=== PATIENT | male | born 1935 | race Caucasian/White ===

== ENCOUNTER 2016-10-24 13:17 | Inpatient (IN) | payer MEDICARE, OTHER ==
[2016-10-24] MEDS ORDERED: SODIUM CHLORIDE 0.9% 500 ML IV STA (14:13)
--- NOTE | 2016-10-24 14:15 | ED ---
GI Bleed HPI - General Source: patient, RN notes reviewed Mode of arrival: ambulatory Limitations: no limitations <Kobe Harman - Last Filed: 10/24/16 15:19> <Ean Thomas - Last Filed: 10/24/16 15:30> - General Chief complaint: GI Bleed Stated complaint: rectal bleeding Time Seen by Provider: 10/24/16 14:00 - History of Present Illness Initial comments: 81-year-old male presents emergency Department chief complaint rectal bleeding. Patient states has been present last 3-4 days. He did have one day that dissipated yesterday but states today he had a large amount of bright red blood. Patient states he has some pain towards his rectal region but states he has known hemorrhoids. Patient states she had similar problems a few months ago and was she told him his prostate was bleeding secondary to previous radiation. Patient states that they want to keep him another day in the hospital but left. Patient denies any dysuria, hematuria, hematemesis copremesis. Patient is not taking aspirin or blood thinners. Patient has no abdominal pain no abdominal cramping. Denies nausea vomiting. Patient states there is a large amount of blood when he has a bowel movement and only minimal stool. (Kobe Harman) - Related Data Home Medications Medication Instructions Recorded Confirmed Furosemide [Lasix] 20 mg PO DAILY 07/06/16 10/24/16 Metoprolol Tartrate [Lopressor] 50 mg PO BID 07/06/16 10/24/16 Umeclidinium [place] [Incruse 1 puff INHALATION RT-DAILY 07/06/16 10/24/16 Ellipta] metFORMIN HCL ER [Glucophage Xr] 500 mg PO DAILY 07/06/16 10/24/16 Gabapentin [Neurontin] 100 mg PO TID 10/24/16 10/24/16 Levothyroxine Sodium [Synthroid] 137 mcg PO DAILY 10/24/16 10/24/16 Naphazoline HCl/Glycerin [Clear 1 drop BOTH EYES DAILY PRN 10/24/16 10/24/16 Eyes Max Redness Rlf Drp] Allergies Allergy/AdvReac Type Severity Reaction Status Date / Time No Known Allergies Allergy Verified 10/24/16 14:37 Review of Systems ROS Other: All systems not noted in ROS Statement are negative. <Kobe Harman - Last Filed: 10/24/16 15:19> ROS Other: All systems not noted in ROS Statement are negative. <Ean Thomas - Last Filed: 10/24/16 15:30> ROS Statement: Those systems with pertinent positive or pertinent negative responses have been documented in the HPI. Past Medical History Past Medical History: Cancer, Diabetes Mellitus, GERD/Reflux, Hypertension, Prostate Disorder, Thyroid Disorder Additional Past Medical History / Comment(s): thyroid cancer, skin cancer, ENLARGED PROSTATE,DIVERTICULAR DX,"HEART SKIPS A BEAT", prostate cancer 2015 3 months radiation last one jun 23 2015 History of Any Multi-Drug Resistant Organisms: None Reported Past Surgical History: Bowel Resection Additional Past Surgical History / Comment(s): thyroidectomy, colonoscopy/ polypectomy, skin cancer removed, cataracts, bowel resection-d/t diverticulits Past Anesthesia/Blood Transfusion Reactions: No Reported Reaction Past Psychological History: No Psychological Hx Reported Additional Psychological History / Comment(s): pt lives in a house,alone,is independant,uses a cane. 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 Smoking Status: Current every day smoker Past Alcohol Use History: Daily Additional Past Alcohol Use History / Comment(s): started smoking in his mid 30' s, 1ppd, refused smoking cessation booklet. admits to drinking 1/4 pint vodka daily. Past Drug Use History: None Reported - Past Family History Father Family Medical History: Asthma, CVA/TIA Additional Family Medical History / Comment(s): pacemaker, smoker Mother Family Medical History: Chest Pain / Angina Additional Family Medical History / Comment(s): smoker <Kobe Harman - Last Filed: 10/24/16 15:19> General Exam Limitations: no limitations General appearance: alert, in no apparent distress Head exam: Present: atraumatic, normocephalic, normal inspection Eye exam: Present: normal appearance, PERRL, EOMI. Absent: scleral icterus, conjunctival injection, periorbital swelling Respiratory exam: Present: wheezes. Absent: normal lung sounds bilaterally, respiratory distress, rales, rhonchi, stridor Cardiovascular Exam: Present: regular rate, normal rhythm, systolic murmur. Absent: normal heart sounds, diastolic murmur, rubs, gallop, clicks GI/Abdominal exam: Present: soft, normal bowel sounds. Absent: distended, tenderness, guarding, rebound, rigid Rectal exam: Present: heme (+) stool, bloody stool. Absent: hemorrhoids, mass, tenderness Back exam: Absent: CVA tenderness (R), CVA tenderness (L) <Kobe Harman - Last Filed: 10/24/16 15:19> Course <Kobe Harman - Last Filed: 10/24/16 15:19> <Ean Thomas - Last Filed: 10/24/16 15:30> Vital Signs 10/24/16 13:32 Temperature 98.1 F Pulse Rate 118 H Respiratory 18 Rate Blood Pressure 124/60 O2 Sat by Pulse 97 Oximetry - Reevaluation(s) Reevaluation #1: 10/24/16 15:29 I did personally do a [id number] examination the patient has been having GI bleeding he does have a history of a similar episode in June of this past year. He relates it to having radiation therapy for prostate cancer. He's had blood per rectum. He denies any other symptoms at this time he has no abdominal pain is had a soft and nontender. He will be admitted for evaluation by GI. I did discuss the case with Dr. Lockett (Ean Thomas) Medical Decision Making - Lab Data Result diagrams: 10/24/16 13:54 10/24/16 13:54 <Kobe Harman - Last Filed: 10/24/16 15:19> - Lab Data Result diagrams: 10/24/16 13:54 10/24/16 13:54 <Ean Thomas - Last Filed: 10/24/16 15:30> - Lab Data Lab Results 10/24/16 10/24/16 10/24/16 Range/Units 13:54 13:54 13:54 WBC 3.3 L (3.8-10.6) k/uL RBC 2.77 L (4.30-5.90) m/uL Hgb 11.1 L (13.0-17.5) gm/dL Hct 32.4 L (39.0-53.0) % MCV 117.0 H (80.0-100.0) fL MCH 40.0 H (25.0-35.0) pg MCHC 34.2 (31.0-37.0) g/dL RDW 14.2 (11.5-15.5) % Plt Count 284 (150-450) k/uL PT 10.7 (9.0-12.0) sec INR 1.1 (<1.1) APTT 24.2 (22.0-30.0) sec Sodium 139 (137-145) mmol/L Potassium 4.3 (3.5-5.1) mmol/L Chloride 101 (98-107) mmol/L Carbon Dioxide 25 (22-30) mmol/L Anion Gap 13 mmol/L BUN 5 L (9-20) mg/dL Creatinine 0.60 L (0.66-1.25) mg/dL Est GFR (MDRD) Af Amer >60 (>60 ml/min/1.73 sqM) Est GFR (MDRD) Non-Af >60 (>60 ml/min/1.73 sqM) Glucose 164 H (74-99) mg/dL Calcium 8.6 (8.4-10.2) mg/dL Magnesium 1.4 L (1.6-2.3) mg/dL Total Bilirubin 0.6 (0.2-1.3) mg/dL AST 96 H (17-59) U/L ALT 41 (21-72) U/L Alkaline Phosphatase 105 (38-126) U/L Total Protein 5.9 L (6.3-8.2) g/dL Albumin 3.0 L (3.5-5.0) g/dL Stool Occult Blood (Negative) Blood Type Blood Type Recheck Antibody Screen Spec Expiration Date 10/24/16 10/24/16 Range/Units 13:54 14:25 WBC (3.8-10.6) k/uL RBC (4.30-5.90) m/uL Hgb (13.0-17.5) gm/dL Hct (39.0-53.0) % MCV (80.0-100.0) fL MCH (25.0-35.0) pg MCHC (31.0-37.0) g/dL RDW (11.5-15.5) % Plt Count (150-450) k/uL PT (9.0-12.0) sec INR (<1.1) APTT (22.0-30.0) sec Sodium (137-145) mmol/L Potassium (3.5-5.1) mmol/L Chloride (98-107) mmol/L Carbon Dioxide (22-30) mmol/L Anion Gap mmol/L BUN (9-20) mg/dL Creatinine (0.66-1.25) mg/dL Est GFR (MDRD) Af Amer (>60 ml/min/1.73 sqM) Est GFR (MDRD) Non-Af (>60 ml/min/1.73 sqM) Glucose (74-99) mg/dL Calcium (8.4-10.2) mg/dL Magnesium (1.6-2.3) mg/dL Total Bilirubin (0.2-1.3) mg/dL AST (17-59) U/L ALT (21-72) U/L Alkaline Phosphatase (38-126) U/L Total Protein (6.3-8.2) g/dL Albumin (3.5-5.0) g/dL Stool Occult Blood Positive (Negative) Blood Type A Positive Blood Type Recheck CABO Indicated Antibody Screen NEGATIVE Spec Expiration Date 10/27/2016 7990 Disposition Time of Disposition: 15:14 <Kobe Harman - Last Filed: 10/24/16 15:19> <Ean Thomas - Last Filed: 10/24/16 15:30> Clinical Impression: GI bleed, Anemia Disposition: ADMITTED IP TO THIS [facility] Condition: Fair Referrals: Jesse Gee MD [Primary Care Provider] - 1-2 days
[2016-10-24 14:32] LABS: Basophils % (A) 1 %; CH 39.4; CHCM 33.8; Eosinophils # (A) 0.1 k/uL (0-0.7); Eosinophils % (A) 1 %; HCT 32.4 % (39.0-53.0); HDW 2.41; HGB 11.1 gm/dL (13.0-17.5); Luc # (Auto) 0.09; Luc % (Auto) 3; Lymphocytes # (A) 0.6 k/uL (1.0-4.8); Lymphocytes % (A) 18 %; MCHC 34.2 g/dL (31.0-37.0); Macrocytosis Marked; Mean Platelet Volume 7.7; Monocytes # (A) 0.2 k/uL (0-1.0); Monocytes % (A) 7 %; Neutrophils # (A) 2.3 k/uL (1.3-7.7); Neutrophils % (A) 71 %; RBC 2.77 m/uL (4.30-5.90); RDW 14.2 % (11.5-15.5); WBC 3.3 k/uL (3.8-10.6)
[2016-10-24 14:40] LABS: INR 1.1 (<1.1); Partial Thromboplastin Time 24.2 sec (22.0-30.0); Prothrombin Time 10.7 sec (9.0-12.0)
[2016-10-24 14:45] LABS: ALT 41 U/L (21-72); AST 96 U/L (17-59); Alkaline Phosphatase 105 U/L (38-126); Anion Gap 13 mmol/L; Blood Urea Nitrogen 5 mg/dL (9-20); Calcium 8.6 mg/dL (8.4-10.2); Carbon Dioxide 25 mmol/L (22-30); Chloride 101 mmol/L (98-107); Glucose 164 mg/dL (74-99); Magnesium 1.4 mg/dL (1.6-2.3); Non-African American GFR(MDRD) >60 (>60 ml/min/1.73 sqM); Potassium 4.3 mmol/L (3.5-5.1); Sodium 139 mmol/L (137-145); Total Bilirubin 0.6 mg/dL (0.2-1.3); Total Protein 5.9 g/dL (6.3-8.2)
[2016-10-24] MEDS ORDERED: ACETAMINOPHEN TAB 325 MG TAB PO PRN (15:19)
[2016-10-24] MEDS ORDERED: NALOXONE 0.4 MG/ML 1 ML VIAL IV PRN (15:19)
[2016-10-24] MEDS ORDERED: NAPHAZOLINE-PHENIRA 0.025-0.3% DROPS 15 ML BTL BOTH EYES PRN (15:21)
[2016-10-24 15:54] LABS: Manual Review Performed
[2016-10-24] MEDS: GABAPENTIN 100 MG CAP PO SCH ×2 (16:37→21:33)
[2016-10-24] MEDS ORDERED: SODIUM CHLORIDE 0.9% 1,000 ML IV ONE ×2 (16:51→18:34)
[2016-10-24 16:52] LABS: Glucose,Whole Blood 127 mg/dL (75-99)
[2016-10-24] MEDS: METOPROLOL TARTRATE 50 MG TAB PO SCH (18:32)
[2016-10-24] MEDS: SODIUM CHLORIDE 0.9% 1,000 ML IV SCH (18:33)
[2016-10-24 19:38] LABS: Basophils % (A) 1 %; CH 39.2; CHCM 33.5; Eosinophils # (A) 0.1 k/uL (0-0.7); Eosinophils % (A) 2 %; HDW 2.41; Luc # (Auto) 0.05; Luc % (Auto) 2; Lymphocytes # (A) 0.5 k/uL (1.0-4.8); Lymphocytes % (A) 18 %; MCH 39.8 pg (25.0-35.0); MCHC 33.9 g/dL (31.0-37.0); MCV 117.4 fL (80.0-100.0); Macrocytosis Marked; Mean Platelet Volume 7.5; Monocytes # (A) 0.2 k/uL (0-1.0); Monocytes % (A) 6 %; Neutrophils # (A) 2.1 k/uL (1.3-7.7); Neutrophils % (A) 72 %; RDW 14.1 % (11.5-15.5); WBC 2.9 k/uL (3.8-10.6); WBC (Perox) 2.96
[2016-10-24 19:51] LABS: HGB 9.2 gm/dL (13.0-17.5)
[2016-10-24 20:58] LABS: Manual Review Performed
[2016-10-24] MEDS ORDERED: metFORMIN 500 MG TAB PO SCH (21:00)
[2016-10-24] MEDS: MELATONIN 3 MG TABLET PO SCH (21:33)
[2016-10-25 01:20] LABS: Basophils % (A) 1 %; CHCM 33.6; Eosinophils # (A) 0.1 k/uL (0-0.7); Eosinophils % (A) 4 %; HCT 25.3 % (39.0-53.0); HDW 2.39; HGB 8.5 gm/dL (13.0-17.5); Luc # (Auto) 0.06; Luc % (Auto) 3; Lymphocytes # (A) 0.6 k/uL (1.0-4.8); Lymphocytes % (A) 24 %; MCH 39.3 pg (25.0-35.0); MCHC 33.7 g/dL (31.0-37.0); MCV 116.5 fL (80.0-100.0); Macrocytosis Marked; Mean Platelet Volume 8.3; Monocytes # (A) 0.2 k/uL (0-1.0); Monocytes % (A) 7 %; Neutrophils # (A) 1.5 k/uL (1.3-7.7); Neutrophils % (A) 62 %; RBC 2.17 m/uL (4.30-5.90); RDW 14.3 % (11.5-15.5); WBC 2.4 k/uL (3.8-10.6); WBC (Perox) 2.52
[2016-10-25 02:15] LABS: Manual Review Performed
[2016-10-25] MEDS: SODIUM CHLORIDE 0.9% 1,000 ML IV SCH ×2 (03:34→18:07)
[2016-10-25] MEDS: LEVOTHYROXINE 137 MCG TAB PO SCH (06:17)
[2016-10-25 08:00] LABS: Basophils % (A) 1 %; CHCM 33.2; Eosinophils # (A) 0.1 k/uL (0-0.7); Eosinophils % (A) 3 %; HCT 26.2 % (39.0-53.0); HDW 2.33; HGB 8.7 gm/dL (13.0-17.5); Luc # (Auto) 0.05; Luc % (Auto) 2; Lymphocytes # (A) 0.5 k/uL (1.0-4.8); Lymphocytes % (A) 22 %; MCH 39.3 pg (25.0-35.0); MCHC 33.4 g/dL (31.0-37.0); MCV 117.8 fL (80.0-100.0); Macrocytosis Marked; Mean Platelet Volume 8.6; Monocytes # (A) 0.1 k/uL (0-1.0); Monocytes % (A) 6 %; Neutrophils # (A) 1.4 k/uL (1.3-7.7); Neutrophils % (A) 65 %; RBC 2.22 m/uL (4.30-5.90); RDW 14.2 % (11.5-15.5); WBC 2.2 k/uL (3.8-10.6); WBC (Perox) 2.34
[2016-10-25] MEDS ORDERED: FUROSEMIDE 20 MG TAB PO SCH (09:00)
[2016-10-25 09:09] LABS: Manual Review Performed
[2016-10-25] MEDS: METOPROLOL TARTRATE 50 MG TAB PO SCH ×2 (09:34→20:57)
[2016-10-25] MEDS: PANTOPRAZOLE 40 MG/10 ML VIAL IV SCH (09:34)
[2016-10-25] MEDS: GABAPENTIN 100 MG CAP PO SCH ×3 (09:34→20:57)
[2016-10-25 11:36] VITALS: BMI 25.9
[2016-10-25 11:40] LABS: Glucose,Whole Blood 155 mg/dL (75-99)
[2016-10-25] MEDS ORDERED: Magnesium Replacement Protocol 1 EACH MISC MISCELLANE PRN (12:30)
--- NOTE | 2016-10-25 13:06 | XR ---
EXAMINATION TYPE: XR chest 1V DATE OF EXAM: 10/25/2016 12:56 PM HISTORY: r/o pul edema. REFERENCE: Previous study dated 02/16/2011. FINDINGS: Lungs are overinflated. There is a calcified granuloma in the right CP angle. The lungs are otherwise clear. Pleural spaces are clear. Heart size is upper limits of normal. IMPRESSION: 1. COPD. 2. EVIDENCE OF OLD GRANULOMATOUS DISEASE.
[2016-10-25] MEDS: MAGNESIUM SULFATE-D5W PMX 1 GM in DEXTROSE/WATER 1 100ML.BAG IVPB SCH ×3 (13:46→16:08)
[2016-10-25] MEDS: TIOTROPIUM 18 MCG/PUFF INHALER INHALATION SCH (15:24)
[2016-10-25] MEDS: ALBUTEROL NEBULIZED 2.5 MG/3 ML INHALATION SCH ×2 (15:24→19:42)
[2016-10-25 16:34] LABS: Glucose,Whole Blood 199 mg/dL (75-99)
[2016-10-25] MEDS: INSULIN LISPRO (humaLOG) 300 UNIT/3 ML VIAL SQ SCH ×2 (17:57→20:53)
--- NOTE | 2016-10-25 19:14 | HP ---
DATE OF ADMISSION: 10/24/2016 The patient is a 81-year-old came in with rectal bleeding. Patient has multiple episodes for about last 3 to 4 days. Patient says it is constant and continuous and the patient had hemoglobin of 11.1 on admission, now around 8.7. Patient had ( ) morning and patient has radiation to prostate in the past and has radiation proctitis a few months ago, I believe it is in June and at the time colonoscopy showed some changes consistent with radiation proctitis. Patient denied any fever, chills, the patient denied nausea, vomiting, abdominal pain. Patient denied any recent use of antibiotics. REVIEW OF SYSTEMS: CONSTITUTIONAL: No fever, no malaise, no fatigue. HEENT: No recent visual problems or hearing problems. Denied any sore throat. CARDIOVASCULAR: No chest pain, orthopnea, PND, no palpitations, no syncope. PULMONARY: No shortness of breath, no cough, no hemoptysis. GASTROINTESTINAL: As described in HPI. NEUROLOGICAL: No headaches, no weakness, no numbness. HEMATOLOGICAL: Denies any bleeding or petechiae. GENITOURINARY: Denies any burning micturition, frequency, or urgency. MUSCULOSKELETAL/RHEUMATOLOGICAL: Denies any joint pain, swelling, or any muscle pain. ENDOCRINE: Denies any polyuria or polydipsia. The rest of the 14 point review of systems is negative. Home medications include: 1. Lasix 20 mg oral daily. 2. Metoprolol. 3. Metformin. 4. Gabapentin. 5. Levothyroxine. 6. Nafzolin. ALLERGIES: No known drug allergies. Past medical history significant for prostate cancer, with radiation in the past, diabetes mellitus, gastroesophageal reflux disease, hypertension, hypothyroidism, thyroid cancer. PAST SURGICAL HISTORY: Significant for bowel resection, thyroidectomy, colonoscopy and polypectomy. Skin cancer removed in the past. SOCIAL HISTORY: Patient continues to smoke. Denied any alcohol abuse or drug abuse. FAMILY HISTORY: Father had asthma and cerebrovascular accident. Mother had coronary artery disease and was a smoker. PHYSICAL EXAMINATION: VITAL SIGNS: Temperature is 97.4, pulse of 74, respiratory rate of 18, blood pressure is 97/52, saturating at 94% on room air. GENERAL: The patient is alert and oriented x3, not in any acute distress. Patient does look significantly pale. Eye examination: The pupils are round and equally reacting to light, conjunctival pallor. No scleral icterus was appreciated. CARDIOVASCULAR: S1 and S2 present. No murmurs, rubs, or gallops. PULMONARY: Rhonchus breath sounds bilaterally, fairly good air into bilateral lung graham. No wheezing was appreciated. No crackles were appreciated. ABDOMEN: Soft, nontender, nondistended, normoactive bowel sounds. No palpable organomegaly. MUSCULOSKELETAL: No joint swelling or deformity. EXTREMITIES: No cyanosis, clubbing, or pedal edema. NEUROLOGICAL: Gross neurological examination did not reveal any focal deficits. SKIN: No rashes. LABORATORY DATA: CBC, CMP are abnormal for low platelet count of 2200. Patient has elevated MCV in spite of acute GI bleed. I will obtain B12 level because of Bicytopenia. AST is minimally elevated which is a nonspecific elevation. No further intervention at this time. ASSESSMENT AND PLAN: 1. Acute gastrointestinal bleed secondary to possible lower gastrointestinal bleed. Patient has a history of radiation proctitis. Gastroenterology was consulted. If the patient has another episode of gastrointestinal bleed, we will transfuse him blood. At this point of time, we will hold off on transfusion. 2. Type 2 diabetes mellitus. Sliding scale insulin at this point of time. 3. Hypertension. 4. History of prostate cancer and thyroid cancer. 5. Hypothyroidism. 6. Type 2 diabetes mellitus. 7. Hypertension, patient except for beta cole will hold off on the rest of his antihypertensive medication because of hypotension, which is again secondary to acute GI bleed. Closely monitor 100 mL of IV fluid. Metformin will be discontinued because of ( ). 8. Hypomagnesemia supplement. 9. Bicytopenia with elevated MCV will obtain a B12 level and RBC folate level.
[2016-10-25] MEDS: SYMBICORT 160-4.5 MCG INHALER INHALATION SCH (19:42)
[2016-10-25 20:52] LABS: Glucose,Whole Blood 97 mg/dL (75-99)
[2016-10-25] MEDS: MELATONIN 3 MG TABLET PO SCH (20:57)
--- NOTE | 2016-10-26 03:45 | P.CONS ---
History of Present Illness - Reason for Consult Consult date: 10/25/16 Rectal bleeding - History of Present Illness Patient is a 81-year old male who was admitted through the ER because of rectal bleeding that was noted for 3-4 days. Described as fresh bleeding. No abdominal pains. Had similar presentation in June 2016 thought to be related to hemorrhoids or radiation proctitis. Hb back then was 11.4. His Hb on admission was 11.1 and this dropped to 8.7 and 8.5. No UGI complaints or hematemesis. Review of Systems Constitutional: No fever, chills or unintentional weight loss Neurologic: No headaches, double vision or any sensory or motor changes Cardiopulmonary: No chest pains, SOB or palpitations Gastrointestinal: See PI above Endocrine: Historyof DM and thyroid disease Genitourinary: No hematuria, dysuria or frequency. History of prostate cancer S/ P radiation Muskuloskeletal: No joint swelling or pain Skin: No rashes Psychiatric: No anxiety or depression All systems: negative Past Medical History Past Medical History: Cancer, Diabetes Mellitus, GERD/Reflux, Hypertension, Prostate Disorder, Thyroid Disorder Additional Past Medical History / Comment(s): thyroid cancer, skin cancer, ENLARGED PROSTATE,DIVERTICULAR DX,"HEART SKIPS A BEAT", prostate cancer 2015 3 months radiation last one jun 23 2015 History of Any Multi-Drug Resistant Organisms: None Reported Past Surgical History: Bowel Resection Additional Past Surgical History / Comment(s): thyroidectomy, colonoscopy/ polypectomy, skin cancer removed, cataracts, bowel resection-d/t diverticulits Past Anesthesia/Blood Transfusion Reactions: No Reported Reaction Past Psychological History: No Psychological Hx Reported Additional Psychological History / Comment(s): pt lives in a house,alone,is independant,uses a cane. 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 Smoking Status: Current every day smoker Past Alcohol Use History: Daily Additional Past Alcohol Use History / Comment(s): started smoking in his mid 30' s, 1ppd, refused smoking cessation booklet. admits to drinking 1/4 pint vodka daily. Past Drug Use History: None Reported - Past Family History Father Family Medical History: Asthma, CVA/TIA Additional Family Medical History / Comment(s): pacemaker, smoker Mother Family Medical History: Chest Pain / Angina Additional Family Medical History / Comment(s): smoker Medications and Allergies Home Medications Medication Instructions Recorded Confirmed Type Furosemide [Lasix] 20 mg PO DAILY 07/06/16 10/24/16 History Metoprolol Tartrate [Lopressor] 50 mg PO BID 07/06/16 10/24/16 History Umeclidinium [place] [Incruse 1 puff INHALATION RT-DAILY 07/06/16 10/24/16 History Ellipta] metFORMIN HCL ER [Glucophage Xr] 500 mg PO DAILY 07/06/16 10/24/16 History Gabapentin [Neurontin] 100 mg PO TID 10/24/16 10/24/16 History Levothyroxine Sodium [Synthroid] 137 mcg PO DAILY 10/24/16 10/24/16 History Naphazoline HCl/Glycerin [Clear 1 drop BOTH EYES DAILY PRN 10/24/16 10/24/16 History Eyes Max Redness Rlf Drp] Allergies Allergy/AdvReac Type Severity Reaction Status Date / Time No Known Allergies Allergy Verified 10/24/16 14:37 Physical Exam Vitals: Vital Signs Temp Pulse Pulse Resp BP Pulse Ox 10/25/16 20:00 97.8 F 76 18 106/61 100 10/25/16 19:58 72 10/25/16 19:48 72 10/25/16 16:00 89 18 97/67 96 10/25/16 15:40 74 10/25/16 15:29 70 10/25/16 11:51 84 18 97/52 94 L 10/25/16 08:00 97.4 F L 85 18 101/64 99 10/25/16 04:00 98.6 F 82 18 91/53 97 10/25/16 00:00 97.8 F 89 18 95/54 95 Intake and Output 10/25/16 10/25/16 10/26/16 14:59 22:59 06:59 Intake Total 120 Balance 120 Intake: Oral 120 Other: Voiding Method Toilet Diaper # Voids 1 1 # Bowel Movements 1 Weight 77.5 kg Patient Weight 10/26/16 06:59 Weight 77.5 kg General: Appeared stated age, very pleasant in no acute distress Head and neck: Normocephalic and atraumatic, conjunctivae pink and sclerae not icteric, no masses in the neck or tracheal shifts, no thyromegaly Lungs: Clear to auscultation with no dullness to percussion Heart: Regular, no abnormal sounds, gallops or friction rubs Abdomen: Soft, no masses, organomegalies or tenderness, BS present Extremities: No clubbing, cyanosis or edema Neurologic: Alert and oriented X3. Cranial nerves grossly intact with no gross sensory or motor changes Results CBC & Chem 7: 10/25/16 06:26 10/24/16 13:54 Labs: Abnormal Lab Results - Last 24 Hours (Table) 10/25/16 10/25/16 10/25/16 Range/Units 01:07 06:26 11:38 WBC 2.4 L 2.2 L (3.8-10.6) k/uL RBC 2.17 L 2.22 L (4.30-5.90) m/uL Hgb 8.5 L 8.7 L (13.0-17.5) gm/dL Hct 25.3 L 26.2 L (39.0-53.0) % MCV 116.5 H 117.8 H (80.0-100.0) fL MCH 39.3 H 39.3 H (25.0-35.0) pg Lymphocytes # 0.6 L 0.5 L (1.0-4.8) k/uL POC Glucose (mg/dL) 155 H (75-99) mg/dL 10/25/16 Range/Units 16:34 WBC (3.8-10.6) k/uL RBC (4.30-5.90) m/uL Hgb (13.0-17.5) gm/dL Hct (39.0-53.0) % MCV (80.0-100.0) fL MCH (25.0-35.0) pg Lymphocytes # (1.0-4.8) k/uL POC Glucose (mg/dL) 199 H (75-99) mg/dL Assessment and Plan Plan: 81-year old male with lower GI bleeding likely related to diverticular disease, proctitis, hemorrhoids or other perianal pathology. Patient is on clear liquid diet which will be continued. I will review last colonoscopy. I will consider repeat colonoscopy and possible argon plasma coagulation based on his course.
[2016-10-26 06:20] LABS: CH 38.9; CHCM 32.8; HCT 27.4 % (39.0-53.0); HDW 2.37; HGB 8.9 gm/dL (13.0-17.5); MCH 38.8 pg (25.0-35.0); MCHC 32.7 g/dL (31.0-37.0); MCV 118.9 fL (80.0-100.0); Macrocytosis Marked; Mean Platelet Volume 8.6; RDW 14.2 % (11.5-15.5); WBC 3.1 k/uL (3.8-10.6)
[2016-10-26 06:27] LABS: Glucose,Whole Blood 126 mg/dL (75-99)
[2016-10-26 06:32] LABS: Anion Gap 5 mmol/L; Blood Urea Nitrogen 4 mg/dL (9-20); Calcium 7.9 mg/dL (8.4-10.2); Carbon Dioxide 25 mmol/L (22-30); Chloride 105 mmol/L (98-107); Glucose 109 mg/dL (74-99); Magnesium 1.9 mg/dL (1.6-2.3); Non-African American GFR(MDRD) >60 (>60 ml/min/1.73 sqM); Potassium 3.9 mmol/L (3.5-5.1); Sodium 135 mmol/L (137-145)
[2016-10-26] MEDS: INSULIN LISPRO (humaLOG) 300 UNIT/3 ML VIAL SQ SCH ×4 (06:32→21:52)
[2016-10-26] MEDS: metFORMIN 500 MG TAB PO SCH (06:39)
[2016-10-26] MEDS: LEVOTHYROXINE 137 MCG TAB PO SCH (06:39)
--- NOTE | 2016-10-26 08:12 | P.PN ---
Subjective Principal diagnosis: rectal bleeding 81-year-old mild history of prostate carcinoma admitted with rectal bleeding. Patient underwent colonoscopy for rectal bleeding a few months ago by Dr. Soliz with findings of radiation proctitis. No recurrence of bleeding for more than 24 hours. Tolerating clear liquids. Requesting diet advancement. Denies abdominal pain. Afebrile.hemoglobin 8.9. Objective - Vital Signs Vital signs: Vital Signs Temp 98.1 F 10/26/16 00:00 Pulse 77 10/26/16 04:00 Resp 16 10/26/16 04:00 BP 103/55 10/26/16 04:00 Pulse Ox 96 10/26/16 04:00 Intake & Output 10/25/16 10/26/16 10/26/16 18:59 06:59 18:59 Intake Total 120 Output Total 50 Balance 120 -50 Weight 77.5 kg 77 kg Intake: Oral 120 Output: Urine 50 Other: Voiding Method Toilet Diaper # Voids 1 1 # Bowel Movements 1 1 - Exam General appearance: The patient is alert, oriented, in no acute distress. HET: Head is normocephalic and atraumatic. Pupils are equal and reactive. Oropharynx is clear without lesions. Neck: Supple without lymphadenopathy. Trachea midline. Heart: S1 S2. Regular rate and rhythm. Lungs: No crackles or wheezes are heard. Abdomen: Soft, nontender, nondistended with bowel sounds. No peritoneal signs. No palpable organomegaly or masses. Extremities: Normal skin color and turgor. No cyanosis, rash, ulceration, clubbing, or edema. Radial and pedal pulses are 2/4 bilaterally. Neurological: No focal deficits. Strength and sensation are grossly intact. - Labs CBC & Chem 7: 10/26/16 06:08 10/26/16 06:08 Labs: Abnormal Lab Results - Last 24 Hours (Table) 10/25/16 10/25/16 10/25/16 Range/Units 06:26 11:38 16:34 WBC 2.2 L (3.8-10.6) k/uL RBC 2.22 L (4.30-5.90) m/uL Hgb 8.7 L (13.0-17.5) gm/dL Hct 26.2 L (39.0-53.0) % MCV 117.8 H (80.0-100.0) fL MCH 39.3 H (25.0-35.0) pg Lymphocytes # 0.5 L (1.0-4.8) k/uL Sodium (137-145) mmol/L BUN (9-20) mg/dL Creatinine (0.66-1.25) mg/dL Glucose (74-99) mg/dL POC Glucose (mg/dL) 155 H 199 H (75-99) mg/dL Calcium (8.4-10.2) mg/dL 10/26/16 10/26/16 10/26/16 Range/Units 06:08 06:08 06:24 WBC 3.1 L (3.8-10.6) k/uL RBC 2.30 L (4.30-5.90) m/uL Hgb 8.9 L (13.0-17.5) gm/dL Hct 27.4 L (39.0-53.0) % MCV 118.9 H (80.0-100.0) fL MCH 38.8 H (25.0-35.0) pg Lymphocytes # (1.0-4.8) k/uL Sodium 135 L (137-145) mmol/L BUN 4 L (9-20) mg/dL Creatinine 0.60 L (0.66-1.25) mg/dL Glucose 109 H (74-99) mg/dL POC Glucose (mg/dL) 126 H (75-99) mg/dL Calcium 7.9 L (8.4-10.2) mg/dL Assessment and Plan (1) GI bleed Narrative/Plan: 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 Full liquid diet. Observe. Monitor CBC. 2. Repeat colonoscopy not planned at this time. We'll follow closely with you. Assessment and plan of care discussed with Dr. Camacho
[2016-10-26] MEDS: METOPROLOL TARTRATE 50 MG TAB PO SCH ×2 (08:41→08:42)
[2016-10-26] MEDS: PANTOPRAZOLE 40 MG/10 ML VIAL IV SCH (08:42)
[2016-10-26] MEDS: GABAPENTIN 100 MG CAP PO SCH ×3 (08:43→21:52)
[2016-10-26] MEDS: SODIUM CHLORIDE 0.9% 1,000 ML IV SCH (08:43)
[2016-10-26] MEDS: ALBUTEROL NEBULIZED 2.5 MG/3 ML INHALATION SCH ×3 (09:38→20:28)
[2016-10-26] MEDS: SYMBICORT 160-4.5 MCG INHALER INHALATION SCH ×2 (09:40→20:28)
[2016-10-26 11:52] LABS: Glucose,Whole Blood 139 mg/dL (75-99)
[2016-10-26] MEDS: TIOTROPIUM 18 MCG/PUFF INHALER INHALATION SCH (12:18)
[2016-10-26] MEDS: predniSONE 20 MG TAB PO SCH (16:22)
[2016-10-26] MEDS ORDERED: CYANOCOBALAMIN 1,000 MCG/ML 1 ML VIAL IM ONE (16:30)
[2016-10-26 16:57] LABS: Glucose,Whole Blood 182 mg/dL (75-99)
[2016-10-26 21:15] LABS: Glucose,Whole Blood 219 mg/dL (75-99)
[2016-10-26] MEDS: MELATONIN 3 MG TABLET PO SCH (21:52)
--- NOTE | 2016-10-26 23:19 | PN ---
81-year-old admitted with rectal bleeding, probably due to radiation proctitis and patient is clinically doing well at this point of time. Does not have any more bleed. Although patient respiratory status patient is still rhonchorous on exam. I will start him on systemic steroids and we will watch one more day for any signs or symptoms of GI bleed and no colonoscopy is being planned at this point of time. REVIEW OF SYSTEMS: CARDIOVASCULAR: No chest pain, no orthopnea, no PND, no palpitations. PULMONARY: Denied any shortness of breath. No cough or hemoptysis. GASTROINTESTINAL: No diarrhea, nausea or vomiting. No abdominal pain. Normoactive bowel sounds. NEUROLOGIC: No headaches, no weakness, no numbness. Medications were reviewed. PHYSICAL EXAMINATION: VITAL SIGNS: Temperature is 97.3, pulse 78, respiratory rate of 18, blood pressure 111/58, saturating at 97% on room air. GENERAL: The patient is alert and oriented x3, not in any acute distress. Well developed, well nourished. HEENT: Pupils are round and equally reacting to light. EOMI. No scleral icterus. No conjunctival pallor. Normocephalic, atraumatic. No pharyngeal erythema. No thyromegaly. CARDIOVASCULAR: S1 and S2 present. No murmurs, rubs, or gallops. PULMONARY: Rhonchus breath sounds bilaterally. No wheezing was appreciated. Mildly decreased air entry into bilateral lung graham. ABDOMEN: Soft, nontender, nondistended, normoactive bowel sounds. No palpable organomegaly. MUSCULOSKELETAL: No joint swelling or deformity. EXTREMITIES: No cyanosis, clubbing, or pedal edema. NEUROLOGICAL: Gross neurological examination did not reveal any focal deficits. SKIN: No rashes. LABORATORY DATA: CBC, CMP are abnormal for hemoglobin of 8.9 low but fairly stable. ASSESSMENT AND PLAN: 1. Acute gastrointestinal bleed and acute blood loss anemia from lower gastrointestinal bleed probably related to radiation proctitis which is improving at this point of time. 2. Type 2 diabetes mellitus. 3. Hypertension. 4. History of prostate cancer and thyroid cancer in the past both of which are in remission. 5. Hypothyroidism. 6. Type 2 diabetes mellitus. 7. Hypomagnesemia. 8. Bicytopenia because of which I obtained a B12 level which is 336. We will go ahead and give him an injection of Cyanocobalamin.
[2016-10-27] MEDS: SODIUM CHLORIDE 0.9% 1,000 ML IV SCH ×2 (00:39→09:01)
[2016-10-27 05:55] LABS: Glucose,Whole Blood 153 mg/dL (75-99)
[2016-10-27] MEDS: LEVOTHYROXINE 137 MCG TAB PO SCH (06:28)
[2016-10-27] MEDS: INSULIN LISPRO (humaLOG) 300 UNIT/3 ML VIAL SQ SCH (06:29)
[2016-10-27] MEDS: metFORMIN 500 MG TAB PO SCH (06:29)
[2016-10-27 07:18] LABS: CH 38.3; CHCM 32.4; HCT 27.8 % (39.0-53.0); HDW 2.42; HGB 9.1 gm/dL (13.0-17.5); MCHC 32.8 g/dL (31.0-37.0); MCV 118.6 fL (80.0-100.0); Macrocytosis Marked; Mean Platelet Volume 9.2; RBC 2.34 m/uL (4.30-5.90); RDW 14.4 % (11.5-15.5); WBC 3.5 k/uL (3.8-10.6)
[2016-10-27 07:25] LABS: Anion Gap 9 mmol/L; Blood Urea Nitrogen 6 mg/dL (9-20); Calcium 8.8 mg/dL (8.4-10.2); Carbon Dioxide 23 mmol/L (22-30); Chloride 106 mmol/L (98-107); Glucose 120 mg/dL (74-99); Non-African American GFR(MDRD) >60 (>60 ml/min/1.73 sqM); Potassium 4.7 mmol/L (3.5-5.1); Sodium 138 mmol/L (137-145)
[2016-10-27] MEDS: ALBUTEROL NEBULIZED 2.5 MG/3 ML INHALATION SCH (08:01)
[2016-10-27] MEDS: TIOTROPIUM 18 MCG/PUFF INHALER INHALATION SCH (08:01)
[2016-10-27] MEDS: SYMBICORT 160-4.5 MCG INHALER INHALATION SCH (08:01)
--- NOTE | 2016-10-27 08:50 | P.PN ---
Subjective Principal diagnosis: rectal bleeding 81-year-old mild history of prostate carcinoma admitted with rectal bleeding. Patient underwent colonoscopy for rectal bleeding a few months ago by Dr. Soliz with findings of radiation proctitis. No recurrence of bleeding for more than 48 hours. Tolerating low fiber diet. Denies abdominal pain. Afebrile. Hemoglobin 9.1. Objective - Vital Signs Vital signs: Vital Signs Temp 97.8 F 10/27/16 00:00 Pulse 72 10/27/16 08:11 Resp 17 10/27/16 04:00 BP 114/67 10/27/16 04:00 Pulse Ox 94 L 10/27/16 04:00 Intake & Output 10/26/16 10/27/16 10/27/16 18:59 06:59 18:59 Intake Total 180 Output Total 50 Balance 130 Weight 80.2 kg Intake: Oral 180 Output: Urine 50 Other: Voiding Method Toilet Diaper # Voids 1 2 - Exam General appearance: The patient is alert, oriented, in no acute distress. HET: Head is normocephalic and atraumatic. Pupils are equal and reactive. Oropharynx is clear without lesions. Neck: Supple without lymphadenopathy. Trachea midline. Heart: S1 S2. Regular rate and rhythm. Lungs: No crackles or wheezes are heard. Abdomen: Soft, nontender, nondistended with bowel sounds. No peritoneal signs. No palpable organomegaly or masses. Extremities: Normal skin color and turgor. No cyanosis, rash, ulceration, clubbing, or edema. Radial and pedal pulses are 2/4 bilaterally. Neurological: No focal deficits. Strength and sensation are grossly intact. - Labs CBC & Chem 7: 10/27/16 07:03 10/27/16 07:00 Labs: Abnormal Lab Results - Last 24 Hours (Table) 10/26/16 10/26/16 10/26/16 Range/Units 11:40 16:41 21:13 WBC (3.8-10.6) k/uL RBC (4.30-5.90) m/uL Hgb (13.0-17.5) gm/dL Hct (39.0-53.0) % MCV (80.0-100.0) fL MCH (25.0-35.0) pg BUN (9-20) mg/dL Creatinine (0.66-1.25) mg/dL Glucose (74-99) mg/dL POC Glucose (mg/dL) 139 H 182 H 219 H (75-99) mg/dL 10/27/16 10/27/16 10/27/16 Range/Units 05:53 07:00 07:03 WBC 3.5 L (3.8-10.6) k/uL RBC 2.34 L (4.30-5.90) m/uL Hgb 9.1 L (13.0-17.5) gm/dL Hct 27.8 L (39.0-53.0) % MCV 118.6 H (80.0-100.0) fL MCH 39.0 H (25.0-35.0) pg BUN 6 L (9-20) mg/dL Creatinine 0.64 L (0.66-1.25) mg/dL Glucose 120 H (74-99) mg/dL POC Glucose (mg/dL) 153 H (75-99) mg/dL Assessment and Plan (1) GI bleed Narrative/Plan: 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 Agreeable for discharge. 2. Repeat colonoscopy not planned at this time. We'll follow as needed. Discharge per medicine. Assessment and plan of care discussed with Dr. Camacho
[2016-10-27] MEDS: METOPROLOL TARTRATE 50 MG TAB PO SCH (09:00)
[2016-10-27] MEDS: PANTOPRAZOLE 40 MG/10 ML VIAL IV SCH (09:00)
[2016-10-27] MEDS: predniSONE 20 MG TAB PO SCH (09:00)
[2016-10-27] MEDS: GABAPENTIN 100 MG CAP PO SCH (09:01)
[2016-10-27 09:43] VITALS: PULSE 100
[2016-10-27 09:44] VITALS: BP 114/60; RESP 18; TEMP 96.9
--- NOTE | 2016-10-28 09:57 | DS ---
DATE OF ADMISSION: 10/24/2016 DATE OF DISCHARGE: 10/27/2016 The patient was admitted with rectal bleeding secondary to radiation proctitis and patient did not have any more bleed and patient is being discharged today in stable medical condition to home and patient was seen and examined on the day of discharge. Vitals are stable. PHYSICAL EXAMINATION: GENERAL: The patient is alert and oriented x3, not in any acute distress. Well developed, well nourished. HEENT: Pupils are round and equally reacting to light. EOMI. No scleral icterus. No conjunctival pallor. Normocephalic, atraumatic. No pharyngeal erythema. No thyromegaly. CARDIOVASCULAR: S1 and S2 present. No murmurs, rubs, or gallops. PULMONARY: Chest is clear to auscultation, no wheezing or crackles. ABDOMEN: Soft, nontender, nondistended, normoactive bowel sounds. No palpable organomegaly. MUSCULOSKELETAL: No joint swelling or deformity. EXTREMITIES: No cyanosis, clubbing, or pedal edema. NEUROLOGICAL: Gross neurological examination did not reveal any focal deficits. SKIN: No rashes. FINAL DIAGNOSES: 1. Acute gastrointestinal bleed and acute blood loss anemia from lower gastrointestinal bleed probably related to radiation proctitis. 2. Type 2 diabetes mellitus. 3. Hypertension. 4. History of prostate cancer and thyroid cancer in the past. 5. Hypothyroidism. 6. Hypomagnesemia. 7. Bicytopenia with low-normal B12 because of which we gave him B12 injection. Patient is being discharged today in stable medical condition to home. Please refer to my depart summary for the details of discharge medications. Patient will follow with Dr. Jesse Gee on the 29 of October at 4 p.m. DISCHARGE DIET: Cardiac and diabetic 1800 calorie diet. I spent greater than 35 minutes in total discharge process.
== END 2016-10-27 12:33 | disposition home or self-care (01) | DRG 394 ==
LOC: EC 13:17 → 4MS4W 15:30 → 6SEL 19:31
PROVIDERS: ADMIT Hospitalist; ATTEND Hospitalist
DX: K62.7 Radiation proctitis (principal); D62 Acute posthemorrhagic anemia; I95.9 Hypotension, unspecified; K92.2 Gastrointestinal hemorrhage, unspecified; E11.9 Type 2 diabetes mellitus without complications; E83.42 Hypomagnesemia; K21.9 Gastro-esophageal reflux disease without esophagitis; I10 Essential (primary) hypertension; E53.8 Deficiency of other specified B group vitamins; N40.0 Benign prostatic hyperplasia without lower urinary tract symptoms; F17.200 Nicotine dependence, unspecified, uncomplicated; K64.9 Unspecified hemorrhoids; E89.0 Postprocedural hypothyroidism; Z92.3 Personal history of irradiation; Z85.850 Personal history of malignant neoplasm of thyroid; Z85.46 Personal history of malignant neoplasm of prostate; Z85.828 Personal history of other malignant neoplasm of skin; Z79.899 Other long term (current) drug therapy; Z82.3 Family history of stroke; Z82.49 Family history of ischemic heart disease and other diseases of the circulatory system; Z82.5 Family history of asthma and other chronic lower respiratory diseases; Z79.84 Long term (current) use of oral hypoglycemic drugs; Z71.3 Dietary counseling and surveillance; Z98.49 Cataract extraction status, unspecified eye; Z90.49 Acquired absence of other specified parts of digestive tract; R74.8 Abnormal levels of other serum enzymes; Z86.010 Personal history of colon polyps; Z87.19 Personal history of other diseases of the digestive system; Y84.2 Radiological procedure and radiotherapy as the cause of abnormal reaction of the patient, or of later complication, without mention of misadventure at the time of the procedure
CPT/HCPCS: 36415; 71010; 80048; 80053; 82272; 82607; 82747; 83735; 85025; 85027; 85610; 85730; 86850; 86900; 86901; 86920; 94640; 99285

== ENCOUNTER 2016-11-16 23:02 | Emergency (ER) | payer MEDICARE, OTHER ==
[2016-11-16 23:10] VITALS: RESP 18
--- NOTE | 2016-11-16 23:35 | ED ---
Fall HPI - General Chief Complaint: Fall Stated Complaint: ETOH Time Seen by Provider: 11/16/16 23:07 Source: patient, RN notes reviewed Mode of arrival: EMS - History of Present Illness Initial Comments: Patient is 81-year-old male presents to the emergency room for evaluation of fall. Patient states that he drank a half fifth of vodka and went to sit down, missed the seat and fell on his buttocks. Patient states he could not get up. Patient states he is diabetic neuropathy in his feet and has a hard time getting up when he falls. Patient states he called EMS to help him up and he was brought here. Patient denies head trauma. Patient denies loss consciousness. Patient denies neck pain. Patient denies nausea or vomiting. Patient denies dizziness. Patient denies any injuries. Patient states he is having slight pain in his tailbone. Patient denies numbness or tingling going down his legs. Patient denies saddle anesthesia. Patient denies urine or fecal incontinence. - Related Data Home Medications Medication Instructions Recorded Confirmed Metoprolol Tartrate [Lopressor] 50 mg PO BID 07/06/16 11/15/16 metFORMIN HCL ER [Glucophage Xr] 500 mg PO DAILY 07/06/16 11/15/16 Gabapentin [Neurontin] 100 mg PO TID 10/24/16 11/15/16 Levothyroxine Sodium [Synthroid] 137 mcg PO DAILY 10/24/16 11/15/16 Naphazoline HCl/Glycerin [Clear 1 drop BOTH EYES DAILY PRN 10/24/16 11/15/16 Eyes Max Redness Rlf Drp] Previous Rx's Medication Instructions Recorded Albuterol Inhaler [Ventolin Hfa 1 - 2 puff INHALATION Q6HR PRN #1 10/27/16 Inhaler] inhaler Budesonide-Formot 160-4.5 Mcg 2 puff INHALATION RT-BID #1 inhaler 10/27/16 [Symbicort 160-4.5 Mcg Inhaler] Allergies Allergy/AdvReac Type Severity Reaction Status Date / Time No Known Allergies Allergy Verified 10/24/16 14:37 Review of Systems ROS Statement: Those systems with pertinent positive or pertinent negative responses have been documented in the HPI. ROS Other: All systems not noted in ROS Statement are negative. Past Medical History Past Medical History: Cancer, Diabetes Mellitus, GERD/Reflux, Hypertension, Prostate Disorder, Thyroid Disorder Additional Past Medical History / Comment(s): thyroid cancer, skin cancer, ENLARGED PROSTATE,DIVERTICULAR DX,"HEART SKIPS A BEAT", prostate cancer, History of Any Multi-Drug Resistant Organisms: None Reported Past Surgical History: Bowel Resection Additional Past Surgical History / Comment(s): thyroidectomy, colonoscopy/ polypectomy, skin cancer removed, cataracts, bowel resection-d/t diverticulits Past Anesthesia/Blood Transfusion Reactions: No Reported Reaction Past Psychological History: No Psychological Hx Reported Additional Psychological History / Comment(s): pt lives in a house,alone,is independant,uses a cane. 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 Smoking Status: Current every day smoker Past Alcohol Use History: Abuse Additional Past Alcohol Use History / Comment(s): started smoking in his mid 30' s, 1ppd, 1/4 pint vodka daily. Past Drug Use History: None Reported - Past Family History Father Family Medical History: Asthma, CVA/TIA Additional Family Medical History / Comment(s): pacemaker, smoker Mother Family Medical History: Chest Pain / Angina Additional Family Medical History / Comment(s): smoker General Exam - General Exam Comments Initial Comments: Sitting in exam room, no acute distress. Limitations: altered mental status General appearance: alert Head exam: Present: atraumatic, normocephalic, normal inspection Eye exam: Present: normal appearance, PERRL, EOMI Pupils: Present: normal accommodation ENT exam: Present: normal exam Neck exam: Present: normal inspection, full ROM. Absent: tenderness, lymphadenopathy Respiratory exam: Present: normal lung sounds bilaterally. Absent: respiratory distress Cardiovascular Exam: Present: regular rate, normal rhythm, normal heart sounds GI/Abdominal exam: Present: soft, normal bowel sounds. Absent: distended, tenderness, guarding, rebound, rigid Extremities exam: Present: normal inspection Back exam: Present: normal inspection Neurological exam: Present: alert, oriented X3, CN II-XII intact, normal gait Psychiatric exam: Present: normal affect, normal mood Skin exam: Present: warm, dry, intact, normal color. Absent: rash Course Vital Signs 11/16/16 11/17/16 23:02 00:35 Temperature 96.7 F L 97.2 F L Pulse Rate 84 79 Respiratory 18 18 Rate Blood Pressure 94/54 105/58 O2 Sat by Pulse 98 100 Oximetry Medical Decision Making - Medical Decision Making Patient is a 81-year-old male presents to the emergency room for evaluation of fall. Patient was intoxicated. Patient denies any pain besides minor tailbone pain. X-ray showed no acute findings. Patient does have a ride home. Patient will be sent home and advised to follow-up with primary care provider. Advised patient to refrain from drinking alcohol. Return parameters discussed. Case discussed with Dr. Darden. - Radiology Data Radiology results: report reviewed, image reviewed Disposition Clinical Impression: Fall, Alcohol intoxication Disposition: HOME SELF-CARE Condition: Good Instructions: Fall Prevention for Older Adults (ED), Abuse of Alcohol (ED), Alcohol Intoxication (ED) Additional Instructions: Refrain from drinking alcohol. Please follow up with primary care provider in 1 -2 days. If any new symptom arises or symptoms worsen, return to ER as soon as possible. Referrals: Jesse Gee MD [Primary Care Provider] - 1-2 days Time of Disposition: 00:39
--- NOTE | 2016-11-17 00:31 | XR ---
EXAM: XR Sacrum and Coccyx, 2 or more Views CLINICAL HISTORY: Ground-level fall with sacral/coccygeal pain. TECHNIQUE: Frontal and lateral views of the sacrum and coccyx. COMPARISON: CT abdomen/pelvis 04/05/2016 FINDINGS: Limitations: Osseous demineralization limits bony detail. Sacrum/coccyx: No clear evidence for displaced sacral or coccygeal fracture allowing for limitations of demineralization. Sacrococcygeal alignment appears similar to prior CT abdomen/pelvis 04/05/2016. Vertebrae: Visualized lumbar vertebrae are unremarkable. Soft tissues: Status post ventral wall hernia repair with mesh and prostatectomy. IMPRESSION: 1. Osseous demineralization limits bony detail. 2. No clear evidence for displaced sacral or coccygeal fracture allowing for limitations of demineralization. Sacrococcygeal alignment is stable compared to prior CT. If there is strong clinical suspicion for acute pelvic fracture, CT bony pelvis could be performed for further evaluation.
[2016-11-17 00:38] VITALS: BP 105/58; PULSE 79; TEMP 97.2
== END 2016-11-17 01:18 | disposition home or self-care (01) ==
LOC: EC 23:02
DX: M53.3 Sacrococcygeal disorders, not elsewhere classified (principal); F10.129 Alcohol abuse with intoxication, unspecified; E11.9 Type 2 diabetes mellitus without complications; I10 Essential (primary) hypertension; E07.9 Disorder of thyroid, unspecified; F17.200 Nicotine dependence, unspecified, uncomplicated; Z85.46 Personal history of malignant neoplasm of prostate; Z85.828 Personal history of other malignant neoplasm of skin; Z85.850 Personal history of malignant neoplasm of thyroid; Z79.899 Other long term (current) drug therapy; W19.XXXA Unspecified fall, initial encounter
CPT/HCPCS: 72220; 82075; 99284

== ENCOUNTER 2016-11-17 06:51 | Day surgery (SDC) | payer MEDICARE, OTHER ==
[2016-11-15 15:41] VITALS: BMI 26.1
[~2016-11-17 06:51] MED LIST: LACTATED RINGERS 1,000 ML IV SCH
[2016-11-17 07:46] VITALS: RESP 16; TEMP 98.2
[2016-11-17] MEDS ORDERED: LIDOCAINE 1% 20 ML VIAL (10MG/ML) FOR IV START INTRADERMA ONE (07:51)
[2016-11-17] MEDS ORDERED: PROPOFOL 10 MG/ML 20 ML VIAL IV ONE (07:54)
[2016-11-17] MEDS ORDERED: PHENYLEPHRINE-0.9% NACL SYG 1 MG/10 ML SYRINGE ONE (07:54)
--- NOTE | 2016-11-17 08:17 | P.PCN ---
Date of Procedure: 11/17/16 Procedure(s) Performed: Patient is a 81 year-old white male, schedule for flexible sigmoidoscopy as part of evaluation of radiation proctitis. The patient has been having intermittent rectal bleeding for the last 1 month duration. He underwent a colonoscopy in July 2016 and he was noted to have severe radiation proctitis which was cauterized. He did well for a month and started having more bleeding. He is hence scheduled for a flexible sigmoidoscopy with argon plasma coagulation today. Preoperative diagnosis: Rectal bleeding/radiation proctitis Procedure performed: Flexible sigmoidoscopy with argon plasma coagulation Anesthesia MAC Description of procedure: The patient was brought into the endoscopy unit IV conscious sedation was administered by anesthesia and continuous monitoring. Initial digital rectal examination was normal. The Olympus CF 160 video colonoscope was then inserted into the rectum and gradually advanced to the rectum and distal sigmoid colon. Careful examination was performed as the scope was gradually being withdrawn. There was solid stool noted in the rectum as well as in the sigmoid colon and further advancement was not possible. Thorough irrigation was performed using irrigation system despite which because of the solid stool the mucosa could not be adequately visualized. However the distal rectum I was able to irrigate this area and there are multiple telangiectasias with oozing identified. Argon plasma coagulation was performed and all the visualized a less often and decreases with coagulated with good hemostasis. Because of the solid stool in most of the rectum some of the mucosal surface could not be visualized. Patient tolerated the procedure well. Impression: Radiation proctitis status post argon plasma coagulation as described above Recommendations: Findings of this examination were discussed with the patient as well as his family. He was advised to follow up in office in 3 months.
[2016-11-17 08:44] VITALS: BP 108/64; PULSE 103
== END 2016-11-17 09:12 | disposition home or self-care (01) ==
LOC: ORWHC2ENDO 06:51
PROVIDERS: ATTEND Internal Medicine Gastroenterology
DX: K62.7 Radiation proctitis (principal); I78.1 Nevus, non-neoplastic; J45.909 Unspecified asthma, uncomplicated; J44.9 Chronic obstructive pulmonary disease, unspecified; E11.9 Type 2 diabetes mellitus without complications; E07.9 Disorder of thyroid, unspecified; K21.9 Gastro-esophageal reflux disease without esophagitis; Z90.49 Acquired absence of other specified parts of digestive tract; Z79.84 Long term (current) use of oral hypoglycemic drugs; Z79.899 Other long term (current) drug therapy
CPT/HCPCS: 45334; J2370; J2704; 45382

== ENCOUNTER 2017-01-08 13:29 | Inpatient (IN) | payer MEDICARE, OTHER ==
[2017-01-08] MEDS ORDERED: MORPHINE SULFATE 4 MG/ML SYRINGE IV STA (14:15)
[2017-01-08] MEDS ORDERED: ASPIRIN 81 MG CHEW PO STA (14:15)
[2017-01-08] MEDS ORDERED: SODIUM CHLORIDE 0.9% 1,000 ML IV STA (14:15)
--- NOTE | 2017-01-08 14:18 | ED ---
General Adult HPI - General Chief complaint: Chest Pain Stated complaint: Back pain Time Seen by Provider: 01/08/17 13:32 Source: patient, EMS, RN notes reviewed Mode of arrival: EMS Limitations: no limitations - History of Present Illness Initial comments: Patient is a pleasant 82-year-old male presenting to the emergency department complaining of back pain. Onset of symptoms was prior to arrival. Patient was sitting down watching TV. Patient had development of thoracic back pain with radiation to the neck and shoulders. Patient was concerned he might be having a heart attack. Discomfort was severe and he stooled himself. Patient states discomfort is between moderate and severe at this time however is improved from onset. Patient denies any specific chest discomfort. No history of similar symptoms previously. Patient states he may be somewhat short of breath. No nausea vomiting or diaphoresis. - Related Data Home Medications Medication Instructions Recorded Confirmed metFORMIN HCL ER [Glucophage Xr] 500 mg PO DAILY 07/06/16 01/08/17 Levothyroxine Sodium [Synthroid] 137 mcg PO DAILY 10/24/16 01/08/17 Naphazoline HCl/Glycerin [Clear 1 drop BOTH EYES DAILY PRN 10/24/16 01/08/17 Eyes Max Redness Rlf Drp] Albuterol Inhaler [Ventolin Hfa 1 - 2 puff INHALATION RT-QID PRN 01/08/17 Inhaler] Furosemide [Lasix] 20 mg PO DAILY 01/08/17 01/08/17 Previous Rx's Medication Instructions Recorded Budesonide-Formot 160-4.5 Mcg 2 puff INHALATION RT-BID #1 inhaler 10/27/16 [Symbicort 160-4.5 Mcg Inhaler] Allergies Allergy/AdvReac Type Severity Reaction Status Date / Time No Known Allergies Allergy Verified 11/17/16 07:49 Review of Systems ROS Statement: Those systems with pertinent positive or pertinent negative responses have been documented in the HPI. ROS Other: All systems not noted in ROS Statement are negative. Constitutional: Denies: fever Eyes: Denies: eye pain ENT: Denies: ear pain Respiratory: Reports: dyspnea. Denies: cough Cardiovascular: Reports: chest pain Endocrine: Denies: fatigue Gastrointestinal: Denies: vomiting Genitourinary: Denies: dysuria Musculoskeletal: Reports: back pain Skin: Denies: rash Neurological: Denies: weakness Past Medical History Past Medical History: Cancer, Diabetes Mellitus, GERD/Reflux, Hypertension, Prostate Disorder, Thyroid Disorder Additional Past Medical History / Comment(s): thyroid cancer, skin cancer, ENLARGED PROSTATE,DIVERTICULAR DX,"HEART SKIPS A BEAT", prostate cancer, History of Any Multi-Drug Resistant Organisms: None Reported Past Surgical History: Bowel Resection Additional Past Surgical History / Comment(s): thyroidectomy, colonoscopy/ polypectomy, skin cancer removed, cataracts, bowel resection-d/t diverticulits Past Anesthesia/Blood Transfusion Reactions: No Reported Reaction Past Psychological History: No Psychological Hx Reported Smoking Status: Current every day smoker Past Alcohol Use History: Abuse Past Drug Use History: None Reported - Past Family History Father Family Medical History: Asthma, CVA/TIA Additional Family Medical History / Comment(s): pacemaker, smoker Mother Family Medical History: Chest Pain / Angina Additional Family Medical History / Comment(s): smoker General Exam Limitations: no limitations General appearance: alert, in no apparent distress, other (Patient was covered with stool on arrival) Head exam: Present: atraumatic Eye exam: Present: normal appearance, PERRL ENT exam: Present: normal oropharynx Neck exam: Present: normal inspection Respiratory exam: Present: normal lung sounds bilaterally. Absent: chest wall tenderness Cardiovascular Exam: Present: tachycardia, irregular rhythm Expanded Peripheral pulses: 2+: Radial (R), Radial (L), Dorsalis Pedis (R), Dorsalis Pedis (L) GI/Abdominal exam: Present: soft. Absent: tenderness Extremities exam: Present: pedal edema. Absent: tenderness, calf tenderness Back exam: Present: normal inspection. Absent: tenderness, vertebral tenderness Neurological exam: Present: alert Psychiatric exam: Present: normal affect, normal mood Skin exam: Present: normal color Course Vital Signs 01/08/17 01/08/17 13:43 14:49 Temperature 98.1 F Pulse Rate 118 H 115 H Respiratory 20 Rate Blood Pressure 119/73 112/58 O2 Sat by Pulse 99 97 Oximetry EKG Findings - EKG Comments: EKG Findings:: A. fib with RVR, rate 126. QRS 82. QT 342. QTC 495. Normal axis. Low QRS voltage. Nonspecific ST-T. Medical Decision Making - Medical Decision Making Patient reevaluated and updated. Patient symptom-free following second dose of morphine. Case discussed in detail with Dr. mayer, who will admit for Dr. Gee. Cardiology to be consulted. Heart rate has been elevated. Patient remains in atrial fibrillation which he does have a history of. Cardizem will be started. - Lab Data Result diagrams: 01/08/17 14:11 01/08/17 14:11 Lab Results 01/08/17 01/08/17 01/08/17 Range/Units 14:11 14:11 14:11 WBC 5.4 (3.8-10.6) k/uL RBC 2.87 L (4.30-5.90) m/uL Hgb 10.7 L (13.0-17.5) gm/dL Hct 32.4 L (39.0-53.0) % MCV 112.7 H (80.0-100.0) fL MCH 37.3 H (25.0-35.0) pg MCHC 33.1 (31.0-37.0) g/dL RDW 14.6 (11.5-15.5) % Plt Count 326 (150-450) k/uL Neutrophils % 83 % Lymphocytes % 10 % Monocytes % 4 % Eosinophils % 0 % Basophils % 1 % Neutrophils # 4.5 (1.3-7.7) k/uL Lymphocytes # 0.6 L (1.0-4.8) k/uL Monocytes # 0.2 (0-1.0) k/uL Eosinophils # 0.0 (0-0.7) k/uL Basophils # 0.0 (0-0.2) k/uL Macrocytosis Marked PT (9.0-12.0) sec INR (<1.1) APTT (22.0-30.0) sec D-Dimer (<0.60) mg/L FEU Sodium 141 (137-145) mmol/L Potassium 3.4 L (3.5-5.1) mmol/L Chloride 110 H (98-107) mmol/L Carbon Dioxide 18 L (22-30) mmol/L Anion Gap 13 mmol/L BUN 8 L (9-20) mg/dL Creatinine 0.60 L (0.66-1.25) mg/dL Est GFR (MDRD) Af Amer >60 (>60 ml/min/1.73 sqM) Est GFR (MDRD) Non-Af >60 (>60 ml/min/1.73 sqM) Glucose 128 H (74-99) mg/dL Calcium 8.5 (8.4-10.2) mg/dL Magnesium 1.5 L (1.6-2.3) mg/dL Total Bilirubin 0.5 (0.2-1.3) mg/dL AST 44 (17-59) U/L ALT 35 (21-72) U/L Alkaline Phosphatase 104 (38-126) U/L Total Creatine Kinase 39 L (55-170) U/L CK-MB (CK-2) 1.1 (0.0-2.4) ng/mL CK-MB (CK-2) Rel Index 2.8 Troponin I <0.012 (0.000-0.034) ng/mL Total Protein 5.8 L (6.3-8.2) g/dL Albumin 2.8 L (3.5-5.0) g/dL 01/08/17 Range/Units 14:11 WBC (3.8-10.6) k/uL RBC (4.30-5.90) m/uL Hgb (13.0-17.5) gm/dL Hct (39.0-53.0) % MCV (80.0-100.0) fL MCH (25.0-35.0) pg MCHC (31.0-37.0) g/dL RDW (11.5-15.5) % Plt Count (150-450) k/uL Neutrophils % % Lymphocytes % % Monocytes % % Eosinophils % % Basophils % % Neutrophils # (1.3-7.7) k/uL Lymphocytes # (1.0-4.8) k/uL Monocytes # (0-1.0) k/uL Eosinophils # (0-0.7) k/uL Basophils # (0-0.2) k/uL Macrocytosis PT 10.8 (9.0-12.0) sec INR 1.1 (<1.1) APTT 24.1 (22.0-30.0) sec D-Dimer 1.51 H (<0.60) mg/L FEU Sodium (137-145) mmol/L Potassium (3.5-5.1) mmol/L Chloride (98-107) mmol/L Carbon Dioxide (22-30) mmol/L Anion Gap mmol/L BUN (9-20) mg/dL Creatinine (0.66-1.25) mg/dL Est GFR (MDRD) Af Amer (>60 ml/min/1.73 sqM) Est GFR (MDRD) Non-Af (>60 ml/min/1.73 sqM) Glucose (74-99) mg/dL Calcium (8.4-10.2) mg/dL Magnesium (1.6-2.3) mg/dL Total Bilirubin (0.2-1.3) mg/dL AST (17-59) U/L ALT (21-72) U/L Alkaline Phosphatase (38-126) U/L Total Creatine Kinase (55-170) U/L CK-MB (CK-2) (0.0-2.4) ng/mL CK-MB (CK-2) Rel Index Troponin I (0.000-0.034) ng/mL Total Protein (6.3-8.2) g/dL Albumin (3.5-5.0) g/dL - Radiology Data Radiology results: image reviewed (Chest x-ray reveals no acute process. Computed tomography scan and she'll shows atherosclerotic vascular disease. No evidence of aortic dissection or aneurysm. Gallbladder enlarged.) Critical Care Time Critical Care Time: Yes Total Critical Care Time: 32 Disposition Clinical Impression: Atrial fibrillation with RVR, Thoracic back pain Disposition: ADMITTED IP TO THIS HOSP Referrals: Jesse Gee MD [Primary Care Provider] - 1-2 days Decision Time: 16:59
--- NOTE | 2017-01-08 14:56 | XR ---
EXAMINATION TYPE: XR chest 1V portable DATE OF EXAM: 01/08/2017 COMPARISON: 10/25/2016 HISTORY: Chest pain TECHNIQUE: Single frontal view of the chest is obtained. FINDINGS: There is no heart failure nor confluent pneumonic infiltrate. Thoracic aorta is atheromato us. There is no pleural effusion. There are chest leads. IMPRESSION: No active cardiopulmonary disease. No change.
[2017-01-08 14:57] LABS: Basophils % (A) 1 %; CH 37.9; CHCM 33.7; Eosinophils % (A) 0 %; HCT 32.4 % (39.0-53.0); HGB 10.7 gm/dL (13.0-17.5); Luc # (Auto) 0.09; Luc % (Auto) 2; Lymphocytes # (A) 0.6 k/uL (1.0-4.8); Lymphocytes % (A) 10 %; MCH 37.3 pg (25.0-35.0); MCHC 33.1 g/dL (31.0-37.0); MCV 112.7 fL (80.0-100.0); Macrocytosis Marked; Mean Platelet Volume 7.7; Monocytes # (A) 0.2 k/uL (0-1.0); Monocytes % (A) 4 %; Neutrophils # (A) 4.5 k/uL (1.3-7.7); Neutrophils % (A) 83 %; RBC 2.87 m/uL (4.30-5.90); RDW 14.6 % (11.5-15.5); WBC 5.4 k/uL (3.8-10.6); WBC (Perox) 5.41
[2017-01-08 15:04] LABS: INR 1.1 (<1.1); Partial Thromboplastin Time 24.1 sec (22.0-30.0); Prothrombin Time 10.8 sec (9.0-12.0)
[2017-01-08 15:06] LABS: ALT 35 U/L (21-72); AST 44 U/L (17-59); Alkaline Phosphatase 104 U/L (38-126); Anion Gap 13 mmol/L; Blood Urea Nitrogen 8 mg/dL (9-20); Calcium 8.5 mg/dL (8.4-10.2); Carbon Dioxide 18 mmol/L (22-30); Chloride 110 mmol/L (98-107); Glucose 128 mg/dL (74-99); Magnesium 1.5 mg/dL (1.6-2.3); Non-African American GFR(MDRD) >60 (>60 ml/min/1.73 sqM); Potassium 3.4 mmol/L (3.5-5.1); Sodium 141 mmol/L (137-145); Total Bilirubin 0.5 mg/dL (0.2-1.3); Total Protein 5.8 g/dL (6.3-8.2)
[2017-01-08 15:09] LABS: Creatine Kinase 39 U/L (55-170)
[2017-01-08 15:22] LABS: Creatine Kinase MB 1.1 ng/mL (0.0-2.4); Troponin I <0.012 ng/mL (0.000-0.034)
[2017-01-08] MEDS ORDERED: RX INFO: IV CONTRAST WAS GIVEN 1 EACH MISC MISCELLANE PRN (15:38)
[2017-01-08] MEDS ORDERED: MORPHINE SULFATE 4 MG/ML SYRINGE IVP STA (16:09)
--- NOTE | 2017-01-08 16:54 | CT ---
EXAMINATION TYPE: CT angio thoracic/abd aorta DATE OF EXAM: 01/08/2017 COMPARISON: NONE HISTORY: patient complains of upper back pain and neck pain. CT DLP: 1378 mGycm. Automated Exposure Control for Dose Reduction was Utilized. CONTRAST: CT scan of the thorax, abdomen and pelvis is performed without and with IV Contrast, patient injected with 100 mL of Omnipaque 350. There are 3-D post processed images. FINDINGS: There is a right pleural effusion with right basilar infiltrate and atelectasis. There is a small lef t pleural effusion with left basilar mild infiltrate and atelectasis. Thoracic aorta is atheromatous. There is coronary artery calcification. There is no evidence of thora cic aortic aneurysm or dissection. Abdominal aorta is atheromatous. There is wide patency of the aort ic bifurcation. There is patency of the celiac artery and the superior mesenteric artery. There is patency of the nya al arteries. Gallbladder is somewhat dilated and measures 4.7 cm. Bile ducts are not dilated. There a re small calcified splenic granulomata. There is no sign of pancreatic mass. There is a 3 cm cortical cyst on the posterior right kidney. There is no hydronephrosis. There are densely calcified subcarin al lymph nodes. 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 IMPRESSION: Atherosclerotic vascular disease. Old healed granulomatous disease. Bilateral lower lobe pulmonary infiltrates and pleural fluid that is larger on the right side. This c ould relate to congestive heart failure. No evidence of aortic aneurysm or dissection. No aneurysm of the common iliac arteries. No evidence of pulmonary embolism. Mildly enlarged gallbladder could relate to cholecystitis or gallbladder dysfunction. Gallbladder is increased compared to old CT scan of 04/05/2016.
[2017-01-08] MEDS ORDERED: NITROGLYCERIN SL TABS 0.4 MG TAB SUBLINGUAL PRN (17:00)
[2017-01-08] MEDS ORDERED: MORPHINE SULFATE 4 MG/ML SYRINGE IV PRN (17:00)
[2017-01-08] MEDS ORDERED: HEPARIN SODIUM,PORCINE 5,000 UNIT/ML 1 ML VIAL IV PRN (17:00)
[2017-01-08] MEDS ORDERED: HEPARIN SODIUM,PORCINE 5,000 UNIT/ML 1 ML VIAL IV ONE (17:00)
[2017-01-08] MEDS ORDERED: DILTIAZEM 5 MG/ML 5 ML VIAL IVP STA (17:02)
[2017-01-08] MEDS: DILTIAZEM 125 MG in SODIUM CHLORIDE 0.9% 100 ML IV SCH (17:35)
[2017-01-08] MEDS: HEPARIN SODIUM,PORCINE/D5W PMX 25,000 UNIT in DEXTROSE/WATER 1 500ML.BAG IV SCH (17:36)
--- NOTE | 2017-01-08 17:40 | US ---
EXAMINATION TYPE: US gallbladder DATE OF EXAM: 01/08/2017 COMPARISON: CT today CLINICAL HISTORY: Pain. EC patient with back pain; patient stated has been without food x 2 days. EXAM MEASUREMENTS: Liver Length: 15.6 cm Gallbladder Wall: 0.2 cm CBD: 0.7 cm Right Kidney: 11.1 x 5.8 x 4.8 cm Pancreas: prominent pancreatic duct = 0.4cm (normal < or = 0.2cm) Liver: fatty Gallbladder: wnl Evidence for sonographic Simpson's sign: No CBD: wnl and size is appropriate for 8th decade Right Kidney: multiple hyperechoic foci with largest at cortex at mid lower pole = 0.4 x 0.7 x 0.3cm IMPRESSION: There is a mildly dilated gallbladder but no gallstones. Common bile duct is 7 mm which i s top normal. There is probably a 3 mm nonobstructing calculus in the lower pole right kidney. No foc al liver defect. No evidence of a pancreatic mass.
[2017-01-08] MEDS: NITROGLYCERIN OINT 1 INCH/GM PACKET TOPICAL SCH (19:14)
[2017-01-08] MEDS ORDERED: MORPHINE SULFATE 4 MG/ML SYRINGE IVP PRN (20:13)
[2017-01-08 20:47] LABS: Glucose,Whole Blood 176 mg/dL (75-99)
[2017-01-08] MEDS ORDERED: IPRATROPIUM-ALBUTEROL 3 ML NEB INHALATION PRN (20:58)
[2017-01-08] MEDS ORDERED: ARTIFICIAL TEARS-HYPROMELLOSE DROPS 15 ML BTL BOTH EYES PRN (20:59)
[2017-01-08] MEDS ORDERED: Potassium Replacement Protocol 1 EACH MISC MISCELLANE PRN (21:00)
[2017-01-08] MEDS ORDERED: Magnesium Replacement Protocol 1 EACH MISC MISCELLANE PRN (21:01)
[2017-01-08] MEDS: IPRATROPIUM-ALBUTEROL 3 ML NEB INHALATION SCH (21:12)
[2017-01-08 21:15] LABS: Creatine Kinase 33 U/L (55-170)
[2017-01-08 21:28] LABS: Troponin I <0.012 ng/mL (0.000-0.034)
[2017-01-08 21:30] LABS: Creatine Kinase MB 0.8 ng/mL (0.0-2.4)
[2017-01-08] MEDS: MAGNESIUM SULFATE-D5W PMX 1 GM in DEXTROSE/WATER 1 100ML.BAG IVPB SCH ×2 (22:01→23:06)
[2017-01-08] MEDS: INSULIN LISPRO (humaLOG) 300 UNIT/3 ML VIAL SQ SCH (22:13)
[2017-01-09] MEDS: IPRATROPIUM-ALBUTEROL 3 ML NEB INHALATION SCH ×8 (00:01→19:20)
[2017-01-09] MEDS: POTASSIUM CHLORIDE 10 MEQ, LIDOCAINE 2% INJ 10 MG in SODIUM CHLORIDE 0.9% 100 ML IV SCH ×2 (00:27→02:00)
[2017-01-09] MEDS: NITROGLYCERIN OINT 1 INCH/GM PACKET TOPICAL SCH ×2 (00:35→06:01)
[2017-01-09 02:52] LABS: Creatine Kinase 27 U/L (55-170)
[2017-01-09 03:03] LABS: Creatine Kinase MB 0.5 ng/mL (0.0-2.4); Troponin I <0.012 ng/mL (0.000-0.034)
[2017-01-09] MEDS: ACETAMINOPHEN TAB 500 MG TAB PO PRN ×2 (04:22→19:45)
[2017-01-09 05:48] LABS: Glucose,Whole Blood 244 mg/dL (75-99)
[2017-01-09] MEDS: metFORMIN 500 MG TAB PO SCH ×2 (06:39→17:49)
[2017-01-09] MEDS: LEVOTHYROXINE 137 MCG TAB PO SCH (06:40)
[2017-01-09] MEDS: INSULIN LISPRO (humaLOG) 300 UNIT/3 ML VIAL SQ SCH ×4 (06:40→21:32)
[2017-01-09 07:13] LABS: Anion Gap 10 mmol/L; Blood Urea Nitrogen 13 mg/dL (9-20); Carbon Dioxide 19 mmol/L (22-30); Chloride 109 mmol/L (98-107); Cholesterol 112 mg/dL (<200); Glucose 220 mg/dL (74-99); HDL Cholesterol 50 mg/dL (40-60); Magnesium 1.9 mg/dL (1.6-2.3); Non-African American GFR(MDRD) >60 (>60 ml/min/1.73 sqM); Potassium 3.7 mmol/L (3.5-5.1); Sodium 138 mmol/L (137-145); Triglycerides 89 mg/dL (<150)
[2017-01-09 07:31] LABS: Basophils % (A) 0 %; CH 37.6; CHCM 33.3; Eosinophils % (A) 0 %; HCT 28.1 % (39.0-53.0); HDW 2.61; HGB 9.3 gm/dL (13.0-17.5); Luc # (Auto) 0.08; Luc % (Auto) 2; Lymphocytes # (A) 0.5 k/uL (1.0-4.8); Lymphocytes % (A) 10 %; MCH 37.6 pg (25.0-35.0); MCHC 33.2 g/dL (31.0-37.0); MCV 113.4 fL (80.0-100.0); Macrocytosis Marked; Mean Platelet Volume 7.9; Monocytes # (A) 0.3 k/uL (0-1.0); Monocytes % (A) 5 %; Neutrophils # (A) 4.2 k/uL (1.3-7.7); Neutrophils % (A) 82 %; RBC 2.48 m/uL (4.30-5.90); RDW 14.5 % (11.5-15.5); WBC 5.1 k/uL (3.8-10.6); WBC (Perox) 5.33
[2017-01-09 08:57] LABS: Manual Review Performed
[2017-01-09] MEDS ORDERED: ASPIRIN 325 MG TAB PO SCH (09:00)
[2017-01-09] MEDS ORDERED: FUROSEMIDE 20 MG TAB PO SCH (09:00)
[2017-01-09 11:33] LABS: Glucose,Whole Blood 326 mg/dL (75-99)
[2017-01-09] MEDS: METOPROLOL TARTRATE 25 MG TAB PO SCH ×2 (11:58→19:45)
[2017-01-09] MEDS: DIGOXIN 125 MCG TAB PO SCH (11:58)
[2017-01-09] MEDS: FUROSEMIDE 10 MG/ML 2 ML VIAL IV SCH ×2 (11:58→19:46)
--- NOTE | 2017-01-09 15:29 | XR ---
EXAMINATION TYPE: XR thoracic spine 2V DATE OF EXAM: 01/09/2017 COMPARISON: NONE HISTORY: Upper back pain TECHNIQUE: 3 view thoracic spine. FINDINGS: There is a scoliosis present with convexity to the right centered in the midthoracic spine. Disc heights appear preserved. Vertebral body heights are preserved. Pedicles are intact. IMPRESSION: 1. Scoliosis
--- NOTE | 2017-01-09 16:05 | CONS ---
DATE OF CONSULTATION: Mr. Chakraborty is an 82-year-old male with a history of diabetes who presented with symptoms of chest discomfort between his back that was quite severe, came into the emergency room and was noted to be in atrial fibrillation. Patient has a known history of recurrent GI bleeding, has a history of diabetes. He has been followed by Dr. Aguillon in the past. He denies any history of atrial fibrillation, although he said he has some arrhythmia in the past. He is quite limited in physical activity. He has chronic peripheral edema, worse now. He has dyspnea on exertion. He did not feel the arrhythmia. He has no dizziness or syncope. He has no clear PND, orthopnea. He has no chest discomfort. His discomfort was predominantly in the back. His coronary risk factors are remarkable for smoking, diabetes. His lipid profile is not available to me. No history of hypertension according to him. SOCIAL HISTORY: He smokes on a daily basis and drinks alcohol on a daily basis. Medications at home include: 1. Metformin 500 mg daily. 2. Synthroid. 3. Lasix 20 mg daily. 4. Symbicort. 5. Ventolin. REVIEW OF SYSTEMS: RESPIRATORY SYSTEM: Has dyspnea on exertion, history of chronic tobacco use. GI system: Had a history of recurrent GI bleeding related to radiation proctitis. system: History of prostate cancer but no recent GI bleeding. system: Nervous system: No history of stroke or seizure. PHYSICAL EXAMINATION: He is an 82-year-old male, alert, oriented, in no apparent distress. Blood pressure running in the 80s to 90s with the heart rate in the 40s. HEAD: Normocephalic. EYES: Sclerae anicteric. NECK: Good upstroke. No bruits. No jugular venous distention. LUNGS: With decreased air exchange. No wheezes. HEART: Irregularly irregular. S1, S2, no S3 tachycardic. No rub with a systolic murmur. ABDOMEN: Soft, nontender, positive bowel sounds. No organomegaly. EXTREMITIES: +2 edema bilaterally. Lab data revealed a troponin less than 0.012. BUN and creatinine of 8 and 0.6. Potassium 3.4. Hemoglobin of 10.7. D-dimer of 1.51. His albumin is 2.8. Total protein of 5.8. His EKG reveals atrial fibrillation with rapid ventricular response and nonspecific ST-T wave changes. His chest x-ray shows no acute infiltrate. His thoracic aortic CT scan showed no evidence of aneurysm and no evidence of pulmonary embolism. There is dilatation of the gallbladder. IMPRESSION: 1. Atrial fibrillation. The patient is not aware of the arrhythmia. He is a high BRIAN VASC-2 score but unfortunately has recurrent gastrointestinal bleeding. 2. Back pain. No clear evidence to suggest acute coronary syndrome. 3. Chronic alcoholism. 4. History of gastrointestinal bleeding. 5. Diabetes mellitus. 6. Peripheral edema with elevation NT-proBNP. RECOMMENDATION: I will switch him to IV Lasix. I will add beta cole to his regimen and digoxin. Will obtain echocardiogram with Doppler. We will check his thyroid function tests and depending on his progress, further recommendation will be made. Unfortunately, he is not a good candidate for anticoagulation at this point in view of his recurrent GI bleeding and his alcohol intake. Thank you for this consult. We will follow with you.
[2017-01-09 17:01] LABS: Glucose,Whole Blood 163 mg/dL (75-99)
--- NOTE | 2017-01-09 17:30 | HP ---
DATE OF ADMISSION: 01/08/2017 PRESENTING COMPLAINT: Back pain. HISTORY OF PRESENTING COMPLAINT: This 82-year-old patient of Dr. Gee whose chronic stable medical conditions include diabetes, GERD, hypertension, hypothyroid, also the patient is sitting up on a chair. He developed sudden back pain across the upper part of the back, going across. No shortness of breath. No dizziness. No radiation. The patient went and laid down, still the pain was present. No precordial pain; hence, patient came in. Patient normally uses a cane and a walker to get about the house. There was no short of breath. No perspiration. REVIEW OF SYSTEMS: CONSTITUTIONAL: Tired. HEENT: Decreased hearing. RESPIRATORY: Baseline some shortness of breath. CARDIOVASCULAR: No precordial pain. GASTROINTESTINAL: Heartburn. GENITOURINARY: None. MUSCULOSKELETAL: Pain in the joints. Dermatological: None. LYMPHATICS: None. PSYCHIATRY: None. NEUROLOGICAL: None. PAST HISTORY: Diabetes, GERD, hypertension, hypothyroid, ( ) thyroid cancer with radiation proctitis. PAST SURGICAL HISTORY: Bowel resection, thyroidectomy, colonoscopy, skin cancer, cataracts, bowel resection due to diverticulitis. SOCIAL HISTORY: Has been smoking a pack a day for close to 60-70 years, drinks quite a bit of vodka daily. FAMILY HISTORY: Asthma, stroke, pacemaker. HOME MEDICATIONS: 1. Metformin. 2. Glucophage XL 500 mg daily. 3. Clear eyes one drop to both eyes daily p.r.n. 4. Synthroid 137 mcg a day. 5. Lasix 20 mg p.o. daily. 6. Symbicort 160/4 .5, 2 puffs b.i.d. 7. Ventolin 1 to 2 puffs q.i.d. p.r.n. ALLERGIES: ASPIRIN. On examination, temperature 98.1, pulse 120, respiration 20, blood pressure was 109/73, pulse ox 99% on room air. GENERAL APPEARANCE: Well built, sitting on bed, tired -appearing. EYES: Pupils equal. Conjunctivae normal. HEENT: External appearance of nose and ears normal. Oral cavity normal. Decreased hearing. NECK: JVD not raised. Mass not palpable. RESPIRATORY: Effort normal. LUNGS: Decreased breath sounds. CARDIOVASCULAR: First and second sounds. No edema. ABDOMEN: Soft, nontender. Liver and spleen not palpable. LYMPHATIC: No lymph node palpable in neck or axillae. PSYCHIATRY: Alert and oriented x3. Mood and affect slightly slow. NEUROLOGICAL: Pupils equal. Cranial nerves grossly intact. Power and sensation grossly intact. MUSCULOSKELETAL: Evidence of osteoarthritis of multiple joints. White count 5.4, hemoglobin 10.7. Potassium 3.4. BUN 8, creatinine 0.60, albumin 2.8. EKG atrial fibrillation with rapid ventricular response. Chest x-ray nil acute. ASSESSMENT: 1. Acute upper back pain in the thoracic region, likely, osteoarthritis of the thoracic spine with some element of radiculopathy. 2. Incidental finding of atrial fibrillation with rapid ventricular rate, uncontrolled, present on admission. 3. Diabetes mellitus type 2, on oral hypoglycemic. 4. Gastroesophageal reflux disease. 5. Essential hypertension. 6. Hypothyroidism. Need to rule out over replacement. 7. Gait dysfunction uses a cane and a walker. 8. Chronic radiation proctitis. 9. Chronic obstructive pulmonary disease in a current smoker. 10. Chronic nicotine dependence. Patient is a smoker. PLAN: The patient is started on a Cardizem drip. IV heparin drip. Have to be careful about that, given that he sometimes may have lower gastrointestinal bleed. Home medications will be resumed. Patient will be given nicotine patch. I do not think he cares much about the same. We will send off patient free FT4 and a TSH. 2-D echocardiogram will be done. Patient macrocytosis is from his alcoholism. He had been drinking allegedly for the last over 50 years, cardiology was consulted. Care was discussed with the patient. We will give him a breathing treatment in the form of DuoNeb and replace magnesium. Copy to Dr. Gee.
[2017-01-09] MEDS: NICOTINE 21MG/24HR PATCH TRANSDERM SCH (17:50)
[2017-01-09] MEDS: DILTIAZEM 125 MG in SODIUM CHLORIDE 0.9% 100 ML IV SCH (18:01)
[2017-01-09] MEDS: HEPARIN SODIUM,PORCINE/D5W PMX 25,000 UNIT in DEXTROSE/WATER 1 500ML.BAG IV SCH (18:01)
[2017-01-09 20:55] LABS: Glucose,Whole Blood 238 mg/dL (75-99)
[2017-01-09] MEDS: MAGNESIUM SULFATE-D5W PMX 1 GM in DEXTROSE/WATER 1 100ML.BAG IVPB SCH ×2 (21:32→22:49)
[2017-01-10] MEDS: POTASSIUM CHLORIDE 10 MEQ, LIDOCAINE 2% INJ 10 MG in SODIUM CHLORIDE 0.9% 100 ML IV SCH ×2 (00:12→01:32)
[2017-01-10 06:08] LABS: Glucose,Whole Blood 120 mg/dL (75-99)
[2017-01-10] MEDS: INSULIN LISPRO (humaLOG) 300 UNIT/3 ML VIAL SQ SCH ×4 (06:40→21:16)
[2017-01-10] MEDS: LEVOTHYROXINE 137 MCG TAB PO SCH (06:41)
[2017-01-10] MEDS: metFORMIN 500 MG TAB PO SCH ×2 (06:41→17:37)
[2017-01-10 06:56] LABS: Basophils % (A) 0 %; CH 37.6; CHCM 32.5; Eosinophils % (A) 1 %; HGB 9.1 gm/dL (13.0-17.5); Luc # (Auto) 0.08; Luc % (Auto) 2; Lymphocytes # (A) 0.5 k/uL (1.0-4.8); Lymphocytes % (A) 10 %; MCH 36.5 pg (25.0-35.0); MCHC 31.4 g/dL (31.0-37.0); MCV 116.2 fL (80.0-100.0); Macrocytosis Marked; Mean Platelet Volume 8.3; Monocytes # (A) 0.2 k/uL (0-1.0); Monocytes % (A) 4 %; Neutrophils # (A) 3.6 k/uL (1.3-7.7); Neutrophils % (A) 83 %; WBC 4.4 k/uL (3.8-10.6); WBC (Perox) 4.62
[2017-01-10 07:01] LABS: Anion Gap 9 mmol/L; Blood Urea Nitrogen 15 mg/dL (9-20); Carbon Dioxide 22 mmol/L (22-30); Chloride 106 mmol/L (98-107); Glucose 105 mg/dL (74-99); Magnesium 1.9 mg/dL (1.6-2.3); Non-African American GFR(MDRD) >60 (>60 ml/min/1.73 sqM); Potassium 3.4 mmol/L (3.5-5.1); Sodium 137 mmol/L (137-145)
[2017-01-10 08:25] LABS: Manual Review Performed
[2017-01-10] MEDS: NICOTINE 21MG/24HR PATCH TRANSDERM SCH (08:30)
[2017-01-10] MEDS: DIGOXIN 125 MCG TAB PO SCH (08:33)
[2017-01-10] MEDS: METOPROLOL TARTRATE 25 MG TAB PO SCH ×3 (08:33→21:15)
[2017-01-10] MEDS: FUROSEMIDE 10 MG/ML 2 ML VIAL IV SCH (08:33)
[2017-01-10] MEDS: IPRATROPIUM-ALBUTEROL 3 ML NEB INHALATION SCH ×4 (10:30→20:01)
--- NOTE | 2017-01-10 10:58 | ECHOF ---
Referral Reason:afib MEASUREMENTS -------- HEIGHT: 172.7 cm WEIGHT: 77.6 kg BP: 100/59 RVIDd: 3.4 cm (< 3.3) IVSd: 0.9 cm (0.6 - 1.1) LVIDd: 4.3 cm (3.9 - 5.3) LVPWd: 1.1 cm (0.6 - 1.1) IVSs: 1.4 cm LVIDs: 2.0 cm LVPWs: 2.0 cm LAESV Index (A-L): 35.54 ml/m Ao Diam: 3.7 cm (2.0 - 3.7) AV Cusp: 1.4 cm (1.5 - 2.6) LA Diam: 3.7 cm (2.7 - 3.8) AV maxP.87 mmHg AV meanP.24 mmHg RAP: 5.00 mmHg RVSP: 43.33 mmHg FINDINGS -------- Atrial fibrillation. This was a technically good study. Left ventricular wall thickness is normal. Overall left ventricular systolic function is normal with, an EF between 55 - 60 %. The right ventricle is mildly enlarged. LA is moderately dilated 34-39 ml/m2 RA appears enlarged. Aortic valve is trileaflet and is moderately thickened. There is mild aortic stenosis present. Peak/mean gradient across the Aortic Valve is 17.87mmHg / 10.24mmHg. The mitral valve leaflets are mildly thickened. Moderate mitral regurgitation is present. Moderate tricuspid regurgitation present. There is mild pulmonary hypertension. The right ventricular systolic pressure, as measured by Doppler, is 43.33mmHg. Pulmonic valve appears structurally normal. The aortic root size is normal. The pericardium is normal. CONCLUSIONS -------- 1. Atrial fibrillation. 2. Peak/mean gradient across the Aortic Valve is 17.87mmHg / 10.24mmHg. 3. The mitral valve leaflets are mildly thickened. 4. Moderate mitral regurgitation is present. 5. Moderate tricuspid regurgitation present. 6. There is mild pulmonary hypertension. 7. The right ventricular systolic pressure, as measured by Doppler, is 43.33mmHg. 8. Pulmonic valve appears structurally normal. 9. The aortic root size is normal. 10. The pericardium is normal. 11. This was a technically good study. 12. Left ventricular wall thickness is normal. 13. Overall left ventricular systolic function is normal with, an EF between 55 - 60 %. 14. The right ventricle is mildly enlarged. 15. LA is moderately dilated 34-39 ml/m2 16. RA appears enlarged. 17. Aortic valve is trileaflet and is moderately thickened. 18. There is mild aortic stenosis present. FINANCE PROFESSOR: Anaid Leblanc RDCS
[2017-01-10 12:02] LABS: Glucose,Whole Blood 121 mg/dL (75-99)
--- NOTE | 2017-01-10 12:05 | P.PN ---
Subjective Principal diagnosis: Atrial fibrillation This is an 82-year-old male with history of diabetes ,hypothyroidism, chronic alcoholism, who initially presented to the hospital with symptoms of chest discomfort. He was noted to be in atrial fibrillation with rapid ventricular response. He does follow in the office with Dr. Drake. Patient was seen and examined this morning, continues to be in A. fib heart rate fluctuating between the 80s and low 100s. Was still on a Cardizem drip. We will discontinue the IV Cardizem drip and increase his dose of beta cole. We will also discontinue the IV Lasix and place the patient back on his home dose of Lasix. Discontinue IV heparin, patient is not a candidate for anticoagulation because of GI bleeding and EtOH use. Echocardiogram with Doppler study was performed which revealed an LV function of 50-55%. Objective - Vital Signs Vital signs: Vital Signs Temp 97.1 F L 01/10/17 03:18 Pulse 98 01/10/17 11:24 Resp 18 01/10/17 11:24 BP 100/63 01/10/17 11:24 Pulse Ox 100 01/10/17 11:24 Intake & Output 01/09/17 01/10/17 01/10/17 18:59 06:59 18:59 Intake Total 1543.074 975.853 700 Balance 1543.074 975.853 700 Weight 77.8 kg Intake: IV 206.75 687.31 340 0.9 @20mls/hr 100 160 160 Diltiazem 125 mg In 17.5 5 40 Sodium Chloride 0.9% 100 ml @ 5 MG/HR 5 mls/hr IV .Q24H [facility] Rx#:[id number] Heparin Sodium,Porcine/ 89.25 22.31 140 D5w Pmx 25,000 unit In Dextrose/Water 1 500ml. bag @ 12 UNITS/KG/HR 17. 85 mls/hr IV .Q24H [facility] Rx #:[id number] Magnesium Sulfate-D5w Pmx 300 1 gm In Dextrose/Water 1 100ml.bag @ 100 mls/hr IVPB Q1H [facility] Rx#: [id number] Potassium Chloride 10 meq 200 Lidocaine 2% Inj 10 mg In Sodium Chloride 0.9% 100 ml @ 100 mls/hr IV Q1HR [facility] Rx#:[id number] Intake, IV Titration 496.324 288.543 Amount Diltiazem 125 mg In 122.167 Sodium Chloride 0.9% 100 ml @ 5 MG/HR 5 mls/hr IV .Q24H [facility] Rx#:[id number] Heparin Sodium,Porcine/ 374.157 288.543 D5w Pmx 25,000 unit In Dextrose/Water 1 500ml. bag @ 12 UNITS/KG/HR 17. 85 mls/hr IV .Q24H [facility] Rx #:[id number] Oral 840 360 Other: Voiding Method Diaper Diaper Diaper # Voids 2 2 - Exam PHYSICAL EXAMINATION: HEENT: Head is atraumatic, normocephalic. Pupils equal, round. Neck is supple. There is no elevated jugular venous pressure. HEART EXAMINATION: Heart S1 and S2 irregularly irregular a systolic murmur is heard CHEST EXAMINATION: Lungs reveal decreased air exchange throughout. ABDOMEN: Soft, nontender. Bowel sounds are heard. No organomegaly noted. EXTREMITIES: 2+ peripheral pulses with trace evidence of peripheral edema and no calf tenderness noted. NEUROLOGIC patient is awake, alert and oriented -2.] . - Labs CBC & Chem 7: 01/10/17 06:03 01/10/17 06:03 Labs: Abnormal Lab Results - Last 24 Hours (Table) 01/09/17 01/09/17 01/09/17 Range/Units 06:25 16:58 20:17 RBC (4.30-5.90) m/uL Hgb (13.0-17.5) gm/dL Hct (39.0-53.0) % MCV (80.0-100.0) fL MCH (25.0-35.0) pg Lymphocytes # (1.0-4.8) k/uL APTT (22.0-30.0) sec Potassium (3.5-5.1) mmol/L Glucose (74-99) mg/dL POC Glucose (mg/dL) 163 H 238 H (75-99) mg/dL Calcium (8.4-10.2) mg/dL TSH 0.179 L (0.465-4.680) mIU/L 01/10/17 01/10/17 01/10/17 Range/Units 06:01 06:03 06:03 RBC 2.50 L (4.30-5.90) m/uL Hgb 9.1 L (13.0-17.5) gm/dL Hct 29.0 L (39.0-53.0) % MCV 116.2 H (80.0-100.0) fL MCH 36.5 H (25.0-35.0) pg Lymphocytes # 0.5 L (1.0-4.8) k/uL APTT (22.0-30.0) sec Potassium 3.4 L (3.5-5.1) mmol/L Glucose 105 H (74-99) mg/dL POC Glucose (mg/dL) 120 H (75-99) mg/dL Calcium 8.0 L (8.4-10.2) mg/dL TSH 0.299 L (0.465-4.680) mIU/L 01/10/17 Range/Units 06:03 RBC (4.30-5.90) m/uL Hgb (13.0-17.5) gm/dL Hct (39.0-53.0) % MCV (80.0-100.0) fL MCH (25.0-35.0) pg Lymphocytes # (1.0-4.8) k/uL APTT 50.9 H (22.0-30.0) sec Potassium (3.5-5.1) mmol/L Glucose (74-99) mg/dL POC Glucose (mg/dL) (75-99) mg/dL Calcium (8.4-10.2) mg/dL TSH (0.465-4.680) mIU/L Assessment and Plan (1) Chronic a-fib Status: Acute (2) Diabetes Status: Acute (3) Diastolic CHF, acute on chronic Status: Acute (4) EtOH dependence Status: Acute (5) Thoracic back pain Status: Acute (6) GI (gastrointestinal bleed) Status: Acute Plan: From cardiology's perspective, we'll discontinue the IV heparin, discontinue IV Cardizem, discontinue IV Lasix. The patient back on Lasix 20 mg one tablet daily. Increased dose of beta cole. Patient is not a candidate for anticoagulation because of EtOH use and GI bleeding. A follow-up appointment will be made for the patient to see Dr. Drake in the office post discharge. DNP note has been reviewed, I agree with a documented findings and plan of care. Patient was seen and examined.
[2017-01-10] MEDS: FUROSEMIDE 20 MG TAB PO SCH (15:35)
--- NOTE | 2017-01-10 16:29 | P.PN ---
Progress Note - Text DATE OF SERVICE: 01/10/2017 PRESENTING COMPLAINT: Back pain INTERVAL HISTORY: This is an 82-year-old male who presented with back pain and had an incidental finding of atrial fibrillation with rapid ventricular rate. Today patient remains in atrial fibrillation rate uncontrolled, was on Cardizem drip and IV heparin. DC'd by cardiology. Patient's tolerating his diet, ambulatory within the room with assistance. Heart rate does elevate with minimal activity. REVIEW OF SYSTEMS: Done for constitutional ,cardiovascular, GI, pulmonary with relevant findings as above. CURRENT MEDICATIONS DuoNeb, Lanoxin, Lasix, heparin, levothyroxine, Lopressor 25 mg 3 times a day, nicotine patch PHYSICAL EXAM VITAL SIGNS: Temperature 97.1, pulse 111, respiratory rate 18, blood pressure 100/59, oxygen saturation 99% on 2 L GENERAL APPEARANCE: Lying in bed, not in distress. EYES: Pupils equal. Conjunctiva normal. NECK: JVD not raised. Mass not palpable. RESPIRATORY: Respiratory effort normal. Lungs clear to auscultation. CARDIOVASCULAR: Irregular rhythm uncontrolled rate l. No edema. ABDOMEN: Soft. Liver and spleen not palpable. No tenderness. No mass palpable. PSYCHIATRY: Alert and oriented x3. Mood and affect normal. INVESTIGATIONS: Hemoglobin 9.1, sodium 137, potassium 3.4, Accu-Cheks noted, TSH 0.299, free T4 2.00 Echocardiogram: Atrial fibrillation, EF between 55 and 60% Thoracic spine x-ray: Scoliosis ASSESSMENT: 1. 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 Atrial fibrillation with rapid ventricular rate, uncontrolled present on admission. 3. Diabetes mellitus type 2, on oral hypoglycemic. 4. Gastroesophageal reflux disease. 5. Essential hypertension. 6. Hypothyroidism need to rule out over replacement. 7. Gait dysfunction uses a cane and a walker. 8. Chronic radiation proctitis. 9. Chronic obstructive pulmonary disease and an ex-smoker. 10. Chronic nicotine dependence patient is a smoker. 11. Chronic alcohol use. PLAN: Patient remains in atrial fibrillation today rate between 110s and 120s. Because of patient's long-standing history of lower GI bleeding he is not an ideal candidate for anticoagulation therefore heparin has been discontinued with no plans for any other type of anticoagulation. Cardizem, Lasix have been discontinued. We'll resume patient on Lasix 20 mg daily by mouth. Beta cole frequency increased to 3 times a day. Readdressed smoking cessation and cessation of alcohol use. We'll continue to monitor closely. DIRECTOR BUILDING statement: Patient was seen and examined by nurse practitioner Esha Lynn and all elements of the case discussed with attending Dr. Redman
[2017-01-10 17:13] LABS: Glucose,Whole Blood 113 mg/dL (75-99)
[2017-01-10 21:31] LABS: Glucose,Whole Blood 159 mg/dL (75-99)
[2017-01-11 05:56] LABS: Glucose,Whole Blood 134 mg/dL (75-99)
[2017-01-11 06:16] LABS: Mean Platelet Volume 7.9
[2017-01-11 07:09] LABS: Anion Gap 7 mmol/L; Blood Urea Nitrogen 14 mg/dL (9-20); Calcium 7.9 mg/dL (8.4-10.2); Carbon Dioxide 23 mmol/L (22-30); Chloride 105 mmol/L (98-107); Glucose 115 mg/dL (74-99); Non-African American GFR(MDRD) >60 (>60 ml/min/1.73 sqM); Potassium 3.4 mmol/L (3.5-5.1); Sodium 135 mmol/L (137-145)
[2017-01-11] MEDS ORDERED: Potassium Replacement Protocol 1 EACH MISC MISCELLANE PRN (07:27)
[2017-01-11] MEDS: INSULIN LISPRO (humaLOG) 300 UNIT/3 ML VIAL SQ SCH ×4 (07:31→21:26)
[2017-01-11] MEDS: LEVOTHYROXINE 137 MCG TAB PO SCH (07:31)
[2017-01-11] MEDS: metFORMIN 500 MG TAB PO SCH ×2 (07:32→17:24)
[2017-01-11] MEDS: FUROSEMIDE 20 MG TAB PO SCH (08:14)
[2017-01-11] MEDS: METOPROLOL TARTRATE 25 MG TAB PO SCH ×3 (08:14→21:26)
[2017-01-11] MEDS: DIGOXIN 125 MCG TAB PO SCH (08:14)
[2017-01-11] MEDS: POTASSIUM CHLORIDE ER 20 MEQ TAB.ER PO SCH ×2 (08:15→09:33)
[2017-01-11] MEDS: NICOTINE 21MG/24HR PATCH TRANSDERM SCH (08:15)
[2017-01-11] MEDS: IPRATROPIUM-ALBUTEROL 3 ML NEB INHALATION SCH ×4 (08:28→20:06)
--- NOTE | 2017-01-11 10:20 | PN ---
DATE OF SERVICE: 01/10/2017 ATTENDING NOTE: This patient was seen and examined by me on 01/10/2017. I reviewed the note of my nurse practitioner, Ms. Lynn. Discussed and reviewed additional findings below. This is a patient who presented some back pain and atrial fibrillation with rapid ventricular rate. Heart rate is still up. Patient is showing his discontent about still being in the hospital. Patient had been on Cardizem drip and IV heparin. The patient is tolerating his diet. Needs some assistance with ambulation. On examination, heart rate about one teens, blood pressure 100/59. LUNGS: Decreased breath sounds. Heart sounds are irregular. PSYCH: Alert and oriented x3. ASSESSMENT: Persistent atrial fibrillation with rapid ventricular rate, uncontrolled, not a candidate for anticoagulation because of alcohol use. Patient is on digoxin and Lopressor 25 mg 3 times a day. It may be noted that patient probably over replaced with Synthroid given the low TSH. Hence, will hold off tomorrow's dose of Synthroid and cut back the dose that may be contributing to his atrial fibrillation.
[2017-01-11 11:43] LABS: Glucose,Whole Blood 123 mg/dL (75-99)
--- NOTE | 2017-01-11 15:34 | P.PN ---
Progress Note - Text DATE OF SERVICE: 01/11/2017 PRESENTING COMPLAINT: Back pain INTERVAL HISTORY: This is an 82-year-old male who presented with back pain and had an incidental finding of atrial fibrillation with rapid ventricular rate. Today patient remains in atrial fibrillation rate uncontrolled 110-120, was on Cardizem drip and IV heparin. These medications stopped by cardiology. TSH is low, dose of Synthroid decreased. Mood better today, more calm, cooperative. Patient's tolerating his diet, ambulatory within the room with assistance and a cane. Heart rate does elevate with minimal activity. REVIEW OF SYSTEMS: Done for constitutional ,cardiovascular, GI, pulmonary with relevant findings as above. CURRENT MEDICATIONS DuoNeb, Lanoxin, Lasix, heparin, levothyroxine, Lopressor 25 mg 3 times a day, nicotine patch PHYSICAL EXAM VITAL SIGNS: Temperature 97.8, pulse 124, respiratory rate 18, blood pressure 114/65, oxygen saturation 99% on room air. GENERAL APPEARANCE: Lying in bed, not in distress. EYES: Pupils equal. Conjunctiva normal. NECK: JVD not raised. Mass not palpable. RESPIRATORY: Respiratory effort normal. Lungs diminished to auscultation. CARDIOVASCULAR: Irregular rhythm uncontrolled rate l. No edema. ABDOMEN: Soft. Liver and spleen not palpable. No tenderness. No mass palpable. PSYCHIATRY: Alert and oriented x3. Mood and affect calm and cooperative. INVESTIGATIONS: Sodium 135, Accu-Cheks noted. Echocardiogram: Atrial fibrillation, EF between 55 and 60% Thoracic spine x-ray: Scoliosis ASSESSMENT: 1. 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 Persistent Atrial fibrillation with rapid ventricular rate, secondary to hyperthyroidism, uncontrolled present on admission. 3. Diabetes mellitus type 2, on oral hypoglycemic. 4. Gastroesophageal reflux disease. 5. Essential hypertension. 6. Hyperthyroidism secondary to low TSH, Synthroid decreased to 100 g. 7. Gait dysfunction uses a cane and a walker. 8. Chronic radiation proctitis. 9. Chronic obstructive pulmonary disease and an ex-smoker. 10. Chronic nicotine dependence patient is a smoker. 11. Chronic alcohol use. PLAN: Patient remains in atrial fibrillation today rate between 110s and 120s. Because of patient's long-standing history of lower GI bleeding he is not an ideal candidate for anticoagulation there are no plans for any type of anticoagulation. Low TSH, Synthroid dose decreased. We'll monitor his response. Readdressed smoking cessation and cessation of alcohol use. We'll continue to monitor closely. BASS FISHER statement: Patient was seen and examined by nurse practitioner Esha Lynn and all elements of the case discussed with attending Dr. Redman
[2017-01-11] MEDS ORDERED: POTASSIUM CHLORIDE ER 20 MEQ TAB.ER PO ONE (16:00)
--- NOTE | 2017-01-11 16:30 | P.PN ---
Subjective Principal diagnosis: Atrial fibrillation This is an 82-year-old male with history of diabetes ,hypothyroidism, chronic alcoholism, who initially presented to the hospital with symptoms of chest discomfort. He was noted to be in atrial fibrillation with rapid ventricular response. He does follow in the office with Dr. Drake. Patient was seen and examined this morning, continues to be in A. fib heart rate fluctuating between the 100s and 120s. Going through DTs today. Objective - Vital Signs Vital signs: Vital Signs Temp 97.8 F 01/11/17 08:00 Pulse 124 H 01/11/17 12:00 Resp 18 01/11/17 12:00 BP 110/72 01/11/17 12:00 Pulse Ox 96 01/11/17 12:00 Intake & Output 01/10/17 01/11/17 01/11/17 18:59 06:59 18:59 Intake Total 1127 Output Total 450 Balance 677 Weight 77.2 kg Intake: IV 340 0.9 @20mls/hr 160 Diltiazem 125 mg In 40 Sodium Chloride 0.9% 100 ml @ 5 MG/HR 5 mls/hr IV .Q24H [facility] Rx#:[id number] Heparin Sodium,Porcine/ 140 D5w Pmx 25,000 unit In Dextrose/Water 1 500ml. bag @ 12 UNITS/KG/HR 17. 85 mls/hr IV .Q24H [facility] Rx #:[id number] Oral 787 Output: Urine 450 Other: Voiding Method Diaper Diaper Diaper # Voids 2 0 1 # Bowel Movements 1 - Exam PHYSICAL EXAMINATION: HEENT: Head is atraumatic, normocephalic. Pupils equal, round. Neck is supple. There is no elevated jugular venous pressure. HEART EXAMINATION: Heart S1 and S2 irregularly irregular a systolic murmur is heard CHEST EXAMINATION: Lungs reveal decreased air exchange throughout. ABDOMEN: Soft, nontender. Bowel sounds are heard. No organomegaly noted. EXTREMITIES: 2+ peripheral pulses with trace evidence of peripheral edema and no calf tenderness noted. NEUROLOGIC patient is awake, alert and oriented -1.] Going through active DVTs. . - Labs CBC & Chem 7: 01/11/17 05:27 01/11/17 10:59 Labs: Abnormal Lab Results - Last 24 Hours (Table) 01/10/17 01/10/17 01/11/17 Range/Units 17:04 21:16 05:27 Sodium 135 L (137-145) mmol/L Potassium 3.4 L (3.5-5.1) mmol/L Glucose 115 H (74-99) mg/dL POC Glucose (mg/dL) 113 H 159 H (75-99) mg/dL Calcium 7.9 L (8.4-10.2) mg/dL 01/11/17 01/11/17 Range/Units 05:55 11:36 Sodium (137-145) mmol/L Potassium (3.5-5.1) mmol/L Glucose (74-99) mg/dL POC Glucose (mg/dL) 134 H 123 H (75-99) mg/dL Calcium (8.4-10.2) mg/dL Assessment and Plan (1) Chronic a-fib Status: Acute (2) Diabetes Status: Acute (3) Diastolic CHF, acute on chronic Status: Acute (4) EtOH dependence Status: Acute (5) Thoracic back pain Status: Acute (6) GI (gastrointestinal bleed) Status: Acute Plan: From cardiology's perspective, we will continue with current medications. Make follow-up appointment with Dr. Drake post discharge. DNP note has been reviewed, I agree with a documented findings and plan of care. Patient was seen and examined.
[2017-01-11 16:52] LABS: Glucose,Whole Blood 141 mg/dL (75-99)
[2017-01-11 21:20] LABS: Glucose,Whole Blood 178 mg/dL (75-99)
[2017-01-11] MEDS ORDERED: LORazepam 2 MG/ML SYRINGE IV PRN ×3 (21:29)
[2017-01-11 22:19] LABS: Basophils % (A) 0 %; CH 37.7; CHCM 32.4; Eosinophils % (A) 1 %; HCT 27.3 % (39.0-53.0); HDW 2.44; HGB 8.6 gm/dL (13.0-17.5); Luc # (Auto) 0.06; Luc % (Auto) 2; Lymphocytes # (A) 0.5 k/uL (1.0-4.8); Lymphocytes % (A) 14 %; MCHC 31.7 g/dL (31.0-37.0); MCV 116.9 fL (80.0-100.0); Macrocytosis Marked; Mean Platelet Volume 8.1; Monocytes # (A) 0.1 k/uL (0-1.0); Monocytes % (A) 4 %; Neutrophils # (A) 2.8 k/uL (1.3-7.7); Neutrophils % (A) 79 %; RBC 2.33 m/uL (4.30-5.90); RDW 15.1 % (11.5-15.5); WBC 3.5 k/uL (3.8-10.6); WBC (Perox) 3.59
[2017-01-12 06:06] LABS: Glucose,Whole Blood 104 mg/dL (75-99)
[2017-01-12] MEDS: INSULIN LISPRO (humaLOG) 300 UNIT/3 ML VIAL SQ SCH ×4 (06:13→22:08)
[2017-01-12] MEDS ORDERED: LEVOTHYROXINE 100 MCG TAB PO SCH (06:30)
[2017-01-12] MEDS: metFORMIN 500 MG TAB PO SCH ×2 (06:44→17:24)
[2017-01-12 07:17] LABS: Anion Gap 8 mmol/L; Blood Urea Nitrogen 12 mg/dL (9-20); Calcium 8.2 mg/dL (8.4-10.2); Carbon Dioxide 22 mmol/L (22-30); Chloride 108 mmol/L (98-107); Glucose 89 mg/dL (74-99); Non-African American GFR(MDRD) >60 (>60 ml/min/1.73 sqM); Potassium 3.7 mmol/L (3.5-5.1); Sodium 138 mmol/L (137-145)
[2017-01-12] MEDS: IPRATROPIUM-ALBUTEROL 3 ML NEB INHALATION SCH ×4 (07:39→20:07)
[2017-01-12] MEDS: NICOTINE 21MG/24HR PATCH TRANSDERM SCH (07:43)
[2017-01-12] MEDS: METOPROLOL TARTRATE 25 MG TAB PO SCH ×3 (07:43→19:40)
[2017-01-12] MEDS: FUROSEMIDE 20 MG TAB PO SCH (07:43)
[2017-01-12] MEDS: DIGOXIN 125 MCG TAB PO SCH (07:44)
[2017-01-12 08:03] LABS: Basophils % (A) 1 %; CH 37.3; CHCM 31.6; Eosinophils # (A) 0.1 k/uL (0-0.7); Eosinophils % (A) 2 %; HCT 28.3 % (39.0-53.0); HDW 2.43; Luc # (Auto) 0.06; Luc % (Auto) 2; Lymphocytes # (A) 0.5 k/uL (1.0-4.8); Lymphocytes % (A) 17 %; MCH 37.8 pg (25.0-35.0); MCHC 31.9 g/dL (31.0-37.0); MCV 118.4 fL (80.0-100.0); Macrocytosis Marked; Mean Platelet Volume 8.8; Monocytes # (A) 0.2 k/uL (0-1.0); Monocytes % (A) 6 %; Neutrophils % (A) 72 %; RBC 2.39 m/uL (4.30-5.90); RDW 15.1 % (11.5-15.5); WBC 2.8 k/uL (3.8-10.6); WBC (Perox) 2.87
[2017-01-12 10:25] LABS: Manual Review Performed
--- NOTE | 2017-01-12 10:30 | P.CONS ---
History of Present Illness - Reason for Consult Consult date: 01/12/17 blood in stool Requesting physician: Ramez Redman - History of Present Illness 82-year-old gentleman with a history of EtOH abuse 1/4 pint of vodka daily, diverticulosis, GERD, enlarged prostate with radiation proctitis, bowel resection, diabetes. Admitted with back pain atrial fibrillation with RVR. IV Cardizem and heparin. Thoracic aorta CT bilateral lower lobe pulmonary infiltrates pleural effusion possible CHF. Atherosclerotic vascular disease noted. Consult requested for blood in stool. Admission hemoglobin 10.7. MCV 112. Platelets 326. BUN 8. Creatinine 0.6. Presently hemoglobin is 9.0. INR 1.1. BUN 12. Creatinine 0.6. Patient states small amount of blood in stool once a week since endoscopy. No abdominal pain. Last episode of blood in stool about a week ago. Colonoscopy 11/17/2016 for evaluation of 1 month history of rectal bleeding reported findings of radiation proctitis status post argon plasma coagulation. Hemoglobin October 2016 was 9.1. Review of Systems Constitutional: Denies fever, chills, sweats, weight gain, or loss. HEENT: Negative for migraines, blurred vision or loss, earaches, drainage, tinnitus, oral mucosal lesions, dysphagia, or odynophagia. Cardiac: Hypertension. Negative for chest pain, arrhythmias, or palpitation. Respiratory: Nicotine cigarette dependency. Negative for shortness of breath, hemoptysis, cough, or sputum production. Gastrointestinal: See HPI for pertinent findings. Genitourinary: Negative for hematuria, urgency, frequency, polyuria, dysuria, or penile discharge. Musculoskeletal: Negative for muscle aches, swelling, arthritis, and arthralgias. Neurologic: Diabetes mellitus. Negative for stroke or TIA. Endocrine: Negative for thyroid problems. Skin: Skin carcinoma. Negative for rash or itching. Psychiatric: Negative history for depression and anxiety All systems: negative (See HPI) Past Medical History Past Medical History: Cancer, Diabetes Mellitus, GERD/Reflux, Hypertension, Prostate Disorder, Thyroid Disorder Additional Past Medical History / Comment(s): thyroid cancer, skin cancer, ENLARGED PROSTATE,DIVERTICULAR DX,"HEART SKIPS A BEAT", prostate cancer, History of Any Multi-Drug Resistant Organisms: None Reported Past Surgical History: Bowel Resection Additional Past Surgical History / Comment(s): thyroidectomy, colonoscopy/ polypectomy, skin cancer removed, cataracts, bowel resection-d/t diverticulits Past Anesthesia/Blood Transfusion Reactions: No Reported Reaction Past Psychological History: No Psychological Hx Reported Smoking Status: Current every day smoker Past Alcohol Use History: Abuse Past Drug Use History: None Reported - Past Family History Father Family Medical History: Asthma, CVA/TIA Additional Family Medical History / Comment(s): pacemaker, smoker Mother Family Medical History: Chest Pain / Angina Additional Family Medical History / Comment(s): smoker Medications and Allergies Home Medications Medication Instructions Recorded Confirmed Type metFORMIN HCL ER [Glucophage Xr] 500 mg PO DAILY 07/06/16 01/08/17 History Levothyroxine Sodium [Synthroid] 137 mcg PO DAILY 10/24/16 01/08/17 History Naphazoline HCl/Glycerin [Clear 1 drop BOTH EYES DAILY PRN 10/24/16 01/08/17 History Eyes Max Redness Rlf Drp] Albuterol Inhaler [Ventolin Hfa 1 - 2 puff INHALATION RT-QID PRN 01/08/17 History Inhaler] Furosemide [Lasix] 20 mg PO DAILY 01/08/17 01/08/17 History Allergies Allergy/AdvReac Type Severity Reaction Status Date / Time aspirin AdvReac Rash/Hives Verified 01/09/17 08:46 Physical Exam Vitals: Vital Signs Temp Pulse Resp BP BP Pulse Ox 01/12/17 07:35 96.7 F L 125 H 18 113/70 99 01/12/17 04:00 97.4 F L 124 H 16 123/82 94 L 01/11/17 23:57 121 H 18 01/11/17 23:06 121 H 18 91/62 100 01/11/17 20:00 96.8 F L 123 H 18 116/76 96 01/11/17 16:00 123 H 18 126/77 96 01/11/17 12:00 124 H 18 110/72 96 Intake and Output 01/11/17 01/12/17 01/12/17 22:59 06:59 14:59 Intake Total 240 10 180 Balance 240 10 180 Intake: IV 10 0.9 @20mls/hr 10 Oral 240 180 Other: Voiding Method Diaper Diaper Diaper # Voids 1 1 # Bowel Movements 1 Weight 76.4 kg General appearance: The patient is alert, oriented, in no acute distress. HET: Head is normocephalic and atraumatic. Pupils are equal and reactive. Oropharynx is clear without lesions. Neck: Supple without lymphadenopathy. Trachea midline. Heart: S1 S2. Regular rate and rhythm. Lungs: No crackles or wheezes are heard. Abdomen: Soft, nontender, nondistended with bowel sounds. No peritoneal signs. No palpable organomegaly or masses. Extremities: Normal skin color and turgor. No cyanosis, rash, ulceration, clubbing, or edema. Radial and pedal pulses are 2/4 bilaterally. Neurological: No focal deficits. Strength and sensation are grossly intact. Results CBC & Chem 7: 01/12/17 05:56 01/12/17 05:56 Labs: Abnormal Lab Results - Last 24 Hours (Table) 01/11/17 01/11/17 01/11/17 Range/Units 11:36 16:48 21:19 WBC (3.8-10.6) k/uL RBC (4.30-5.90) m/uL Hgb (13.0-17.5) gm/dL Hct (39.0-53.0) % MCV (80.0-100.0) fL MCH (25.0-35.0) pg Lymphocytes # (1.0-4.8) k/uL Chloride (98-107) mmol/L POC Glucose (mg/dL) 123 H 141 H 178 H (75-99) mg/dL Calcium (8.4-10.2) mg/dL 01/11/17 01/12/17 01/12/17 Range/Units 22:01 05:56 05:56 WBC 3.5 L 2.8 L (3.8-10.6) k/uL RBC 2.33 L 2.39 L (4.30-5.90) m/uL Hgb 8.6 L 9.0 L (13.0-17.5) gm/dL Hct 27.3 L 28.3 L (39.0-53.0) % MCV 116.9 H 118.4 H (80.0-100.0) fL MCH 37.0 H 37.8 H (25.0-35.0) pg Lymphocytes # 0.5 L (1.0-4.8) k/uL Chloride 108 H (98-107) mmol/L POC Glucose (mg/dL) (75-99) mg/dL Calcium 8.2 L (8.4-10.2) mg/dL 01/12/17 Range/Units 06:04 WBC (3.8-10.6) k/uL RBC (4.30-5.90) m/uL Hgb (13.0-17.5) gm/dL Hct (39.0-53.0) % MCV (80.0-100.0) fL MCH (25.0-35.0) pg Lymphocytes # (1.0-4.8) k/uL Chloride (98-107) mmol/L POC Glucose (mg/dL) 104 H (75-99) mg/dL Calcium (8.4-10.2) mg/dL Assessment and Plan (1) Rectal bleeding Narrative/Plan: most likely secondary to radiation proctitis Status: Acute (2) Radiation proctitis Status: Acute (3) Atrial fibrillation with RVR Status: Acute (4) EtOH dependence Status: Acute (5) Thoracic back pain Status: Acute (6) Anemia Narrative/Plan: Acute blood loss Status: Acute Plan: 1. Patient was advised to follow up 3 months after endoscopy however will move appointment up to next week. Repeat endoscopy not planned at this time. Iron indices. Caustious use of ASA, NSAIDs or antiplatelet medications. May benefit from iron supplementation. Continue to observe. Will follow with you. Thank you for this kind referral and the opportunity to participate in the care of your patient. This consultation was discussed with Dr. Camacho. The impression and plan of care have been directed as dictated.
[2017-01-12 11:32] LABS: Glucose,Whole Blood 118 mg/dL (75-99)
[2017-01-12 12:29] LABS: % Iron Saturation 11.9 % (20-50)
--- NOTE | 2017-01-12 13:48 | PN ---
ATTENDING NOTE: This patient was seen and examined by me on 01/12/17. Reviewed the note of my nurse practitioner, Ms. Lynn. Discussed reviewed initial findings below. Patient admitted with atrial fibrillation with rapid ventricular rate, Patient was found to be over replaced with Synthroid. I cut back the dose of Synthroid from 137 mcg to 100 mcg omitting one dose. Later in the evening nurse called and the patient having some blood in the stools and GI has been consulted. On examination, heart rate 124. Patient is actually walking in the hallway with the stick. LUNGS: Decreased breath sounds. Mild wheezing. CARDIOVASCULAR: Heart sounds irregular. ABDOMEN: Soft, nontender. ASSESSMENT: 1. Persistent atrial fibrillation. Heart rate uncontrolled secondary to hypothyroidism from over replacement. 2. Acute gastrointestinal bleed. PLAN: GI has been consulted. Synthroid dose reduced 100 mcg. Care was discussed with the patient. Repeat hemoglobin
[2017-01-12 17:04] LABS: Glucose,Whole Blood 168 mg/dL (75-99)
[2017-01-12] MEDS ORDERED: ALBUTEROL INHALER 60 PUFF/8 GM INHALER INHALATION PRN (19:27)
[2017-01-12 20:51] LABS: Glucose,Whole Blood 154 mg/dL (75-99)
[2017-01-13] MEDS: SYMBICORT 160-4.5 MCG INHALER INHALATION SCH ×2 (00:57→08:11)
[2017-01-13 06:02] LABS: Glucose,Whole Blood 130 mg/dL (75-99)
[2017-01-13] MEDS: INSULIN LISPRO (humaLOG) 300 UNIT/3 ML VIAL SQ SCH ×2 (06:22→12:18)
[2017-01-13] MEDS ORDERED: LEVOTHYROXINE 100 MCG TAB PO SCH (06:30)
[2017-01-13] MEDS: metFORMIN 500 MG TAB PO SCH (06:40)
[2017-01-13] MEDS: METOPROLOL TARTRATE 25 MG TAB PO SCH (06:48)
[2017-01-13 06:50] LABS: Basophils % (A) 1 %; CH 36.9; CHCM 32.3; Eosinophils # (A) 0.1 k/uL (0-0.7); Eosinophils % (A) 2 %; HCT 28.3 % (39.0-53.0); HDW 2.63; HGB 9.6 gm/dL (13.0-17.5); Luc # (Auto) 0.11; Luc % (Auto) 3; Lymphocytes # (A) 0.5 k/uL (1.0-4.8); Lymphocytes % (A) 14 %; MCH 38.9 pg (25.0-35.0); MCHC 33.9 g/dL (31.0-37.0); MCV 114.6 fL (80.0-100.0); Macrocytosis Marked; Mean Platelet Volume 7.8; Monocytes # (A) 0.2 k/uL (0-1.0); Monocytes % (A) 6 %; Neutrophils # (A) 2.8 k/uL (1.3-7.7); Neutrophils % (A) 75 %; RBC 2.47 m/uL (4.30-5.90); RDW 14.6 % (11.5-15.5); WBC 3.8 k/uL (3.8-10.6); WBC (Perox) 4.01
[2017-01-13 07:03] LABS: Anion Gap 10 mmol/L; Blood Urea Nitrogen 10 mg/dL (9-20); Calcium 8.6 mg/dL (8.4-10.2); Carbon Dioxide 22 mmol/L (22-30); Chloride 105 mmol/L (98-107); Glucose 121 mg/dL (74-99); Non-African American GFR(MDRD) >60 (>60 ml/min/1.73 sqM); Potassium 3.6 mmol/L (3.5-5.1); Sodium 137 mmol/L (137-145)
--- NOTE | 2017-01-13 07:46 | PN ---
DATE OF SERVICE: 01/12/2017 This 82-year-old gentleman who was admitted with acute upper back pain in the thoracic area also had degenerative joint disease with back pain. The patient also had paroxysmal atrial fibrillation with rapid ventricular rate. The patient being closely monitored. Cardiology is following the patient closely. Also seen by gastroenterology today for rectal bleeding which was thought to be most likely secondary to radiation proctitis. PAST MEDICAL HISTORY: Reviewed. REVIEW OF SYSTEMS: CARDIOVASCULAR: As mentioned earlier. RESPIRATORY: As mentioned earlier. GI: No nausea. : No dysuria. CENTRAL NERVOUS SYSTEM: No numbness or weakness. Current medications are reviewed and include: 1. Tylenol 1000 mg. 2. DuoNeb q.i.d. and p.r.n. 3. Artificial tears. 4. Lanoxin 120 mcg p.o. daily. 5. Lasix 20 mg p.o. daily. 6. Heparin. 7. Humalog scale. 8. Synthroid 100 micrograms p.o. daily. 9. Ativan 1 mg p.r.n. 10. Glucophage 250 mg b.i.d. 11. Lopressor 25 mg p.o. t.i.d. 12. Habitrol 21 daily. 13. Morphine p.r.n. 14. Nitrostat 0.4 sublingual p.r.n. PHYSICAL EXAMINATION: The patient is alert and oriented times three. Pulse 122 irregular, blood pressure 103/62, respiration 18, temperature 97.6, pulse ox 100 percent on room air. HEENT: Conjunctivae normal. Oral mucosa moist. NECK: No jugular venous distention. No carotid bruit. No lymph node enlargement. CARDIOVASCULAR: S1, S2 muffled. Irregular. RESPIRATORY: Breath sounds diminished at the bases. A few scattered rhonchi and crackles. Expectant wheezing also present. ABDOMEN: Soft, nontender. No mass palpable. Legs: No edema. No swelling. CENTRAL NERVOUS SYSTEM: Higher functions as mentioned earlier. Moves all four limbs. No focal deficits. LYMPHATICS: No lymph nodes palpable in the neck, axillae or groin. SKIN: No ulcer, rash or bleeding. Labs are WBC 2.8, hemoglobin 9, MCV 118. ASSESSMENT: 1. Atrial fibrillation with a fast ventricular rate. 2. History of chronic persistent atrial fibrillation. 3. Acute upper back pain in the pelvis and possible degenerative joint disease with improving. 4. Lower gastrointestinal bleeding possible radiation proctitis. 5. Diabetes mellitus, type II on oral hypoglycemic agents. 6. History of gastroesophageal reflux disease. 7. Hypothyroidism iatrogenic Synthroid reduce to 100 mcg. 8. Gait dysfunction uses a cane and walker. 9. Chronic radiation proctitis history. 10. Chronic obstructive pulmonary disease. 11. History of nicotine dependence. 12. History of ETOH. 13. Anemia, leukopenia. 14. FULL CODE. RECOMMENDATIONS AND DISCUSSION: In this 82-year-old gentleman who presented with multiple complex medical issues, we will monitor the patient closely, continue the current medications. Continue symptomatic treatment. Otherwise, at this time, I would recommend continue with the current medications, continue with digoxin, and as well as beta blockers monitor blood sugars closely. Gastroenterology input appreciated. Repeat labs will be ordered, otherwise prognosis guarded because of multiple complex medical issues. Further recommendations to follow. Discussed with the patient who understands and agrees. Also discussed with staff. MELYSSA
[2017-01-13] MEDS: IPRATROPIUM-ALBUTEROL 3 ML NEB INHALATION SCH ×2 (08:11→11:58)
[2017-01-13 09:53] VITALS: RESP 16
[2017-01-13] MEDS: DIGOXIN 125 MCG TAB PO SCH (09:58)
[2017-01-13] MEDS: NICOTINE 21MG/24HR PATCH TRANSDERM SCH (09:58)
--- NOTE | 2017-01-13 10:05 | P.PN ---
Subjective Principal diagnosis: rectal bleeding history of radiation proctitis 82-year-old gentleman with a history of alcohol dependency radiation proctitis status post colonoscopy November 21 with findings of radiation proctitis/ argon plasma coagulation admitted with back pain , A. fib with RVR. evaluated yesterday in regards to rectal bleeding. personally witnessed bowel movement this morning brown in nature. sometimes small tinge of red blood mixed with brown stool. Denies abdominal pain. hemoglobin 9.6 today up from 9.0 yesterday. no blood transfusions. iron indices suggest iron deficiency anemia Objective - Vital Signs Vital signs: Vital Signs Temp 97.8 F 01/13/17 03:19 Pulse 127 H 01/13/17 03:21 Resp 14 01/13/17 03:21 BP 123/80 01/13/17 03:19 Pulse Ox 98 01/13/17 03:19 Intake & Output 01/12/17 01/13/17 01/13/17 18:59 06:59 18:59 Intake Total 1480 Balance 1480 Weight 75 kg Intake: IV 160 0.9 @20mls/hr 160 Oral 1320 Other: Voiding Method Diaper Diaper # Voids 1 2 - Exam General appearance: The patient is alert, oriented, in no acute distress. HET: Head is normocephalic and atraumatic. Pupils are equal and reactive. Oropharynx is clear without lesions. Neck: Supple without lymphadenopathy. Trachea midline. Heart: S1 S2. Lungs: No crackles or wheezes are heard. Abdomen: Soft, nontender, nondistended with bowel sounds. No peritoneal signs. No palpable organomegaly or masses. Extremities: Normal skin color and turgor. No cyanosis, rash, ulceration, clubbing, or edema. Radial and pedal pulses are 2/4 bilaterally. Neurological: No focal deficits. Strength and sensation are grossly intact. - Labs CBC & Chem 7: 01/13/17 06:17 01/13/17 06:17 Labs: Abnormal Lab Results - Last 24 Hours (Table) 01/12/17 01/12/17 01/12/17 Range/Units 05:56 05:56 11:29 WBC 2.8 L (3.8-10.6) k/uL RBC 2.39 L (4.30-5.90) m/uL Hgb 9.0 L (13.0-17.5) gm/dL Hct 28.3 L (39.0-53.0) % MCV 118.4 H (80.0-100.0) fL MCH 37.8 H (25.0-35.0) pg Lymphocytes # 0.5 L (1.0-4.8) k/uL Glucose (74-99) mg/dL POC Glucose (mg/dL) 118 H (75-99) mg/dL Iron 26 L (49-181) ug/dL TIBC 219 L (261-462) ug/dL % Saturation 11.9 L (20-50) % 01/12/17 01/12/17 01/13/17 Range/Units 17:02 20:50 06:00 WBC (3.8-10.6) k/uL RBC (4.30-5.90) m/uL Hgb (13.0-17.5) gm/dL Hct (39.0-53.0) % MCV (80.0-100.0) fL MCH (25.0-35.0) pg Lymphocytes # (1.0-4.8) k/uL Glucose (74-99) mg/dL POC Glucose (mg/dL) 168 H 154 H 130 H (75-99) mg/dL Iron (49-181) ug/dL TIBC (261-462) ug/dL % Saturation (20-50) % 01/13/17 01/13/17 Range/Units 06:17 06:17 WBC (3.8-10.6) k/uL RBC 2.47 L (4.30-5.90) m/uL Hgb 9.6 L (13.0-17.5) gm/dL Hct 28.3 L (39.0-53.0) % MCV 114.6 H (80.0-100.0) fL MCH 38.9 H (25.0-35.0) pg Lymphocytes # (1.0-4.8) k/uL Glucose 121 H (74-99) mg/dL POC Glucose (mg/dL) (75-99) mg/dL Iron (49-181) ug/dL TIBC (261-462) ug/dL % Saturation (20-50) % Assessment and Plan (1) Rectal bleeding Narrative/Plan: most likely secondary to radiation proctitis Status: Acute (2) Radiation proctitis Status: Acute (3) Atrial fibrillation with RVR Status: Acute (4) EtOH dependence Status: Acute (5) Thoracic back pain Status: Acute (6) Anemia Narrative/Plan: Acute blood loss. Iron deficiency. Status: Acute Plan: 1. Patient was advised to follow up 3 months after endoscopy however will move appointment up to next week rescheduled January 21. Repeat endoscopy not planned at this time. Iron indices reviewed. Caustious use of ASA, NSAIDs or antiplatelet medications. May benefit from iron supplementation. Will follow as needed. assessment and plan of care discussed with Dr. Camacho
[2017-01-13] MEDS: FUROSEMIDE 20 MG TAB PO SCH (10:09)
[2017-01-13 11:07] VITALS: BMI 25.1
[2017-01-13 11:15] LABS: Manual Review Performed
[2017-01-13 11:24] LABS: Glucose,Whole Blood 171 mg/dL (75-99)
[2017-01-13 12:16] VITALS: BP 115/68; PULSE 120; TEMP 97.5
--- NOTE | 2017-01-14 14:01 | DS ---
DATE OF ADMISSION: 01/08/2017 DATE OF DISCHARGE: 01/13/2017 FINAL DIAGNOSES: 1. Atrial fibrillation with fast ventricular rate. 2. History of chronic persistent atrial fibrillation. 3. Acute upper back pain, in the pelvis and possible degenerative joint disease. 4. Lower gastrointestinal bleeding possibly related to radiation proctitis. 5. Anemia, acute on chronic blood loss anemia. 6. Diabetes mellitus type 2 on oral hypoglycemic agents. 7. History of gastroesophageal reflux disease. 8. Hyperthyroidism, iatrogenic, Synthroid reduced to 100 mcg. 9. Gait dysfunction, using a cane and walker. 10. History of chronic obstructive pulmonary disease. 11. History of chronic radiation proctitis history. 12. History of nicotine dependence. 13. History of EtOH. 14. Anemia and leukopenia. 15. FULL CODE. DISCHARGE DISPOSITION: The patient will be discharged in stable condition with guarded prognosis. Time taken 35 minutes. HISTORY OF PRESENT ILLNESS: This 82-year-old gentleman with a past medical history of multiple medical problems being followed by Dr. Sanchez in the outpatient setting admitted with acute atrial fibrillation with fast ventricular rate. The patient was treated symptomatically. Patient improved significantly. The patient also had anemia and gastroenterology saw the patient thought to be secondary to chronic radiation proctitis. Currently on exam, vitals are stable. CARDIOVASCULAR: S1, S2. ABDOMEN: Soft. NERVOUS SYSTEM: No focal deficits. Hemoglobin 9.2. Patient is keen on going home. The patient will be discharged after multiple consultants DISCHARGE ADVICE: 1. Diet is cardiac. 2. Activity limited until follow-up. 3. Follow up with Dr. Gee in 2 to 3 days. 4. Follow up with Dr. Soliz as advised. 5. CBC, BMP in outpatient. 6. Follow with cardiology as recommended. MEDICATIONS: 1. No anticoagulation and no antiplatelets. To be evaluated in the outpatient setting. 2. Otherwise, albuterol 1 to 2 puffs q.4 p.r.n. 3. Symbicort 160/4.5, 2 puffs b.i.d. 4. Lanoxin 125 mcg p.o. daily. 5. Lasix 20 mg p.o. daily. 6. Synthroid 100 mcg p.o. daily. Changed dose. 7. Glucophage 250 mg p.o. a.c. b.i.d. 8. Lopressor 25 mg p.o. b.i.d. 9. Clear Dry eye drops. 10. Habitrol 21 daily. Once again, the patient will be discharged in a stable condition with guarded prognosis. MELYSSA
== END 2017-01-13 14:22 | disposition home health service (06) | DRG 308 ==
LOC: EC 13:29 → 6SEL 17:00
PROVIDERS: ADMIT Hospitalist; ATTEND Hospitalist
DX: I48.1 Persistent atrial fibrillation (principal); I50.33 Acute on chronic diastolic (congestive) heart failure; F10.231 Alcohol dependence with withdrawal delirium; D62 Acute posthemorrhagic anemia; K92.1 Melena; I11.0 Hypertensive heart disease with heart failure; J44.9 Chronic obstructive pulmonary disease, unspecified; E05.80 Other thyrotoxicosis without thyrotoxic crisis or storm; D50.0 Iron deficiency anemia secondary to blood loss (chronic); E11.9 Type 2 diabetes mellitus without complications; K62.7 Radiation proctitis; T38.1X5A Adverse effect of thyroid hormones and substitutes, initial encounter; K21.9 Gastro-esophageal reflux disease without esophagitis; F17.210 Nicotine dependence, cigarettes, uncomplicated; R26.9 Unspecified abnormalities of gait and mobility; N40.0 Benign prostatic hyperplasia without lower urinary tract symptoms; M47.814 Spondylosis without myelopathy or radiculopathy, thoracic region; Z92.3 Personal history of irradiation; Z85.46 Personal history of malignant neoplasm of prostate; Z98.42 Cataract extraction status, left eye; Z98.41 Cataract extraction status, right eye; Z85.850 Personal history of malignant neoplasm of thyroid; Z90.49 Acquired absence of other specified parts of digestive tract; Z85.828 Personal history of other malignant neoplasm of skin; Z79.84 Long term (current) use of oral hypoglycemic drugs; Z79.51 Long term (current) use of inhaled steroids; Z79.899 Other long term (current) drug therapy
CPT/HCPCS: 36415; 71010; 71275; 72070; 75635; 76705; 80048; 80053; 80061; 82550; 82553; 83540; 83550; 83735; 83880; 84132; 84439; 84443; 84484; 85025; 85049; 85379; 85610; 85730; 93005; 93306; 94640; 96361; 96365; 96368; 96375; 96376; 99291

== ENCOUNTER 2017-07-29 02:11 | Inpatient (IN) | payer MEDICARE, OTHER ==
[2017-07-29] MEDS ORDERED: SODIUM CHLORIDE 0.9% 1,000 ML IV STA ×2 (02:21)
[2017-07-29] MEDS ORDERED: ALBUTEROL NEBULIZED 2.5 MG/3 ML INHALATION STA (02:21)
[2017-07-29] MEDS ORDERED: AZITHROMYCIN 500 MG in SODIUM CHLORIDE 0.9% 250 ML IVPB STA (02:21)
[2017-07-29] MEDS ORDERED: methylPREDNISolone SOD SUCCI 125 MG/2 ML VIAL IV STA (02:21)
[2017-07-29] MEDS ORDERED: LORazepam 2 MG/ML INJ IV STA (02:21)
[2017-07-29] MEDS ORDERED: IPRATROPIUM 0.5 MG/2.5 ML NEBU INHALATION STA (02:21)
[2017-07-29 02:28] LABS: Basophils % (A) 1 %; Eosinophils # (A) 0.1 k/uL (0-0.7); Eosinophils % (A) 3 %; HCT 35.1 % (39.0-53.0); Lymphocytes # (A) 0.8 k/uL (1.0-4.8); Lymphocytes % (A) 21 %; MCH 36.8 pg (25.0-35.0); MCHC 31.2 g/dL (31.0-37.0); Macrocytosis Marked; Mean Platelet Volume 8.3; Monocytes # (A) 0.3 k/uL (0-1.0); Monocytes % (A) 7 %; Neutrophils # (A) 2.6 k/uL (1.3-7.7); Neutrophils % (A) 66 %; Platelet Count 220 k/uL (150-450); RBC 2.98 m/uL (4.30-5.90); RDW 14.6 % (11.5-15.5)
[2017-07-29 02:38] LABS: ALT 38 U/L (21-72); AST 47 U/L (17-59); Alkaline Phosphatase 120 U/L (38-126); Anion Gap 10 mmol/L; Blood Urea Nitrogen 14 mg/dL (9-20); Calcium 8.9 mg/dL (8.4-10.2); Carbon Dioxide 26 mmol/L (22-30); Chloride 108 mmol/L (98-107); Glucose 177 mg/dL (74-99); INR 1.2 (<1.2); Magnesium 1.7 mg/dL (1.6-2.3); Potassium 4.4 mmol/L (3.5-5.1); Sodium 144 mmol/L (137-145); Total Bilirubin 0.5 mg/dL (0.2-1.3); Total Protein 6.3 g/dL (6.3-8.2)
[2017-07-29 02:39] LABS: Partial Thromboplastin Time 23.9 sec (22.0-30.0); Prothrombin Time 11.1 sec (9.0-12.0)
[2017-07-29 02:49] LABS: Creatine Kinase 41 U/L (55-170)
[2017-07-29 03:02] LABS: Creatine Kinase MB 1.1 ng/mL (0.0-2.4); Troponin I <0.012 ng/mL (0.000-0.034)
--- NOTE | 2017-07-29 03:08 | ED ---
General Adult HPI - General Chief complaint: Shortness of Breath Stated complaint: respiratory distress Time Seen by Provider: 07/29/17 02:13 Source: patient, RN notes reviewed, old records reviewed Mode of arrival: EMS Limitations: no limitations - History of Present Illness Initial comments: This is a 82-year-old male to the ER for evaluation. This patient presents today for evaluation or shortness of breath as well as cough and congestion. Patient denies pain. Patient has history of COPD history of lung disease. Continues to smoke. Patient also has a history of atrial fibrillation recently diagnosed. Patient with some lower extremity edema. No travel history no fevers no sick contacts. Patient does have positive recent hospitalization. - Related Data Home Medications Medication Instructions Recorded Confirmed Naphazoline HCl/Glycerin [Clear 1 drop BOTH EYES DAILY PRN 10/24/16 07/29/17 Eyes Max Redness Rlf Drp] Spironolactone 50 mg PO DAILY 07/29/17 07/29/17 Previous Rx's Medication Instructions Recorded Budesonide-Formot 160-4.5 Mcg 2 puff INHALATION RT-BID #1 inhaler 10/27/16 [Symbicort 160-4.5 Mcg Inhaler] Albuterol Inhaler [Ventolin Hfa 1 - 2 puff INHALATION RT-QID #0 01/13/17 Inhaler] Digoxin [Lanoxin] 125 mcg PO DAILY #30 tab 01/13/17 Levothyroxine Sodium [Synthroid] 100 mcg PO DAILY@0630 #30 tab 01/13/17 Metoprolol Tartrate [Lopressor] 25 mg PO TID #90 tab 01/13/17 metFORMIN HCL [Glucophage] 250 mg PO AC-BID #60 tab 01/13/17 Cefuroxime Axetil [Ceftin] 500 mg PO BID #10 tab 08/02/17 Ipratropium [place] [Atrovent Hfa] 2 puff INHALATION QID #1 inhaler 08/02/17 Nicotine 14Mg/24Hr Patch [Habitrol] 1 patch TRANSDERM DAILY #42 patch 08/02/17 Nicotine 21Mg/24Hr Patch [Habitrol] 1 patch TRANSDERM DAILY #7 patch 08/02/17 Sennosides [Senokot] 8.6 mg PO BID tab 08/02/17 predniSONE 10 mg PO DAILY #30 tab 08/02/17 Allergies Allergy/AdvReac Type Severity Reaction Status Date / Time aspirin Allergy Rash/Hives Verified 07/29/17 07:26 Review of Systems ROS Statement: Those systems with pertinent positive or pertinent negative responses have been documented in the HPI. ROS Other: All systems not noted in ROS Statement are negative. Past Medical History Past Medical History: Cancer, Diabetes Mellitus, GERD/Reflux, Hypertension, Prostate Disorder, Thyroid Disorder Additional Past Medical History / Comment(s): thyroid cancer, skin cancer, ENLARGED PROSTATE,DIVERTICULAR DX,"HEART SKIPS A BEAT", prostate cancer, History of Any Multi-Drug Resistant Organisms: None Reported Past Surgical History: Bowel Resection Additional Past Surgical History / Comment(s): thyroidectomy, colonoscopy/ polypectomy, skin cancer removed, cataracts, bowel resection-d/t diverticulits Past Anesthesia/Blood Transfusion Reactions: No Reported Reaction Past Psychological History: No Psychological Hx Reported Smoking Status: Current every day smoker Past Alcohol Use History: Abuse Past Drug Use History: None Reported - Past Family History Father Family Medical History: Asthma, CVA/TIA Additional Family Medical History / Comment(s): pacemaker, smoker Mother Family Medical History: Chest Pain / Angina Additional Family Medical History / Comment(s): smoker General Exam Limitations: no limitations General appearance: alert, in no apparent distress, anxious Head exam: Present: atraumatic, normocephalic, normal inspection Eye exam: Present: normal appearance, PERRL, EOMI. Absent: scleral icterus, conjunctival injection, periorbital swelling ENT exam: Present: normal exam, mucous membranes moist Neck exam: Present: normal inspection. Absent: tenderness, meningismus, lymphadenopathy Respiratory exam: Present: respiratory distress, wheezes, accessory muscle use, decreased breath sounds, prolonged expiratory. Absent: rales, rhonchi, stridor Cardiovascular Exam: Present: tachycardia, irregular rhythm, normal heart sounds. Absent: systolic murmur, diastolic murmur, rubs, gallop, clicks GI/Abdominal exam: Present: soft, normal bowel sounds. Absent: distended, tenderness, guarding, rebound, rigid Extremities exam: Present: normal inspection, full ROM, normal capillary refill. Absent: tenderness, pedal edema, joint swelling, calf tenderness Back exam: Present: normal inspection Neurological exam: Present: alert, oriented X3, CN II-XII intact Psychiatric exam: Present: normal affect, normal mood Skin exam: Present: warm, dry, intact, normal color. Absent: rash Course Vital Signs 07/29/17 07/29/17 07/29/17 02:13 02:48 03:11 Temperature 97.0 F L Pulse Rate 103 H 99 Respiratory 20 22 20 Rate Blood Pressure 132/85 116/69 O2 Sat by Pulse 98 100 Oximetry 07/29/17 07/29/17 07/29/17 03:15 03:35 03:53 Temperature Pulse Rate 92 97 98 Respiratory Rate Blood Pressure O2 Sat by Pulse Oximetry EKG Findings - EKG Comments: EKG Findings:: EKG shows A. fib rate of 98, QRS 80, QTC 500 Medical Decision Making - Medical Decision Making 82 male to the ED co sob gib, patient with pna on xr will admit for breathing tx and abx, patient will also have h and h to eval gib - Lab Data Result diagrams: 08/02/17 09:05 07/30/17 09:10 Lab Results 07/29/17 07/29/17 07/29/17 Range/Units 02:15 02:15 02:15 WBC 4.0 (3.8-10.6) k/uL RBC 2.98 L (4.30-5.90) m/uL Hgb 11.0 L (13.0-17.5) gm/dL Hct 35.1 L (39.0-53.0) % MCV 118.0 H (80.0-100.0) fL MCH 36.8 H (25.0-35.0) pg MCHC 31.2 (31.0-37.0) g/dL RDW 14.6 (11.5-15.5) % Plt Count 220 (150-450) k/uL Neutrophils % 66 % Lymphocytes % 21 % Monocytes % 7 % Eosinophils % 3 % Basophils % 1 % Neutrophils # 2.6 (1.3-7.7) k/uL Lymphocytes # 0.8 L (1.0-4.8) k/uL Monocytes # 0.3 (0-1.0) k/uL Eosinophils # 0.1 (0-0.7) k/uL Basophils # 0.0 (0-0.2) k/uL Manual Slide Review Performed Macrocytosis Marked PT (9.0-12.0) sec INR (<1.2) APTT (22.0-30.0) sec Sodium 144 (137-145) mmol/L Potassium 4.4 (3.5-5.1) mmol/L Chloride 108 H (98-107) mmol/L Carbon Dioxide 26 (22-30) mmol/L Anion Gap 10 mmol/L BUN 14 (9-20) mg/dL Creatinine 1.00 (0.66-1.25) mg/dL Est GFR (MDRD) Af Amer >60 (>60 ml/min/1.73 sqM) Est GFR (MDRD) Non-Af >60 (>60 ml/min/1.73 sqM) Glucose 177 H (74-99) mg/dL Calcium 8.9 (8.4-10.2) mg/dL Magnesium 1.7 (1.6-2.3) mg/dL Total Bilirubin 0.5 (0.2-1.3) mg/dL AST 47 (17-59) U/L ALT 38 (21-72) U/L Alkaline Phosphatase 120 (38-126) U/L Total Creatine Kinase 41 L (55-170) U/L CK-MB (CK-2) 1.1 (0.0-2.4) ng/mL CK-MB (CK-2) Rel Index 2.7 Troponin I <0.012 (0.000-0.034) ng/mL NT-Pro-B Natriuret Pep pg/mL Total Protein 6.3 (6.3-8.2) g/dL Albumin 3.0 L (3.5-5.0) g/dL 07/29/17 07/29/17 Range/Units 02:15 02:15 WBC (3.8-10.6) k/uL RBC (4.30-5.90) m/uL Hgb (13.0-17.5) gm/dL Hct (39.0-53.0) % MCV (80.0-100.0) fL MCH (25.0-35.0) pg MCHC (31.0-37.0) g/dL RDW (11.5-15.5) % Plt Count (150-450) k/uL Neutrophils % % Lymphocytes % % Monocytes % % Eosinophils % % Basophils % % Neutrophils # (1.3-7.7) k/uL Lymphocytes # (1.0-4.8) k/uL Monocytes # (0-1.0) k/uL Eosinophils # (0-0.7) k/uL Basophils # (0-0.2) k/uL Manual Slide Review Macrocytosis PT 11.1 (9.0-12.0) sec INR 1.2 H (<1.2) APTT 23.9 (22.0-30.0) sec Sodium (137-145) mmol/L Potassium (3.5-5.1) mmol/L Chloride (98-107) mmol/L Carbon Dioxide (22-30) mmol/L Anion Gap mmol/L BUN (9-20) mg/dL Creatinine (0.66-1.25) mg/dL Est GFR (MDRD) Af Amer (>60 ml/min/1.73 sqM) Est GFR (MDRD) Non-Af (>60 ml/min/1.73 sqM) Glucose (74-99) mg/dL Calcium (8.4-10.2) mg/dL Magnesium (1.6-2.3) mg/dL Total Bilirubin (0.2-1.3) mg/dL AST (17-59) U/L ALT (21-72) U/L Alkaline Phosphatase (38-126) U/L Total Creatine Kinase (55-170) U/L CK-MB (CK-2) (0.0-2.4) ng/mL CK-MB (CK-2) Rel Index Troponin I (0.000-0.034) ng/mL NT-Pro-B Natriuret Pep 2510 pg/mL Total Protein (6.3-8.2) g/dL Albumin (3.5-5.0) g/dL - Radiology Data Radiology results: report reviewed (CXR is positive for pneumonia), image reviewed Disposition Clinical Impression: GI (gastrointestinal bleed), Diastolic CHF, acute on chronic, Rectal bleeding, COPD (chronic obstructive pulmonary disease), Atrial fibrillation with RVR Disposition: ADMITTED IP TO THIS [facility] Condition: Fair
[2017-07-29] MEDS ORDERED: PNEUMONIA PROTOCOL UTILIZED 1 EACH MISC PO PRN (03:17)
[2017-07-29] MEDS ORDERED: cefTRIAXone IN SWFI 1,000 MG/10 ML SYRINGE IVP STA (03:17)
--- NOTE | 2017-07-29 03:52 | XR ---
EXAM: XR Chest, 2 Views CLINICAL HISTORY: Reason: difficulty breathing TECHNIQUE: Frontal and lateral views of the chest. COMPARISON: 01/08/17 FINDINGS: Lungs: Right middle lobe and lower lobe airspace disease. Left basilar atelectasis. Blunting of the right costophrenic sulcus which could indicate a mild effusion. Small nodule in the periphery of the right lower lung which was also noted previously. Increased AP diameter of the lungs and chronic interstitial thickening consistent with chronic obstructive pulmonary disease. Pleural space: Unremarkable. No pneumothorax. Heart: Mild cardiomegaly. Mediastinum: Unremarkable. Bones/joints: Degenerative disc changes. Vasculature: Atherosclerosis of the aorta. Upper abdomen: Elevation of the right hemidiaphragm. IMPRESSION: 1. Right middle and lower lobe airspace disease which could indicate infiltrate such as pneumonia. Atelectasis is also a consideration with prominent elevation of the right hemidiaphragm now seen. Questionable scant right pleural effusion. If needed clinically, short interval follow-up radiography or further evaluation with CT can be obtained to assess for regional airway obstruction/mass. 2. Chronic changes as above.
[2017-07-29 04:36] VITALS: BMI 24.9
[2017-07-29] MEDS: SODIUM CHLORIDE 0.9% 1,000 ML IV SCH (05:42)
[2017-07-29] MEDS: IPRATROPIUM-ALBUTEROL 3 ML NEB INHALATION SCH ×4 (07:11→19:06)
[2017-07-29] MEDS ORDERED: ARTIFICIAL TEARS-HYPROMELLOSE DROPS 15 ML BTL BOTH EYES PRN (08:46)
[2017-07-29] MEDS: SPIRONOLACTONE 25 MG TAB PO SCH (10:56)
[2017-07-29] MEDS: DIGOXIN 125 MCG TAB PO SCH (10:57)
[2017-07-29] MEDS: NICOTINE 21MG/24HR PATCH TRANSDERM SCH (10:57)
[2017-07-29] MEDS: METOPROLOL TARTRATE 25 MG TAB PO SCH ×3 (10:57→21:47)
[2017-07-29] MEDS: metFORMIN 500 MG TAB PO SCH ×2 (10:57→17:40)
[2017-07-29] MEDS: ENOXAPARIN 40 MG/0.4 ML SYRINGE SQ SCH (10:58)
[2017-07-29] MEDS ORDERED: ALBUTEROL NEBULIZED 2.5 MG/3 ML INHALATION SCH (12:00)
--- NOTE | 2017-07-29 15:28 | HP ---
HISTORY AND PHYSICAL DATE OF ADMISSION: 07/29/2017 PRESENT COMPLAINT: Short of breath, cough. HISTORY OF PRESENTING COMPLAINT: This is an 82-year-old patient of Dr. Lay whose chronic stable medical conditions include diabetes, GERD, hypertension, hypothyroid, diverticulosis. The patient continues to smoke cigarettes. The patient started off with cough, wheezing, some short of breath with no sputum production and came in with shortness of breath also present. Diagnosed pneumonia, started on IV antibiotics. Patient also likes to drink his vodka every day. REVIEW OF SYSTEMS: CONSTITUTIONAL: Tired. HEENT: Some nasal stuffiness. RESPIRATORY: As above. CARDIOVASCULAR: None. GASTROINTESTINAL: None. GENITOURINARY: None. MUSCULOSKELETAL: Some chronic pain in the back. DERMATOLOGICAL: None. HEMATOLOGICAL: None. LYMPHATIC: None. PSYCHIATRY: None. NEUROLOGICAL: None. PAST MEDICAL HISTORY: Diabetes, GERD, hypertension, hypothyroid, thoracic spine osteoarthritis, atrial fibrillation, adhesion proctitis, diverticulosis. PAST SURGICAL HISTORY: Bowel resection, thyroidectomy, skin cancer removed, cataracts, bowel resection due to diverticulitis. SOCIAL HISTORY: Patient lives by himself. Uses a cane. Has a housekeeper caregiver. Smoking a pack a day for close to 70 years. Also drinks a quarter pint of vodka daily. FAMILY HISTORY: Stroke, asthma. HOME MEDICATIONS: 1. Glucophage 250 mg p.o. b.i.d. 2. Aldactone 50 mg p.o. daily. 3. Clear eyes 1 drop both eyes daily p.r.n. 4. Lopressor 25 p.o. t.i.d. 5. Synthroid 100 mcg p.o. daily. 6. Digoxin 125 mcg p.o. daily. 7. Symbicort 160/4.5 two puffs b.i.d. 8. Ventolin HFA 1 to 2 puffs q.i.d. ALLERGIES: ASPIRIN. PHYSICAL EXAMINATION: Vital signs on presentation temp 97, pulse 103, respiration 20, blood pressure 132/85, pulse ox 98% on 2 L. GENERAL APPEARANCE: Average built, sitting up, tired-appearing. EYES: Pupils equal, conjunctivae are normal. HEENT: Oral cavity normal. NECK: JVD not raised. Mass not palpable. RESPIRATORY: Effort increased. LUNGS: Diminished breath sounds. Expiratory wheezing, right basal crackles. CARDIOVASCULAR: First and second sounds. Heart sounds irregular. No edema. ABDOMEN: Soft, nontender. Liver and spleen not palpable. LYMPHATIC: No lymph nodes palpable in neck or axillae. PSYCHIATRY: Alert and oriented x3. Mood and affect normal. NEUROLOGICAL: Pupils equal, cranial nerves grossly intact. Power and sensation grossly intact. INVESTIGATIONS: White count 4, hemoglobin 11.0, platelets 220, potassium 4.4, BUN and creatinine is normal. Chest x-ray shows right middle lobe infiltrates. ASSESSMENT: 1. Right middle and lower lobe pneumonia, suspect gram-negative organism. 2. Acute chronic obstructive pulmonary disease exacerbation in a long-standing smoker. 3. Chronic nicotine dependence in a cigarette smoker. 4. Diabetes mellitus type 2, on oral hypoglycemic. 5. Gastroesophageal reflux disease. 6. Essential hypertension. 7. Hypothyroid. 8. Chronic thoracic spine osteoarthritis. 9. Persistent atrial fibrillation, given patient's chronic alcoholism. Patient not a candidate for anticoagulation. PLAN: 1. Patient started on IV ceftriaxone and Zithromax, nebulized bronchodilators, IV steroids. Home medications are resumed. Care was discussed with the patient. 2. Smoke cessation counseling was done to the patient. The patient is reminded that his COPD will never improve if he continues to smoke. Time spent with this in addition was more than 3 minutes. MMODL / IJN: [id number] /
[2017-07-29] MEDS: methylPREDNISolone SOD SUCCI 40 MG/ML 1 ML VIAL IV SCH (17:39)
[2017-07-29] MEDS: SYMBICORT 160-4.5 MCG INHALER INHALATION SCH (19:06)
[2017-07-30] MEDS: methylPREDNISolone SOD SUCCI 40 MG/ML 1 ML VIAL IV SCH ×4 (00:16→23:37)
[2017-07-30] MEDS: SODIUM CHLORIDE 0.9% 1,000 ML IV SCH (05:00)
[2017-07-30] MEDS: cefTRIAXone IN SWFI 1,000 MG/10 ML SYRINGE IVP SCH (05:46)
[2017-07-30] MEDS: LEVOTHYROXINE 100 MCG TAB PO SCH (05:47)
[2017-07-30] MEDS: IPRATROPIUM-ALBUTEROL 3 ML NEB INHALATION SCH ×4 (07:20→20:34)
[2017-07-30] MEDS: SYMBICORT 160-4.5 MCG INHALER INHALATION SCH ×2 (07:20→20:34)
[2017-07-30] MEDS: SPIRONOLACTONE 25 MG TAB PO SCH (08:36)
[2017-07-30] MEDS: metFORMIN 500 MG TAB PO SCH ×2 (08:37→16:46)
[2017-07-30] MEDS: METOPROLOL TARTRATE 25 MG TAB PO SCH ×3 (08:37→21:24)
[2017-07-30] MEDS: DIGOXIN 125 MCG TAB PO SCH (08:37)
[2017-07-30] MEDS: ENOXAPARIN 40 MG/0.4 ML SYRINGE SQ SCH (08:37)
[2017-07-30] MEDS ORDERED: AZITHROMYCIN 500 MG in SODIUM CHLORIDE 0.9% 250 ML IVPB SCH (09:00)
[2017-07-30 09:36] LABS: Anion Gap 13 mmol/L; Blood Urea Nitrogen 18 mg/dL (9-20); Calcium 9.1 mg/dL (8.4-10.2); Carbon Dioxide 24 mmol/L (22-30); Chloride 102 mmol/L (98-107); Glucose 435 mg/dL (74-99); Potassium 4.1 mmol/L (3.5-5.1); Sodium 139 mmol/L (137-145)
[2017-07-30 09:53] LABS: Basophils % (A) 0 %; Eosinophils % (A) 0 %; HCT 31.5 % (39.0-53.0); HGB 9.9 gm/dL (13.0-17.5); Hypochromasia Slight; Lymphocytes # (A) 0.4 k/uL (1.0-4.8); Lymphocytes % (A) 8 %; MCH 37.4 pg (25.0-35.0); MCHC 31.4 g/dL (31.0-37.0); MCV 119.1 fL (80.0-100.0); Macrocytosis Marked; Mean Platelet Volume 8.1; Monocytes # (A) 0.2 k/uL (0-1.0); Monocytes % (A) 4 %; Neutrophils # (A) 3.6 k/uL (1.3-7.7); Neutrophils % (A) 87 %; Platelet Count 189 k/uL (150-450); RBC 2.64 m/uL (4.30-5.90); RDW 14.3 % (11.5-15.5); WBC 4.2 k/uL (3.8-10.6)
--- NOTE | 2017-07-30 09:57 | XR ---
EXAMINATION TYPE: XR chest 2V DATE OF EXAM: 07/30/2017 HISTORY: pneumonia. REFERENCE: Previous study dated 07/29/2017. FINDINGS: There is a partial eventration of the right hemidiaphragm. There is a calcified granuloma a t the right lung base. There is right lower lobe airspace disease. This has partially improved. Left lung remains clear. The heart is mildly enlarged. IMPRESSION: 1. IMPROVING RIGHT LOWER LOBE PNEUMONIA. 2. MILD CARDIOMEGALY. 3. EVIDENCE OF OLD GRANULOMATOUS DISEASE.
[2017-07-30 10:13] LABS: Polychromasia Present
[2017-07-30] MEDS: NICOTINE 21MG/24HR PATCH TRANSDERM SCH (10:28)
[2017-07-30] MEDS ORDERED: ALPRAZolam 0.25 MG TAB PO PRN (13:56)
[2017-07-30] MEDS ORDERED: ALBUTEROL NEBULIZED 2.5 MG/3 ML INHALATION PRN (13:56)
--- NOTE | 2017-07-30 17:10 | P.PN ---
Progress Note - Text Progress Note Date: 07/30/17 DATE OF SERVICE: 07/30/2017 PRESENTING COMPLAINT: Short of breath, cough HISTORY OF PRESENT ILLNESS: 82-year-old male who presented to the emergency department with increasing cough wheezing some shortness of breath no sputum production, imaging revealed pneumonia started on antibiotics admitted for the same. INTERVAL HISTORY: 07/30/2017 Patient sitting up on the side of the bed appears comfortable. Somewhat cranky because he did not sleep well for a variety of reasons. Afebrile, antibiotics continue, tolerating his diet, eating about 50% of his meal, up with assistance , last BM prior to admission. REVIEW OF SYSTEMS: Done for constitutional ,cardiovascular, GI, pulmonary with relevant findings as above. CURRENT MEDICATIONS Albuterol, DuoNeb, Xanax 0.25 mg by mouth twice a day, artificial tears, azithromycin, Symbicort, Rocephin, Lanoxin, Lovenox, Synthroid, Glucophage, Solu -Medrol 40 mg IV every 8 hours, Lopressor 25 mg by mouth B 3 times a day, nicotine patch, Aldactone 51 g by mouth daily. PHYSICAL EXAM VITAL SIGNS: Temperature 97.3, pulse 86, respiratory rate 18, blood pressure 139/73, oxygen saturation 100% on 2 L. GENERAL APPEARANCE: Sitting on the edge of the bed, not in distress. EYES: Pupils equal. Conjunctiva normal. NECK: JVD not raised. Mass not palpable. RESPIRATORY: Respiratory effort mildly increased. Lungs diminished, expiratory wheezing right basilar crackles to auscultation. CARDIOVASCULAR: First and second sounds irregular. No edema. ABDOMEN: Soft. Liver and spleen not palpable. No tenderness. No mass palpable. PSYCHIATRY: Alert and oriented x3. Mood and affect normal. INVESTIGATIONS: Hemoglobin 9.9, BMP grossly unremarkable. ASSESSMENT: -Right middle and lower lobe pneumonia, suspect gram-negative organism, slow to respond. -Acute chronic obstructive pulmonate disease exacerbation in a long-standing smoker. -Chronic nicotine dependence is a cigarette smoker. -Diabetes mellitus type 2 on oral hypoglycemics. -Gastroesophageal reflux disease. -Essential hypertension. -Hypothyroidism. -Chronic thoracic spine osteoarthritis. -Persistent atrial fibrillation in a patient who is a chronic alcoholic, not a candidate for anticoagulation. PLAN: Continue current antibiotics of ceftriaxone and Zithromax nebulized bronchodilators IV steroids. Discharge planning possibly Tuesday based on patient condition. Plan of care discussed with the patient at the bedside he is in agreement. We'll follow closely. ONLINE ADVERTISING MANAGER statement: Patient was seen and examined by nurse practitioner Esha Lynn and all elements of the case discussed with attending Dr. Redman
--- NOTE | 2017-07-30 18:20 | PN ---
PROGRESS NOTE DATE OF SERVICE: 07/30/17 The patient was seen and examined by me. I discussed with nurse practitioner, Heriwaylon. This is a patient who is a smoker was admitted with pneumonia and COPD exacerbation. Still got a cough, sputum production, wheezing is only a shade better. Did tolerate some diet. PHYSICAL EXAMINATION: Temperature 97.8, pulse 106, respiratory 18, blood pressure 127/89, pulse ox 97% on 2 L. LUNGS: Diminished breath sounds. Prolonged expiration. Some wheezing. Cardiovascular: First and second sounds normal. Sitting up at the edge of the bed. INVESTIGATIONS: White count 4.2, hemoglobin 9.9. ASSESSMENT: 1. Multilobar pneumonia, slow to respond. 2. Acute chronic obstructive pulmonary disease exacerbation, long-standing smoker, slow to respond. PLAN: Continue patient on IV Solu-Medrol, IV antibiotics. Care was discussed with the patient. Follow. MMODL / IJN: [id number] /
[2017-07-31] MEDS: cefTRIAXone IN SWFI 1,000 MG/10 ML SYRINGE IVP SCH (06:36)
[2017-07-31] MEDS: LEVOTHYROXINE 100 MCG TAB PO SCH (06:37)
[2017-07-31] MEDS: SODIUM CHLORIDE 0.9% 1,000 ML IV SCH (06:37)
[2017-07-31] MEDS: SYMBICORT 160-4.5 MCG INHALER INHALATION SCH ×2 (07:14→19:54)
[2017-07-31] MEDS: IPRATROPIUM-ALBUTEROL 3 ML NEB INHALATION SCH ×4 (07:14→19:53)
[2017-07-31] MEDS: metFORMIN 500 MG TAB PO SCH ×2 (07:29→15:57)
[2017-07-31] MEDS: SPIRONOLACTONE 25 MG TAB PO SCH (07:29)
[2017-07-31] MEDS: NICOTINE 21MG/24HR PATCH TRANSDERM SCH (07:29)
[2017-07-31] MEDS: methylPREDNISolone SOD SUCCI 40 MG/ML 1 ML VIAL IV SCH ×3 (07:30→23:33)
[2017-07-31] MEDS: DIGOXIN 125 MCG TAB PO SCH (07:30)
[2017-07-31] MEDS: ENOXAPARIN 40 MG/0.4 ML SYRINGE SQ SCH (07:31)
[2017-07-31] MEDS: METOPROLOL TARTRATE 25 MG TAB PO SCH ×3 (07:31→21:20)
[2017-07-31 07:42] LABS: Glucose,Whole Blood 421 mg/dL (75-99)
[2017-07-31] MEDS: INSULIN ASPART 100 UNIT/ML 1 ML 10 ML VIAL SQ SCH ×4 (07:51→21:08)
[2017-07-31] MEDS: DIAZEPAM 5 MG TAB PO SCH ×3 (10:09→21:13)
[2017-07-31 11:53] LABS: Glucose,Whole Blood 190 mg/dL (75-99)
[2017-07-31 16:48] LABS: Glucose,Whole Blood 407 mg/dL (75-99)
--- NOTE | 2017-07-31 17:20 | P.PN ---
Progress Note - Text Progress Note Date: 07/31/17 DATE OF SERVICE: 07/31/2017 PRESENTING COMPLAINT: Short of breath, cough HISTORY OF PRESENT ILLNESS: 82-year-old male who presented to the emergency department with increasing cough wheezing some shortness of breath no sputum production, imaging revealed pneumonia started on antibiotics admitted for the same. INTERVAL HISTORY: 07/31/2017: Patient lying in bed is quite a bit more confused today than yesterday. Please see is located at his family home. Is aware of the year, doesn't really know the season. Delirium is likely due to alcohol withdrawal, appetite is fair eating about 50% of his meals, up with assistance, and has been getting up out of the bed without assistance, a bit impulsive. Last BM prior to admission 07/30/2017 Patient sitting up on the side of the bed appears comfortable. Somewhat cranky because he did not sleep well for a variety of reasons. Afebrile, antibiotics continue, tolerating his diet, eating about 50% of his meal, up with assistance , last BM prior to admission. REVIEW OF SYSTEMS: Done for constitutional ,cardiovascular, GI, pulmonary with relevant findings as above. CURRENT MEDICATIONS Albuterol, DuoNeb, Xanax 0.25 mg by mouth twice a day, artificial tears, azithromycin, Symbicort, Rocephin, Lanoxin, Lovenox, Synthroid, Glucophage, Solu -Medrol 40 mg IV every 8 hours, Lopressor 25 mg by mouth B 3 times a day, nicotine patch, Aldactone 51 g by mouth daily. PHYSICAL EXAM VITAL SIGNS: Temperature 97.7, pulse 104, respiratory rate 18, blood pressure 124/84, oxygen saturation 97% on 2 L GENERAL APPEARANCE: Lying in the bed, somewhat anxious and fidgety. EYES: Pupils equal. Conjunctiva normal. NECK: JVD not raised. Mass not palpable. RESPIRATORY: Respiratory effort mildly increased. Lungs diminished, expiratory wheezing right basilar crackles to auscultation. CARDIOVASCULAR: First and second sounds irregular. No edema. ABDOMEN: Soft. Liver and spleen not palpable. No tenderness. No mass palpable. PSYCHIATRY: Able to answer simple straightforward questions. Unable to identify the place, season, and confused about the year, recognized that he gave the wrong date and self corrected, Mood and affect somewhat confused and anxious. INVESTIGATIONS: Labs: Accu-Cheks noted ASSESSMENT: -Multilobar pneumonia, suspect gram-negative organism, slow to respond. -Acute Delirium secondary to alcohol withdrawl -Acute chronic obstructive pulmonary disease exacerbation in a long-standing smoker. -Chronic nicotine dependence is a cigarette smoker. -Diabetes mellitus type 2 on oral hypoglycemics. -Gastroesophageal reflux disease. -Essential hypertension. -Hypothyroidism. -Chronic thoracic spine osteoarthritis. -Persistent atrial fibrillation in a patient who is a chronic alcoholic, not a candidate for anticoagulation. PLAN: Patient has developed some delirium related to alcohol withdrawal Valium added to his regimen currently on a beta cole. Continue current antibiotics of ceftriaxone and Zithromax nebulized bronchodilators IV steroids. Discharge planning possibly Tuesday based on patient condition. Plan of care discussed with the patient at the bedside he is in agreement. We'll follow closely. PUBLICATIONS INSPECTOR statement: Patient was seen and examined by nurse practitioner Esha Lynn and all elements of the case discussed with attending Dr. Redman
[2017-07-31 19:45] LABS: Hemoglobin A1C 5.8 % (4.0-6.0)
[2017-07-31 20:15] LABS: Glucose,Whole Blood 66 mg/dL (75-99)
[2017-07-31] MEDS: SENNOSIDES 8.6 MG TAB PO SCH (21:08)
[2017-07-31 21:12] LABS: Glucose,Whole Blood 133 mg/dL (75-99)
--- NOTE | 2017-07-31 21:12 | PN ---
PROGRESS NOTE DATE OF SERVICE: 07/31/17. ATTENDING NOTE: The patient was seen and examined by me. Discussed with my nurse practitioner, Ms. Lynn. Patient admitted with pneumonia and patient is a bit confused today. Able to answer questions, but otherwise is more off. Breathing is slightly better. Did tolerate some diet. PHYSICAL EXAMINATION: On examination afebrile, pulse 100, respiration 18, blood pressure 120/78, Pulse ox 100% on 2 L. lungs decreased breath sounds. Psych: The patient thinks he is at the [facility], not sure about the year, he thinks this is in December. ASSESSMENT: 1. Multilobar pneumonia suspect gram-negative organism. 2. Acute chronic obstructive pulmonary disease exacerbation. 3. Acute delirium probably from underlying infection. PLAN: Continue patient on nebulized bronchodilators. Will cut back on Solu-Medrol that may contribute to the delirium. Will give a small dose of Risperdal at night today if required. The patient is already on Valium for DVT prophylaxis. MMODL / IJN: [id number] /
[2017-07-31] MEDS: BISACODYL 10 MG SUPP RECTAL SCH (21:13)
[2017-08-01] MEDS: cefTRIAXone IN SWFI 1,000 MG/10 ML SYRINGE IVP SCH (05:52)
[2017-08-01] MEDS: SODIUM CHLORIDE 0.9% 1,000 ML IV SCH (05:54)
[2017-08-01] MEDS: LEVOTHYROXINE 100 MCG TAB PO SCH (05:56)
[2017-08-01 06:51] LABS: Glucose,Whole Blood 115 mg/dL (75-99)
[2017-08-01] MEDS: DIGOXIN 125 MCG TAB PO SCH (07:14)
[2017-08-01] MEDS: SENNOSIDES 8.6 MG TAB PO SCH ×2 (07:14→22:15)
[2017-08-01] MEDS: METOPROLOL TARTRATE 25 MG TAB PO SCH ×3 (07:14→22:15)
[2017-08-01] MEDS: metFORMIN 500 MG TAB PO SCH ×2 (07:14→16:41)
[2017-08-01] MEDS: SPIRONOLACTONE 25 MG TAB PO SCH (07:14)
[2017-08-01] MEDS: NICOTINE 21MG/24HR PATCH TRANSDERM SCH (07:15)
[2017-08-01] MEDS: methylPREDNISolone SOD SUCCI 40 MG/ML 1 ML VIAL IV SCH ×2 (07:15→16:41)
[2017-08-01] MEDS: DIAZEPAM 5 MG TAB PO SCH ×2 (07:15→16:42)
[2017-08-01] MEDS: ENOXAPARIN 40 MG/0.4 ML SYRINGE SQ SCH (07:15)
[2017-08-01] MEDS: INSULIN ASPART 100 UNIT/ML 1 ML 10 ML VIAL SQ SCH ×4 (07:17→21:42)
[2017-08-01] MEDS: SYMBICORT 160-4.5 MCG INHALER INHALATION SCH ×2 (07:35→19:37)
[2017-08-01] MEDS: IPRATROPIUM-ALBUTEROL 3 ML NEB INHALATION SCH ×4 (07:35→19:37)
[2017-08-01 11:12] LABS: Glucose,Whole Blood 171 mg/dL (75-99)
--- NOTE | 2017-08-01 16:59 | P.PN ---
Progress Note - Text Progress Note Date: 08/01/17 DATE OF SERVICE: 08/01/2017 PRESENTING COMPLAINT: Short of breath, cough HISTORY OF PRESENT ILLNESS: 82-year-old male who presented to the emergency department with increasing cough wheezing some shortness of breath no sputum production, imaging revealed pneumonia started on antibiotics admitted for the same. INTERVAL HISTORY: 08/01/2017: Patient lying in bed delirium is clearing a bit,still struggles with the date and the season,cough present, occasional sputum production.oxygentherapy continues, short of breath with minimal exertion, able to get up and about with a walker and assistance. Appetite is slowly improving eating about 50% of his meals. Last BM08/01/2017. 07/31/2017: Patient lying in bed is quite a bit more confused today than yesterday. states he is located at his family home. Is aware of the year, doesn't really know the season. Delirium is likely due to alcohol withdrawal,continues to have a cough, occasionally produces some sputum, appetite is fair eating about 50% of his meals, up with assistance, and has been getting up out of the bed without assistance, a bit impulsive. Last BM prior to admission 07/30/2017 Patient sitting up on the side of the bed appears comfortable. Somewhat cranky because he did not sleep well for a variety of reasons. Afebrile, antibiotics continue, tolerating his diet, eating about 50% of his meal, up with assistance , last BM prior to admission. REVIEW OF SYSTEMS: Done for constitutional ,cardiovascular, GI, pulmonary with relevant findings as above. CURRENT MEDICATIONS Albuterol, DuoNeb, Xanax 0.25 mg by mouth twice a day, artificial tears, azithromycin, Symbicort, Rocephin, Lanoxin, Lovenox, Synthroid, Glucophage, Solu -Medrol 40 mg IV every 8 hours, Lopressor 25 mg by mouth B 3 times a day, nicotine patch, Aldactone 51 g by mouth daily. PHYSICAL EXAM VITAL SIGNS: temperature 97.3, pulse 84, respiratory rate 18, blood pressure 125/77, oxygen saturation 100% on 2 L nasal cannula. GENERAL APPEARANCE: Lying in the bed, somewhat anxious and fidgety. EYES: Pupils equal. Conjunctiva normal. NECK: JVD not raised. Mass not palpable. RESPIRATORY: Respiratory effort mildly increased. Lungs diminished, expiratory wheezing right basilar crackles to auscultation. CARDIOVASCULAR: First and second sounds irregular. No edema. ABDOMEN: Soft. Liver and spleen not palpable. No tenderness. No mass palpable. PSYCHIATRY: Able to answer simple straightforward questions. Unable to identify the season, and confused about the year, recognized that he gave the wrong date and self corrected, Mood and affect mildly confused and anxious. INVESTIGATIONS: Labs: Accu-Cheks noted ASSESSMENT: -Multilobar pneumonia, suspect gram-negative organism, slow to respond. -Acute Delirium secondary to alcohol withdrawl -Acute chronic obstructive pulmonary disease exacerbation in a long-standing smoker. -Chronic nicotine dependence is a cigarette smoker. -Diabetes mellitus type 2 on oral hypoglycemics. -Gastroesophageal reflux disease. -Essential hypertension. -Hypothyroidism. -Chronic thoracic spine osteoarthritis. -Persistent atrial fibrillation in a patient who is a chronic alcoholic, not a candidate for anticoagulation. PLAN: we'll continue Valium and beta cole for symptoms related to alcohol withdrawal. Continue current antibiotics of ceftriaxone and Zithromax nebulized bronchodilators IV steroids. Discharge planning next 24-48 hours based on patient condition. Plan of care discussed with the patient at the bedside he is in agreement. We'll follow closely. [facility]INE statement: Patient was seen and examined by nurse practitioner Esha Lynn and all elements of the case discussed with attending Dr. Redman
[2017-08-01] MEDS ORDERED: BUDESONIDE 1 MG/2 ML NEBU INHALATION SCH (17:15)
[2017-08-01 17:17] LABS: Glucose,Whole Blood 173 mg/dL (75-99)
[2017-08-01 20:11] LABS: Glucose,Whole Blood 89 mg/dL (75-99)
--- NOTE | 2017-08-01 20:58 | PN ---
PROGRESS NOTE DATE OF SERVICE: 08/01/2017. ATTENDING NOTE: This patient was seen and examined by me. I discussed the case with the nurse practitioner Ms. Lynn. Patient was admitted with COPD exacerbation, pneumonia; also had alcohol withdrawal. The patient is doing better. Delirium is actually improving. Answers questions a bit more appropriately. Tolerating a diet. PHYSICAL EXAMINATION: Temperature 97.3, pulse 84, respiration 18, blood pressure 125/77, pulse ox 100% on 2 L. LUNGS: Diminished breath sounds. PSYCH: Patient knows that he is in the hospital. Answering questions more appropriately. ASSESSMENT: 1. Acute chronic obstructive pulmonary disease exacerbation and pneumonia, clinically improving. 2. Acute delirium secondary to alcohol, improving. PLAN: Will cut back on the Valium to 1 mg three times a day. MMODL / IJN: [id number] /
[2017-08-01] MEDS: DIAZEPAM 2 MG TAB PO SCH (22:14)
[2017-08-01] MEDS: BISACODYL 10 MG SUPP RECTAL SCH (22:14)
[2017-08-02] MEDS: methylPREDNISolone SOD SUCCI 40 MG/ML 1 ML VIAL IV SCH ×3 (00:47→15:52)
[2017-08-02] MEDS: SODIUM CHLORIDE 0.9% 1,000 ML IV SCH (02:50)
[2017-08-02] MEDS: cefTRIAXone IN SWFI 1,000 MG/10 ML SYRINGE IVP SCH (05:54)
[2017-08-02] MEDS: LEVOTHYROXINE 100 MCG TAB PO SCH (06:20)
[2017-08-02 07:08] LABS: Glucose,Whole Blood 181 mg/dL (75-99)
[2017-08-02] MEDS: ENOXAPARIN 40 MG/0.4 ML SYRINGE SQ SCH (07:36)
[2017-08-02] MEDS: DIGOXIN 125 MCG TAB PO SCH (07:37)
[2017-08-02] MEDS: METOPROLOL TARTRATE 25 MG TAB PO SCH ×2 (07:37→15:52)
[2017-08-02] MEDS: SENNOSIDES 8.6 MG TAB PO SCH (07:37)
[2017-08-02] MEDS: DIAZEPAM 2 MG TAB PO SCH ×2 (07:37→17:49)
[2017-08-02] MEDS: SPIRONOLACTONE 25 MG TAB PO SCH (07:37)
[2017-08-02] MEDS: NICOTINE 21MG/24HR PATCH TRANSDERM SCH (07:38)
[2017-08-02] MEDS: IPRATROPIUM-ALBUTEROL 3 ML NEB INHALATION SCH ×3 (07:51→17:19)
[2017-08-02] MEDS: INSULIN ASPART 100 UNIT/ML 1 ML 10 ML VIAL SQ SCH ×3 (07:52→17:47)
[2017-08-02] MEDS: metFORMIN 500 MG TAB PO SCH ×2 (07:56→17:46)
[2017-08-02 07:59] VITALS: RESP 18
[2017-08-02] MEDS: SYMBICORT 160-4.5 MCG INHALER INHALATION SCH (08:01)
[2017-08-02 09:28] LABS: Basophils % (A) 0 %; Eosinophils % (A) 0 %; HCT 31.3 % (39.0-53.0); HGB 9.7 gm/dL (13.0-17.5); Hypochromasia Slight; Lymphocytes # (A) 0.3 k/uL (1.0-4.8); Lymphocytes % (A) 6 %; MCH 36.1 pg (25.0-35.0); MCHC 31.1 g/dL (31.0-37.0); MCV 116.1 fL (80.0-100.0); Macrocytosis Marked; Mean Platelet Volume 8.6; Monocytes # (A) 0.2 k/uL (0-1.0); Monocytes % (A) 4 %; Neutrophils # (A) 3.9 k/uL (1.3-7.7); Neutrophils % (A) 89 %; Platelet Count 201 k/uL (150-450); RDW 14.2 % (11.5-15.5); WBC 4.3 k/uL (3.8-10.6)
[2017-08-02 10:23] LABS: Anisocytosis (M) Present; Poikilocytosis (M) Present
[2017-08-02 11:33] LABS: Glucose,Whole Blood 337 mg/dL (75-99)
[2017-08-02 15:18] VITALS: BP 125/89; TEMP 97.3
[2017-08-02 16:59] LABS: Glucose,Whole Blood 338 mg/dL (75-99)
[2017-08-02 17:30] VITALS: PULSE 84
--- NOTE | 2017-08-03 09:36 | DS ---
DISCHARGE SUMMARY DATE OF ADMISSION: 07/29/2017 DATE OF DISCHARGE: 08/02/2017 FINAL DIAGNOSES: 1. Multilobar pneumonia suspect gram-negative organism, present on admission. 2. Acute delirium tremens from alcohol withdrawal. 3. Acute chronic obstructive pulmonary disease exacerbation in a long-standing smoker, present on admission. 4. Chronic nicotine dependence, patient is a cigarette smoker. 5. Diabetes mellitus type 2 on oral hypoglycemic. 6. Gastroesophageal reflux disease. 7. Essential hypertension. 8. Hypothyroidism. 9. Chronic thoracic spine osteoarthritis. 10.Persistent atrial fibrillation, patient not a candidate for anticoagulation. HOSPITAL COURSE: This patient a long-standing smoker also drinks alcohol presented with pneumonia, COPD exacerbation and had gone into DTs. Responded well to Valium. Doing better at the time of discharge. Overall prognosis not good. ON EXAMINATION: LUNGS: Decreased breath sounds. PSYCH Alert and oriented x3. Repeat hemoglobin is 9.7. Macrocytosis from chronic alcoholism. DISCHARGE MEDICATIONS: 1. Clear eyes max redness 1 drop both eyes daily p.r.n. 2. Symbicort 160/4.5 two puffs b.i.d. 3. Ventolin HFA 1 or 2 puffs q.i.d. 4. Digoxin 125 mcg a day. 5. Synthroid 100 mcg a day. 6. Lopressor 25 p.o. t.i.d. 7. Glucophage 250 mg . 8. Aldactone 50 mg a day. 9. Ceftin 500 mg p.o. b.i.d. 10 tablets. 10.Atrovent HFA 2 puffs q.i.d. 11.Nicotine patch. 12.Senokot 8.6 mg b.i.d. 13.Prednisone taper. Follow up with Dr. Gee in 3 days. LABS: CBC in 3 to 5 days. DISPOSITION: Home. MMODL / IJN: [id number] /
== END 2017-08-02 19:35 | disposition home or self-care (01) | DRG 178 ==
LOC: EC 02:11 → 5MS5E 03:17
PROVIDERS: ADMIT Hospitalist; ATTEND Hospitalist
DX: J15.6 Pneumonia due to other Gram-negative bacteria (principal); J44.1 Chronic obstructive pulmonary disease with (acute) exacerbation; F10.221 Alcohol dependence with intoxication delirium; I48.1 Persistent atrial fibrillation; I11.0 Hypertensive heart disease with heart failure; I50.32 Chronic diastolic (congestive) heart failure; D75.89 Other specified diseases of blood and blood-forming organs; E11.9 Type 2 diabetes mellitus without complications; J44.0 Chronic obstructive pulmonary disease with (acute) lower respiratory infection; E89.0 Postprocedural hypothyroidism; F10.231 Alcohol dependence with withdrawal delirium; N40.0 Benign prostatic hyperplasia without lower urinary tract symptoms; F17.210 Nicotine dependence, cigarettes, uncomplicated; K57.90 Diverticulosis of intestine, part unspecified, without perforation or abscess without bleeding; K21.9 Gastro-esophageal reflux disease without esophagitis; M47.814 Spondylosis without myelopathy or radiculopathy, thoracic region; Z88.8 Allergy status to other drugs, medicaments and biological substances; Z79.84 Long term (current) use of oral hypoglycemic drugs; Z71.6 Tobacco abuse counseling; Z79.899 Other long term (current) drug therapy; Z79.51 Long term (current) use of inhaled steroids; Z82.5 Family history of asthma and other chronic lower respiratory diseases; Z82.3 Family history of stroke; Z85.828 Personal history of other malignant neoplasm of skin; Z90.49 Acquired absence of other specified parts of digestive tract; Z85.850 Personal history of malignant neoplasm of thyroid; Z98.41 Cataract extraction status, right eye; Z98.42 Cataract extraction status, left eye; Z85.46 Personal history of malignant neoplasm of prostate
CPT/HCPCS: 36415; 71046; 80048; 80053; 82550; 82553; 83036; 83735; 83880; 84484; 85025; 85610; 85730; 87040; 87070; 87205; 93005; 94640; 94644; 94760; 96361; 96365; 96375; 99285

== ENCOUNTER 2017-08-14 18:49 | Inpatient (IN) | payer MEDICARE, OTHER ==
[~2017-08-14 18:49] MED LIST changes: -LACTATED RINGERS 1,000 ML IV SCH; +THIAMINE 100 MG TAB PO SCH
[2017-08-14] MEDS ORDERED: DIPH,PERTUS(ACELL)TETVAC-LF 0.5 ML VIAL IM ONE (19:36)
--- NOTE | 2017-08-14 19:36 | ED ---
General Adult HPI - General Chief complaint: Fall Stated complaint: ETOH/Fall Time Seen by Provider: 08/14/17 18:54 Source: patient, EMS, RN notes reviewed Mode of arrival: EMS Limitations: no limitations - History of Present Illness Initial comments: 82-year-old male presents status post fall with chief complaint right knee pain.patient states his right leg has been weak for the past 2 years. This is what is causing him to fall. He denies any other injury in the fall. He was able to ambulate after this fall. Patient was recently admitted to the hospital with pneumonia, he denies fever, states he has had a productive cough which he believes is no improvement.denies chest pain. Patient states he did not hit his head, denies any blood thinners. Patient does appear somewhat intoxicated on initial evaluation and admits to drinking vodka. According to EMS patient has had multiple falls.patient also reports bilateral lower extremity edema which is chronic. - Related Data Home Medications Medication Instructions Recorded Confirmed Naphazoline HCl/Glycerin [Clear 1 drop BOTH EYES DAILY PRN 10/24/16 08/14/17 Eyes Max Redness Rlf Drp] Spironolactone 50 mg PO DAILY 07/29/17 08/14/17 Previous Rx's Medication Instructions Recorded Budesonide-Formot 160-4.5 Mcg 2 puff INHALATION RT-BID #1 inhaler 10/27/16 [Symbicort 160-4.5 Mcg Inhaler] Albuterol Inhaler [Ventolin Hfa 1 - 2 puff INHALATION RT-QID #0 01/13/17 Inhaler] Digoxin [Lanoxin] 125 mcg PO DAILY #30 tab 01/13/17 Levothyroxine Sodium [Synthroid] 100 mcg PO DAILY@0630 #30 tab 01/13/17 Metoprolol Tartrate [Lopressor] 25 mg PO TID #90 tab 01/13/17 metFORMIN HCL [Glucophage] 250 mg PO AC-BID #60 tab 01/13/17 Allergies Allergy/AdvReac Type Severity Reaction Status Date / Time aspirin Allergy Rash/Hives Verified 08/14/17 19:14 Review of Systems ROS Statement: Those systems with pertinent positive or pertinent negative responses have been documented in the HPI. ROS Other: All systems not noted in ROS Statement are negative. Past Medical History Past Medical History: Cancer, Diabetes Mellitus, GERD/Reflux, Hypertension, Prostate Disorder, Thyroid Disorder Additional Past Medical History / Comment(s): thyroid cancer, skin cancer, ENLARGED PROSTATE,DIVERTICULAR DX,"HEART SKIPS A BEAT", prostate cancer, History of Any Multi-Drug Resistant Organisms: None Reported Past Surgical History: Bowel Resection Additional Past Surgical History / Comment(s): thyroidectomy, colonoscopy/ polypectomy, skin cancer removed, cataracts, bowel resection-d/t diverticulits Past Anesthesia/Blood Transfusion Reactions: No Reported Reaction Past Psychological History: No Psychological Hx Reported Smoking Status: Current every day smoker Past Alcohol Use History: Abuse Past Drug Use History: None Reported - Past Family History Father Family Medical History: Asthma, CVA/TIA Additional Family Medical History / Comment(s): pacemaker, smoker Mother Family Medical History: Chest Pain / Angina Additional Family Medical History / Comment(s): smoker General Exam Limitations: no limitations General appearance: alert, in no apparent distress, appears intoxicated Head exam: Present: atraumatic, normocephalic Eye exam: Present: normal appearance, PERRL ENT exam: Present: normal exam Neck exam: Present: normal inspection. Absent: tenderness, meningismus Respiratory exam: Present: normal lung sounds bilaterally, wheezes, rhonchi. Absent: respiratory distress Cardiovascular Exam: Present: regular rate, normal rhythm GI/Abdominal exam: Present: soft. Absent: distended, tenderness Extremities exam: Present: tenderness ( minimal swelling), pedal edema (2+ pitting edema bilaterally), joint swelling Neurological exam: Present: alert, oriented X3, CN II-XII intact. Absent: motor sensory deficit Psychiatric exam: Present: normal affect, normal mood Skin exam: Present: warm, dry, intact, cyanosis. Absent: diaphoretic Course Vital Signs 08/14/17 08/14/17 18:50 19:30 Temperature 97.8 F Pulse Rate 106 H 99 Respiratory 16 20 Rate Blood Pressure 138/80 144/80 O2 Sat by Pulse 96 99 Oximetry Medical Decision Making - Medical Decision Making 82-year-old male presenting with multiple falls, complaining of right knee pain status post fall, and cough and dyspnea. Patient does have history of COPD, he is alcoholic. X-rays are obtained of the right knee which is negative for acute bony abnormality, pelvis x-ray negative for fracture dislocation CT of the head is negative for intracranial hemorrhage, CT cervical spine negative for fracture or subluxation. X-ray of the chest shows a right lower lobe pneumonia with pleural effusion, this is worse compared to previous x-ray on July 30. Laboratory studies reveal white blood cell count 7.8, hemoglobin 10.5 which is improved from previous, electrolytes within normal limits. Serum alcohol is negative. Patient will be admitted for further antibiotic treatment of healthcare associated pneumonia and treatment of COPD. - Lab Data Result diagrams: 08/14/17 19:30 08/14/17 19:30 Lab Results 08/14/17 08/14/17 Range/Units 19:30 19:30 WBC 7.8 (3.8-10.6) k/uL RBC 2.94 L (4.30-5.90) m/uL Hgb 10.5 L (13.0-17.5) gm/dL Hct 32.9 L (39.0-53.0) % MCV 111.7 H (80.0-100.0) fL MCH 35.7 H (25.0-35.0) pg MCHC 31.9 (31.0-37.0) g/dL RDW 15.4 (11.5-15.5) % Plt Count 221 (150-450) k/uL Neutrophils % 89 % Lymphocytes % 7 % Monocytes % 3 % Eosinophils % 1 % Basophils % 0 % Neutrophils # 6.9 (1.3-7.7) k/uL Lymphocytes # 0.5 L (1.0-4.8) k/uL Monocytes # 0.2 (0-1.0) k/uL Eosinophils # 0.1 (0-0.7) k/uL Basophils # 0.0 (0-0.2) k/uL Hypochromasia Slight Macrocytosis Marked Sodium 138 (137-145) mmol/L Potassium 3.9 (3.5-5.1) mmol/L Chloride 101 (98-107) mmol/L Carbon Dioxide 23 (22-30) mmol/L Anion Gap 14 mmol/L BUN 11 (9-20) mg/dL Creatinine 0.69 (0.66-1.25) mg/dL Est GFR (MDRD) Af Amer >60 (>60 ml/min/1.73 sqM) Est GFR (MDRD) Non-Af >60 (>60 ml/min/1.73 sqM) Glucose 202 H (74-99) mg/dL Calcium 9.8 (8.4-10.2) mg/dL Total Bilirubin 0.8 (0.2-1.3) mg/dL AST 30 (17-59) U/L ALT 40 (21-72) U/L Alkaline Phosphatase 94 (38-126) U/L Total Protein 6.7 (6.3-8.2) g/dL Albumin 3.8 (3.5-5.0) g/dL Serum Alcohol <10 mg/dL Disposition Clinical Impression: Fall, Contusion of right knee, Healthcare-associated pneumonia, EtOH dependence , COPD (chronic obstructive pulmonary disease) Disposition: ADMITTED IP TO THIS [facility] Condition: Stable Referrals: Jesse Gee MD [Primary Care Provider] - 1-2 days Decision to Admit Reason: Admit from EC Decision Date: 08/14/17 Decision Time: 20:58
[2017-08-14 19:51] LABS: Basophils % (A) 0 %; Eosinophils # (A) 0.1 k/uL (0-0.7); Eosinophils % (A) 1 %; HCT 32.9 % (39.0-53.0); HGB 10.5 gm/dL (13.0-17.5); Hypochromasia Slight; Lymphocytes # (A) 0.5 k/uL (1.0-4.8); Lymphocytes % (A) 7 %; MCH 35.7 pg (25.0-35.0); MCHC 31.9 g/dL (31.0-37.0); MCV 111.7 fL (80.0-100.0); Macrocytosis Marked; Mean Platelet Volume 8.8; Monocytes # (A) 0.2 k/uL (0-1.0); Monocytes % (A) 3 %; Neutrophils # (A) 6.9 k/uL (1.3-7.7); Neutrophils % (A) 89 %; Platelet Count 221 k/uL (150-450); RBC 2.94 m/uL (4.30-5.90); RDW 15.4 % (11.5-15.5); WBC 7.8 k/uL (3.8-10.6)
[2017-08-14 20:03] LABS: ALT 40 U/L (21-72); AST 30 U/L (17-59); Albumin 3.8 g/dL (3.5-5.0); Alcohol <10 mg/dL; Alkaline Phosphatase 94 U/L (38-126); Anion Gap 14 mmol/L; Blood Urea Nitrogen 11 mg/dL (9-20); Calcium 9.8 mg/dL (8.4-10.2); Carbon Dioxide 23 mmol/L (22-30); Chloride 101 mmol/L (98-107); Glucose 202 mg/dL (74-99); Potassium 3.9 mmol/L (3.5-5.1); Sodium 138 mmol/L (137-145); Total Bilirubin 0.8 mg/dL (0.2-1.3); Total Protein 6.7 g/dL (6.3-8.2)
--- NOTE | 2017-08-14 20:07 | CT ---
EXAMINATION TYPE: CT brain oli wo con DATE OF EXAM: 08/14/2017 HISTORY: Fall with head and neck injury. CT DLP: 1116.4 mGycm Automated exposure control for dose reduction was used. TECHNIQUE: CT scan of the head and cervical spine are performed without contrast. FINDINGS: There is no acute intracranial hemorrhage, mass effect, or midline shift identified. The ventricles and sulci are within normal limits in size. The globes are intact and the visualized sin uses are clear. Cervical spine is visualized in its entirety from C1 through upper thoracic levels and demonstrates s atisfactory alignment without evidence of acute fracture or dislocation. Chronic white matter ischemi c changes as well as marked cortical atrophy is noted. 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 No mass mass effect or midline shift is identified. There is no acute hemorrhage or major vessel territorial infarct. Paranasal sinuses calvarium and mastoid air cells are unremarkable. Degenerativ e changes are noted at several levels due to endplate spurring as well as facet disease. Prevertebral soft tissue appears within normal limits. The C1-C2 articulation is unremarkable. There is incidental note of a small right-sided pleural effusion. IMPRESSION: 1. There is no acute fracture or dislocation evident in the cervical spine. 2. No acute intracranial hemorrhage, mass effect, or midline shift is seen. 3. Small right-sided pleural effusion.
--- NOTE | 2017-08-14 20:19 | XR ---
EXAMINATION TYPE: XR chest 2V DATE OF EXAM: 08/14/2017 COMPARISON: July 30, 2017 HISTORY: Chest pain TECHNIQUE: Frontal and lateral views of the chest are obtained. FINDINGS: Airspace opacity is identified in the right lower lobe which is increased since the previo us study. There is a small right-sided pleural effusion as well as elevation eventration right hemidi aphragm. There is a calcified granuloma identified at the right lung base. The cardiac silhouette is within normal limits. IMPRESSION: Pneumonia in the right lower lobe as well as a small right-sided pleural effusion.
--- NOTE | 2017-08-14 20:22 | XR ---
EXAMINATION TYPE: XR pelvis AP view DATE OF EXAM: 08/14/2017 CLINICAL HISTORY: Fall with pain. TECHNIQUE: A single AP view of the pelvis is obtained. COMPARISON: November 16, 2016 FINDINGS: No definite acute displaced fractures identified. Lucency is identified in the intertrochan teric region of the right femur. This could be due to overlying soft tissue. Surgical clips are ident ified in the pelvis. Soft tissue density is seen in the pelvis which is felt to be the urinary bladde r. Vascular calcifications are also noted. IMPRESSION: No definite acute displaced fractures identified. If there remains clinical concern for fracture kacie tional views can be obtained.
--- NOTE | 2017-08-14 20:23 | XR ---
Exam: Right knee complete 4 views right knee were obtained. HISTORY: Right knee pain. FINDINGS: No acute displaced fractures identified. Joint spacing appears to be maintained in all 3 compartments . There is no suprapatellar joint effusion. There is extensive vascular calcifications noted. There i s also mild diffuse osteopenia. IMPRESSION: No acute abnormality.
[2017-08-14] MEDS ORDERED: LEVOFLOXACIN 500MG-D5W PMX 500 MG in DEXTROSE/WATER 1 100ML.BAG IVPB STA (20:52)
[2017-08-14] MEDS ORDERED: VANCOMYCIN IV PER PHARMACY 1 EACH MISC MISCELLANE PRN (20:52)
[2017-08-14] MEDS ORDERED: IPRATROPIUM-ALBUTEROL 3 ML NEB INHALATION PRN (20:53)
[2017-08-14] MEDS ORDERED: THIAMINE 100 MG/ML 2 ML VIAL IM STA (20:53)
[2017-08-14] MEDS ORDERED: LORazepam 2 MG/ML INJ IV PRN ×2 (20:53)
[2017-08-14] MEDS ORDERED: VANCOMYCIN 1,500 MG in SODIUM CHLORIDE 0.9% 250 ML IVPB ONE (21:15)
[2017-08-14] MEDS ORDERED: SODIUM CHLORIDE 0.9% 500 ML IV ONE (21:19)
[2017-08-14] MEDS: SODIUM CHLORIDE 0.9% 1,000 ML IV SCH (21:20)
[2017-08-14 21:25] LABS: INR 1.1 (<1.2); Partial Thromboplastin Time 23.2 sec (22.0-30.0); Prothrombin Time 10.4 sec (9.0-12.0)
[2017-08-14] MEDS: METOPROLOL TARTRATE 25 MG TAB PO SCH (22:04)
[2017-08-15] MEDS: SODIUM CHLORIDE 0.9% 1,000 ML IV SCH ×2 (04:57→18:34)
[2017-08-15] MEDS: IPRATROPIUM-ALBUTEROL 3 ML NEB INHALATION SCH ×4 (07:30→19:09)
[2017-08-15] MEDS: VANCOMYCIN 1,500 MG in SODIUM CHLORIDE 0.9% 250 ML IVPB SCH ×2 (09:13→21:03)
[2017-08-15] MEDS: metFORMIN 500 MG TAB PO SCH ×2 (09:29→18:13)
[2017-08-15] MEDS: predniSONE 20 MG TAB PO SCH (09:31)
[2017-08-15] MEDS: SPIRONOLACTONE 25 MG TAB PO SCH (09:31)
[2017-08-15] MEDS: METOPROLOL TARTRATE 25 MG TAB PO SCH ×3 (09:31→21:07)
[2017-08-15] MEDS: LEVOTHYROXINE 100 MCG TAB PO SCH (09:31)
[2017-08-15] MEDS: DIGOXIN 125 MCG TAB PO SCH (09:32)
[2017-08-15 11:39] LABS: Glucose,Whole Blood 203 mg/dL (75-99)
--- NOTE | 2017-08-15 11:49 | P.CRDCN ---
History of Present Illness Consult date: 08/15/17 History of present illness: Mr. Chakraborty is a pleasant 82-year-old male past medical history significant for chronic persistent atrial fibrillation with controlled ventricular response not on long-term anticoagulation secondary to GI bleed, ETOH abuse and frequent falls. He also has diabetes mellitus, hypertension, gastroesophageal reflux disease, COPD, chronic tobacco use and daily alcohol abuse. He follows with Dr. Aguillon in the office. We have been consulted to see him secondary to atrial fibrillation. He apparently had a fall at home that was mechanical in nature and possible related to ETOH intoxication. He denies having dizziness, chest pain, shortness of breath, palpitations, diaphoresis, nausea or vomiting prior to falling. He states he got up to turn off the stove and tripped and fell in the doorway onto his right side. At the time of my exam he is seen sitting up in bed in no acute distress. He continues to deny chest pain, shortness of breath, dizziness, palpitations, diaphoresis, nausea or vomiting. EKG on arrival reveals atrial fibrillation with no acute changes with digitalis effect and prolonged QT. Consistent with old EKG. Chest xray positive for right lower lobe pneumonia as well as small right sided pleural effusion. Laboratory data reviewed, hemoglobin 10.5, platelets 221, potassium 3.9, creatinine 0.69, lactic acid on admission 3.1 repeat 1.8. Current cardiac medications include spironolactone 50 mg daily, Lopressor 25 mg 3 times a day and digoxin 125 g daily. Most recent echocardiogram performed 12/2016 reveals preserved LV systolic function with EF 55-60%, mildly enlarged RV, moderately enlarged LA, moderate MR and TR, mild pulmonary hypertension with RVSP 43.33 mmHg and mild aortic stenosis. Review of Systems At the time of my exam: CONSTITUTIONAL: Denies fever. Denies chills. EYES: Denies blurred vision. Denies vision changes. Denies eye pain. EARS, NOSE, MOUTH & THROAT: Denies headache. Denies sore throat. Denies ear pain. CARDIOVASCULAR: Denies chest pain. Denies shortness of breath. Denies orthopnea. Denies PND. Denies palpitations. RESPIRATORY: Denies cough. GASTROINTESTINAL: Denies abdominal pain. Denies diarrhea. Denies constipation. Denies nausea. Denies vomiting. MUSCULOSKELETAL: The planes of right shoulder and arm pain. INTEGUMENTARY: Denies pruitis. Denies rash. NEUROLOGIC: Denies numbness. Denies tingling. Denies weakness. PSYCHIATRIC: Denies anxiety. Denies depression. ENDOCRINE: Denies fatigue. Denies weight change. Denies polydipsia. Denies polyurina. GENITOURINARY: Denies burning, hematuria or urgency with micturation. HEMATOLOGIC: Denies history of anemia. Denies bleeding. Past Medical History Past Medical History: Atrial Fibrillation, Cancer, COPD, Diabetes Mellitus, GERD /Reflux, Hypertension, Osteoarthritis (OA), Pneumonia, Prostate Disorder, Thyroid Disorder Additional Past Medical History / Comment(s): Pt recently admitted 07/29/17 with multilobar pneumonia. Other HX: Thyroid cancer with surgery, hypothyroidism , skin cancers with removals, prostrate cancer with radiation, lower GI bleed thought possibly d/t radiation proctitis, diverticular disease, anemia, duodenal ulcer, ETOH, ETOH withdrawal/delirium tremors, NIDDM type II, R leg weakness, falls, chronic lower extremity edema, arthritis thoracic spine. History of Any Multi-Drug Resistant Organisms: None Reported Past Surgical History: Bowel Resection Additional Past Surgical History / Comment(s): thyroidectomy, colonoscopy/ polypectomy, skin cancer removed, bilateral cataracts, bowel resection-d/t diverticulits Past Anesthesia/Blood Transfusion Reactions: No Reported Reaction Smoking Status: Current every day smoker - Past Family History Father Family Medical History: Asthma, CVA/TIA Additional Family Medical History / Comment(s): pacemaker, smoker Mother Family Medical History: Chest Pain / Angina Additional Family Medical History / Comment(s): smoker Medications and Allergies Home Medications Medication Instructions Recorded Confirmed Type Naphazoline HCl/Glycerin [Clear 1 drop BOTH EYES DAILY PRN 10/24/16 08/14/17 History Eyes Max Redness Rlf Drp] Budesonide-Formot 160-4.5 Mcg 2 puff INHALATION RT-BID #1 inhaler 10/27/1608/14 Rx [Symbicort 160-4.5 Mcg Inhaler] Albuterol Inhaler [Ventolin Hfa 1 - 2 puff INHALATION RT-QID #0 01/13/17 Rx Inhaler] Digoxin [Lanoxin] 125 mcg PO DAILY #30 tab 01/13/17 08/14/17 Rx Levothyroxine Sodium [Synthroid] 100 mcg PO DAILY@0630 #30 tab 01/13/17 Rx Metoprolol Tartrate [Lopressor] 25 mg PO TID #90 tab 01/13/17 08/14/17 Rx metFORMIN HCL [Glucophage] 250 mg PO AC-BID #60 tab 01/13/17 08/14/17 Rx Spironolactone 50 mg PO DAILY 07/29/17 08/14/17 History Allergies Allergy/AdvReac Type Severity Reaction Status Date / Time aspirin Allergy Rash/Hives Verified 08/14/17 19:14 Physical Exam Vitals: Vital Signs Temp Pulse Pulse Resp BP BP Pulse Ox 08/15/17 11:29 86 08/15/17 11:19 80 08/15/17 08:24 98.8 F 84 16 123/72 98 08/15/17 08:00 16 08/15/17 07:42 82 08/15/17 07:32 76 08/15/17 06:36 73 18 102/55 97 08/15/17 06:00 80 16 108/59 97 08/15/17 05:00 78 20 109/58 97 08/15/17 04:00 97.4 F L 77 20 100/56 98 08/15/17 02:00 97 F L 79 16 99/56 97 08/15/17 00:51 83 16 107/56 97 08/15/17 00:00 80 16 111/65 97 08/14/17 23:00 98 16 126/80 100 08/14/17 21:55 99 18 120/72 97 08/14/17 21:00 88 20 114/58 96 08/14/17 19:30 99 20 144/80 99 08/14/17 18:50 97.8 F 106 H 16 138/80 96 Intake and Output 08/14/17 08/15/17 08/15/17 22:59 06:59 14:59 Other: Voiding Method Incontinent Weight 74.389 kg Blood pressure 123/72 heart rate 84 afebrile GENERAL: This is a 82-year-old male in no apparent distress at the time of my examination. HEENT: Head is atraumatic, normocephalic. Pupils are equal, round. Sclerae anicteric. Conjunctivae are clear. Mucous membranes of the mouth are moist. Neck is supple. There is no jugular venous distention. No carotid bruit is heard. LUNGS: Expiratory wheezes throughout, no rales or rhonchi. Positive right chest wall tenderness is noted on palpation or with deep breathing. HEART: Irregular rate and rhythm with systolic murmur at the base, no rubs or gallops. S1 and S2 heard. ABDOMEN: Soft, nontender. Bowel sounds are heard. No organomegaly noted. EXTREMITIES: Bilateral 1+ pitting lower extremity edema with no calf tenderness noted. VASCULAR: Radial and dorsalis pedis pulses palpated, no evidence of clubbing. NEUROLOGIC: Patient is awake, alert and oriented x3. Periods of confusion regarding fall. Results 08/16/17 06:14 08/16/17 06:14 Cardiac Enzymes 08/14/17 Range/Units 19:30 AST 30 (17-59) U/L Coagulation 08/14/17 Range/Units 19:30 PT 10.4 (9.0-12.0) sec APTT 23.2 (22.0-30.0) sec CBC 08/14/17 Range/Units 19:30 WBC 7.8 (3.8-10.6) k/uL RBC 2.94 L (4.30-5.90) m/uL Hgb 10.5 L (13.0-17.5) gm/dL Hct 32.9 L (39.0-53.0) % Plt Count 221 (150-450) k/uL Comprehensive Metabolic Panel 08/14/17 Range/Units 19:30 Sodium 138 (137-145) mmol/L Potassium 3.9 (3.5-5.1) mmol/L Chloride 101 (98-107) mmol/L Carbon Dioxide 23 (22-30) mmol/L BUN 11 (9-20) mg/dL Creatinine 0.69 (0.66-1.25) mg/dL Glucose 202 H (74-99) mg/dL Calcium 9.8 (8.4-10.2) mg/dL AST 30 (17-59) U/L ALT 40 (21-72) U/L Alkaline Phosphatase 94 (38-126) U/L Total Protein 6.7 (6.3-8.2) g/dL Albumin 3.8 (3.5-5.0) g/dL Current Medications Generic Name Dose Route Start Last Admin Trade Name Freq PRN Reason Stop Dose Admin Albuterol/Ipratropium 3 ml 08/14/17 20:53 Duoneb 0.5 Mg-3 Mg/3 Ml Soln INHALATION RT-Q4H PRN Shortness Of Breath Or Wheezing Albuterol/Ipratropium 3 ml 08/15/17 08:00 08/15/17 11:17 Duoneb 0.5 Mg-3 Mg/3 Ml Soln INHALATION 3 ml RT-QID NAIMA Administration Digoxin 125 mcg 08/15/17 09:00 08/15/17 09:32 Lanoxin PO 125 mcg DAILY NAIMA Administration Levofloxacin 500 mg/ IV 100 mls @ 100 mls/hr 08/15/17 21:00 Solution IVPB Q24H NAIMA Vancomycin HCl 1,500 mg/ 250 mls @ 125 mls/hr 08/15/17 09:00 08/15/17 09:13 Sodium Chloride IVPB 125 mls/hr Q12HR NAIMA Administration Sodium Chloride 1,000 mls @ 75 mls/hr 08/14/17 21:30 08/15/17 04:57 Saline 0.9% IV 75 mls/hr .[id number] NAIMA Administration Insulin Aspart 0 unit 08/15/17 12:30 Novolog SQ ACHS [facility] Protocol Levothyroxine Sodium 100 mcg 08/15/17 06:30 08/15/17 09:31 Synthroid PO 100 mcg DAILY@0630 NAIMA Administration Lorazepam 1 mg 08/14/17 20:53 Ativan IV Q2HR PRN CIWA 8 or 9 Lorazepam 1 mg 08/14/17 20:53 Ativan IV Q1HR PRN CIWA 10 to 15 Lorazepam 2 mg 08/14/17 20:53 Ativan IV 08/16/17 20:53 Q10M PRN CIWA 16 or higher Metformin HCl 250 mg 08/15/17 07:30 08/15/17 09:29 Glucophage PO 250 mg AC-BID NAIMA Administration Metoprolol Tartrate 25 mg 08/14/17 22:00 08/15/17 09:31 Lopressor PO 25 mg TID NAIMA Administration Miscellaneous Information 1 each 08/14/17 20:52 Pharmacy To Dose Iv Vancomycin MISCELLANE DIRECTED PRN Per Protocol Prednisone 40 mg 08/15/17 09:00 08/15/17 09:31 PO 40 mg DAILY NAIMA Administration Spironolactone 50 mg 08/15/17 09:00 08/15/17 09:31 Aldactone PO 50 mg DAILY NAIMA Administration Thiamine HCl 100 mg 08/15/17 12:00 Vitamin B-1 PO BID@1200,1700 NAIMA Intake and Output 08/14/17 08/15/17 08/15/17 22:59 06:59 14:59 Other: Voiding Method Incontinent Weight 74.389 kg 08/14/17 19:30 08/14/17 19:30 Assessment and Plan Assessment: ASSESSMENT 1. Chronic persistent atrial fibrillation with controlled ventricular response 2. Hypertension 3. COPD 4. Diabetes mellitus 5. Pneumonia 6. Chronic tobacco use 7. Alcohol abuse PLAN Obtain proBNP level. Continue digoxin, Lopressor and spironolactone as previously ordered. Smoking and alcohol cessation recommended. Thank you kindly for this consultation. Nurse Practitioner note has been reviewed, I agree with a documented findings and plan of care. Patient was seen and examined.
[2017-08-15] MEDS: INSULIN ASPART 100 UNIT/ML 1 ML 10 ML VIAL SQ SCH ×3 (12:56→21:03)
[2017-08-15] MEDS: THIAMINE 100 MG TAB PO SCH ×2 (12:58→18:12)
[2017-08-15] MEDS ORDERED: ACETAMINOPHEN TAB 325 MG TAB PO PRN (16:15)
[2017-08-15] MEDS ORDERED: HYDROcodone/APAP 5-325MG 1 EACH TAB PO PRN (16:16)
[2017-08-15 16:43] LABS: Glucose,Whole Blood 394 mg/dL (75-99)
[2017-08-15] MEDS: SYMBICORT 160-4.5 MCG INHALER INHALATION SCH (19:09)
[2017-08-15 20:27] LABS: Hemoglobin A1C 6.9 % (4.0-6.0)
[2017-08-15 20:53] LABS: Glucose,Whole Blood 356 mg/dL (75-99)
[2017-08-16] MEDS ORDERED: LEVOFLOXACIN 500MG-D5W PMX 500 MG in DEXTROSE/WATER 1 100ML.BAG IVPB SCH
[2017-08-16 06:40] LABS: Basophils % (A) 0 %; Eosinophils % (A) 1 %; HCT 29.6 % (39.0-53.0); HGB 9.4 gm/dL (13.0-17.5); Hypochromasia Moderate; Lymphocytes # (A) 0.5 k/uL (1.0-4.8); Lymphocytes % (A) 9 %; MCH 35.3 pg (25.0-35.0); MCHC 31.8 g/dL (31.0-37.0); Mean Platelet Volume 9.4; Monocytes # (A) 0.2 k/uL (0-1.0); Monocytes % (A) 4 %; Neutrophils # (A) 4.7 k/uL (1.3-7.7); Neutrophils % (A) 86 %; Platelet Count 173 k/uL (150-450); RBC 2.67 m/uL (4.30-5.90); RDW 15.9 % (11.5-15.5); WBC 5.4 k/uL (3.8-10.6)
[2017-08-16 06:41] LABS: Macrocytosis Marked
[2017-08-16 06:51] LABS: Glucose,Whole Blood 291 mg/dL (75-99)
[2017-08-16] MEDS: LEVOTHYROXINE 100 MCG TAB PO SCH (06:52)
[2017-08-16 06:53] LABS: Anion Gap 7 mmol/L; Blood Urea Nitrogen 14 mg/dL (9-20); Calcium 8.7 mg/dL (8.4-10.2); Carbon Dioxide 24 mmol/L (22-30); Chloride 108 mmol/L (98-107); Glucose 158 mg/dL (74-99); Potassium 3.7 mmol/L (3.5-5.1); Sodium 139 mmol/L (137-145)
[2017-08-16] MEDS: IPRATROPIUM-ALBUTEROL 3 ML NEB INHALATION SCH ×4 (06:56→20:01)
[2017-08-16] MEDS: SYMBICORT 160-4.5 MCG INHALER INHALATION SCH ×2 (06:56→20:01)
[2017-08-16] MEDS: INSULIN ASPART 100 UNIT/ML 1 ML 10 ML VIAL SQ SCH ×4 (08:09→20:35)
[2017-08-16] MEDS: VANCOMYCIN 1,500 MG in SODIUM CHLORIDE 0.9% 250 ML IVPB SCH ×2 (08:48→20:36)
[2017-08-16] MEDS: metFORMIN 500 MG TAB PO SCH ×2 (08:49→18:17)
[2017-08-16] MEDS: predniSONE 20 MG TAB PO SCH (08:49)
[2017-08-16] MEDS: SPIRONOLACTONE 25 MG TAB PO SCH (08:49)
[2017-08-16] MEDS: METOPROLOL TARTRATE 25 MG TAB PO SCH ×3 (08:50→20:36)
[2017-08-16] MEDS: THIAMINE 100 MG TAB PO SCH ×2 (08:50→18:15)
[2017-08-16] MEDS: DIGOXIN 125 MCG TAB PO SCH (08:50)
--- NOTE | 2017-08-16 11:08 | P.PN ---
Subjective Progress Note Date: 08/16/17 Mr. Chakraborty is a pleasant 82-year-old male past medical history significant for chronic persistent atrial fibrillation with controlled ventricular response not on long-term anticoagulation secondary to GI bleed, ETOH abuse and frequent falls. He also has diabetes mellitus, hypertension, gastroesophageal reflux disease, COPD, chronic tobacco use and daily alcohol abuse. He follows with Dr. Aguillon in the office. We have been consulted to see him secondary to atrial fibrillation. He apparently had a fall at home that was mechanical in nature and possible related to ETOH intoxication. He denies having dizziness, chest pain, shortness of breath, palpitations, diaphoresis, nausea or vomiting prior to falling. He states he got up to turn off the stove and tripped and fell in the doorway onto his right side. At the time of my exam he is seen sitting up in bed in no acute distress. He continues to deny chest pain, shortness of breath, dizziness, palpitations, diaphoresis, nausea or vomiting. EKG on arrival reveals atrial fibrillation with no acute changes with digitalis effect and prolonged QT. Consistent with old EKG. Chest xray positive for right lower lobe pneumonia as well as small right sided pleural effusion. Laboratory data reviewed, hemoglobin 10.5, platelets 221, potassium 3.9, creatinine 0.69, lactic acid on admission 3.1 repeat 1.8. Current cardiac medications include spironolactone 50 mg daily, Lopressor 25 mg 3 times a day and digoxin 125 g daily. Most recent echocardiogram performed 12/2016 reveals preserved LV systolic function with EF 55-60%, mildly enlarged RV, moderately enlarged LA, moderate MR and TR, mild pulmonary hypertension with RVSP 43.33 mmHg and mild aortic stenosis. 08/16/2017 Mr. Chakraborty is seen today in follow-up sitting in bed in no acute distress. He denies any chest pain but complains of mild shortness of breath. Telemetry tracings have been unremarkable. ProBNP ordered yesterday is 5,330. Other laboratory data reviewed reveals hgb 9.4 platelets 173, potassium 3.7, creatinine 0.75. He is currently receiving breathing treatments around the clock as well as levaquin and vancomycin for pneumonia. Objective - Vital Signs Vital signs: Vital Signs Temp 97.9 F 08/16/17 07:00 Pulse 80 08/16/17 07:10 Resp 16 08/16/17 07:00 BP 134/76 08/16/17 07:00 Pulse Ox 99 08/16/17 07:00 Intake & Output 08/15/17 08/16/17 08/16/17 18:59 06:59 18:59 Intake Total 600 3000 Balance 600 3000 Weight 74.389 kg Intake: IV 600 600 Sodium Chloride 0.9% 1, 600 600 000 ml @ 75 mls/hr IV . [id number] NAIMA Rx#:[id number] Intake, IV Titration 850 Amount Sodium Chloride 0.9% 1, 600 000 ml @ 75 mls/hr IV . [id number] NAIMA Rx#:[id number] Vancomycin 1,500 mg In 250 Sodium Chloride 0.9% 250 ml @ 125 mls/hr IVPB Q12HR NAIMA Rx#:[id number] Oral 1550 Other: Voiding Method Incontinent Incontinent Incontinent # Voids 2 # Bowel Movements 1 - Exam GENERAL: Well-appearing, well-nourished and in no acute distress. NECK: Supple without JVD or thyromegaly. LUNGS: Breath sounds clear to auscultation bilaterally. Respiration equal and unlabored. No wheezes, rales or rhonchi. HEART: Irregular rate and rhythm with systolic ejection murmur at the base, no rubs or gallops. S1 and S2 heard. EXTREMITIES: Normal range of motion, 2+ pitting b/l lower extremity edema. No clubbing or cyanosis. Peripheral pulses intact and strong. - Labs CBC & Chem 7: 08/16/17 06:14 08/16/17 06:14 Labs: Abnormal Lab Results - Last 24 Hours (Table) 08/15/17 08/15/17 08/15/17 Range/Units 11:00 11:32 16:38 RBC (4.30-5.90) m/uL Hgb (13.0-17.5) gm/dL Hct (39.0-53.0) % MCV (80.0-100.0) fL MCH (25.0-35.0) pg RDW (11.5-15.5) % Lymphocytes # (1.0-4.8) k/uL Chloride (98-107) mmol/L Glucose (74-99) mg/dL POC Glucose (mg/dL) 203 H 394 H (75-99) mg/dL Hemoglobin A1c 6.9 H (4.0-6.0) % 08/15/17 08/16/17 08/16/17 Range/Units 20:52 06:14 06:14 RBC 2.67 L (4.30-5.90) m/uL Hgb 9.4 L (13.0-17.5) gm/dL Hct 29.6 L (39.0-53.0) % MCV 111.0 H (80.0-100.0) fL MCH 35.3 H (25.0-35.0) pg RDW 15.9 H (11.5-15.5) % Lymphocytes # 0.5 L (1.0-4.8) k/uL Chloride 108 H (98-107) mmol/L Glucose 158 H (74-99) mg/dL POC Glucose (mg/dL) 356 H (75-99) mg/dL Hemoglobin A1c (4.0-6.0) % 08/16/17 Range/Units 06:46 RBC (4.30-5.90) m/uL Hgb (13.0-17.5) gm/dL Hct (39.0-53.0) % MCV (80.0-100.0) fL MCH (25.0-35.0) pg RDW (11.5-15.5) % Lymphocytes # (1.0-4.8) k/uL Chloride (98-107) mmol/L Glucose (74-99) mg/dL POC Glucose (mg/dL) 291 H (75-99) mg/dL Hemoglobin A1c (4.0-6.0) % Microbiology - Last 24 Hours (Table) 08/15/17 18:50 Urine Culture - Preliminary Urine,Catheterized 08/14/17 19:30 Blood Culture - Preliminary Blood No Growth after 24 hours Assessment and Plan Assessment: ASSESSMENT 1. Chronic persistent atrial fibrillation with controlled ventricular response 2. Hypertension 3. COPD 4. Diabetes mellitus 5. Pneumonia 6. Chronic tobacco use 7. Alcohol abuse 8. Acute exacerbation of diastolic heart failure with preserved EF. PLAN Obtain 2D echocardiogram and doppler study to assess cardiac structure and function. Add IV lasix 40 mg BID to diurese. Strict intake and output with daily weights. Check BMP in the morning. Continue digoxin, Lopressor and spironolactone as previously ordered. Further recommendations will be based upon clinical course. Nurse Practitioner note has been reviewed, I agree with a documented findings and plan of care. Patient was seen and examined.
[2017-08-16] MEDS: FUROSEMIDE 10 MG/ML 4 ML VIAL IV SCH ×2 (11:31→21:19)
[2017-08-16 11:44] LABS: Glucose,Whole Blood 216 mg/dL (75-99)
--- NOTE | 2017-08-16 12:06 | P.CNPUL ---
History of Present Illness Consult date: 08/16/17 Requesting physician: Hua Kinney Reason for consult: dyspnea, cough, abnormal CXR/CT Chief complaint: Increased shortness of breath, productive cough, right knee pain History of present illness: Jose is a 82-year-old white male patient lives with Dr. Gee, who was recently hospitalized for multilobar pneumonia and COPD exacerbation and discharged home on 08/02/2017, presented to the hospital on 08/14/2017 per EMS with complaints of weakness, pre-shortness of breath, productive cough with white phlegm. Because of his weakness, he fell at home, and hurt his right knee. His right knee seems to be more swollen compared to the left knee, and there is 2+ edema in bilateral lower legs, which the patient states is chronic. He states after he was discharged, he felt well for a while, however he started getting increasingly short of breath, with a persistent cough. Denied any fever or chills at home. He is a smoker, currently down to less than a pack a day, but prior to that he smoked up to 2 packs a day for 40 years. He also drinks EtOH, 3 shots of vodka on a daily basis, he is last drink was on the day of his admission. Chest x-ray from 08/14/2017 shows airspace opacity in the right lower lobe which has increased since the previous study from 2017. There is a small right-sided pleural effusion and an elevation of the right hemidiaphragm. Calcified granuloma identified at the right lung base. Patient was discharged home on outpatient course of Ceftin 500 mg by mouth twice a day for 5 days, and prednisone taper. Patient states he did finish them. Sputum culture from last admission just showed Cassandra albicans, blood cultures were negative. On presentation patient was afebrile, no evidence of leukocytosis with WBC of 7.8, hemoglobin is 10.5, and evidence of coagulopathy, normal renal profile, no electrolyte abnormality, plasma lactic acid was elevated at 3.1, liver enzymes were within normal limits, proBNP was elevated at 5330. Alcohol level was less than 10. Patient was started on a combination of Levaquin and vancomycin, nebulized treatments, oral prednisone and admitted to the medical surgical floor. Review of Systems All systems: negative Constitutional: Denies chills, Denies fever Eyes: denies blurred vision, denies pain Ears, nose, mouth and throat: Denies headache, Denies sore throat Cardiovascular: Denies chest pain, Denies shortness of breath Respiratory: Denies cough Gastrointestinal: Denies abdominal pain, Denies diarrhea, Denies nausea, Denies vomiting Musculoskeletal: Reports frequent falls, Reports gait dysfunction, Reports limitation of motion, Denies myalgias Musculoskeletal: right: knee pain, knee swelling Integumentary: Denies pruritus, Denies rash Neurological: Denies numbness, Denies weakness Psychiatric: Denies anxiety, Denies depression Endocrine: Denies fatigue, Denies weight change Past Medical History Past Medical History: Atrial Fibrillation, Cancer, COPD, Diabetes Mellitus, GERD /Reflux, Hypertension, Osteoarthritis (OA), Pneumonia, Prostate Disorder, Thyroid Disorder Additional Past Medical History / Comment(s): Pt recently admitted 07/29/17 with multilobar pneumonia. Other HX: Thyroid cancer with surgery, hypothyroidism , skin cancers with removals, prostrate cancer with radiation, lower GI bleed thought possibly d/t radiation proctitis, diverticular disease, anemia, duodenal ulcer, ETOH, ETOH withdrawal/delirium tremors, NIDDM type II, R leg weakness, falls, chronic lower extremity edema, arthritis thoracic spine. History of Any Multi-Drug Resistant Organisms: None Reported Past Surgical History: Bowel Resection Additional Past Surgical History / Comment(s): thyroidectomy, colonoscopy/ polypectomy, skin cancer removed, bilateral cataracts, bowel resection-d/t diverticulits Past Anesthesia/Blood Transfusion Reactions: No Reported Reaction Smoking Status: Current every day smoker - Past Family History Father Family Medical History: Asthma, CVA/TIA Additional Family Medical History / Comment(s): pacemaker, smoker Mother Family Medical History: Chest Pain / Angina Additional Family Medical History / Comment(s): smoker Medications and Allergies Home Medications Medication Instructions Recorded Confirmed Type Naphazoline HCl/Glycerin [Clear 1 drop BOTH EYES DAILY PRN 10/24/16 08/14/17 History Eyes Max Redness Rlf Drp] Budesonide-Formot 160-4.5 Mcg 2 puff INHALATION RT-BID #1 inhaler 10/27/1608/14 Rx [Symbicort 160-4.5 Mcg Inhaler] Albuterol Inhaler [Ventolin Hfa 1 - 2 puff INHALATION RT-QID #0 01/13/17 Rx Inhaler] Digoxin [Lanoxin] 125 mcg PO DAILY #30 tab 01/13/17 08/14/17 Rx Levothyroxine Sodium [Synthroid] 100 mcg PO DAILY@0630 #30 tab 01/13/17 Rx Metoprolol Tartrate [Lopressor] 25 mg PO TID #90 tab 01/13/17 08/14/17 Rx metFORMIN HCL [Glucophage] 250 mg PO AC-BID #60 tab 01/13/17 08/14/17 Rx Spironolactone 50 mg PO DAILY 07/29/17 08/14/17 History Allergies Allergy/AdvReac Type Severity Reaction Status Date / Time aspirin Allergy Rash/Hives Verified 08/14/17 19:14 Physical Exam Vitals: Vital Signs Temp Pulse Pulse Resp BP Pulse Ox 08/16/17 11:23 86 08/16/17 11:13 88 08/16/17 07:10 80 08/16/17 07:00 97.9 F 84 16 134/76 99 08/16/17 06:56 82 08/16/17 04:05 98.0 F 72 16 124/76 98 08/16/17 00:00 16 08/15/17 20:00 98.1 F 81 16 108/67 98 08/15/17 19:10 84 16 08/15/17 19:00 98.7 F 81 16 107/69 98 08/15/17 15:51 86 16 08/15/17 15:40 84 16 96 08/15/17 14:55 99.0 F 89 16 102/65 99 Intake and Output 08/15/17 08/16/17 08/16/17 22:59 06:59 14:59 Intake Total 1330 1670 Balance 1330 1670 Intake: IV 600 Sodium Chloride 0.9% 1, 600 000 ml @ 75 mls/hr IV . [id number] [facility] Rx#:[id number] Intake, IV Titration 250 600 Amount Sodium Chloride 0.9% 1, 600 000 ml @ 75 mls/hr IV . [id number] [facility] Rx#:[id number] Vancomycin 1,500 mg In 250 Sodium Chloride 0.9% 250 ml @ 125 mls/hr IVPB Q12HR [facility] Rx#:[id number] Oral 480 1070 Other: Voiding Method Incontinent Incontinent # Voids 4 2 # Bowel Movements 1 Weight 74.389 kg GENERAL EXAM: Alert, 82-year-old white male, somewhat irritable, but in no distress HEAD: Normocephalic/atraumatic. EYES: Normal reaction of pupils, equal size. Conjunctiva pink, sclera white. NOSE: Clear with pink turbinates. THROAT: No erythema or exudates. NECK: No masses, no JVD, no thyroid enlargement, no adenopathy. CHEST: No chest wall deformity. Symmetrical expansion. LUNGS: Equal air entry with no crackles, wheeze, rhonchi or dullness. CVS: Irregular rate and rhythm, normal S1 and S2, no gallops, no murmurs, no rubs ABDOMEN: Soft, nontender. No hepatosplenomegaly, normal bowel sounds, no guarding or rigidity. EXTREMITIES: No clubbing, no cyanosis, 2+ pulses and upper and lower extremities. There is 2+ pitting bilateral lower leg edema MUSCULOSKELETAL: Muscle strength and tone normal. Right knee is swollen, painful with limited range of motion, no warmth or redness noted SPINE: No scoliosis or deformity SKIN: No rashes CENTRAL NERVOUS SYSTEM: Alert and oriented -3. No focal deficits, tone is normal in all 4 extremities. PSYCHIATRIC: Alert and oriented -3. Irritable Results - Laboratory Findings CBC and BMP: 08/16/17 06:14 08/16/17 06:14 PT/INR, D-dimer PT 10.4 sec (9.0-12.0) 08/14/17 19:30 INR 1.1 (<1.2) 08/14/17 19:30 Abnormal lab findings: Abnormal Labs 08/14/17 08/14/17 08/14/17 19:30 19:30 19:30 RBC 2.94 L Hgb 10.5 L Hct 32.9 L MCV 111.7 H MCH 35.7 H RDW Lymphocytes # 0.5 L Chloride Glucose 202 H POC Glucose (mg/dL) Hemoglobin A1c Plasma Lactic Acid Claus 3.1 H* 08/15/17 08/15/17 08/15/17 11:00 11:32 16:38 RBC Hgb Hct MCV MCH RDW Lymphocytes # Chloride Glucose POC Glucose (mg/dL) 203 H 394 H Hemoglobin A1c 6.9 H Plasma Lactic Acid Claus 0108/16/17 08/16/17 20:52 06:14 06:14 RBC 2.67 L Hgb 9.4 L Hct 29.6 L MCV 111.0 H MCH 35.3 H RDW 15.9 H Lymphocytes # 0.5 L Chloride 108 H Glucose 158 H POC Glucose (mg/dL) 356 H Hemoglobin A1c Plasma Lactic Acid Claus 08/16/17 06:46 RBC Hgb Hct MCV MCH RDW Lymphocytes # Chloride Glucose POC Glucose (mg/dL) 291 H Hemoglobin A1c Plasma Lactic Acid Claus - Diagnostic Findings Chest x-ray: report reviewed Additional studies: Right knee x-ray, pelvis x-ray and had/cervical spine CT reviewed Assessment and Plan Plan: Assessment: #1. Acute right lower lobe pneumonia, healthcare acquired. Chest x-ray from shows creased airspace opacity in the right lower lobe since the previous study on 2017. Patient was hospitalized for right lower lobe pneumonia and discharged home on 08/02/2017 on outpatient course of Ceftin and prednisone taper. #2. COPD exacerbation, due to the above #3. Lactic acidosis, present on admission, the asthma lactic acid of 3.1, possibly related to hypoperfusion, responded well to IV fluids, subsequent Actiq Essick came down to 1.8. #4. Right knee pain and swelling, post fall at home, x-rays of the right knee and pelvis were obtained and are negative for any acute bony abnormality or dislocation. #5. Recent admission for right lower lobe pneumonia, was discharged home on on outpatient course of Ceftin. #6. Chronic persistent atrial fibrillation with controlled ventricular response , currently not on any anticoagulation due to his history of GI bleeding #7. Elevated proBNP, his most recent echo from 01/10/2017 shows an EF 55-60%, there is mild pulmonary hypertension with right ventricular systolic pressure of 43 mmHg. This is consistent with mild diastolic heart failure #8 Chronic EtOH abuse #9. Chronic nicotine dependence, down to less than a pack a day, carries a 40 year smoking history of up to 2 packs a day #10. Macrocytic anemia #11. Diabetes mellitus #12. Hypertension #13. Enlarged prostate #14. History of thyroid cancer with thyroidectomy, on levothyroid #15. GERD Plan: Continue Levaquin and vancomycin, obtain sputum cultures. Continue Symbicort and nebulized treatments. IV diuresis per cardiology. Monitor for signs of delirium tremens, and decrease the fluids down to KVO. I performed a history & physical examination of the patient and discussed their management with my nurse practitioner, Sujatha Barron. I reviewed the nurse practitioner's note and agree with the documented findings and plan of care. Lung sounds are positive for diminished breath sounds. The findings and the impression was discussed with the patient. I attest to the documentation by the nurse practitioner.
[2017-08-16] MEDS ORDERED: RX INFO: IV CONTRAST WAS GIVEN 1 EACH MISC MISCELLANE PRN (12:12)
--- NOTE | 2017-08-16 12:12 | P.CNPUL ---
History of Present Illness Consult date: 08/15/17 History of present illness: 82-year-old male patient with history of COPD, chronic persistent atrial fibrillation with controlled ventricular response not on long-term anticoagulation secondary to GI bleed, alcoholism and and frequent falls. He also has diabetes mellitus, hypertension, gastroesophageal reflux disease, chronic tobacco use and daily alcohol abuse. The patient presented to the ED with chief complaint right knee pain. The patient stated that he had a chronic weakness in the right lower extremity dating for the past 2 years. such, he has been at increased risk of falls. He denied any other injury in the fall. He was able to ambulate after this fall. The patient was recently admitted to the hospital with pneumonia, he denies fever, states he has had a productive cough which he believes is no improvement. He denied chest pain. He denies having dizziness, chest pain, shortness of breath, palpitations, diaphoresis, nausea or vomiting prior to falling. His CXR showed a RLL infiltrates and a small right lower lobe effusion . EKG on arrival reveals atrial fibrillation with no acute changes with digitalis effect and prolonged QT. Consistent with old EKG. Laboratory data reviewed, hemoglobin 10.5, platelets 221, potassium 3.9, creatinine 0.69, lactic acid on admission 3.1 repeat 1.8. Based on the abnormal CXR, a pulmonary consultation was requested. Review of Systems CONSTITUTIONAL: Denies fever. Denies chills. EYES: Denies blurred vision. Denies vision changes. Denies eye pain. EARS, NOSE, MOUTH & THROAT: Denies headache. Denies sore throat. Denies ear pain. CARDIOVASCULAR: Denies chest pain. Denies shortness of breath. Denies orthopnea. Denies PND. Denies palpitations. RESPIRATORY: Denies cough. GASTROINTESTINAL: Denies abdominal pain. Denies diarrhea. Denies constipation. Denies nausea. Denies vomiting. MUSCULOSKELETAL: right shoulder and arm pain. Chronic weakness of the RLE and history of falls INTEGUMENTARY: Denies pruitis. Denies rash. NEUROLOGIC: Denies numbness. Denies tingling. RLE weakness. PSYCHIATRIC: Denies anxiety. Denies depression. ENDOCRINE: Denies fatigue. Denies weight change. Denies polydipsia. Denies polyurina. GENITOURINARY: Denies burning, hematuria or urgency with micturation. HEMATOLOGIC: Denies history of anemia. Denies bleeding. Past Medical History Past Medical History: Atrial Fibrillation, Cancer (multiple cancer including thyroid, prostate and skin), COPD, Diabetes Mellitus, GERD/Reflux, Hypertension , Osteoarthritis (OA), Pneumonia, Prostate Disorder, Thyroid Disorder Additional Past Medical History / Comment(s): Pt recently admitted 07/29/17 with multilobar pneumonia. Other HX: COPD, chronic atrial fibrillation, Thyroid cancer with thyroidectomy, hypothyroidism, skin cancers with removals, prostrate cancer with radiation, lower GI bleed thought secondary to radiation proctitis, diverticular disease, chronic anemia, duodenal ulcer, ETOH, history of ETOH withdrawal/delirium tremors, NIDDM type II, R leg weakness, history of falls, chronic lower extremity edema, arthritis thoracic spine. History of Any Multi-Drug Resistant Organisms: None Reported Past Surgical History: Bowel Resection Additional Past Surgical History / Comment(s): thyroidectomy, colonoscopy/ polypectomy, skin cancer removed, bilateral cataracts, bowel resection-d/t diverticulits Past Anesthesia/Blood Transfusion Reactions: No Reported Reaction Smoking Status: Current every day smoker - Past Family History Father Family Medical History: Asthma, CVA/TIA Additional Family Medical History / Comment(s): pacemaker, smoker Mother Family Medical History: Chest Pain / Angina Additional Family Medical History / Comment(s): smoker Medications and Allergies Home Medications Medication Instructions Recorded Confirmed Type Naphazoline HCl/Glycerin [Clear 1 drop BOTH EYES DAILY PRN 10/24/16 08/14/17 History Eyes Max Redness Rlf Drp] Budesonide-Formot 160-4.5 Mcg 2 puff INHALATION RT-BID #1 inhaler 10/27/1608/14 Rx [Symbicort 160-4.5 Mcg Inhaler] Albuterol Inhaler [Ventolin Hfa 1 - 2 puff INHALATION RT-QID #0 01/13/17 Rx Inhaler] Digoxin [Lanoxin] 125 mcg PO DAILY #30 tab 01/13/17 08/14/17 Rx Levothyroxine Sodium [Synthroid] 100 mcg PO DAILY@0630 #30 tab 01/13/17 Rx Metoprolol Tartrate [Lopressor] 25 mg PO TID #90 tab 01/13/17 08/14/17 Rx metFORMIN HCL [Glucophage] 250 mg PO AC-BID #60 tab 01/13/17 08/14/17 Rx Spironolactone 50 mg PO DAILY 07/29/17 08/14/17 History Allergies Allergy/AdvReac Type Severity Reaction Status Date / Time aspirin Allergy Rash/Hives Verified 08/14/17 19:14 Physical Exam Vitals: Vital Signs Temp Pulse Pulse Resp BP BP Pulse Ox 08/15/17 19:10 84 16 08/15/17 19:00 98.7 F 81 16 107/69 98 08/15/17 15:51 86 16 08/15/17 15:40 84 16 96 08/15/17 14:55 99.0 F 89 16 102/65 99 08/15/17 11:29 86 08/15/17 11:19 80 08/15/17 08:24 98.8 F 84 16 123/72 98 08/15/17 08:00 16 08/15/17 07:42 82 08/15/17 07:32 76 08/15/17 06:36 73 18 102/55 97 08/15/17 06:00 80 16 108/59 97 08/15/17 05:00 78 20 109/58 97 08/15/17 04:00 97.4 F L 77 20 100/56 98 08/15/17 02:00 97 F L 79 16 99/56 97 08/15/17 00:51 83 16 107/56 97 08/15/17 00:00 80 16 111/65 97 08/14/17 23:00 98 16 126/80 100 08/14/17 21:55 99 18 120/72 97 Intake and Output 08/15/17 08/15/17 08/15/17 06:59 14:59 22:59 Intake Total 600 Balance 600 Intake: IV 600 Sodium Chloride 0.9% 1, 600 000 ml @ 75 mls/hr IV . [id number] [facility] Rx#:[id number] Other: Voiding Method Incontinent Incontinent Weight 74.389 kg Patient Weight 08/16/17 06:59 Weight 74.389 kg Results GENERAL EXAM: Alert, 82-year-old white male, somewhat irritable, but in no distress HEAD: Normocephalic/atraumatic. EYES: Normal reaction of pupils, equal size. Conjunctiva pink, sclera white. NOSE: Clear with pink turbinates. THROAT: No erythema or exudates. NECK: No masses, no JVD, no thyroid enlargement, no adenopathy. CHEST: No chest wall deformity. Symmetrical expansion. LUNGS: Equal air entry with no crackles, wheeze, rhonchi or dullness. CVS: Irregular rate and rhythm, normal S1 and S2, no gallops, no murmurs, no rubs ABDOMEN: Soft, nontender. No hepatosplenomegaly, normal bowel sounds, no guarding or rigidity. EXTREMITIES: No clubbing, no cyanosis, 2+ pulses and upper and lower extremities. There is 2+ pitting bilateral lower leg edema MUSCULOSKELETAL: Muscle strength and tone normal. Right knee is swollen, painful with limited range of motion, no warmth or redness noted SPINE: No scoliosis or deformity SKIN: No rashes CENTRAL NERVOUS SYSTEM: Alert and oriented -3. No focal deficits, tone is normal in all 4 extremities. PSYCHIATRIC: Alert and oriented -3. Irritable - Laboratory Findings CBC and BMP: 08/16/17 06:14 08/16/17 06:14 PT/INR, D-dimer PT 10.4 sec (9.0-12.0) 08/14/17 19:30 INR 1.1 (<1.2) 08/14/17 19:30 Abnormal lab findings: Abnormal Labs 08/14/17 08/14/17 08/14/17 19:30 19:30 19:30 RBC 2.94 L Hgb 10.5 L Hct 32.9 L MCV 111.7 H MCH 35.7 H Lymphocytes # 0.5 L Glucose 202 H POC Glucose (mg/dL) Plasma Lactic Acid Claus 3.1 H* 08/15/17 08/15/17 08/15/17 11:32 16:38 20:52 RBC Hgb Hct MCV MCH Lymphocytes # Glucose POC Glucose (mg/dL) 203 H 394 H 356 H Plasma Lactic Acid Claus - Diagnostic Findings Chest x-ray: image reviewed Assessment and Plan Plan: Assessment 1 Persistent RLL pneumonia (aspiration likely)versus healthcare acquired. The patient was given Ceftin on outpatient basis along with a prednisone burst taper. I do not appreciate any improvement in the right lower lobe pulmonary infiltrate compared to his last x-ray findings. The patient has some mild lactic acidosis on admission. He is also on oxygen at 2-3 L/m nasal cannula. 2 COPD 3 chronic atrial fibrillation 4 Thyroid cancer with thyroidectomy 5 hypothyroidism 6 skin cancers with removals 7 prostrate cancer with radiation 8 history of lower GI bleed thought secondary to radiation proctitis 9 diverticular disease 10 chronic anemia 11 duodenal ulcer 12 ETOH, history of ETOH withdrawal/delirium tremors 13 NIDDM type II 14 R leg weakness/ history of falls 15 chronic lower extremity edema 16 arthritis thoracic spine. plan Continue Levaquin and vancomycin. Proceed with a CAT scan of the chest to characterized abnormalities in the right lung.further recommendations are to follow based on the CAT scan findings.meanwhile, the patient will be asked to complete a prednisone burst taper in regards to COPD. Continue bronchodilators.
[2017-08-16] MEDS: SODIUM CHLORIDE 0.9% 1,000 ML IV SCH ×2 (13:32→15:23)
[2017-08-16] MEDS ORDERED: TEMAZEPAM 15 MG CAP PO PRN (14:57)
--- NOTE | 2017-08-16 15:10 | ECHOF ---
Referral Reason:shortness of breath MEASUREMENTS -------- HEIGHT: 172.7 cm WEIGHT: 74.4 kg BP: 134/76 RVIDd: 3.2 cm (< 3.3) IVSd: 1.2 cm (0.6 - 1.1) LVIDd: 3.7 cm (3.9 - 5.3) LVPWd: 1.2 cm (0.6 - 1.1) IVSs: 1.6 cm LVIDs: 2.8 cm LVPWs: 1.7 cm LAESV Index (A-L): 39.42 ml/m Ao Diam: 4.2 cm (2.0 - 3.7) AV Cusp: 1.1 cm (1.5 - 2.6) LA Diam: 5.4 cm (2.7 - 3.8) AV maxP.41 mmHg AV meanP.92 mmHg AR PHT: 429 ms RAP: 15.00 mmHg RVSP: 82.39 mmHg FINDINGS -------- Sinus rhythm. This was a technically adequate study. The left ventricular size is normal. There is mild concentric left ventricular hypertrophy. Overa ll left ventricular systolic function is low-normal with, an EF between 50 - 55 %. LA is severely dilated >40 ml/m2 RA appears enlarged. Aortic valve is trileaflet and is moderately thickened. There is [id number] aortic regurgitat ion. The aortic pressure half-time by doppler is 429ms. There is mild aortic stenosis present. Peak/mean gradient across the Aortic Valve is 32.41mmHg / 14.92mmHg. The mitral valve leaflets are mildly thickened. Moderate mitral annular calcification present. Mo begmkh-in-pdmbfs mitral regurgitation is present , predominately an anteriorly directed eccentric jet . Severe tricuspid regurgitation present. There is severe pulmonary hypertension. The right ventric ular systolic pressure, as measured by Doppler, is 82.39mmHg. The aortic root is mildy dilated. The inferior vena cava is dilated with no significant inspiratory collapse which is consistent estima nicole right atrial pressure of >20 mmHg. The pericardium is normal. There is no pericardial effusion. CONCLUSIONS -------- 1. Sinus rhythm. 2. This was a technically adequate study. 3. The left ventricular size is normal. 4. There is mild concentric left ventricular hypertrophy. 5. Overall left ventricular systolic function is low-normal with, an EF between 50 - 55 %. 6. LA is severely dilated >40 ml/m2 7. RA appears enlarged. 8. Aortic valve is trileaflet and is moderately thickened. 9. There is real-pd-qbsllqvl aortic regurgitation. 10. The aortic pressure half-time by doppler is 429ms. 11. There is mild aortic stenosis present. 12. Peak/mean gradient across the Aortic Valve is 32.41mmHg / 14.92mmHg. 13. The mitral valve leaflets are mildly thickened. 14. Moderate mitral annular calcification present. 15. [id number]-[id number] mitral regurgitation is present. 16. , predominately an anteriorly directed eccentric jet. 17. Severe tricuspid regurgitation present. 18. There is severe pulmonary hypertension. 19. The right ventricular systolic pressure, as measured by Doppler, is 82.39mmHg. 20. The inferior vena cava is dilated with no significant inspiratory collapse which is consistent es timated right atrial pressure of >20 mmHg. 21. There is no pericardial effusion. WOOD CAULKER: Macario Mueller RDCS
[2017-08-16] MEDS: PIPERACILLIN-TAZOBACTAM 3.375 GM in DEXTROSE/WATER 1 50ML.BAG IVPB SCH (15:59)
--- NOTE | 2017-08-16 15:59 | CT ---
EXAMINATION TYPE: CT chest w con DATE OF EXAM: 08/16/2017 COMPARISON: 01/08/2017 HISTORY: Pneumonia. CT DLP: 390 mGycm. Automated Exposure Control for Dose Reduction was Utilized. TECHNIQUE: CT scan of the thorax is performed following with IV Contrast, patient injected with 100m l mL of Omnipaque 300. FINDINGS: LUNGS: There is a moderate right pleural effusion and right basilar subsegmental compressive atelecta sis. Right intrafissural fluid is also seen. Additionally within the right middle lobe there is low-d ensity airspace disease with enhancement less than that of the paraspinal musculature suggestive of r ight middle lobe pneumonia. Small left pleural effusion and left basilar enhancing compressive atelec tasis is also seen. Scattered parenchymal benign granulomas, calcified, are similar to the prior exam .. MEDIASTINUM: The heart is again enlarged. There is a solitary filling defect within a segmental arter y to the right lower lobe on series 3 image 44 there is nonocclusive indicative of a pulmonary embolu s. Retrospectively this is vaguely seen on the prior exam of 01/08/2017 on series 8 image 34 and has d ecreased in size. There is much better opacification of the segmental pulmonary artery and today's ex amination than on the prior. There are no greater than 1 cm hilar or mediastinal lymph nodes. Calci fied hilar granulomas are again noted. No pericardial effusion is seen. Extensive calcific changes o f the thoracic aorta and coronary arteries are present. Ascending thoracic aorta is within normal staples its measuring 3.8 cm. OTHER: Multiple calcified benign splenic granulomas are present. Small amount of perisplenic ascites is seen. Extensive calcific atheromatous changes of the visualized abdominal aorta and its branches a re noted. Multiple old healed right posterior lateral fracture deformities and left lateral fracture deformities are present. IMPRESSION: 1. Chronic nonocclusive solitary right lower lobe segmental pulmonary embolus retrospectively seen on the prior exam of 01/08/2017 and decrease in size from the prior exam. Opacification of the pulmonary arteries is much better on today's examination than on the prior. 2. Findings suggesting right middle lobe pneumonia. 3. Moderate right and small left pleural effusions with resultant bibasilar subsegmental compressive atelectasis. 4. Extensive vascular calcifications of the thoracic aorta, coronary arteries and visualized upper ab dominal aorta.
--- NOTE | 2017-08-16 16:04 | HP ---
HISTORY AND PHYSICAL DATE OF SERVICE: 08/15/2017 CHIEF COMPLAINTS: Fall and ETOH as well as some cough and right knee pain. HISTORY OF PRESENT ILLNESS: This 82-year-old gentleman with a past medical history of multiple medical problems, including atrial ablation, COPD, diabetes, GERD, hypertension, being followed by Dr. Gee in the outpatient setting, apparently had a fall. Also the patient has a history of significant ETOH. A chest x-ray showed right lower lobe pneumonia. Patient was admitted for further evaluation and treatment. The patient also had some withdrawal symptoms. There is no history of any fever, rigor or chills. No history of headache, loss of consciousness, seizures. PAST MEDICAL HISTORY: 1. History of COPD. 2. Atrial fibrillation. 3. Diabetes mellitus. 4. Hypertension. 5. DJD. 6. History of pneumonia. 7. History of bowel resection. MEDICATIONS PRIOR TO ADMISSION: 1. Eyedrops. 2. Glucophage 250 mg b.i.d. 3. Aldactone 50 mg daily. 4. Lopressor 25 mg p.o. t.i.d. 5. Synthroid 100 mcg p.o. daily. 6. Lanoxin 125 mcg p.o. daily. 7. Symbicort 160/4.5 two puffs b.i.d. 8. Ventolin HFA one to two puffs q.i.d. ALLERGIES: ASPIRIN. FAMILY HISTORY: History of asthma, CVA, TIA, pacemaker, smoking in the family. SOCIAL HISTORY: History of alcohol intake. History of smoking. REVIEW OF SYSTEMS: ENT: Diminished hearing. Diminished vision. CARDIOVASCULAR SYSTEM: No angina, palpitations. RESPIRATORY SYSTEM: As mentioned earlier. GI: No nausea, vomiting. : No dysuria or retention. NERVOUS SYSTEM: No numbness, weakness. ALLERGY/IMMUNOLOGY: No asthma, hayfever. MUSCULOSKELETAL: As mentioned earlier. HEMATOLOGY/ONCOLOGY: No history of anemia. ENDOCRINE: History of diabetes, hypothyroidism. CONSTITUTIONAL: As mentioned earlier. DERMATOLOGY: Negative. RHEUMATOLOGY: Negative. PSYCHIATRY: As mentioned earlier. PHYSICAL EXAMINATION: Patient alert and oriented x3. The pulse is 81, blood pressure 107/69, respiration 16, temperature 98.7, pulse ox 98% on 2 L. HEENT: Conjunctivae normal. Oral mucosa moist. NECK: No jugular venous distention. No carotid bruit. No lymph node enlargement. CARDIOVASCULAR SYSTEM: S1, S2 muffled. RESPIRATORY SYSTEM: Breath sounds diminished at the bases. Scattered rhonchi and crackles. ABDOMEN: Soft, nontender. No mass palpable. LEGS: No edema. No swelling. NERVOUS SYSTEM: Higher functions as mentioned earlier. Moves all 4 limbs. No focal motor or sensory deficit. LYMPHATICS: No lymph node palpable in neck, axillae or groin. SKIN: No ulcer, rash, bleeding. LABS: WBC 7.8, hemoglobin 10.5, plasma lactic acid 3.1. ASSESSMENT: 1. Right lower lobe pneumonia, possibly Gram-negative; rule out aspiration with possible sepsis. 2. Chronic obstructive pulmonary disease. 3. History of ethanol and ethanol withdrawal. 4. History of fall and gait dysfunction. 5. Chronic persistent atrial fibrillation. 6. Elevated plasma lactic acid with possible sepsis, present on admission. 7. Anemia. 8. History atrial fibrillation. 9. History of chronic obstructive pulmonary disease. 10.Diabetes mellitus, type 2. 11.Gastroesophageal reflux disease. 12.Hypertension. 13.History of degenerative joint disease. 14.History of pneumonia. 15.History of hypothyroidism. 16.History multilobar pneumonia recently. 17.History of chronic atrial fibrillation. 18.Bowel resection. RECOMMENDATIONS AND DISCUSSION: I recommend to continue current medication, continue symptomatic treatment, broad- spectrum IV antibiotics. Patient apparently lives by himself. I would also recommend public health social worker evaluation as well as [facility] protocol. Continue the rest of the medications. DVT prophylaxis. Prognosis guarded because of multiple complex medical issues. Further recommendations to follow. Bronchodilators. The prognosis guarded because of multiple complex medical issues. Further recommendations to follow. MMODL / IJN: [id number] /
--- NOTE | 2017-08-16 16:09 | CDI ---
Last Revision, June 2017 Documentation Clarification Form Date: 08/16/2017 4:02:00 PM From: Nicki Villanueva RN, CCDS Admit Date: 08/14/2017 8:54:00 PM Patient Name: Jose Chakraborty Visit Number: [id number] ATTENTION: The Clinical Documentation Specialists (CDI) and [facility] Coding Staff appreciate your assistance in clarifying documentation. Please respond to the clarification below the line at the bottom and electronically sign. The CDI & [facility] Coding staff will review the response and follow-up if needed. Please note: Queries are made part of the Legal Health Record. If you have any questions, please contact the author of this message via ITS. Dr. Hua Kinney A diagnosis of anemia lacks specificity to accurately reflect your patients severity of condition and clarification is needed. History/Risk Factors: chronic anemia, atrial Fib, Cancer-thyroid/proatate/skin, gerd, htn, oa, copd, ETOH Clinical indicators: Hemoglobin: 10.5/9.4 Hematocrit: 32.9/29.6 Treatment: 500 cc IVF Bolus Labs AM daily In order to capture the severity of condition, please clarify the type of anemia and etiology if known: Acute blood loss anemia Acute on chronic blood loss anemia Chronic blood loss anemia Iron deficiency anemia Anemia of chronic disease Drug induced anemia Anemia due to malignancy Nutritional anemia Anemia of chronic kidney disease Unable to determine Other, please specify Please continue to document in your progress notes and discharge summary in order to capture severity of illness and risk of mortality. Include clinical findings that support your diagnosis. Anemia of chronic disease MTDD
--- NOTE | 2017-08-16 16:19 | PN ---
PROGRESS NOTE DATE OF SERVICE: 08/16/2017 This 82-year-old gentleman who was admitted with a fall and weakness and history of ETOH also was found to have pneumonia on the right side. The patient is on broad - spectrum IV antibiotics. CT scan of the chest has been requested. No chest pain. No palpitations. No fever. Past medical history reviewed. REVIEW OF SYSTEMS: CARDIOVASCULAR SYSTEM: No angina, palpitations. RESPIRATORY SYSTEM: As mentioned earlier. GI: As mentioned earlier. : No dysuria or retention. NERVOUS SYSTEM: Diffusely weak. CURRENT MEDICATIONS: Current medications are reviewed and include: 1. Tylenol 650 q.6 p.r.n. 2. [place] 5 mg q.6 p.r.n. 3. DuoNeb q.i.d. and p.r.n. 4. Symbicort 160/4.5 two puffs b.i.d. 5. Lanoxin 125 mcg p.o. b.i.d. 6. Lasix 40 mg b.i.d. IV. 7. Heparin subcutaneously b.i.d. 8. NovoLog. 9. Levaquin 500 mg daily. 10.Synthroid. 11.Ativan. 12.CIWA protocol. 13.Glucophage 250 mg p.o. b.i.d. 14.Lopressor 25 mg p.o. t.i.d. 15.Vancomycin. 16.Habitrol 14 daily. PHYSICAL EXAMINATION: Patient is alert, oriented x3. Pulse is 84, blood pressure 134/70, respiration 16, temperature 97.9, pulse ox 99% on 2 L. HEENT: Conjunctivae normal. Oral mucosa moist. NECK: No jugular venous distention. No carotid bruit. No lymph node enlargement. CARDIOVASCULAR SYSTEM: S1, S2 muffled. RESPIRATORY SYSTEM: Breath sounds diminished at the bases. Scattered rhonchi and crackles. ABDOMEN: Soft, nontender. No mass palpable. LEGS: No edema. No swelling. NERVOUS SYSTEM: Moves all 4 limbs. Mild diffuse weakness. LABS: WBC 7.2, hemoglobin 9.4. Accu-Cheks are noted. ASSESSMENT: 1. Acute right lower lobe pneumonia, possibly Gram-negative with sepsis, present on admission. 2. Diabetes mellitus, type 2, possibly steroid-induced. 3. Anemia. 4. History of ethanol and ethanol withdrawals. 5. History of atrial fibrillation, chronic, persistent. 6. History of chronic obstructive pulmonary disease. 7. History of diabetes mellitus, type 2. 8. History of gastroesophageal reflux disease. 9. Hypertension. 10.History of multilobar pneumonia recently. 11.Chronic atrial fibrillation. 12.Thyroid cancer with thyroidectomy. 13.History of duodenal ulcer. 14.History of alcohol on a daily basis and smoking, also. RECOMMENDATION AND DISCUSSION: In this 82-year-old gentleman who presented with multiple complex medical issues , we will monitor the patient closely, continue with the broad-spectrum IV antibiotics. Bronchodilators. Monitor blood sugars closely. Closely follow with Dr. Ortega. See orders for further details. DVT prophylaxis. Lactic acid is normalized. Further recommendations to follow. MMODL / IJN: [id number] / MELYSSA
--- NOTE | 2017-08-16 16:46 | P.PN ---
Subjective Progress Note Date: 08/16/17 Principal diagnosis: Persistent right lower lobe pneumonia, aspiration likely, versus healthcare acquired 82-year-old male patient with history of COPD, chronic persistent atrial fibrillation with controlled ventricular response not on long-term anticoagulation secondary to GI bleed, alcoholism and and frequent falls. He also has diabetes mellitus, hypertension, gastroesophageal reflux disease, chronic tobacco use and daily alcohol abuse. The patient presented to the ED with chief complaint right knee pain. The patient stated that he had a chronic weakness in the right lower extremity dating for the past 2 years. such, he has been at increased risk of falls. He denied any other injury in the fall. He was able to ambulate after this fall. The patient was recently admitted to the hospital with pneumonia, he denies fever, states he has had a productive cough which he believes is no improvement. He denied chest pain. He denies having dizziness, chest pain, shortness of breath, palpitations, diaphoresis, nausea or vomiting prior to falling. His CXR showed a RLL infiltrates and a small right lower lobe effusion . EKG on arrival reveals atrial fibrillation with no acute changes with digitalis effect and prolonged QT. Consistent with old EKG. Laboratory data reviewed, hemoglobin 10.5, platelets 221, potassium 3.9, creatinine 0.69, lactic acid on admission 3.1 repeat 1.8. Based on the abnormal CXR, a pulmonary consultation was requested. On 08/16/2017 patient seen in follow-up on the surgical floor. Resting comfortably in bed, denies any acute distress. Lung sounds are diminished, no rhonchi or wheezes auscultated. On 2 L per nasal cannula with O2 sat at 99%. Afebrile, vital signs are stable. Urine and blood culture show no growth at the 24-hour nelson. No signs of delirium tremens, patient is somewhat irritable. He has evidence of 2+ pitting edema in bilateral lower extremities, he was started on IV Lasix per cardiology. Objective - Vital Signs Vital signs: Vital Signs Temp 97.7 F 08/16/17 15:00 Pulse 69 08/16/17 15:00 Resp 16 08/16/17 15:00 BP 122/78 08/16/17 15:00 Pulse Ox 99 08/16/17 15:00 Intake & Output 08/15/17 08/16/17 08/16/17 18:59 06:59 18:59 Intake Total 600 3000 Balance 600 3000 Weight 74.389 kg Intake: IV 600 600 Sodium Chloride 0.9% 1, 600 600 000 ml @ 75 mls/hr IV . [id number] [facility] Rx#:[id number] Intake, IV Titration 850 Amount Sodium Chloride 0.9% 1, 600 000 ml @ 75 mls/hr IV . [id number] [facility] Rx#:[id number] Vancomycin 1,500 mg In 250 Sodium Chloride 0.9% 250 ml @ 125 mls/hr IVPB Q12HR [facility] Rx#:[id number] Oral 1550 Other: Voiding Method Incontinent Incontinent Incontinent # Voids 2 # Bowel Movements 1 - Exam GENERAL EXAM: Alert, 82-year-old white male, somewhat irritable, but in no distress HEAD: Normocephalic/atraumatic. EYES: Normal reaction of pupils, equal size. Conjunctiva pink, sclera white. NOSE: Clear with pink turbinates. THROAT: No erythema or exudates. NECK: No masses, no JVD, no thyroid enlargement, no adenopathy. CHEST: No chest wall deformity. Symmetrical expansion. LUNGS: Equal air entry with no crackles, wheeze, rhonchi or dullness. CVS: Irregular rate and rhythm, normal S1 and S2, no gallops, no murmurs, no rubs ABDOMEN: Soft, nontender. No hepatosplenomegaly, normal bowel sounds, no guarding or rigidity. EXTREMITIES: No clubbing, no cyanosis, 2+ pulses and upper and lower extremities. There is 2+ pitting bilateral lower leg edema MUSCULOSKELETAL: Muscle strength and tone normal. Right knee is swollen, painful with limited range of motion, no warmth or redness noted SPINE: No scoliosis or deformity SKIN: No rashes CENTRAL NERVOUS SYSTEM: Alert and oriented -3. No focal deficits, tone is normal in all 4 extremities. PSYCHIATRIC: Alert and oriented -3. Irritable - Labs CBC & Chem 7: 08/16/17 06:14 08/16/17 06:14 Labs: Abnormal Lab Results - Last 24 Hours (Table) 08/15/17 08/15/17 08/15/17 Range/Units 11:00 16:38 20:52 RBC (4.30-5.90) m/uL Hgb (13.0-17.5) gm/dL Hct (39.0-53.0) % MCV (80.0-100.0) fL MCH (25.0-35.0) pg RDW (11.5-15.5) % Lymphocytes # (1.0-4.8) k/uL Chloride (98-107) mmol/L Glucose (74-99) mg/dL POC Glucose (mg/dL) 394 H 356 H (75-99) mg/dL Hemoglobin A1c 6.9 H (4.0-6.0) % 08/16/17 08/16/17 08/16/17 Range/Units 06:14 06:14 06:46 RBC 2.67 L (4.30-5.90) m/uL Hgb 9.4 L (13.0-17.5) gm/dL Hct 29.6 L (39.0-53.0) % MCV 111.0 H (80.0-100.0) fL MCH 35.3 H (25.0-35.0) pg RDW 15.9 H (11.5-15.5) % Lymphocytes # 0.5 L (1.0-4.8) k/uL Chloride 108 H (98-107) mmol/L Glucose 158 H (74-99) mg/dL POC Glucose (mg/dL) 291 H (75-99) mg/dL Hemoglobin A1c (4.0-6.0) % 08/16/17 Range/Units 11:20 RBC (4.30-5.90) m/uL Hgb (13.0-17.5) gm/dL Hct (39.0-53.0) % MCV (80.0-100.0) fL MCH (25.0-35.0) pg RDW (11.5-15.5) % Lymphocytes # (1.0-4.8) k/uL Chloride (98-107) mmol/L Glucose (74-99) mg/dL POC Glucose (mg/dL) 216 H (75-99) mg/dL Hemoglobin A1c (4.0-6.0) % Microbiology - Last 24 Hours (Table) 08/15/17 18:50 Urine Culture - Preliminary Urine,Catheterized 08/14/17 19:30 Blood Culture - Preliminary Blood No Growth after 24 hours Assessment and Plan Plan: Assessment: #1. Acute right lower lobe pneumonia, healthcare acquired vs aspiration. Chest x-ray from 08/14/2017 shows creased airspace opacity in the right lower lobe since the previous study on 2017. Patient was hospitalized for right lower lobe pneumonia and discharged home on 08/02/2017 on outpatient course of Ceftin and prednisone taper. #2. 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 COPD exacerbation, due to the above #4. Lactic acidosis, present on admission, the asthma lactic acid of 3.1, possibly related to hypoperfusion, responded well to IV fluids, subsequent Actiq Essick came down to 1.8. #5. Right knee pain and swelling, post fall at home, x-rays of the right knee and pelvis were obtained and are negative for any acute bony abnormality or dislocation. #6. Recent admission for right lower lobe pneumonia, was discharged home on on outpatient course of Ceftin. #7. Chronic persistent atrial fibrillation with controlled ventricular response , currently not on any anticoagulation due to his history of GI bleeding #8. Elevated proBNP, his most recent echo from 01/10/2017 shows an EF 55-60%, there is mild pulmonary hypertension with right ventricular systolic pressure of 43 mmHg. This is consistent with mild diastolic heart failure #9 Chronic EtOH abuse #10. Chronic nicotine dependence, down to less than a pack a day, carries a 40 year smoking history of up to 2 packs a day #11. Macrocytic anemia #12. Diabetes mellitus #13. Hypertension #14. Enlarged prostate #15. History of thyroid cancer with thyroidectomy, on levothyroid #16. GERD #17. History of duodenal ulcer Plan: Continue Levaquin and vancomycin, obtain sputum cultures. CT chest on 2017 shows chronic nonocclusive solitary right lower lobe segmental pulmonary embolus retrospectively seen on the prior exam on 01/08/2017 and decrease in size from the prior exam. Opacification the pulmonary arteries is much better on today's exam been on the prior. Right lower lobe pneumonia, and moderate right and small left pleural effusions with resultant bibasilar subsegmental compressive atelectasis. Continue Symbicort and nebulized treatments. IV diuresis per cardiology. Monitor for signs of delirium tremens, and decrease the fluids down to KVO. I performed a history & physical examination of the patient and discussed their management with my nurse practitioner, Sujatha Barron. I reviewed the nurse practitioner's note and agree with the documented findings and plan of care. Lung sounds are positive for diminished breath sounds. The findings and the impression was discussed with the patient. I attest to the documentation by the nurse practitioner. Time with Patient: Less than 30
[2017-08-16 17:26] LABS: Glucose,Whole Blood 281 mg/dL (75-99)
[2017-08-16] MEDS ORDERED: VANCOMYCIN TROUGH DUE 1 EACH MISC MISCELLANE ONE (20:00)
[2017-08-16] MEDS: HEPARIN SODIUM,PORCINE 5,000 UNIT/ML 1 ML VIAL SQ SCH (20:37)
[2017-08-16 20:38] LABS: Glucose,Whole Blood 340 mg/dL (75-99)
[2017-08-16] MEDS ORDERED: LEVOFLOXACIN 500 MG TAB PO SCH (21:00)
[2017-08-17] MEDS ORDERED: LORazepam 2 MG/ML INJ ONE ×3 (01:45)
[2017-08-17] MEDS: LORazepam 2 MG/ML INJ IV PRN ×2 (04:38→14:02)
[2017-08-17] MEDS: PIPERACILLIN-TAZOBACTAM 3.375 GM in DEXTROSE/WATER 1 50ML.BAG IVPB SCH ×4 (04:47→21:57)
[2017-08-17] MEDS: LEVOTHYROXINE 100 MCG TAB PO SCH (05:44)
[2017-08-17 07:15] LABS: Glucose,Whole Blood 141 mg/dL (75-99)
[2017-08-17] MEDS: SYMBICORT 160-4.5 MCG INHALER INHALATION SCH ×2 (07:22→19:46)
[2017-08-17] MEDS: IPRATROPIUM-ALBUTEROL 3 ML NEB INHALATION SCH ×4 (07:23→19:46)
[2017-08-17] MEDS: VANCOMYCIN 1,500 MG in SODIUM CHLORIDE 0.9% 250 ML IVPB SCH (09:10)
[2017-08-17] MEDS: INSULIN ASPART 100 UNIT/ML 1 ML 10 ML VIAL SQ SCH ×4 (09:10→21:58)
[2017-08-17 10:15] LABS: Anion Gap 8 mmol/L; Blood Urea Nitrogen 16 mg/dL (9-20); Calcium 8.8 mg/dL (8.4-10.2); Carbon Dioxide 28 mmol/L (22-30); Chloride 102 mmol/L (98-107); Glucose 119 mg/dL (74-99); Potassium 3.5 mmol/L (3.5-5.1); Sodium 138 mmol/L (137-145)
[2017-08-17 11:25] LABS: Basophils % (A) 0 %; Eosinophils # (A) 0.1 k/uL (0-0.7); Eosinophils % (A) 2 %; HCT 29.8 % (39.0-53.0); HGB 9.2 gm/dL (13.0-17.5); Hypochromasia Moderate; Lymphocytes # (A) 0.4 k/uL (1.0-4.8); Lymphocytes % (A) 9 %; MCH 35.6 pg (25.0-35.0); MCHC 30.8 g/dL (31.0-37.0); MCV 115.4 fL (80.0-100.0); Macrocytosis Marked; Mean Platelet Volume 8.8; Monocytes # (A) 0.2 k/uL (0-1.0); Monocytes % (A) 3 %; Neutrophils # (A) 3.9 k/uL (1.3-7.7); Neutrophils % (A) 84 %; Platelet Count 180 k/uL (150-450); RBC 2.58 m/uL (4.30-5.90); RDW 15.7 % (11.5-15.5); WBC 4.7 k/uL (3.8-10.6)
[2017-08-17] MEDS: DIGOXIN 125 MCG TAB PO SCH (11:32)
[2017-08-17] MEDS: METOPROLOL TARTRATE 25 MG TAB PO SCH ×3 (11:32→21:57)
[2017-08-17] MEDS: PANTOPRAZOLE 40 MG TABLET PO SCH (11:32)
[2017-08-17] MEDS: HEPARIN SODIUM,PORCINE 5,000 UNIT/ML 1 ML VIAL SQ SCH ×2 (11:32→21:58)
[2017-08-17] MEDS: NICOTINE 14MG/24HR PATCH TRANSDERM SCH (11:32)
[2017-08-17] MEDS: metFORMIN 500 MG TAB PO SCH ×2 (11:32→18:04)
[2017-08-17] MEDS: predniSONE 20 MG TAB PO SCH (11:32)
[2017-08-17] MEDS: SPIRONOLACTONE 25 MG TAB PO SCH (11:33)
[2017-08-17] MEDS: FUROSEMIDE 10 MG/ML 4 ML VIAL IV SCH (11:34)
[2017-08-17] MEDS: THIAMINE 100 MG TAB PO SCH ×2 (12:06→17:03)
[2017-08-17 12:09] LABS: Glucose,Whole Blood 103 mg/dL (75-99)
--- NOTE | 2017-08-17 12:33 | P.PN ---
Subjective Mr. Chakraborty is a pleasant 82-year-old male past medical history significant for chronic persistent atrial fibrillation with controlled ventricular response not on long-term anticoagulation secondary to GI bleed, ETOH abuse and frequent falls. He also has diabetes mellitus, hypertension, gastroesophageal reflux disease, COPD, chronic tobacco use and daily alcohol abuse. He follows with Dr. Aguillon in the office. We have been consulted to see him secondary to atrial fibrillation. He apparently had a fall at home that was mechanical in nature and possible related to ETOH intoxication. He denies having dizziness, chest pain, shortness of breath, palpitations, diaphoresis, nausea or vomiting prior to falling. He states he got up to turn off the stove and tripped and fell in the doorway onto his right side. At the time of my exam he is seen sitting up in bed in no acute distress. He continues to deny chest pain, shortness of breath, dizziness, palpitations, diaphoresis, nausea or vomiting. EKG on arrival reveals atrial fibrillation with no acute changes with digitalis effect and prolonged QT. Consistent with old EKG. Chest xray positive for right lower lobe pneumonia as well as small right sided pleural effusion. Laboratory data reviewed, hemoglobin 10.5, platelets 221, potassium 3.9, creatinine 0.69, lactic acid on admission 3.1 repeat 1.8. Current cardiac medications include spironolactone 50 mg daily, Lopressor 25 mg 3 times a day and digoxin 125 g daily. Most recent echocardiogram performed 12/2016 reveals preserved LV systolic function with EF 55-60%, mildly enlarged RV, moderately enlarged LA, moderate MR and TR, mild pulmonary hypertension with RVSP 43.33 mmHg and mild aortic stenosis. 08/16/2017 Mr. Chakraborty is seen today in follow-up sitting in bed in no acute distress. He denies any chest pain but complains of mild shortness of breath. Telemetry tracings have been unremarkable. ProBNP ordered yesterday is 5,330. Other laboratory data reviewed reveals hgb 9.4 platelets 173, potassium 3.7, creatinine 0.75. He is currently receiving breathing treatments around the clock as well as levaquin and vancomycin for pneumonia. 08/17/2017 The patient is extremely agitated today and requiring a product safety test engineer. He is refusing care and threatening towards staff. Weight is down 4 kg since admission and lower extremity edema has resolved. Respirations are equal and unlabored. Hgb 9.2, plt 180, creatinine 0.84, potassium 3.5. Echocardiogram reveals low-normal EF 50-55% with mild LVH, moderately thickened aortic valve with mild-moderate AR and mild with peak/mean gradient 32.41mmHg /14.95mmHg as well as moderate-severe MR, severe TR and severe pulmonary hypertension with RVSP 82.39mmHg. These findings are all progressively worse from 12/2016. CT of the chest yesterday that revealed chronic non-occlusive solitary right lower lobe PE with decrease in size from previous exam as well as right lower lobe pneumonia, right and left basilar pleural effusions and extensive vascular calcifications. Objective - Vital Signs Vital signs: Vital Signs Temp 97.5 F L 08/17/17 01: Pulse 88 08/17/17 07:00 Resp 18 08/17/17 07:00 BP 118/79 08/17/17 07:00 Pulse Ox 97 08/17/17 07:00 Intake & Output 08/16/17 08/17/17 08/17/17 18:59 06:59 18:59 Intake Total 1240 Output Total 3 Balance 1237 Weight 70 kg Intake: IV 800 Sodium Chloride 0.9% 1, 800 000 ml @ 20 mls/hr IV . Q24H [facility] Rx#:[id number] Oral 440 Output: Urine 3 Other: Voiding Method Incontinent Incontinent # Voids 4 # Bowel Movements 1 1 - Exam Blood pressure 118/79 heart rate 88 afebrile GENERAL: Well-appearing, well-nourished and in no acute distress. NECK: Supple without JVD or thyromegaly. LUNGS: Expiratory wheezes throughout. Respiration equal and unlabored. No rales or rhonchi. HEART: Irregular rate and rhythm with systolic ejection murmur at the base, no rubs or gallops. S1 and S2 heard. EXTREMITIES: Normal range of motion, no edema. No clubbing or cyanosis. Peripheral pulses intact. - Labs CBC & Chem 7: 08/17/17 09:32 08/17/17 09:32 Labs: Abnormal Lab Results - Last 24 Hours (Table) 08/16/17 08/16/17 08/17/17 Range/Units 17:14 20:23 07:10 RBC (4.30-5.90) m/uL Hgb (13.0-17.5) gm/dL Hct (39.0-53.0) % MCV (80.0-100.0) fL MCH (25.0-35.0) pg MCHC (31.0-37.0) g/dL RDW (11.5-15.5) % Glucose (74-99) mg/dL POC Glucose (mg/dL) 281 H 340 H 141 H (75-99) mg/dL 08/17/17 08/17/17 08/17/17 Range/Units 09:32 09:32 11:37 RBC 2.58 L (4.30-5.90) m/uL Hgb 9.2 L (13.0-17.5) gm/dL Hct 29.8 L (39.0-53.0) % MCV 115.4 H (80.0-100.0) fL MCH 35.6 H (25.0-35.0) pg MCHC 30.8 L (31.0-37.0) g/dL RDW 15.7 H (11.5-15.5) % Glucose 119 H (74-99) mg/dL POC Glucose (mg/dL) 103 H (75-99) mg/dL Microbiology - Last 24 Hours (Table) 08/15/17 18:50 Urine Culture - Final Urine,Catheterized 08/14/17 19:30 Blood Culture - Preliminary Blood No Growth after 48 hours Assessment and Plan Assessment: ASSESSMENT 1. Chronic persistent atrial fibrillation with controlled ventricular response 2. Hypertension 3. COPD 4. Diabetes mellitus 5. Pneumonia 6. Chronic tobacco use 7. Alcohol abuse 8. Acute exacerbation of diastolic heart failure with preserved EF. 9. Valvular heart disease PLAN IV lasix can be discontinued and transitioned to PO dose. Continue with metoprolol, digoxin and spironalactone as was previously ordered. Further recommendations based upon clinical course. Nurse Practitioner note has been reviewed, I agree with a documented findings and plan of care. Patient was seen and examined.
[2017-08-17 14:55] LABS: Poikilocytosis (M) Present
--- NOTE | 2017-08-17 14:55 | P.PN ---
<Sujatha Barron M - Last Filed: 08/17/17 14:47> Subjective Progress Note Date: 08/17/17 Principal diagnosis: Persistent right lower lobe pneumonia, aspiration likely, versus healthcare acquired 82-year-old male patient with history of COPD, chronic persistent atrial fibrillation with controlled ventricular response not on long-term anticoagulation secondary to GI bleed, alcoholism and and frequent falls. He also has diabetes mellitus, hypertension, gastroesophageal reflux disease, chronic tobacco use and daily alcohol abuse. The patient presented to the ED with chief complaint right knee pain. The patient stated that he had a chronic weakness in the right lower extremity dating for the past 2 years. such, he has been at increased risk of falls. He denied any other injury in the fall. He was able to ambulate after this fall. The patient was recently admitted to the hospital with pneumonia, he denies fever, states he has had a productive cough which he believes is no improvement. He denied chest pain. He denies having dizziness, chest pain, shortness of breath, palpitations, diaphoresis, nausea or vomiting prior to falling. His CXR showed a RLL infiltrates and a small right lower lobe effusion . EKG on arrival reveals atrial fibrillation with no acute changes with digitalis effect and prolonged QT. Consistent with old EKG. Laboratory data reviewed, hemoglobin 10.5, platelets 221, potassium 3.9, creatinine 0.69, lactic acid on admission 3.1 repeat 1.8. Based on the abnormal CXR, a pulmonary consultation was requested. On 08/16/2017 patient seen in follow-up on the surgical floor. Resting comfortably in bed, denies any acute distress. Lung sounds are diminished, no rhonchi or wheezes auscultated. On 2 L per nasal cannula with O2 sat at 99%. Afebrile, vital signs are stable. Urine and blood culture show no growth at the 24-hour nelson. No signs of delirium tremens, patient is somewhat irritable. He has evidence of 2+ pitting edema in bilateral lower extremities, he was started on IV Lasix per cardiology. On 08/17/2017 patient seen in follow-up on the surgical floor. He is currently sedated, he had received 4 mg of Ativan through the night, per nursing report patient got increasingly agitated and aggressive, confused. Currently resting in bed, vital signs are stable, on 2 L per nasal cannula, with O2 sat at 97%. Afebrile, lung sounds are positive for scattered rhonchi over right lower lobe, diminished lung sounds throughout. CT chest results were reviewed, and shows solitary right lower lobe segmental pulmonary embolus that was retrospectively seen on prior exam of 01/08/2017, and appears to have decreased in size from the prior exam. Right middle lobe pneumonia, and moderate right and small left pleural effusions with resultant bibasilar subsegmental compressive atelectasis. Once the patient is out of the DTs, we will consider right thoracentesis. Objective - Vital Signs Vital signs: Vital Signs Temp 97.5 F L 08/17/17 01:18 Pulse 88 08/17/17 07:00 Resp 18 08/17/17 07:00 BP 118/79 08/17/17 07:00 Pulse Ox 97 08/17/17 07:00 Intake & Output 08/16/17 08/17/17 08/17/17 18:59 06:59 18:59 Intake Total 1240 Output Total 3 Balance 1237 Weight 70 kg Intake: IV 800 Sodium Chloride 0.9% 1, 800 000 ml @ 20 mls/hr IV . Q24H [facility] Rx#:[id number] Oral 440 Output: Urine 3 Other: Voiding Method Incontinent Incontinent # Voids 4 # Bowel Movements 1 1 - Exam GENERAL EXAM: Alert, 82-year-old white male, lethargic, sedated after having received 4 mg of Ativan for DVTs HEAD: Normocephalic/atraumatic. EYES: Normal reaction of pupils, equal size. Conjunctiva pink, sclera white. NOSE: Clear with pink turbinates. THROAT: No erythema or exudates. NECK: No masses, no JVD, no thyroid enlargement, no adenopathy. CHEST: No chest wall deformity. Symmetrical expansion. LUNGS: Equal air entry, diminished breath sounds with rhonchi over right lower lobe CVS: Irregular rate and rhythm, normal S1 and S2, no gallops, no murmurs, no rubs ABDOMEN: Soft, nontender. No hepatosplenomegaly, normal bowel sounds, no guarding or rigidity. EXTREMITIES: No clubbing, no cyanosis, 2+ pulses and upper and lower extremities. There is 2+ pitting bilateral lower leg edema MUSCULOSKELETAL: Muscle strength and tone normal. Right knee is swollen, painful with limited range of motion, no warmth or redness noted SPINE: No scoliosis or deformity SKIN: No rashes CENTRAL NERVOUS SYSTEM: sedated. No focal deficits, tone is normal in all 4 extremities. PSYCHIATRIC: Sedated - Labs CBC & Chem 7: 08/17/17 09:32 08/17/17 09:32 Labs: Abnormal Lab Results - Last 24 Hours (Table) 08/16/17 08/16/17 08/17/17 Range/Units 17:14 20:23 07:10 RBC (4.30-5.90) m/uL Hgb (13.0-17.5) gm/dL Hct (39.0-53.0) % MCV (80.0-100.0) fL MCH (25.0-35.0) pg MCHC (31.0-37.0) g/dL RDW (11.5-15.5) % Glucose (74-99) mg/dL POC Glucose (mg/dL) 281 H 340 H 141 H (75-99) mg/dL 08/17/17 08/17/17 08/17/17 Range/Units 09:32 09:32 11:37 RBC 2.58 L (4.30-5.90) m/uL Hgb 9.2 L (13.0-17.5) gm/dL Hct 29.8 L (39.0-53.0) % MCV 115.4 H (80.0-100.0) fL MCH 35.6 H (25.0-35.0) pg MCHC 30.8 L (31.0-37.0) g/dL RDW 15.7 H (11.5-15.5) % Glucose 119 H (74-99) mg/dL POC Glucose (mg/dL) 103 H (75-99) mg/dL Microbiology - Last 24 Hours (Table) 08/15/17 18:50 Urine Culture - Final Urine,Catheterized 08/14/17 19:30 Blood Culture - Preliminary Blood No Growth after 48 hours Assessment and Plan Plan: Assessment: #1. Acute right lower lobe pneumonia, healthcare acquired vs aspiration. Chest x-ray from 08/14/2017 shows creased airspace opacity in the right lower lobe since the previous study on 2017. Patient was hospitalized for right lower lobe pneumonia and discharged home on 08/02/2017 on outpatient course of Ceftin and prednisone taper. #2. 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 Moderate size right pleural effusion, and small left pleural effusion, possibly parapneumonic, possibly malignant. We'll consider right thoracentesis once the patient is out of the DTs #4. COPD exacerbation, due to the above #5. Lactic acidosis, present on admission, the asthma lactic acid of 3.1, possibly related to hypoperfusion, responded well to IV fluids, subsequent Actiq Essick came down to 1.8. #6. Right knee pain and swelling, post fall at home, x-rays of the right knee and pelvis were obtained and are negative for any acute bony abnormality or dislocation. #7. Recent admission for right lower lobe pneumonia, was discharged home on on outpatient course of Ceftin. #8. Chronic persistent atrial fibrillation with controlled ventricular response , currently not on any anticoagulation due to his history of GI bleeding #9. Elevated proBNP, his most recent echo from 01/10/2017 shows an EF 55-60%, there is mild pulmonary hypertension with right ventricular systolic pressure of 43 mmHg. This is consistent with mild diastolic heart failure #10 Chronic EtOH abuse #11. Chronic nicotine dependence, down to less than a pack a day, carries a 40 year smoking history of up to 2 packs a day #12. Macrocytic anemia #13. Diabetes mellitus #14. Hypertension #15. Enlarged prostate #16. History of thyroid cancer with thyroidectomy, on levothyroid #17. GERD #18. History of duodenal ulcer Plan: Continue current antibiotics, Levaquin and ankle Meissen, nebulized treatments. CT chest shows moderate-sized right pleural effusion, possibly parapneumonic or possibly malignant. We will consider right thoracentesis once the patient is out of DTs. Continue all other medical treatments. I performed a history & physical examination of the patient and discussed their management with my nurse practitioner, Sujatha Barron. I reviewed the nurse practitioner's note and agree with the documented findings and plan of care. Lung sounds are positive for diminished breath sounds, with scattered rhonchi over right lower lobe. The findings and the impression was discussed with the patient. I attest to the documentation by the nurse practitioner. Time with Patient: Less than 30 <Artinian,Víctor - Last Filed: 08/17/17 18:25> Objective - Vital Signs Vital signs: Vital Signs Temp 97.7 F 08/17/17 15:00 Pulse 68 08/17/17 15:00 Resp 16 08/17/17 15:00 BP 113/69 08/17/17 15:00 Pulse Ox 98 08/17/17 15:00 Intake & Output 08/16/17 08/17/17 08/17/17 18:59 06:59 18:59 Intake Total 1240 Output Total 3 Balance 1237 Weight 70 kg Intake: IV 800 Sodium Chloride 0.9% 1, 800 000 ml @ 20 mls/hr IV . Q24H [facility] Rx#:[id number] Oral 440 Output: Urine 3 Other: Voiding Method Incontinent Incontinent # Voids 4 # Bowel Movements 1 1 - Labs CBC & Chem 7: 08/17/17 09:32 08/17/17 09:32 Labs: Abnormal Lab Results - Last 24 Hours (Table) 08/16/17 08/17/17 08/17/17 Range/Units 20:23 07:10 09:32 RBC 2.58 L (4.30-5.90) m/uL Hgb 9.2 L (13.0-17.5) gm/dL Hct 29.8 L (39.0-53.0) % MCV 115.4 H (80.0-100.0) fL MCH 35.6 H (25.0-35.0) pg MCHC 30.8 L (31.0-37.0) g/dL RDW 15.7 H (11.5-15.5) % Lymphocytes # 0.4 L (1.0-4.8) k/uL Glucose (74-99) mg/dL POC Glucose (mg/dL) 340 H 141 H (75-99) mg/dL 08/17/17 08/17/17 08/17/17 Range/Units 09:32 11:37 16:46 RBC (4.30-5.90) m/uL Hgb (13.0-17.5) gm/dL Hct (39.0-53.0) % MCV (80.0-100.0) fL MCH (25.0-35.0) pg MCHC (31.0-37.0) g/dL RDW (11.5-15.5) % Lymphocytes # (1.0-4.8) k/uL Glucose 119 H (74-99) mg/dL POC Glucose (mg/dL) 103 H 132 H (75-99) mg/dL Microbiology - Last 24 Hours (Table) 08/15/17 18:50 Urine Culture - Final Urine,Catheterized 08/14/17 19:30 Blood Culture - Preliminary Blood No Growth after 48 hours Assessment and Plan Plan: The patient's CAT scan was reviewed and the patient has a right-sided pleural effusion that needs to be drained after the patient recovers from his acute delirium tremens. I tested above-mentioned formation. This is a joint evaluation that was done along with a nurse practitioner.
--- NOTE | 2017-08-17 16:40 | PN ---
PROGRESS NOTE DATE OF SERVICE: 08/17/2017 This 82-year-old gentleman who was admitted with a fall and weakness and history of ETOH abuse also had acute right lower lobe pneumonia. The patient is on antibiotics. Patient is also extremely weak. PT/OT are evaluating the patient also. The patient is also going through withdrawals. The patient is confused. PHYSICAL EXAMINATION: Pulse 63, blood pressure 107/60, respiration 16, temperature 97.2, pulse ox 96% on room air. HEENT: Conjunctivae normal. Oral mucosa moist. NECK: No jugular venous distention. No carotid bruit. No lymph node enlargement. CARDIOVASCULAR SYSTEM: S1, S2 muffled. RESPIRATORY SYSTEM: Breath sounds diminished at the bases. A few scattered rhonchi and crackles. ABDOMEN: Soft, nontender. No mass palpable. LEGS: No edema. No swelling. NERVOUS SYSTEM: Higher functions as mentioned earlier. Moves all 4 limbs. No focal motor or sensory deficit. LYMPHATICS: No lymph node palpable in neck, axillae or groin. SKIN: No ulcer, rash, bleeding. LAB STUDIES: WBC 4.7. Hemoglobin is 9.2. ASSESSMENT: 1. Acute right lower lobe pneumonia, possibly Gram-negative with sepsis, present on admission. 2. Diabetes mellitus, type 2, possibly steroid-induced. 3. Anemia. 4. Gait dysfunction. 5. Acute delirium tremens and alcohol withdrawal. 6. History of ethanol. 7. History of atrial fibrillation, chronic, persistent. 8. History of chronic obstructive pulmonary disease. 9. History of diabetes mellitus, type 2. 10.History of gastroesophageal reflux disease. 11.Hypertension, essential. 12.History of multilobar pneumonia recently. 13.History of chronic atrial fibrillation. 14.Thyroid cancer with thyroidectomy. 15.History of duodenal ulcer. 16.History of alcohol on a daily basis and smoking. RECOMMENDATIONS AND DISCUSSION: I recommend to continue current medication, continue symptomatic treatment. CIWA protocol. Continue with antibiotics. Closely follow with Pulmonary. PT/OT evaluation. Possible ECF rehab. Guarded prognosis. Further recommendations to follow. MMODL / IJN: [id number] /
[2017-08-17 17:04] LABS: Glucose,Whole Blood 132 mg/dL (75-99)
[2017-08-17 20:50] LABS: Glucose,Whole Blood 118 mg/dL (75-99)
[2017-08-18] MEDS: VANCOMYCIN 1,500 MG in SODIUM CHLORIDE 0.9% 250 ML IVPB SCH ×2 (02:18→16:55)
[2017-08-18] MEDS: LEVOTHYROXINE 100 MCG TAB PO SCH (06:25)
[2017-08-18] MEDS: PIPERACILLIN-TAZOBACTAM 3.375 GM in DEXTROSE/WATER 1 50ML.BAG IVPB SCH ×3 (06:31→20:50)
[2017-08-18] MEDS: IPRATROPIUM-ALBUTEROL 3 ML NEB INHALATION SCH ×4 (07:14→19:10)
[2017-08-18] MEDS: SYMBICORT 160-4.5 MCG INHALER INHALATION SCH ×2 (07:14→19:10)
[2017-08-18 07:35] LABS: Glucose,Whole Blood 76 mg/dL (75-99)
[2017-08-18] MEDS: SODIUM CHLORIDE 0.9% 1,000 ML IV SCH (07:40)
[2017-08-18] MEDS: metFORMIN 500 MG TAB PO SCH ×3 (07:53→17:13)
[2017-08-18] MEDS: INSULIN ASPART 100 UNIT/ML 1 ML 10 ML VIAL SQ SCH ×4 (07:53→20:51)
[2017-08-18] MEDS: PANTOPRAZOLE 40 MG TABLET PO SCH (07:54)
[2017-08-18] MEDS: DIGOXIN 125 MCG TAB PO SCH (07:54)
[2017-08-18] MEDS: FUROSEMIDE 20 MG TAB PO SCH (07:54)
[2017-08-18] MEDS: HEPARIN SODIUM,PORCINE 5,000 UNIT/ML 1 ML VIAL SQ SCH ×2 (07:55→20:50)
[2017-08-18] MEDS: METOPROLOL TARTRATE 25 MG TAB PO SCH ×2 (07:55→17:14)
[2017-08-18] MEDS: NICOTINE 14MG/24HR PATCH TRANSDERM SCH (07:56)
[2017-08-18] MEDS: predniSONE 20 MG TAB PO SCH (07:57)
[2017-08-18] MEDS: SPIRONOLACTONE 25 MG TAB PO SCH (07:57)
[2017-08-18] MEDS: THIAMINE 100 MG TAB PO SCH ×2 (07:59→17:14)
[2017-08-18 09:18] LABS: Basophils % (A) 1 %; Eosinophils # (A) 0.1 k/uL (0-0.7); Eosinophils % (A) 3 %; HCT 33.2 % (39.0-53.0); HGB 10.3 gm/dL (13.0-17.5); Lymphocytes # (A) 0.4 k/uL (1.0-4.8); Lymphocytes % (A) 8 %; MCH 34.3 pg (25.0-35.0); MCV 110.7 fL (80.0-100.0); Macrocytosis Marked; Mean Platelet Volume 7.7; Monocytes # (A) 0.2 k/uL (0-1.0); Monocytes % (A) 5 %; Neutrophils # (A) 4.3 k/uL (1.3-7.7); Neutrophils % (A) 83 %; Platelet Count 218 k/uL (150-450); RDW 14.6 % (11.5-15.5); WBC 5.1 k/uL (3.8-10.6)
[2017-08-18 09:30] LABS: Anion Gap 8 mmol/L; Blood Urea Nitrogen 14 mg/dL (9-20); Calcium 8.7 mg/dL (8.4-10.2); Carbon Dioxide 28 mmol/L (22-30); Chloride 103 mmol/L (98-107); Glucose 173 mg/dL (74-99); Potassium 3.9 mmol/L (3.5-5.1); Sodium 139 mmol/L (137-145)
[2017-08-18 12:03] LABS: Glucose,Whole Blood >600 mg/dL (75-99)
[2017-08-18 12:03] LABS: Glucose,Whole Blood 471 mg/dL (75-99)
[2017-08-18] MEDS ORDERED: INSULIN ASPART 100 UNIT/ML 1 ML 10 ML VIAL SQ ONE ×3 (12:30→14:20)
--- NOTE | 2017-08-18 12:45 | P.PN ---
Subjective Progress Note Date: 08/18/17 Mr. Chakraborty is a pleasant 82-year-old male past medical history significant for chronic persistent atrial fibrillation with controlled ventricular response not on long-term anticoagulation secondary to GI bleed, ETOH abuse and frequent falls. He also has diabetes mellitus, hypertension, gastroesophageal reflux disease, COPD, chronic tobacco use and daily alcohol abuse. He follows with Dr. Aguillon in the office. We have been consulted to see him secondary to atrial fibrillation. He apparently had a fall at home that was mechanical in nature and possible related to ETOH intoxication. He denies having dizziness, chest pain, shortness of breath, palpitations, diaphoresis, nausea or vomiting prior to falling. He states he got up to turn off the stove and tripped and fell in the doorway onto his right side. At the time of my exam he is seen sitting up in bed in no acute distress. He continues to deny chest pain, shortness of breath, dizziness, palpitations, diaphoresis, nausea or vomiting. EKG on arrival reveals atrial fibrillation with no acute changes with digitalis effect and prolonged QT. Consistent with old EKG. Chest xray positive for right lower lobe pneumonia as well as small right sided pleural effusion. Laboratory data reviewed, hemoglobin 10.5, platelets 221, potassium 3.9, creatinine 0.69, lactic acid on admission 3.1 repeat 1.8. Current cardiac medications include spironolactone 50 mg daily, Lopressor 25 mg 3 times a day and digoxin 125 g daily. Most recent echocardiogram performed 12/2016 reveals preserved LV systolic function with EF 55-60%, mildly enlarged RV, moderately enlarged LA, moderate MR and TR, mild pulmonary hypertension with RVSP 43.33 mmHg and mild aortic stenosis. 08/16/2017 Mr. Chakraborty is seen today in follow-up sitting in bed in no acute distress. He denies any chest pain but complains of mild shortness of breath. Telemetry tracings have been unremarkable. ProBNP ordered yesterday is 5,330. Other laboratory data reviewed reveals hgb 9.4 platelets 173, potassium 3.7, creatinine 0.75. He is currently receiving breathing treatments around the clock as well as levaquin and vancomycin for pneumonia. 08/17/2017 The patient is extremely agitated today and requiring a safety coordinator. He is refusing care and threatening towards staff. Weight is down 4 kg since admission and lower extremity edema has resolved. Respirations are equal and unlabored. Hgb 9.2, plt 180, creatinine 0.84, potassium 3.5. Echocardiogram reveals low-normal EF 50-55% with mild LVH, moderately thickened aortic valve with mild-moderate AR and mild with peak/mean gradient 32.41mmHg /14.95mmHg as well as moderate-severe MR, severe TR and severe pulmonary hypertension with RVSP 82.39mmHg. These findings are all progressively worse from 12/2016. CT of the chest yesterday that revealed chronic non-occlusive solitary right lower lobe PE with decrease in size from previous exam as well as right lower lobe pneumonia, right and left basilar pleural effusions and extensive vascular calcifications. 08/18/2017 Mr. Chakraborty is sitting up in no acute distress at the time of my exam. He is calm and pleasant as well. His weight is down another kilogram. He denies chest pain , shorntess of breath, dizziness, nausea or vomiting. Hgb 10.3, creatinine 0.82. Vital sign have remained stable. Objective - Vital Signs Vital signs: Vital Signs Temp 98.8 F 08/18/17 07:52 Pulse 83 08/18/17 08:00 Resp 18 08/18/17 08:00 BP 119/59 08/18/17 07:52 Pulse Ox 94 L 08/18/17 07:52 Intake & Output 08/17/17 08/18/17 08/18/17 18:59 06:59 18:59 Intake Total 240 Balance 240 Weight 69 kg 69 kg Intake: Oral 240 Other: Voiding Method Incontinent Incontinent # Voids 1 1 # Bowel Movements 1 - Exam Blood pressure 119/59 heart rate 83 afebrile GENERAL: Well-appearing, well-nourished and in no acute distress. NECK: Supple without JVD or thyromegaly. LUNGS: Respirations equal and unlabored. No wheezes or rales. Scattered rhonchi. HEART: Irregular rate and rhythm with systolic ejection murmur at the base, no rubs or gallops. S1 and S2 heard. EXTREMITIES: Normal range of motion, no edema. No clubbing or cyanosis. Peripheral pulses intact. - Labs CBC & Chem 7: 08/18/17 08:53 08/18/17 08:53 Labs: Abnormal Lab Results - Last 24 Hours (Table) 08/17/17 08/17/17 08/17/17 Range/Units 09:32 16:46 20:48 RBC 2.58 L (4.30-5.90) m/uL Hgb 9.2 L (13.0-17.5) gm/dL Hct 29.8 L (39.0-53.0) % MCV 115.4 H (80.0-100.0) fL MCH 35.6 H (25.0-35.0) pg MCHC 30.8 L (31.0-37.0) g/dL RDW 15.7 H (11.5-15.5) % Lymphocytes # 0.4 L (1.0-4.8) k/uL Glucose (74-99) mg/dL POC Glucose (mg/dL) 132 H 118 H (75-99) mg/dL 08/18/17 08/18/17 08/18/17 Range/Units 08:53 08:53 11:58 RBC 3.00 L (4.30-5.90) m/uL Hgb 10.3 L (13.0-17.5) gm/dL Hct 33.2 L (39.0-53.0) % MCV 110.7 H (80.0-100.0) fL MCH (25.0-35.0) pg MCHC (31.0-37.0) g/dL RDW (11.5-15.5) % Lymphocytes # (1.0-4.8) k/uL Glucose 173 H (74-99) mg/dL POC Glucose (mg/dL) >600 H (75-99) mg/dL 08/18/17 Range/Units 12:00 RBC (4.30-5.90) m/uL Hgb (13.0-17.5) gm/dL Hct (39.0-53.0) % MCV (80.0-100.0) fL MCH (25.0-35.0) pg MCHC (31.0-37.0) g/dL RDW (11.5-15.5) % Lymphocytes # (1.0-4.8) k/uL Glucose (74-99) mg/dL POC Glucose (mg/dL) 471 H (75-99) mg/dL Microbiology - Last 24 Hours (Table) 08/14/17 19:30 Blood Culture - Preliminary Blood No Growth after 72 hours Assessment and Plan Assessment: ASSESSMENT 1. Chronic persistent atrial fibrillation with controlled ventricular response 2. Hypertension 3. COPD 4. Diabetes mellitus 5. Pneumonia 6. Chronic tobacco use 7. Alcohol abuse 8. Acute exacerbation of diastolic heart failure with preserved EF. 9. Valvular heart disease PLAN From cardiology perspective we will continue to see him as needed. Please feel free to call with questions or concerns. Continue with metoprolol, digoxin, lasix and spironalactone as was previously ordered. Follow up with Dr. Aguillon upon discharge. Nurse Practitioner note has been reviewed, I agree with a documented findings and plan of care. Patient was seen and examined.
[2017-08-18 13:05] LABS: Glucose,Whole Blood 380 mg/dL (75-99)
[2017-08-18 13:05] LABS: Glucose,Whole Blood >600 mg/dL (75-99)
[2017-08-18 14:16] LABS: Glucose,Whole Blood 342 mg/dL (75-99)
--- NOTE | 2017-08-18 14:39 | P.PN ---
<Sujatha Barron M - Last Filed: 08/18/17 14:32> Subjective Progress Note Date: 08/18/17 Principal diagnosis: Persistent right lower lobe pneumonia, aspiration likely, versus healthcare acquired 82-year-old male patient with history of COPD, chronic persistent atrial fibrillation with controlled ventricular response not on long-term anticoagulation secondary to GI bleed, alcoholism and and frequent falls. He also has diabetes mellitus, hypertension, gastroesophageal reflux disease, chronic tobacco use and daily alcohol abuse. The patient presented to the ED with chief complaint right knee pain. The patient stated that he had a chronic weakness in the right lower extremity dating for the past 2 years. such, he has been at increased risk of falls. He denied any other injury in the fall. He was able to ambulate after this fall. The patient was recently admitted to the hospital with pneumonia, he denies fever, states he has had a productive cough which he believes is no improvement. He denied chest pain. He denies having dizziness, chest pain, shortness of breath, palpitations, diaphoresis, nausea or vomiting prior to falling. His CXR showed a RLL infiltrates and a small right lower lobe effusion . EKG on arrival reveals atrial fibrillation with no acute changes with digitalis effect and prolonged QT. Consistent with old EKG. Laboratory data reviewed, hemoglobin 10.5, platelets 221, potassium 3.9, creatinine 0.69, lactic acid on admission 3.1 repeat 1.8. Based on the abnormal CXR, a pulmonary consultation was requested. On 08/16/2017 patient seen in follow-up on the surgical floor. Resting comfortably in bed, denies any acute distress. Lung sounds are diminished, no rhonchi or wheezes auscultated. On 2 L per nasal cannula with O2 sat at 99%. Afebrile, vital signs are stable. Urine and blood culture show no growth at the 24-hour nelson. No signs of delirium tremens, patient is somewhat irritable. He has evidence of 2+ pitting edema in bilateral lower extremities, he was started on IV Lasix per cardiology. On 08/17/2017 patient seen in follow-up on the surgical floor. He is currently sedated, he had received 4 mg of Ativan through the night, per nursing report patient got increasingly agitated and aggressive, confused. Currently resting in bed, vital signs are stable, on 2 L per nasal cannula, with O2 sat at 97%. Afebrile, lung sounds are positive for scattered rhonchi over right lower lobe, diminished lung sounds throughout. CT chest results were reviewed, and shows solitary right lower lobe segmental pulmonary embolus that was retrospectively seen on prior exam of 01/08/2017, and appears to have decreased in size from the prior exam. Right middle lobe pneumonia, and moderate right and small left pleural effusions with resultant bibasilar subsegmental compressive atelectasis. Once the patient is out of the DTs, we will consider right thoracentesis. On 08/18/2017 patient seen in follow-up on the surgical floor. He is much more awake, confused, but more cooperative this morning. Vital signs stable, he remains on room air with O2 sat at 94-96%. Lung sounds are positive for diminished breath sounds over right lower lobe, with a few bibasilar crackles. Urine and blood culture show no growth. Continues on combination of vancomycin and Zosyn, nebulized treatments. We will obtain ultrasound of the chest today, to evaluate the size the right effusion. We'll potentially proceed with the right thoracentesis tomorrow. This was discussed with the patient and patient' s daughter. Asks and benefits were discussed, patient's daughter who resides in [place], is in agreement with the plan. Objective - Vital Signs Vital signs: Vital Signs Temp 98.8 F 08/18/17 07:52 Pulse 83 08/18/17 08:00 Resp 18 08/18/17 08:00 BP 119/59 08/18/17 07:52 Pulse Ox 94 L 08/18/17 07:52 Intake & Output 08/17/17 08/18/17 08/18/17 18:59 06:59 18:59 Intake Total 240 Balance 240 Weight 69 kg 69 kg Intake: Oral 240 Other: Voiding Method Incontinent Incontinent # Voids 1 1 # Bowel Movements 1 - Exam GENERAL EXAM: Alert, 82-year-old white male, confused, but cooperative HEAD: Normocephalic/atraumatic. EYES: Normal reaction of pupils, equal size. Conjunctiva pink, sclera white. NOSE: Clear with pink turbinates. THROAT: No erythema or exudates. NECK: No masses, no JVD, no thyroid enlargement, no adenopathy. CHEST: No chest wall deformity. Symmetrical expansion. LUNGS: Equal air entry, diminished breath sounds with rhonchi over bilateral bases. CVS: Irregular rate and rhythm, normal S1 and S2, no gallops, no murmurs, no rubs ABDOMEN: Soft, nontender. No hepatosplenomegaly, normal bowel sounds, no guarding or rigidity. EXTREMITIES: No clubbing, no cyanosis, 2+ pulses and upper and lower extremities. There is 2+ pitting bilateral lower leg edema MUSCULOSKELETAL: Muscle strength and tone normal. Right knee is swollen, painful with limited range of motion, no warmth or redness noted SPINE: No scoliosis or deformity SKIN: No rashes CENTRAL NERVOUS SYSTEM: sedated. No focal deficits, tone is normal in all 4 extremities. PSYCHIATRIC: Sedated - Labs CBC & Chem 7: 08/18/17 08:53 08/18/17 08:53 Labs: Abnormal Lab Results - Last 24 Hours (Table) 08/17/17 08/17/17 08/17/17 Range/Units 09:32 16:46 20:48 RBC 2.58 L (4.30-5.90) m/uL Hgb 9.2 L (13.0-17.5) gm/dL Hct 29.8 L (39.0-53.0) % MCV 115.4 H (80.0-100.0) fL MCH 35.6 H (25.0-35.0) pg MCHC 30.8 L (31.0-37.0) g/dL RDW 15.7 H (11.5-15.5) % Lymphocytes # 0.4 L (1.0-4.8) k/uL Glucose (74-99) mg/dL POC Glucose (mg/dL) 132 H 118 H (75-99) mg/dL 08/18/17 08/18/17 08/18/17 Range/Units 08:53 08:53 11:58 RBC 3.00 L (4.30-5.90) m/uL Hgb 10.3 L (13.0-17.5) gm/dL Hct 33.2 L (39.0-53.0) % MCV 110.7 H (80.0-100.0) fL MCH (25.0-35.0) pg MCHC (31.0-37.0) g/dL RDW (11.5-15.5) % Lymphocytes # 0.4 L (1.0-4.8) k/uL Glucose 173 H (74-99) mg/dL POC Glucose (mg/dL) >600 H (75-99) mg/dL 08/18/17 08/18/17 08/18/17 Range/Units 12:00 13:00 13:01 RBC (4.30-5.90) m/uL Hgb (13.0-17.5) gm/dL Hct (39.0-53.0) % MCV (80.0-100.0) fL MCH (25.0-35.0) pg MCHC (31.0-37.0) g/dL RDW (11.5-15.5) % Lymphocytes # (1.0-4.8) k/uL Glucose (74-99) mg/dL POC Glucose (mg/dL) 471 H >600 H 380 H (75-99) mg/dL 08/18/17 Range/Units 14:14 RBC (4.30-5.90) m/uL Hgb (13.0-17.5) gm/dL Hct (39.0-53.0) % MCV (80.0-100.0) fL MCH (25.0-35.0) pg MCHC (31.0-37.0) g/dL RDW (11.5-15.5) % Lymphocytes # (1.0-4.8) k/uL Glucose (74-99) mg/dL POC Glucose (mg/dL) 342 H (75-99) mg/dL Microbiology - Last 24 Hours (Table) 08/14/17 19:30 Blood Culture - Preliminary Blood No Growth after 72 hours Assessment and Plan Plan: Assessment: #1. Acute right lower lobe pneumonia, healthcare acquired vs aspiration. Chest x-ray from 08/14/2017 shows creased airspace opacity in the right lower lobe since the previous study on 2017. Patient was hospitalized for right lower lobe pneumonia and discharged home on 08/02/2017 on outpatient course of Ceftin and prednisone taper. #2. 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 Moderate size right pleural effusion, and small left pleural effusion, possibly parapneumonic, possibly malignant. We'll consider right thoracentesis once the patient is out of the DTs, we'll obtain ultrasound of the chest today. #4. COPD exacerbation, due to the above #5. Lactic acidosis, present on admission, the asthma lactic acid of 3.1, possibly related to hypoperfusion, responded well to IV fluids, subsequent Actiq Essick came down to 1.8. #6. Right knee pain and swelling, post fall at home, x-rays of the right knee and pelvis were obtained and are negative for any acute bony abnormality or dislocation. #7. Recent admission for right lower lobe pneumonia, was discharged home on on outpatient course of Ceftin. #8. Chronic persistent atrial fibrillation with controlled ventricular response , currently not on any anticoagulation due to his history of GI bleeding #9. Elevated proBNP, his most recent echo from 01/10/2017 shows an EF 55-60%, there is mild pulmonary hypertension with right ventricular systolic pressure of 43 mmHg. This is consistent with mild diastolic heart failure #10 Chronic EtOH abuse #11. Chronic nicotine dependence, down to less than a pack a day, carries a 40 year smoking history of up to 2 packs a day #12. Macrocytic anemia #13. Diabetes mellitus #14. Hypertension #15. Enlarged prostate #16. History of thyroid cancer with thyroidectomy, on levothyroid #17. GERD #18. History of duodenal ulcer Plan: We'll obtain ultrasound of the chest today, markings of the right pleural effusion. This was discussed with the patient and the patient's daughter who is currently in [place]. Continue current antibiotics, Levaquin and ankle Meissen, nebulized treatments. Continue all other medical treatments. I performed a history & physical examination of the patient and discussed their management with my nurse practitioner, Sujatha Barron. I reviewed the nurse practitioner's note and agree with the documented findings and plan of care. Lung sounds are positive for diminished breath sounds, with scattered rhonchi over right lower lobe. The findings and the impression was discussed with the patient. I attest to the documentation by the nurse practitioner. Time with Patient: Less than 30 <Víctor Ortega - Last Filed: 08/18/17 16:13> Objective - Vital Signs Vital signs: Vital Signs Temp 97.9 F 01/25/18 14:38 Pulse 76 08/18/17 14:38 Resp 17 08/18/17 14:38 BP 100/62 08/18/17 14:38 Pulse Ox 95 08/18/17 14:38 Intake & Output 08/17/17 08/18/17 08/18/17 18:59 06:59 18:59 Intake Total 600 Balance 600 Weight 69 kg 69 kg Intake: Oral 600 Other: Voiding Method Incontinent Incontinent # Voids 1 1 # Bowel Movements 1 - Labs CBC & Chem 7: 08/18/17 08:53 08/18/17 08:53 Labs: Abnormal Lab Results - Last 24 Hours (Table) 08/17/17 08/17/17 08/18/17 Range/Units 16:46 20:48 08:53 RBC 3.00 L (4.30-5.90) m/uL Hgb 10.3 L (13.0-17.5) gm/dL Hct 33.2 L (39.0-53.0) % MCV 110.7 H (80.0-100.0) fL Lymphocytes # 0.4 L (1.0-4.8) k/uL Glucose (74-99) mg/dL POC Glucose (mg/dL) 132 H 118 H (75-99) mg/dL 08/18/17 08/18/17 08/18/17 Range/Units 08:53 11:58 12:00 RBC (4.30-5.90) m/uL Hgb (13.0-17.5) gm/dL Hct (39.0-53.0) % MCV (80.0-100.0) fL Lymphocytes # (1.0-4.8) k/uL Glucose 173 H (74-99) mg/dL POC Glucose (mg/dL) >600 H 471 H (75-99) mg/dL 08/18/17 08/18/17 08/18/17 Range/Units 13:00 13:01 14:14 RBC (4.30-5.90) m/uL Hgb (13.0-17.5) gm/dL Hct (39.0-53.0) % MCV (80.0-100.0) fL Lymphocytes # (1.0-4.8) k/uL Glucose (74-99) mg/dL POC Glucose (mg/dL) >600 H 380 H 342 H (75-99) mg/dL 08/18/17 08/18/17 08/18/17 Range/Units 15:27 15:29 15:34 RBC (4.30-5.90) m/uL Hgb (13.0-17.5) gm/dL Hct (39.0-53.0) % MCV (80.0-100.0) fL Lymphocytes # (1.0-4.8) k/uL Glucose (74-99) mg/dL POC Glucose (mg/dL) 394 H 515 H 280 H (75-99) mg/dL Microbiology - Last 24 Hours (Table) 08/14/17 19:30 Blood Culture - Preliminary Blood No Growth after 72 hours Assessment and Plan Plan: Joint evaluation done within this practitioner. The patient has a pleural effusion that needs to be drained. Discussed with the daughter and we'll proceed with a thoracentesis after obtaining ultrasound markings. We'll continue to follow.
[2017-08-18 15:33] LABS: Glucose,Whole Blood 394 mg/dL (75-99)
[2017-08-18 15:33] LABS: Glucose,Whole Blood 515 mg/dL (75-99)
[2017-08-18 15:37] LABS: Glucose,Whole Blood 280 mg/dL (75-99)
[2017-08-18 16:15] LABS: Glucose,Whole Blood 183 mg/dL (75-99); Glucose,Whole Blood 194 mg/dL (75-99)
[2017-08-18 16:21] LABS: Basophils % (A) 0 %; Eosinophils % (A) 0 %; HCT 31.2 % (39.0-53.0); Lymphocytes # (A) 0.3 k/uL (1.0-4.8); Lymphocytes % (A) 6 %; MCH 35.5 pg (25.0-35.0); MCHC 32.1 g/dL (31.0-37.0); MCV 110.4 fL (80.0-100.0); Macrocytosis Marked; Monocytes # (A) 0.1 k/uL (0-1.0); Monocytes % (A) 3 %; Neutrophils # (A) 4.1 k/uL (1.3-7.7); Neutrophils % (A) 91 %; Platelet Count 200 k/uL (150-450); RBC 2.83 m/uL (4.30-5.90); RDW 14.5 % (11.5-15.5); WBC 4.5 k/uL (3.8-10.6)
[2017-08-18 16:49] LABS: Polychromasia Present
[2017-08-18 17:11] LABS: Glucose,Whole Blood 149 mg/dL (75-99)
[2017-08-18 17:25] LABS: ALT 21 U/L (21-72); AST 17 U/L (17-59); Albumin 2.9 g/dL (3.5-5.0); Alkaline Phosphatase 63 U/L (38-126); Anion Gap 13 mmol/L; Blood Urea Nitrogen 15 mg/dL (9-20); Calcium 8.8 mg/dL (8.4-10.2); Carbon Dioxide 27 mmol/L (22-30); Chloride 101 mmol/L (98-107); Glucose 181 mg/dL (74-99); Potassium 3.6 mmol/L (3.5-5.1); Sodium 141 mmol/L (137-145); Total Bilirubin 0.6 mg/dL (0.2-1.3); Total Protein 5.5 g/dL (6.3-8.2)
--- NOTE | 2017-08-18 20:27 | PN ---
PROGRESS NOTE DATE OF SERVICE: 08/18/2017 This 82-year-old gentleman who was admitted with acute right lower lobe pneumonia is being closely monitored. Dr. Ortega has evaluated the patient for possible pleural effusion. The patient was confused yesterday. Sensorium is improving. PT/OT has evaluated the patient. ECF rehab is being planned. On examination, alert and oriented x2. Pulse is 83, blood pressure 119/59, respiration 18, temperature 98.8, pulse ox 94% on room air. HEENT: Conjunctivae normal. NECK: No jugular venous distention. CARDIOVASCULAR SYSTEM: S1, S2 muffled. RESPIRATORY SYSTEM: Breath sounds diminished at the bases. A few scattered rhonchi and crackles. ABDOMEN: Soft, non-tender. LEGS: No edema. No swelling. NERVOUS SYSTEM: No focal deficit. Labs show WBC 4.2, hemoglobin 10. Accu-Cheks noted. ASSESSMENT: 1. Acute right lower lobe pneumonia, possibly Gram-negative sepsis, present on admission. 2. Diabetes mellitus, type 2, possible steroid-induced. 3. Chronic non-occlusive solitary right lower lobe segmental pulmonary embolism. 4. Anemia. 5. Gait dysfunction. 6. Acute delirium tremens with alcohol withdrawal. 7. History of ethanol. 8. History of atrial fibrillation, chronic, persistent. 9. History of chronic obstructive pulmonary disease. 10.History of diabetes mellitus, type 2. 11.History of gastroesophageal reflux disease. 12.Hypertension, essential. 13.History of multilobar pneumonia recently. 14.History of chronic atrial fibrillation. 15.History of thyroid cancer with thyroidectomy. 16.History of duodenal ulcer. 17.History of alcohol on a daily basis and smoking. RECOMMENDATIONS AND DISCUSSION: In this 82-year-old gentleman who presented with multiple complex medical issues, we will monitor the patient closely, continue the current medications, continue symptomatic treatment, continue the bronchodilators, antibiotics. Otherwise, closely follow with Dr. Ortega. Chest ultrasound was ordered. We will continue to monitor. Guarded prognosis because of multiple complex medical issues. Possible ECF rehab. Further recommendations to follow. MMODL / IJN: [id number] /
[2017-08-18 20:29] LABS: Glucose,Whole Blood 144 mg/dL (75-99)
--- NOTE | 2017-08-18 20:54 | US ---
EXAMINATION TYPE: US chest DATE OF EXAM: 08/18/2017 COMPARISON: NONE CLINICAL HISTORY: pleural effusion marking. Pleural effusions bilaterally EXAM MEASUREMENTS: Right Pleural Effusion fluid pocket: 12.1 cm Right skin to fluid thickness: 2.4 cm Left Pleural Effusion fluid pocket: 1.6 cm Left skin to fluid thickness: 1.3 cm Right side marked for possible thoracentesis outside the dept. Left side NOT marked for possible thoracentesis outside the dept. Pulmonologists are able to review the images in the patient?s EMR. IMPRESSIONS: 1. Bilateral pleural effusions right larger than left.
[2017-08-19] MEDS: METOPROLOL TARTRATE 25 MG TAB PO SCH ×4 (05:53→20:59)
[2017-08-19] MEDS: PIPERACILLIN-TAZOBACTAM 3.375 GM in DEXTROSE/WATER 1 50ML.BAG IVPB SCH ×3 (05:55→20:58)
[2017-08-19] MEDS: LEVOTHYROXINE 100 MCG TAB PO SCH ×2 (05:55→07:29)
[2017-08-19 07:13] LABS: Basophils % (A) 0 %; Eosinophils % (A) 1 %; HCT 32.6 % (39.0-53.0); HGB 10.3 gm/dL (13.0-17.5); Hypochromasia Slight; Lymphocytes # (A) 0.5 k/uL (1.0-4.8); Lymphocytes % (A) 13 %; MCH 35.9 pg (25.0-35.0); MCHC 31.6 g/dL (31.0-37.0); MCV 113.5 fL (80.0-100.0); Macrocytosis Marked; Mean Platelet Volume 8.8; Monocytes # (A) 0.2 k/uL (0-1.0); Monocytes % (A) 5 %; Neutrophils # (A) 3.3 k/uL (1.3-7.7); Neutrophils % (A) 81 %; Platelet Count 210 k/uL (150-450); RBC 2.87 m/uL (4.30-5.90); RDW 15.6 % (11.5-15.5)
[2017-08-19] MEDS: SODIUM CHLORIDE 0.9% 1,000 ML IV SCH ×2 (07:24→21:32)
[2017-08-19 07:28] LABS: Anion Gap 10 mmol/L; Blood Urea Nitrogen 19 mg/dL (9-20); Carbon Dioxide 28 mmol/L (22-30); Chloride 103 mmol/L (98-107); Glucose 137 mg/dL (74-99); Potassium 3.7 mmol/L (3.5-5.1); Sodium 141 mmol/L (137-145)
[2017-08-19] MEDS: HEPARIN SODIUM,PORCINE 5,000 UNIT/ML 1 ML VIAL SQ SCH ×2 (07:28→20:58)
[2017-08-19] MEDS: NICOTINE 14MG/24HR PATCH TRANSDERM SCH (07:28)
[2017-08-19] MEDS: FUROSEMIDE 20 MG TAB PO SCH (07:29)
[2017-08-19] MEDS: predniSONE 20 MG TAB PO SCH (07:30)
[2017-08-19] MEDS: THIAMINE 100 MG TAB PO SCH ×2 (07:30→16:13)
[2017-08-19 07:31] LABS: Glucose,Whole Blood 148 mg/dL (75-99)
[2017-08-19] MEDS: SPIRONOLACTONE 25 MG TAB PO SCH (07:31)
[2017-08-19] MEDS: metFORMIN 500 MG TAB PO SCH ×2 (07:34→16:13)
[2017-08-19] MEDS: IPRATROPIUM-ALBUTEROL 3 ML NEB INHALATION SCH ×4 (07:36→19:05)
[2017-08-19] MEDS: PANTOPRAZOLE 40 MG TABLET PO SCH (07:36)
[2017-08-19] MEDS: DIGOXIN 125 MCG TAB PO SCH (07:37)
[2017-08-19] MEDS: INSULIN ASPART 100 UNIT/ML 1 ML 10 ML VIAL SQ SCH ×4 (07:39→20:53)
[2017-08-19] MEDS: SYMBICORT 160-4.5 MCG INHALER INHALATION SCH ×2 (07:47→19:05)
[2017-08-19] MEDS: VANCOMYCIN 1,500 MG in SODIUM CHLORIDE 0.9% 250 ML IVPB SCH ×2 (09:35→23:36)
[2017-08-19 11:23] LABS: Glucose,Whole Blood 279 mg/dL (75-99)
[2017-08-19 11:58] VITALS: BMI 23.1
--- NOTE | 2017-08-19 12:57 | P.PN ---
Subjective Progress Note Date: 08/19/17 Principal diagnosis: Persistent right lower lobe pneumonia, aspiration likely, versus healthcare acquired 82-year-old male patient with history of COPD, chronic persistent atrial fibrillation with controlled ventricular response not on long-term anticoagulation secondary to GI bleed, alcoholism and and frequent falls. He also has diabetes mellitus, hypertension, gastroesophageal reflux disease, chronic tobacco use and daily alcohol abuse. The patient presented to the ED with chief complaint right knee pain. The patient stated that he had a chronic weakness in the right lower extremity dating for the past 2 years. such, he has been at increased risk of falls. He denied any other injury in the fall. He was able to ambulate after this fall. The patient was recently admitted to the hospital with pneumonia, he denies fever, states he has had a productive cough which he believes is no improvement. He denied chest pain. He denies having dizziness, chest pain, shortness of breath, palpitations, diaphoresis, nausea or vomiting prior to falling. His CXR showed a RLL infiltrates and a small right lower lobe effusion . EKG on arrival reveals atrial fibrillation with no acute changes with digitalis effect and prolonged QT. Consistent with old EKG. Laboratory data reviewed, hemoglobin 10.5, platelets 221, potassium 3.9, creatinine 0.69, lactic acid on admission 3.1 repeat 1.8. Based on the abnormal CXR, a pulmonary consultation was requested. On 08/16/2017 patient seen in follow-up on the surgical floor. Resting comfortably in bed, denies any acute distress. Lung sounds are diminished, no rhonchi or wheezes auscultated. On 2 L per nasal cannula with O2 sat at 99%. Afebrile, vital signs are stable. Urine and blood culture show no growth at the 24-hour nelson. No signs of delirium tremens, patient is somewhat irritable. He has evidence of 2+ pitting edema in bilateral lower extremities, he was started on IV Lasix per cardiology. On 08/17/2017 patient seen in follow-up on the surgical floor. He is currently sedated, he had received 4 mg of Ativan through the night, per nursing report patient got increasingly agitated and aggressive, confused. Currently resting in bed, vital signs are stable, on 2 L per nasal cannula, with O2 sat at 97%. Afebrile, lung sounds are positive for scattered rhonchi over right lower lobe, diminished lung sounds throughout. CT chest results were reviewed, and shows solitary right lower lobe segmental pulmonary embolus that was retrospectively seen on prior exam of 01/08/2017, and appears to have decreased in size from the prior exam. Right middle lobe pneumonia, and moderate right and small left pleural effusions with resultant bibasilar subsegmental compressive atelectasis. Once the patient is out of the DTs, we will consider right thoracentesis. On 08/18/2017 patient seen in follow-up on the surgical floor. He is much more awake, confused, but more cooperative this morning. Vital signs stable, he remains on room air with O2 sat at 94-96%. Lung sounds are positive for diminished breath sounds over right lower lobe, with a few bibasilar crackles. Urine and blood culture show no growth. Continues on combination of vancomycin and Zosyn, nebulized treatments. We will obtain ultrasound of the chest today, to evaluate the size the right effusion. We'll potentially proceed with the right thoracentesis tomorrow. This was discussed with the patient and patient' s daughter. Asks and benefits were discussed, patient's daughter who resides in [place], is in agreement with the plan. On 08/19/2017 patient seen in follow-up. He is awake, alert, still remains somewhat confused, but much more cooperative. No signs of agitation, or verbal aggression. Afebrile, vital signs are stable, on 2 L per nasal cannula with pulse ox at 97%. Ultrasound of the chest from 08/18/2017 shows right pleural effusion fluid pocket of 12.1 cm, and left pleural effusion fluid pocket of 1.6 cm. Yesterday we discussed the potential right thoracentesis with the patient and the patient's daughter in [place], today we again spoke to the daughter and the patient about proceeding with a right thoracentesis. Risks and benefits were discussed, and they are agreeable to proceed with the procedure. Lung sounds are positive for diminished air entry over the right lower lobe with bibasilar crackles. Urine and blood cultures remain negative. Patient has been afebrile. Patient continues on combination of Levaquin and vancomycin. Objective - Vital Signs Vital signs: Vital Signs Temp 97.3 F L 08/19/17 07:20 Pulse 84 08/19/17 11:19 Resp 14 08/19/17 11:19 BP 134/70 08/19/17 07:20 Pulse Ox 97 08/19/17 07:20 Intake & Output 08/18/17 08/19/17 08/19/17 18:59 06:59 18:59 Intake Total 600 200 240 Output Total 6 Balance 600 194 240 Weight 69 kg 69 kg Intake: Oral 600 200 240 Output: Urine 6 Other: Voiding Method Incontinent # Voids 1 1 # Bowel Movements 2 2 1 - Exam GENERAL EXAM: Alert, 82-year-old white male, confused, but cooperative HEAD: Normocephalic/atraumatic. EYES: Normal reaction of pupils, equal size. Conjunctiva pink, sclera white. NOSE: Clear with pink turbinates. THROAT: No erythema or exudates. NECK: No masses, no JVD, no thyroid enlargement, no adenopathy. CHEST: No chest wall deformity. Symmetrical expansion. LUNGS: Equal air entry, diminished breath sounds with rhonchi over bilateral bases. CVS: Irregular rate and rhythm, normal S1 and S2, no gallops, no murmurs, no rubs ABDOMEN: Soft, nontender. No hepatosplenomegaly, normal bowel sounds, no guarding or rigidity. EXTREMITIES: No clubbing, no cyanosis, 2+ pulses and upper and lower extremities. There is 2+ pitting bilateral lower leg edema MUSCULOSKELETAL: Muscle strength and tone normal. Right knee is swollen, painful with limited range of motion, no warmth or redness noted SPINE: No scoliosis or deformity SKIN: No rashes CENTRAL NERVOUS SYSTEM: sedated. No focal deficits, tone is normal in all 4 extremities. PSYCHIATRIC: Sedated - Labs CBC & Chem 7: 08/19/17 06:35 08/19/17 06:35 Labs: Abnormal Lab Results - Last 24 Hours (Table) 08/18/17 08/18/17 08/18/17 Range/Units 08:53 13:00 13:01 RBC (4.30-5.90) m/uL Hgb (13.0-17.5) gm/dL Hct (39.0-53.0) % MCV (80.0-100.0) fL MCH (25.0-35.0) pg RDW (11.5-15.5) % Lymphocytes # 0.4 L (1.0-4.8) k/uL Glucose (74-99) mg/dL POC Glucose (mg/dL) >600 H 380 H (75-99) mg/dL Total Protein (6.3-8.2) g/dL Albumin (3.5-5.0) g/dL 08/18/17 08/18/17 08/18/17 Range/Units 14:14 15:27 15:29 RBC (4.30-5.90) m/uL Hgb (13.0-17.5) gm/dL Hct (39.0-53.0) % MCV (80.0-100.0) fL MCH (25.0-35.0) pg RDW (11.5-15.5) % Lymphocytes # (1.0-4.8) k/uL Glucose (74-99) mg/dL POC Glucose (mg/dL) 342 H 394 H 515 H (75-99) mg/dL Total Protein (6.3-8.2) g/dL Albumin (3.5-5.0) g/dL 08/18/17 08/18/17 08/18/17 Range/Units 15:34 16:06 16:06 RBC 2.83 L (4.30-5.90) m/uL Hgb 10.0 L (13.0-17.5) gm/dL Hct 31.2 L (39.0-53.0) % MCV 110.4 H (80.0-100.0) fL MCH 35.5 H (25.0-35.0) pg RDW (11.5-15.5) % Lymphocytes # 0.3 L (1.0-4.8) k/uL Glucose 181 H (74-99) mg/dL POC Glucose (mg/dL) 280 H (75-99) mg/dL Total Protein 5.5 L (6.3-8.2) g/dL Albumin 2.9 L (3.5-5.0) g/dL 08/18/17 08/18/17 08/18/17 Range/Units 16:07 16:07 17:05 RBC (4.30-5.90) m/uL Hgb (13.0-17.5) gm/dL Hct (39.0-53.0) % MCV (80.0-100.0) fL MCH (25.0-35.0) pg RDW (11.5-15.5) % Lymphocytes # (1.0-4.8) k/uL Glucose (74-99) mg/dL POC Glucose (mg/dL) 183 H 194 H 149 H (75-99) mg/dL Total Protein (6.3-8.2) g/dL Albumin (3.5-5.0) g/dL 08/18/17 08/19/17 08/19/17 Range/Units 20:09 06:35 06:35 RBC 2.87 L (4.30-5.90) m/uL Hgb 10.3 L (13.0-17.5) gm/dL Hct 32.6 L (39.0-53.0) % MCV 113.5 H (80.0-100.0) fL MCH 35.9 H (25.0-35.0) pg RDW 15.6 H (11.5-15.5) % Lymphocytes # 0.5 L (1.0-4.8) k/uL Glucose 137 H (74-99) mg/dL POC Glucose (mg/dL) 144 H (75-99) mg/dL Total Protein (6.3-8.2) g/dL Albumin (3.5-5.0) g/dL 08/19/17 08/19/17 Range/Units 07:28 11:22 RBC (4.30-5.90) m/uL Hgb (13.0-17.5) gm/dL Hct (39.0-53.0) % MCV (80.0-100.0) fL MCH (25.0-35.0) pg RDW (11.5-15.5) % Lymphocytes # (1.0-4.8) k/uL Glucose (74-99) mg/dL POC Glucose (mg/dL) 148 H 279 H (75-99) mg/dL Total Protein (6.3-8.2) g/dL Albumin (3.5-5.0) g/dL Microbiology - Last 24 Hours (Table) 08/14/17 19:30 Blood Culture - Preliminary Blood No Growth after 96 hours Assessment and Plan Plan: Assessment: #1. Acute right lower lobe pneumonia, healthcare acquired vs aspiration. Chest x-ray from 08/14/2017 shows creased airspace opacity in the right lower lobe since the previous study on 2017. Patient was hospitalized for right lower lobe pneumonia and discharged home on 08/02/2017 on outpatient course of Ceftin and prednisone taper. #2. 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 Moderate size right pleural effusion, and small left pleural effusion, possibly parapneumonic, possibly malignant. We'll consider right thoracentesis once the patient is out of the DTs, we'll obtain ultrasound of the chest today. #4. COPD exacerbation, due to the above #5. Lactic acidosis, present on admission, the asthma lactic acid of 3.1, possibly related to hypoperfusion, responded well to IV fluids, subsequent Actiq Essick came down to 1.8. #6. Right knee pain and swelling, post fall at home, x-rays of the right knee and pelvis were obtained and are negative for any acute bony abnormality or dislocation. #7. Recent admission for right lower lobe pneumonia, was discharged home on on outpatient course of Ceftin. #8. Chronic persistent atrial fibrillation with controlled ventricular response , currently not on any anticoagulation due to his history of GI bleeding #9. Elevated proBNP, his most recent echo from 01/10/2017 shows an EF 55-60%, there is mild pulmonary hypertension with right ventricular systolic pressure of 43 mmHg. This is consistent with mild diastolic heart failure #10 Chronic EtOH abuse #11. Chronic nicotine dependence, down to less than a pack a day, carries a 40 year smoking history of up to 2 packs a day #12. Macrocytic anemia #13. Diabetes mellitus #14. Hypertension #15. Enlarged prostate #16. History of thyroid cancer with thyroidectomy, on levothyroid #17. GERD #18. History of duodenal ulcer Plan: Ultrasound chest was reviewed, there is a 12.1 cm right pleural effusion fluid pocket. The risks and benefits of the right thoracentesis were discussed with the patient and his daughter in [place], we'll proceed with a right thoracentesis this afternoon. Continue with Levaquin and vancomycin. Nebulized treatments, oral prednisone. Patient continues to improve. Much less agitated today, and much more cooperative and lucid. Discharge planning is in progress for possible transfer to subacute rehab later on today. I performed a history & physical examination of the patient and discussed their management with my nurse practitioner, Sujatha Barron. I reviewed the nurse practitioner's note and agree with the documented findings and plan of care. Lung sounds are positive for diminished breath sounds, with scattered rhonchi over right lower lobe. The findings and the impression was discussed with the patient. I attest to the documentation by the nurse practitioner. Time with Patient: Less than 30
--- NOTE | 2017-08-19 15:00 | XR ---
EXAMINATION TYPE: XR chest 1V portable DATE OF EXAM: 08/19/2017 CLINICAL HISTORY: Status post right-sided thoracentesis TECHNIQUE: 2 AP portable upright views of the chest are obtained. COMPARISON: Chest x-ray from [address] chest from 3 days earlier. FINDINGS: There is interval improvement in right-sided effusion after thoracentesis. No sizable pneu mothorax is seen. There is persistent right lower lobe infiltrate and/or atelectasis. Left lung remai ns clear. Cardiac silhouette size is stable and mildly enlarged with atherosclerotic thoracic aorta. Osseous structures are demineralized. Underlying dextroconvex scoliosis is present. There are healing or healed posterior right lower rib fractures noted. IMPRESSION: Interval improvement in right-sided effusion after thoracentesis. No sizable pneumothorax . Background of cardiomegaly with right lower lobe infiltrate and/or atelectasis redemonstrated.
[2017-08-19 16:42] LABS: Glucose,Whole Blood 342 mg/dL (75-99)
--- NOTE | 2017-08-19 16:46 | P.PCN ---
Date of Procedure: 08/19/17 Preoperative Diagnosis: Right-sided pleural effusion Postoperative Diagnosis: Right-sided pleural effusion Procedure(s) Performed: Thoracentesis Anesthesia: local Pathology: other Condition: stable Disposition: floor Operative Findings: This procedure was done at the bedside. A timeout was obtained. A consent was obtained. The patient was placed in the usual fashion and the procedure was done while him sitting on a side of the bed with arms extended on a bedside table. The right-sided pleural effusion was already marked using an ultrasound. The chest was cleaned using ChloraPrep. Following that the marked site was infiltrated with 1% lidocaine. After achieving adequate anesthesia, a thoracentesis catheter was successfully inserted into the right hemithorax and a total of 1.0 L of light yellowish pleural effusion was obtained from the right hemithorax. The procedure was completed without any complication. The cath was removed. Appropriate dressing was applied and the chest x-ray following the procedure showed no evidence of any pneumothorax. The patient tolerated the procedure well without any complications. The fluid will be sent for analysis.
--- NOTE | 2017-08-19 19:48 | PN ---
PROGRESS NOTE DATE OF SERVICE: 08/19/2017 This 82-year-old gentleman admitted with right pneumonia also had right pleural effusion. Dr. Ortega performed thoracocentesis, and about one liter of light yellowish fluid was removed. The patient is confused. Patient has a significant history of ETOH, also. ECF rehab is also planned. No fever. No cough. On exam pulse is 83, blood pressure 127/78, respiration 16, temperature 98.2, pulse ox 99% on room air. HEENT: Conjunctivae normal. NECK: No jugular venous distention. CARDIOVASCULAR SYSTEM: S1, S2 muffled. RESPIRATORY SYSTEM: Breath sounds diminished at the bases. Scattered rhonchi. Expiratory wheezing also present. ABDOMEN: Soft, non-tender. LEGS: No edema. No swelling. NERVOUS SYSTEM: No focal deficit. Labs are WBC 4, hemoglobin 10. Accu-Cheks noted. ASSESSMENT: 1. Acute right lower lobe pneumonia, possibly Gram-negative with sepsis, present on admission, with right pleural effusion, status post thoracocentesis. 2. Diabetes mellitus, type 2, possibly steroid-induced. 3. History of chronic non-occlusive solitary right lower lobe segmental pulmonary embolism. 4. Anemia. 5. Gait dysfunction. 6. Acute delirium tremens and alcohol withdrawal. 7. History of ethanol. 8. History of atrial ablation, chronic, persistent. 9. History of chronic obstructive pulmonary disease. 10.Diabetes mellitus, type 2. 11.Hypertension, essential. 12.History of multilobar pneumonia recently. 13.History of chronic atrial fibrillation. 14.History of thyroid cancer with thyroidectomy. 15.History of duodenal ulcer. 16.History of ethanol on a daily basis and smoking. RECOMMENDATIONS AND DISCUSSION: I recommend to continue current medication, continue symptomatic treatment. Monitor the patient closely. Closely follow with Pulmonary. PT/OT evaluation. Possible ECF rehab. Guarded prognosis because of multiple complex medical issues. Further recommendations to follow. MMODL / IJN: [id number] /
[2017-08-19 19:59] LABS: Appearance,BF Hazy; Color,BF Yellow
[2017-08-19 20:00] LABS: Nucleated Cells, Body Fluid 45 /uL; RBC, Body Fluid 348 /uL
[2017-08-19 20:15] LABS: Mononuclear WBC,Body Fluid 63 %; Polynuclear WBC,Body Fluid 37 %; Total Cells Counted,Body Fluid 100
[2017-08-19 20:16] LABS: Glucose,Whole Blood 280 mg/dL (75-99)
[2017-08-19] MEDS ORDERED: VANCOMYCIN TROUGH DUE 1 EACH MISC MISCELLANE ONE (23:00)
[2017-08-20] MEDS ORDERED: VANCOMYCIN IV PER PHARMACY 1 EACH MISC MISCELLANE ONE (00:15)
[2017-08-20] MEDS ORDERED: VANCOMYCIN IV PER PHARMACY 1 EACH MISC MISCELLANE PRN (01:00)
[2017-08-20 01:03] VITALS: RESP 16
[2017-08-20 01:43] LABS: Total Protein, Body Fluid 1332 mg/dL
[2017-08-20] MEDS: PIPERACILLIN-TAZOBACTAM 3.375 GM in DEXTROSE/WATER 1 50ML.BAG IVPB SCH (03:48)
[2017-08-20] MEDS: LEVOTHYROXINE 100 MCG TAB PO SCH (05:13)
[2017-08-20 06:50] LABS: Glucose,Whole Blood 172 mg/dL (75-99)
[2017-08-20 07:25] VITALS: BP 128/76
[2017-08-20 07:27] VITALS: TEMP 97.8
[2017-08-20] MEDS: SYMBICORT 160-4.5 MCG INHALER INHALATION SCH (07:57)
[2017-08-20] MEDS: IPRATROPIUM-ALBUTEROL 3 ML NEB INHALATION SCH ×2 (07:57→12:31)
[2017-08-20] MEDS: INSULIN ASPART 100 UNIT/ML 1 ML 10 ML VIAL SQ SCH ×2 (08:10→12:38)
[2017-08-20] MEDS: PANTOPRAZOLE 40 MG TABLET PO SCH (08:12)
[2017-08-20] MEDS: metFORMIN 500 MG TAB PO SCH (08:13)
[2017-08-20] MEDS: FUROSEMIDE 20 MG TAB PO SCH (10:22)
[2017-08-20] MEDS: NICOTINE 14MG/24HR PATCH TRANSDERM SCH (10:23)
[2017-08-20] MEDS: METOPROLOL TARTRATE 25 MG TAB PO SCH (10:23)
[2017-08-20] MEDS: HEPARIN SODIUM,PORCINE 5,000 UNIT/ML 1 ML VIAL SQ SCH (10:23)
[2017-08-20] MEDS: predniSONE 20 MG TAB PO SCH (10:23)
[2017-08-20] MEDS: DIGOXIN 125 MCG TAB PO SCH (10:23)
[2017-08-20] MEDS: SPIRONOLACTONE 25 MG TAB PO SCH (10:24)
[2017-08-20 11:42] LABS: Glucose,Whole Blood 238 mg/dL (75-99)
--- NOTE | 2017-08-20 11:57 | P.DS ---
Providers Date of admission: 08/14/17 20:54 Expected date of discharge: 08/20/17 Attending physician: Ramez Redman Consults: 08/15/17 10:44 Consult Physician Routine Consulting Provider: Geovany Aguillon Consult Reason/Comments: atrial fibrillation Do you want consulting provider notified?: Yes 08/15/17 14:21 Consult Physician Routine Consulting Provider: Víctor Ortega Consult Reason/Comments: pneumonia Do you want consulting provider notified?: Yes Primary care physician: Jesse Gee Hospital Course: FINAL DIAGNOSES: -Acute right lower lobe pneumonia, possibly gram-negative with sepsis, present on admission, with right pleural effusion, status post thoracentesis. -Acute chronic obstructive pulmonary disease exacerbation in a long-standing smoker, present on admission. -Chronic nicotine dependence, patient is a cigarette smoker. -Gastroesophageal reflux disease. -Hypothyroidism. -Chronic thoracic spine osteoarthritis. -Persistent atrial fibrillation, patient is not a candidate for anticoagulation. -Anemia -Gait dysfunction -Acute delirium tremens and alcohol withdrawal. -Diabetes mellitus type 2, chronically on oral hypoglycemics -Essential hypertension HOSPTIAL COURSE: 82-year-old male admitted with right lower lobe pneumonia. Home medications reordered, pulmonology consulted, and antibiotics initiated, nicotine patch provided. Pulmonology evaluated the patient imaging revealed a large pleural effusion patient underwent a bedside thoracentesis for which 1 L fluid of light yellow fluid was removed and sent for culture. Received breathing treatments. Breathing improved. Responded well to treatment. Today, lying in bed appears comfortable. No cough, no fever, vital signs stable. Tolerating his diet up with assistance, and a walker, last BM 08/19/2017. Consultants agreed patient is stable for discharge to subacute rehab, [facility]. PHYSICAL EXAM: CARDIOVASCULAR: First and second sound noted no edema. RESPIRATORY: Respiratory effort normal breath sounds diminished bilaterally to bases with scattered rhonchi and mild expiratory wheezing noted. GI: Abdomen soft nontender liver and spleen not palpable MUSKULOSKELETAL: Ambulatory with assistance and walker PSYCHIATRY: Alert and oriented 2-3, mood and affect normal. Patient was seen and examined by nurse practitioner Esha Lynn in all elements of the case discussed with attending Dr. Redman DISPOSITION: [facility] Patient Condition at Discharge: Stable Plan - Discharge Summary Discharge Rx Participant: No New Discharge Prescriptions: New Acetaminophen Tab [Tylenol] 650 mg PO Q6HR PRN tab PRN Reason: Fever and/ or MILD Pain Furosemide [Lasix] 20 mg PO DAILY tab Ipratropium-Albuterol Nebulize [Duoneb 0.5 mg-3 mg/3 ml Soln] 3 ml INHALATION RT-TID ampul.neb Ipratropium-Albuterol Nebulize [Duoneb 0.5 mg-3 mg/3 ml Soln] 3 ml INHALATION RT-Q4H PRN ampul.neb PRN Reason: Shortness Of Breath Or Wheezing Nicotine 14Mg/24Hr Patch [Habitrol] 1 patch TRANSDERM DAILY patch Pantoprazole [Protonix] 40 mg PO AC-BRKFST tablet.dr predniSONE See Taper PO DAILY tab Thiamine [Vitamin B-1] 100 mg PO BID@1200,1700 tab Continue Naphazoline HCl/Glycerin [Clear Eyes Max Redness Rlf Drp] 1 drop BOTH EYES DAILY PRN PRN Reason: Dry Eye(S) Budesonide-Formot 160-4.5 Mcg [Symbicort 160-4.5 Mcg Inhaler] 2 puff INHALATION RT-BID #1 inhaler Digoxin [Lanoxin] 125 mcg PO DAILY #30 tab Levothyroxine Sodium [Synthroid] 100 mcg PO DAILY@0630 #30 tab metFORMIN HCL [Glucophage] 250 mg PO AC-BID #60 tab Metoprolol Tartrate [Lopressor] 25 mg PO TID #90 tab Albuterol Inhaler [Ventolin Hfa Inhaler] 1 - 2 puff INHALATION RT-QID #0 Spironolactone 50 mg PO DAILY Discharge Medication List Naphazoline HCl/Glycerin [Clear Eyes Max Redness Rlf Drp] 1 drop BOTH EYES DAILY PRN 10/24/16 [History] Budesonide-Formot 160-4.5 Mcg [Symbicort 160-4.5 Mcg Inhaler] 2 puff INHALATION RT-BID #1 inhaler 10/27/16 [Rx] Albuterol Inhaler [Ventolin Hfa Inhaler] 1 - 2 puff INHALATION RT-QID #0 [Rx] Digoxin [Lanoxin] 125 mcg PO DAILY #30 tab 01/13/17 [Rx] Levothyroxine Sodium [Synthroid] 100 mcg PO DAILY@0630 #30 tab 01/13/17 [Rx] Metoprolol Tartrate [Lopressor] 25 mg PO TID #90 tab 01/13/17 [Rx] metFORMIN HCL [Glucophage] 250 mg PO AC-BID #60 tab 01/13/17 [Rx] Spironolactone 50 mg PO DAILY 07/29/17 [History] Acetaminophen Tab [Tylenol] 650 mg PO Q6HR PRN tab 08/20/17 [Rx] Furosemide [Lasix] 20 mg PO DAILY tab 08/20/17 [Rx] Ipratropium-Albuterol Nebulize [Duoneb 0.5 mg-3 mg/3 ml Soln] 3 ml INHALATION RT -Q4H PRN ampul.neb 08/20/17 [Rx] Ipratropium-Albuterol Nebulize [Duoneb 0.5 mg-3 mg/3 ml Soln] 3 ml INHALATION RT -TID ampul.neb 08/20/17 [Rx] Nicotine 14Mg/24Hr Patch [Habitrol] 1 patch TRANSDERM DAILY patch 08/20/17 [Rx] Pantoprazole [Protonix] 40 mg PO AC-BRKFST tablet. 08/20/17 [Rx] Thiamine [Vitamin B-1] 100 mg PO BID@1200,1700 tab 08/20/17 [Rx] predniSONE See Taper PO DAILY tab 08/20/17 [Rx] Follow up Appointment(s)/Referral(s): Geovany Aguillon MD [STAFF PHYSICIAN] - 2 Weeks Jesse Gee MD [Primary Care Provider] - As Needed Ruddy Jaffe DO [STAFF PHYSICIAN] - 08/21/17 Ambulatory/Diagnostic Orders: Complete Blood Count w/diff [LAB.AMB] Location: Determined By Patient Activity/Diet/Wound Care/Special Instructions: consistent carbohydrate diet Discharge Disposition: TRANSFER TO SNF/ECF
[2017-08-20] MEDS: THIAMINE 100 MG TAB PO SCH ×2 (12:38→12:41)
[2017-08-20 12:43] VITALS: PULSE 80
--- NOTE | 2017-08-20 14:15 | P.PN ---
Subjective Progress Note Date: 08/20/17 82-year-old male patient with history of COPD, chronic persistent atrial fibrillation with controlled ventricular response not on long-term anticoagulation secondary to GI bleed, alcoholism and and frequent falls. He also has diabetes mellitus, hypertension, gastroesophageal reflux disease, chronic tobacco use and daily alcohol abuse. The patient presented to the ED with chief complaint right knee pain. The patient stated that he had a chronic weakness in the right lower extremity dating for the past 2 years. such, he has been at increased risk of falls. He denied any other injury in the fall. He was able to ambulate after this fall. The patient was recently admitted to the hospital with pneumonia, he denies fever, states he has had a productive cough which he believes is no improvement. He denied chest pain. He denies having dizziness, chest pain, shortness of breath, palpitations, diaphoresis, nausea or vomiting prior to falling. His CXR showed a RLL infiltrates and a small right lower lobe effusion . EKG on arrival reveals atrial fibrillation with no acute changes with digitalis effect and prolonged QT. Consistent with old EKG. Laboratory data reviewed, hemoglobin 10.5, platelets 221, potassium 3.9, creatinine 0.69, lactic acid on admission 3.1 repeat 1.8. Based on the abnormal CXR, a pulmonary consultation was requested. On 08/16/2017 patient seen in follow-up on the surgical floor. Resting comfortably in bed, denies any acute distress. Lung sounds are diminished, no rhonchi or wheezes auscultated. On 2 L per nasal cannula with O2 sat at 99%. Afebrile, vital signs are stable. Urine and blood culture show no growth at the 24-hour nelson. No signs of delirium tremens, patient is somewhat irritable. He has evidence of 2+ pitting edema in bilateral lower extremities, he was started on IV Lasix per cardiology. On 08/17/2017 patient seen in follow-up on the surgical floor. He is currently sedated, he had received 4 mg of Ativan through the night, per nursing report patient got increasingly agitated and aggressive, confused. Currently resting in bed, vital signs are stable, on 2 L per nasal cannula, with O2 sat at 97%. Afebrile, lung sounds are positive for scattered rhonchi over right lower lobe, diminished lung sounds throughout. CT chest results were reviewed, and shows solitary right lower lobe segmental pulmonary embolus that was retrospectively seen on prior exam of 01/08/2017, and appears to have decreased in size from the prior exam. Right middle lobe pneumonia, and moderate right and small left pleural effusions with resultant bibasilar subsegmental compressive atelectasis. Once the patient is out of the DTs, we will consider right thoracentesis. On 08/18/2017 patient seen in follow-up on the surgical floor. He is much more awake, confused, but more cooperative this morning. Vital signs stable, he remains on room air with O2 sat at 94-96%. Lung sounds are positive for diminished breath sounds over right lower lobe, with a few bibasilar crackles. Urine and blood culture show no growth. Continues on combination of vancomycin and Zosyn, nebulized treatments. We will obtain ultrasound of the chest today, to evaluate the size the right effusion. We'll potentially proceed with the right thoracentesis tomorrow. This was discussed with the patient and patient' s daughter. Asks and benefits were discussed, patient's daughter who resides in [place], is in agreement with the plan. On 08/19/2017 patient seen in follow-up. He is awake, alert, still remains somewhat confused, but much more cooperative. No signs of agitation, or verbal aggression. Afebrile, vital signs are stable, on 2 L per nasal cannula with pulse ox at 97%. Ultrasound of the chest from 08/18/2017 shows right pleural effusion fluid pocket of 12.1 cm, and left pleural effusion fluid pocket of 1.6 cm. Yesterday we discussed the potential right thoracentesis with the patient and the patient's daughter in [place], today we again spoke to the daughter and the patient about proceeding with a right thoracentesis. Risks and benefits were discussed, and they are agreeable to proceed with the procedure. Lung sounds are positive for diminished air entry over the right lower lobe with bibasilar crackles. Urine and blood cultures remain negative. Patient has been afebrile. Patient continues on combination of Levaquin and vancomycin. On 08/20/2017 the patient is being seen for a follow-up. The patient is doing very well. He underwent a thoracentesis yesterday and total of 1 L of fluid was removed from the right lung. Awaiting fluid analysis. Meanwhile the patient's post procedure chest x-ray showed complete expansion of the right lung and there was no evidence of pneumothorax and there was no evidence of any residual pneumonia. The patient is on room air. Has no respiratory distress. No cough or sputum production. He was a being made to transfer this patient back to rehabilitation. Objective - Vital Signs Vital signs: Vital Signs Temp 97.8 F 08/20/17 07:27 Pulse 80 08/20/17 12:43 Resp 16 08/20/17 08:00 BP 128/76 08/20/17 07:25 Pulse Ox 99 08/20/17 07:25 Intake & Output 08/19/17 08/20/17 08/20/17 18:59 06:59 18:59 Intake Total 380 247 180 Output Total 250 Balance 130 247 180 Weight 69.5 kg 68 kg Intake: IV 187 Sodium Chloride 0.9% 1, 187 000 ml @ 20 mls/hr IV . Q24H [facility] Rx#:[id number] Oral 380 60 180 Output: Urine 250 Other: Voiding Method Incontinent # Voids 3 1 1 # Bowel Movements 1 - Exam GENERAL EXAM: Alert, 82-year-old white male, confused, but cooperative HEAD: Normocephalic/atraumatic. EYES: Normal reaction of pupils, equal size. Conjunctiva pink, sclera white. NOSE: Clear with pink turbinates. THROAT: No erythema or exudates. NECK: No masses, no JVD, no thyroid enlargement, no adenopathy. CHEST: No chest wall deformity. Symmetrical expansion. LUNGS: Equal air entry, diminished breath sounds with rhonchi over bilateral bases. CVS: Irregular rate and rhythm, normal S1 and S2, no gallops, no murmurs, no rubs ABDOMEN: Soft, nontender. No hepatosplenomegaly, normal bowel sounds, no guarding or rigidity. EXTREMITIES: No clubbing, no cyanosis, 2+ pulses and upper and lower extremities. There is 2+ pitting bilateral lower leg edema MUSCULOSKELETAL: Muscle strength and tone normal. Right knee is swollen, painful with limited range of motion, no warmth or redness noted SPINE: No scoliosis or deformity SKIN: No rashes CENTRAL NERVOUS SYSTEM: sedated. No focal deficits, tone is normal in all 4 extremities. PSYCHIATRIC: Sedated - Labs CBC & Chem 7: 08/19/17 06:35 08/19/17 06:35 Labs: Abnormal Lab Results - Last 24 Hours (Table) 08/19/17 08/19/17 08/19/17 Range/Units 16:19 20:13 22:47 POC Glucose (mg/dL) 342 H 280 H (75-99) mg/dL Vancomycin Trough 34.1 H* ug/mL 08/20/17 08/20/17 Range/Units 06:46 11:39 POC Glucose (mg/dL) 172 H 238 H (75-99) mg/dL Vancomycin Trough ug/mL Microbiology - Last 24 Hours (Table) 08/14/17 19:30 Blood Culture - Preliminary Blood No Growth after 120 hours Assessment and Plan Plan: #1. Acute right lower lobe pneumonia, healthcare acquired vs aspiration. Chest x-ray from 08/14/2017 shows creased airspace opacity in the right lower lobe since the previous study on 2017. Patient was hospitalized for right lower lobe pneumonia and discharged home on 08/02/2017 on outpatient course of Ceftin and prednisone taper. Repeat chest x-ray shows ongoing abnormalities and opacity in the right lung base and subsequently the findings were further confirmed to be pleural effusion based on the CAT scan of the chest. The patient underwent a thoracentesis a total of 1 L of fluid was drained and the fluid was a transudate. Fluid cytology still pending. Cultures still pending. Meanwhile the patient is doing very well. He tolerated the procedure without any major complications. He'll be released from the hospital today. #2. 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 Moderate size right pleural effusion, and small left pleural effusion, possibly parapneumonic, possibly malignant. We'll consider right thoracentesis once the patient is out of the DTs, we'll obtain ultrasound of the chest today. #4. COPD exacerbation, due to the above #5. Lactic acidosis, present on admission, the asthma lactic acid of 3.1, possibly related to hypoperfusion, responded well to IV fluids, subsequent lactate down to 1.8. #6. Right knee pain and swelling, post fall at home, x-rays of the right knee and pelvis were obtained and are negative for any acute bony abnormality or dislocation. #7. Recent admission for right lower lobe pneumonia, was discharged home on on outpatient course of Ceftin. #8. Chronic persistent atrial fibrillation with controlled ventricular response , currently not on any anticoagulation due to his history of GI bleeding #9. Elevated proBNP, his most recent echo from 01/10/2017 shows an EF 55-60%, there is mild pulmonary hypertension with right ventricular systolic pressure of 43 mmHg. This is consistent with mild diastolic heart failure #10 Chronic EtOH abuse #11. Chronic nicotine dependence, down to less than a pack a day, carries a 40 year smoking history of up to 2 packs a day #12. Macrocytic anemia #13. Diabetes mellitus #14. Hypertension #15. Enlarged prostate #16. History of thyroid cancer with thyroidectomy, on levothyroid #17. GERD #18. History of duodenal ulcer Plan The pleural fluid is a transudate. The patient has completed his antibiotic course. Awaiting fluid cytology and culture results. Agree on the discharge today. Can be followed up on outpatient basis. No active respirations for now.
--- NOTE | 2017-08-20 15:32 | DS ---
DISCHARGE SUMMARY DATE OF SERVICE: 08/20/2017 ATTENDING NOTE: This patient was seen examined by me. I discussed with nurse practitioner, Ms. Lynn. This patient continues to drink at home, smokes cigarettes. He presented weak, tired, was found to have pneumonia with effusion. One liter was removed. The patient was given antibiotics, to which he responded well. The patient's pulse ox on room air is 99%. The patient is tolerating his diet. On examination, lungs reveal decreased breath sounds, expiratory wheezing, mild crackles. Answering questions appropriately. The patient has macrocytic anemia, felt to be likely from chronic alcohol use. The patient also had DTs on this admission, which have now settled down. The patient can be discharged to the ECF. Cleared by Pulmonary, Dr. Ortega. Patient again advised to stop alcohol and smoking. Discharge planning more than 35 minutes. MMSILVERL / SKYEN: [id number] /
[2017-08-20] MEDS ORDERED: VANCOMYCIN TROUGH DUE 1 EACH MISC MISCELLANE ONE (23:00)
[2017-08-21] MEDS ORDERED: VANCOMYCIN 1,250 MG in SODIUM CHLORIDE 0.9% 250 ML IVPB SCH ×3 (06:00)
== END 2017-08-20 13:09 | DRG 871 ==
LOC: EC 18:49 → 4MS4W 20:54 → 3SUR 08-15 04:24
PROVIDERS: ADMIT Hospitalist; ATTEND Hospitalist
PROC: 0W993ZZ Drainage of Right Pleural Cavity, Percutaneous Approach (ICD-10-PCS; principal; 2017-08-19)
DX: A41.9 Sepsis, unspecified organism (principal); I26.99 Other pulmonary embolism without acute cor pulmonale; J69.0 Pneumonitis due to inhalation of food and vomit; I50.33 Acute on chronic diastolic (congestive) heart failure; F10.231 Alcohol dependence with withdrawal delirium; D53.9 Nutritional anemia, unspecified; E11.9 Type 2 diabetes mellitus without complications; E87.2 Acidosis; I48.1 Persistent atrial fibrillation; J44.1 Chronic obstructive pulmonary disease with (acute) exacerbation; J90 Pleural effusion, not elsewhere classified; I27.20 Pulmonary hypertension, unspecified; I11.0 Hypertensive heart disease with heart failure; E89.0 Postprocedural hypothyroidism; F17.210 Nicotine dependence, cigarettes, uncomplicated; I35.0 Nonrheumatic aortic (valve) stenosis; I48.2 Chronic atrial fibrillation; K21.9 Gastro-esophageal reflux disease without esophagitis; K57.90 Diverticulosis of intestine, part unspecified, without perforation or abscess without bleeding; M47.814 Spondylosis without myelopathy or radiculopathy, thoracic region; N40.0 Benign prostatic hyperplasia without lower urinary tract symptoms; R29.6 Repeated falls; S80.01XA Contusion of right knee, initial encounter; W01.0XXA Fall on same level from slipping, tripping and stumbling without subsequent striking against object, initial encounter; Y95 Nosocomial condition; Y92.009 Unspecified place in unspecified non-institutional (private) residence as the place of occurrence of the external cause; Z79.51 Long term (current) use of inhaled steroids; Z79.84 Long term (current) use of oral hypoglycemic drugs; Z79.899 Other long term (current) drug therapy; Z82.3 Family history of stroke; Z82.5 Family history of asthma and other chronic lower respiratory diseases; Z85.46 Personal history of malignant neoplasm of prostate; Z85.828 Personal history of other malignant neoplasm of skin; Z85.850 Personal history of malignant neoplasm of thyroid; Z87.01 Personal history of pneumonia (recurrent); Z87.11 Personal history of peptic ulcer disease; Z90.49 Acquired absence of other specified parts of digestive tract; Z88.6 Allergy status to analgesic agent
CPT/HCPCS: 36415; 70450; 71045; 71046; 71260; 72125; 72170; 76604; 80048; 80053; 80202; 80320; 83036; 83605; 83615; 83880; 84157; 85025; 85610; 85730; 87040; 87086; 89050; 90471; 90715; 93005; 93306; 94640; 94760; 96361; 96365; 96366; 96367; 96372; 96374; 99285

== ENCOUNTER 2017-09-16 15:31 | Inpatient (IN) | payer MEDICARE, OTHER ==
[2017-09-16 16:05] LABS: Anisocytosis Slight; Basophils % (A) 1 %; Eosinophils # (A) 0.1 k/uL (0-0.7); Eosinophils % (A) 1 %; HCT 25.9 % (39.0-53.0); HGB 8.3 gm/dL (13.0-17.5); Lymphocytes # (A) 0.8 k/uL (1.0-4.8); Lymphocytes % (A) 14 %; MCH 32.5 pg (25.0-35.0); Macrocytosis Slight; Mean Platelet Volume 7.5; Monocytes # (A) 0.3 k/uL (0-1.0); Monocytes % (A) 5 %; Neutrophils # (A) 4.2 k/uL (1.3-7.7); Neutrophils % (A) 77 %; Platelet Count 415 k/uL (150-450); RBC 2.55 m/uL (4.30-5.90); RDW 16.4 % (11.5-15.5); WBC 5.4 k/uL (3.8-10.6)
[2017-09-16 16:08] LABS: MCV 101.5 fL (80.0-100.0)
[2017-09-16 16:14] LABS: Partial Thromboplastin Time 22.4 sec (22.0-30.0); Prothrombin Time 9.8 sec (9.0-12.0)
[2017-09-16 16:15] LABS: ALT 18 U/L (21-72); AST 21 U/L (17-59); Albumin 3.7 g/dL (3.5-5.0); Alkaline Phosphatase 88 U/L (38-126); Anion Gap 13 mmol/L; Blood Urea Nitrogen 23 mg/dL (9-20); Calcium 9.4 mg/dL (8.4-10.2); Carbon Dioxide 25 mmol/L (22-30); Chloride 100 mmol/L (98-107); Glucose 187 mg/dL (74-99); Magnesium 1.8 mg/dL (1.6-2.3); Potassium 5.6 mmol/L (3.5-5.1); Sodium 138 mmol/L (137-145); Total Bilirubin 0.3 mg/dL (0.2-1.3); Total Protein 6.5 g/dL (6.3-8.2)
[2017-09-16 16:18] LABS: Creatine Kinase 31 U/L (55-170)
[2017-09-16 16:31] LABS: Creatine Kinase MB 1.3 ng/mL (0.0-2.4); Troponin I <0.012 ng/mL (0.000-0.034)
--- NOTE | 2017-09-16 16:33 | ED ---
General Adult HPI - General Chief complaint: GI Bleed Stated complaint: Rectal Bleeding Time Seen by Provider: 09/16/17 15:44 Source: patient, EMS, RN notes reviewed, old records reviewed Mode of arrival: EMS Limitations: no limitations - History of Present Illness Initial comments: 82-year-old male with history of alcoholism presents for evaluation of hematuria and rectal bleeding. Patient has been passing clots and complaining of dysuria for the past several days. He also reports some blood in his stool. Denies melena. Patient was encouraged to present to the emergency department by his home care nurse. Patient has no additional complaints. No chest pain or shortness of breath. No cough no fever. No abdominal pain. Patient does not wish to be in the emergency department but is agreeable with evaluation. - Related Data Home Medications Medication Instructions Recorded Confirmed Spironolactone 50 mg PO DAILY 07/29/17 09/16/[address] [place] [Atrovent Hfa] 2 puff INHALATION RT-QID 09/16/17 09/16/17 Levothyroxine Sodium [Synthroid] 100 mcg PO DAILY 09/16/17 09/16/[address] [place] [Incruse 1 puff INHALATION RT-DAILY 09/16/17 09/16/17 Ellipta] glipiZIDE [Glucotrol XL] 2.5 mg PO DAILY 09/16/17 09/16/17 metFORMIN HCL [Glucophage] 1,000 mg PO DAILY 09/16/17 09/16/17 Previous Rx's Medication Instructions Recorded Budesonide-Formot 160-4.5 Mcg 2 puff INHALATION RT-BID #1 inhaler 10/27/16 [Symbicort 160-4.5 Mcg Inhaler] Albuterol Inhaler [Ventolin Hfa 1 - 2 puff INHALATION RT-QID #0 01/13/17 Inhaler] Digoxin [Lanoxin] 125 mcg PO DAILY #30 tab 01/13/17 Metoprolol Tartrate [Lopressor] 25 mg PO TID #90 tab 01/13/17 Furosemide [Lasix] 20 mg PO DAILY tab 08/20/17 Ipratropium-Albuterol Nebulize 3 ml INHALATION RT-Q4H PRN 08/20/17 [Duoneb 0.5 mg-3 mg/3 ml Soln] ampul.neb Allergies Allergy/AdvReac Type Severity Reaction Status Date / Time aspirin Allergy Rash/Hives Verified 09/16/17 16:36 Review of Systems ROS Statement: Those systems with pertinent positive or pertinent negative responses have been documented in the HPI. ROS Other: All systems not noted in ROS Statement are negative. Past Medical History Past Medical History: Atrial Fibrillation, Cancer, COPD, Diabetes Mellitus, GERD /Reflux, Hypertension, Liver Disease, Osteoarthritis (OA), Pneumonia, Prostate Disorder, Thyroid Disorder Additional Past Medical History / Comment(s): Pt recently admitted 07/29/17 with multilobar pneumonia. Other HX: COPD, chronic atrial fibrillation, Thyroid cancer with thyroidectomy, hypothyroidism, skin cancers with removals, prostrate cancer with radiation, lower GI bleed thought secondary to radiation proctitis, diverticular disease, chronic anemia, duodenal ulcer, ETOH, history of ETOH withdrawal/delirium tremors, NIDDM type II, R leg weakness, history of falls, chronic lower extremity edema, arthritis thoracic spine. History of Any Multi-Drug Resistant Organisms: None Reported Past Surgical History: Bowel Resection Additional Past Surgical History / Comment(s): thyroidectomy, colonoscopy/ polypectomy, skin cancer removed, bilateral cataracts, bowel resection-d/t diverticulits Past Anesthesia/Blood Transfusion Reactions: No Reported Reaction Past Psychological History: No Psychological Hx Reported Smoking Status: Current every day smoker Past Alcohol Use History: Abuse Past Drug Use History: None Reported - Past Family History Father Family Medical History: Asthma, CVA/TIA Additional Family Medical History / Comment(s): pacemaker, smoker Mother Family Medical History: Chest Pain / Angina Additional Family Medical History / Comment(s): smoker General Exam Limitations: no limitations General appearance: alert, in no apparent distress Head exam: Absent: atraumatic, normocephalic Eye exam: Present: normal appearance, PERRL, EOMI Neck exam: Present: normal inspection. Absent: tenderness, meningismus Respiratory exam: Present: normal lung sounds bilaterally. Absent: respiratory distress Cardiovascular Exam: Present: regular rate, normal rhythm GI/Abdominal exam: Present: soft, distended (Suprapubic). Absent: tenderness, guarding Rectal exam: Absent: black stool, bloody stool exam: Present: other (Bleeding from meatus with clots) Extremities exam: Present: normal inspection, normal capillary refill. Absent: pedal edema Neurological exam: Present: alert, oriented X3, CN II-XII intact, reflexes normal. Absent: motor sensory deficit Psychiatric exam: Present: agitated, flat affect Skin exam: Present: warm, dry, intact. Absent: cyanosis, diaphoretic Course Vital Signs 09/16/17 09/16/17 15:33 16:54 Temperature 97 F L Pulse Rate 89 101 H Respiratory 16 16 Rate Blood Pressure 112/72 112/69 O2 Sat by Pulse 100 99 Oximetry EKG Findings - EKG Comments: EKG Findings:: Atrial fibrillation with PVC, ventricular rate 88, QRS duration 82, QTC 460, no signs of acute ischemia Medical Decision Making - Medical Decision Making 82-year-old male presenting with hematuria and rectal bleeding. Patient has had bleeding for the past several days. He does have recent hospital admission with rectal ulcer status post intervention with gastroenterology. Straight cath is performed emergency department, 300 mL of bloody urine is obtained, this is unable to be tested on urinalysis,. Patient's hemoglobin 8.3 from 8.8. Hearn catheter will be inserted. Patient's potassium is 5.6, will receive IV hydration and his laboratory study will be repeated in the morning. Patient admitted for hyperkalemia, rectal bleeding, and hematuria - Lab Data Result diagrams: 09/16/17 15:44 09/16/17 15:44 Lab Results 09/16/17 09/16/17 09/16/17 Range/Units 15:44 15:44 15:44 WBC 5.4 (3.8-10.6) k/uL RBC 2.55 L (4.30-5.90) m/uL Hgb 8.3 L (13.0-17.5) gm/dL Hct 25.9 L (39.0-53.0) % MCV 101.5 H D (80.0-100.0) fL MCH 32.5 (25.0-35.0) pg MCHC 32.0 (31.0-37.0) g/dL RDW 16.4 H (11.5-15.5) % Plt Count 415 (150-450) k/uL Neutrophils % 77 % Lymphocytes % 14 % Monocytes % 5 % Eosinophils % 1 % Basophils % 1 % Neutrophils # 4.2 (1.3-7.7) k/uL Lymphocytes # 0.8 L (1.0-4.8) k/uL Monocytes # 0.3 (0-1.0) k/uL Eosinophils # 0.1 (0-0.7) k/uL Basophils # 0.0 (0-0.2) k/uL Anisocytosis Slight Macrocytosis Slight PT (9.0-12.0) sec INR (<1.2) APTT (22.0-30.0) sec Sodium 138 (137-145) mmol/L Potassium 5.6 H (3.5-5.1) mmol/L Chloride 100 (98-107) mmol/L Carbon Dioxide 25 (22-30) mmol/L Anion Gap 13 mmol/L BUN 23 H (9-20) mg/dL Creatinine 0.80 (0.66-1.25) mg/dL Est GFR (MDRD) Af Amer >60 (>60 ml/min/1.73 sqM) Est GFR (MDRD) Non-Af >60 (>60 ml/min/1.73 sqM) Glucose 187 H (74-99) mg/dL Calcium 9.4 (8.4-10.2) mg/dL Magnesium 1.8 (1.6-2.3) mg/dL Total Bilirubin 0.3 (0.2-1.3) mg/dL AST 21 (17-59) U/L ALT 18 L (21-72) U/L Alkaline Phosphatase 88 (38-126) U/L Total Creatine Kinase 31 L (55-170) U/L CK-MB (CK-2) 1.3 (0.0-2.4) ng/mL CK-MB (CK-2) Rel Index 4.2 Troponin I <0.012 (0.000-0.034) ng/mL Total Protein 6.5 (6.3-8.2) g/dL Albumin 3.7 (3.5-5.0) g/dL Urine Color Urine Appearance (Clear) Urine RBC (0-5) /hpf Urine WBC (0-5) /hpf Urine WBC Clumps (None) /hpf Blood Type Blood Type Recheck Antibody Screen Spec Expiration Date 09/16/17 09/16/17 09/16/17 Range/Units 15:44 15:44 16:41 WBC (3.8-10.6) k/uL RBC (4.30-5.90) m/uL Hgb (13.0-17.5) gm/dL Hct (39.0-53.0) % MCV (80.0-100.0) fL MCH (25.0-35.0) pg MCHC (31.0-37.0) g/dL RDW (11.5-15.5) % Plt Count (150-450) k/uL Neutrophils % % Lymphocytes % % Monocytes % % Eosinophils % % Basophils % % Neutrophils # (1.3-7.7) k/uL Lymphocytes # (1.0-4.8) k/uL Monocytes # (0-1.0) k/uL Eosinophils # (0-0.7) k/uL Basophils # (0-0.2) k/uL Anisocytosis Macrocytosis PT 9.8 (9.0-12.0) sec INR 1.0 (<1.2) APTT 22.4 (22.0-30.0) sec Sodium (137-145) mmol/L Potassium (3.5-5.1) mmol/L Chloride (98-107) mmol/L Carbon Dioxide (22-30) mmol/L Anion Gap mmol/L BUN (9-20) mg/dL Creatinine (0.66-1.25) mg/dL Est GFR (MDRD) Af Amer (>60 ml/min/1.73 sqM) Est GFR (MDRD) Non-Af (>60 ml/min/1.73 sqM) Glucose (74-99) mg/dL Calcium (8.4-10.2) mg/dL Magnesium (1.6-2.3) mg/dL Total Bilirubin (0.2-1.3) mg/dL AST (17-59) U/L ALT (21-72) U/L Alkaline Phosphatase (38-126) U/L Total Creatine Kinase (55-170) U/L CK-MB (CK-2) (0.0-2.4) ng/mL CK-MB (CK-2) Rel Index Troponin I (0.000-0.034) ng/mL Total Protein (6.3-8.2) g/dL Albumin (3.5-5.0) g/dL Urine Color Dark Red Urine Appearance Cloudy (Clear) Urine RBC >182 H (0-5) /hpf Urine WBC >182 H (0-5) /hpf Urine WBC Clumps Many H (None) /hpf Blood Type A Positive Blood Type Recheck No Antibody Screen NEGATIVE Spec Expiration Date 09/19/2017 - 234 Disposition Clinical Impression: Rectal bleeding, Hyperkalemia, Hematuria Disposition: ADMITTED IP TO THIS [facility] Condition: Stable Referrals: Jesse Gee MD [Primary Care Provider] - 1-2 days Decision to Admit Reason: Admit from EC Decision Date: 09/16/17 Decision Time: 18:06
[2017-09-16 17:26] LABS: RBC,Urine >182 /hpf (0-5); WBC,Urine >182 /hpf (0-5)
[2017-09-16 17:27] LABS: Appearance,Urine Cloudy (Clear)
[2017-09-16 17:28] LABS: Color,Urine Dark Red
[2017-09-16] MEDS ORDERED: NALOXONE 0.4 MG/ML 1 ML VIAL IV PRN (17:58)
[2017-09-16] MEDS ORDERED: THIAMINE 100 MG/ML 2 ML VIAL IM STA (18:00)
[2017-09-16] MEDS ORDERED: LORazepam 2 MG/ML INJ IV PRN ×3 (18:00)
[2017-09-16] MEDS: SODIUM CHLORIDE 0.9% 1,000 ML IV SCH (18:13)
[2017-09-16 21:01] LABS: Glucose,Whole Blood 237 mg/dL (75-99)
[2017-09-16] MEDS: METOPROLOL TARTRATE 25 MG TAB PO SCH (22:57)
[2017-09-17 04:27] VITALS: BMI 22.1
[2017-09-17 06:07] LABS: Glucose,Whole Blood 107 mg/dL (75-99)
[2017-09-17 06:30] LABS: Anisocytosis Slight; Basophils % (A) 1 %; Eosinophils # (A) 0.1 k/uL (0-0.7); Eosinophils % (A) 2 %; HCT 24.5 % (39.0-53.0); HGB 7.5 gm/dL (13.0-17.5); Lymphocytes # (A) 0.7 k/uL (1.0-4.8); Lymphocytes % (A) 17 %; MCH 31.6 pg (25.0-35.0); MCHC 30.7 g/dL (31.0-37.0); MCV 103.2 fL (80.0-100.0); Macrocytosis Moderate; Mean Platelet Volume 7.9; Monocytes # (A) 0.2 k/uL (0-1.0); Monocytes % (A) 5 %; Neutrophils # (A) 3.1 k/uL (1.3-7.7); Neutrophils % (A) 73 %; Platelet Count 339 k/uL (150-450); RBC 2.37 m/uL (4.30-5.90); RDW 16.7 % (11.5-15.5); WBC 4.2 k/uL (3.8-10.6)
[2017-09-17 06:46] LABS: ALT 23 U/L (21-72); AST 18 U/L (17-59); Albumin 3.2 g/dL (3.5-5.0); Alkaline Phosphatase 77 U/L (38-126); Anion Gap 10 mmol/L; Blood Urea Nitrogen 24 mg/dL (9-20); Calcium 9.3 mg/dL (8.4-10.2); Carbon Dioxide 27 mmol/L (22-30); Chloride 102 mmol/L (98-107); Glucose 106 mg/dL (74-99); Magnesium 1.8 mg/dL (1.6-2.3); Sodium 139 mmol/L (137-145); Total Bilirubin 0.5 mg/dL (0.2-1.3); Total Protein 5.9 g/dL (6.3-8.2)
[2017-09-17] MEDS: SODIUM CHLORIDE 0.9% 1,000 ML IV SCH ×2 (07:46→20:35)
[2017-09-17] MEDS: IPRATROPIUM-ALBUTEROL 3 ML NEB INHALATION PRN ×3 (08:07→16:23)
[2017-09-17] MEDS: FUROSEMIDE 20 MG TAB PO SCH (11:52)
[2017-09-17] MEDS: DIGOXIN 125 MCG TAB PO SCH (11:52)
[2017-09-17] MEDS: METOPROLOL TARTRATE 25 MG TAB PO SCH ×3 (11:53→20:32)
[2017-09-17] MEDS: THIAMINE 100 MG TAB PO SCH ×2 (11:53→18:41)
[2017-09-17] MEDS: LEVOTHYROXINE 100 MCG TAB PO SCH (14:22)
[2017-09-17] MEDS: SPIRONOLACTONE 25 MG TAB PO SCH (14:22)
--- NOTE | 2017-09-17 17:47 | P.HPIM ---
History of Present Illness H&P Date: 09/17/17 Chief Complaint: Bleeding per rectum and penis History of present complaint: This is a pleasant [address] Gee. Chronic stable medical conditions include diabetes, GERD, hypertension, hypothyroid, diverticulosis. Patient also has underlying chronic COPD, osteoarthritis, atrial fibrillation not a candidate for anticoagulation. Patient has known radiation proctitis with recurrent rectal bleeding. Has had argon plasma coagulation by Dr. Shannon Soliz. Patient was here earlier in the month and had sigmoidoscopy done, bleeding vessel was found that was clipped and yet again argon plasma coagulation was done. Patient indicates presented with bleeding per rectum. This amount is variable. Also this time patient is noticed bleeding to the penis. Also noticed some blood clots to the penis. This has not occurred before. Patient did follow the past with the urologist Dr. Guzman. Does feel tired and rundown. Patient today actually had a regular bowel movement, with some blood in it. Patient was initially kept nothing by mouth, and then later okayed by GI/Dr. Hayden to resume feeding. GEN.: Tired EYES: None HEENT: None NECK: None RESPIRATORY: Short of breath CARDIOVASCULAR: None GASTROINTESTINAL: As above GENITOURINARY: As above MUSCULOSKELETAL: None LYMPHATICS: None HEMATOLOGICAL: None PSYCHIATRY: None NEUROLOGICAL: None Past medical history: Recurrent lower GI bleed from radiation proctitis, essential hypertension, diabetes mellitus type 2, gait dysfunction, persistent atrial fibrillation not a candidate for decannulation, chronic thoracic spine osteoarthritis, hypothyroidism, GERD, COPD in a smoker, moderate to severe mitral regurgitation , severe secondary pulmonary hypertension, severe tricuspid regurgitation. Thyroid cancer with thyroidectomy, duodenal ulcer. Past surgical history: Bowel resection, thyroidectomy, skin cancer removed, bilateral cataract surgery , bowel resection for diverticulitis. Home medications: Reviewed in the electronic records from this admission ALLERGY to aspirin Social history: Patient be smoking a pack a day close to 50 years. Up to recently was drinking a quart or a pint of vodka daily. Has people who come at home to help him as arranged by his daughter. Family history: Asthma stroke VITAL SIGNS: 97, 89, 16, 112/72, 100% room air, upon presentation GENERAL: Average built, sitting up, comfortable. EYES: Pupils equal. Conjunctiva normal. HEENT: External appearance of nose and ears normal, oral cavity grossly normal. NECK: JVD not raised; masses not palpable. HEART: First and second heart sounds are normal; no edema. LUNGS: Respiratory rate normal; decreased breath sounds, mild wheezing. ABDOMEN: Soft, nontender, liver spleen not palpable, no masses palpable. LYMPHATICS: No lymph nodes palpable in the axilla and neck. PSYCH: Alert and oriented x3; mood and affect normal. NEUROLOGICAL: Cranial nerves grossly intact; no facial asymmetry, power and sensation grossly intact. Investigations: Potassium 5.6, hemoglobin 8.3, repeat 7.5, platelets 415 Repeat potassium 5, BUN 23, creatinine 0.8 UA multiple WBC and RBC Assessment: - Recurrent lower GI bleed from radiation proctitis, which has been present on and off for last 2 years causing rectal bleeding with argon plasma coag ablation being done. 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 Acute infection needs to be treated-to see if it clears up the bleeding -essential hypertension, -diabetes mellitus type 2, on oral hypoglycemic -Chronic gait dysfunction, -persistent atrial fibrillation not a candidate for anticoagulation, -chronic thoracic spine osteoarthritis, -hypothyroidism secondary to thyroidectomy for cancer, -GERD, -COPD in a smoker, -moderate to severe mitral regurgitation, non-rheumatic - severe secondary pulmonary hypertension, secondary to COPD -severe tricuspid regurgitation. Non-rheumatic -Acute blood loss anemia from his recurrent GI bleed and also hematuria Plan: Patient's H&H will be followed closely. Consultation to both GI and urology is made. Care was discussed with the patient and his caregiver at the bedside. Questions were answered. Home medications be resumed. Patient was initially nothing by mouth but per GI/ Dr. Hayden patient now allowed to eat.. Past Medical History Past Medical History: Atrial Fibrillation, Cancer, COPD, Diabetes Mellitus, GERD /Reflux, Hypertension, Liver Disease, Osteoarthritis (OA), Pneumonia, Prostate Disorder, Thyroid Disorder Additional Past Medical History / Comment(s): Pt recently admitted 07/29/17 with multilobar pneumonia. Other HX: COPD, chronic atrial fibrillation, Thyroid cancer with thyroidectomy, hypothyroidism, skin cancers with removals, prostrate cancer with radiation, lower GI bleed thought secondary to radiation proctitis, diverticular disease, chronic anemia, duodenal ulcer, ETOH, history of ETOH withdrawal/delirium tremors, NIDDM type II, R leg weakness, history of falls, chronic lower extremity edema, arthritis thoracic spine. History of Any Multi-Drug Resistant Organisms: None Reported Past Surgical History: Bowel Resection Additional Past Surgical History / Comment(s): thyroidectomy, colonoscopy/ polypectomy, skin cancer removed, bilateral cataracts, bowel resection-d/t diverticulits Past Anesthesia/Blood Transfusion Reactions: No Reported Reaction Past Psychological History: No Psychological Hx Reported Additional Psychological History / Comment(s): pt lives in a house, alone. 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 He states his arminda/physician would like him to have home care but he isn't sure he agrees. Smoking Status: Current every day smoker Past Alcohol Use History: Abuse Additional Past Alcohol Use History / Comment(s): started smoking in his mid 40' s, 1ppd, 1/2 pint vodka daily. Past Drug Use History: None Reported - Past Family History Father Family Medical History: Asthma, CVA/TIA Additional Family Medical History / Comment(s): pacemaker, smoker Mother Family Medical History: Chest Pain / Angina Additional Family Medical History / Comment(s): smoker Medications and Allergies Home Medications Medication Instructions Recorded Confirmed Type Budesonide-Formot 160-4.5 Mcg 2 puff INHALATION RT-BID #1 inhaler 10/27/1609/16 Rx [Symbicort 160-4.5 Mcg Inhaler] Albuterol Inhaler [Ventolin Hfa 1 - 2 puff INHALATION RT-QID #0 01/13/17 Rx Inhaler] Digoxin [Lanoxin] 125 mcg PO DAILY #30 tab 01/13/17 09/16/17 Rx Metoprolol Tartrate [Lopressor] 25 mg PO TID #90 tab 01/13/17 09/16/17 Rx Spironolactone 50 mg PO DAILY 07/29/17 09/16/17 History Furosemide [Lasix] 20 mg PO DAILY tab 08/20/17 09/16/17 Rx Ipratropium-Albuterol Nebulize 3 ml INHALATION RT-Q4H PRN 08/20/17 09/16/17 Rx [Duoneb 0.5 mg-3 mg/3 ml Soln] ampul.neb Ipratropium [place] [Atrovent Hfa] 2 puff INHALATION RT-QID 09/16/17 09/16/17 History Levothyroxine Sodium [Synthroid] 100 mcg PO DAILY 09/16/17 09/16/17 History Umeclidinium [place] [Incruse 1 puff INHALATION RT-DAILY 09/16/17 09/16/17 History Ellipta] glipiZIDE [Glucotrol XL] 2.5 mg PO DAILY 09/16/17 09/16/17 History metFORMIN HCL [Glucophage] 1,000 mg PO DAILY 09/16/17 09/16/17 History Allergies Allergy/AdvReac Type Severity Reaction Status Date / Time aspirin Allergy Rash/Hives Verified 09/16/17 16:36 Results CBC & Chem 7: 09/17/17 05:59 09/17/17 05:59 Labs: Abnormal Lab Results - Last 24 Hours (Table)
[2017-09-17] MEDS: SYMBICORT 160-4.5 MCG INHALER INHALATION SCH (20:30)
[2017-09-18] MEDS: LEVOTHYROXINE 100 MCG TAB PO SCH (05:41)
[2017-09-18] MEDS: FUROSEMIDE 20 MG TAB PO SCH (08:25)
[2017-09-18] MEDS: DIGOXIN 125 MCG TAB PO SCH (08:26)
[2017-09-18] MEDS: METOPROLOL TARTRATE 25 MG TAB PO SCH ×3 (08:26→20:49)
[2017-09-18] MEDS: SPIRONOLACTONE 25 MG TAB PO SCH (08:28)
[2017-09-18] MEDS: SYMBICORT 160-4.5 MCG INHALER INHALATION SCH ×2 (08:40→20:15)
--- NOTE | 2017-09-18 10:36 | P.GSCN ---
History of Present Illness Consult date: 09/18/17 History of present illness: The patient is an 82-year-old gentleman who was brought into the hospital because of both GI and bleeding. The patient has been having problems with recurrent radiation proctitis due to radiation therapy for prostate cancer in 2014. He has been treated by Dr. Soliz with scopes, fulguration and laser treatments. The patient recently has had gross hematuria with clots. He also has the radiation proctitis. He is found to be anemic. In because of urinary tract bleeding we are asked see the patient. The patient has been evaluated and treated in the past by . He has not seen him since his radiation therapy however. Apparently he follows with Dr. Gee and Dr. Marquez for his prostate cancer. As far as I can tell the cancer is in remission. He is not having any problems urinating this morning. He states the urine is starting to clear. He had a urine culture that was negative. He is not having any pain. Review of Systems - Constitutional Reports as per HPI - Gastrointestinal Reports as per HPI - Genitourinary Reports as per HPI Past Medical History Past Medical History: Atrial Fibrillation, Cancer, COPD, Diabetes Mellitus, GERD /Reflux, Hypertension, Liver Disease, Osteoarthritis (OA), Pneumonia, Prostate Disorder, Thyroid Disorder Additional Past Medical History / Comment(s): Pt recently admitted 07/29/17 with multilobar pneumonia. Other HX: COPD, chronic atrial fibrillation, Thyroid cancer with thyroidectomy, hypothyroidism, skin cancers with removals, prostrate cancer with radiation, lower GI bleed thought secondary to radiation proctitis, diverticular disease, chronic anemia, duodenal ulcer, ETOH, history of ETOH withdrawal/delirium tremors, NIDDM type II, R leg weakness, history of falls, chronic lower extremity edema, arthritis thoracic spine. History of Any Multi-Drug Resistant Organisms: None Reported Past Surgical History: Bowel Resection Additional Past Surgical History / Comment(s): thyroidectomy, colonoscopy/ polypectomy, skin cancer removed, bilateral cataracts, bowel resection-d/t diverticulits Past Anesthesia/Blood Transfusion Reactions: No Reported Reaction Past Psychological History: No Psychological Hx Reported Additional Psychological History / Comment(s): pt lives in a house, alone. 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 He states his arminda/physician would like him to have home care but he isn't sure he agrees. Smoking Status: Current every day smoker Past Alcohol Use History: Abuse Additional Past Alcohol Use History / Comment(s): started smoking in his mid 40' s, 1ppd, 1/2 pint vodka daily. Past Drug Use History: None Reported - Past Family History Father Family Medical History: Asthma, CVA/TIA Additional Family Medical History / Comment(s): pacemaker, smoker Mother Family Medical History: Chest Pain / Angina Additional Family Medical History / Comment(s): smoker Medications and Allergies Home Medications Medication Instructions Recorded Confirmed Type Budesonide-Formot 160-4.5 Mcg 2 puff INHALATION RT-BID #1 inhaler 10/27/1609/16 Rx [Symbicort 160-4.5 Mcg Inhaler] Albuterol Inhaler [Ventolin Hfa 1 - 2 puff INHALATION RT-QID #0 01/13/17 Rx Inhaler] Digoxin [Lanoxin] 125 mcg PO DAILY #30 tab 01/13/17 09/16/17 Rx Metoprolol Tartrate [Lopressor] 25 mg PO TID #90 tab 01/13/17 09/16/17 Rx Spironolactone 50 mg PO DAILY 07/29/17 09/16/17 History Furosemide [Lasix] 20 mg PO DAILY tab 08/20/17 09/16/17 Rx Ipratropium-Albuterol Nebulize 3 ml INHALATION RT-Q4H PRN 08/20/17 09/16/17 Rx [Duoneb 0.5 mg-3 mg/3 ml Soln] ampul.neb Ipratropium [place] [Atrovent Hfa] 2 puff INHALATION RT-QID 09/16/17 09/16/17 History Levothyroxine Sodium [Synthroid] 100 mcg PO DAILY 09/16/17 09/16/17 History Umeclidinium [place] [Incruse 1 puff INHALATION RT-DAILY 09/16/17 09/16/17 History Ellipta] glipiZIDE [Glucotrol XL] 2.5 mg PO DAILY 09/16/17 09/16/17 History metFORMIN HCL [Glucophage] 1,000 mg PO DAILY 09/16/17 09/16/17 History Allergies Allergy/AdvReac Type Severity Reaction Status Date / Time aspirin Allergy Rash/Hives Verified 09/16/17 16:36 Surgical - Exam Vital Signs Temp Pulse Resp BP Pulse Ox 97 F L 89 16 112/72 100 09/16/17 15:33 09/16/17 15:33 09/16/17 15:33 09/16/17 15:33 09/16/17 15:33 - General well developed, well nourished, no distress - Eyes PERRL, pale - ENT no hearing loss - Neck no masses, trachea midline - Respiratory normal expansion, normal respiratory effort - Cardiovascular Rhythm: regular - Abdomen Abdomen: soft, non tender - Genitourinary Penis is uncircumcised with some blood underneath the foreskin. The testes are descended and unremarkable scrotum was unremarkable. Rectal is deferred at this point time the patient requests. He has had multiple in the past with the radiation proctitis. 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 History of prostate cancer treated with radiation therapy. Persistent radiation proctitis. Anemia secondary to both radiation proctitis and radiation cystitis. Multiple medical problems. Recommendations: Since the urine is clearing urologic intervention is probably not necessary. We'll continue to monitor him. I'll notify of his admission.
[2017-09-18] MEDS: THIAMINE 100 MG TAB PO SCH ×2 (12:15→17:16)
[2017-09-18] MEDS: SODIUM CHLORIDE 0.9% 1,000 ML IV SCH (12:16)
[2017-09-18] MEDS: IPRATROPIUM-ALBUTEROL 3 ML NEB INHALATION PRN (16:38)
[2017-09-18 17:15] LABS: Glucose,Whole Blood 124 mg/dL (75-99)
--- NOTE | 2017-09-18 18:25 | P.PN ---
Progress Note - Text Progress Note Date: 09/18/17 Chief Complaint: Bleeding per rectum and penis History of present complaint: This is a pleasant [address] Gee. Chronic stable medical conditions include diabetes, GERD, hypertension, hypothyroid, diverticulosis. Patient also has underlying chronic COPD, osteoarthritis, atrial fibrillation not a candidate for anticoagulation. Patient has known radiation proctitis with recurrent rectal bleeding. Has had argon plasma coagulation by Dr. Shannon Soliz. Patient was here earlier in the month and had sigmoidoscopy done, bleeding vessel was found that was clipped and yet again argon plasma coagulation was done. Patient indicates presented with bleeding per rectum. This amount is variable. Also this time patient is noticed bleeding to the penis. Also noticed some blood clots to the penis. This has not occurred before. Patient did follow the past with the urologist Dr. Guzman. Today-had some more bleeding per rectum. Some more bleeding through his penis. Seen by Dr. Badillo from neurology. For a conservative approach. Patient does feel a bit tired. Review of systems: Was done for constitutional, cardiovascular, GI, pulmonary. Genitourinary relevant finding as above Current medications reviewed: IV fluids, Lasix and Aldactone Investigations: Hemoglobin 7.5 BUN 24, creatinine 0.8 VITAL SIGNS: 97.4, 85, 16, 114/66, 95% room air GENERAL: , sitting up, at the edge of the bed, comfortable. EYES: Pupils equal. Conjunctiva pale. HEENT: External appearance of nose and ears normal, oral cavity grossly normal. NECK: JVD not raised; masses not palpable. HEART: First and second heart sounds are normal; no edema. LUNGS: Respiratory rate normal; decreased breath sounds, mild wheezing. ABDOMEN: Soft, nontender, liver spleen not palpable, no masses palpable. PSYCH: Alert and oriented x3; mood and affect normal. 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 Acute infection needs to be treated-to see if it clears up the bleeding, slow to respond -essential hypertension, -diabetes mellitus type 2, on oral hypoglycemic -Chronic gait dysfunction, -persistent atrial fibrillation not a candidate for anticoagulation, -chronic thoracic spine osteoarthritis, -hypothyroidism secondary to thyroidectomy for cancer, -GERD, -COPD in a smoker, -moderate to severe mitral regurgitation, non-rheumatic - severe secondary pulmonary hypertension, secondary to COPD -severe tricuspid regurgitation. Non-rheumatic -Acute blood loss anemia from his recurrent GI bleed and also hematuria -Possible acute UTI Plan: As patient is still actively bleeding we'll keep a close eye on hemoglobin. Cutback on IV fluids. The patient on IV ceftriaxone. DC Lasix. Cutback and those of Aldactone to 25 mg.
[2017-09-18] MEDS: cefTRIAXone IN SWFI 1,000 MG/10 ML SYRINGE IVP SCH (19:01)
[2017-09-19 06:30] LABS: Anisocytosis Slight; HCT 22.6 % (39.0-53.0); Hypochromasia Slight; MCH 32.8 pg (25.0-35.0); MCHC 30.9 g/dL (31.0-37.0); MCV 106.2 fL (80.0-100.0); Macrocytosis Moderate; Mean Platelet Volume 7.2; Platelet Count 292 k/uL (150-450); RBC 2.13 m/uL (4.30-5.90); RDW 18.2 % (11.5-15.5); WBC 5.2 k/uL (3.8-10.6)
[2017-09-19] MEDS: LEVOTHYROXINE 100 MCG TAB PO SCH (07:16)
[2017-09-19] MEDS: SYMBICORT 160-4.5 MCG INHALER INHALATION SCH ×2 (07:43→19:51)
[2017-09-19] MEDS: SPIRONOLACTONE 25 MG TAB PO SCH (08:46)
[2017-09-19] MEDS: DIGOXIN 125 MCG TAB PO SCH (08:46)
[2017-09-19] MEDS: METOPROLOL TARTRATE 25 MG TAB PO SCH ×3 (08:46→19:53)
[2017-09-19] MEDS ORDERED: HALOPERIDOL LACTATE 5 MG/ML 1 ML VIAL IM PRN (09:35)
[2017-09-19] MEDS: IPRATROPIUM-ALBUTEROL 3 ML NEB INHALATION PRN ×2 (11:37→15:33)
[2017-09-19] MEDS: THIAMINE 100 MG TAB PO SCH ×2 (12:30→17:16)
--- NOTE | 2017-09-19 14:25 | PN ---
PROGRESS NOTE DATE OF SERVICE: September 19, 2017. REQUESTING PHYSICIAN: Dr. Redman HISTORY: The patient is an 82 -year-old pleasant white male who was admitted to the hospital with hematuria as well as rectal bleeding for the last 3 days duration. He was seen by Dr. Camacho in consultation yesterday. At the time of admission to the hospital hemoglobin was 8.6 and dropped to 7 g/dL. He is going to be receiving 1 unit of blood transfusion. The patient has history of severe radiation proctitis and in fact, he underwent an upper endoscopy by me on August 28, 2017 and was noted to have mild to moderate radiation proctitis and a solitary large ulcer in the distal rectum, probably related to constipation with a visible vessel that was cauterized and clipped. The patient did well after being discharged from the hospital, but he has been having intermittent rectal bleeding on and off since then. He reports he had 2 bowel movements this morning with a scant amount of blood. PHYSICAL EXAMINATION: Appears comfortable. No apparent distress. VITAL SIGNS: Stable. Blood pressure is 130/86, pulse rate 63, temperature is 96. HEENT examination unremarkable. Conjunctivae pink. Sclerae anicteric. Oral cavity no lesions. Neck no jugular venous distention or lymph node enlargement. Chest was clear to auscultation. HEART: Regular rate and rhythm. ABDOMEN: Soft. Bowel sounds are positive. No organomegaly. Extremities: No pedal edema. Skin no rashes. Neuro: He is alert and oriented x3. No focal deficits. LABS: Done yesterday hemoglobin 7.5, today is 7. Platelets are within normal limits. IMPRESSION: 1. Hematuria. 2. Radiation proctitis status post flexible sigmoidoscopy with argon plasma coagulation and resolution clip placement on August 25, 2017. 3. The patient now continues to have intermittent rectal bleeding, worse in the last 2 or 3 days, dropped hemoglobin to 7 and presently being transfused with a unit of blood. RECOMMENDATIONS: 1. Agree with blood transfusion. 2. We will start him on mesalamine enema to see if this causes any improvement in the radiation proctitis. 3. We will hold off on repeat flexible sigmoidoscopy at the present time since this was done only 3 weeks ago. 4. Continue to follow the patient closely during his hospital stay. Thank you for this consultation. AUGIEL / SKYEN: [id number] /
--- NOTE | 2017-09-19 15:14 | P.CONS ---
History of Present Illness - Reason for Consult Consult date: 09/18/17 Rectal bleeding - History of Present Illness The patient is an 82-year-old gentleman who was brought into the hospital because of both GI and bleeding. The patient has been having problems with recurrent radiation proctitis due to radiation therapy for prostate cancer in 2014. He has been treated by Dr. Soliz with scopes, fulguration and laser treatments. Last evaluation 08/25/2017. The patient recently has had gross hematuria with clots. He also has the radiation proctitis. He is found to be anemic. In because of urinary tract bleeding we are asked see the patient. The patient has been evaluated and treated in the past by . He has not seen him since his radiation therapy however. Apparently he follows with Dr. Gee and Dr. Marquez for his prostate cancer. As far as I can tell the cancer is in remission. He is not having any problems urinating this morning. He states the urine is starting to clear. He had a urine culture that was negative. He is not having any pain. Review of Systems Constitutional: Denies fever, chills, sweats, weight gain, or loss. HEENT: Negative for migraines, blurred vision or loss, earaches, drainage, tinnitus, oral mucosal lesions, dysphagia, or odynophagia. CARDIAC: Negative for chest pain, arrhythmias, or palpitation. RESPIRATORY: Negative for cough, SOB or wheezing. GI: See HPI for pertinent findings. : Negative for hematuria, urgency, frequency, polyuria, or dysuria. MUSCULOSKELETAL: Negative for muscle aches, swelling, arthritis, and arthralgias. NEUROLOGIC: Negative for stroke or TIA. ENDOCRINE: Negative for thyroid problems or diabetes. SKIN: Negative for rash or itching. PSYCHIATRIC: Negative history for depression and anxiety. Past Medical History Past Medical History: Atrial Fibrillation, Cancer, COPD, Diabetes Mellitus, GERD /Reflux, Hypertension, Liver Disease, Osteoarthritis (OA), Pneumonia, Prostate Disorder, Thyroid Disorder Additional Past Medical History / Comment(s): Pt recently admitted 07/29/17 with multilobar pneumonia. Other HX: COPD, chronic atrial fibrillation, Thyroid cancer with thyroidectomy, hypothyroidism, skin cancers with removals, prostrate cancer with radiation, lower GI bleed thought secondary to radiation proctitis, diverticular disease, chronic anemia, duodenal ulcer, ETOH, history of ETOH withdrawal/delirium tremors, NIDDM type II, R leg weakness, history of falls, chronic lower extremity edema, arthritis thoracic spine. History of Any Multi-Drug Resistant Organisms: None Reported Past Surgical History: Bowel Resection Additional Past Surgical History / Comment(s): thyroidectomy, colonoscopy/ polypectomy, skin cancer removed, bilateral cataracts, bowel resection-d/t diverticulits Past Anesthesia/Blood Transfusion Reactions: No Reported Reaction Past Psychological History: No Psychological Hx Reported Additional Psychological History / Comment(s): pt lives in a house, alone. 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 He states his arminda/physician would like him to have home care but he isn't sure he agrees. Smoking Status: Current every day smoker Past Alcohol Use History: Abuse Additional Past Alcohol Use History / Comment(s): started smoking in his mid 40' s, 1ppd, 1/2 pint vodka daily. Past Drug Use History: None Reported - Past Family History Father Family Medical History: Asthma, CVA/TIA Additional Family Medical History / Comment(s): pacemaker, smoker Mother Family Medical History: Chest Pain / Angina Additional Family Medical History / Comment(s): smoker Medications and Allergies Home Medications Medication Instructions Recorded Confirmed Type Budesonide-Formot 160-4.5 Mcg 2 puff INHALATION RT-BID #1 inhaler 10/27/1609/16 Rx [Symbicort 160-4.5 Mcg Inhaler] Albuterol Inhaler [Ventolin Hfa 1 - 2 puff INHALATION RT-QID #0 01/13/17 Rx Inhaler] Digoxin [Lanoxin] 125 mcg PO DAILY #30 tab 01/13/17 09/16/17 Rx Metoprolol Tartrate [Lopressor] 25 mg PO TID #90 tab 01/13/17 09/16/17 Rx Spironolactone 50 mg PO DAILY 07/29/17 09/16/17 History Furosemide [Lasix] 20 mg PO DAILY tab 08/20/17 09/16/17 Rx Ipratropium-Albuterol Nebulize 3 ml INHALATION RT-Q4H PRN 08/20/17 09/16/17 Rx [Duoneb 0.5 mg-3 mg/3 ml Soln] ampul.neb Ipratropium [place] [Atrovent Hfa] 2 puff INHALATION RT-QID 09/16/17 09/16/17 History Levothyroxine Sodium [Synthroid] 100 mcg PO DAILY 09/16/17 09/16/17 History Umeclidinium [place] [Incruse 1 puff INHALATION RT-DAILY 09/16/17 09/16/17 History Ellipta] glipiZIDE [Glucotrol XL] 2.5 mg PO DAILY 09/16/17 09/16/17 History metFORMIN HCL [Glucophage] 1,000 mg PO DAILY 09/16/17 09/16/17 History Allergies Allergy/AdvReac Type Severity Reaction Status Date / Time aspirin Allergy Rash/Hives Verified 09/16/17 16:36 Physical Exam Vitals: Vital Signs Temp Pulse Pulse Resp BP Pulse Ox 09/18/17 16:50 82 09/18/17 16:38 82 09/18/17 16:00 97.4 F L 85 16 114/66 95 09/18/17 12:00 97.6 F 82 18 120/68 94 L 09/18/17 08:00 97.2 F L 85 18 114/66 96 09/18/17 04:00 96.8 F L 81 20 123/81 100 09/18/17 00:00 97.3 F L 83 18 93/54 100 Intake and Output 09/18/17 09/18/17 09/19/17 14:59 22:59 06:59 Intake Total 240 Output Total 100 1 Balance 140 -1 Intake: Oral 240 Output: Urine 100 Stool 1 Other: # Voids 1 # Bowel Movements 1 General appearance: The patient is alert, oriented, with no acute distress. HET: Head is normocephalic and atraumatic. Pupils are equal and reactive. Oropharynx is clear without lesions. Neck: Supple without lymphadenopathy. Trachea midline. Heart: S1 S2. Regular rate and rhythm. Lungs: Clear to auscultation, with no dullness to percussion. Abdomen: Soft, nontender, nondistended with bowel sounds. No peritoneal signs. No palpable organomegaly or masses. Extremities: Normal skin color and turgor. No cyanosis, rash, ulceration, clubbing, or edema. Radial and pedal pulses are 2/4 bilaterally. Neurological: No focal deficits. Strength and sensation are grossly intact. Results CBC & Chem 7: 09/19/17 05:22 09/17/17 05:59 Labs: Abnormal Lab Results - Last 24 Hours (Table) 09/18/17 Range/Units 17:13 POC Glucose (mg/dL) 124 H (75-99) mg/dL Microbiology - Last 24 Hours (Table) 09/16/17 16:41 Urine Culture - Final Urine,Catheterized Assessment and Plan Assessment: Rectal bleeding and hematuria could be related to radiation proctitis and cystitis. Plan: Agree with your current management. Will monitor closely and consider repeat sigmoidoscopy based on his course.
--- NOTE | 2017-09-19 16:54 | P.PN ---
Progress Note - Text Progress Note Date: 09/19/17 Chief Complaint: Bleeding per rectum and penis History of present complaint: This is a pleasant [address] Gee. Chronic stable medical conditions include diabetes, GERD, hypertension, hypothyroid, diverticulosis. Patient also has underlying chronic COPD, osteoarthritis, atrial fibrillation not a candidate for anticoagulation. Patient has known radiation proctitis with recurrent rectal bleeding. Has had argon plasma coagulation by Dr. Shannon Soliz. Patient was here earlier in the month and had sigmoidoscopy done, bleeding vessel was found that was clipped and yet again argon plasma coagulation was done. Patient indicates presented with bleeding per rectum. This amount is variable. Also this time patient is noticed bleeding to the penis. Also noticed some blood clots to the penis. This has not occurred before. Patient did follow the past with the urologist Dr. Guzman. Today-patient can use to some bleeding work through the penis and the rectum. Earlier hemoglobin had dropped down to 7. I ordered a unit of blood. Patient also was delirious and agitated and this morning. Subsequently feeling better. Apologetic. Sitting up in a chair. Review of systems: Was done for constitutional, cardiovascular, GI, pulmonary. Genitourinary relevant finding as above Current medications reviewed: Aldactone, mesalamine enema Investigations: Hemoglobin 7, platelets 292 VITAL SIGNS: 96.8, 70, 20, 100/72, 96% GENERAL: , sitting up, in a chair, comfortable. EYES: Pupils equal. Conjunctiva pale. HEENT: External appearance of nose and ears normal, oral cavity grossly normal. NECK: JVD not raised; masses not palpable. HEART: First and second heart sounds are normal; no edema. LUNGS: Respiratory rate normal; decreased breath sounds, mild wheezing. ABDOMEN: Soft, nontender, liver spleen not palpable, no masses palpable. PSYCH: Alert and oriented x3; mood and affect normal. 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 Acute infection needs to be treated-to see if it clears up the bleeding, slow to respond -essential hypertension, -diabetes mellitus type 2, on oral hypoglycemic -Chronic gait dysfunction, -persistent atrial fibrillation not a candidate for anticoagulation, -chronic thoracic spine osteoarthritis, -hypothyroidism secondary to thyroidectomy for cancer, -GERD, -COPD in a smoker, -moderate to severe mitral regurgitation, non-rheumatic - severe secondary pulmonary hypertension, secondary to COPD -severe tricuspid regurgitation. Non-rheumatic -Acute blood loss anemia from his recurrent GI bleed and also hematuria-now hemoglobin dropping to 7 with blood pressure running on the lower side -Possible acute UTI Plan: Unit of blood has been ordered. Care was discussed with the patient. Also discussed with Dr. Donaldson from urology.. We'll repeat hemoglobin. Options are limited. Dr. Raza from GI started the patient on mesalamine enema
[2017-09-19] MEDS: cefTRIAXone IN SWFI 1,000 MG/10 ML SYRINGE IVP SCH (19:53)
[2017-09-20] MEDS: LEVOTHYROXINE 100 MCG TAB PO SCH (06:19)
[2017-09-20 06:48] LABS: Anisocytosis Moderate; HCT 25.7 % (39.0-53.0); HGB 8.2 gm/dL (13.0-17.5); Hypochromasia Slight; MCH 32.1 pg (25.0-35.0); Macrocytosis Moderate; Mean Platelet Volume 7.2; Platelet Count 316 k/uL (150-450); RBC 2.56 m/uL (4.30-5.90); RDW 21.6 % (11.5-15.5)
[2017-09-20 06:49] LABS: MCV 100.4 fL (80.0-100.0)
[2017-09-20] MEDS: IPRATROPIUM-ALBUTEROL 3 ML NEB INHALATION PRN ×2 (08:51→20:39)
[2017-09-20] MEDS: SYMBICORT 160-4.5 MCG INHALER INHALATION SCH ×2 (08:51→20:42)
[2017-09-20] MEDS: DIGOXIN 125 MCG TAB PO SCH (09:25)
[2017-09-20] MEDS: METOPROLOL TARTRATE 25 MG TAB PO SCH ×3 (09:25→20:33)
[2017-09-20] MEDS: SPIRONOLACTONE 25 MG TAB PO SCH (09:27)
--- NOTE | 2017-09-20 09:54 | P.PN ---
Subjective Progress Note Date: 09/20/17 Principal diagnosis: radiation proctitis rectal bleeding No rectal bleeding s/p 1 unit of blood yesterday. Denies abdominal pain. Requesting DC today. Hgb 8.2. Objective - Vital Signs Vital signs: Vital Signs Temp 97.3 F L 09/20/17 08:00 Pulse 72 09/20/17 09:06 Resp 18 09/20/17 08:00 BP 118/68 09/20/17 08:00 Pulse Ox 98 09/20/17 08:00 Intake & Output 09/19/17 09/20/17 09/20/17 18:59 06:59 18:59 Intake Total 360 920 Output Total 200 2 Balance 160 918 Weight 68.6 kg Intake: Oral 360 300 Blood Product 0 620 Rc As-3 Unit 0 310 [id number] Output: Urine 200 Stool 2 Other: Voiding Method Toilet Urinal Diaper Incontinent # Voids 1 - Exam General appearance: The patient is alert, oriented, in no acute distress. HET: Head is normocephalic and atraumatic. Pupils are equal and reactive. Oropharynx is clear without lesions. Neck: Supple without lymphadenopathy. Trachea midline. Heart: S1 S2. Regular rate and rhythm. Lungs: No crackles or wheezes are heard. Abdomen: Soft, nontender, nondistended with bowel sounds. No peritoneal signs. No palpable organomegaly or masses. Extremities: Normal skin color and turgor. No cyanosis, rash, ulceration, clubbing, or edema. Radial and pedal pulses are 2/4 bilaterally. Neurological: No focal deficits. Strength and sensation are grossly intact. - Labs CBC & Chem 7: 09/20/17 05:58 09/17/17 05:59 Labs: Abnormal Lab Results - Last 24 Hours (Table) 09/16/17 09/20/17 Range/Units 15:44 05:58 RBC 2.56 L (4.30-5.90) m/uL Hgb 8.2 L (13.0-17.5) gm/dL Hct 25.7 L (39.0-53.0) % MCV 100.4 H D (80.0-100.0) fL RDW 21.6 H (11.5-15.5) % Crossmatch See Detail Assessment and Plan (1) Radiation proctitis Current Visit: Yes Status: Acute Code(s): K62.7 - RADIATION PROCTITIS SNOMED Code(s): 081524805 (2) Hematuria Current Visit: Yes Status: Acute Code(s): R31.9 - HEMATURIA, UNSPECIFIED SNOMED Code(s): 79492430 (3) Rectal bleeding Current Visit: Yes Status: Acute Code(s): K62.5 - HEMORRHAGE OF ANUS AND RECTUM SNOMED Code(s): 55626560 (4) Acute blood loss anemia Current Visit: No Status: Acute Code(s): D62 - ACUTE POSTHEMORRHAGIC ANEMIA SNOMED Code(s): 390579813 Plan: 1. No active rectal bleeding hemoglobin stable at 8.2. Discharge per medicine. Return to office for reevaluation. Recommend mesalamine enemas [facility] will provide prescription. 2. Follow-up with PCP 3-5 days with outpatient CBC. Assessment and plan of care discussed with Dr. Soliz
[2017-09-20] MEDS: THIAMINE 100 MG TAB PO SCH ×2 (11:56→17:23)
--- NOTE | 2017-09-20 12:01 | P.PN ---
Progress Note - Text Progress Note Date: 09/20/17 The patient continues to have blood in his urine but by report it is becoming progressively blue crabber in color and is no longer associated with any clots. The patient denies any dysuria. Hemoglobin today is 8.7. The patient's gross hematuria is most likely related to irradiation cystitis and is gradually resolving without any specific treatment. From my standpoint he could be discharged any time. I would like to see him in follow-up in approximately 2 weeks.
[2017-09-20 12:17] LABS: Glucose,Whole Blood 133 mg/dL (75-99)
--- NOTE | 2017-09-20 17:28 | P.PN ---
Progress Note - Text Progress Note Date: 09/20/17 Chief Complaint: Bleeding per rectum and penis History of present complaint: This is a pleasant [address] Gee. Chronic stable medical conditions include diabetes, GERD, hypertension, hypothyroid, diverticulosis. Patient also has underlying chronic COPD, osteoarthritis, atrial fibrillation not a candidate for anticoagulation. Patient has known radiation proctitis with recurrent rectal bleeding. Has had argon plasma coagulation by Dr. Shannon Soliz. Patient was here earlier in the month and had sigmoidoscopy done, bleeding vessel was found that was clipped and yet again argon plasma coagulation was done. Patient indicates presented with bleeding per rectum. This amount is variable. Also this time patient is noticed bleeding to the penis. Also noticed some blood clots to the penis. This has not occurred before. Patient did follow the past with the urologist Dr. Guzman. Today-patient continues to have some slight bleeding from his penis and rectum. Status post 1 unit of blood transfusion. A bit tired. Patient is put on mesalamine enema per GI. Patient's concerned about paying his house rent.and wants to go home Review of systems: Was done for constitutional, cardiovascular, GI, pulmonary. Genitourinary relevant finding as above Current medications reviewed: Aldactone, mesalamine enema, IV ceftriaxone Investigations: hemoglobin 8.2 VITAL SIGNS:97.8, 79, 18, 95/60, 100% room air GENERAL: , laying in bed, comfortable. EYES: Pupils equal. Conjunctiva pale. HEENT: External appearance of nose and ears normal, oral cavity grossly normal. NECK: JVD not raised; masses not palpable. HEART: First and second heart sounds are normal; no edema. LUNGS: Respiratory rate normal; decreased breath sounds, mild wheezing. ABDOMEN: Soft, nontender, liver spleen not palpable, no masses palpable. PSYCH: Alert and oriented x3; mood and affect normal. 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 now slowing down, though still present. -essential hypertension, -diabetes mellitus type 2, on oral hypoglycemic -Chronic gait dysfunction, -persistent atrial fibrillation not a candidate for anticoagulation, -chronic thoracic spine osteoarthritis, -hypothyroidism secondary to thyroidectomy for cancer, -GERD, -COPD in a smoker, -moderate to severe mitral regurgitation, non-rheumatic - severe secondary pulmonary hypertension, secondary to COPD -severe tricuspid regurgitation. Non-rheumatic -Acute blood loss anemia from his recurrent GI bleed and also hematuria-now hemoglobin dropping to 7 with blood pressure running on the lower side -Possible acute UTI Plan: continue current medication treatment plan. Keep up close I on the hemoglobin. The social group worker see they can call the landlord to see he can pay his rent a bit later
[2017-09-20] MEDS: MESALAMINE 4 GM/60 ML ENEMA RECTAL SCH ×2 (20:33→20:35)
[2017-09-20] MEDS: cefTRIAXone IN SWFI 1,000 MG/10 ML SYRINGE IVP SCH (20:56)
[2017-09-21] MEDS: LEVOTHYROXINE 100 MCG TAB PO SCH (06:02)
[2017-09-21 06:30] LABS: Anisocytosis Moderate; Basophils % (A) 0 %; Eosinophils # (A) 0.1 k/uL (0-0.7); Eosinophils % (A) 1 %; HCT 24.7 % (39.0-53.0); HGB 7.7 gm/dL (13.0-17.5); Hypochromasia Slight; Lymphocytes # (A) 0.6 k/uL (1.0-4.8); Lymphocytes % (A) 12 %; MCH 31.5 pg (25.0-35.0); MCHC 31.4 g/dL (31.0-37.0); MCV 100.3 fL (80.0-100.0); Macrocytosis Moderate; Mean Platelet Volume 8.4; Monocytes # (A) 0.3 k/uL (0-1.0); Monocytes % (A) 7 %; Neutrophils # (A) 3.9 k/uL (1.3-7.7); Neutrophils % (A) 78 %; Platelet Count 230 k/uL (150-450); RBC 2.46 m/uL (4.30-5.90); RDW 21.1 % (11.5-15.5); WBC 4.9 k/uL (3.8-10.6)
[2017-09-21] MEDS: SYMBICORT 160-4.5 MCG INHALER INHALATION SCH (08:04)
[2017-09-21] MEDS: IPRATROPIUM-ALBUTEROL 3 ML NEB INHALATION PRN (08:04)
[2017-09-21] MEDS: METOPROLOL TARTRATE 25 MG TAB PO SCH (08:45)
[2017-09-21] MEDS: SPIRONOLACTONE 25 MG TAB PO SCH (08:45)
[2017-09-21] MEDS: DIGOXIN 125 MCG TAB PO SCH (08:45)
[2017-09-21] MEDS: THIAMINE 100 MG TAB PO SCH (08:45)
--- NOTE | 2017-09-21 08:51 | P.PN ---
Subjective Progress Note Date: 09/21/17 Principal diagnosis: radiation proctitis rectal bleeding Reports mild rectal bleeding last night patient refused mesalamine enema. Denies abdominal pain. Hgb 7.7. Objective - Vital Signs Vital signs: Vital Signs Temp 98.1 F 09/21/17 04:00 Pulse 80 09/21/17 08:00 Resp 16 09/21/17 04:00 BP 114/66 09/21/17 04:00 Pulse Ox 97 09/21/17 04:00 Intake & Output 09/20/17 09/21/17 09/21/17 18:59 06:59 18:59 Intake Total 720 240 120 Output Total 1 3 Balance 719 237 120 Weight 66.5 kg Intake: Oral 720 240 120 Output: Urine 0 Stool 1 3 Other: Voiding Method Toilet Toilet Urinal Urinal Diaper Diaper Incontinent Incontinent # Voids 0 1 # Bowel Movements 1 - Exam General appearance: The patient is alert, oriented, in no acute distress. HET: Head is normocephalic and atraumatic. Pupils are equal and reactive. Oropharynx is clear without lesions. Neck: Supple without lymphadenopathy. Trachea midline. Heart: S1 S2. Regular rate and rhythm. Lungs: No crackles or wheezes are heard. Abdomen: Soft, nontender, nondistended with bowel sounds. No peritoneal signs. No palpable organomegaly or masses. Extremities: Normal skin color and turgor. No cyanosis, rash, ulceration, clubbing, or edema. Radial and pedal pulses are 2/4 bilaterally. Neurological: No focal deficits. Strength and sensation are grossly intact. - Labs CBC & Chem 7: 09/21/17 06:08 09/17/17 05:59 Labs: Abnormal Lab Results - Last 24 Hours (Table) 09/20/17 09/21/17 Range/Units 11:26 06:08 RBC 2.46 L (4.30-5.90) m/uL Hgb 7.7 L (13.0-17.5) gm/dL Hct 24.7 L (39.0-53.0) % MCV 100.3 H (80.0-100.0) fL RDW 21.1 H (11.5-15.5) % Lymphocytes # 0.6 L (1.0-4.8) k/uL POC Glucose (mg/dL) 133 H (75-99) mg/dL Assessment and Plan (1) Radiation proctitis Current Visit: Yes Status: Acute Code(s): K62.7 - RADIATION PROCTITIS SNOMED Code(s): 353303487 (2) Hematuria Current Visit: Yes Status: Acute Code(s): R31.9 - HEMATURIA, UNSPECIFIED SNOMED Code(s): 29974261 (3) Rectal bleeding Current Visit: Yes Status: Acute Code(s): K62.5 - HEMORRHAGE OF ANUS AND RECTUM SNOMED Code(s): 95294371 (4) Acute blood loss anemia Current Visit: No Status: Acute Code(s): D62 - ACUTE POSTHEMORRHAGIC ANEMIA SNOMED Code(s): 736439347 Plan: 1. Continue mesalamine enemas [facility]. CBC monitoring. Discharge per medicine 2. Follow-up with PCP 3-5 days with outpatient CBC. Assessment and plan of care discussed with Dr. Soliz
[2017-09-21 08:54] VITALS: RESP 18
[2017-09-21 11:20] VITALS: BP 112/68; PULSE 73; TEMP 97.8
--- NOTE | 2017-09-21 21:27 | DS ---
DISCHARGE SUMMARY DATE OF ADMISSION: 09/16/2017. DATE OF DISCHARGE: 09/21/2017 FINAL DIAGNOSES: 1. Acute on chronic lower gastrointestinal bleed from radiation proctitis with a prior history of argon plasma coagulation and ablation. 2. 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 3. Essential hypertension. 4. Diabetes mellitus type 2 on oral hypoglycemic. 5. Chronic gait dysfunction. 6. Persistent atrial fibrillation. Patient not a candidate for anticoagulation. 7. Chronic thoracic spine osteoarthritis. 8. 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 9. Gastroesophageal reflux disease. 10.Chronic obstructive pulmonary disease in a smoker. 11.Moderate to severe mitral regurgitation, nonrheumatic. 12.Severe secondary pulmonary hypertension secondary to chronic obstructive pulmonary disease. 13.Severe tricuspid regurgitation, nonrheumatic. 14.Acute blood loss anemia from recurrent gastrointestinal bleed and hematuria. HOSPITAL COURSE: This patient received prior history of radiation for his prostate cancer, who has had recurrent lower GI bleed, presented yet again with bleeding. The patient recently had a blood vessel clipped and argon plasma coagulation was carried out. The patient was given mesalamine enema, but actually declined the same. The patient's blood in stool actually has resolved. Hematuria has improved. Seen by Dr. Torey Soliz from GI and Dr. Guzman from Urology. The patient is okay to be discharged. The patient did receive a unit of blood. The patient's hemoglobin was 7.7 at the time of discharge. EXAM: LUNGS: Decreased breath sounds. CARDIOVASCULAR: Heart sounds irregular. PSYCH: AO x3. DISCHARGE MEDICATIONS: 1. Symbicort 160/4.5, 2 puffs b.i.d. 2. Ventolin 1-2 puffs q.i.d. 3. Digoxin 125 mcg p.o. daily. 4. Lopressor 25 p.o. t.i.d. 5. DuoNeb q.4h p.r.n. 6. Atrovent HFA 2 puffs q.i.d. 7. Synthroid 100 mcg p.o. daily. 8. Incruse Ellipta 1 puff daily. 9. Glucotrol XL 2.5 p.o. daily. 10.Glucophage 1000 mg p.o. daily. 11. rectal q.h.s. 12.Aldactone 25 mg p.o. daily. Follow up with Dr. Gee in 3 days, Dr. Torey Soliz on 10/27/2017, Dr. Guzman in 2 weeks. LABS: CBC in 1 week. MMODL / IJN: [id number] /
== END 2017-09-21 17:47 | disposition home or self-care (01) | DRG 699 ==
LOC: EC 15:31 → 6SEL 17:58
PROVIDERS: ADMIT Hospitalist; ATTEND Hospitalist
DX: N30.41 Irradiation cystitis with hematuria (principal); D62 Acute posthemorrhagic anemia; E87.5 Hyperkalemia; I27.29 Other secondary pulmonary hypertension; I08.1 Rheumatic disorders of both mitral and tricuspid valves; I48.1 Persistent atrial fibrillation; K62.7 Radiation proctitis; E11.9 Type 2 diabetes mellitus without complications; E89.0 Postprocedural hypothyroidism; F17.210 Nicotine dependence, cigarettes, uncomplicated; I10 Essential (primary) hypertension; I48.2 Chronic atrial fibrillation; J44.9 Chronic obstructive pulmonary disease, unspecified; K21.9 Gastro-esophageal reflux disease without esophagitis; K57.90 Diverticulosis of intestine, part unspecified, without perforation or abscess without bleeding; K59.00 Constipation, unspecified; M19.90 Unspecified osteoarthritis, unspecified site; M47.814 Spondylosis without myelopathy or radiculopathy, thoracic region; Y84.2 Radiological procedure and radiotherapy as the cause of abnormal reaction of the patient, or of later complication, without mention of misadventure at the time of the procedure; Z79.51 Long term (current) use of inhaled steroids; Z79.84 Long term (current) use of oral hypoglycemic drugs; Z79.899 Other long term (current) drug therapy; Z82.3 Family history of stroke; Z82.5 Family history of asthma and other chronic lower respiratory diseases; Z85.46 Personal history of malignant neoplasm of prostate; Z85.828 Personal history of other malignant neoplasm of skin; Z85.850 Personal history of malignant neoplasm of thyroid; Z87.11 Personal history of peptic ulcer disease; Z88.6 Allergy status to analgesic agent; Z91.81 History of falling; Z92.3 Personal history of irradiation; Z79.890 Hormone replacement therapy
CPT/HCPCS: 36415; 80053; 81001; 82550; 82553; 83735; 84484; 85025; 85027; 85610; 85730; 86850; 86900; 86901; 86920; 87086; 93005; 94640; 96372; 99285

== ENCOUNTER 2017-10-13 11:27 | Inpatient (IN) | payer MEDICARE, OTHER ==
[2017-10-13 12:05] LABS: Anisocytosis Slight; Basophils % (A) 1 %; Eosinophils # (A) 0.1 k/uL (0-0.7); Eosinophils % (A) 2 %; HCT 22.4 % (39.0-53.0); Hypochromasia Marked; Lymphocytes # (A) 0.8 k/uL (1.0-4.8); Lymphocytes % (A) 18 %; MCH 29.8 pg (25.0-35.0); MCHC 30.6 g/dL (31.0-37.0); MCV 97.2 fL (80.0-100.0); Macrocytosis Slight; Mean Platelet Volume 7.9; Monocytes # (A) 0.3 k/uL (0-1.0); Monocytes % (A) 7 %; Neutrophils # (A) 3.1 k/uL (1.3-7.7); Neutrophils % (A) 69 %; Platelet Count 307 k/uL (150-450); Poikilocytosis Slight; RBC 2.31 m/uL (4.30-5.90); RDW 17.8 % (11.5-15.5); WBC 4.5 k/uL (3.8-10.6)
[2017-10-13 12:12] LABS: HGB 6.9 gm/dL (13.0-17.5)
[2017-10-13 12:13] LABS: INR 1.1 (<1.2); Partial Thromboplastin Time 25.5 sec (22.0-30.0); Prothrombin Time 10.6 sec (9.0-12.0)
[2017-10-13 12:20] LABS: ALT 22 U/L (21-72); AST 18 U/L (17-59); Albumin 2.8 g/dL (3.5-5.0); Alkaline Phosphatase 92 U/L (38-126); Anion Gap 15 mmol/L; Blood Urea Nitrogen 11 mg/dL (9-20); Calcium 8.6 mg/dL (8.4-10.2); Carbon Dioxide 18 mmol/L (22-30); Chloride 108 mmol/L (98-107); Glucose 74 mg/dL (74-99); Magnesium 1.6 mg/dL (1.6-2.3); Sodium 141 mmol/L (137-145); Total Bilirubin 0.2 mg/dL (0.2-1.3); Total Protein 5.7 g/dL (6.3-8.2)
--- NOTE | 2017-10-13 13:51 | ED ---
Recheck HPI - General Chief Complaint: Recheck/Abnormal Lab/Rx Stated Complaint: Issue Time Seen by Provider: 10/13/17 11:29 Source: patient Mode of arrival: EMS Limitations: no limitations - Related Data Home Medications Medication Instructions Recorded Confirmed Ipratropium [place] [Atrovent Hfa] 2 puff INHALATION RT-QID 09/16/17 10/13/17 Levothyroxine Sodium [Synthroid] 100 mcg PO DAILY 09/16/17 10/13/17 Umeclidinium [place] [Incruse 1 puff INHALATION RT-DAILY 09/16/17 10/13/17 Ellipta] glipiZIDE [Glucotrol XL] 2.5 mg PO DAILY 09/16/17 10/13/17 metFORMIN HCL [Glucophage] 1,000 mg PO DAILY 09/16/17 10/13/17 Furosemide [Lasix] 40 mg PO DAILY 10/13/17 10/13/17 Spironolactone 50 mg PO DAILY 10/13/17 10/13/17 Previous Rx's Medication Instructions Recorded Budesonide-Formot 160-4.5 Mcg 2 puff INHALATION RT-BID #1 inhaler 10/27/16 [Symbicort 160-4.5 Mcg Inhaler] Albuterol Inhaler [Ventolin Hfa 1 - 2 puff INHALATION RT-QID #0 01/13/17 Inhaler] Digoxin [Lanoxin] 125 mcg PO DAILY #30 tab 01/13/17 Metoprolol Tartrate [Lopressor] 25 mg PO TID #90 tab 01/13/17 Ipratropium-Albuterol Nebulize 3 ml INHALATION RT-Q4H PRN 08/20/17 [Duoneb 0.5 mg-3 mg/3 ml Soln] ampul.neb Mesalamine W/Cleansing Wipes 4 gm RECTAL HS #14 ml 09/20/17 [Rowasa 4 gm/60 ml Enema Kit] Allergies Allergy/AdvReac Type Severity Reaction Status Date / Time aspirin Allergy Rash/Hives Verified 10/13/17 11:50 Review of Systems ROS Statement: Those systems with pertinent positive or pertinent negative responses have been documented in the HPI. ROS Other: All systems not noted in ROS Statement are negative. Past Medical History Past Medical History: Atrial Fibrillation, Cancer, COPD, Diabetes Mellitus, GERD /Reflux, Hypertension, Liver Disease, Osteoarthritis (OA), Pneumonia, Prostate Disorder, Thyroid Disorder Additional Past Medical History / Comment(s): Other HX: skin cancers with removals, prostrate cancer with radiation, lower GI bleed thought secondary to radiation proctitis, diverticular disease, chronic anemia, duodenal ulcer, ETOH , history of ETOH withdrawal/delirium tremors, R leg weakness, history of falls , chronic lower extremity edema, arthritis thoracic spine. History of Any Multi-Drug Resistant Organisms: None Reported Past Surgical History: Bowel Resection Additional Past Surgical History / Comment(s): thyroidectomy, colonoscopy/ polypectomy, skin cancer removed, bilateral cataracts, bowel resection-d/t diverticulits Past Anesthesia/Blood Transfusion Reactions: No Reported Reaction Past Psychological History: No Psychological Hx Reported Smoking Status: Current every day smoker Past Alcohol Use History: Abuse, Daily Past Drug Use History: None Reported - Past Family History Father Family Medical History: Asthma, CVA/TIA Additional Family Medical History / Comment(s): pacemaker, smoker Mother Family Medical History: Chest Pain / Angina Additional Family Medical History / Comment(s): smoker General Exam Limitations: no limitations Rectal exam: Present: normal inspection, heme (+) stool, other (Red kaylan colored stools no gross blood) exam: Present: normal inspection. Absent: circumcision Course Vital Signs 10/13/17 11:29 Temperature 97.2 F L Pulse Rate 101 H Respiratory 18 Rate Blood Pressure 107/71 O2 Sat by Pulse 100 Oximetry Medical Decision Making - Medical Decision Making I did discuss findings the patient and with Dr. Redman patient will be admitted with GI consultation she does have a history of radiation proctitis he will get a unit of blood. - Lab Data Result diagrams: 10/13/17 11:51 10/13/17 11:51 Lab Results 10/13/17 10/13/17 10/13/17 Range/Units 11:51 11:51 11:51 WBC 4.5 (3.8-10.6) k/uL RBC 2.31 L (4.30-5.90) m/uL Hgb 6.9 L* (13.0-17.5) gm/dL Hct 22.4 L (39.0-53.0) % MCV 97.2 (80.0-100.0) fL MCH 29.8 (25.0-35.0) pg MCHC 30.6 L (31.0-37.0) g/dL RDW 17.8 H (11.5-15.5) % Plt Count 307 (150-450) k/uL Neutrophils % 69 % Lymphocytes % 18 % Monocytes % 7 % Eosinophils % 2 % Basophils % 1 % Neutrophils # 3.1 (1.3-7.7) k/uL Lymphocytes # 0.8 L (1.0-4.8) k/uL Monocytes # 0.3 (0-1.0) k/uL Eosinophils # 0.1 (0-0.7) k/uL Basophils # 0.0 (0-0.2) k/uL Hypochromasia Marked Poikilocytosis Slight Anisocytosis Slight Macrocytosis Slight PT 10.6 (9.0-12.0) sec INR 1.1 (<1.2) APTT 25.5 (22.0-30.0) sec Sodium (137-145) mmol/L Potassium (3.5-5.1) mmol/L Chloride (98-107) mmol/L Carbon Dioxide (22-30) mmol/L Anion Gap mmol/L BUN (9-20) mg/dL Creatinine (0.66-1.25) mg/dL Est GFR (CKD-EPI)AfAm (>60 ml/min/1.73 sqM) Est GFR (CKD-EPI)NonAf (>60 ml/min/1.73 sqM) Glucose (74-99) mg/dL Calcium (8.4-10.2) mg/dL Magnesium (1.6-2.3) mg/dL Total Bilirubin (0.2-1.3) mg/dL AST (17-59) U/L ALT (21-72) U/L Alkaline Phosphatase (38-126) U/L Total Protein (6.3-8.2) g/dL Albumin (3.5-5.0) g/dL Stool Occult Blood (Negative) Serum Alcohol mg/dL Blood Type A Positive Blood Type Recheck No Antibody Screen NEGATIVE Spec Expiration Date 10/16/2017 - 235010/13/17 10/13/17 10/13/17 Range/Units 11:51 11:51 13:07 WBC (3.8-10.6) k/uL RBC (4.30-5.90) m/uL Hgb (13.0-17.5) gm/dL Hct (39.0-53.0) % MCV (80.0-100.0) fL MCH (25.0-35.0) pg MCHC (31.0-37.0) g/dL RDW (11.5-15.5) % Plt Count (150-450) k/uL Neutrophils % % Lymphocytes % % Monocytes % % Eosinophils % % Basophils % % Neutrophils # (1.3-7.7) k/uL Lymphocytes # (1.0-4.8) k/uL Monocytes # (0-1.0) k/uL Eosinophils # (0-0.7) k/uL Basophils # (0-0.2) k/uL Hypochromasia Poikilocytosis Anisocytosis Macrocytosis PT (9.0-12.0) sec INR (<1.2) APTT (22.0-30.0) sec Sodium 141 (137-145) mmol/L Potassium 4.0 (3.5-5.1) mmol/L Chloride 108 H (98-107) mmol/L Carbon Dioxide 18 L (22-30) mmol/L Anion Gap 15 mmol/L BUN 11 (9-20) mg/dL Creatinine 0.65 L (0.66-1.25) mg/dL Est GFR (CKD-EPI)AfAm >90 (>60 ml/min/1.73 sqM) Est GFR (CKD-EPI)NonAf >90 (>60 ml/min/1.73 sqM) Glucose 74 (74-99) mg/dL Calcium 8.6 (8.4-10.2) mg/dL Magnesium 1.6 (1.6-2.3) mg/dL Total Bilirubin 0.2 (0.2-1.3) mg/dL AST 18 (17-59) U/L ALT 22 (21-72) U/L Alkaline Phosphatase 92 (38-126) U/L Total Protein 5.7 L (6.3-8.2) g/dL Albumin 2.8 L (3.5-5.0) g/dL Stool Occult Blood Positive (Negative) Serum Alcohol 43 mg/dL Blood Type Blood Type Recheck Antibody Screen Spec Expiration Date - Radiology Data Radiology results: report reviewed (Imaging and report reviewed findings), image reviewed Disposition Clinical Impression: GI (gastrointestinal bleed), Radiation proctitis, Anemia Disposition: ADMITTED IP TO THIS [facility] Condition: Stable Referrals: Jesse Gee MD [Primary Care Provider] - 1-2 days
--- NOTE | 2017-10-13 13:54 | ED ---
General Adult HPI - General Chief complaint: Recheck/Abnormal Lab/Rx Stated complaint: Issue Time Seen by Provider: 10/13/17 11:29 Source: patient, RN notes reviewed Mode of arrival: EMS Limitations: no limitations - History of Present Illness Initial comments: This is an 82-year-old male history of prostate cancer status post radiation treatment who does have) history of radiation proctitis and history of prostatitis and radiation who presents from home with reports of a hemoglobin 6.6. He was seen in his doctor's office yesterday and labs are done he was called to come in the hospital today. He denies any headache dizziness he does have some generalized weakness no blurry vision he does admit to drinking alcohol today. No fevers chills or sweats. No gross abdominal pain no dysuria he does have occasional hematuria which is chronic. He denies any problem bowel movement no blood per rectum - Related Data Home Medications Medication Instructions Recorded Confirmed Ipratropium [place] [Atrovent Hfa] 2 puff INHALATION RT-QID 09/16/17 10/13/17 Levothyroxine Sodium [Synthroid] 100 mcg PO DAILY 09/16/17 10/13/17 Umeclidinium [place] [Incruse 1 puff INHALATION RT-DAILY 09/16/17 10/13/17 Ellipta] glipiZIDE [Glucotrol XL] 2.5 mg PO DAILY 09/16/17 10/13/17 metFORMIN HCL [Glucophage] 1,000 mg PO DAILY 09/16/17 10/13/17 Furosemide [Lasix] 40 mg PO DAILY 10/13/17 10/13/17 Spironolactone 50 mg PO DAILY 10/13/17 10/13/17 Previous Rx's Medication Instructions Recorded Budesonide-Formot 160-4.5 Mcg 2 puff INHALATION RT-BID #1 inhaler 10/27/16 [Symbicort 160-4.5 Mcg Inhaler] Albuterol Inhaler [Ventolin Hfa 1 - 2 puff INHALATION RT-QID #0 01/13/17 Inhaler] Digoxin [Lanoxin] 125 mcg PO DAILY #30 tab 01/13/17 Metoprolol Tartrate [Lopressor] 25 mg PO TID #90 tab 01/13/17 Ipratropium-Albuterol Nebulize 3 ml INHALATION RT-Q4H PRN 08/20/17 [Duoneb 0.5 mg-3 mg/3 ml Soln] ampul.neb Mesalamine W/Cleansing Wipes 4 gm RECTAL HS #14 ml 09/20/17 [Rowasa 4 gm/60 ml Enema Kit] Allergies Allergy/AdvReac Type Severity Reaction Status Date / Time aspirin Allergy Rash/Hives Verified 10/13/17 11:50 Review of Systems ROS Statement: Those systems with pertinent positive or pertinent negative responses have been documented in the HPI. ROS Other: All systems not noted in ROS Statement are negative. Past Medical History Past Medical History: Atrial Fibrillation, Cancer, COPD, Diabetes Mellitus, GERD /Reflux, Hypertension, Liver Disease, Osteoarthritis (OA), Pneumonia, Prostate Disorder, Thyroid Disorder Additional Past Medical History / Comment(s): Other HX: skin cancers with removals, prostrate cancer with radiation, lower GI bleed thought secondary to radiation proctitis, diverticular disease, chronic anemia, duodenal ulcer, ETOH , history of ETOH withdrawal/delirium tremors, R leg weakness, history of falls , chronic lower extremity edema, arthritis thoracic spine. History of Any Multi-Drug Resistant Organisms: None Reported Past Surgical History: Bowel Resection Additional Past Surgical History / Comment(s): thyroidectomy, colonoscopy/ polypectomy, skin cancer removed, bilateral cataracts, bowel resection-d/t diverticulits Past Anesthesia/Blood Transfusion Reactions: No Reported Reaction Past Psychological History: No Psychological Hx Reported Smoking Status: Current every day smoker Past Alcohol Use History: Abuse, Daily Past Drug Use History: None Reported - Past Family History Father Family Medical History: Asthma, CVA/TIA Additional Family Medical History / Comment(s): pacemaker, smoker Mother Family Medical History: Chest Pain / Angina Additional Family Medical History / Comment(s): smoker General Exam - General Exam Comments Initial Comments: This is a well-developed well-nourished awake alert but pale appearing male he does have the smell of alcohol conjoiners on his breath Limitations: no limitations General appearance: alert, in no apparent distress Head exam: Present: atraumatic, normocephalic, normal inspection Eye exam: Present: normal appearance, PERRL, EOMI. Absent: scleral icterus, conjunctival injection, periorbital swelling ENT exam: Present: normal exam, mucous membranes moist Neck exam: Present: normal inspection. Absent: tenderness, meningismus, lymphadenopathy Respiratory exam: Present: normal lung sounds bilaterally. Absent: respiratory distress, wheezes, rales, rhonchi, stridor Cardiovascular Exam: Present: regular rate, normal rhythm, normal heart sounds. Absent: systolic murmur, diastolic murmur, rubs, gallop, clicks GI/Abdominal exam: Present: soft, normal bowel sounds. Absent: distended, tenderness, guarding, rebound, rigid Rectal exam: Present: other (See the other part of today's chart) Extremities exam: Present: normal inspection, full ROM, normal capillary refill. Absent: tenderness, pedal edema, joint swelling, calf tenderness Back exam: Present: normal inspection Neurological exam: Present: alert, oriented X3, CN II-XII intact Psychiatric exam: Present: normal affect, normal mood Skin exam: Present: warm, dry, intact, pallor. Absent: rash Course Vital Signs 10/13/17 11:29 Temperature 97.2 F L Pulse Rate 101 H Respiratory 18 Rate Blood Pressure 107/71 O2 Sat by Pulse 100 Oximetry Medical Decision Making - Lab Data Result diagrams: 10/13/17 11:51 10/13/17 11:51 Lab Results 10/13/17 10/13/17 10/13/17 Range/Units 11:51 11:51 11:51 WBC 4.5 (3.8-10.6) k/uL RBC 2.31 L (4.30-5.90) m/uL Hgb 6.9 L* (13.0-17.5) gm/dL Hct 22.4 L (39.0-53.0) % MCV 97.2 (80.0-100.0) fL MCH 29.8 (25.0-35.0) pg MCHC 30.6 L (31.0-37.0) g/dL RDW 17.8 H (11.5-15.5) % Plt Count 307 (150-450) k/uL Neutrophils % 69 % Lymphocytes % 18 % Monocytes % 7 % Eosinophils % 2 % Basophils % 1 % Neutrophils # 3.1 (1.3-7.7) k/uL Lymphocytes # 0.8 L (1.0-4.8) k/uL Monocytes # 0.3 (0-1.0) k/uL Eosinophils # 0.1 (0-0.7) k/uL Basophils # 0.0 (0-0.2) k/uL Hypochromasia Marked Poikilocytosis Slight Anisocytosis Slight Macrocytosis Slight PT 10.6 (9.0-12.0) sec INR 1.1 (<1.2) APTT 25.5 (22.0-30.0) sec Sodium (137-145) mmol/L Potassium (3.5-5.1) mmol/L Chloride (98-107) mmol/L Carbon Dioxide (22-30) mmol/L Anion Gap mmol/L BUN (9-20) mg/dL Creatinine (0.66-1.25) mg/dL Est GFR (CKD-EPI)AfAm (>60 ml/min/1.73 sqM) Est GFR (CKD-EPI)NonAf (>60 ml/min/1.73 sqM) Glucose (74-99) mg/dL Calcium (8.4-10.2) mg/dL Magnesium (1.6-2.3) mg/dL Total Bilirubin (0.2-1.3) mg/dL AST (17-59) U/L ALT (21-72) U/L Alkaline Phosphatase (38-126) U/L Total Protein (6.3-8.2) g/dL Albumin (3.5-5.0) g/dL Stool Occult Blood (Negative) Serum Alcohol mg/dL Blood Type A Positive Blood Type Recheck No Antibody Screen NEGATIVE Spec Expiration Date 10/16/2017 - 235010/13/17 10/13/17 10/13/17 Range/Units 11:51 11:51 13:07 WBC (3.8-10.6) k/uL RBC (4.30-5.90) m/uL Hgb (13.0-17.5) gm/dL Hct (39.0-53.0) % MCV (80.0-100.0) fL MCH (25.0-35.0) pg MCHC (31.0-37.0) g/dL RDW (11.5-15.5) % Plt Count (150-450) k/uL Neutrophils % % Lymphocytes % % Monocytes % % Eosinophils % % Basophils % % Neutrophils # (1.3-7.7) k/uL Lymphocytes # (1.0-4.8) k/uL Monocytes # (0-1.0) k/uL Eosinophils # (0-0.7) k/uL Basophils # (0-0.2) k/uL Hypochromasia Poikilocytosis Anisocytosis Macrocytosis PT (9.0-12.0) sec INR (<1.2) APTT (22.0-30.0) sec Sodium 141 (137-145) mmol/L Potassium 4.0 (3.5-5.1) mmol/L Chloride 108 H (98-107) mmol/L Carbon Dioxide 18 L (22-30) mmol/L Anion Gap 15 mmol/L BUN 11 (9-20) mg/dL Creatinine 0.65 L (0.66-1.25) mg/dL Est GFR (CKD-EPI)AfAm >90 (>60 ml/min/1.73 sqM) Est GFR (CKD-EPI)NonAf >90 (>60 ml/min/1.73 sqM) Glucose 74 (74-99) mg/dL Calcium 8.6 (8.4-10.2) mg/dL Magnesium 1.6 (1.6-2.3) mg/dL Total Bilirubin 0.2 (0.2-1.3) mg/dL AST 18 (17-59) U/L ALT 22 (21-72) U/L Alkaline Phosphatase 92 (38-126) U/L Total Protein 5.7 L (6.3-8.2) g/dL Albumin 2.8 L (3.5-5.0) g/dL Stool Occult Blood Positive (Negative) Serum Alcohol 43 mg/dL Blood Type Blood Type Recheck Antibody Screen Spec Expiration Date Disposition Clinical Impression: GI (gastrointestinal bleed), Radiation proctitis, Anemia Disposition: ADMITTED IP TO THIS [facility] Condition: Stable Referrals: Jesse Gee MD [Primary Care Provider] - 1-2 days
[2017-10-13] MEDS ORDERED: NALOXONE 0.4 MG/ML 1 ML VIAL IV PRN ×2 (13:55→17:21)
--- NOTE | 2017-10-13 14:57 | XR ---
EXAMINATION TYPE: XR abdomen acute w cxr DATE OF EXAM: 10/13/2017 COMPARISON: 08/19/2017 HISTORY: Pain TECHNIQUE: Single view of the chest and 2 views of the abdomen are submitted. FINDINGS: Single view of the chest fails demonstrate evidence for acute pulmonary disease. Scattered senescent parenchymal change. Nodular right upper lobe. There is no evidence for pneumoperitoneum. Bowel gas pattern is nonspecific as there is mild gaseous distention of small and large bowel without definite obstruction at this time. Correlate for ileus. No sizeable air fluid levels.No mass effects are seen. No unusual calcifications. IMPRESSION: 1. Nonspecific nonobstructive bowel gas pattern.
[2017-10-13] MEDS: SODIUM CHLORIDE 0.9% 1,000 ML IV SCH (16:39)
[2017-10-13] MEDS ORDERED: MELATONIN 3 MG TABLET PO PRN (17:21)
[2017-10-13] MEDS ORDERED: MAGNESIUM HYDROXIDE 2,400 MG/10 ML CUP PO PRN (17:21)
[2017-10-13] MEDS ORDERED: CALCIUM CARBONATE 500 MG CHEWABLE PO PRN (17:21)
[2017-10-13] MEDS ORDERED: ACETAMINOPHEN TAB 325 MG TAB PO PRN (17:21)
[2017-10-13] MEDS ORDERED: ONDANSETRON 4 MG/2 ML VIAL IVP PRN (17:21)
[2017-10-13] MEDS ORDERED: LORazepam 0.5 MG TAB PO PRN (17:21)
[2017-10-13] MEDS ORDERED: LACTULOSE 20 GM/30 ML CUP PO PRN (17:21)
[2017-10-13] MEDS: METOPROLOL TARTRATE 25 MG TAB PO SCH (18:01)
[2017-10-13] MEDS: IPRATROPIUM-ALBUTEROL 3 ML NEB INHALATION SCH ×2 (18:11→20:10)
[2017-10-13] MEDS: PANTOPRAZOLE 40 MG/10 ML VIAL IV SCH (19:56)
[2017-10-13] MEDS: SYMBICORT 160-4.5 MCG INHALER INHALATION SCH (20:12)
--- NOTE | 2017-10-14 00:07 | HP ---
HISTORY AND PHYSICAL DATE OF ADMISSION: 10/13/2017 PRESENTING COMPLAINT: Low hemoglobin. HISTORY OF PRESENTING COMPLAINT: This is an 82-year-old patient well-known to me, follows with Dr. Gee, currently at [facility]. Chronic stable medical conditions include diabetes, GERD, hypertension, hypothyroid, diverticulosis. The patient also has underlying chronic conditions that include COPD, osteoarthritis, atrial fibrillation, not a candidate for anticoagulation. The patient also has known radiation proctitis with recurrent rectal bleeding. The patient has also had argon plasma coagulation done by Dr. Torey Soliz twice in the last few months. Also, patient in early August had a sigmoidoscopy. A bleeding vessel was found that was clipped and an argon plasma coagulation was done. The patient has also had radiation cystitis for which patient does intermittently bleed. The patient has followed with Dr. Guzman. At this point it is understood that he will drop the hemoglobin and will get transfused intermittently. The patient was sent in for hemoglobin less than 7. A unit of blood was ordered from the ER. The patient does feel a little bit tired. The patient has not otherwise noticed any blood in his stool. REVIEW OF SYSTEMS: CONSTITUTIONAL: Tired. HEENT: None. RESPIRATORY: Occasionally short of breath. CARDIOVASCULAR: None. GASTROINTESTINAL: As above. GENITOURINARY: Some blood in the urine. MUSCULOSKELETAL: None. DERMATOLOGIC: None. HEMATOLOGIC: None. LYMPHATIC: None. PSYCHIATRY: Forgetful. NEUROLOGICAL: None. PAST MEDICAL HISTORY: Recurrent lower GI bleed from radiation proctitis, hematuria from radiation cystitis, essential hypertension, diabetes mellitus type 2, gait dysfunction, persistent atrial fibrillation, not a candidate for anticoagulation, chronic thoracic spine osteoarthritis, hypothyroidism, GERD, COPD, moderate to severe mitral regurgitation, severe secondary pulmonary hypertension, severe tricuspid regurgitation, thyroid cancer with thyroidectomy, duodenal ulcer. PAST SURGICAL HISTORY: Bowel resection, thyroidectomy, skin cancer removed, bilateral cataract surgery, bowel resection for diverticulitis. HOME MEDICATIONS: 1. Aldactone 50 mg p.o. daily. 2. Lasix 40 mg p.o. daily. 3. Glucophage 1000 mg p.o. daily. 4. Glucotrol XL 2.5 p.o. daily. 5. Incruse Ellipta 1 puff daily. 6. Lopressor 25 p.o. t.i.d. 7. Rowasa 4 g rectal q.h.s. 8. Mesalamine. 9. Synthroid 100 mcg p.o. daily. 10.DuoNeb q.4h p.r.n. 11.Atrovent HFA 2 puffs q.i.d. 12.Digoxin 125 mcg p.o. daily. 13.Symbicort 160/4.5, 2 puffs b.i.d. 14.Ventolin HFA 1 or 2 puffs q.i.d. ALLERGIES: ASPIRIN. PHYSICAL EXAMINATION: Temperature 97.1, pulse 106, respirations 16, blood pressure 109/61, pulse ox 100% on room air. GENERAL APPEARANCE: Average build, lying in bed, awake. EYES: Pupils equal. Conjunctivae pale. HEENT: External nose and ears normal. Oral cavity normal. Decreased hearing. NECK: JVD not raised. Mass not palpable. RESPIRATORY: Effort normal. LUNGS: Decreased breath sounds. CARDIOVASCULAR: Heart sounds irregular. No edema. ABDOMEN: Soft, nontender. Liver and spleen not palpable. LYMPHATIC: No lymph node palpable in neck or axillae. PSYCHIATRY: Alert and oriented x3. Mood and affect normal. NEUROLOGICAL: Pupils equal. Cranial nerves grossly intact. Power and sensation grossly intact. INVESTIGATIONS: White count 4.5, hemoglobin 6.9. It was 7.7 on 09/21/2017. Platelets normal. Potassium 4.0, BUN 11, creatinine 0.65. Stool occult blood positive. ASSESSMENT: 1. Acute lower gastrointestinal bleed on a chronic gastrointestinal bleed from patient having radiation proctitis and hematuria with a prior history of argon plasma coagulation. 2. 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 3. Essential hypertension. 4. Diabetes mellitus type 2 on oral hypoglycemic. 5. Chronic gait dysfunction. 6. Persistent atrial fibrillation, not a candidate for anticoagulation. 7. Chronic thoracic spine osteoarthritis. 8. 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 9. Gastroesophageal reflux disease. 10.Chronic obstructive pulmonary disease. 11.Smoker. 12.Moderate to severe mitral regurgitation, nonrheumatic. 13.Severe secondary pulmonary hypertension secondary to chronic obstructive pulmonary disease. 14.Severe tricuspid regurgitation, nonrheumatic. PLAN: Home medications resumed. Patient was on 2 units of blood from the ER. Care was discussed with the patient. Patient is very keen to go back. I told him we need to make sure he does not drop his hemoglobin further. Recheck hemoglobin in the morning. GI was consulted. The patient probably will be having a conservative approach. MMODL / IJN: [id number] /
[2017-10-14] MEDS: METOPROLOL TARTRATE 25 MG TAB PO SCH ×2 (01:36→08:25)
[2017-10-14] MEDS: SODIUM CHLORIDE 0.9% 1,000 ML IV SCH (03:18)
[2017-10-14 05:47] LABS: Anisocytosis Slight; Basophils % (A) 1 %; Eosinophils # (A) 0.1 k/uL (0-0.7); Eosinophils % (A) 3 %; Hypochromasia Marked; Lymphocytes # (A) 0.8 k/uL (1.0-4.8); Lymphocytes % (A) 18 %; MCH 30.9 pg (25.0-35.0); MCHC 32.6 g/dL (31.0-37.0); MCV 94.8 fL (80.0-100.0); Mean Platelet Volume 7.6; Monocytes # (A) 0.3 k/uL (0-1.0); Monocytes % (A) 7 %; Neutrophils % (A) 69 %; Platelet Count 270 k/uL (150-450); Poikilocytosis Moderate; RBC 2.22 m/uL (4.30-5.90); WBC 4.3 k/uL (3.8-10.6)
[2017-10-14 05:49] LABS: HGB 6.9 gm/dL (13.0-17.5)
--- NOTE | 2017-10-14 06:21 | P.CONS ---
History of Present Illness - Reason for Consult Consult date: 10/14/17 GI bleed anemia Requesting physician: Ramez Redman - History of Present Illness 82-year-old gentleman well-known to the GI service with a history of prostate carcinoma/radiation, EtOH abuse, diverticulosis, chronic atrial fibrillation, thyroid cancer, diabetes, hypertension, recurrent radiation proctitis and chronic lower GI bleeds. Admitted with reports of abnormal outpatient CBC. Patient was taking alcohol prior to admission. Still passing intermittent blood tinged urine. Denies gross hematochezia or melena. Intermittent rectal bleeding. Denies abdominal pain. Recently hospitalized a month ago with anemia hematuria and intermittent rectal bleeding. He was advised to mesalamine enemas but refused. Discharge hemoglobin was 7.7. Admission hematoma 6.9. Platelet 307. Received 1 unit of blood and current hemoglobin is still 6.9. BUN 11. Creatinine 0.6. Denies abdominal pain. He is quite agitated this morning requesting to be discharged refusing blood draws. Flexible sigmoidoscopy October 2016 reported radiation proctitis status post APC. Flexible sigmoidoscopy 08/25/2017 to 7 m superficial ulceration with visible vessel in the distal rectum status post resolution clip placement with scattered mild radiation proctitis. Review of Systems Constitutional: Denies fever, chills, sweats, weight gain, or loss. HEENT: Negative for migraines, blurred vision or loss, earaches, drainage, tinnitus, oral mucosal lesions, dysphagia, or odynophagia. Cardiac: Atrial fibrillation. Hypertension. Negative for chest pain, arrhythmias, or palpitation. Respiratory: Recent admission for pneumonia. Negative for shortness of breath, hemoptysis, cough, or sputum production. Gastrointestinal: See HPI for pertinent findings. Genitourinary: Prostate carcinoma with radiation. Negative for hematuria, urgency, frequency, polyuria, dysuria, or penile discharge. Musculoskeletal: Negative for muscle aches, swelling, arthritis, and arthralgias. Neurologic: Negative for stroke or TIA. Endocrine: Thyroid carcinoma.. Skin: Skin carcinoma.. Psychiatric: Negative history for depression and anxiety Past Medical History Past Medical History: Atrial Fibrillation, Cancer, COPD, Diabetes Mellitus, GERD /Reflux, Hypertension, Liver Disease, Osteoarthritis (OA), Pneumonia, Prostate Disorder, Thyroid Disorder Additional Past Medical History / Comment(s): Other HX: skin cancers with removals, prostrate cancer with radiation, lower GI bleed thought secondary to radiation proctitis, diverticular disease, chronic anemia, duodenal ulcer, ETOH , history of ETOH withdrawal/delirium tremors, R leg weakness, history of falls , chronic lower extremity edema, arthritis thoracic spine. History of Any Multi-Drug Resistant Organisms: None Reported Past Surgical History: Bowel Resection Additional Past Surgical History / Comment(s): thyroidectomy, colonoscopy/ polypectomy, skin cancer removed, bilateral cataracts, bowel resection-d/t diverticulits Past Anesthesia/Blood Transfusion Reactions: No Reported Reaction Smoking Status: Current every day smoker - Past Family History Father Family Medical History: Asthma, CVA/TIA Additional Family Medical History / Comment(s): pacemaker, smoker Mother Family Medical History: Chest Pain / Angina Additional Family Medical History / Comment(s): smoker Medications and Allergies Home Medications Medication Instructions Recorded Confirmed Type Budesonide-Formot 160-4.5 Mcg 2 puff INHALATION RT-BID #1 inhaler 10/27/1610/13 Rx [Symbicort 160-4.5 Mcg Inhaler] Albuterol Inhaler [Ventolin Hfa 1 - 2 puff INHALATION RT-QID #0 01/13/17 Rx Inhaler] Digoxin [Lanoxin] 125 mcg PO DAILY #30 tab 01/13/17 10/13/17 Rx Metoprolol Tartrate [Lopressor] 25 mg PO TID #90 tab 01/13/17 10/13/17 Rx Ipratropium-Albuterol Nebulize 3 ml INHALATION RT-Q4H PRN 08/20/17 10/13/17 Rx [Duoneb 0.5 mg-3 mg/3 ml Soln] ampul.neb Ipratropium [place] [Atrovent Hfa] 2 puff INHALATION RT-QID 09/16/17 10/13/17 History Levothyroxine Sodium [Synthroid] 100 mcg PO DAILY 09/16/17 10/13/17 History Umeclidinium [place] [Incruse 1 puff INHALATION RT-DAILY 09/16/17 10/13/17 History Ellipta] glipiZIDE [Glucotrol XL] 2.5 mg PO DAILY 09/16/17 10/13/17 History metFORMIN HCL [Glucophage] 1,000 mg PO DAILY 09/16/17 10/13/17 History Mesalamine W/Cleansing Wipes 4 gm RECTAL HS #14 ml 09/20/17 10/13/17 Rx [Rowasa 4 gm/60 ml Enema Kit] Furosemide [Lasix] 40 mg PO DAILY 10/13/17 10/13/17 History Spironolactone 50 mg PO DAILY 10/13/17 10/13/17 History Allergies Allergy/AdvReac Type Severity Reaction Status Date / Time aspirin Allergy Rash/Hives Verified 10/13/17 11:50 Physical Exam Vitals: Vital Signs Temp Pulse Pulse Resp BP BP Pulse Ox 10/14/17 04:00 105 H 16 10/14/17 00:00 105 H 16 10/13/17 20:23 82 16 10/13/17 20:13 80 16 95 10/13/17 20:00 105 H 16 96/51 99 10/13/17 19:01 97.1 F L 106 H 16 109/61 100 10/13/17 16:51 97.8 F 110 H 18 115/58 100 10/13/17 16:21 97.4 F L 99 16 118/62 100 10/13/17 16:11 97.8 F 110 H 18 108/56 100 10/13/17 15:02 133 H 16 10/13/17 15:00 98.2 F 133 H 18 127/70 100 10/13/17 14:35 98 F 10/13/17 13:36 89 20 115/60 96 10/13/17 13:06 82 108/66 96 10/13/17 12:36 92 105/67 100 10/13/17 11:29 97.2 F L 101 H 18 107/71 100 Intake and Output 10/13/17 10/13/17 10/14/17 14:59 22:59 06:59 Intake Total 550 0 Output Total 0 0 Balance 550 0 Intake: Oral 240 0 Blood Product 310 Rc As-1 Unit 310 [id number] Output: Urine 0 0 Other: Weight 72.575 kg 68.5 kg General appearance: The patient is alert, oriented, in no acute distress. HET: Head is normocephalic and atraumatic. Pupils are equal and reactive. Oropharynx is clear without lesions. Neck: Supple without lymphadenopathy. Trachea midline. Heart: S1 S2. Regular rate and rhythm. Lungs: No crackles or wheezes are heard. Abdomen: Soft, nontender, nondistended with bowel sounds. No peritoneal signs. No palpable organomegaly or masses. Extremities: Normal skin color and turgor. No cyanosis, rash, ulceration, clubbing, or edema. Radial and pedal pulses are 2/4 bilaterally. Neurological: No focal deficits. Strength and sensation are grossly intact. Results CBC & Chem 7: 10/14/17 05:15 10/13/17 11:51 Labs: Abnormal Lab Results - Last 24 Hours (Table) 10/13/17 10/13/17 10/13/17 Range/Units 11:51 11:51 11:51 RBC 2.31 L (4.30-5.90) m/uL Hgb 6.9 L* (13.0-17.5) gm/dL Hct 22.4 L (39.0-53.0) % MCHC 30.6 L (31.0-37.0) g/dL RDW 17.8 H (11.5-15.5) % Lymphocytes # 0.8 L (1.0-4.8) k/uL Chloride 108 H (98-107) mmol/L Carbon Dioxide 18 L (22-30) mmol/L Creatinine 0.65 L (0.66-1.25) mg/dL Total Protein 5.7 L (6.3-8.2) g/dL Albumin 2.8 L (3.5-5.0) g/dL Crossmatch See Detail 10/14/17 Range/Units 05:15 RBC 2.22 L (4.30-5.90) m/uL Hgb 6.9 L* (13.0-17.5) gm/dL Hct 21.0 L (39.0-53.0) % MCHC (31.0-37.0) g/dL RDW 17.0 H (11.5-15.5) % Lymphocytes # 0.8 L (1.0-4.8) k/uL Chloride (98-107) mmol/L Carbon Dioxide (22-30) mmol/L Creatinine (0.66-1.25) mg/dL Total Protein (6.3-8.2) g/dL Albumin (3.5-5.0) g/dL Crossmatch Assessment and Plan (1) Anemia Narrative/Plan: Multifactorial possible combination of intermittent bleeding from radiation proctitis as well as blood loss from hematuria. Current Visit: Yes Status: Acute Code(s): D64.9 - ANEMIA, UNSPECIFIED SNOMED Code(s): 721218156 (2) Radiation proctitis Current Visit: Yes Status: Acute Code(s): K62.7 - RADIATION PROCTITIS SNOMED Code(s): 635431167 (3) GI bleed Current Visit: Yes Status: Acute Code(s): K92.2 - GASTROINTESTINAL HEMORRHAGE, UNSPECIFIED SNOMED Code(s): 90030876 (4) Acute blood loss anemia Current Visit: No Status: Acute Code(s): D62 - ACUTE POSTHEMORRHAGIC ANEMIA SNOMED Code(s): 505879743 Plan: 1. Patient is refusing blood draws. He is refusing care and wants to be discharged. Recommend mesalamine enemas daily at bedtime Case was discussed with Dr. Redman. We'll provide additional unit of blood this morning. CBC monitoring. Endoscopic intervention is not planned at this time but contingent on clinical course presently patient is refusing intervention. Thank you for this kind referral and the opportunity to participate in the care of your patient. This consultation was discussed with Dr. Soliz. The impression and plan of care have been directed as dictated.
[2017-10-14] MEDS ORDERED: LEVOTHYROXINE 100 MCG TAB PO SCH (06:30)
[2017-10-14] MEDS ORDERED: NON-FORMULARY DRUG (Umeclidinium Bromide [Incruse Ellipta] 1 PUFF) INHALATION SCH (08:00)
[2017-10-14] MEDS: IPRATROPIUM-ALBUTEROL 3 ML NEB INHALATION SCH ×2 (08:10→11:24)
[2017-10-14] MEDS: SYMBICORT 160-4.5 MCG INHALER INHALATION SCH (08:10)
[2017-10-14] MEDS: PANTOPRAZOLE 40 MG/10 ML VIAL IV SCH (08:25)
[2017-10-14 08:56] VITALS: RESP 18
[2017-10-14] MEDS ORDERED: FUROSEMIDE 40 MG TAB PO SCH (09:00)
[2017-10-14] MEDS ORDERED: SPIRONOLACTONE 25 MG TAB PO SCH (09:00)
[2017-10-14] MEDS ORDERED: metFORMIN 500 MG TAB PO SCH (09:00)
[2017-10-14] MEDS ORDERED: DIGOXIN 125 MCG TAB PO SCH (09:00)
[2017-10-14 11:39] VITALS: BP 96/54; PULSE 90; TEMP 97.5
--- NOTE | 2017-10-14 20:52 | DS ---
DISCHARGE SUMMARY DATE OF ADMISSION: 10/13/2017. DATE OF DISCHARGE: 10/14/2017 FINAL DIAGNOSES: 1. Acute blood-loss anemia as a combination from chronic gastrointestinal bleed and hematuria. 2. Chronic gastrointestinal bleed in a patient who has radiation proctitis. 3. 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 4. Diabetes mellitus, type 2, on oral hypoglycemic. 5. Chronic gait dysfunction. 6. Persistent atrial fibrillation; not a candidate for anticoagulation. 7. Chronic thoracic spine osteoarthritis. 8. 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 9. Gastroesophageal reflux disease. 10.Chronic obstructive pulmonary disease in a current smoker. 11.Moderate to severe mitral regurgitation, non-rheumatic. 12.Severe secondary pulmonary hypertension secondary to chronic obstructive pulmonary disease. 13.Severe tricuspid regurgitation, non-rheumatic. HOSPITAL COURSE: This patient presented with hemoglobin less than 7, was given 2 units of blood. Blood pressure has been running a bit on the lower side. Patient has a history of chronic GI bleed from radiation proctitis and has had argon plasma coagulation in the past. He was seen by GI, Dr. Soliz; not for any further intervention. The patient also has known hematuria from chronic cystitis; cannot really have any further intervention. He was seen by Dr. Guzman previously. Patient did receive 2 units of blood. Post- transfusion blood level was pending; more from reference section. On exam, lungs reveal decreased breath sounds. PSYCH: Alert and oriented x3. ABDOMEN: Soft, non-tender. DISCHARGE MEDICATIONS: 1. Symbicort 160/4.5 two puffs b.i.d. 2. Ventolin HFA 1-2 puffs q.i.d. 3. Digoxin 125 mcg p.o. daily. 4. Lopressor 25 p.o. t.i.d. 5. DuoNeb q.4 p.r.n. 6. Atrovent 2 puffs q.i.d. 7. Synthroid 100 mcg p.o. daily. 8. Incruse Ellipta 1 puff daily. 9. Glucotrol XL 2.5 p.o. daily. 10.Glucophage 1000 mg p.o. daily. 11.Rowasa 4-gram enema kit rectally at bedtime. 12.Lasix 40 mg a day. 13.Aldactone 50 mg p.o. daily. Follow up with Dr. Nedic in 3 days. CBC in 1 week. DISPOSITION: Assisted Living. Patient has [facility] at home. MMODL / IJN: [id number] /
== END 2017-10-14 15:30 | disposition home health service (06) | DRG 812 ==
LOC: EC 11:27 → 6SEL 13:55
PROVIDERS: ADMIT Hospitalist; ATTEND Hospitalist
PROC: 30233N1 Transfusion of Nonautologous Red Blood Cells into Peripheral Vein, Percutaneous Approach (ICD-10-PCS; principal; 2017-10-14)
DX: D62 Acute posthemorrhagic anemia (principal); I48.1 Persistent atrial fibrillation; K92.2 Gastrointestinal hemorrhage, unspecified; N30.41 Irradiation cystitis with hematuria; I27.29 Other secondary pulmonary hypertension; E11.9 Type 2 diabetes mellitus without complications; E89.0 Postprocedural hypothyroidism; F17.200 Nicotine dependence, unspecified, uncomplicated; I10 Essential (primary) hypertension; I34.0 Nonrheumatic mitral (valve) insufficiency; I48.2 Chronic atrial fibrillation; J44.9 Chronic obstructive pulmonary disease, unspecified; K21.9 Gastro-esophageal reflux disease without esophagitis; K57.90 Diverticulosis of intestine, part unspecified, without perforation or abscess without bleeding; M19.90 Unspecified osteoarthritis, unspecified site; M47.814 Spondylosis without myelopathy or radiculopathy, thoracic region; K62.7 Radiation proctitis; R26.9 Unspecified abnormalities of gait and mobility; I36.1 Nonrheumatic tricuspid (valve) insufficiency; Z87.01 Personal history of pneumonia (recurrent); Z79.51 Long term (current) use of inhaled steroids; Z79.84 Long term (current) use of oral hypoglycemic drugs; Z79.899 Other long term (current) drug therapy; Z88.6 Allergy status to analgesic agent; Z91.81 History of falling; Z87.11 Personal history of peptic ulcer disease; Z85.850 Personal history of malignant neoplasm of thyroid; Z85.828 Personal history of other malignant neoplasm of skin; Z85.46 Personal history of malignant neoplasm of prostate; Z90.49 Acquired absence of other specified parts of digestive tract; Z90.79 Acquired absence of other genital organ(s); Y84.2 Radiological procedure and radiotherapy as the cause of abnormal reaction of the patient, or of later complication, without mention of misadventure at the time of the procedure
CPT/HCPCS: 36415; 74022; 80053; 80320; 82272; 83735; 84484; 85025; 85610; 85730; 86850; 86900; 86901; 86920; 93005; 94640; 94760; 99285

== ENCOUNTER 2017-11-07 12:50 | Inpatient (IN) | payer MEDICARE, OTHER ==
--- NOTE | 2017-11-07 15:30 | ED ---
General Adult HPI - General Chief complaint: Recheck/Abnormal Lab/Rx Stated complaint: abnormal labs Time Seen by Provider: 11/07/17 15:09 Source: patient, RN notes reviewed, old records reviewed Mode of arrival: wheelchair Limitations: no limitations - History of Present Illness Initial comments: This is a 82 male to the ED co low Hgb, weakness, and positive GIB. PAtient has history of GIB, patient is on no blood thinners, he does feel weak and lightheaded. Multiple recent history of admission for anemia, transfusion, history of radiation proctitis, patient states he's having some blood from his penis 2. Some red in his urine. No pain. Patient again feels weak lightheaded and dizzy. - Related Data Home Medications Medication Instructions Recorded Confirmed Ipratropium [place] [Atrovent Hfa] 2 puff INHALATION RT-QID 09/16/17 10/13/17 Levothyroxine Sodium [Synthroid] 100 mcg PO DAILY 09/16/17 10/13/17 Umeclidinium [place] [Incruse 1 puff INHALATION RT-DAILY 09/16/17 10/13/17 Ellipta] glipiZIDE [Glucotrol XL] 2.5 mg PO DAILY 09/16/17 10/13/17 metFORMIN HCL [Glucophage] 1,000 mg PO DAILY 09/16/17 10/13/17 Furosemide [Lasix] 40 mg PO DAILY 10/13/17 10/13/17 Spironolactone 50 mg PO DAILY 10/13/17 10/13/17 Previous Rx's Medication Instructions Recorded Budesonide-Formot 160-4.5 Mcg 2 puff INHALATION RT-BID #1 inhaler 10/27/16 [Symbicort 160-4.5 Mcg Inhaler] Albuterol Inhaler [Ventolin Hfa 1 - 2 puff INHALATION RT-QID #0 01/13/17 Inhaler] Digoxin [Lanoxin] 125 mcg PO DAILY #30 tab 01/13/17 Metoprolol Tartrate [Lopressor] 25 mg PO TID #90 tab 01/13/17 Ipratropium-Albuterol Nebulize 3 ml INHALATION RT-Q4H PRN 08/20/17 [Duoneb 0.5 mg-3 mg/3 ml Soln] ampul.neb Mesalamine W/Cleansing Wipes 4 gm RECTAL HS #14 ml 09/20/17 [Rowasa 4 gm/60 ml Enema Kit] Allergies Allergy/AdvReac Type Severity Reaction Status Date / Time aspirin Allergy Rash/Hives Verified 11/07/17 14:41 Review of Systems ROS Statement: Those systems with pertinent positive or pertinent negative responses have been documented in the HPI. ROS Other: All systems not noted in ROS Statement are negative. Past Medical History Past Medical History: Atrial Fibrillation, Cancer, COPD, Diabetes Mellitus, GERD /Reflux, Hypertension, Liver Disease, Osteoarthritis (OA), Pneumonia, Prostate Disorder, Thyroid Disorder Additional Past Medical History / Comment(s): Other HX: skin cancers with removals, prostrate cancer with radiation, lower GI bleed thought secondary to radiation proctitis, diverticular disease, chronic anemia, duodenal ulcer, ETOH , history of ETOH withdrawal/delirium tremors, R leg weakness, history of falls , chronic lower extremity edema, arthritis thoracic spine. History of Any Multi-Drug Resistant Organisms: None Reported Past Surgical History: Bowel Resection Additional Past Surgical History / Comment(s): thyroidectomy, colonoscopy/ polypectomy, skin cancer removed, bilateral cataracts, bowel resection-d/t diverticulits Past Anesthesia/Blood Transfusion Reactions: No Reported Reaction Past Psychological History: No Psychological Hx Reported Smoking Status: Current every day smoker Past Alcohol Use History: Abuse, Daily Past Drug Use History: None Reported - Past Family History Father Family Medical History: Asthma, CVA/TIA Additional Family Medical History / Comment(s): pacemaker, smoker Mother Family Medical History: Chest Pain / Angina Additional Family Medical History / Comment(s): smoker General Exam Limitations: no limitations General appearance: alert, in no apparent distress Head exam: Present: atraumatic, normocephalic, normal inspection Eye exam: Present: normal appearance, PERRL, EOMI. Absent: scleral icterus, conjunctival injection, periorbital swelling ENT exam: Present: normal exam, mucous membranes moist Neck exam: Present: normal inspection. Absent: tenderness, meningismus, lymphadenopathy Respiratory exam: Present: normal lung sounds bilaterally. Absent: respiratory distress, wheezes, rales, rhonchi, stridor Cardiovascular Exam: Present: regular rate, normal rhythm, normal heart sounds. Absent: systolic murmur, diastolic murmur, rubs, gallop, clicks GI/Abdominal exam: Present: soft, normal bowel sounds. Absent: distended, tenderness, guarding, rebound, rigid Extremities exam: Present: normal inspection, full ROM, normal capillary refill. Absent: tenderness, pedal edema, joint swelling, calf tenderness Back exam: Present: normal inspection Neurological exam: Present: alert, oriented X3, CN II-XII intact Psychiatric exam: Present: normal affect, normal mood Skin exam: Present: warm, dry, intact, normal color. Absent: rash Course Vital Signs 11/07/17 11/07/17 11/07/17 14:39 15:35 15:42 Temperature 96.9 F L Pulse Rate 88 78 Pulse Rate [ 78 Platform Architect ] Respiratory 20 18 Rate Blood Pressure 120/56 112/73 O2 Sat by Pulse 100 100 Oximetry - Reevaluation(s) Reevaluation #1: 11/07/17 15:58 Patient states he does feel weak lightheaded Medical Decision Making - Medical Decision Making 82 male the ER, patient presents ER for evaluation of positive GI bleed, positive history of proctitis, denies blood thinners at this time, patient has he will been trending from 7.1-6.7, will admit for transfusion - Lab Data Result diagrams: 11/07/17 15:37 Lab Results 11/07/17 11/07/17 Range/Units 15:37 15:37 WBC 6.0 (3.8-10.6) k/uL RBC 2.51 L (4.30-5.90) m/uL Hgb 6.7 L* (13.0-17.5) gm/dL Hct 22.4 L (39.0-53.0) % MCV 89.1 (80.0-100.0) fL MCH 26.8 (25.0-35.0) pg MCHC 30.0 L (31.0-37.0) g/dL RDW 16.7 H (11.5-15.5) % Plt Count 387 (150-450) k/uL Neutrophils % 73 % Lymphocytes % 17 % Monocytes % 7 % Eosinophils % 1 % Basophils % 1 % Neutrophils # 4.4 (1.3-7.7) k/uL Lymphocytes # 1.0 (1.0-4.8) k/uL Monocytes # 0.4 (0-1.0) k/uL Eosinophils # 0.1 (0-0.7) k/uL Basophils # 0.0 (0-0.2) k/uL Hypochromasia Marked Poikilocytosis Slight Anisocytosis Slight PT 10.3 (9.0-12.0) sec INR 1.1 (<1.2) APTT 23.5 (22.0-30.0) sec Disposition Clinical Impression: GI (gastrointestinal bleed), Rectal bleeding, Lower GI bleed Disposition: ADMITTED IP TO THIS [facility] Condition: Fair Is patient prescribed a controlled substance at discharge?: No If prescribed controlled substance>3 days was MAPS reviewed?: No When asked, does pt state using other controlled substances?: No Referrals: Jesse Gee MD [Primary Care Provider] - 1-2 days
[2017-11-07 15:54] LABS: Anisocytosis Slight; Basophils % (A) 1 %; Eosinophils # (A) 0.1 k/uL (0-0.7); Eosinophils % (A) 1 %; HCT 22.4 % (39.0-53.0); Hypochromasia Marked; INR 1.1 (<1.2); Lymphocytes % (A) 17 %; MCH 26.8 pg (25.0-35.0); MCV 89.1 fL (80.0-100.0); Mean Platelet Volume 8.7; Monocytes # (A) 0.4 k/uL (0-1.0); Monocytes % (A) 7 %; Neutrophils # (A) 4.4 k/uL (1.3-7.7); Neutrophils % (A) 73 %; Partial Thromboplastin Time 23.5 sec (22.0-30.0); Platelet Count 387 k/uL (150-450); Poikilocytosis Slight; Prothrombin Time 10.3 sec (9.0-12.0); RBC 2.51 m/uL (4.30-5.90); RDW 16.7 % (11.5-15.5)
[2017-11-07 15:55] LABS: HGB 6.7 gm/dL (13.0-17.5)
[2017-11-07] MEDS ORDERED: SODIUM CHLORIDE 0.9% 1,000 ML IV ONE (15:56)
[2017-11-07 15:58] LABS: ALT 14 U/L (21-72); AST 18 U/L (17-59); Albumin 3.3 g/dL (3.5-5.0); Alkaline Phosphatase 99 U/L (38-126); Anion Gap 12 mmol/L; Blood Urea Nitrogen 17 mg/dL (9-20); Calcium 9.4 mg/dL (8.4-10.2); Carbon Dioxide 21 mmol/L (22-30); Chloride 103 mmol/L (98-107); Glucose 129 mg/dL (74-99); Potassium 5.4 mmol/L (3.5-5.1); Sodium 136 mmol/L (137-145); Total Bilirubin 0.3 mg/dL (0.2-1.3); Total Protein 6.6 g/dL (6.3-8.2)
[2017-11-07 16:01] LABS: Creatine Kinase 49 U/L (55-170)
[2017-11-07 16:14] LABS: Creatine Kinase MB 2.1 ng/mL (0.0-2.4); Troponin I <0.012 ng/mL (0.000-0.034)
[2017-11-07 17:11] LABS: Glucose,Whole Blood 121 mg/dL (75-99)
[2017-11-07] MEDS ORDERED: NALOXONE 0.4 MG/ML 1 ML VIAL IV PRN (18:20)
[2017-11-07] MEDS ORDERED: ALPRAZolam 0.25 MG TAB PO PRN (18:20)
[2017-11-07] MEDS ORDERED: ONDANSETRON 4 MG/2 ML VIAL IVP PRN (18:20)
[2017-11-07] MEDS ORDERED: MELATONIN 3 MG TABLET PO PRN (18:20)
[2017-11-07] MEDS ORDERED: CALCIUM CARBONATE 500 MG CHEWABLE PO PRN (18:20)
[2017-11-07 20:23] LABS: Glucose,Whole Blood 93 mg/dL (75-99)
[2017-11-07] MEDS: SYMBICORT 160-4.5 MCG INHALER INHALATION SCH (20:24)
[2017-11-07] MEDS: IPRATROPIUM 0.5 MG/2.5 ML NEBU INHALATION SCH (20:24)
[2017-11-07] MEDS: METOPROLOL TARTRATE 25 MG TAB PO SCH (22:01)
--- NOTE | 2017-11-07 23:25 | HP ---
HISTORY AND PHYSICAL DATE OF ADMISSION: November 07, 2017. PRESENTING COMPLAINT: Weak and tired. HISTORY OF PRESENTING COMPLAINT: This is an 82-year-old patient who follows with Dr. Gee. The patient lives at home with a lot of nursing support. Chronic stable medical conditions include: Diabetes, GERD, hypertension, hypothyroid, diverticulosis, COPD, osteoarthritis, atrial fibrillation, not a candidate for anticoagulation because of bleeding. The patient has known radiation proctitis with recurrent rectal bleeding and has had argon plasma coagulation done by Dr. Soliz in the past. Also had a bleeding vessel that was found and clipped a few weeks ago. The patient also got radiation cystitis. The patient has followed with Dr. Guzman and it is understandable that no further treatment can be done and patient does get hematuria intermittently. The patient presents feeling weak, tired, and persistent hematuria and on this occasion in the ER, found to have a hemoglobin down to 6.7. Because patient being symptomatic, blood was ordered from the ER. The patient does feel weak, tired, run down. REVIEW OF SYSTEMS: Constitutional: Tired. HEENT none. Respiratory: Baseline short of breath. Cardiovascular none. Gastrointestinal: Currently no bleeding. Genitourinary as above. Musculoskeletal none. Dermatological and hematologic, lymphatic none. Psychiatry: Patient is forgetful. Neurological none. PAST MEDICAL HISTORY: Of recurrent gastrointestinal bleed from radiation proctitis, hematuria from radiation cystitis, essential hypertension, diabetes mellitus type 2, gait dysfunction, persistent atrial fibrillation not a candidate for anticoagulation, chronic thoracic spine osteoarthritis, hypothyroidism, GERD, COPD, moderate to severe mitral regurgitation, severe secondary pulmonary hypertension. Severe tricuspid regurgitation, thyroid cancer with thyroidectomy. Duodenal ulcer. PAST SURGICAL HISTORY: Bowel resection, thyroidectomy, skin cancer removal, bilateral cataract surgery, bowel resection for diverticulitis. HOME MEDICATIONS: 1. Glucophage 1000 mg p.o. daily. 2. Glucotrol XL 2.5 p.o. daily. 3. Encrus Ellipta 1 puff daily. 4. Aldactone 25 mg p.o. daily. 5. Aldactone 50 mg p.o. daily. 6. Lopressor 25 p.o. t.i.d. 7. Synthroid 100 mcg p.o. daily. 8. DuoNeb q.4h p.r.n. 9. Atrovent HFA 2 puffs q.i.d. 10.Lasix 40 mg p.o. daily. 11.Digoxin 125 mcg daily. 12.Symbicort 160/4.5, 2 puffs b.i.d. 13.Ventolin HFA 1 or 2 puffs q.i.d. ALLERGIES: ASPIRIN. PHYSICAL EXAMINATION: Temperature 97.6, pulse 87, respiratory 18, blood pressure 100/55, pulse ox 100%. General appearance: Average build, lying in bed, awake, tired-appearing, eyes pupils equal, conjunctivae pale. HEENT: External appearance of nose and ears normal. Oral cavity normal. Decreased hearing. Neck JVD not raised. Mass not palpable. Respiratory effort normal. LUNGS: Diminished breath sounds. Cardiovascular heart sounds irregular. No edema. ABDOMEN: Soft, nontender. Liver and spleen not palpable. Lymphatics: No lymph nodes palpable in neck or axillae. Psychiatry: Awake, answering simple questions. Mood and affect normal. Neurological: Pupils equal. Cranial nerves grossly intact. Power and sensation grossly intact. INVESTIGATIONS: White count 6, hemoglobin 6.7, platelets 287, potassium 5.4, BUN 17, creatinine 0.70. ASSESSMENT: 1. Acute symptomatic anemia from persistent hematuria. 2. History of radiation proctitis with recurrent blood loss. 3. 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 4. Essential hypertension. 5. Diabetes mellitus type 2 on oral hypoglycemics. 6. Chronic gait dysfunction. 7. Persistent atrial fibrillation not a candidate for anticoagulation. 8. Chronic thoracic spine osteoarthritis. 9. 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 10.Gastroesophageal reflux disease. 11.Chronic obstructive pulmonary disease in a smoker. 12.Moderate to severe mitral regurgitation, nonrheumatic. 13.Severe secondary pulmonary hypertension secondary to chronic obstructive pulmonary disease. 14.Severe tricuspid regurgitation, nonrheumatic. PLAN: The patient has ordered blood from the ER. Home medications are resumed. As known before patient has not too many options. We will check a hemoglobin in the morning. Given patient's hyperkalemia, will hold off the Aldactone for right now. Keep the patient on Lasix and repeat labs in the morning. Follow Accu-Cheks. Care was discussed with the patient. Copy to Dr. Gee. MMODL / SKYEN: [id number] /
[2017-11-08 06:05] LABS: Glucose,Whole Blood 90 mg/dL (75-99)
[2017-11-08 06:12] LABS: Basophils % (A) 1 %; Eosinophils # (A) 0.1 k/uL (0-0.7); Eosinophils % (A) 2 %; HCT 25.2 % (39.0-53.0); HGB 7.9 gm/dL (13.0-17.5); Hypochromasia Marked; Lymphocytes # (A) 0.8 k/uL (1.0-4.8); Lymphocytes % (A) 13 %; MCH 28.3 pg (25.0-35.0); MCHC 31.5 g/dL (31.0-37.0); MCV 89.8 fL (80.0-100.0); Mean Platelet Volume 7.5; Monocytes # (A) 0.5 k/uL (0-1.0); Monocytes % (A) 8 %; Neutrophils # (A) 4.4 k/uL (1.3-7.7); Neutrophils % (A) 74 %; Platelet Count 369 k/uL (150-450); Poikilocytosis Marked; RBC 2.81 m/uL (4.30-5.90); RDW 15.9 % (11.5-15.5); WBC 5.9 k/uL (3.8-10.6)
[2017-11-08 06:31] LABS: Anion Gap 12 mmol/L; Blood Urea Nitrogen 17 mg/dL (9-20); Calcium 8.7 mg/dL (8.4-10.2); Carbon Dioxide 20 mmol/L (22-30); Chloride 104 mmol/L (98-107); Glucose 80 mg/dL (74-99); Potassium 4.8 mmol/L (3.5-5.1); Sodium 136 mmol/L (137-145)
[2017-11-08] MEDS: LEVOTHYROXINE 100 MCG TAB PO SCH (07:04)
[2017-11-08] MEDS: IPRATROPIUM 0.5 MG/2.5 ML NEBU INHALATION SCH ×4 (07:42→20:13)
[2017-11-08] MEDS: SYMBICORT 160-4.5 MCG INHALER INHALATION SCH ×2 (07:43→20:13)
[2017-11-08] MEDS ORDERED: NON-FORMULARY DRUG (Spironolactone [Spironolactone] 50 MG) PO SCH (09:00)
[2017-11-08] MEDS ORDERED: SPIRONOLACTONE 25 MG TAB PO SCH (09:00)
[2017-11-08] MEDS: DIGOXIN 125 MCG TAB PO SCH (09:59)
[2017-11-08] MEDS: FUROSEMIDE 40 MG TAB PO SCH (09:59)
[2017-11-08] MEDS: metFORMIN 500 MG TAB PO SCH (10:00)
[2017-11-08] MEDS: METOPROLOL TARTRATE 25 MG TAB PO SCH ×3 (10:01→21:14)
[2017-11-08 11:47] LABS: Glucose,Whole Blood 88 mg/dL (75-99)
--- NOTE | 2017-11-08 15:26 | P.GSCN ---
History of Present Illness Consult date: 11/08/17 History of present illness: The patient is an 82-year-old gentleman who was admitted the hospital gastrointestinal bleed, anemia with weakness as well as gross hematuria. Dr.Kamer ferrer see the patient for the gross hematuria. The patient is well known to Dr. Guzman for prostate cancer and irradiation cysto prostatitis. Patient has been having gross hematuria for the last few weeks. He was seen by Dr. Guzman and was going to have cystoscopy but ended up in the hospital. The patient really did not wish to speak with me however he did answer few questions. The patient is passing some blood clots. He is not having difficulty urination. There is no pain. States that he is not passing blood per stool but apparently he has. 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 History of Any Multi-Drug Resistant Organisms: None Reported Past Surgical History: Bowel Resection Additional Past Surgical History / Comment(s): thyroidectomy, colonoscopy/ polypectomy, skin cancer removed, bilateral cataracts, bowel resection-d/t diverticulits, sigmoidoscopy Past Anesthesia/Blood Transfusion Reactions: No Reported Reaction Additional Past Anesthesia/Blood Transfusion Reaction / Comm: has ahd blood transfusions-no reaction Smoking Status: Current every day smoker - Past Family History Father Family Medical History: Asthma, CVA/TIA Additional Family Medical History / Comment(s): pacemaker, smoker Mother Family Medical History: Chest Pain / Angina Additional Family Medical History / Comment(s): smoker Medications and Allergies Home Medications Medication Instructions Recorded Confirmed Type Budesonide-Formot 160-4.5 Mcg 2 puff INHALATION RT-BID #1 inhaler 10/27/1611/07 Rx [Symbicort 160-4.5 Mcg Inhaler] Albuterol Inhaler [Ventolin Hfa 1 - 2 puff INHALATION RT-QID #0 01/13/17 Rx Inhaler] Digoxin [Lanoxin] 125 mcg PO DAILY #30 tab 01/13/17 11/07/17 Rx Metoprolol Tartrate [Lopressor] 25 mg PO TID #90 tab 01/13/17 11/07/17 Rx Ipratropium-Albuterol Nebulize 3 ml INHALATION RT-Q4H PRN 08/20/17 11/07/17 Rx [Duoneb 0.5 mg-3 mg/3 ml Soln] ampul.neb Ipratropium [place] [Atrovent Hfa] 2 puff INHALATION RT-QID 09/16/17 11/07/17 History Levothyroxine Sodium [Synthroid] 100 mcg PO DAILY 09/16/17 11/07/17 History Umeclidinium [place] [Incruse 1 puff INHALATION RT-DAILY 09/16/17 11/07/17 History Ellipta] glipiZIDE [Glucotrol XL] 2.5 mg PO DAILY 09/16/17 11/07/17 History metFORMIN HCL [Glucophage] 1,000 mg PO DAILY 09/16/17 11/07/17 History Furosemide [Lasix] 40 mg PO DAILY 10/13/17 11/07/17 History Spironolactone 50 mg PO DAILY 10/13/17 11/07/17 History Spironolactone [Aldactone] 25 mg PO DAILY 11/07/17 11/07/17 History Allergies Allergy/AdvReac Type Severity Reaction Status Date / Time aspirin Allergy Rash/Hives Verified 11/07/17 14:41 Surgical - Exam Vital Signs Temp Pulse Resp BP Pulse Ox 96.9 F L 88 20 120/56 100 11/07/17 14:39 11/07/17 14:39 11/07/17 14:39 11/07/17 14:39 11/07/17 14:39 The patient declined - General well developed, no distress - Psychiatric Angry and anxious Results - Labs 11/08/17 05:52 11/08/17 05:52 Abnormal Lab Results - Last 24 Hours (Table) 11/07/17 11/07/17 11/07/17 Range/Units 15:37 15:37 15:37 RBC 2.51 L (4.30-5.90) m/uL Hgb 6.7 L* (13.0-17.5) gm/dL Hct 22.4 L (39.0-53.0) % MCHC 30.0 L (31.0-37.0) g/dL RDW 16.7 H (11.5-15.5) % Lymphocytes # (1.0-4.8) k/uL Sodium 136 L (137-145) mmol/L Potassium 5.4 H (3.5-5.1) mmol/L Carbon Dioxide 21 L (22-30) mmol/L Glucose 129 H (74-99) mg/dL POC Glucose (mg/dL) (75-99) mg/dL ALT 14 L (21-72) U/L Total Creatine Kinase 49 L (55-170) U/L Albumin 3.3 L (3.5-5.0) g/dL Crossmatch 11/07/17 11/07/17 11/08/17 Range/Units 15:37 17:10 05:52 RBC 2.81 L (4.30-5.90) m/uL Hgb 7.9 L (13.0-17.5) gm/dL Hct 25.2 L (39.0-53.0) % MCHC (31.0-37.0) g/dL RDW 15.9 H (11.5-15.5) % Lymphocytes # 0.8 L (1.0-4.8) k/uL Sodium (137-145) mmol/L Potassium (3.5-5.1) mmol/L Carbon Dioxide (22-30) mmol/L Glucose (74-99) mg/dL POC Glucose (mg/dL) 121 H (75-99) mg/dL ALT (21-72) U/L Total Creatine Kinase (55-170) U/L Albumin (3.5-5.0) g/dL Crossmatch See Detail 11/08/17 Range/Units 05:52 RBC (4.30-5.90) m/uL Hgb (13.0-17.5) gm/dL Hct (39.0-53.0) % MCHC (31.0-37.0) g/dL RDW (11.5-15.5) % Lymphocytes # (1.0-4.8) k/uL Sodium 136 L (137-145) mmol/L Potassium (3.5-5.1) mmol/L Carbon Dioxide 20 L (22-30) mmol/L Glucose (74-99) mg/dL POC Glucose (mg/dL) (75-99) mg/dL ALT (21-72) U/L Total Creatine Kinase (55-170) U/L Albumin (3.5-5.0) g/dL Crossmatch Diabetes panel 11/07/17 11/08/17 Range/Units 15:37 05:52 Sodium 136 L 136 L (137-145) mmol/L Potassium 5.4 H 4.8 (3.5-5.1) mmol/L Chloride 103 104 (98-107) mmol/L Carbon Dioxide 21 L 20 L (22-30) mmol/L BUN 17 17 (9-20) mg/dL Creatinine 0.70 0.70 (0.66-1.25) mg/dL Glucose 129 H 80 (74-99) mg/dL Calcium 9.4 8.7 (8.4-10.2) mg/dL AST 18 (17-59) U/L ALT 14 L (21-72) U/L Alkaline Phosphatase 99 (38-126) U/L Total Protein 6.6 (6.3-8.2) g/dL Albumin 3.3 L (3.5-5.0) g/dL Calcium panel 11/07/17 11/08/17 Range/Units 15:37 05:52 Calcium 9.4 8.7 (8.4-10.2) mg/dL Albumin 3.3 L (3.5-5.0) g/dL Pituitary panel 11/07/17 11/08/17 Range/Units 15:37 05:52 Sodium 136 L 136 L (137-145) mmol/L Potassium 5.4 H 4.8 (3.5-5.1) mmol/L Chloride 103 104 (98-107) mmol/L Carbon Dioxide 21 L 20 L (22-30) mmol/L BUN 17 17 (9-20) mg/dL Creatinine 0.70 0.70 (0.66-1.25) mg/dL Glucose 129 H 80 (74-99) mg/dL Calcium 9.4 8.7 (8.4-10.2) mg/dL Adrenal panel 11/07/17 11/08/17 Range/Units 15:37 05:52 Sodium 136 L 136 L (137-145) mmol/L Potassium 5.4 H 4.8 (3.5-5.1) mmol/L Chloride 103 104 (98-107) mmol/L Carbon Dioxide 21 L 20 L (22-30) mmol/L BUN 17 17 (9-20) mg/dL Creatinine 0.70 0.70 (0.66-1.25) mg/dL Glucose 129 H 80 (74-99) mg/dL Calcium 9.4 8.7 (8.4-10.2) mg/dL Total Bilirubin 0.3 (0.2-1.3) mg/dL AST 18 (17-59) U/L ALT 14 L (21-72) U/L Alkaline Phosphatase 99 (38-126) U/L Total Protein 6.6 (6.3-8.2) g/dL Albumin 3.3 L (3.5-5.0) g/dL Assessment and Plan Assessment: Impression: 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 Gastrointestinal bleeding. Anemia secondary to the above Recommendations: The patient will need cystoscopy at some point in time. His hemoglobin did go from 6-7.9 with 2 transfusions. The patient would like to leave the hospital and that will be decided between the patient and the admitting physician. I will notify of this consult.
[2017-11-08 16:50] LABS: Glucose,Whole Blood 95 mg/dL (75-99)
--- NOTE | 2017-11-08 19:17 | PN ---
PROGRESS NOTE DATE OF SERVICE: 11/08/2017 PRESENTING COMPLAINT: Hematuria. INTERVAL HISTORY: This patient with known radiation proctitis and radiation cystitis with gross hematuria and severe anemia. The patient did get 2 units of blood. Still having some hematuria. The patient was waiting to be seen by Dr. Guzman when I saw this patient earlier today. The patient was to go back to his place, knowing that this bleeding probably is going to continue, he says. REVIEW OF SYSTEMS: Done for constitutional, cardiovascular, GI, pulmonary, genitourinary; relevant findings as above. CURRENT MEDICATIONS: Reviewed. EXAMINATION: Temperature 96.8, pulse 73, respirations 16 blood pressure 114/62, pulse ox 97% on room air. GENERAL APPEARANCE: Sitting in bed, comfortable. EYES: Pupils equal. Conjunctivae normal. HEENT: External ears and nose normal. Oral cavity normal. Decreased hearing. NECK: JVD not raised. Mass not palpable. RESPIRATORY: Effort normal. LUNGS: Decreased breath sounds. CARDIOVASCULAR: Heart is irregular. No edema. ABDOMEN: Soft, nontender. Liver and spleen not palpable. PSYCHIATRY: Awake, answering questions. INVESTIGATIONS: White count 5.9, hemoglobin 7.9. ASSESSMENT: 1. Acute symptomatic anemia from persistent gross hematuria from underlying radiation cystitis. 2. Radiation proctitis with intermittent gastrointestinal bleed. 3. Essential hypertension. 4. Diabetes mellitus type 2 on oral hypoglycemic. 5. Chronic gait dysfunction. 6. Persistent atrial fibrillation, not a candidate for anticoagulation because of bleeding. 7. Chronic thoracic spine osteoarthritis. 8. 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 9. Gastroesophageal reflux disease. 10.Chronic obstructive pulmonary disease in a smoker. 11.Moderate to severe mitral regurgitation, nonrheumatic. 12.Severe secondary pulmonary hypertension secondary to chronic obstructive pulmonary disease. 13.Severe tricuspid regurgitation, nonrheumatic. PLAN: Patient is status post 2 units of blood. Repeat hemoglobin in the morning. If there is no drastic drop, then patient will be discharged. Care was discussed with the patient. MMODL / IJN: [id number] /
[2017-11-08 21:24] LABS: Glucose,Whole Blood 98 mg/dL (75-99)
[2017-11-09 05:20] LABS: Anion Gap 11 mmol/L; Blood Urea Nitrogen 17 mg/dL (9-20); Calcium 8.9 mg/dL (8.4-10.2); Carbon Dioxide 24 mmol/L (22-30); Chloride 103 mmol/L (98-107); Glucose 85 mg/dL (74-99); Potassium 4.2 mmol/L (3.5-5.1); Sodium 138 mmol/L (137-145)
[2017-11-09 05:40] LABS: Anisocytosis Slight; Basophils % (A) 1 %; Eosinophils # (A) 0.1 k/uL (0-0.7); Eosinophils % (A) 2 %; HCT 25.3 % (39.0-53.0); HGB 7.8 gm/dL (13.0-17.5); Hypochromasia Marked; Lymphocytes # (A) 0.7 k/uL (1.0-4.8); Lymphocytes % (A) 14 %; MCH 27.6 pg (25.0-35.0); MCV 89.1 fL (80.0-100.0); Mean Platelet Volume 7.9; Monocytes # (A) 0.3 k/uL (0-1.0); Monocytes % (A) 6 %; Neutrophils # (A) 3.9 k/uL (1.3-7.7); Neutrophils % (A) 75 %; Platelet Count 369 k/uL (150-450); Poikilocytosis Marked; RBC 2.84 m/uL (4.30-5.90); WBC 5.2 k/uL (3.8-10.6)
[2017-11-09 06:01] LABS: Glucose,Whole Blood 179 mg/dL (75-99)
[2017-11-09] MEDS: LEVOTHYROXINE 100 MCG TAB PO SCH (06:50)
[2017-11-09] MEDS: SYMBICORT 160-4.5 MCG INHALER INHALATION SCH ×2 (07:33→20:34)
[2017-11-09] MEDS: IPRATROPIUM-ALBUTEROL 3 ML NEB INHALATION PRN (07:33)
[2017-11-09] MEDS: IPRATROPIUM 0.5 MG/2.5 ML NEBU INHALATION SCH ×4 (07:36→20:34)
[2017-11-09] MEDS: DIGOXIN 125 MCG TAB PO SCH (09:22)
[2017-11-09] MEDS: METOPROLOL TARTRATE 25 MG TAB PO SCH ×3 (09:22→22:55)
[2017-11-09] MEDS: metFORMIN 500 MG TAB PO SCH (09:23)
[2017-11-09] MEDS: FUROSEMIDE 40 MG TAB PO SCH (09:23)
--- NOTE | 2017-11-09 10:52 | P.PN ---
Progress Note - Text Progress Note Date: 11/09/17 The patient is hemodynamically stable but continues to pass grossly bloody urine with clots. His hemoglobin is stable at 7.8. His bleeding is most likely related to irradiation cystoscopy prostatitis but in view of the chronic blood loss I believe that cystoscopy under anesthesia with cautery would be reasonable at this time. I discussed this with the patient and the procedure will be performed later this afternoon.
[2017-11-09 11:45] LABS: Glucose,Whole Blood 87 mg/dL (75-99)
[2017-11-09] MEDS ORDERED: IV FLUID CONTINUATION 1,000 ML IV ONE (14:40)
[2017-11-09] MEDS ORDERED: ONDANSETRON 4 MG/2 ML VIAL IVP ONE ×2 (14:45→16:52)
[2017-11-09] MEDS ORDERED: LIDOCAINE 1% INJ 10MG/ML (20 ML MDV) ONE (16:37)
[2017-11-09] MEDS ORDERED: ePHEDrine SULFATE/0.9% NACL/PF 50 MG/5 ML SYRINGE IV ONE (16:37)
[2017-11-09] MEDS ORDERED: PROPOFOL 10 MG/ML 20 ML VIAL IV ONE (16:37)
[2017-11-09] MEDS ORDERED: PHENYLEPHRINE-0.9% NACL SYG 1 MG/10 ML SYRINGE ONE (16:37)
--- NOTE | 2017-11-09 17:10 | P.OP ---
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 He has had problems over the last several weeks with rectal bleeding from irradiation proctitis and gross hematuria. He was admitted again with anemia and received 2 units of packed red blood cells. He continues to have gross hematuria with the passage of clots. Cystoscopy under anesthesia is planned for further evaluation. Description of Procedure: The patient was taken the operating suite where adequate general anesthesia via LMA was instituted. The patient was placed in the dorsal lithotomy position with his legs suspended from padded Desean stirrups. Sequential pneumatic compression stockings were applied to the lower legs. The genitalia was prepped with Betadine soap, painted with Betadine solution and draped in a sterile fashion. The 22-German cystoscope sheath with 30 lens was passed through the urethra under direct vision. The anterior urethra was free of inflammatory lesion, tumor and stricture. The prostatic urethra showed evidence of a previous TURP. The prostatic fossa and bladder neck appeared wide open. Ectatic vessels were noted near the apex of the prostate and on the right side several small blood vessels were actively bleeding. The bladder was examined. A small clot was noted on the floor of the bladder and was irrigated from the bladder through the cystoscope. Both ureteral orifices were of normal location and configuration and effluxed clear urine. A [place] diverticulum was noted on the right bladder wall. The interior of the diverticulum was examined and was unremarkable. The remainder the bladder was free of inflammatory lesion, tumor and foreign body. Using the Bugbee electrode the active bleeding present within the prostatic fossa was cauterized and at the completion of the procedure hemostasis appeared excellent. The bladder was drained and the cystoscope was withdrawn. The patient tolerated the procedure well and left the operating room room awake and in satisfactory condition. Blood loss was less than 2 mL.
[2017-11-09 21:13] LABS: Anisocytosis Slight; HCT 25.4 % (39.0-53.0); HGB 7.7 gm/dL (13.0-17.5); Hypochromasia Marked; MCH 27.4 pg (25.0-35.0); MCHC 30.5 g/dL (31.0-37.0); MCV 89.8 fL (80.0-100.0); Mean Platelet Volume 7.9; Platelet Count 323 k/uL (150-450); Poikilocytosis Moderate; RBC 2.83 m/uL (4.30-5.90); RDW 16.6 % (11.5-15.5)
[2017-11-09 21:19] LABS: Glucose,Whole Blood 185 mg/dL (75-99)
--- NOTE | 2017-11-09 23:06 | PN ---
PROGRESS NOTE DATE OF SERVICE: 11/09/2017. PRESENTING COMPLAINT: Hematuria. INTERVAL HISTORY: This patient presented with radiation proctitis and radiation cystitis, presented with gross hematuria and anemia, had to be transfused blood. When I saw the patient earlier today he was pending to go down for cauterization. Otherwise comfortable. Continues to have hematuria. REVIEW OF SYSTEMS: Done for constitutional, cardiovascular, GI, pulmonary, genitourinary; relevant findings as above. CURRENT MEDICATIONS: Reviewed. EXAMINATION: Temperature 97.5, pulse 100, respirations 18, blood pressure 104/53, pulse ox 98% on room air. GENERAL APPEARANCE: Lying in bed comfortable. EYES: Pupils equal. Conjunctivae pale. HEENT: External nose and ears normal. Oral cavity normal. Decreased hearing. NECK: JVD not raised. Mass not palpable, normal respiratory effort. LUNGS: Decreased breath sounds. CARDIOVASCULAR: Heart sounds are regular. No edema. ABDOMEN: Soft, nontender. Liver and spleen not palpable. PSYCHIATRY: Alert and oriented x3. Mood and affect normal. INVESTIGATIONS: Hemoglobin 7.8. ASSESSMENT: 1. Acute anemia from persistent gross hematuria from underlying radiation cystitis. 2. Radiation proctitis with intermittent GI bleed. 3. Essential hypertension. 4. Diabetes mellitus type 2, on oral hypoglycemic. 5. Chronic gait dysfunction. 6. Persistent atrial fibrillation, not a candidate for anticoagulation. 7. Chronic thoracic spine osteoarthritis. 8. 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 9. Gastroesophageal reflux disease. 10.Chronic obstructive pulmonary disease in a smoker. 11.Moderate to severe mitral regurgitation, nonrheumatic. 12.Severe secondary pulmonary hypertension secondary to chronic obstructive pulmonary disease. 13.Severe tricuspid regurgitation, nonrheumatic. PLAN: Later in the day the patient went down to the OR. The patient did have cauterization of the cysto prostatitis site. The bleeding all stopped per Dr. Guzman's note. The patient is status post 2 units of blood when he presented. We will check hemoglobin this evening. MMODL / IJN: [id number] /
[2017-11-10] MEDS: LEVOTHYROXINE 100 MCG TAB PO SCH (05:40)
[2017-11-10 07:03] LABS: Glucose,Whole Blood 153 mg/dL (75-99)
[2017-11-10 07:24] LABS: Anion Gap 10 mmol/L; Blood Urea Nitrogen 16 mg/dL (9-20); Calcium 8.8 mg/dL (8.4-10.2); Carbon Dioxide 25 mmol/L (22-30); Chloride 102 mmol/L (98-107); Glucose 121 mg/dL (74-99); Potassium 4.3 mmol/L (3.5-5.1); Sodium 137 mmol/L (137-145)
[2017-11-10 07:38] VITALS: BP 112/73; RESP 14; TEMP 98
[2017-11-10] MEDS: IPRATROPIUM-ALBUTEROL 3 ML NEB INHALATION PRN (08:50)
[2017-11-10] MEDS: IPRATROPIUM 0.5 MG/2.5 ML NEBU INHALATION SCH ×2 (08:50→12:35)
[2017-11-10] MEDS: SYMBICORT 160-4.5 MCG INHALER INHALATION SCH (08:50)
[2017-11-10 08:52] VITALS: PULSE 88
[2017-11-10] MEDS: METOPROLOL TARTRATE 25 MG TAB PO SCH (08:52)
[2017-11-10] MEDS: DIGOXIN 125 MCG TAB PO SCH (08:52)
[2017-11-10] MEDS: metFORMIN 500 MG TAB PO SCH (08:52)
[2017-11-10] MEDS: FUROSEMIDE 40 MG TAB PO SCH (08:52)
[2017-11-10 10:20] LABS: Anisocytosis Slight; Basophils % (A) 0 %; Eosinophils # (A) 0.1 k/uL (0-0.7); Eosinophils % (A) 2 %; HCT 24.6 % (39.0-53.0); HGB 7.4 gm/dL (13.0-17.5); Hypochromasia Marked; Lymphocytes # (A) 0.7 k/uL (1.0-4.8); Lymphocytes % (A) 12 %; MCH 27.4 pg (25.0-35.0); MCHC 30.3 g/dL (31.0-37.0); MCV 90.3 fL (80.0-100.0); Mean Platelet Volume 8.4; Monocytes # (A) 0.4 k/uL (0-1.0); Monocytes % (A) 8 %; Neutrophils # (A) 4.2 k/uL (1.3-7.7); Neutrophils % (A) 77 %; Platelet Count 338 k/uL (150-450); Poikilocytosis Moderate; RBC 2.72 m/uL (4.30-5.90); RDW 16.6 % (11.5-15.5); WBC 5.5 k/uL (3.8-10.6)
[2017-11-10 11:47] LABS: Glucose,Whole Blood 167 mg/dL (75-99)
--- NOTE | 2017-11-11 17:32 | CDI ---
Last Revision, June 2017 Documentation Clarification Form Date: 11/11/2017 12:00:00 AM From: CORRY Lua; Kateryna Mcneal [employer] Assistant Manager Phone: If you have a question about this query, please contact Kateryna Mcneal [employer] Assistant Manager at [phone] between 8am and 5pm. Admit Date: 11/07/2017 3:56:00 PM Patient Name: Jose Chakraborty Visit Number: [id number] Discharge Date: 11/10/2017 ATTENTION: The Clinical Documentation Specialists (CDI) and [facility] Coding Staff appreciate your assistance in clarifying documentation. Please respond to the clarification below the line at the bottom and electronically sign. The CDI & [facility] Coding staff will review the response and follow-up if needed. Please note: Queries are made part of the Legal Health Record. If you have any questions, please contact the author of this message via ITS. Dr. Ramez Redman A diagnosis of anemia lacks specificity to accurately reflect your patients severity of condition and clarification is needed. History/Risk Factors: Irradiation cystitis w/hematura Clinical indicators: Persistent hematura, weakness, tired. Hemoglobin: 6.7 Hematocrit: 22.4 Treatment: Two units of PRBCs transfused and monitoring labs. In order to capture the severity of condition, please clarify the type of anemia and etiology if known: Acute blood loss anemia Acute on chronic blood loss anemia Chronic blood loss anemia Iron deficiency anemia Anemia due to malignancy Unable to determine Other, please specify ___acute blood loss anemia secondary to hematuria MTDD
--- NOTE | 2017-11-11 21:59 | DS ---
DISCHARGE SUMMARY DATE OF ADMISSION: November 07, 2017. DATE OF DISCHARGE: November 10, 2017. FINAL DIAGNOSES: 1. Acute severe blood loss anemia from gross hematuria from underlying radiation cystitis. 2. Radiation proctitis with intermittent gastrointestinal bleed. 3. Essential hypertension. 4. Diabetes mellitus type 2 on oral hypoglycemic. 5. Chronic gait dysfunction. 6. Persistent atrial fibrillation not a candidate for anticoagulation. 7. Chronic thoracic spine osteoarthritis. 8. 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 9. Gastroesophageal reflux disease. 10.Chronic obstructive pulmonary disease in a smoker. 11.Moderate to severe mitral regurgitation, nonrheumatic. 12.Severe secondary pulmonary hypertension secondary to chronic obstructive pulmonary disease. 13.Severe tricuspid regurgitation nonrheumatic. DESIGN LEAD: Dr. Guzman from Urology. PROCEDURE: Cauterization of the bladder neck for the bleeder. HOSPITAL COURSE: This patient has got a known hematuria from prostocystitis. Dr. Guzman did go inside and did cauterize the area. The patient's hemoglobin was 6.7 on admission, was 7.4 on discharge. Did receive 2 units of blood. The patient's hematuria completely resolved. EXAM: Lungs decreased breath sounds. Cardiovascular 1st and second sounds normal. DISCHARGE MEDICATIONS: 1. Symbicort 160/4.5, 2 puffs b.i.d. 2. Ventolin HFA 1-2 puffs q.i.d. 3. Digoxin 125 mcg a day. 4. Lopressor 25 mg p.o. b.i.d. 5. DuoNeb q.4h p.r.n. 6. Atrovent HFA 2 puffs q.i.d. 7. Synthroid 100 mcg p.o. daily. 8. Incruse Ellipta 1 puff daily. 9. Glucotrol XL 2.5 p.o. daily. 10.Glucophage 1000 mg p.o. daily. 11.Lasix 40 mg p.o. daily. 12.Aldactone 25 mg p.o. daily. FOLLOWUP: Follow up with Dr. Gee in 1 week. Follow up with TORITO Lawler in 3 days. Care was discussed with the patient. MMODL / IJN: [id number] /
== END 2017-11-10 14:20 | disposition home health service (06) | DRG 663 ==
LOC: EC 12:50 → 6SEL 15:56 → 3SUR 11-09 23:03
PROVIDERS: ADMIT Hospitalist; ATTEND Hospitalist
PROC: 30233N1 Transfusion of Nonautologous Red Blood Cells into Peripheral Vein, Percutaneous Approach (ICD-10-PCS; 2017-11-07)
PROC: 0W3R8ZZ Control Bleeding in Genitourinary Tract, Via Natural or Artificial Opening Endoscopic (ICD-10-PCS; principal; 2017-11-09 13:20)
DX: N30.41 Irradiation cystitis with hematuria (principal); I48.1 Persistent atrial fibrillation; E87.5 Hyperkalemia; D62 Acute posthemorrhagic anemia; I27.23 Pulmonary hypertension due to lung diseases and hypoxia; I36.1 Nonrheumatic tricuspid (valve) insufficiency; E11.9 Type 2 diabetes mellitus without complications; E89.0 Postprocedural hypothyroidism; I10 Essential (primary) hypertension; F17.210 Nicotine dependence, cigarettes, uncomplicated; I34.0 Nonrheumatic mitral (valve) insufficiency; J44.9 Chronic obstructive pulmonary disease, unspecified; K21.9 Gastro-esophageal reflux disease without esophagitis; K57.90 Diverticulosis of intestine, part unspecified, without perforation or abscess without bleeding; K62.7 Radiation proctitis; M19.90 Unspecified osteoarthritis, unspecified site; M47.814 Spondylosis without myelopathy or radiculopathy, thoracic region; Z85.46 Personal history of malignant neoplasm of prostate; Z79.84 Long term (current) use of oral hypoglycemic drugs; Z79.51 Long term (current) use of inhaled steroids; Z79.899 Other long term (current) drug therapy; Z82.5 Family history of asthma and other chronic lower respiratory diseases; Z85.828 Personal history of other malignant neoplasm of skin; Z85.850 Personal history of malignant neoplasm of thyroid; Z87.11 Personal history of peptic ulcer disease; Z91.81 History of falling; Z92.3 Personal history of irradiation; Z88.6 Allergy status to analgesic agent; Z98.42 Cataract extraction status, left eye; Z98.41 Cataract extraction status, right eye; Z90.49 Acquired absence of other specified parts of digestive tract; Z79.890 Hormone replacement therapy; Y84.2 Radiological procedure and radiotherapy as the cause of abnormal reaction of the patient, or of later complication, without mention of misadventure at the time of the procedure
CPT/HCPCS: 36415; 80048; 80053; 82272; 82550; 82553; 84484; 85025; 85027; 85610; 85730; 86850; 86900; 86901; 86920; 94640; 94760; 99285

== ENCOUNTER → 2018-02-01 | Outpatient (CLI) | payer MEDICARE, OTHER ==
--- NOTE | 2018-02-01 14:43 | US ---
EXAMINATION TYPE: US scrotum with doppler. TECHNIQUE: Grayscale and color Doppler Duplex imaging performed of the scrotum. DATE OF EXAM: 02/01/2018 COMPARISON: NONE CLINICAL HISTORY: 83-year-old male N45.2 acute orchitis. Right testicular pain and swelling x 5 days FINDINGS: EXAM MEASUREMENTS: TESTICLES: Right Testicle: 3.0 x 1.7 x 2.9 cm Left Testicle: 3.5 x 2.1 x 2.7 cm There is satisfactory arterial and venous flow on both sides. The testicles do not show any significa nt hyperemia but are very minimally heterogeneous in echotexture, right greater than left. EPIDIDYMIS HEAD: Right Epididymis: 1.7 x 0.9 x 1.9 cm, not particularly enlarged or inflamed. Left Epididymis: not seen There is an abnormal tubular appearing thickened structure in the superior aspect of the right hemisc rotum extending up along the inguinal canal. This is heterogeneous and hyperemic with a echogenic are as within. No peristalsis is seen. There is a moderate-sized hydrocele on the right with debris. No varicocele clearly identified with the Valsalva maneuver. Findings called to Dr. Gee's office by the steel rule die maker. IMPRESSION: 1. Thickened tubular, inflamed structure extending from the superior aspect of the right testicle tow ards the inguinal canal. Echogenic areas are present within. Exact etiology is unclear. This could represent a thickened, twisted spermatic cord in the setting of torsion detorsion, bowel c ontaining inguinal hernia extending into the scrotum (though no peristalsis is seen), Reyes's gang dmitri (though we would expect this to be more clinically apparent along with more dirty shadowing), or vasitis. CT pelvis can assess for possible hernia and exclude soft tissue air. Urology consultation would also be helpful. 2. The testicles are symmetric in size with both arterial and venous flow present. No findings to sug gest epididymoorchitis. 3. Moderate-sized right-sided hydrocele with debris.
[2018-02-01 15:51] LABS: Blood Urea Nitrogen 18 mg/dL (9-20)
--- NOTE | 2018-02-02 08:10 | CT ---
EXAMINATION TYPE: CT pelvis wo/w con DATE OF EXAM: 02/01/2018 COMPARISON: CT abdomen and pelvis April 05, 2016. HISTORY: Right sided testicular and pelvic pain CT DLP: 890.7 mGycm Automated exposure control for dose reduction was used. CONTRAST: Performed without oral and without and with IV Contrast, patient injected with 100 mL of Isovue 370. FINDINGS: Noncontrast images show some cortical thinning in both kidneys. No renal calculi or hydronephrosis is present bladder has poor distention with mild concentric wall thickening. There is narrow neck diver ticulum along right posterior margin axial image 52 measuring roughly 3.3 x 2.3 cm. There are gold th erapy seeds in normal size prostate gland. There is no suspicious small or large bowel dilatation. There are diverticula in the left and sigmoid colon. No CT evidence for acute diverticulitis. Surgical sutures mid sigmoid colon in the pelvis axi al image 46 are present. No free fluid in pelvis. No suspicious pelvic adenopathy is present. There is moderate to severe calcified plaque of aorta extending into branch vessels. There are coils over the anterior pelvis wall prior hernia repair surgery. No suspicious recurrent hernia is evident. Osseous structures are demineralized. There is moderate joint space loss in both hips. Moderate-sized right scrotal fluid collection or hydrocele is identified which correlates with scrota l ultrasound earlier today. Heterogeneous tubular structure right inguinal canal coronal image 22 ser ies 12 correlates with scrotal ultrasound. Exact etiology uncertain. It is not bowel containing herni a. Mild diffuse soft tissue anasarca in the lower pelvis centered inguinal region is noted. IMPRESSION: 1. Correlating with same-day scrotal ultrasound there is moderate size right-sided scrotal fluid alfonso ection or hydrocele. There is heterogeneous hyperdense linear structure right inguinal canal of uncer tain etiology. There is mild ill-defined fluid or fat stranding in the region of bilateral inguinal c anals could reflect inflammatory change. 2. Stable right-sided bladder diverticulum. Mild bladder wall thickening could reflect cystitis corre late clinically.
== END | disposition home or self-care (01) ==
LOC: RADUSWWP 13:03
PROVIDERS: ATTEND Family Medicine
DX: N43.3 Hydrocele, unspecified (principal); Z13.9 Encounter for screening, unspecified
CPT/HCPCS: 82565; 84520; 93975; 76870; 72194; 36415; Q9967

== ENCOUNTER 2018-04-08 10:10 | Inpatient (IN) | payer MEDICARE, OTHER ==
--- NOTE | 2018-04-08 10:34 | ED ---
General Adult HPI - General Chief complaint: Shortness of Breath Stated complaint: SOB Time Seen by Provider: 04/08/18 10:16 Source: patient, EMS, RN notes reviewed Mode of arrival: EMS Limitations: no limitations - History of Present Illness Initial comments: Patient is a pleasant 83-year-old male presenting to the emergency Department with complaints of difficulty in breathing. Onset of symptoms was progressive over several days to weeks. Patient does have cough with clear sputum. No fever. Patient has noticed some leg swelling. No calf pain. No history of similar symptoms previously. No history of chronic dyspnea. No chest pain. Patient is a daily smoker - Related Data Home Medications Medication Instructions Recorded Confirmed Ipratropium [place] [Atrovent Hfa] 2 puff INHALATION RT-QID 09/16/17 11/07/17 Levothyroxine Sodium [Synthroid] 100 mcg PO DAILY 09/16/17 11/07/17 Umeclidinium [place] [Incruse 1 puff INHALATION RT-DAILY 09/16/17 11/07/17 Ellipta] glipiZIDE [Glucotrol XL] 2.5 mg PO DAILY 09/16/17 11/07/17 metFORMIN HCL [Glucophage] 1,000 mg PO DAILY 09/16/17 11/07/17 Furosemide [Lasix] 40 mg PO DAILY 10/13/17 11/07/17 Metoprolol Tartrate [Lopressor] 12.5 mg PO BID 04/08/18 04/08/18 Previous Rx's Medication Instructions Recorded Budesonide-Formot 160-4.5 Mcg 2 puff INHALATION RT-BID #1 inhaler 10/27/16 [Symbicort 160-4.5 Mcg Inhaler] Albuterol Inhaler [Ventolin Hfa 1 - 2 puff INHALATION RT-QID #0 01/13/17 Inhaler] Digoxin [Lanoxin] 125 mcg PO DAILY #30 tab 01/13/17 Ipratropium-Albuterol Nebulize 3 ml INHALATION RT-Q4H PRN 08/20/17 [Duoneb 0.5 mg-3 mg/3 ml Soln] ampul.neb Allergies Allergy/AdvReac Type Severity Reaction Status Date / Time aspirin Allergy Rash/Hives Verified 04/08/18 10:21 Review of Systems ROS Statement: Those systems with pertinent positive or pertinent negative responses have been documented in the HPI. ROS Other: All systems not noted in ROS Statement are negative. Constitutional: Denies: fever Eyes: Denies: eye pain ENT: Denies: ear pain Respiratory: Reports: cough, dyspnea Cardiovascular: Denies: chest pain Endocrine: Reports: fatigue Gastrointestinal: Denies: abdominal pain Genitourinary: Denies: dysuria Musculoskeletal: Denies: back pain Skin: Denies: rash Neurological: Denies: weakness Past Medical History Past Medical History: Atrial Fibrillation, Cancer, COPD, Diabetes Mellitus, GERD /Reflux, Hypertension, Liver Disease, Osteoarthritis (OA), Pneumonia, Prostate Disorder, Thyroid Disorder Additional Past Medical History / Comment(s): Other HX: skin cancers with removals, prostate cancer with radiation, lower GI bleed thought secondary to radiation proctitis, diverticular disease, chronic anemia, duodenal ulcer, ETOH , history of ETOH withdrawal/delirium tremors, R leg weakness, history of falls , chronic lower extremity edema, arthritis thoracic spine. History of Any Multi-Drug Resistant Organisms: None Reported Past Surgical History: Bowel Resection Additional Past Surgical History / Comment(s): thyroidectomy, colonoscopy/ polypectomy, skin cancer removed, bilateral cataracts, bowel resection-d/t diverticulits, sigmoidoscopy Past Anesthesia/Blood Transfusion Reactions: No Reported Reaction Additional Past Anesthesia/Blood Transfusion Reaction / Comment(s): has ahd blood transfusions-no reaction Past Psychological History: Anxiety, Depression Smoking Status: Current every day smoker Past Alcohol Use History: Abuse, Daily Past Drug Use History: None Reported - Past Family History Father Family Medical History: Asthma, CVA/TIA Additional Family Medical History / Comment(s): pacemaker, smoker Mother Family Medical History: Chest Pain / Angina Additional Family Medical History / Comment(s): smoker General Exam Limitations: no limitations General appearance: alert, in no apparent distress Head exam: Present: atraumatic Eye exam: Present: normal appearance, PERRL ENT exam: Present: normal oropharynx Neck exam: Present: normal inspection Respiratory exam: Present: wheezes, rhonchi Cardiovascular Exam: Present: tachycardia, irregular rhythm GI/Abdominal exam: Present: soft. Absent: tenderness Extremities exam: Present: pedal edema. Absent: calf tenderness Neurological exam: Present: alert Psychiatric exam: Present: normal affect, normal mood Skin exam: Present: normal color Course Vital Signs 04/08/18 04/08/18 10:16 12:09 Temperature 98.1 F Pulse Rate 133 H 119 H Respiratory 20 16 Rate Blood Pressure 107/75 95/66 O2 Sat by Pulse 98 100 Oximetry - Reevaluation(s) Reevaluation #1: 04/08/18 12:16 Tachycardia is related to A. fib. Patient does not meet sepsis criteria. EKG Findings - EKG Comments: EKG Findings:: A flutter with rate of 133. QRS 90. QT 214. QTC 318. Normal axis. Low QRS Voltage. Nonspecific T waves. Medical Decision Making - Medical Decision Making Patient reevaluated and updated. Case was discussed with Dr. Beltran, covering for Dr. Redman, who will admit for Dr. Gee. He did come evaluate patient in the emergency department. He will handle consults. Heparin held at this time secondary to anemia and history of gastric intestinal bleeding. - Lab Data Result diagrams: 04/08/18 10:27 04/08/18 10:27 Lab Results 04/08/18 04/08/18 04/08/18 Range/Units 10:27 10:27 10:27 WBC 7.3 (3.8-10.6) k/uL RBC 2.75 L (4.30-5.90) m/uL Hgb 8.0 L (13.0-17.5) gm/dL Hct 24.9 L (39.0-53.0) % MCV 90.5 (80.0-100.0) fL MCH 28.9 (25.0-35.0) pg MCHC 31.9 (31.0-37.0) g/dL RDW 19.6 H (11.5-15.5) % Plt Count 357 (150-450) k/uL Neutrophils % 82 % Lymphocytes % 9 % Monocytes % 6 % Eosinophils % 1 % Basophils % 0 % Neutrophils # 5.9 (1.3-7.7) k/uL Lymphocytes # 0.7 L (1.0-4.8) k/uL Monocytes # 0.5 (0-1.0) k/uL Eosinophils # 0.1 (0-0.7) k/uL Basophils # 0.0 (0-0.2) k/uL Hypochromasia Slight Anisocytosis Slight PT (9.0-12.0) sec INR (<1.2) APTT (22.0-30.0) sec Sodium 129 L (137-145) mmol/L Potassium 4.2 (3.5-5.1) mmol/L Chloride 98 (98-107) mmol/L Carbon Dioxide 18 L (22-30) mmol/L Anion Gap 13 mmol/L BUN 14 (9-20) mg/dL Creatinine 0.60 L (0.66-1.25) mg/dL Est GFR (CKD-EPI)AfAm >90 (>60 ml/min/1.73 sqM) Est GFR (CKD-EPI)NonAf >90 (>60 ml/min/1.73 sqM) Glucose 107 H (74-99) mg/dL Calcium 8.4 (8.4-10.2) mg/dL Magnesium 1.7 (1.6-2.3) mg/dL Total Bilirubin 0.4 (0.2-1.3) mg/dL AST 18 (17-59) U/L ALT 21 (21-72) U/L Alkaline Phosphatase 104 (38-126) U/L Total Creatine Kinase 51 L (55-170) U/L CK-MB (CK-2) 2.2 (0.0-2.4) ng/mL CK-MB (CK-2) Rel Index 4.3 Troponin I <0.012 (0.000-0.034) ng/mL NT-Pro-B Natriuret Pep pg/mL Total Protein 6.1 L (6.3-8.2) g/dL Albumin 3.0 L (3.5-5.0) g/dL Digoxin ng/mL 04/08/18 04/08/18 04/08/18 Range/Units 10:27 10:27 10:27 WBC (3.8-10.6) k/uL RBC (4.30-5.90) m/uL Hgb (13.0-17.5) gm/dL Hct (39.0-53.0) % MCV (80.0-100.0) fL MCH (25.0-35.0) pg MCHC (31.0-37.0) g/dL RDW (11.5-15.5) % Plt Count (150-450) k/uL Neutrophils % % Lymphocytes % % Monocytes % % Eosinophils % % Basophils % % Neutrophils # (1.3-7.7) k/uL Lymphocytes # (1.0-4.8) k/uL Monocytes # (0-1.0) k/uL Eosinophils # (0-0.7) k/uL Basophils # (0-0.2) k/uL Hypochromasia Anisocytosis PT 11.1 (9.0-12.0) sec INR 1.2 H (<1.2) APTT 31.9 H (22.0-30.0) sec Sodium (137-145) mmol/L Potassium (3.5-5.1) mmol/L Chloride (98-107) mmol/L Carbon Dioxide (22-30) mmol/L Anion Gap mmol/L BUN (9-20) mg/dL Creatinine (0.66-1.25) mg/dL Est GFR (CKD-EPI)AfAm (>60 ml/min/1.73 sqM) Est GFR (CKD-EPI)NonAf (>60 ml/min/1.73 sqM) Glucose (74-99) mg/dL Calcium (8.4-10.2) mg/dL Magnesium (1.6-2.3) mg/dL Total Bilirubin (0.2-1.3) mg/dL AST (17-59) U/L ALT (21-72) U/L Alkaline Phosphatase (38-126) U/L Total Creatine Kinase (55-170) U/L CK-MB (CK-2) (0.0-2.4) ng/mL CK-MB (CK-2) Rel Index Troponin I (0.000-0.034) ng/mL NT-Pro-B Natriuret Pep 2780 pg/mL Total Protein (6.3-8.2) g/dL Albumin (3.5-5.0) g/dL Digoxin <0.4 ng/mL - Radiology Data Radiology results: image reviewed (Chest x-ray shows moderate right-sided effusion and infiltrate.) Critical Care Time Critical Care Time: Yes Total Critical Care Time: 33 Disposition Clinical Impression: Atrial fibrillation with RVR, COPD (chronic obstructive pulmonary disease), Pleural effusion Disposition: ADMITTED IP TO THIS HOSP Is patient prescribed a controlled substance at d/c from ED?: No Referrals: Jesse Gee MD [Primary Care Provider] - 1-2 days Decision Time: 12:17
[2018-04-08 10:44] LABS: Anisocytosis Slight; Basophils % (A) 0 %; Eosinophils # (A) 0.1 k/uL (0-0.7); Eosinophils % (A) 1 %; HCT 24.9 % (39.0-53.0); Hypochromasia Slight; Lymphocytes # (A) 0.7 k/uL (1.0-4.8); Lymphocytes % (A) 9 %; MCH 28.9 pg (25.0-35.0); MCHC 31.9 g/dL (31.0-37.0); MCV 90.5 fL (80.0-100.0); Mean Platelet Volume 7.3; Monocytes # (A) 0.5 k/uL (0-1.0); Monocytes % (A) 6 %; Neutrophils # (A) 5.9 k/uL (1.3-7.7); Neutrophils % (A) 82 %; Platelet Count 357 k/uL (150-450); RBC 2.75 m/uL (4.30-5.90); RDW 19.6 % (11.5-15.5); WBC 7.3 k/uL (3.8-10.6)
[2018-04-08 10:53] LABS: ALT 21 U/L (21-72); AST 18 U/L (17-59); Alkaline Phosphatase 104 U/L (38-126); Anion Gap 13 mmol/L; Blood Urea Nitrogen 14 mg/dL (9-20); Calcium 8.4 mg/dL (8.4-10.2); Carbon Dioxide 18 mmol/L (22-30); Chloride 98 mmol/L (98-107); Glucose 107 mg/dL (74-99); Magnesium 1.7 mg/dL (1.6-2.3); Potassium 4.2 mmol/L (3.5-5.1); Sodium 129 mmol/L (137-145); Total Bilirubin 0.4 mg/dL (0.2-1.3); Total Protein 6.1 g/dL (6.3-8.2)
[2018-04-08 11:00] LABS: Creatine Kinase 51 U/L (55-170)
[2018-04-08 11:02] LABS: INR 1.2 (<1.2); Partial Thromboplastin Time 31.9 sec (22.0-30.0); Prothrombin Time 11.1 sec (9.0-12.0)
[2018-04-08 11:13] LABS: Creatine Kinase MB 2.2 ng/mL (0.0-2.4); Troponin I <0.012 ng/mL (0.000-0.034)
--- NOTE | 2018-04-08 11:34 | XR ---
EXAMINATION TYPE: XR chest 2V DATE OF EXAM: 04/08/2018 HISTORY: difficulty breathing. REFERENCE: Previous study dated 08/19/2017. FINDINGS: There is a worsening right middle lobe infiltrate. There is an associated right-sided effus ion. The heart is not enlarged. IMPRESSION: WORSENING RIGHT BASILAR INFILTRATE WITH ASSOCIATED EFFUSION.
[2018-04-08] MEDS ORDERED: DILTIAZEM DRIP BOLUS FROM BAG 1 MG SOLN IV ONE (11:41)
[2018-04-08] MEDS: DILTIAZEM 50 MG in SODIUM CHLORIDE 0.9% 40 ML IV SCH ×2 (12:08→17:19)
[2018-04-08] MEDS ORDERED: NALOXONE 0.4 MG/ML 1 ML VIAL IV PRN (12:17)
[2018-04-08] MEDS ORDERED: ACETAMINOPHEN TAB 325 MG TAB PO PRN (12:18)
[2018-04-08] MEDS ORDERED: PNEUMONIA PROTOCOL UTILIZED 1 EACH MISC PO PRN (12:20)
[2018-04-08] MEDS ORDERED: AZITHROMYCIN 500 MG in SODIUM CHLORIDE 0.9% 250 ML IVPB STA (12:20)
--- NOTE | 2018-04-08 12:30 | P.HPIM ---
History of Present Illness H&P Date: 04/08/18 Chief Complaint: Shortness of breath The patient is a 83-year-old male with a past with a history of atrial fibrillation not a candidate for anticoagulation due to history of GI bleed chronic anemia, due to radiation proctitis who presents to the ER with chief complaint of progressive worsening shortness of breath. The patient reports gradual worsening of his shortness of breath worse with exertion over the last 4 weeks, He denies chest pain, complains of paroxysmal nocturnal dyspnea, reports a productive cough of clear sputum during this time, along with lower extremity swelling. He denies any subjective fevers chills or night sweats. The patient is a resident of senior living, patient is followed by Dr. Drake who is his travel clerk and apparently the patient had a follow-up visit with him yesterday. The patient received a copy to work up in the ER was noted to be in atrial flutter with a heart rate in the 130s, BP 107/75, 98% on RA, NT proBNP 2780, serum [id number], hemoglobin and hematocrit 8 and 25 respectively. Chest x-ray showing worsening right basilar infiltrate with associated effusion. The patient was given a dose of Cardizem recommended for admission Review of Systems Pertinent positives per HPI all other review systems are otherwise negative Past Medical History Past Medical History: Atrial Fibrillation, Cancer, COPD, Diabetes Mellitus, GERD /Reflux, Hypertension, Liver Disease, Osteoarthritis (OA), Pneumonia, Prostate Disorder, Thyroid Disorder Additional Past Medical History / Comment(s): Other HX: skin cancers with removals, prostate cancer with radiation, lower GI bleed thought secondary to radiation proctitis, diverticular disease, chronic anemia, duodenal ulcer, ETOH , history of ETOH withdrawal/delirium tremors, R leg weakness, history of falls , chronic lower extremity edema, arthritis thoracic spine. History of Any Multi-Drug Resistant Organisms: None Reported Past Surgical History: Bowel Resection Additional Past Surgical History / Comment(s): thyroidectomy, colonoscopy/ polypectomy, skin cancer removed, bilateral cataracts, bowel resection-d/t diverticulits, sigmoidoscopy Past Anesthesia/Blood Transfusion Reactions: No Reported Reaction Additional Past Anesthesia/Blood Transfusion Reaction / Comment(s): has ahd blood transfusions-no reaction Past Psychological History: Anxiety, Depression Smoking Status: Current every day smoker Past Alcohol Use History: Abuse, Daily Past Drug Use History: None Reported - Past Family History Father Family Medical History: Asthma, CVA/TIA Additional Family Medical History / Comment(s): pacemaker, smoker Mother Family Medical History: Chest Pain / Angina Additional Family Medical History / Comment(s): smoker Medications and Allergies Home Medications Medication Instructions Recorded Confirmed Type Budesonide-Formot 160-4.5 Mcg 2 puff INHALATION RT-BID #1 inhaler 10/27/1604/08 Rx [Symbicort 160-4.5 Mcg Inhaler] Albuterol Inhaler [Ventolin Hfa 1 - 2 puff INHALATION RT-QID #0 01/13/17 Rx Inhaler] Digoxin [Lanoxin] 125 mcg PO DAILY #30 tab 01/13/17 04/08/18 Rx Ipratropium-Albuterol Nebulize 3 ml INHALATION RT-Q4H PRN 08/20/17 04/08/18 Rx [Duoneb 0.5 mg-3 mg/3 ml Soln] ampul.neb Ipratropium [place] [Atrovent Hfa] 2 puff INHALATION RT-QID 09/16/17 04/08/18 History Levothyroxine Sodium [Synthroid] 100 mcg PO DAILY 09/16/17 04/08/18 History Umeclidinium [place] [Incruse 1 puff INHALATION RT-DAILY 09/16/17 04/08/18 History Ellipta] glipiZIDE [Glucotrol XL] 2.5 mg PO DAILY 09/16/17 04/08/18 History metFORMIN HCL [Glucophage] 1,000 mg PO DAILY 09/16/17 04/08/18 History Furosemide [Lasix] 40 mg PO DAILY 10/13/17 04/08/18 History Metoprolol Tartrate [Lopressor] 12.5 mg PO BID 04/08/18 04/08/18 History Allergies Allergy/AdvReac Type Severity Reaction Status Date / Time aspirin Allergy Rash/Hives Verified 04/08/18 10:21 Physical Exam Vitals: Vital Signs Temp Pulse Resp BP Pulse Ox 04/08/18 10:16 98.1 F 133 H 20 107/75 98 Intake and Output 04/07/18 04/08/18 04/08/18 22:59 06:59 14:59 Other: Weight 68.039 kg Constitutional: No acute distress, conversant, pleasant Eyes: Anicteric sclerae, moist conjunctiva, no lid-lag, PERRLA ENMT: NC/AT,Oropharynx clear, no erythema, exudates Neck:Supple, FROM, no masses, or JVD, No carotid bruits; No thyromegaly Lungs: Clear to auscultation, Clear to percussion, Normal respiratory effort, no accessory muscle use Cardiovascular: Irregularly irregular, No murmurs, gallops, or rubs no peripheral edema Abdominal: Soft Nontender, nom distended, no guarding, no rebound or rigidity, Normoactive bowel sounds No hepatomegaly, No splenomegaly, No palpable mass No abdominal wall hernia noted Skin: Normal temperature, tone, texture, turgor, No induration No subcutaneous nodules, No rash, lesions, No ulcers Extremities:No digital cyanosis No clubbing, Pedal pulses intact and symmetrical Radial pulses intact and symmetrical Normal gait and station, No calf tenderness Psychiatric: Alert and oriented to person, place and time, Appropriate affect Intact judgement Neuro: Muscles Strength 5/5 in all 4 extremities, Sensation to light touch grossly present throughout, Cranial nerves II-XII grossly intact. No focal sensory deficits Results CBC & Chem 7: 04/09/18 05:34 04/09/18 05:34 Labs: Abnormal Lab Results - Last 24 Hours (Table) 04/08/18 04/08/18 04/08/18 Range/Units 10:27 10:27 10:27 RBC 2.75 L (4.30-5.90) m/uL Hgb 8.0 L (13.0-17.5) gm/dL Hct 24.9 L (39.0-53.0) % RDW 19.6 H (11.5-15.5) % Lymphocytes # 0.7 L (1.0-4.8) k/uL INR (<1.2) APTT (22.0-30.0) sec Sodium 129 L (137-145) mmol/L Carbon Dioxide 18 L (22-30) mmol/L Creatinine 0.60 L (0.66-1.25) mg/dL Glucose 107 H (74-99) mg/dL Total Creatine Kinase 51 L (55-170) U/L Total Protein 6.1 L (6.3-8.2) g/dL Albumin 3.0 L (3.5-5.0) g/dL 04/08/18 Range/Units 10:27 RBC (4.30-5.90) m/uL Hgb (13.0-17.5) gm/dL Hct (39.0-53.0) % RDW (11.5-15.5) % Lymphocytes # (1.0-4.8) k/uL INR 1.2 H (<1.2) APTT 31.9 H (22.0-30.0) sec Sodium (137-145) mmol/L Carbon Dioxide (22-30) mmol/L Creatinine (0.66-1.25) mg/dL Glucose (74-99) mg/dL Total Creatine Kinase (55-170) U/L Total Protein (6.3-8.2) g/dL Albumin (3.5-5.0) g/dL Assessment and Plan Assessment: Chronic medical conditions Hypothyroidism secondary to thyroidectomy COPD GERD Chronic gait dysfunction Essential hypertension Radiation proctitis with intermittent GI bleed (1) Dyspnea Current Visit: Yes Status: Acute Code(s): R06.00 - DYSPNEA, UNSPECIFIED SNOMED Code(s): 939624880 (2) Atrial fibrillation with RVR Current Visit: No Status: Acute Code(s): I48.91 - UNSPECIFIED ATRIAL FIBRILLATION SNOMED Code(s): 099665211582683 (3) Pneumonia Current Visit: No Status: Acute Code(s): J18.9 - PNEUMONIA, UNSPECIFIED ORGANISM SNOMED Code(s): 835263769 (4) Parapneumonic effusion Current Visit: Yes Status: Acute Code(s): J18.9 - PNEUMONIA, UNSPECIFIED ORGANISM; J91.8 - PLEURAL EFFUSION IN OTHER CONDITIONS CLASSIFIED ELSEWHERE SNOMED Code(s): 67686428 (5) Chronic blood loss anemia Current Visit: Yes Status: Acute Code(s): D50.0 - IRON DEFICIENCY ANEMIA SECONDARY TO BLOOD LOSS (CHRONIC) SNOMED Code(s): 361093877 (6) Hyponatremia Current Visit: Yes Status: Acute Code(s): E87.1 - HYPO-OSMOLALITY AND HYPONATREMIA SNOMED Code(s): 50382918 Plan: The patient is admitted to the telemetry unit on 6 selective anticipated greater than 2 midnight stay after presenting with dyspnea found to be in A. fib A flutter with RVR with a right sided pneumonia with possible parapneumonic effusion, we'll cover for healthcare associated as the patient is a senior living resident with [facility], ordered chest ultrasound, consult respiratory for possible thoracentesis, check sputum culture, 2-D echocardiogram consult cardiology. Continue diltiazem drip, resume all home regimen. Monitor blood sugars with Accu-Cheks with correctional scale coverage when necessary. As previously documented patient not a candidate for anticoagulation due to history of GI bleed, intermittently due to radiation proctitis. Continue to follow patient's clinical course
[2018-04-08] MEDS ORDERED: PIPERACILLIN-TAZOBACTAM 3.375 GM in DEXTROSE/WATER 1 50ML.BAG IVPB ONE (12:45)
[2018-04-08] MEDS: SODIUM CHLORIDE 0.9% 1,000 ML IV SCH (14:11)
[2018-04-08] MEDS: LEVOFLOXACIN 750MG-D5W PMX 750 MG in DEXTROSE/WATER 1 150ML.BAG IVPB SCH (14:44)
[2018-04-08] MEDS: ALBUTEROL NEBULIZED 2.5 MG/3 ML INHALATION SCH ×2 (16:15→19:58)
--- NOTE | 2018-04-08 16:43 | US ---
EXAMINATION TYPE: US chest DATE OF EXAM: 04/08/2018 COMPARISON: US 2018 CLINICAL HISTORY: Pain. Pleural effusion, patient refused left chest scan TECHNIQUE: Targeted ultrasound of the posterior lower right hemithorax EXAM MEASUREMENTS: Right Pleural Effusion pocket size: 8.3 cm Right skin surface to fluid distance: 2.5 cm Right side MARKED for possible thoracentesis outside the dept. Left side NOT marked for possible thoracentesis outside the dept due to patient refusing scan. Pulmonologists are able to review the images in the patient?s EMR. IMPRESSIONS: The exam shows a right pleural effusion that has a thickness of 3.5 cm.
[2018-04-08 16:48] LABS: Glucose,Whole Blood 168 mg/dL (75-99)
[2018-04-08] MEDS: INSULIN ASPART 100 UNIT/ML 1 ML 10 ML VIAL SQ SCH ×2 (17:19→21:09)
[2018-04-08 18:28] LABS: Creatine Kinase 54 U/L (55-170)
[2018-04-08 18:41] LABS: Creatine Kinase MB 2.1 ng/mL (0.0-2.4); Troponin I <0.012 ng/mL (0.000-0.034)
[2018-04-08] MEDS: SYMBICORT 160-4.5 MCG INHALER INHALATION SCH (20:04)
[2018-04-08] MEDS: METOPROLOL TARTRATE 12.5 MG TAB PO SCH (20:38)
[2018-04-08 21:08] LABS: Glucose,Whole Blood 121 mg/dL (75-99)
[2018-04-08] MEDS: MELATONIN 5 MG TABLET PO SCH (21:08)
[2018-04-08 22:14] LABS: Creatine Kinase 42 U/L (55-170)
[2018-04-08 22:28] LABS: Creatine Kinase MB 1.9 ng/mL (0.0-2.4); Troponin I <0.012 ng/mL (0.000-0.034)
[2018-04-08] MEDS: PIPERACILLIN-TAZOBACTAM 3.375 GM in DEXTROSE/WATER 1 50ML.BAG IVPB SCH (22:54)
[2018-04-09] MEDS: DILTIAZEM 50 MG in SODIUM CHLORIDE 0.9% 40 ML IV SCH ×3 (00:17→18:03)
[2018-04-09] MEDS: IPRATROPIUM-ALBUTEROL 3 ML NEB INHALATION PRN (05:49)
[2018-04-09 05:57] LABS: Anisocytosis Slight; Basophils % (A) 0 %; Eosinophils # (A) 0.1 k/uL (0-0.7); Eosinophils % (A) 2 %; HCT 24.9 % (39.0-53.0); HGB 7.6 gm/dL (13.0-17.5); Hypochromasia Moderate; Lymphocytes # (A) 0.6 k/uL (1.0-4.8); Lymphocytes % (A) 10 %; MCH 28.2 pg (25.0-35.0); MCHC 30.7 g/dL (31.0-37.0); MCV 91.8 fL (80.0-100.0); Macrocytosis Slight; Mean Platelet Volume 7.3; Monocytes # (A) 0.4 k/uL (0-1.0); Monocytes % (A) 8 %; Neutrophils # (A) 4.3 k/uL (1.3-7.7); Neutrophils % (A) 78 %; Platelet Count 358 k/uL (150-450); RBC 2.71 m/uL (4.30-5.90); RDW 19.8 % (11.5-15.5); WBC 5.5 k/uL (3.8-10.6)
[2018-04-09 06:05] LABS: ALT 17 U/L (21-72); AST 16 U/L (17-59); Albumin 2.5 g/dL (3.5-5.0); Alkaline Phosphatase 95 U/L (38-126); Anion Gap 10 mmol/L; Blood Urea Nitrogen 14 mg/dL (9-20); Calcium 8.1 mg/dL (8.4-10.2); Carbon Dioxide 20 mmol/L (22-30); Chloride 101 mmol/L (98-107); Glucose 119 mg/dL (74-99); Magnesium 1.6 mg/dL (1.6-2.3); Potassium 4.6 mmol/L (3.5-5.1); Sodium 131 mmol/L (137-145); Total Bilirubin 0.5 mg/dL (0.2-1.3); Total Protein 5.5 g/dL (6.3-8.2)
--- NOTE | 2018-04-09 06:37 | XR ---
EXAMINATION TYPE: XR chest 2V DATE OF EXAM: 04/09/2018 HISTORY: pneumonia. REFERENCE: Previous study dated 04/08/2018. FINDINGS: There is an enlarging right-sided pleural effusion with associated relaxation atelectasis. Heart size is obscured. The left lung is clear. IMPRESSION: WORSENING RIGHT-SIDED EFFUSION WITH ASSOCIATED ATELECTATIC CHANGE.
[2018-04-09] MEDS: LEVOTHYROXINE 100 MCG TAB PO SCH (06:42)
[2018-04-09] MEDS: INSULIN ASPART 100 UNIT/ML 1 ML 10 ML VIAL SQ SCH ×4 (06:42→21:33)
[2018-04-09 06:58] LABS: Glucose,Whole Blood 142 mg/dL (75-99)
[2018-04-09] MEDS: PIPERACILLIN-TAZOBACTAM 3.375 GM in DEXTROSE/WATER 1 50ML.BAG IVPB SCH ×3 (08:05→23:58)
[2018-04-09] MEDS: IPRATROPIUM-ALBUTEROL 3 ML NEB INHALATION SCH ×4 (08:25→19:15)
[2018-04-09] MEDS: SYMBICORT 160-4.5 MCG INHALER INHALATION SCH ×2 (08:25→19:15)
[2018-04-09] MEDS ORDERED: LIDOCAINE 2% INJ 20 MG/ML (20 ML MDV) ONE (08:40)
[2018-04-09] MEDS: DIGOXIN 125 MCG TAB PO SCH (08:46)
[2018-04-09] MEDS: METOPROLOL TARTRATE 12.5 MG TAB PO SCH ×3 (08:46→21:33)
[2018-04-09] MEDS: PANTOPRAZOLE 40 MG/10 ML VIAL IV SCH (08:46)
[2018-04-09] MEDS: FUROSEMIDE 40 MG TAB PO SCH (08:46)
--- NOTE | 2018-04-09 10:16 | P.CRDCN ---
History of Present Illness History of present illness: This is Dr. Jorgensen dictating a consult on this patient The patient was interviewed and examined by me IMPRESSION / ASSESSMENT: Patient admitted with shortness of breath Atrial flutter, typical, with RVR Pleural effusions right greater than left History of smoking Diabetes type 2 PLAN: Rate control of atrial fibrillation TSH In the past it has been determined that the patient is not a candidate for anticoagulation. We will review this with Dr. Drake Proceed with thoracentesis HPI Patient presented with shortness of breath on exertion for several weeks along with cough ROS: No fever chills or rigors, + cough, phlegm / expectoration, no nausea, vomiting or diarrhea, no hematuria, dysuria, no musculoskeletal complaints, no strokes or seizures, no skin lesions. EXAMINATION Reduced breath sounds especially in the right side Tachycardic irregular rhythm Abdomen is soft nontender No lower symmetry edema Heart rate 110 beats a minute afebrile 97.3F or pressure 94/66 mmHg REVIEW OF LABS, ECG Hemoglobin 7.6 sodium 131 BUN and creatinine normal Troponins normal Low magnesium Twelve-lead ECG shows a rhythm consistent with typical atrial flutter with RVR up 133 beats a minute Past Medical History Past Medical History: Atrial Fibrillation, Cancer, COPD, Diabetes Mellitus, GERD /Reflux, Hypertension, Liver Disease, Osteoarthritis (OA), Pneumonia, Prostate Disorder, Thyroid Disorder Additional Past Medical History / Comment(s): Other HX: skin cancers with removals, prostate cancer with radiation, lower GI bleed thought secondary to radiation proctitis, diverticular disease, chronic anemia, duodenal ulcer, ETOH , history of ETOH withdrawal/delirium tremors, R leg weakness, history of falls , chronic lower extremity edema, arthritis thoracic spine. History of Any Multi-Drug Resistant Organisms: None Reported Past Surgical History: Bowel Resection Additional Past Surgical History / Comment(s): thyroidectomy, colonoscopy/ polypectomy, skin cancer removed, bilateral cataracts, bowel resection-d/t diverticulits, sigmoidoscopy Past Anesthesia/Blood Transfusion Reactions: No Reported Reaction Additional Past Anesthesia/Blood Transfusion Reaction / Comment(s): has ahd blood transfusions-no reaction Past Psychological History: Anxiety, Depression Smoking Status: Current every day smoker Past Alcohol Use History: Abuse, Daily Past Drug Use History: None Reported - Past Family History Father Family Medical History: Asthma, CVA/TIA Additional Family Medical History / Comment(s): pacemaker, smoker Mother Family Medical History: Chest Pain / Angina Additional Family Medical History / Comment(s): smoker Medications and Allergies Home Medications Medication Instructions Recorded Confirmed Type Budesonide-Formot 160-4.5 Mcg 2 puff INHALATION RT-BID #1 inhaler 10/27/1604/08 Rx [Symbicort 160-4.5 Mcg Inhaler] Albuterol Inhaler [Ventolin Hfa 1 - 2 puff INHALATION RT-QID #0 01/13/17 Rx Inhaler] Digoxin [Lanoxin] 125 mcg PO DAILY #30 tab 01/13/17 04/08/18 Rx Ipratropium-Albuterol Nebulize 3 ml INHALATION RT-Q4H PRN 08/20/17 04/08/18 Rx [Duoneb 0.5 mg-3 mg/3 ml Soln] ampul.neb Ipratropium [place] [Atrovent Hfa] 2 puff INHALATION RT-QID 09/16/17 04/08/18 History Levothyroxine Sodium [Synthroid] 100 mcg PO DAILY 09/16/17 04/08/18 History Umeclidinium [place] [Incruse 1 puff INHALATION RT-DAILY 09/16/17 04/08/18 History Ellipta] glipiZIDE [Glucotrol XL] 2.5 mg PO DAILY 09/16/17 04/08/18 History metFORMIN HCL [Glucophage] 1,000 mg PO DAILY 09/16/17 04/08/18 History Furosemide [Lasix] 40 mg PO DAILY 10/13/17 04/08/18 History Metoprolol Tartrate [Lopressor] 12.5 mg PO BID 04/08/18 04/08/18 History Allergies Allergy/AdvReac Type Severity Reaction Status Date / Time aspirin Allergy Rash/Hives Verified 04/08/18 10:21 Physical Exam Vitals: Vital Signs Temp Pulse Pulse Resp BP BP Pulse Ox 04/09/18 08:44 110 H 04/09/18 08:35 112 H 04/09/18 08:00 97.3 F L 120 H 18 94/66 98 04/09/18 06:02 114 H 04/09/18 05:51 114 H 04/09/18 03:47 104 H 17 04/09/18 03:46 98.6 F 104 H 17 102/52 96 04/09/18 00:00 98.4 F 103 H 18 103/67 95 04/08/18 20:00 98.7 F 125 H 17 100/64 99 04/08/18 16:40 132 H 16 04/08/18 16:39 132 H 16 94/64 100 04/08/18 16:24 137 H 04/08/18 16:17 136 H 04/08/18 13:35 97 F L 135 H 16 104/67 100 04/08/18 12:49 98.1 F 129 H 20 97/68 100 04/08/18 12:09 119 H 16 95/66 100 04/08/18 10:16 98.1 F 133 H 20 107/75 98 Intake and Output 04/08/18 04/09/18 04/09/18 22:59 06:59 14:59 Intake Total 135.917 754.833 Balance 135.917 754.833 Intake: Intake, IV Titration 25.917 304.833 Amount Diltiazem 50 mg In Sodium 25.917 34.833 Chloride 0.9% 40 ml @ 5 MG/HR 5 mls/hr IV .Q10H [facility] Rx#:[id number] Piperacillin-Tazobactam 3 50 .375 gm In Dextrose/Water 1 50ml.bag @ 12.5 mls/hr IVPB ONCE ONE Rx#: [id number] Sodium Chloride 0.9% 1, 220 000 ml @ 20 mls/hr IV . Q24H [facility] Rx#:[id number] Oral 110 450 Other: Voiding Method Incontinent Incontinent # Voids 1 1 # Bowel Movements 0 Weight 94.2 kg 74.1 kg Results 04/09/18 05:34 04/09/18 05:34 Cardiac Enzymes 04/08/18 04/08/18 04/08/18 Range/Units 10:27 10:27 17:49 AST 18 (17-59) U/L CK-MB (CK-2) 2.2 2.1 (0.0-2.4) ng/mL Troponin I <0.012 <0.012 (0.000-0.034) ng/mL 04/08/18 04/09/18 Range/Units 21:49 05:34 AST 16 L (17-59) U/L CK-MB (CK-2) 1.9 (0.0-2.4) ng/mL Troponin I <0.012 (0.000-0.034) ng/mL Coagulation 04/08/18 Range/Units 10:27 PT 11.1 (9.0-12.0) sec APTT 31.9 H (22.0-30.0) sec CBC 04/08/18 04/09/18 Range/Units 10:27 05:34 WBC 7.3 5.5 (3.8-10.6) k/uL RBC 2.75 L 2.71 L (4.30-5.90) m/uL Hgb 8.0 L 7.6 L (13.0-17.5) gm/dL Hct 24.9 L 24.9 L (39.0-53.0) % Plt Count 357 358 (150-450) k/uL Comprehensive Metabolic Panel 04/08/18 04/09/18 Range/Units 10:27 05:34 Sodium 129 L 131 L (137-145) mmol/L Potassium 4.2 4.6 (3.5-5.1) mmol/L Chloride 98 101 (98-107) mmol/L Carbon Dioxide 18 L 20 L (22-30) mmol/L BUN 14 14 (9-20) mg/dL Creatinine 0.60 L 0.77 (0.66-1.25) mg/dL Glucose 107 H 119 H (74-99) mg/dL Calcium 8.4 8.1 L (8.4-10.2) mg/dL AST 18 16 L (17-59) U/L ALT 21 17 L (21-72) U/L Alkaline Phosphatase 104 95 (38-126) U/L Total Protein 6.1 L 5.5 L (6.3-8.2) g/dL Albumin 3.0 L 2.5 L (3.5-5.0) g/dL Current Medications Generic Name Dose Route Start Last Admin Trade Name Freq PRN Reason Stop Dose Admin Acetaminophen 650 mg 04/08/18 12:18 Tylenol Tab PO Q6HR PRN Mild Pain or Fever > 100.5 Albuterol/Ipratropium 3 ml 04/09/18 08:00 04/09/18 08:25 Duoneb 0.5 Mg-3 Mg/3 Ml Soln INHALATION 3 ml RT-QID NAIMA Administration Albuterol/Ipratropium 3 ml 04/09/18 04:56 04/09/18 05:49 Duoneb 0.5 Mg-3 Mg/3 Ml Soln INHALATION 3 ml RT-TID PRN Administration Shortness Of Breath Or Wheezing Budesonide/Formoterol Fumarate 2 puff 04/08/18 20:00 04/09/18 08:25 Symbicort 160-4.5 Mcg Inhaler INHALATION 2 puff RT-BID NAIMA Administration Digoxin 125 mcg 04/09/18 09:00 04/09/18 08:46 Lanoxin PO 125 mcg DAILY NAIMA Administration Furosemide 40 mg 04/09/18 09:00 04/09/18 08:46 Lasix PO 40 mg DAILY NAIMA Administration Diltiazem HCl 50 mg/ Sodium 50 mls @ 5 mls/hr 04/08/18 11:45 04/09/18 00:17 Chloride IV 5 mg/hr .Q10H NAIMA 5 mls/hr Administration 5 MG/HR Sodium Chloride 1,000 mls @ 20 mls/hr 04/08/18 12:30 04/08/18 14:11 Saline 0.9% IV Not Given .Q24H [facility]IM[facility] Levofloxacin 750 mg/ IV 150 mls @ 100 mls/hr 04/08/18 12:45 04/08/18 14:44 Solution IVPB 100 mls/hr DAILY@1200 NAIMA Administration Piperacillin/Tazobactam/ 50 mls @ 12.5 mls/hr 04/09/18 00:00 04/09/18 08:05 Dextrose 3.375 gm/ IV Solution IVPB 12.5 mls/hr Q8HR [facility]IM[facility] Administration Insulin Aspart 0 unit 04/08/18 17:30 04/09/18 06:42 Novolog SQ 1 unit ACHS NAIMA Administration Protocol Levothyroxine Sodium 100 mcg 04/09/18 06:30 04/09/18 06:42 Synthroid PO 100 mcg DAILY@0630 NAIMA Administration Melatonin 5 mg 04/08/18 21:00 04/08/18 21:08 Melatonin PO 5 mg HS NAIMA Administration Metoprolol Tartrate 12.5 mg 04/09/18 10:15 Lopressor PO Q8H [facility] Miscellaneous Information 1 each 04/08/18 12:20 Pneumonia Protocol Utilized PO ONCE PRN Per Protocol Naloxone HCl 0.2 mg 04/08/18 12:17 Narcan IV Q2M PRN Opioid Reversal Pantoprazole Sodium 40 mg 04/09/18 09:00 04/09/18 08:46 Protonix IV 40 mg DAILY NAIMA Administration Intake and Output 04/08/18 04/09/18 04/09/18 22:59 06:59 14:59 Intake Total 135.917 754.833 Balance 135.917 754.833 Intake: Intake, IV Titration 25.917 304.833 Amount Diltiazem 50 mg In Sodium 25.917 34.833 Chloride 0.9% 40 ml @ 5 MG/HR 5 mls/hr IV .Q10H [facility] Rx#:[id number] Piperacillin-Tazobactam 3 50 .375 gm In Dextrose/Water 1 50ml.bag @ 12.5 mls/hr IVPB ONCE ONE Rx#: [id number] Sodium Chloride 0.9% 1, 220 000 ml @ 20 mls/hr IV . Q24H [facility] Rx#:[id number] Oral 110 450 Other: Voiding Method Incontinent Incontinent # Voids 1 1 # Bowel Movements 0 Weight 94.2 kg 74.1 kg Patient Weight 04/10/18 06:59 Weight 74.1 kg 04/09/18 05:34 04/09/18 05:34
--- NOTE | 2018-04-09 10:47 | XR ---
EXAMINATION TYPE: XR chest 1V portable DATE OF EXAM: 04/09/2018 HISTORY: post thoracentesis. REFERENCE: Previous study dated 04/09/2018. FINDINGS: The heart remains enlarged. There is a left pleural fluid on the right following thoracente sis. No definite pneumothorax is seen. There is some right basilar airspace disease. The left lung is clear. IMPRESSION: I DO NOT SEE A POSTTHORACENTESIS COMPLICATION.
--- NOTE | 2018-04-09 10:59 | P.CNPUL ---
History of Present Illness Consult date: 04/09/18 Requesting physician: Karel Beltran Reason for consult: dyspnea, pleural effusion Chief complaint: Shortness of breath, pleural effusion, Afib RVR History of present illness: This is a 83-year-old white male patient who presented to the emergency department on 04/08/2018, peripheral edema. Patient states he has been having episodes of paroxysmal nocturnal dyspnea waking up in the middle of the night being short of breath. Denied any fever or chills, and he is able to bring up small amount of clear sputum, no chest pain. Patient has underlying history of COPD, and he is a current smoker, smoking a pack and half a day. Patient also has history of daily EtOH intake, drinking half a pint of vodka on a daily basis. He resides in the half-way home and for aggression. As medical history is positive for A. fib, diabetes mellitus, GERD/reflux, hypertension, osteoarthritis, previous episodes of pneumonia, prostate disorder, hypothyroidism, skin cancer would removal, prostate cancer status post radiation , lower GI bleed. Chest x-ray was completed and showed right basilar infiltrate with associated effusion. Ultrasound chest was completed, and showed 8.3 right pleural effusion pocket. Labs were negative for any signs of leukocytosis, WBC 7.3, hemoglobin is 8.0, INR is 1.2, sodium is 129, CO2 is 18, BUN is 14, creatinine 0.60. Troponin and cardiac enzymes were negative 1, proBNP was 2780. Patient is not anticoagulated due to his history of lower GI bleeding. He remains on Cardizem drip for rate control, and cardiology is following. We are asked to see the patient in consultation in regards to the possible right lower lobe pneumonia, and pleural effusion. Patient was given a dose of Zithromax and Rocephin in the emergency department, that were later switched to Zosyn and Levaquin. Review of Systems All systems: negative Constitutional: Denies chills, Denies fever Eyes: denies blurred vision, denies pain Ears, nose, mouth and throat: Denies headache, Denies sore throat Cardiovascular: Reports leg edema, Denies chest pain, Denies shortness of breath Respiratory: Reports cough with sputum, Reports dyspnea, Denies cough Gastrointestinal: Denies abdominal pain, Denies diarrhea, Denies nausea, Denies vomiting Musculoskeletal: Denies myalgias Integumentary: Denies pruritus, Denies rash Neurological: Denies numbness, Denies weakness Psychiatric: Denies anxiety, Denies depression Endocrine: Denies fatigue, Denies weight change Past Medical History Past Medical History: Atrial Fibrillation, Cancer, COPD, Diabetes Mellitus, GERD /Reflux, Hypertension, Liver Disease, Osteoarthritis (OA), Pneumonia, Prostate Disorder, Thyroid Disorder Additional Past Medical History / Comment(s): Other HX: skin cancers with removals, prostate cancer with radiation, lower GI bleed thought secondary to radiation proctitis, diverticular disease, chronic anemia, duodenal ulcer, ETOH , history of ETOH withdrawal/delirium tremors, R leg weakness, history of falls , chronic lower extremity edema, arthritis thoracic spine. History of Any Multi-Drug Resistant Organisms: None Reported Past Surgical History: Bowel Resection Additional Past Surgical History / Comment(s): thyroidectomy, colonoscopy/ polypectomy, skin cancer removed, bilateral cataracts, bowel resection-d/t diverticulits, sigmoidoscopy Past Anesthesia/Blood Transfusion Reactions: No Reported Reaction Additional Past Anesthesia/Blood Transfusion Reaction / Comment(s): has ahd blood transfusions-no reaction Past Psychological History: Anxiety, Depression Smoking Status: Current every day smoker Past Alcohol Use History: Abuse, Daily Past Drug Use History: None Reported - Past Family History Father Family Medical History: Asthma, CVA/TIA Additional Family Medical History / Comment(s): pacemaker, smoker Mother Family Medical History: Chest Pain / Angina Additional Family Medical History / Comment(s): smoker Medications and Allergies Home Medications Medication Instructions Recorded Confirmed Type Budesonide-Formot 160-4.5 Mcg 2 puff INHALATION RT-BID #1 inhaler 10/27/1604/08 Rx [Symbicort 160-4.5 Mcg Inhaler] Albuterol Inhaler [Ventolin Hfa 1 - 2 puff INHALATION RT-QID #0 01/13/17 Rx Inhaler] Digoxin [Lanoxin] 125 mcg PO DAILY #30 tab 01/13/17 04/08/18 Rx Ipratropium-Albuterol Nebulize 3 ml INHALATION RT-Q4H PRN 08/20/17 04/08/18 Rx [Duoneb 0.5 mg-3 mg/3 ml Soln] ampul.neb Ipratropium [place] [Atrovent Hfa] 2 puff INHALATION RT-QID 02/23/18 09/15/18 History Levothyroxine Sodium [Synthroid] 100 mcg PO DAILY 09/16/17 04/08/18 History Umeclidinium [place] [Incruse 1 puff INHALATION RT-DAILY 09/16/17 04/08/18 History Ellipta] glipiZIDE [Glucotrol XL] 2.5 mg PO DAILY 09/16/17 04/08/18 History metFORMIN HCL [Glucophage] 1,000 mg PO DAILY 09/16/17 04/08/18 History Furosemide [Lasix] 40 mg PO DAILY 10/13/17 04/08/18 History Metoprolol Tartrate [Lopressor] 12.5 mg PO BID 04/08/18 04/08/18 History Allergies Allergy/AdvReac Type Severity Reaction Status Date / Time aspirin Allergy Rash/Hives Verified 04/08/18 10:21 Physical Exam Vitals: Vital Signs Temp Pulse Pulse Resp BP BP Pulse Ox 04/09/18 08:44 110 H 04/09/18 08:35 112 H 04/09/18 08:00 97.3 F L 120 H 18 94/66 98 04/09/18 06:02 114 H 04/09/18 05:51 114 H 04/09/18 03:47 104 H 17 04/09/18 03:46 98.6 F 104 H 17 102/52 96 04/09/18 00:00 98.4 F 103 H 18 103/67 95 04/08/18 20:00 98.7 F 125 H 17 100/64 99 04/08/18 16:40 132 H 16 04/08/18 16:39 132 H 16 94/64 100 04/08/18 16:24 137 H 04/08/18 16:17 136 H 04/08/18 13:35 97 F L 135 H 16 104/67 100 04/08/18 12:49 98.1 F 129 H 20 97/68 100 04/08/18 12:09 119 H 16 95/66 100 Intake and Output 04/08/18 04/09/18 04/09/18 22:59 06:59 14:59 Intake Total 135.917 754.833 Balance 135.917 754.833 Intake: Intake, IV Titration 25.917 304.833 Amount Diltiazem 50 mg In Sodium 25.917 34.833 Chloride 0.9% 40 ml @ 5 MG/HR 5 mls/hr IV .Q10H [facility] Rx#:[id number] Piperacillin-Tazobactam 3 50 .375 gm In Dextrose/Water 1 50ml.bag @ 12.5 mls/hr IVPB ONCE ONE Rx#: [id number] Sodium Chloride 0.9% 1, 220 000 ml @ 20 mls/hr IV . Q24H [facility] Rx#:[id number] Oral 110 450 Other: Voiding Method Incontinent Incontinent # Voids 1 1 # Bowel Movements 0 Weight 94.2 kg 74.1 kg GENERAL EXAM: Alert, pale 83-year-old white male, comfortable in no apparent distress. HEAD: Normocephalic/atraumatic. EYES: Normal reaction of pupils, equal size. Conjunctiva pink, sclera white. NOSE: Clear with pink turbinates. THROAT: No erythema or exudates. NECK: No masses, no JVD, no thyroid enlargement, no adenopathy. CHEST: No chest wall deformity. Symmetrical expansion. LUNGS: Equal air entry with coarse bibasilar crackles, diminished breath sounds at the bases, some dullness at the right base CVS: Regular rate and rhythm, normal S1 and S2, no gallops, no murmurs, no rubs ABDOMEN: Soft, nontender. No hepatosplenomegaly, normal bowel sounds, no guarding or rigidity. EXTREMITIES: No clubbing, +1 edema in bilateral lower extremities, no cyanosis, 2+ pulses and upper and lower extremities. MUSCULOSKELETAL: Muscle strength and tone normal. Patient has dressing on the right hand for a recent skin cancer removal SPINE: No scoliosis or deformity SKIN: No rashes CENTRAL NERVOUS SYSTEM: Alert and oriented -3. No focal deficits, tone is normal in all 4 extremities. PSYCHIATRIC: Alert and oriented -3. Appropriate affect. Intact judgment and insight. Results - Laboratory Findings CBC and BMP: 04/09/18 05:34 04/09/18 05:34 PT/INR, D-dimer PT 11.1 sec (9.0-12.0) 04/08/18 10:27 INR 1.2 (<1.2) H 04/08/18 10:27 Abnormal lab findings: Abnormal Labs 04/08/18 04/08/18 04/08/18 10:27 10:27 10:27 RBC 2.75 L Hgb 8.0 L Hct 24.9 L MCHC RDW 19.6 H Lymphocytes # 0.7 L INR APTT Sodium 129 L Carbon Dioxide 18 L Creatinine 0.60 L Glucose 107 H POC Glucose (mg/dL) Calcium AST ALT Total Creatine Kinase 51 L Total Protein 6.1 L Albumin 3.0 L 04/08/18 04/08/18 04/08/18 10:27 16:24 17:49 RBC Hgb Hct MCHC RDW Lymphocytes # INR 1.2 H APTT 31.9 H Sodium Carbon Dioxide Creatinine Glucose POC Glucose (mg/dL) 168 H Calcium AST ALT Total Creatine Kinase 54 L Total Protein Albumin 04/08/18 04/08/18 04/09/18 21:05 21:49 05:34 RBC 2.71 L Hgb 7.6 L Hct 24.9 L MCHC 30.7 L RDW 19.8 H Lymphocytes # 0.6 L INR APTT Sodium Carbon Dioxide Creatinine Glucose POC Glucose (mg/dL) 121 H Calcium AST ALT Total Creatine Kinase 42 L Total Protein Albumin 04/09/18 04/09/18 05:34 06:38 RBC Hgb Hct MCHC RDW Lymphocytes # INR APTT Sodium 131 L Carbon Dioxide 20 L Creatinine Glucose 119 H POC Glucose (mg/dL) 142 H Calcium 8.1 L AST 16 L ALT 17 L Total Creatine Kinase Total Protein 5.5 L Albumin 2.5 L - Diagnostic Findings Chest x-ray: report reviewed, image reviewed Additional studies: Ultrasound chest reviewed, EKG reviewed Assessment and Plan Plan: Assessment: #1. Dyspnea likely related to right pleural effusion, that could possibly be related to an underlying pneumonia. Patient underwent right-sided thoracentesis by Dr. Ortega today, with drainage of 350-400 mL of cloudy yellow effusion, and the fluid was sent for analysis and cultures #2. A. fib RVR #3. Chronic A. fib, patient not on any anticoagulation for history of GI bleeding #4. Chronic obstructive pulmonary disease #5. History of thyroid cancer with thyroidectomy #6. Hypothyroidism #7. History of lower GI bleed secondary to radiation proctitis #8. Chronic anemia #9. Daily EtOH #10. Diabetes mellitus type 2 #11. Chronic And ongoing nicotine dependence Plan: Pleural fluid was sent for analysis, and cultures. Possibilities include possible underlying pneumonia, continue current antibiotic coverage. Continue nebulized bronchodilators. Monitor for signs of delirium tremens. Follow-up chest x-ray has been reviewed and showed no pneumothorax, and improvement in the appearance of the right pleural effusion. I performed a history & physical examination of the patient and discussed their management with my nurse practitioner, Sujatha Barron. I reviewed the nurse practitioner's note and agree with the documented findings and plan of care. Lung sounds are positive for diffuse crackles at the bases, and dullness at the right base. The findings and the impression was discussed with the patient. I attest to the documentation by the nurse practitioner. Time with Patient: Greater than 30
[2018-04-09] MEDS ORDERED: Magnesium Replacement Protocol 1 EACH MISC MISCELLANE PRN (11:05)
[2018-04-09] MEDS ORDERED: NICOTINE 21MG/24HR PATCH TRANSDERM STA (11:08)
[2018-04-09 11:29] LABS: Glucose,Whole Blood 160 mg/dL (75-99)
--- NOTE | 2018-04-09 11:29 | P.PN ---
Subjective Progress Note Date: 04/09/18 Patient in better spirits today, had bedside right-sided thoracic centesis by Dr. Ortega and done with drainage of approximately 300 mL of cloudy yellow fluid. Patient has been afebrile, daughter and caregiver present. Still in aflutter with RVR, no acute events overnight Objective - Vital Signs Vital signs: Vital Signs Temp 97.3 F L 04/09/18 08:00 Pulse 118 H 04/09/18 10:47 Resp 16 04/09/18 10:47 BP 99/64 04/09/18 10:47 Pulse Ox 98 04/09/18 10:47 Intake & Output 04/08/18 04/09/18 04/09/18 18:59 06:59 18:59 Intake Total 135.917 754.833 Balance 135.917 754.833 Weight 68.039 kg 94.2 kg 74.1 kg Intake: Intake, IV Titration 25.917 304.833 Amount Diltiazem 50 mg In Sodium 25.917 34.833 Chloride 0.9% 40 ml @ 5 MG/HR 5 mls/hr IV .Q10H [facility] Rx#:[id number] Piperacillin-Tazobactam 3 50 .375 gm In Dextrose/Water 1 50ml.bag @ 12.5 mls/hr IVPB ONCE ONE Rx#: [id number] Sodium Chloride 0.9% 1, 220 000 ml @ 20 mls/hr IV . Q24H [facility] Rx#:[id number] Oral 110 450 Other: Voiding Method Incontinent Incontinent # Voids 3 1 # Bowel Movements 0 0 - Exam Constitutional: No acute distress, conversant, pleasant Eyes: Anicteric sclerae, moist conjunctiva, no lid-lag, PERRLA ENMT: NC/AT,Oropharynx clear, no erythema, exudates Neck:Supple, FROM, no masses, or JVD, No carotid bruits; No thyromegaly Lungs: Coarse bibasilar crackles diminished in the bases with some dullness on the right Cardiovascular: Irregularly regular, No murmurs, gallops, or rubs no peripheral edema Abdominal: Soft Nontender, nom distended, no guarding, no rebound or rigidity, Normoactive bowel sounds No hepatomegaly, No splenomegaly, No palpable mass No abdominal wall hernia noted Skin: Normal temperature, tone, texture, turgor, No induration No subcutaneous nodules, No rash, lesions, No ulcers Extremities:No digital cyanosis No clubbing, Pedal pulses intact and symmetrical Radial pulses intact and symmetrical Normal gait and station, No calf tenderness Psychiatric: Alert and oriented to person, place and time, Appropriate affect Intact judgement Neuro: Muscles Strength 5/5 in all 4 extremities, Sensation to light touch grossly present throughout, Cranial nerves II-XII grossly intact. No focal sensory deficits - Labs CBC & Chem 7: 04/09/18 05:34 04/09/18 05:34 Labs: Abnormal Lab Results - Last 24 Hours (Table) 04/08/18 04/08/18 04/08/18 Range/Units 16:24 17:49 21:05 RBC (4.30-5.90) m/uL Hgb (13.0-17.5) gm/dL Hct (39.0-53.0) % MCHC (31.0-37.0) g/dL RDW (11.5-15.5) % Lymphocytes # (1.0-4.8) k/uL Sodium (137-145) mmol/L Carbon Dioxide (22-30) mmol/L Glucose (74-99) mg/dL POC Glucose (mg/dL) 168 H 121 H (75-99) mg/dL Calcium (8.4-10.2) mg/dL AST (17-59) U/L ALT (21-72) U/L Total Creatine Kinase 54 L (55-170) U/L Total Protein (6.3-8.2) g/dL Albumin (3.5-5.0) g/dL 04/08/18 04/09/18 04/09/18 Range/Units 21:49 05:34 05:34 RBC 2.71 L (4.30-5.90) m/uL Hgb 7.6 L (13.0-17.5) gm/dL Hct 24.9 L (39.0-53.0) % MCHC 30.7 L (31.0-37.0) g/dL RDW 19.8 H (11.5-15.5) % Lymphocytes # 0.6 L (1.0-4.8) k/uL Sodium 131 L (137-145) mmol/L Carbon Dioxide 20 L (22-30) mmol/L Glucose 119 H (74-99) mg/dL POC Glucose (mg/dL) (75-99) mg/dL Calcium 8.1 L (8.4-10.2) mg/dL AST 16 L (17-59) U/L ALT 17 L (21-72) U/L Total Creatine Kinase 42 L (55-170) U/L Total Protein 5.5 L (6.3-8.2) g/dL Albumin 2.5 L (3.5-5.0) g/dL 04/09/18 Range/Units 06:38 RBC (4.30-5.90) m/uL Hgb (13.0-17.5) gm/dL Hct (39.0-53.0) % MCHC (31.0-37.0) g/dL RDW (11.5-15.5) % Lymphocytes # (1.0-4.8) k/uL Sodium (137-145) mmol/L Carbon Dioxide (22-30) mmol/L Glucose (74-99) mg/dL POC Glucose (mg/dL) 142 H (75-99) mg/dL Calcium (8.4-10.2) mg/dL AST (17-59) U/L ALT (21-72) U/L Total Creatine Kinase (55-170) U/L Total Protein (6.3-8.2) g/dL Albumin (3.5-5.0) g/dL Assessment and Plan (1) Dyspnea Narrative/Plan: * Secondary to pneumonia with pleural effusion effusion possibly parapneumonic, fluids sent for analysis * Chest ultrasound confirming a 3.5 cm thickness effusion * Continue with supplemental oxygen when necessary, along with breathing treatments * Follow-up chest x-ray Current Visit: Yes Status: Acute Code(s): R06.00 - DYSPNEA, UNSPECIFIED SNOMED Code(s): 968401241 (2) Pneumonia Narrative/Plan: * Patient afebrile leukocytosis * Continue current regimen with IV Levaquin and Zosyn * Follow up repeat chest x-ray Current Visit: No Status: Acute Code(s): J18.9 - PNEUMONIA, UNSPECIFIED ORGANISM SNOMED Code(s): 803797162 (3) Parapneumonic effusion Narrative/Plan: * Treatment as above Current Visit: Yes Status: Acute Code(s): J18.9 - PNEUMONIA, UNSPECIFIED ORGANISM; J91.8 - PLEURAL EFFUSION IN OTHER CONDITIONS CLASSIFIED ELSEWHERE SNOMED Code(s): 19446457 (4) Atrial flutter with rapid ventricular response Narrative/Plan: * Cardiology consulted, echocardiogram pending * Continue this diltiazem and metoprolol * Magnesium 1.6 with optimize with maximum replacement protocol * Not a candidate for anticoagulation due to recurrent/ 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
[2018-04-09] MEDS ORDERED: cefTRIAXone IN SWFI 1,000 MG/10 ML SYRINGE IVP SCH (12:00)
--- NOTE | 2018-04-09 12:17 | PCN ---
PROCEDURE NOTE PROCEDURE: Thoracentesis. PREOP DIAGNOSIS: Right-sided pleural effusion. POSTOP DIAGNOSIS: Right-sided pleural effusion. Indication Pleural effusion. A time-out was completed verifying correct patient, procedure, site, positioning , and implant (s) or special equipment if applicable. Ultrasound guidance was used and appropriate fluid pocket was identified and marked. Patient was positioned, prepped and draped in usual sterile fashion. Lidocaine was used to anesthetize the area. A Thoracentesis catheter was introduced into the pleural space and fluid was removed. Blood loss was none. A chest x-ray was ordered to evaluate for pneumothorax. Total Fluid Removed 400 mL Color of Fluid Turbid dark yellowish fluid Fluid was/was not sent for appropriate laboratory tests. Patient tolerated the procedure well and there were no complications. No pneumothorax. MMODL / IJN: [id number] /
[2018-04-09] MEDS ORDERED: AZITHROMYCIN 500 MG TAB PO SCH (12:20)
[2018-04-09] MEDS: LEVOFLOXACIN 750MG-D5W PMX 750 MG in DEXTROSE/WATER 1 150ML.BAG IVPB SCH (12:30)
--- NOTE | 2018-04-09 12:59 | ECHOF ---
Referral Reason:SOA, elevated BNP MEASUREMENTS -------- HEIGHT: 172.7 cm WEIGHT: 68.0 kg BP: RVIDd: 2.8 cm (< 3.3) IVSd: 1.2 cm (0.6 - 1.1) LVIDd: 4.7 cm (3.9 - 5.3) LVPWd: 1.2 cm (0.6 - 1.1) IVSs: 1.3 cm LVIDs: 2.4 cm LVPWs: 1.6 cm Ao Diam: 3.6 cm (2.0 - 3.7) AV Cusp: 0.8 cm (1.5 - 2.6) LA Diam: 4.3 cm (2.7 - 3.8) AV maxP.43 mmHg AV meanP.41 mmHg RAP: 20.00 mmHg RVSP: 53.75 mmHg FINDINGS -------- Resting tachycardia (HR>100bpm). This was a technically good study. The left ventricular size is normal. There is mild concentric left ventricular hypertrophy. Overa ll left ventricular systolic function is low-normal with, an EF between 50 - 55 %. The right ventricle is normal in size and function. The left atrium is mildly dilated. RA appears enlarged. Aortic valve is trileaflet and is severely thickened. There is moderate aortic stenosis present. Peak/mean gradient across the Aortic Valve is 37.43mmHg / 21.41mmHg. The mitral valve leaflets are mildly thickened. Severe mitral regurgitation is present. Severe tricuspid regurgitation present. There is moderate pulmonary hypertension. The right ventr icular systolic pressure, as measured by Doppler, is 53.75mmHg. The pulmonic valve was not well visualized. The aortic root size is normal. The inferior vena cava is dilated with no significant inspiratory collapse which is consistent estima nicole right atrial pressure of >20 mmHg. The pericardium is normal. CONCLUSIONS -------- 1. Resting tachycardia (HR>100bpm). 2. This was a technically good study. 3. The left ventricular size is normal. 4. There is mild concentric left ventricular hypertrophy. 5. Overall left ventricular systolic function is low-normal with, an EF between 50 - 55 %. 6. The right ventricle is normal in size and function. 7. The left atrium is mildly dilated. 8. RA appears enlarged. 9. Aortic valve is trileaflet and is severely thickened. 10. There is moderate aortic stenosis present. 11. Peak/mean gradient across the Aortic Valve is 37.43mmHg / 21.41mmHg. 12. The mitral valve leaflets are mildly thickened. 13. Severe mitral regurgitation is present. 14. Severe tricuspid regurgitation present. 15. There is moderate pulmonary hypertension. 16. The right ventricular systolic pressure, as measured by Doppler, is 53.75mmHg. 17. The pulmonic valve was not well visualized. 18. The aortic root size is normal. 19. The inferior vena cava is dilated with no significant inspiratory collapse which is consistent es timated right atrial pressure of >20 mmHg. 20. The pericardium is normal. FOREST RANGER: Anaid Leblanc RDCS
[2018-04-09 13:36] LABS: Appearance,BF Hazy; Nucleated Cells, Body Fluid 2900 /uL; RBC, Body Fluid 8700 /uL
[2018-04-09 13:38] LABS: Mononuclear WBC,Body Fluid 38 %; Polynuclear WBC,Body Fluid 62 %; Total Cells Counted,Body Fluid 100
[2018-04-09] MEDS: SODIUM CHLORIDE 0.9% 1,000 ML IV SCH (14:20)
[2018-04-09 16:54] LABS: Glucose,Whole Blood 147 mg/dL (75-99)
[2018-04-09 21:16] LABS: Glucose,Whole Blood 193 mg/dL (75-99)
[2018-04-09] MEDS: MELATONIN 5 MG TABLET PO SCH (21:33)
[2018-04-10] MEDS: IPRATROPIUM-ALBUTEROL 3 ML NEB INHALATION PRN (01:50)
[2018-04-10 05:57] LABS: Glucose,Whole Blood 150 mg/dL (75-99)
[2018-04-10] MEDS: DILTIAZEM 50 MG in SODIUM CHLORIDE 0.9% 40 ML IV SCH (06:40)
[2018-04-10] MEDS: LEVOTHYROXINE 100 MCG TAB PO SCH (06:40)
[2018-04-10] MEDS: METOPROLOL TARTRATE 12.5 MG TAB PO SCH ×3 (06:41→20:05)
[2018-04-10] MEDS: INSULIN ASPART 100 UNIT/ML 1 ML 10 ML VIAL SQ SCH ×4 (06:41→21:16)
[2018-04-10] MEDS: IPRATROPIUM-ALBUTEROL 3 ML NEB INHALATION SCH ×4 (08:05→19:38)
[2018-04-10] MEDS: SYMBICORT 160-4.5 MCG INHALER INHALATION SCH ×2 (08:05→19:38)
[2018-04-10] MEDS: DIGOXIN 125 MCG TAB PO SCH (09:23)
[2018-04-10] MEDS: FUROSEMIDE 40 MG TAB PO SCH (09:23)
[2018-04-10] MEDS: PANTOPRAZOLE 40 MG/10 ML VIAL IV SCH (09:23)
[2018-04-10] MEDS: PIPERACILLIN-TAZOBACTAM 3.375 GM in DEXTROSE/WATER 1 50ML.BAG IVPB SCH ×3 (09:24→23:13)
[2018-04-10] MEDS: NICOTINE 21MG/24HR PATCH TRANSDERM SCH (09:24)
[2018-04-10 10:07] VITALS: BMI 24.5
[2018-04-10 10:38] LABS: Total Protein, Body Fluid 2600 mg/dL
[2018-04-10 11:03] LABS: Hemoglobin A1C 6.4 % (4.0-6.0)
--- NOTE | 2018-04-10 11:43 | P.PN ---
Subjective Progress Note Date: 04/10/18 Principal diagnosis: Right pleural effusion, possibly parapneumonic in nature. This is a 83-year-old white male patient who presented to the emergency department on 04/08/2018, peripheral edema. Patient states he has been having episodes of paroxysmal nocturnal dyspnea waking up in the middle of the night being short of breath. Denied any fever or chills, and he is able to bring up small amount of clear sputum, no chest pain. Patient has underlying history of COPD, and he is a current smoker, smoking a pack and half a day. Patient also has history of daily EtOH intake, drinking half a pint of vodka on a daily basis. He resides in the half-way home and for aggression. As medical history is positive for A. fib, diabetes mellitus, GERD/reflux, hypertension, osteoarthritis, previous episodes of pneumonia, prostate disorder, hypothyroidism, skin cancer would removal, prostate cancer status post radiation , lower GI bleed. Chest x-ray was completed and showed right basilar infiltrate with associated effusion. Ultrasound chest was completed, and showed 8.3 right pleural effusion pocket. Labs were negative for any signs of leukocytosis, WBC 7.3, hemoglobin is 8.0, INR is 1.2, sodium is 129, CO2 is 18, BUN is 14, creatinine 0.60. Troponin and cardiac enzymes were negative 1, proBNP was 2780. Patient is not anticoagulated due to his history of lower GI bleeding. He remains on Cardizem drip for rate control, and cardiology is following. We are asked to see the patient in consultation in regards to the possible right lower lobe pneumonia, and pleural effusion. Patient was given a dose of Zithromax and Rocephin in the emergency department, that were later switched to Zosyn and Levaquin. Patient was reevaluated today on 04/10/2018, feeling better, asking if he could be discharged home. However, final report on the pleural effusion is pending, it is likely parapneumonic in nature, although the protein is 2.6, and LDH is 99 , this is transudative effusion considering his serum protein is 6.1. However his echocardiogram showed good LV function, but clearly the patient has severe mitral regurgitation, and moderate pulmonary hypertension. Patient did have atrial flutter on admission, it is not surprising that the fluid may be actually cardiac in nature. But again based on the chemistry of the pleural effusion, this is a transudative pleural effusion, very unlikely to be parapneumonic or to be malignant in nature. Objective - Vital Signs Vital signs: Vital Signs Temp 97.7 F 04/10/18 08:00 Pulse 102 H 04/10/18 11:29 Resp 18 04/10/18 08:00 BP 98/67 04/10/18 08:00 Pulse Ox 100 04/10/18 08:00 Intake & Output 04/09/18 04/10/18 04/10/18 18:59 06:59 18:59 Intake Total 437.75 50 120 Balance 437.75 50 120 Weight 74.1 kg 73.2 kg 73.2 kg Intake: Intake, IV Titration 77.75 50 Amount Diltiazem 50 mg In Sodium 77.75 50 Chloride 0.9% 40 ml @ 5 MG/HR 5 mls/hr IV .Q10H [facility] Rx#:[id number] Oral 360 120 Other: Voiding Method Incontinent # Voids 1 1 - Exam GENERAL EXAM: Alert, pale 83-year-old white male, comfortable in no apparent distress. HEAD: Normocephalic/atraumatic. EYES: Normal reaction of pupils, equal size. Conjunctiva pink, sclera white. NOSE: Clear with pink turbinates. THROAT: No erythema or exudates. NECK: No masses, no JVD, no thyroid enlargement, no adenopathy. CHEST: No chest wall deformity. Symmetrical expansion. LUNGS: Clear bilaterally, no crackles or rhonchi or wheezes. CVS: Regular rate and rhythm, normal S1 and S2, no gallops, 3/6 systolic murmur thought the precordium. ABDOMEN: Soft, nontender. No hepatosplenomegaly, normal bowel sounds, no guarding or rigidity. EXTREMITIES: No clubbing, +1 edema in bilateral lower extremities, no cyanosis, 2+ pulses and upper and lower extremities. MUSCULOSKELETAL: Muscle strength and tone normal. Patient has dressing on the right hand for a recent skin cancer removal SPINE: No scoliosis or deformity SKIN: No rashes CENTRAL NERVOUS SYSTEM: Alert and oriented -3. No focal deficits, tone is normal in all 4 extremities. PSYCHIATRIC: Alert and oriented -3. Appropriate affect. Intact judgment and insight. - Labs CBC & Chem 7: 04/09/18 05:34 04/09/18 05:34 Labs: Abnormal Lab Results - Last 24 Hours (Table) 04/08/18 04/09/18 04/09/18 Range/Units 10:27 16:30 21:15 POC Glucose (mg/dL) 147 H 193 H (75-99) mg/dL Hemoglobin A1c 6.4 H (4.0-6.0) % Magnesium (1.6-2.3) mg/dL 04/10/18 04/10/18 Range/Units 05:56 06:02 POC Glucose (mg/dL) 150 H (75-99) mg/dL Hemoglobin A1c (4.0-6.0) % Magnesium 1.4 L (1.6-2.3) mg/dL Microbiology - Last 24 Hours (Table) 04/09/18 10:35 Gram Stain - Preliminary Pleural Fluid Body Fluid Culture - Preliminary 04/08/18 12:53 Blood Culture - Preliminary Blood No Growth after 24 hours Assessment and Plan Assessment: #1. Dyspnea likely related to right pleural effusion, considering the pleural effusion is transudative, this is cardiac in nature, related to his mitral valve disease and A. fib/RVR. Very unlikely to be related to pneumonia or related to malignancy. LDH and protein on the fluid is relatively low pointing to transudative pleural effusion. #2. A. fib RVR #3. Chronic A. fib, patient not on any anticoagulation for history of GI bleeding #4. Chronic obstructive pulmonary disease #5. History of thyroid cancer with thyroidectomy #6. Hypothyroidism #7. History of lower GI bleed secondary to radiation proctitis #8. Chronic anemia #9. Daily EtOH #10. Diabetes mellitus type 2 #11. Chronic And ongoing nicotine dependence Recommendation: Continue present treatment plan for now, cardiology to address his cardiac condition, will continue to follow. Await for final cytology on the pleural effusion and the final cultures, I expect them both to be negative anyway. Time with Patient: Less than 30
[2018-04-10 11:51] LABS: Glucose,Whole Blood 210 mg/dL (75-99)
--- NOTE | 2018-04-10 12:59 | P.PN ---
Subjective Progress Note Date: 04/10/18 Patient in better spirits today, not feeling quite as good as yesterday with regards to his breathing. He reports is structurally swelling is much improved. Nursing reports a brief episode of disorientation and confusion that resolved spontaneously. Otherwise no acute events overnight. Patient continues to be tachycardic A flutter with RVR although his rate does seem to be improving compared to yesterday Objective - Vital Signs Vital signs: Vital Signs Temp 97.7 F 04/10/18 08:00 Pulse 109 H 04/10/18 11:44 Resp 18 04/10/18 08:00 BP 98/67 04/10/18 08:00 Pulse Ox 100 04/10/18 08:00 Intake & Output 04/09/18 04/10/18 04/10/18 18:59 06:59 18:59 Intake Total 437.75 50 120 Balance 437.75 50 120 Weight 74.1 kg 73.2 kg 73.2 kg Intake: Intake, IV Titration 77.75 50 Amount Diltiazem 50 mg In Sodium 77.75 50 Chloride 0.9% 40 ml @ 5 MG/HR 5 mls/hr IV .Q10H [facility] Rx#:[id number] Oral 360 120 Other: Voiding Method Incontinent # Voids 1 1 - Exam Constitutional: No acute distress, conversant, pleasant Eyes: Anicteric sclerae, moist conjunctiva, no lid-lag, PERRLA ENMT: NC/AT,Oropharynx clear, no erythema, exudates Neck:Supple, FROM, no masses, or JVD, No carotid bruits; No thyromegaly Lungs: Coarse bibasilar crackles diminished in the bases with some dullness on the right Cardiovascular: Irregularly regular, No murmurs, gallops, or rubs no peripheral edema Abdominal: Soft Nontender, nom distended, no guarding, no rebound or rigidity, Normoactive bowel sounds No hepatomegaly, No splenomegaly, No palpable mass No abdominal wall hernia noted Skin: Normal temperature, tone, texture, turgor, No induration No subcutaneous nodules, No rash, lesions, No ulcers Extremities:No digital cyanosis No clubbing, Pedal pulses intact and symmetrical Radial pulses intact and symmetrical Normal gait and station, No calf tenderness Psychiatric: Alert and oriented to person, place and time, Appropriate affect Intact judgement Neuro: Muscles Strength 5/5 in all 4 extremities, Sensation to light touch grossly present throughout, Cranial nerves II-XII grossly intact. No focal sensory deficits - Labs CBC & Chem 7: 04/09/18 05:34 04/09/18 05:34 Labs: Abnormal Lab Results - Last 24 Hours (Table) 04/08/18 04/09/18 04/09/18 Range/Units 10:27 16:30 21:15 POC Glucose (mg/dL) 147 H 193 H (75-99) mg/dL Hemoglobin A1c 6.4 H (4.0-6.0) % Magnesium (1.6-2.3) mg/dL 04/10/18 04/10/18 04/10/18 Range/Units 05:56 06:02 11:21 POC Glucose (mg/dL) 150 H 210 H (75-99) mg/dL Hemoglobin A1c (4.0-6.0) % Magnesium 1.4 L (1.6-2.3) mg/dL Microbiology - Last 24 Hours (Table) 04/09/18 10:35 Gram Stain - Preliminary Pleural Fluid Body Fluid Culture - Preliminary 04/08/18 12:53 Blood Culture - Preliminary Blood No Growth after 24 hours Assessment and Plan (1) Dyspnea Narrative/Plan: * Secondary to pneumonia with transudative pleural effusion effusion due to underlying mitral valve disease and A. fib with RVR * Chest ultrasound confirming a 3.5 cm thickness effusion * Continue with supplemental oxygen when necessary, along with breathing treatments * Appreciated pulmonary recommendations Current Visit: Yes Status: Acute Code(s): R06.00 - DYSPNEA, UNSPECIFIED SNOMED Code(s): 743738792 (2) Pneumonia Narrative/Plan: * Patient afebrile leukocytosis * Continue current regimen with IV Levaquin and Zosyn * Chest x-ray showing no post thoracentesis complication, right basilar airspace disease * Awaiting pleural fluid cultures Current Visit: No Status: Acute Code(s): J18.9 - PNEUMONIA, UNSPECIFIED ORGANISM SNOMED Code(s): 811192580 (3) Atrial flutter with rapid ventricular response Narrative/Plan: * Continue with digoxin and metoprolol, patient's blood pressure is very borderline at this time preventing any new medications to be added to his regimen at this time * Cardiology consulted, echocardiogram showing ejection fraction of 50-55% with moderate aortic, pulmonary hypertension * Continue this diltiazem and metoprolol * Magnesium 1.4 with optimize with maximum replacement protocol * Not a candidate for anticoagulation due to recurrent/ 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 Current Visit: Yes Status: Acute Code(s): I48.92 - UNSPECIFIED ATRIAL FLUTTER SNOMED Code(s): 8416073 (4) Pleural effusion on right Current Visit: Yes Status: Acute Code(s): J90 - PLEURAL EFFUSION, NOT ELSEWHERE CLASSIFIED SNOMED Code(s): 53687565 (5) Chronic blood loss anemia Narrative/Plan: * Hemoglobin stable continue to monitor Current Visit: Yes Status: Acute Code(s): D50.0 - IRON DEFICIENCY ANEMIA SECONDARY TO BLOOD LOSS (CHRONIC) SNOMED Code(s): 985142051 (6) Hyponatremia Narrative/Plan: * Trending up continue to monitor Current Visit: Yes Status: Acute Code(s): E87.1 - HYPO-OSMOLALITY AND HYPONATREMIA SNOMED Code(s): 60132590 Plan: Continue current management Anticipated discharge 1-2 days
[2018-04-10] MEDS: SODIUM CHLORIDE 0.9% 1,000 ML IV SCH (13:17)
[2018-04-10] MEDS: LEVOFLOXACIN 750MG-D5W PMX 750 MG in DEXTROSE/WATER 1 150ML.BAG IVPB SCH (13:20)
--- NOTE | 2018-04-10 14:12 | P.PN ---
Subjective Progress Note Date: 04/10/18 This is a 83-year-old gentleman admitted to the hospital with shortness of breath exertional with associated cough which has been going on for the past several weeks prior to his admission. Patient was found to be in typical atrial flutter with rapid ventricular response, was also noted to have pleural effusions. He has diabetes, hyperlipidemia, prior history of smoking. In the past it has been documented that the patient is not a candidate for anticoagulation. Patient did go undergo a thoracentesis yesterday, 400 mils of turbid dark yellow fluid was removed. Echocardiogram with Doppler study was performed which revealed an ejection fraction of 50-55%, severe mitral regurg, severe tricuspid regurg, moderate pulmonary hypertension. Blood pressure this morning 98/60 with a heart rate of 108, 100% on 2 L of oxygen. Patient is currently on Lanoxin 125 g daily along with metoprolol 12-1/2 mg by mouth every 8 hour. Objective - Vital Signs Vital signs: Vital Signs Temp 97.7 F 04/10/18 08:00 Pulse 109 H 04/10/18 11:44 Resp 18 04/10/18 08:00 BP 98/67 04/10/18 08:00 Pulse Ox 100 04/10/18 08:00 Intake & Output 04/09/18 04/10/18 04/10/18 18:59 06:59 18:59 Intake Total 437.75 50 120 Balance 437.75 50 120 Weight 74.1 kg 73.2 kg 73.2 kg Intake: Intake, IV Titration 77.75 50 Amount Diltiazem 50 mg In Sodium 77.75 50 Chloride 0.9% 40 ml @ 5 MG/HR 5 mls/hr IV .Q10H [facility] Rx#:[id number] Oral 360 120 Other: Voiding Method Incontinent # Voids 1 1 - Exam PHYSICAL EXAMINATION: GENERAL: 83-year-old gentleman in no acute distress at the time of my examination HEENT: Head is atraumatic, normocephalic. Pupils equal, round. Sclera anicteric. Conjunctiva are clear. Mucous membranes of the mouth are moist. Neck is supple. There is no elevated jugular venous pressure.] bruit is heard. HEART EXAMINATION: Heart S1-S2 irregularly irregular CHEST EXAMINATION: Lungs are clear with diminished air entry to the bases, right greater than left. ABDOMEN: Soft, nontender. Bowel sounds are heard. No organomegaly noted. EXTREMITIES: 2+ peripheral pulses with no evidence of peripheral edema and no calf tenderness noted. NEUROLOGIC patient is awake, alert and oriented ?-3. . - Labs CBC & Chem 7: 04/09/18 05:34 04/09/18 05:34 Labs: Abnormal Lab Results - Last 24 Hours (Table) 04/08/18 04/09/18 04/09/18 Range/Units 10:27 16:30 21:15 POC Glucose (mg/dL) 147 H 193 H (75-99) mg/dL Hemoglobin A1c 6.4 H (4.0-6.0) % Magnesium (1.6-2.3) mg/dL 04/10/18 04/10/18 04/10/18 Range/Units 05:56 06:02 11:21 POC Glucose (mg/dL) 150 H 210 H (75-99) mg/dL Hemoglobin A1c (4.0-6.0) % Magnesium 1.4 L (1.6-2.3) mg/dL Microbiology - Last 24 Hours (Table) 04/09/18 10:35 Gram Stain - Preliminary Pleural Fluid Body Fluid Culture - Preliminary 04/08/18 12:53 Blood Culture - Preliminary Blood No Growth after 24 hours Assessment and Plan Plan: Assessment and plan #1. Dyspnea likely related to right pleural effusion, status post thoracentesis #2. A. fib RVR, #3. Chronic, persistent A. fib, documented contraindication to anticoagulation #4. Chronic obstructive pulmonary disease #5. History of thyroid cancer with thyroidectomy #6. Hypothyroidism #7. History of lower GI bleed secondary to radiation proctitis #8. Chronic anemia #9. Daily EtOH #10. Diabetes mellitus type 2 #11. Chronic And ongoing nicotine dependence Plan Cardiology's perspective, we will increase the dose of 12.5mg beta cole to a every 6 hourly dose. Continue the rest of the patient's medication. DNP note has been reviewed, I agree with a documented findings and plan of care. Patient was seen and examined.
[2018-04-10 16:27] LABS: Glucose,Whole Blood 246 mg/dL (75-99)
[2018-04-10] MEDS ORDERED: LORazepam 2 MG/ML INJ IV PRN ×3 (17:17)
[2018-04-10] MEDS ORDERED: THIAMINE 100 MG/ML 2 ML VIAL IM STA (17:17)
[2018-04-10] MEDS: MELATONIN 5 MG TABLET PO SCH (20:05)
[2018-04-10 21:07] LABS: Glucose,Whole Blood 216 mg/dL (75-99)
[2018-04-10 22:32] LABS: Glucose,Whole Blood 131 mg/dL (75-99)
[2018-04-11] MEDS: METOPROLOL TARTRATE 12.5 MG TAB PO SCH (05:55)
[2018-04-11] MEDS: LEVOTHYROXINE 100 MCG TAB PO SCH (05:55)
[2018-04-11 06:24] LABS: Glucose,Whole Blood 141 mg/dL (75-99)
[2018-04-11] MEDS: INSULIN ASPART 100 UNIT/ML 1 ML 10 ML VIAL SQ SCH ×4 (06:25→21:46)
[2018-04-11 06:42] LABS: Anisocytosis Slight; Basophils % (A) 0 %; Eosinophils # (A) 0.1 k/uL (0-0.7); Eosinophils % (A) 2 %; HCT 26.3 % (39.0-53.0); Hypochromasia Moderate; Lymphocytes # (A) 0.7 k/uL (1.0-4.8); Lymphocytes % (A) 14 %; MCH 27.8 pg (25.0-35.0); MCHC 30.4 g/dL (31.0-37.0); MCV 91.5 fL (80.0-100.0); Mean Platelet Volume 7.5; Monocytes # (A) 0.3 k/uL (0-1.0); Monocytes % (A) 7 %; Neutrophils # (A) 3.6 k/uL (1.3-7.7); Neutrophils % (A) 76 %; Platelet Count 371 k/uL (150-450); RBC 2.87 m/uL (4.30-5.90); RDW 19.4 % (11.5-15.5); WBC 4.7 k/uL (3.8-10.6)
[2018-04-11 06:50] LABS: ALT 19 U/L (21-72); AST 18 U/L (17-59); Albumin 2.8 g/dL (3.5-5.0); Alkaline Phosphatase 80 U/L (38-126); Anion Gap 13 mmol/L; Blood Urea Nitrogen 14 mg/dL (9-20); Calcium 8.3 mg/dL (8.4-10.2); Carbon Dioxide 23 mmol/L (22-30); Chloride 100 mmol/L (98-107); Glucose 119 mg/dL (74-99); Magnesium 1.4 mg/dL (1.6-2.3); Potassium 3.6 mmol/L (3.5-5.1); Sodium 136 mmol/L (137-145); Total Bilirubin 0.5 mg/dL (0.2-1.3); Total Protein 5.8 g/dL (6.3-8.2)
[2018-04-11] MEDS: SYMBICORT 160-4.5 MCG INHALER INHALATION SCH ×2 (07:02→20:25)
[2018-04-11] MEDS: IPRATROPIUM-ALBUTEROL 3 ML NEB INHALATION SCH ×4 (07:02→20:25)
--- NOTE | 2018-04-11 10:56 | P.PN ---
Subjective Progress Note Date: 04/11/18 Patient in better spirits today, feeling much better today woke up feeling close to his baseline. Still having episodes of intermittent confusion, history of alcoholism and no signs of delirium tremens. Heart rate much improved today, blood pressure still stable Objective - Vital Signs Vital signs: Vital Signs Temp 96.6 F L 04/11/18 08:00 Pulse 110 H 04/11/18 08:00 Resp 18 04/11/18 08:00 BP 98/62 04/11/18 08:00 Pulse Ox 100 04/11/18 08:00 Intake & Output 04/10/18 04/11/18 04/11/18 18:59 06:59 18:59 Intake Total 476 420 720 Balance 476 420 720 Weight 73.2 kg 73 kg Intake: IV 420 Piperacillin-Tazobactam 3 100 .375 gm In Dextrose/Water 1 50ml.bag @ 12.5 mls/hr IVPB Q8HR [facility] Rx#: [id number] Sodium Chloride 0.9% 1, 320 000 ml @ 20 mls/hr IV . Q24H [facility] Rx#:[id number] Oral 476 720 Other: Voiding Method Incontinent Incontinent # Voids 2 - Exam Constitutional: No acute distress, conversant, pleasant Eyes: Anicteric sclerae, moist conjunctiva, no lid-lag, PERRLA ENMT: NC/AT,Oropharynx clear, no erythema, exudates Neck:Supple, FROM, no masses, or JVD, No carotid bruits; No thyromegaly Lungs: Expiratory wheezes auscultated currently with great sats on room air CV: regularly regular, No murmurs, gallops, or rubs no peripheral edema Abdominal: Soft Nontender, nom distended, no guarding, no rebound or rigidity, Normoactive bowel sounds No hepatomegaly, No splenomegaly, No palpable mass No abdominal wall hernia noted Skin: Normal temperature, tone, texture, turgor, No induration No subcutaneous nodules, No rash, lesions, No ulcers Extremities:No digital cyanosis No clubbing, Pedal pulses intact and symmetrical Radial pulses intact and symmetrical Normal gait and station, No calf tenderness Psychiatric: Alert and oriented to person, place and time, Appropriate affect Intact judgement Neuro: Muscles Strength 5/5 in all 4 extremities, Sensation to light touch grossly present throughout, Cranial nerves II-XII grossly intact. No focal sensory deficits - Labs CBC & Chem 7: 04/11/18 05:41 04/11/18 05:41 Labs: Abnormal Lab Results - Last 24 Hours (Table) 04/08/18 04/10/18 04/10/18 Range/Units 10:27 11:21 16:25 RBC (4.30-5.90) m/uL Hgb (13.0-17.5) gm/dL Hct (39.0-53.0) % MCHC (31.0-37.0) g/dL RDW (11.5-15.5) % Lymphocytes # (1.0-4.8) k/uL Sodium (137-145) mmol/L Glucose (74-99) mg/dL POC Glucose (mg/dL) 210 H 246 H (75-99) mg/dL Hemoglobin A1c 6.4 H (4.0-6.0) % Calcium (8.4-10.2) mg/dL Magnesium (1.6-2.3) mg/dL ALT (21-72) U/L Total Protein (6.3-8.2) g/dL Albumin (3.5-5.0) g/dL 04/10/18 04/10/18 04/11/18 Range/Units 21:05 22:20 05:41 RBC 2.87 L (4.30-5.90) m/uL Hgb 8.0 L (13.0-17.5) gm/dL Hct 26.3 L (39.0-53.0) % MCHC 30.4 L (31.0-37.0) g/dL RDW 19.4 H (11.5-15.5) % Lymphocytes # 0.7 L (1.0-4.8) k/uL Sodium (137-145) mmol/L Glucose (74-99) mg/dL POC Glucose (mg/dL) 216 H 131 H (75-99) mg/dL Hemoglobin A1c (4.0-6.0) % Calcium (8.4-10.2) mg/dL Magnesium (1.6-2.3) mg/dL ALT (21-72) U/L Total Protein (6.3-8.2) g/dL Albumin (3.5-5.0) g/dL 04/11/18 04/11/18 Range/Units 05:41 06:23 RBC (4.30-5.90) m/uL Hgb (13.0-17.5) gm/dL Hct (39.0-53.0) % MCHC (31.0-37.0) g/dL RDW (11.5-15.5) % Lymphocytes # (1.0-4.8) k/uL Sodium 136 L (137-145) mmol/L Glucose 119 H (74-99) mg/dL POC Glucose (mg/dL) 141 H (75-99) mg/dL Hemoglobin A1c (4.0-6.0) % Calcium 8.3 L (8.4-10.2) mg/dL Magnesium 1.4 L (1.6-2.3) mg/dL ALT 19 L (21-72) U/L Total Protein 5.8 L (6.3-8.2) g/dL Albumin 2.8 L (3.5-5.0) g/dL Microbiology - Last 24 Hours (Table) 04/09/18 10:35 Gram Stain - Preliminary Pleural Fluid Body Fluid Culture - Preliminary 04/08/18 12:53 Blood Culture - Preliminary Blood No Growth after 48 hours Assessment and Plan (1) Dyspnea Narrative/Plan: * Multifactorial Secondary to pneumonia with transudative pleural effusion effusion due to underlying mitral valve disease and A. fib with RVR superimposed on a mild COPD exacerbation * Chest ultrasound confirming a 3.5 cm thickness effusion * Continue with supplemental oxygen when necessary, along with breathing treatments * Appreciated pulmonary recommendations Current Visit: Yes Status: Acute Code(s): R06.00 - DYSPNEA, UNSPECIFIED SNOMED Code(s): 026782089 (2) Pneumonia Narrative/Plan: * Patient afebrile leukocytosis * We'll continue treatment with oral Levaquin * Chest x-ray showing no post thoracentesis complication, right basilar airspace disease * Awaiting pleural fluid cultures Current Visit: No Status: Acute Code(s): J18.9 - PNEUMONIA, UNSPECIFIED ORGANISM SNOMED Code(s): 642617868 (3) Atrial flutter with rapid ventricular response Narrative/Plan: * Continue with digoxin and metoprolol * Cardiology consulted, echocardiogram showing ejection fraction of 50-55% with moderate aortic, pulmonary hypertension * Continue this diltiazem and metoprolol * Magnesium 1.4 with optimize with maximum replacement protocol * Not a candidate for anticoagulation due to recurrent/ 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 Current Visit: Yes Status: Acute Code(s): I48.92 - UNSPECIFIED ATRIAL FLUTTER SNOMED Code(s): 9592619 (4) Pleural effusion on right Current Visit: Yes Status: Acute Code(s): J90 - PLEURAL EFFUSION, NOT ELSEWHERE CLASSIFIED SNOMED Code(s): 74181438 (5) Chronic blood loss anemia Narrative/Plan: * Hemoglobin stable continue to monitor Current Visit: Yes Status: Acute Code(s): D50.0 - IRON DEFICIENCY ANEMIA SECONDARY TO BLOOD LOSS (CHRONIC) SNOMED Code(s): 172445475 (6) Hyponatremia Narrative/Plan: * Normalizing nicely Current Visit: Yes Status: Acute Code(s): E87.1 - HYPO-OSMOLALITY AND HYPONATREMIA SNOMED Code(s): 18882442 (7) Hypomagnesemia Narrative/Plan: * Magnesium still low at 1.4 despite being on magnesium replacement protocol * Initiated mannitol oxide 400 mg by mouth twice a day Current Visit: Yes Status: Acute Code(s): E83.42 - HYPOMAGNESEMIA SNOMED Code(s): 748142501 (8) COPD exacerbation Narrative/Plan: * Mild COPD exacerbation continue with breathing treatments * Initiated steroid burst with prednisone 40 mg daily starting today Current Visit: Yes Status: Acute Code(s): J44.1 - CHRONIC OBSTRUCTIVE PULMONARY DISEASE W (ACUTE) EXACERBATION SNOMED Code(s): 936104008 Plan: * Patient feeling much better today does have a mild COPD exacerbation and electrolyte abnormalities with hypomagnesemia * If cleared by cardiology patient can be transferred to medical floor anticipate discharge tomorrow
[2018-04-11 11:26] LABS: Glucose,Whole Blood 251 mg/dL (75-99)
[2018-04-11] MEDS: MAGNESIUM OXIDE 400 MG TAB PO SCH ×2 (11:39→21:47)
[2018-04-11] MEDS: FUROSEMIDE 40 MG TAB PO SCH (11:39)
[2018-04-11] MEDS: predniSONE 20 MG TAB PO SCH (11:39)
[2018-04-11] MEDS: LEVOFLOXACIN 750 MG TAB PO SCH (11:39)
[2018-04-11] MEDS: NICOTINE 21MG/24HR PATCH TRANSDERM SCH (11:39)
[2018-04-11] MEDS: DIGOXIN 125 MCG TAB PO SCH (11:39)
[2018-04-11] MEDS: THIAMINE 100 MG TAB PO SCH ×2 (11:39→17:03)
[2018-04-11] MEDS: PANTOPRAZOLE 40 MG/10 ML VIAL IV SCH (11:41)
[2018-04-11] MEDS: PIPERACILLIN-TAZOBACTAM 3.375 GM in DEXTROSE/WATER 1 50ML.BAG IVPB SCH (11:59)
--- NOTE | 2018-04-11 12:07 | P.PN ---
Subjective Progress Note Date: 04/11/18 This is a 83-year-old gentleman admitted to the hospital with shortness of breath exertional with associated cough which has been going on for the past several weeks prior to his admission. Patient was found to be in typical atrial flutter with rapid ventricular response, was also noted to have pleural effusions. He has diabetes, hyperlipidemia, prior history of smoking. In the past it has been documented that the patient is not a candidate for anticoagulation. Patient did go undergo a thoracentesis yesterday, 400 mils of turbid dark yellow fluid was removed. Echocardiogram with Doppler study was performed which revealed an ejection fraction of 50-55%, severe mitral regurg, severe tricuspid regurg, moderate pulmonary hypertension. Blood pressure this morning 98/60 with a heart rate of 108, 100% on 2 L of oxygen. Patient is currently on Lanoxin 125 g daily along with metoprolol 12-1/2 mg by mouth every 8 hour. 04/11/2018 Patient seen and examined this morning, heart rate this morning under much better control throughout the night and this morning, time of my examination around noon today heart rate up in the 120s. Patient is however quite agitated speaking with his daughter on the phone, blood pressure 100/60, we will attempt to increase the metoprolol to 25 mg 3 times a day. Objective - Vital Signs Vital signs: Vital Signs Temp 96.6 F L 04/11/18 08:00 Pulse 120 H 04/11/18 11:15 Resp 18 04/11/18 08:00 BP 98/62 04/11/18 08:00 Pulse Ox 100 04/11/18 08:00 Intake & Output 04/10/18 04/11/18 04/11/18 18:59 06:59 18:59 Intake Total 476 420 720 Balance 476 420 720 Weight 73.2 kg 73 kg Intake: IV 420 Piperacillin-Tazobactam 3 100 .375 gm In Dextrose/Water 1 50ml.bag @ 12.5 mls/hr IVPB Q8HR [facility] Rx#: [id number] Sodium Chloride 0.9% 1, 320 000 ml @ 20 mls/hr IV . Q24H [facility] Rx#:[id number] Oral 476 720 Other: Voiding Method Incontinent Incontinent # Voids 2 - Exam PHYSICAL EXAMINATION: GENERAL: 83-year-old gentleman in no acute distress at the time of my examination HEENT: Head is atraumatic, normocephalic. Pupils equal, round. Sclera anicteric. Conjunctiva are clear. Mucous membranes of the mouth are moist. Neck is supple. There is no elevated jugular venous pressure.] bruit is heard. HEART EXAMINATION: Heart S1-S2 irregularly irregular CHEST EXAMINATION: Lungs are clear with diminished air entry to the bases, right greater than left. ABDOMEN: Soft, nontender. Bowel sounds are heard. No organomegaly noted. EXTREMITIES: 2+ peripheral pulses with no evidence of peripheral edema and no calf tenderness noted. NEUROLOGIC patient is awake, alert and oriented ?-3. . - Labs CBC & Chem 7: 04/11/18 05:41 04/11/18 05:41 Labs: Abnormal Lab Results - Last 24 Hours (Table) 04/10/18 04/10/18 04/10/18 Range/Units 16:25 21:05 22:20 RBC (4.30-5.90) m/uL Hgb (13.0-17.5) gm/dL Hct (39.0-53.0) % MCHC (31.0-37.0) g/dL RDW (11.5-15.5) % Lymphocytes # (1.0-4.8) k/uL Sodium (137-145) mmol/L Glucose (74-99) mg/dL POC Glucose (mg/dL) 246 H 216 H 131 H (75-99) mg/dL Calcium (8.4-10.2) mg/dL Magnesium (1.6-2.3) mg/dL ALT (21-72) U/L Total Protein (6.3-8.2) g/dL Albumin (3.5-5.0) g/dL 04/11/18 04/11/18 04/11/18 Range/Units 05:41 05:41 06:23 RBC 2.87 L (4.30-5.90) m/uL Hgb 8.0 L (13.0-17.5) gm/dL Hct 26.3 L (39.0-53.0) % MCHC 30.4 L (31.0-37.0) g/dL RDW 19.4 H (11.5-15.5) % Lymphocytes # 0.7 L (1.0-4.8) k/uL Sodium 136 L (137-145) mmol/L Glucose 119 H (74-99) mg/dL POC Glucose (mg/dL) 141 H (75-99) mg/dL Calcium 8.3 L (8.4-10.2) mg/dL Magnesium 1.4 L (1.6-2.3) mg/dL ALT 19 L (21-72) U/L Total Protein 5.8 L (6.3-8.2) g/dL Albumin 2.8 L (3.5-5.0) g/dL 04/11/18 Range/Units 11:25 RBC (4.30-5.90) m/uL Hgb (13.0-17.5) gm/dL Hct (39.0-53.0) % MCHC (31.0-37.0) g/dL RDW (11.5-15.5) % Lymphocytes # (1.0-4.8) k/uL Sodium (137-145) mmol/L Glucose (74-99) mg/dL POC Glucose (mg/dL) 251 H (75-99) mg/dL Calcium (8.4-10.2) mg/dL Magnesium (1.6-2.3) mg/dL ALT (21-72) U/L Total Protein (6.3-8.2) g/dL Albumin (3.5-5.0) g/dL Microbiology - Last 24 Hours (Table) 04/09/18 10:35 Gram Stain - Preliminary Pleural Fluid Body Fluid Culture - Preliminary 04/08/18 12:53 Blood Culture - Preliminary Blood No Growth after 48 hours Assessment and Plan Plan: Assessment and plan #1. Dyspnea likely related to right pleural effusion, status post thoracentesis #2. A. fib RVR, #3. Chronic, persistent A. fib, documented contraindication to anticoagulation #4. Chronic obstructive pulmonary disease #5. History of thyroid cancer with thyroidectomy #6. Hypothyroidism #7. History of lower GI bleed secondary to radiation proctitis #8. Chronic anemia #9. Daily EtOH #10. Diabetes mellitus type 2 #11. Chronic And ongoing nicotine dependence Plan Cardiology's perspective, we will increase the dose of beta cole to 25 mg tid. Continue the rest of the patient's medication. DNP note has been reviewed, I agree with a documented findings and plan of care. Patient was seen and examined.
--- NOTE | 2018-04-11 12:26 | P.PN ---
Subjective Progress Note Date: 04/11/18 Principal diagnosis: Right pleural effusion, possibly parapneumonic in nature This is a 83-year-old white male patient who presented to the emergency department on 04/08/2018, peripheral edema. Patient states he has been having episodes of paroxysmal nocturnal dyspnea waking up in the middle of the night being short of breath. Denied any fever or chills, and he is able to bring up small amount of clear sputum, no chest pain. Patient has underlying history of COPD, and he is a current smoker, smoking a pack and half a day. Patient also has history of daily EtOH intake, drinking half a pint of vodka on a daily basis. He resides in the nursing home home and for aggression. As medical history is positive for A. fib, diabetes mellitus, GERD/reflux, hypertension, osteoarthritis, previous episodes of pneumonia, prostate disorder, hypothyroidism, skin cancer would removal, prostate cancer status post radiation , lower GI bleed. Chest x-ray was completed and showed right basilar infiltrate with associated effusion. Ultrasound chest was completed, and showed 8.3 right pleural effusion pocket. Labs were negative for any signs of leukocytosis, WBC 7.3, hemoglobin is 8.0, INR is 1.2, sodium is 129, CO2 is 18, BUN is 14, creatinine 0.60. Troponin and cardiac enzymes were negative 1, proBNP was 2780. Patient is not anticoagulated due to his history of lower GI bleeding. He remains on Cardizem drip for rate control, and cardiology is following. We are asked to see the patient in consultation in regards to the possible right lower lobe pneumonia, and pleural effusion. Patient was given a dose of Zithromax and Rocephin in the emergency department, that were later switched to Zosyn and Levaquin. Patient was reevaluated today on 04/10/2018, feeling better, asking if he could be discharged home. However, final report on the pleural effusion is pending, it is likely parapneumonic in nature, although the protein is 2.6, and LDH is 99 , this is transudative effusion considering his serum protein is 6.1. However his echocardiogram showed good LV function, but clearly the patient has severe mitral regurgitation, and moderate pulmonary hypertension. Patient did have atrial flutter on admission, it is not surprising that the fluid may be actually cardiac in nature. But again based on the chemistry of the pleural effusion, this is a transudative pleural effusion, very unlikely to be parapneumonic or to be malignant in nature. Patient was seen again today 04/11/2018 in follow-up on the selective care unit. He is somewhat agitated and not willing to answer many questions. He does see 9 any worsening shortness of breath today as compared to yesterday. He is maintaining good O2 saturations up to 100% on room air. He's been afebrile. Slightly tachycardic. Fluid cytology from the thoracentesis is still pending. Objective - Vital Signs Vital signs: Vital Signs Temp 97.0 F L 04/11/18 12:00 Pulse 115 H 04/11/18 12:00 Resp 18 04/11/18 12:00 BP 95/61 04/11/18 12:00 Pulse Ox 98 04/11/18 12:00 Intake & Output 04/10/18 04/11/18 04/11/18 18:59 06:59 18:59 Intake Total 476 420 720 Balance 476 420 720 Weight 73.2 kg 73 kg Intake: IV 420 Piperacillin-Tazobactam 3 100 .375 gm In Dextrose/Water 1 50ml.bag @ 12.5 mls/hr IVPB Q8HR [facility] Rx#: [id number] Sodium Chloride 0.9% 1, 320 000 ml @ 20 mls/hr IV . Q24H [facility] Rx#:[id number] Oral 476 720 Other: Voiding Method Incontinent Incontinent # Voids 2 - Exam GENERAL EXAM: Alert, pale 83-year-old white male, comfortable in no apparent distress. HEAD: Normocephalic/atraumatic. EYES: Normal reaction of pupils, equal size. Conjunctiva pink, sclera white. NOSE: Clear with pink turbinates. THROAT: No erythema or exudates. NECK: No masses, no JVD, no thyroid enlargement, no adenopathy. CHEST: No chest wall deformity. Symmetrical expansion. LUNGS: Clear bilaterally, no crackles or rhonchi or wheezes. CVS: Regular rate and rhythm, normal S1 and S2, no gallops, 3/6 systolic murmur thought the precordium. ABDOMEN: Soft, nontender. No hepatosplenomegaly, normal bowel sounds, no guarding or rigidity. EXTREMITIES: No clubbing, +1 edema in bilateral lower extremities, no cyanosis, 2+ pulses and upper and lower extremities. MUSCULOSKELETAL: Muscle strength and tone normal. Patient has dressing on the right hand for a recent skin cancer removal SPINE: No scoliosis or deformity SKIN: No rashes CENTRAL NERVOUS SYSTEM: Alert and oriented -3. No focal deficits, tone is normal in all 4 extremities. PSYCHIATRIC: Alert and oriented -3. Appropriate affect. Intact judgment and insight. - Labs CBC & Chem 7: 04/11/18 05:41 04/11/18 05:41 Labs: Abnormal Lab Results - Last 24 Hours (Table) 04/10/18 04/10/18 04/10/18 Range/Units 16:25 21:05 22:20 RBC (4.30-5.90) m/uL Hgb (13.0-17.5) gm/dL Hct (39.0-53.0) % MCHC (31.0-37.0) g/dL RDW (11.5-15.5) % Lymphocytes # (1.0-4.8) k/uL Sodium (137-145) mmol/L Glucose (74-99) mg/dL POC Glucose (mg/dL) 246 H 216 H 131 H (75-99) mg/dL Calcium (8.4-10.2) mg/dL Magnesium (1.6-2.3) mg/dL ALT (21-72) U/L Total Protein (6.3-8.2) g/dL Albumin (3.5-5.0) g/dL 04/11/18 04/11/18 04/11/18 Range/Units 05:41 05:41 06:23 RBC 2.87 L (4.30-5.90) m/uL Hgb 8.0 L (13.0-17.5) gm/dL Hct 26.3 L (39.0-53.0) % MCHC 30.4 L (31.0-37.0) g/dL RDW 19.4 H (11.5-15.5) % Lymphocytes # 0.7 L (1.0-4.8) k/uL Sodium 136 L (137-145) mmol/L Glucose 119 H (74-99) mg/dL POC Glucose (mg/dL) 141 H (75-99) mg/dL Calcium 8.3 L (8.4-10.2) mg/dL Magnesium 1.4 L (1.6-2.3) mg/dL ALT 19 L (21-72) U/L Total Protein 5.8 L (6.3-8.2) g/dL Albumin 2.8 L (3.5-5.0) g/dL 04/11/18 Range/Units 11:25 RBC (4.30-5.90) m/uL Hgb (13.0-17.5) gm/dL Hct (39.0-53.0) % MCHC (31.0-37.0) g/dL RDW (11.5-15.5) % Lymphocytes # (1.0-4.8) k/uL Sodium (137-145) mmol/L Glucose (74-99) mg/dL POC Glucose (mg/dL) 251 H (75-99) mg/dL Calcium (8.4-10.2) mg/dL Magnesium (1.6-2.3) mg/dL ALT (21-72) U/L Total Protein (6.3-8.2) g/dL Albumin (3.5-5.0) g/dL Microbiology - Last 24 Hours (Table) 04/09/18 10:35 Gram Stain - Preliminary Pleural Fluid Body Fluid Culture - Preliminary 04/08/18 12:53 Blood Culture - Preliminary Blood No Growth after 48 hours Assessment and Plan Assessment: Impression: #1. Dyspnea likely related to right pleural effusion, considering the pleural effusion is transudative, this is cardiac in nature, related to his mitral valve disease and A. fib/RVR. Very unlikely to be related to pneumonia or related to malignancy. LDH and protein on the fluid is relatively low pointing to transudative pleural effusion. #2. A. fib RVR #3. Chronic A. fib, patient not on any anticoagulation for history of GI bleeding #4. Chronic obstructive pulmonary disease #5. History of thyroid cancer with thyroidectomy #6. Hypothyroidism #7. History of lower GI bleed secondary to radiation proctitis #8. Chronic anemia #9. Daily EtOH #10. Diabetes mellitus type 2 #11. Chronic And ongoing nicotine dependence Recommendation: The patient was seen and evaluated by Dr. Esteban. He is stable from the pulmonary standpoint. Fluid pathology is still pending. Most likely transudative in nature. Continue with his current treatment plan. Probable discharge in the a.m. We'll continue to follow. I, the cosigning physician, performed a history & physical examination of the patient. Lungs sounds with few scattered rhonchi, crackles in the posterior bases. Maintaining good O2 saturations in the 90s on room air. I discussed the assessment and plan of care with my nurse practitioner, Radha Champion. I attest to the above note as dictated by her.
[2018-04-11 16:38] LABS: Glucose,Whole Blood 370 mg/dL (75-99)
[2018-04-11] MEDS: SODIUM CHLORIDE 0.9% 1,000 ML IV SCH (17:30)
[2018-04-11] MEDS: METOPROLOL TARTRATE 25 MG TAB PO SCH ×2 (18:22→21:47)
[2018-04-11 21:08] LABS: Glucose,Whole Blood 405 mg/dL (75-99)
[2018-04-11 21:23] LABS: Glucose,Whole Blood 386 mg/dL (75-99)
[2018-04-11] MEDS: MELATONIN 5 MG TABLET PO SCH (21:47)
[2018-04-11 23:26] VITALS: RESP 16
[2018-04-12] MEDS: LEVOTHYROXINE 100 MCG TAB PO SCH (06:01)
[2018-04-12 06:28] LABS: Glucose,Whole Blood 229 mg/dL (75-99)
[2018-04-12] MEDS: INSULIN ASPART 100 UNIT/ML 1 ML 10 ML VIAL SQ SCH (06:32)
[2018-04-12] MEDS ORDERED: PANTOPRAZOLE 40 MG TABLET PO SCH (07:30)
[2018-04-12] MEDS: IPRATROPIUM-ALBUTEROL 3 ML NEB INHALATION SCH (08:43)
[2018-04-12] MEDS: SYMBICORT 160-4.5 MCG INHALER INHALATION SCH (08:43)
[2018-04-12] MEDS: MAGNESIUM OXIDE 400 MG TAB PO SCH (08:44)
[2018-04-12] MEDS: predniSONE 20 MG TAB PO SCH (08:44)
[2018-04-12] MEDS: DIGOXIN 125 MCG TAB PO SCH (08:44)
[2018-04-12] MEDS: METOPROLOL TARTRATE 25 MG TAB PO SCH (08:44)
[2018-04-12] MEDS: NICOTINE 21MG/24HR PATCH TRANSDERM SCH (08:44)
[2018-04-12] MEDS: LEVOFLOXACIN 750 MG TAB PO SCH (08:44)
[2018-04-12] MEDS: THIAMINE 100 MG TAB PO SCH (08:45)
[2018-04-12] MEDS: FUROSEMIDE 40 MG TAB PO SCH (08:45)
[2018-04-12 08:50] LABS: ALT 13 U/L (21-72); AST 17 U/L (17-59); Alkaline Phosphatase 80 U/L (38-126); Anion Gap 13 mmol/L; Blood Urea Nitrogen 17 mg/dL (9-20); Calcium 8.7 mg/dL (8.4-10.2); Carbon Dioxide 24 mmol/L (22-30); Chloride 100 mmol/L (98-107); Glucose 253 mg/dL (74-99); Magnesium 1.4 mg/dL (1.6-2.3); Potassium 3.5 mmol/L (3.5-5.1); Sodium 137 mmol/L (137-145); Total Bilirubin 0.4 mg/dL (0.2-1.3); Total Protein 6.2 g/dL (6.3-8.2)
--- NOTE | 2018-04-12 10:16 | P.DS ---
Providers Date of admission: 04/08/18 12:19 Expected date of discharge: 04/12/18 Attending physician: Karel Beltran MD Consults: 04/08/18 12:20 Consult Physician Routine Consulting Provider: Ellis Esteban Consult Reason/Comments: Parapnuemonic effusion Do you want consulting provider notified?: Yes Consult Physician Routine Consulting Provider: Geovany Aguillon Consult Reason/Comments: Afib Aflutter Do you want consulting provider notified?: Yes Primary care physician: Jesse Gee Hospital Course: Discharge Diagnosis: Pneumonia, community-acquired and complicated with history of COPD and diabetes Acute exacerbation of COPD A. fib with rapid ventricular response Transudative Pleural effusion- Culture and pathology still pending on sample Chronic anemia Hyponatremia secondary to dehydration Tobacco abuse Chronic alcohol use Essential hypertension Hospital Course: Patient is an 83-year-old male with a past medical history of A. fib, COPD, diabetes mellitus type 2 well-controlled with A1c of 6.4 on oral medications, and hypertension who presented to the ER with complaints of shortness of breath. He underwent an extensive evaluation and was ultimately found to have a right-sided pleural effusion, probable pneumonia, and A. fib with RVR. He was started on Rocephin and Zithromax. He was placed on a Cardizem drip for rate control. He was admitted to the selective care unit and pulmonary and cardiology were consulted. He had been determined not to be a candidate for anticoagulation secondary to proctitis and prior GI bleed. He underwent a thoracentesis on 04/09. His culture and pathology reports from thoracentesis are still pending. After thora he continued to have a right sided pneumonia. His antibiotics were transitioned to Levaquin and Zosyn. He continued to improve daily. His medications were adjusted by cardiology as his rate was difficult to control. He ultimately is on metoprolol 25 mg 3 times daily. He will also complete a course of Levaquin. I told him he should have a repeat chest x-ray in approximately one week to ensure that his pneumonia clears. He was also started on a short burst of prednisone for treatment of acute exacerbation of COPD. He was seen by PT and cleared to return to prior activity level. He was determined stable for discharge. He will follow-up with Dr. Gee in 3-5 days, Dr. Aguillon in 1-2 weeks, and Dr. Allen in 1-2 weeks. Patient seen and examined at bedside. He is feeling back to 100%. He denies any chest pain, shortness of breath, or wheezing. Vital signs reviewed and stable. General: non toxic, no distress, appears at stated age Derm: warm, dry Head: atraumatic, normocephalic, symmetric Eyes: EOMI, no lid lag, anicteric sclera Mouth: no lip lesion, mucus membranes moist Cardiovascular: S1S2 reg, no murmur, positive posterior tibial pulse bilateral, Lungs: CTA bilateral, no rhonchi, no rales , no accessory muscle use Abdominal: soft, nontender to palpation, no guarding, no appreciable organomegaly Ext: no gross muscle atrophy, no edema, no contractures Neuro: CN II-XI grossly intact, no focal neuro deficits Psych: Alert, oriented, appropriate affect A total of 35 minutes of time were spent preparing this complex discharge summary . Pertinent Studies: Echocardiogram and gram, severe valvular disease, ejection fraction 50-55% Chest x-ray right basilar infiltrate Chest x-ray on admission-worsening right basilar infiltrate with associated effusion Procedures: Thoracentesis on 04/09 with removal of 400 MLS of fluid from the right. Patient Condition at Discharge: Stable Plan - Discharge Summary Discharge Rx Participant: No New Discharge Prescriptions: New Levofloxacin [Levaquin] 750 mg PO DAILY #2 tab Metoprolol Tartrate [Lopressor] 25 mg PO TID #90 tab predniSONE 40 mg PO DAILY #6 tab Discontinued Metoprolol Tartrate [Lopressor] 12.5 mg PO BID No Action Budesonide-Formot 160-4.5 Mcg [Symbicort 160-4.5 Mcg Inhaler] 2 puff INHALATION RT-BID #1 inhaler Digoxin [Lanoxin] 125 mcg PO DAILY #30 tab Albuterol Inhaler [Ventolin Hfa Inhaler] 1 - 2 puff INHALATION RT-QID #0 Ipratropium-Albuterol Nebulize [Duoneb 0.5 mg-3 mg/3 ml Soln] 3 ml INHALATION RT-Q4H PRN ampul.neb PRN Reason: Shortness Of Breath Or Wheezing metFORMIN HCL [Glucophage] 1,000 mg PO DAILY glipiZIDE [Glucotrol XL] 2.5 mg PO DAILY Umeclidinium [place] [Incruse Ellipta] 1 puff INHALATION RT-DAILY Levothyroxine Sodium [Synthroid] 100 mcg PO DAILY Ipratropium [place] [Atrovent Hfa] 2 puff INHALATION RT-QID Furosemide [Lasix] 40 mg PO DAILY Discharge Medication List Budesonide-Formot 160-4.5 Mcg [Symbicort 160-4.5 Mcg Inhaler] 2 puff INHALATION RT-BID #1 inhaler 10/27/16 [Rx] Albuterol Inhaler [Ventolin Hfa Inhaler] 1 - 2 puff INHALATION RT-QID #0 [Rx] Digoxin [Lanoxin] 125 mcg PO DAILY #30 tab 01/13/17 [Rx] Ipratropium-Albuterol Nebulize [Duoneb 0.5 mg-3 mg/3 ml Soln] 3 ml INHALATION RT -Q4H PRN ampul.neb 08/20/17 [Rx] Ipratropium [place] [Atrovent Hfa] 2 puff INHALATION RT-QID 09/16/17 [History] Levothyroxine Sodium [Synthroid] 100 mcg PO DAILY 09/16/17 [History] Umeclidinium [place] [Incruse Ellipta] 1 puff INHALATION RT-DAILY 09/16/17 [ History] glipiZIDE [Glucotrol XL] 2.5 mg PO DAILY 09/16/17 [History] metFORMIN HCL [Glucophage] 1,000 mg PO DAILY 09/16/17 [History] Furosemide [Lasix] 40 mg PO DAILY 10/13/17 [History] Levofloxacin [Levaquin] 750 mg PO DAILY #2 tab 04/12/18 [Rx] Metoprolol Tartrate [Lopressor] 25 mg PO TID #90 tab 04/12/18 [Rx] predniSONE 40 mg PO DAILY #6 tab 04/12/18 [Rx] Follow up Appointment(s)/Referral(s): Geovany Aguillon MD [STAFF PHYSICIAN] - 04/25/18 3:00 pm Jesse Gee MD [Primary Care Provider] - 04/17/18 10:45 am (Tuesday) Víctor Ortega MD [STAFF PHYSICIAN] - 04/19/18 3:15 pm (With Radha Champion NP.) Patient Instructions/Handouts: Iron Rich Diet (DC), Pleural Effusion (DC), Anemia (DC) Activity/Diet/Wound Care/Special Instructions: Daughter lives 7 hours away, would like to be called if patient will potentially be discharged so may make arrangements to poultry feed supervisor father. If unable to be contacted, patient may be transported by wheelchair van. Daughter can be reached in the day time at [phone] or her cell in the afternoon [phone] Pending Studies Pending Results: Culture and pathology still pending on sample
[2018-04-12 10:52] VITALS: BP 116/58; PULSE 103; TEMP 96.5
--- NOTE | 2018-04-12 15:10 | P.PN ---
Subjective Progress Note Date: 04/12/18 This is a 83-year-old gentleman admitted to the hospital with shortness of breath exertional with associated cough which has been going on for the past several weeks prior to his admission. Patient was found to be in typical atrial flutter with rapid ventricular response, was also noted to have pleural effusions. He has diabetes, hyperlipidemia, prior history of smoking. In the past it has been documented that the patient is not a candidate for anticoagulation. Patient did go undergo a thoracentesis yesterday, 400 mils of turbid dark yellow fluid was removed. Echocardiogram with Doppler study was performed which revealed an ejection fraction of 50-55%, severe mitral regurg, severe tricuspid regurg, moderate pulmonary hypertension. Blood pressure this morning 98/60 with a heart rate of 108, 100% on 2 L of oxygen. Patient is currently on Lanoxin 125 g daily along with metoprolol 12-1/2 mg by mouth every 8 hour. 04/11/2018 Patient seen and examined this morning, heart rate this morning under much better control throughout the night and this morning, time of my examination around noon today heart rate up in the 120s. Patient is however quite agitated speaking with his daughter on the phone, blood pressure 100/60, we will attempt to increase the metoprolol to 25 mg 3 times a day. 04/12/2018 Patient seen and examined this morning, continues to have a heart rate in the 80s to 90s. May be able to be discharged home from cardiology's perspective. Objective - Vital Signs Vital signs: Vital Signs Temp 96.5 F L 04/12/18 08:00 Pulse 100 04/12/18 08:55 Resp 16 04/12/18 08:00 BP 116/58 04/12/18 08:00 Pulse Ox 97 04/12/18 08:00 Intake & Output 04/11/18 04/12/18 04/12/18 18:59 06:59 18:59 Intake Total 2087 70 Balance 2087 70 Weight 72.4 kg Intake: IV 70 Sodium Chloride 0.9% 1, 70 000 ml @ 20 mls/hr IV . Q24H NAIMA Rx#:[id number] Oral 2087 Other: Voiding Method Incontinent Urinal Urinal # Voids 3 # Bowel Movements 0 - Exam PHYSICAL EXAMINATION: GENERAL: 83-year-old gentleman in no acute distress at the time of my examination HEENT: Head is atraumatic, normocephalic. Pupils equal, round. Sclera anicteric. Conjunctiva are clear. Mucous membranes of the mouth are moist. Neck is supple. There is no elevated jugular venous pressure.] bruit is heard. HEART EXAMINATION: Heart S1-S2 irregularly irregular CHEST EXAMINATION: Lungs are clear with diminished air entry to the bases, right greater than left. ABDOMEN: Soft, nontender. Bowel sounds are heard. No organomegaly noted. EXTREMITIES: 2+ peripheral pulses with no evidence of peripheral edema and no calf tenderness noted. NEUROLOGIC patient is awake, alert and oriented ?-3. . - Labs CBC & Chem 7: 04/11/18 05:41 04/12/18 07:59 Labs: Abnormal Lab Results - Last 24 Hours (Table) 04/11/18 04/11/18 04/11/18 Range/Units 16:37 21:07 21:10 Glucose (74-99) mg/dL POC Glucose (mg/dL) 370 H 405 H 386 H (75-99) mg/dL Magnesium (1.6-2.3) mg/dL ALT (21-72) U/L Total Protein (6.3-8.2) g/dL Albumin (3.5-5.0) g/dL 04/12/18 04/12/18 Range/Units 06:26 07:59 Glucose 253 H (74-99) mg/dL POC Glucose (mg/dL) 229 H (75-99) mg/dL Magnesium 1.4 L (1.6-2.3) mg/dL ALT 13 L (21-72) U/L Total Protein 6.2 L (6.3-8.2) g/dL Albumin 3.0 L (3.5-5.0) g/dL Microbiology - Last 24 Hours (Table) 04/08/18 12:53 Blood Culture - Preliminary Blood No Growth after 96 hours 04/09/18 10:35 Gram Stain - Preliminary Pleural Fluid Body Fluid Culture - Preliminary Assessment and Plan Plan: Assessment and plan #1. Dyspnea likely related to right pleural effusion, status post thoracentesis #2. A. fib RVR, #3. Chronic, persistent A. fib, documented contraindication to anticoagulation #4. Chronic obstructive pulmonary disease #5. History of thyroid cancer with thyroidectomy #6. Hypothyroidism #7. History of lower GI bleed secondary to radiation proctitis #8. Chronic anemia #9. Daily EtOH #10. Diabetes mellitus type 2 #11. Chronic And ongoing nicotine dependence Plan Cardiology's perspective, we will continue current medications. He may be able to be discharged home from our perspective. Follow-up appointment in the office post discharge. DNP note has been reviewed, I agree with a documented findings and plan of care. Patient was seen and examined.
== END 2018-04-12 11:14 | disposition home or self-care (01) | DRG 194 ==
LOC: EC 10:10 → 6SEL 12:19
PROVIDERS: ADMIT Family Medicine; ATTEND Family Medicine
PROC: 0W993ZX Drainage of Right Pleural Cavity, Percutaneous Approach, Diagnostic (ICD-10-PCS; principal; 2018-04-09)
DX: J18.9 Pneumonia, unspecified organism (principal); E87.1 Hypo-osmolality and hyponatremia; I48.3 Typical atrial flutter; J44.0 Chronic obstructive pulmonary disease with (acute) lower respiratory infection; J44.1 Chronic obstructive pulmonary disease with (acute) exacerbation; J91.8 Pleural effusion in other conditions classified elsewhere; D50.0 Iron deficiency anemia secondary to blood loss (chronic); E11.9 Type 2 diabetes mellitus without complications; E78.5 Hyperlipidemia, unspecified; E83.42 Hypomagnesemia; E86.0 Dehydration; R32 Unspecified urinary incontinence; E89.0 Postprocedural hypothyroidism; F17.200 Nicotine dependence, unspecified, uncomplicated; F32.9 Major depressive disorder, single episode, unspecified; F41.9 Anxiety disorder, unspecified; I08.1 Rheumatic disorders of both mitral and tricuspid valves; I10 Essential (primary) hypertension; I27.20 Pulmonary hypertension, unspecified; I48.2 Chronic atrial fibrillation; K21.9 Gastro-esophageal reflux disease without esophagitis; K62.7 Radiation proctitis; M46.94 Unspecified inflammatory spondylopathy, thoracic region; R26.9 Unspecified abnormalities of gait and mobility; R41.0 Disorientation, unspecified; K57.90 Diverticulosis of intestine, part unspecified, without perforation or abscess without bleeding; Z79.51 Long term (current) use of inhaled steroids; Z79.84 Long term (current) use of oral hypoglycemic drugs; Z79.890 Hormone replacement therapy; Z79.899 Other long term (current) drug therapy; Z88.6 Allergy status to analgesic agent; Z91.81 History of falling; Z85.850 Personal history of malignant neoplasm of thyroid; Z85.828 Personal history of other malignant neoplasm of skin; Z85.46 Personal history of malignant neoplasm of prostate; Z87.01 Personal history of pneumonia (recurrent); Z92.3 Personal history of irradiation; Z87.11 Personal history of peptic ulcer disease; Z90.49 Acquired absence of other specified parts of digestive tract; Z98.42 Cataract extraction status, left eye; Z98.41 Cataract extraction status, right eye; Z96.1 Presence of intraocular lens; Z82.5 Family history of asthma and other chronic lower respiratory diseases
CPT/HCPCS: 36415; 71045; 71046; 76604; 80053; 80162; 82550; 82553; 82945; 83036; 83615; 83735; 83880; 84157; 84484; 85025; 85610; 85730; 87040; 87070; 87205; 88108; 88305; 88341; 88342; 89050; 93005; 93306; 94640; 96365; 96376; 99291

== ENCOUNTER 2018-04-29 17:19 | Observation (INO) | payer MEDICARE, OTHER ==
[2018-04-29] MEDS ORDERED: IPRATROPIUM-ALBUTEROL 3 ML NEB INHALATION STA (17:29)
[2018-04-29] MEDS ORDERED: methylPREDNISolone SOD SUCCI 125 MG/2 ML VIAL IV STA (17:29)
--- NOTE | 2018-04-29 17:30 | ED ---
General Adult HPI - General Stated complaint: Weakness Time Seen by Provider: 04/29/18 17:24 Source: patient, RN notes reviewed Limitations: no limitations - History of Present Illness Initial comments: Patient is a pleasant 83-year-old male presenting to the emergency department with difficulty breathing. Patient states is long-standing and worse over the past year, patient states her breathing has been worse the past couple of weeks. Patient does have cough that is dry nonproductive. has been wheezing starting today. Patient did not sleep well last night. No fevers. No chest pain. - Related Data Home Medications Medication Instructions Recorded Confirmed Ipratropium [place] [Atrovent Hfa] 2 puff INHALATION RT-QID 09/16/17 04/08/18 Levothyroxine Sodium [Synthroid] 100 mcg PO DAILY 09/16/17 04/08/18 Umeclidinium [place] [Incruse 1 puff INHALATION RT-DAILY 09/16/17 04/08/18 Ellipta] glipiZIDE [Glucotrol XL] 2.5 mg PO DAILY 09/16/17 04/08/18 metFORMIN HCL [Glucophage] 1,000 mg PO DAILY 09/16/17 04/08/18 Furosemide [Lasix] 40 mg PO DAILY 10/13/17 04/08/18 Previous Rx's Medication Instructions Recorded Budesonide-Formot 160-4.5 Mcg 2 puff INHALATION RT-BID #1 inhaler 10/27/16 [Symbicort 160-4.5 Mcg Inhaler] Albuterol Inhaler [Ventolin Hfa 1 - 2 puff INHALATION RT-QID #0 01/13/17 Inhaler] Digoxin [Lanoxin] 125 mcg PO DAILY #30 tab 01/13/17 Ipratropium-Albuterol Nebulize 3 ml INHALATION RT-Q4H PRN 08/20/17 [Duoneb 0.5 mg-3 mg/3 ml Soln] ampul.neb Levofloxacin [Levaquin] 750 mg PO DAILY #2 tab 04/12/18 Metoprolol Tartrate [Lopressor] 25 mg PO TID #90 tab 04/12/18 predniSONE 40 mg PO DAILY #6 tab 04/12/18 Allergies Allergy/AdvReac Type Severity Reaction Status Date / Time aspirin Allergy Rash/Hives Verified 04/08/18 10:21 Review of Systems ROS Statement: Those systems with pertinent positive or pertinent negative responses have been documented in the HPI. ROS Other: All systems not noted in ROS Statement are negative. Constitutional: Denies: fever, chills Eyes: Denies: eye pain ENT: Denies: ear pain Respiratory: Reports: cough, dyspnea Cardiovascular: Denies: chest pain Endocrine: Reports: fatigue Gastrointestinal: Denies: abdominal pain Genitourinary: Denies: dysuria Musculoskeletal: Denies: back pain Skin: Denies: rash Neurological: Denies: weakness Past Medical History Past Medical History: Atrial Fibrillation, Cancer, COPD, Diabetes Mellitus, GERD /Reflux, Hypertension, Liver Disease, Osteoarthritis (OA), Pneumonia, Prostate Disorder, Thyroid Disorder Additional Past Medical History / Comment(s): Other HX: skin cancers with removals, prostate cancer with radiation, lower GI bleed thought secondary to radiation proctitis, diverticular disease, chronic anemia, duodenal ulcer, ETOH , history of ETOH withdrawal/delirium tremors, R leg weakness, history of falls , chronic lower extremity edema, arthritis thoracic spine. History of Any Multi-Drug Resistant Organisms: None Reported Past Surgical History: Bowel Resection Additional Past Surgical History / Comment(s): thyroidectomy, colonoscopy/ polypectomy, skin cancer removed, bilateral cataracts, bowel resection-d/t diverticulits, sigmoidoscopy Past Anesthesia/Blood Transfusion Reactions: No Reported Reaction Additional Past Anesthesia/Blood Transfusion Reaction / Comment(s): has ahd blood transfusions-no reaction Past Psychological History: Anxiety, Depression Smoking Status: Current every day smoker Past Alcohol Use History: Abuse, Daily Past Drug Use History: None Reported - Past Family History Father Family Medical History: Asthma, CVA/TIA Additional Family Medical History / Comment(s): pacemaker, smoker Mother Family Medical History: Chest Pain / Angina Additional Family Medical History / Comment(s): smoker General Exam Limitations: no limitations General appearance: alert, in no apparent distress Head exam: Present: atraumatic Eye exam: Present: normal appearance, PERRL ENT exam: Present: normal oropharynx Neck exam: Present: normal inspection Respiratory exam: Present: wheezes Cardiovascular Exam: Present: regular rate, normal rhythm GI/Abdominal exam: Present: soft. Absent: tenderness Extremities exam: Present: normal inspection. Absent: pedal edema, calf tenderness Neurological exam: Present: alert Psychiatric exam: Present: normal affect, normal mood Skin exam: Present: normal color Course Vital Signs 04/29/18 04/29/18 04/29/18 17:33 18:04 18:17 Temperature 97.6 F Pulse Rate 112 H 118 H 112 H Respiratory 18 Rate Blood Pressure 121/70 O2 Sat by Pulse 100 Oximetry 04/29/18 04/29/18 19:36 20:00 Temperature Pulse Rate 105 H Respiratory 18 20 Rate Blood Pressure O2 Sat by Pulse 100 Oximetry EKG Findings - EKG Comments: EKG Findings:: A. fib with a rate of 116. QRS 84. QT 280. QTC 39. Normal axis. Low QRS voltage. Nonspecific ST-T. Medical Decision Making - Medical Decision Making Patient reevaluated and resting comfortably in bed. Lung sounds have improved however still with wheezing. Dr. mayer has been paged for admission. - Lab Data Result diagrams: 04/29/18 17:39 04/29/18 17:39 Lab Results 04/29/18 04/29/18 04/29/18 Range/Units 17:39 17:39 17:39 WBC 5.1 (3.8-10.6) k/uL RBC 2.76 L (4.30-5.90) m/uL Hgb 8.2 L (13.0-17.5) gm/dL Hct 24.7 L (39.0-53.0) % MCV 89.5 (80.0-100.0) fL MCH 29.8 (25.0-35.0) pg MCHC 33.3 (31.0-37.0) g/dL RDW 20.5 H (11.5-15.5) % Plt Count 321 (150-450) k/uL Neutrophils % 79 % Lymphocytes % 12 % Monocytes % 6 % Eosinophils % 2 % Basophils % 0 % Neutrophils # 4.0 (1.3-7.7) k/uL Lymphocytes # 0.6 L (1.0-4.8) k/uL Monocytes # 0.3 (0-1.0) k/uL Eosinophils # 0.1 (0-0.7) k/uL Basophils # 0.0 (0-0.2) k/uL Hypochromasia Slight Anisocytosis Moderate PT (9.0-12.0) sec INR (<1.2) APTT (22.0-30.0) sec Sodium 133 L (137-145) mmol/L Potassium 4.6 (3.5-5.1) mmol/L Chloride 98 (98-107) mmol/L Carbon Dioxide 22 (22-30) mmol/L Anion Gap 13 mmol/L BUN 12 (9-20) mg/dL Creatinine 0.67 (0.66-1.25) mg/dL Est GFR (CKD-EPI)AfAm >90 (>60 ml/min/1.73 sqM) Est GFR (CKD-EPI)NonAf >90 (>60 ml/min/1.73 sqM) Glucose 126 H (74-99) mg/dL Calcium 8.8 (8.4-10.2) mg/dL Total Bilirubin 0.4 (0.2-1.3) mg/dL AST 21 (17-59) U/L ALT 13 L (21-72) U/L Alkaline Phosphatase 88 (38-126) U/L Total Creatine Kinase 50 L (55-170) U/L CK-MB (CK-2) 1.8 (0.0-2.4) ng/mL CK-MB (CK-2) Rel Index 3.6 Troponin I <0.012 (0.000-0.034) ng/mL NT-Pro-B Natriuret Pep pg/mL Total Protein 6.4 (6.3-8.2) g/dL Albumin 3.2 L (3.5-5.0) g/dL 04/29/18 04/29/18 Range/Units 17:39 17:39 WBC (3.8-10.6) k/uL RBC (4.30-5.90) m/uL Hgb (13.0-17.5) gm/dL Hct (39.0-53.0) % MCV (80.0-100.0) fL MCH (25.0-35.0) pg MCHC (31.0-37.0) g/dL RDW (11.5-15.5) % Plt Count (150-450) k/uL Neutrophils % % Lymphocytes % % Monocytes % % Eosinophils % % Basophils % % Neutrophils # (1.3-7.7) k/uL Lymphocytes # (1.0-4.8) k/uL Monocytes # (0-1.0) k/uL Eosinophils # (0-0.7) k/uL Basophils # (0-0.2) k/uL Hypochromasia Anisocytosis PT 10.4 (9.0-12.0) sec INR 1.1 (<1.2) APTT 27.2 (22.0-30.0) sec Sodium (137-145) mmol/L Potassium (3.5-5.1) mmol/L Chloride (98-107) mmol/L Carbon Dioxide (22-30) mmol/L Anion Gap mmol/L BUN (9-20) mg/dL Creatinine (0.66-1.25) mg/dL Est GFR (CKD-EPI)AfAm (>60 ml/min/1.73 sqM) Est GFR (CKD-EPI)NonAf (>60 ml/min/1.73 sqM) Glucose (74-99) mg/dL Calcium (8.4-10.2) mg/dL Total Bilirubin (0.2-1.3) mg/dL AST (17-59) U/L ALT (21-72) U/L Alkaline Phosphatase (38-126) U/L Total Creatine Kinase (55-170) U/L CK-MB (CK-2) (0.0-2.4) ng/mL CK-MB (CK-2) Rel Index Troponin I (0.000-0.034) ng/mL NT-Pro-B Natriuret Pep 3070 pg/mL Total Protein (6.3-8.2) g/dL Albumin (3.5-5.0) g/dL - Radiology Data Radiology results: image reviewed (Chest x-ray shows persistent right lower lobe effusion and airspace disease similar to previous x-ray.) Disposition Clinical Impression: COPD (chronic obstructive pulmonary disease) Disposition: ADMITTED IP TO THIS HOSP Is patient prescribed a controlled substance at d/c from ED?: No Referrals: Jesse Gee MD [Primary Care Provider] - 1-2 days Decision Time: 20:11
[2018-04-29 17:49] LABS: Anisocytosis Moderate; Basophils % (A) 0 %; Eosinophils # (A) 0.1 k/uL (0-0.7); Eosinophils % (A) 2 %; HCT 24.7 % (39.0-53.0); HGB 8.2 gm/dL (13.0-17.5); Hypochromasia Slight; Lymphocytes # (A) 0.6 k/uL (1.0-4.8); Lymphocytes % (A) 12 %; MCH 29.8 pg (25.0-35.0); MCHC 33.3 g/dL (31.0-37.0); MCV 89.5 fL (80.0-100.0); Mean Platelet Volume 7.3; Monocytes # (A) 0.3 k/uL (0-1.0); Monocytes % (A) 6 %; Neutrophils % (A) 79 %; Platelet Count 321 k/uL (150-450); RBC 2.76 m/uL (4.30-5.90); RDW 20.5 % (11.5-15.5); WBC 5.1 k/uL (3.8-10.6)
[2018-04-29 18:01] LABS: ALT 13 U/L (21-72); AST 21 U/L (17-59); Albumin 3.2 g/dL (3.5-5.0); Alkaline Phosphatase 88 U/L (38-126); Anion Gap 13 mmol/L; Blood Urea Nitrogen 12 mg/dL (9-20); Calcium 8.8 mg/dL (8.4-10.2); Carbon Dioxide 22 mmol/L (22-30); Chloride 98 mmol/L (98-107); Creatine Kinase 50 U/L (55-170); Glucose 126 mg/dL (74-99); Potassium 4.6 mmol/L (3.5-5.1); Sodium 133 mmol/L (137-145); Total Bilirubin 0.4 mg/dL (0.2-1.3); Total Protein 6.4 g/dL (6.3-8.2)
[2018-04-29 18:06] LABS: INR 1.1 (<1.2); Partial Thromboplastin Time 27.2 sec (22.0-30.0); Prothrombin Time 10.4 sec (9.0-12.0)
[2018-04-29 18:13] LABS: Creatine Kinase MB 1.8 ng/mL (0.0-2.4); Troponin I <0.012 ng/mL (0.000-0.034)
--- NOTE | 2018-04-29 18:45 | XR ---
EXAMINATION TYPE: XR chest 2V DATE OF EXAM: 04/29/2018 COMPARISON: 03/30/2018 HISTORY: Difficulty breathing TECHNIQUE: Frontal and lateral views of the chest are obtained. FINDINGS: There is a small right pleural effusion and right-sided airspace disease, similar to the e xam of 04/09/2018. Remainder the lungs are clear. Cardiac silhouette is enlarged. Underlying pulmonary emphysema is noted as well as biapical lucency is present. Diffuse osseous demineralization is noted . IMPRESSION: Similar-appearing small right pleural effusion and right basilar airspace disease in com parison to the prior of 04/09/2018. Right basilar airspace disease could represent pneumonia or atelec tasis.
[2018-04-29] MEDS ORDERED: IPRATROPIUM-ALBUTEROL 3 ML NEB INHALATION PRN (20:12)
[2018-04-29] MEDS ORDERED: AZITHROMYCIN 500 MG TAB PO STA (20:29)
[2018-04-29 21:26] VITALS: BMI 25.0
[2018-04-29] MEDS: MELATONIN 5 MG TABLET PO SCH (23:04)
[2018-04-29] MEDS: methylPREDNISolone SOD SUCCI 125 MG/2 ML VIAL IV SCH (23:05)
[2018-04-30] MEDS: methylPREDNISolone SOD SUCCI 125 MG/2 ML VIAL IV SCH ×3 (06:06→17:55)
[2018-04-30 07:09] LABS: Glucose,Whole Blood 333 mg/dL (75-99)
[2018-04-30] MEDS: IPRATROPIUM-ALBUTEROL 3 ML NEB INHALATION SCH ×4 (08:00→20:16)
[2018-04-30] MEDS: INSULIN ASPART 100 UNIT/ML 1 ML 10 ML VIAL SQ SCH ×4 (08:22→19:59)
[2018-04-30] MEDS: AZITHROMYCIN 500 MG TAB PO SCH (08:22)
[2018-04-30] MEDS ORDERED: IPRATROPIUM-ALBUTEROL 3 ML NEB INHALATION PRN (08:41)
[2018-04-30] MEDS: FUROSEMIDE 40 MG TAB PO SCH (09:54)
[2018-04-30] MEDS: LEVOTHYROXINE 100 MCG TAB PO SCH (09:55)
[2018-04-30] MEDS: METOPROLOL TARTRATE 25 MG TAB PO SCH ×3 (09:55→19:59)
[2018-04-30] MEDS: metFORMIN 500 MG TAB PO SCH (09:55)
[2018-04-30] MEDS ORDERED: IPRATROPIUM 0.5 MG/2.5 ML NEBU INHALATION SCH (12:00)
[2018-04-30] MEDS ORDERED: ALBUTEROL INHALER 60 PUFF/8 GM INHALER INHALATION SCH (12:00)
[2018-04-30 12:06] LABS: Glucose,Whole Blood 350 mg/dL (75-99)
[2018-04-30] MEDS: DIGOXIN 125 MCG TAB PO SCH (15:17)
--- NOTE | 2018-04-30 15:49 | P.CNPUL ---
History of Present Illness Consult date: 04/30/18 Reason for consult: dyspnea, COPD History of present illness: 83-year-old male patient presented yesterday to the emergency department because of worsening shortness of breath. This patient has been progressively getting worse over the past few weeks. His been having cough and productive in addition to increased dyspnea and wheeze. No fever. No chills. No hemoptysis. No pleurisy. He is known to have COPD and she has chronic persistent atrial fibrillation and history of alcoholism with frequent falls. He is also diabetic and has hypertension and is a chronic cigarette smoker and chronic alcohol drinker his blood work showed a hemoglobin of 8.2 with a white cell count of 5.1. Blood work and electrodes are all within normal limits. Coagulation profile is also within normal limits. Over the past 24 hours the patient received IV Solu-Medrol and today's back to his baseline. He is requesting to be discharged home. He has developed some mild steroid-induced hyperglycemia. He is on DuoNeb about treatments around the clock. He denies having any specific complaints. His chest x-ray shows a small appearing right- sided pleural effusion on right basilar airspace disease which could represent pneumonia/atelectasis. Review of Systems CONSTITUTIONAL: Denies fever. Denies chills. Chronic weight loss and medical debility. EYES: Denies blurred vision. Denies vision changes. Denies eye pain. EARS, NOSE, MOUTH & THROAT: Denies headache. Denies sore throat. Denies ear pain. CARDIOVASCULAR: Denies chest pain. Describes increased shortness of breath and cough and congestion.. Denies orthopnea. Denies PND. Denies palpitations. RESPIRATORY: Admits to have limited cough and dyspnea and chest congestion and wheeze. GASTROINTESTINAL: Denies abdominal pain. Denies diarrhea. Denies constipation. Denies nausea. Denies vomiting. MUSCULOSKELETAL: right shoulder and arm pain. Chronic weakness of the RLE and history of falls INTEGUMENTARY: Denies pruitis. Denies rash. NEUROLOGIC: Denies numbness. Denies tingling. RLE weakness. Increased risk of falls PSYCHIATRIC: Denies anxiety. Denies depression. ENDOCRINE: Denies fatigue. Denies weight change. Denies polydipsia. Denies polyurina. GENITOURINARY: Denies burning, hematuria or urgency with micturation. HEMATOLOGIC: Denies history of anemia. Denies bleeding. Past Medical History Past Medical History: Atrial Fibrillation, Cancer, COPD, Diabetes Mellitus, GERD /Reflux, Hypertension, Liver Disease, Osteoarthritis (OA), Pneumonia, Prostate Disorder, Thyroid Disorder Additional Past Medical History / Comment(s): COPD, chronic atrial fibrillation , thyroid cancer with a previous thyroidectomy, hypothyroidism, skin cancers with removals, prostate cancer with radiation, lower GI bleed thought secondary to radiation proctitis, diverticular disease, chronic anemia, duodenal ulcer, ETOH, history of ETOH withdrawal/delirium tremors, R leg weakness, history of falls, chronic lower extremity edema, arthritis thoracic spine. History of Any Multi-Drug Resistant Organisms: None Reported Past Surgical History: Bowel Resection Additional Past Surgical History / Comment(s): thyroidectomy, colonoscopy/ polypectomy, skin cancer removed, bilateral cataracts, bowel resection-d/t diverticulits, sigmoidoscopy Past Anesthesia/Blood Transfusion Reactions: No Reported Reaction Additional Past Anesthesia/Blood Transfusion Reaction / Comment(s): has ahd blood transfusions-no reaction Past Psychological History: Anxiety, Depression Additional Psychological History / Comment(s): pt stated he lives at [facility],has w/c and 2 -4 wheeled walkers. has home care but can't rememebr name of company.. 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 Smoking Status: Current every day smoker Past Alcohol Use History: Abuse, Daily Additional Past Alcohol Use History / Comment(s): started smoking in his mid 40' s, 1ppd, pt stated i don't drink every single day but state a 5th of vodka will last 3 days Past Drug Use History: None Reported - Past Family History Father Family Medical History: Asthma, CVA/TIA Additional Family Medical History / Comment(s): pacemaker, smoker Mother Family Medical History: Chest Pain / Angina Additional Family Medical History / Comment(s): smoker Medications and Allergies Home Medications Medication Instructions Recorded Confirmed Type Budesonide-Formot 160-4.5 Mcg 2 puff INHALATION RT-BID #1 inhaler 10/27/1604/30 Rx [Symbicort 160-4.5 Mcg Inhaler] Albuterol Inhaler [Ventolin Hfa 1 - 2 puff INHALATION RT-QID #0 01/13/17 Rx Inhaler] Ipratropium-Albuterol Nebulize 3 ml INHALATION RT-Q4H PRN 08/20/17 04/30/18 Rx [Duoneb 0.5 mg-3 mg/3 ml Soln] ampul.neb Ipratropium [place] [Atrovent Hfa] 2 puff INHALATION RT-QID 09/16/17 04/30/18 History Levothyroxine Sodium [Synthroid] 100 mcg PO DAILY 09/16/17 04/30/18 History Umeclidinium [place] [Incruse 1 puff INHALATION RT-DAILY 09/16/17 04/30/18 History Ellipta] glipiZIDE [Glucotrol XL] 2.5 mg PO DAILY 09/16/17 04/30/18 History metFORMIN HCL [Glucophage] 1,000 mg PO DAILY 09/16/17 04/30/18 History Levofloxacin [Levaquin] 500 mg PO DAILY 04/30/18 04/30/18 History Metoprolol Tartrate 12.5 mg PO BID 04/30/18 04/30/18 History Allergies Allergy/AdvReac Type Severity Reaction Status Date / Time aspirin Allergy Rash/Hives Verified 04/08/18 10:21 Physical Exam Vitals: Vital Signs Temp Pulse Pulse Resp BP BP Pulse Ox 04/30/18 15:37 102 H 04/30/18 11:51 108 H 04/30/18 11:30 100 04/30/18 08:16 104 H 04/30/18 08:03 84 04/30/18 08:00 98.2 F 109 H 18 100/67 98 04/30/18 03:55 18 04/29/18 23:49 18 04/29/18 23:12 97.9 F 118 H 18 104/70 99 04/29/18 21:30 20 04/29/18 21:00 98.0 F 118 H 20 114/81 99 04/29/18 20:00 20 04/29/18 19:36 105 H 18 100 04/29/18 18:17 112 H 04/29/18 18:04 118 H 04/29/18 17:33 97.6 F 112 H 18 121/70 100 Intake and Output 04/30/18 04/30/18 04/30/18 06:59 14:59 22:59 Other: Voiding Method Toilet Toilet Diaper Urinal Diaper # Voids 1 Weight 76.5 kg GENERAL EXAM: Alert, 82-year-old white male, somewhat a poor historian and I suspect underlying dementia. HEAD: Normocephalic/atraumatic. EYES: Normal reaction of pupils, equal size. Conjunctiva pink, sclera white. NOSE: Clear with pink turbinates. THROAT: No erythema or exudates. NECK: No masses, no JVD, no thyroid enlargement, no adenopathy. CHEST: No chest wall deformity. Symmetrical expansion. LUNGS: Equal air entry with no crackles, wheeze, rhonchi or dullness. CVS: Irregular rate and rhythm, normal S1 and S2, no gallops, no murmurs, no rubs ABDOMEN: Soft, nontender. No hepatosplenomegaly, normal bowel sounds, no guarding or rigidity. EXTREMITIES: No clubbing, no cyanosis, 2+ pulses and upper and lower extremities. There is minimal edema in lower extremities bilaterally. MUSCULOSKELETAL: Muscle strength and tone normal. No open wounds or sores or ulceration. SPINE: No scoliosis or deformity SKIN: No rashes CENTRAL NERVOUS SYSTEM: Alert and oriented -3. No focal deficits, tone is normal in all 4 extremities. PSYCHIATRIC: Alert and oriented -3. Irritable Results - Laboratory Findings CBC and BMP: 04/29/18 17:39 04/29/18 17:39 PT/INR, D-dimer PT 10.4 sec (9.0-12.0) 04/29/18 17:39 INR 1.1 (<1.2) 04/29/18 17:39 Abnormal lab findings: Abnormal Labs 04/29/18 04/29/18 04/29/18 17:39 17:39 17:39 RBC 2.76 L Hgb 8.2 L Hct 24.7 L RDW 20.5 H Lymphocytes # 0.6 L Sodium 133 L Glucose 126 H POC Glucose (mg/dL) ALT 13 L Total Creatine Kinase 50 L Albumin 3.2 L 04/30/18 04/30/18 07:07 12:03 RBC Hgb Hct RDW Lymphocytes # Sodium Glucose POC Glucose (mg/dL) 333 H 350 H ALT Total Creatine Kinase Albumin - Diagnostic Findings Chest x-ray: image reviewed Assessment and Plan Plan: Assessment 1 acute COPD exacerbation. The right lower lobe findings are essentially chronic and unchanged compared to the previous admissions 2 right-sided pleural effusion, chronic, transudate based on the low LDH and protein on previous thoracentesis was done on 04/09/2018. Pleural fluid cytology has been negative. This is likely related to chronic heart disease. His last thoracentesis was done on 04/09/2018 with a total of 400 mL of pleural fluid was aspirated without any complications and the fluid was transudate with negative cytology. Most recent echocardiogram from 04/08/2018 showed an ejection fraction of 50-55% and moderate aortic stenosis and severe mitral regurgitation and severe tricuspid regurgitation secondary pulmonary hypertension. It's likely the pleural effusion may be related to valvular heart disease and CHF knowing that it was a transudate in nature. 3 chronic atrial fibrillation 4 Thyroid cancer with thyroidectomy 5 hypothyroidism 6 skin cancers with removals 7 prostrate cancer with radiation 8 history of lower GI bleed thought secondary to radiation proctitis 9 diverticular disease 10 chronic anemia 11 duodenal ulcer 12 ETOH, history of ETOH withdrawal/delirium tremors 13 NIDDM type II 14 R leg weakness/ history of falls, recurrent falls 15 chronic lower extremity edema, improved 16 arthritis thoracic spine. Plan Continue diuretics. Continue steroids and taper the patient a prednisone burst taper knowing that his presentation was typical of an acute COPD exacerbation. Continue bronchodilators. Smoking cessation counseling. Overall performance and functional status is poor. We'll continue to follow.
[2018-04-30 17:15] LABS: Glucose,Whole Blood 416 mg/dL (75-99)
--- NOTE | 2018-04-30 18:37 | HP ---
HISTORY AND PHYSICAL DATE OF ADMISSION: 04/29/18. DATE OF SERVICE: 04/30/18 PRESENTING COMPLAINT: Short of breath, wheezing. HISTORY OF PRESENTING COMPLAINT: This is an 83-year-old patient, well known to me with a rather extensive medical history, still continues to smoke. Does follow with Dr. Gee as a family doctor. The patient lives at assisted living. Chronic stable medical conditions include diabetes, GERD, hypertension, hypothyroid, diverticulosis, osteoarthritis, atrial fibrillation, not a candidate for anticoagulation because of bleeding. The patient also got known radiation proctitis with recurrent rectal bleeding and argon plasma coagulation has been done by Dr. Soliz in the past. The patient also has got known radiation cystitis, does follow with Dr. Guzman. The patient presented with worsening short of breath, wheezing, slight cough, clear sputum, appetite is okay and normally uses a walker and a scooter to get around. No fever. No chills. Admitted with COPD exacerbation. REVIEW OF SYSTEMS: CONSTITUTIONAL: Tired. HEENT: Decreased hearing. RESPIRATORY: As above. CARDIOVASCULAR: None. GASTROINTESTINAL: None. MUSCULOSKELETAL: None. DERMATOLOGICAL: Dry skin. HEMATOLOGIC, LYMPHATIC: None. PSYCHIATRY: Forgetful. NEUROLOGICAL: Uses a walker. PAST MEDICAL HISTORY: Recurrent gastrointestinal bleed from radiation proctitis, hematuria from radiation cystitis, essential hypertension, diabetes, gait dysfunction, persistent atrial fibrillation not a candidate for anticoagulation, chronic thoracic spine osteoarthritis, hypothyroidism, GERD, COPD, moderate to severe mitral regurgitation, severe secondary pulmonary hypertension, severe tricuspid regurgitation, thyroid cancer with thyroidectomy, duodenal ulcer. PAST SURGICAL HISTORY: Bowel resection, thyroidectomy, skin cancer removed, bilateral cataract surgery, bowel resection for diverticulitis. ALLERGIES: To ASPIRIN. HOME MEDICATIONS: Glucophage 1000 mg p.o. daily, Glucotrol XL 2.5 mg p.o. daily, Incruse Ellipta 1 puff daily, metoprolol 12.5 p.o. b.i.d., Synthroid 100 mcg p.o. daily, Levaquin, DuoNeb q.4h p.r.n., Atrovent HFA 2 puffs q.i.d., Symbicort 160/4.5, 2 puffs b.i.d., Ventolin HFA 1 or 2 puffs q.6h q.i.d. PHYSICAL EXAMINATION: Vital signs on presentation: Temperature 97.6, pulse 101, respiration 18, blood pressure 120/70, pulse ox 100 percent on room air. GENERAL APPEARANCE: Average build, lying in bed, tired-appearing. EYES: Pupils equal. Conjunctivae normal. HEENT: External appearance of nose and ears normal. Oral cavity normal. NECK: JVD unable to assess. Mass not palpable. RESPIRATORY: Effort increased. Lungs, decreased breath sounds. Prolonged expiration. Some wheezing. CARDIOVASCULAR: Heart sounds irregular, no edema. ABDOMEN: Soft, nontender. Liver and spleen not palpable. LYMPHATIC: No lymph node palpable in neck or axillae. PSYCHIATRY: Alert and oriented x3. Patient is forgetful. NEUROLOGICAL: Pupils equal. Cranial nerves grossly intact. Patient does use a walker. MUSCULOSKELETAL: Some evidence of osteoarthritis especially hands and knees. INVESTIGATIONS: White count 5.1, hemoglobin 8.2, potassium 4.6, BUN and creatinine normal. EKG tracing personally reviewed by me shows atrial fibrillation, rate of 116. Chest x-ray film, personally reviewed by me shows chronically elevated right diaphragm, possibly some chronic infiltrate on the right side. ASSESSMENT: 1. Acute chronic obstructive pulmonary disease exacerbation in a current smoker. 2. Essential hypertension. 3. Diabetes mellitus type 2 on oral hypoglycemic. 4. Chronic gait dysfunction. 5. Persistent atrial fibrillation, not a candidate for anticoagulation. 6. Chronic thoracic spine osteoarthritis. 7. 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 8. Gastroesophageal reflux disease. 9. Moderate to severe mitral regurgitation, nonrheumatic. 10.Severe secondary pulmonary hypertension secondary to chronic obstructive pulmonary disease. 11.Severe tricuspid regurgitation, nonrheumatic. PLAN: Home medications are resumed. Patient is put on IV steroids, DuoNeb. Empirically was put on Zithromax. Pulmonary was consulted. The patient advised against smoking. MMODL / IJN: [id number] /
[2018-04-30] MEDS: MELATONIN 5 MG TABLET PO SCH (19:59)
[2018-04-30 20:09] LABS: Glucose,Whole Blood 378 mg/dL (75-99)
[2018-04-30] MEDS: SYMBICORT 160-4.5 MCG INHALER INHALATION SCH (20:16)
[2018-05-01] MEDS: methylPREDNISolone SOD SUCCI 125 MG/2 ML VIAL IV SCH ×2 (01:23→06:22)
[2018-05-01] MEDS: LEVOTHYROXINE 100 MCG TAB PO SCH (06:24)
[2018-05-01 06:35] LABS: Glucose,Whole Blood 248 mg/dL (75-99)
[2018-05-01] MEDS: SYMBICORT 160-4.5 MCG INHALER INHALATION SCH (06:59)
[2018-05-01] MEDS: IPRATROPIUM-ALBUTEROL 3 ML NEB INHALATION SCH ×2 (06:59→11:37)
[2018-05-01 07:22] VITALS: BP 103/63; RESP 16; TEMP 98.2
[2018-05-01] MEDS: DIGOXIN 125 MCG TAB PO SCH (07:52)
[2018-05-01] MEDS: AZITHROMYCIN 500 MG TAB PO SCH (07:52)
[2018-05-01] MEDS: metFORMIN 500 MG TAB PO SCH (07:53)
[2018-05-01] MEDS: FUROSEMIDE 40 MG TAB PO SCH (07:53)
[2018-05-01] MEDS: METOPROLOL TARTRATE 25 MG TAB PO SCH (07:53)
[2018-05-01] MEDS: INSULIN ASPART 100 UNIT/ML 1 ML 10 ML VIAL SQ SCH (07:53)
[2018-05-01] MEDS ORDERED: NON-FORMULARY DRUG (Umeclidinium Bromide [Incruse Ellipta] 1 PUFF) INHALATION SCH (08:00)
[2018-05-01 11:57] LABS: Hemoglobin A1C 7.1 % (4.0-6.0)
[2018-05-01 12:16] LABS: Glucose,Whole Blood 82 mg/dL (75-99)
[2018-05-01 12:20] VITALS: PULSE 109
--- NOTE | 2018-05-01 15:31 | P.PN ---
Subjective Progress Note Date: 05/01/18 Principal diagnosis: Acute COPD exacerbation, right-sided pleural effusion/recurrent 83-year-old male patient presented yesterday to the emergency department because of worsening shortness of breath. This patient has been progressively getting worse over the past few weeks. His been having cough and productive in addition to increased dyspnea and wheeze. No fever. No chills. No hemoptysis. No pleurisy. He is known to have COPD and she has chronic persistent atrial fibrillation and history of alcoholism with frequent falls. He is also diabetic and has hypertension and is a chronic cigarette smoker and chronic alcohol drinker his blood work showed a hemoglobin of 8.2 with a white cell count of 5.1. Blood work and electrodes are all within normal limits. Coagulation profile is also within normal limits. Over the past 24 hours the patient received IV Solu-Medrol and today's back to his baseline. He is requesting to be discharged home. He has developed some mild steroid-induced hyperglycemia. He is on DuoNeb about treatments around the clock. He denies having any specific complaints. His chest x-ray shows a small appearing right- sided pleural effusion on right basilar airspace disease which could represent pneumonia/atelectasis. Reevaluated today on 05/01/2018, feeling much better, breathing a lot easier. No cough no wheezing no shortness of breath. Patient is asking to be discharged home. Remains on his multiple bronchodilators, chest x-ray showed very small tiny right-sided effusion, not enough to consider thoracentesis at this point. Objective - Vital Signs Vital signs: Vital Signs Temp 98.2 F 05/01/18 07:19 Pulse 109 H 05/01/18 12:00 Resp 16 05/01/18 12:00 BP 103/63 05/01/18 07:19 Pulse Ox 97 05/01/18 07:19 Intake & Output 04/30/18 05/01/18 05/01/18 18:59 06:59 18:59 Intake Total 436 Balance 436 Weight 77.2 kg 77.2 kg Intake: Oral 436 Other: Voiding Method Toilet Toilet Toilet Urinal Urinal Urinal Diaper Diaper Diaper # Voids 2 2 - Exam Physical Exam: Revealed an 83-year-old white male in no distress. HEENT:[Neck is supple.] [No neck masses.] [No thyromegaly.] [No JVD.] Chest: [Clear throughout, no crackles, no rhonchi, no wheezes.] Cardiac Exam: [Normal S1 and S2, no S3 gallop, no murmur.] Abdomen: [Soft, nontender, no megaly, no rebound, no guarding, normal bowel sounds.] Extremities: [No clubbing, no edema, no cyanosis.] Neurological Exam: [No focal neurologic deficit.] - Labs CBC & Chem 7: 04/29/18 17:39 04/29/18 17:39 Labs: Abnormal Lab Results - Last 24 Hours (Table) 04/29/18 04/30/18 04/30/18 Range/Units 17:39 17:11 19:56 POC Glucose (mg/dL) 416 H 378 H (75-99) mg/dL Hemoglobin A1c 7.1 H (4.0-6.0) % 05/01/18 Range/Units 06:34 POC Glucose (mg/dL) 248 H (75-99) mg/dL Hemoglobin A1c (4.0-6.0) % Microbiology - Last 24 Hours (Table) 04/29/18 17:39 Blood Culture - Preliminary Blood No Growth after 24 hours Assessment and Plan Assessment: Impression: Acute exacerbation of COPD significantly improved, agree with discharge planning today. Multiple comorbidities including recurrent right-sided pleural effusion, chronic atrial fibrillation, hypothyroidism and previous history of thyroid cancer, chronic anemia, history of alcohol abuse, [id number] diabetes type 2, history of duodenal ulcer. Recommendation: Agree with discharge planning, patient is to keep his appointment with us in the office as scheduled. Time with Patient: Less than 30
--- NOTE | 2018-05-09 19:52 | DS ---
DISCHARGE SUMMARY DATE OF ADMISSION: 04/29/18 DATE OF DISCHARGE: 05/01/18. FINAL DIAGNOSES: 1. Acute chronic obstructive pulmonary disease exacerbation in a current smoker. 2. Essential hypertension. 3. Diabetes mellitus type 2 on oral hypoglycemic. 4. Chronic gait dysfunction. 5. Persistent atrial fibrillation not a candidate for anticoagulation. 6. Chronic thoracic spine osteoarthritis. 7. 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 8. Gastroesophageal reflux disease. 9. Moderate to severe mitral regurgitation, nonrheumatic. 10.Severe tricuspid regurgitation, nonrheumatic. 11.Severe secondary pulmonary hypertension secondary to chronic obstructive pulmonary disease. HOSPITAL COURSE: This patient presents with COPD exacerbation. Continues to smoke. Responded well to breathing treatment, steroids. The patient has known history of radiation proctitis with recurrent rectal bleeding and argon plasma coagulation in the past by Dr. Soliz. Also got radiation cystitis that follows with Dr. Guzman. Because of this, patient is felt not to be a candidate for anticoagulation because of frequent bleeding. The patient does use a walker to get about. Continues to smoke. Presented with COPD exacerbation. Doing better by the time of discharge. CONSULTATION: Dr. Esteban. PHYSICAL EXAMINATION: Temperature 98.2, pulse 109, respiration 16, blood pressure 103/63, pulse ox 97 percent. LUNGS: Decreased breath sounds. Mild wheezing. PSYCH: Awake, able to answer simple questions. LABS: White count 5.1, hemoglobin 8.2, BUN and creatinine are normal. DISCHARGE MEDICATIONS: 1. Symbicort 160/4.5, 2 puffs b.i.d. 2. Ventolin HFA 1 or 2 puffs q.i.d. 3. DuoNeb q.4h p.r.n. 4. Atrovent HFA 2 puffs q.i.d. 5. Synthroid 100 mcg p.o. daily. 6. Incruse Ellipta 1 puff daily. 7. Glucotrol 2.5 mg p.o. daily. 8. Glucophage 1000 mg p.o. daily. 9. Digoxin 125 mcg p.o. daily. 10.Lasix 40 mg p.o. daily. 11.Levaquin 5 mg a day 5 tablets. 12.Metoprolol 12.5 p.o. t.i.d. 13.Prednisone taper. FOLLOWUP: Follow up with Dr. Gee in 3 days. MMODL / IJN: [id number] /
== END 2018-05-01 13:40 | disposition home or self-care (01) ==
LOC: EC 17:19 → 3OBS 20:12
PROVIDERS: ADMIT Hospitalist; ATTEND Hospitalist
DX: J44.1 Chronic obstructive pulmonary disease with (acute) exacerbation (principal); J90 Pleural effusion, not elsewhere classified; I48.2 Chronic atrial fibrillation; I27.29 Other secondary pulmonary hypertension; I11.9 Hypertensive heart disease without heart failure; E11.65 Type 2 diabetes mellitus with hyperglycemia; T38.0X5A Adverse effect of glucocorticoids and synthetic analogues, initial encounter; F10.20 Alcohol dependence, uncomplicated; E89.0 Postprocedural hypothyroidism; K57.90 Diverticulosis of intestine, part unspecified, without perforation or abscess without bleeding; M17.0 Bilateral primary osteoarthritis of knee; M19.042 Primary osteoarthritis, left hand; M19.041 Primary osteoarthritis, right hand; I48.1 Persistent atrial fibrillation; M47.814 Spondylosis without myelopathy or radiculopathy, thoracic region; K21.9 Gastro-esophageal reflux disease without esophagitis; R26.9 Unspecified abnormalities of gait and mobility; F17.210 Nicotine dependence, cigarettes, uncomplicated; R53.1 Weakness; N30.41 Irradiation cystitis with hematuria; K62.7 Radiation proctitis; I36.1 Nonrheumatic tricuspid (valve) insufficiency; I34.0 Nonrheumatic mitral (valve) insufficiency; I35.0 Nonrheumatic aortic (valve) stenosis; D64.9 Anemia, unspecified; K76.9 Liver disease, unspecified; F41.9 Anxiety disorder, unspecified; F32.9 Major depressive disorder, single episode, unspecified; Z79.84 Long term (current) use of oral hypoglycemic drugs; Z79.890 Hormone replacement therapy; Z79.51 Long term (current) use of inhaled steroids; Z79.52 Long term (current) use of systemic steroids; Z79.899 Other long term (current) drug therapy; Z88.6 Allergy status to analgesic agent; Z85.850 Personal history of malignant neoplasm of thyroid; Z85.828 Personal history of other malignant neoplasm of skin; Z87.11 Personal history of peptic ulcer disease; Z92.3 Personal history of irradiation; Z85.46 Personal history of malignant neoplasm of prostate; Z87.01 Personal history of pneumonia (recurrent); Z87.19 Personal history of other diseases of the digestive system; Z98.42 Cataract extraction status, left eye; Z98.41 Cataract extraction status, right eye; Z91.81 History of falling; Z82.5 Family history of asthma and other chronic lower respiratory diseases; Z82.3 Family history of stroke; Z82.49 Family history of ischemic heart disease and other diseases of the circulatory system; Z81.2 Family history of tobacco abuse and dependence
CPT/HCPCS: 96376 ×3; 96374; 99285; 36415; 94640 ×5; 93005; 83880; 80053; 82550; 82553; 84484; 85025; 85610; 85730; 87040; 83036; 71046; G0378 ×3; J2930 ×3

== ENCOUNTER 2018-12-08 22:16 | Emergency (ER) | payer MEDICARE, OTHER ==
[2018-12-08 22:22] VITALS: RESP 18
[2018-12-08] MEDS ORDERED: HYDROcodone/APAP 5-325MG 1 EACH TAB PO STA (23:03)
--- NOTE | 2018-12-08 23:06 | ED ---
General Adult HPI - General Chief complaint: Extremity Injury, Lower Stated complaint: Foot Injury Time Seen by Provider: 12/08/18 22:46 Source: patient, EMS Mode of arrival: EMS Limitations: no limitations - History of Present Illness Initial comments: patient is an 83 year old male who presents with a CC right foot pain after accidentally getting his foot caught on the leg of a chair at the [facility] home. The patient states that he normally gets around with a scooter. He tried to patient's level of the table accidentally got his foot caught on a chair. States that after that, he took his medications try to abide. Patient states that he has like spasms while he tries to sleep and states that every time his leg spasms he has increased pain which is keeping him awake. The patient has not taken anything for pain at home. He has a history of diabetic neuropathy. He has no other complaints today. No other injuries reported. - Related Data Home Medications Medication Instructions Recorded Confirmed Ipratropium [place] [Atrovent Hfa] 2 puff INHALATION RT-QID 09/16/17 12/08/18 Levothyroxine Sodium [Synthroid] 100 mcg PO DAILY 09/16/17 12/08/18 Umeclidinium [place] [Incruse 1 puff INHALATION RT-DAILY 09/16/17 12/08/18 Ellipta] metFORMIN HCL [Glucophage] 500 mg PO BID 09/16/17 12/08/18 Dulaglutide [Trulicity] 0.75 mg SQ TH 12/08/18 12/08/18 Ferrous Gluconate 324 mg PO TID 12/08/18 12/08/18 Metoprolol Succinate [Toprol XL] 50 mg PO DAILY 12/08/18 12/08/18 Spironolactone 12.5 mg PO DAILY 12/08/18 12/08/18 Previous Rx's Medication Instructions Recorded Budesonide-Formot 160-4.5 Mcg 2 puff INHALATION RT-BID #1 inhaler 10/27/16 [Symbicort 160-4.5 Mcg Inhaler] Albuterol Inhaler [Ventolin Hfa 1 - 2 puff INHALATION RT-QID #0 01/13/17 Inhaler] Furosemide [Lasix] 40 mg PO DAILY #30 tab 05/01/18 Acetaminophen Tab [Tylenol Tab] 1,000 mg PO Q6HR #20 tablet 12/08/18 Allergies Allergy/AdvReac Type Severity Reaction Status Date / Time aspirin Allergy Rash/Hives Verified 12/08/18 22:46 Review of Systems ROS Statement: Those systems with pertinent positive or pertinent negative responses have been documented in the HPI. ROS Other: All systems not noted in ROS Statement are negative. Musculoskeletal: Reports: other (Foot pain) Past Medical History Past Medical History: Atrial Fibrillation, Cancer, COPD, Diabetes Mellitus, GERD/Reflux, Hypertension, Liver Disease, Osteoarthritis (OA), Pneumonia, Prostate Disorder, Thyroid Disorder Additional Past Medical History / Comment(s): COPD, chronic atrial fibrillation, thyroid cancer with a previous thyroidectomy, hypothyroidism, skin cancers with removals, prostate cancer with radiation, lower GI bleed thought secondary to radiation proctitis, diverticular disease, chronic anemia, duodenal ulcer, ETOH, history of ETOH withdrawal/delirium tremors, R leg weakness, history of falls, chronic lower extremity edema, arthritis thoracic spine. History of Any Multi-Drug Resistant Organisms: None Reported Past Surgical History: Bowel Resection Additional Past Surgical History / Comment(s): thyroidectomy, colonoscopy/polypectomy, skin cancer removed, bilateral cataracts, bowel resection-d/t diverticulits, sigmoidoscopy Past Anesthesia/Blood Transfusion Reactions: No Reported Reaction Additional Past Anesthesia/Blood Transfusion Reaction / Comment(s): has ahd blood transfusions-no reaction Past Psychological History: Anxiety, Depression Smoking Status: Current every day smoker Past Alcohol Use History: Abuse, Daily Past Drug Use History: None Reported - Past Family History Father Family Medical History: Asthma, CVA/TIA Additional Family Medical History / Comment(s): pacemaker, smoker Mother Family Medical History: Chest Pain / Angina Additional Family Medical History / Comment(s): smoker General Exam Limitations: no limitations General appearance: alert, in no apparent distress Head exam: Present: atraumatic, normocephalic Eye exam: Present: normal appearance ENT exam: Present: normal exam Neck exam: Present: normal inspection Respiratory exam: Present: normal lung sounds bilaterally. Absent: respiratory distress, wheezes Cardiovascular Exam: Present: regular rate, normal rhythm GI/Abdominal exam: Present: soft. Absent: distended, tenderness Rectal exam: Present: deferred Extremities exam: Present: other (Patient has tenderness to palpation of the right foot just proximal to his toes. There is no physical signs of trauma, pulses are intact bilaterally, patient has intact motor and sensation.) Back exam: Present: normal inspection Neurological exam: Present: alert, oriented X3 Psychiatric exam: Present: normal affect, normal mood Skin exam: Present: warm, dry, intact Course Vital Signs 12/08/18 22:19 Temperature 96.9 F L Pulse Rate 110 H Respiratory 18 Rate Blood Pressure 110/80 O2 Sat by Pulse 99 Oximetry Medical Decision Making - Medical Decision Making Patient presents with a chief complaint of foot pain. On initial evaluation, he is mildly tachycardic but otherwise in no acute distress. Patient is alert and oriented, answering questions appropriately. Patient will be sent for an x-ray of the right foot and ankle. He was given a [place] for pain. 11:37 PM Thank is a foreign ankle did not show any definite fractures. There is the appearance of soft tissue swelling consistent with contusion. At this time, patient stable for discharge. He was instructed to follow up with primary care 1-2 days, return to ED if symptoms worsen or change. Avoid bearing weight until followed up with primary care. Disposition Clinical Impression: Contusion Disposition: HOME SELF-CARE Condition: Good Instructions (If sedation given, give patient instructions): Foot Contusion (ED) Is patient prescribed a controlled substance at d/c from ED?: No Referrals: None,Stated [REFERRING] - 1-2 days Marietta Conti MD [STAFF PHYSICIAN] - 1-2 days
--- NOTE | 2018-12-08 23:26 | XR ---
History: ITS.REASON XR Reason: Pain Exam: XR RIGHT ANKLE 3 views Comparison: None available FINDINGS: No evidence of fracture or dislocation. Osteopenia. Vascular calcifications. Appearance of soft tissue swelling. IMPRESSION: No evidence of fracture or dislocation. Appearance of soft tissue swelling.
--- NOTE | 2018-12-08 23:29 | XR ---
History: ITS.REASON XR Reason: Pain Exam: XR RIGHT FOOT 3 views Comparison: None available FINDINGS: There is overlapping of toes on the AP view. No evidence of fracture or dislocation. Osteopenia. Vascular calcifications. IMPRESSION: There is overlapping of toes on the AP view. No evidence of fracture or dislocation.
[2018-12-09 00:51] VITALS: BP 106/76; PULSE 102
[2018-12-09 01:03] VITALS: TEMP 98.4
== END 2018-12-09 01:07 | disposition home or self-care (01) ==
LOC: EC 22:16
DX: S90.31XA Contusion of right foot, initial encounter (principal); J44.9 Chronic obstructive pulmonary disease, unspecified; E11.9 Type 2 diabetes mellitus without complications; I10 Essential (primary) hypertension; E03.9 Hypothyroidism, unspecified; F17.200 Nicotine dependence, unspecified, uncomplicated; Z79.51 Long term (current) use of inhaled steroids; Z79.890 Hormone replacement therapy; Z79.84 Long term (current) use of oral hypoglycemic drugs; Z79.899 Other long term (current) drug therapy; Z88.6 Allergy status to analgesic agent; Z85.828 Personal history of other malignant neoplasm of skin; Z85.850 Personal history of malignant neoplasm of thyroid; Z85.46 Personal history of malignant neoplasm of prostate; Z90.89 Acquired absence of other organs; Z92.3 Personal history of irradiation; W23.0XXA Caught, crushed, jammed, or pinched between moving objects, initial encounter; Y92.009 Unspecified place in unspecified non-institutional (private) residence as the place of occurrence of the external cause
CPT/HCPCS: 99284

== ENCOUNTER 2019-06-15 08:30 | Inpatient (IN) | payer MEDICARE, OTHER ==
[2019-06-15] MEDS ORDERED: MORPHINE SULFATE 2 MG/ML SYRINGE IM STA (08:40)
[2019-06-15] MEDS ORDERED: DIPH,PERTUS(ACELL)TETVAC-LF 0.5 ML VIAL IM ONE (08:43)
--- NOTE | 2019-06-15 09:23 | XR ---
EXAMINATION TYPE: XR thoracic spine complete DATE OF EXAM: 06/15/2019 CLINICAL HISTORY: pain TECHNIQUE: Frontal, lateral, and swimmer's view of thoracic spine are obtained. COMPARISON: None. FINDINGS: Thoracic spine show satisfactory alignment without evidence of acute fracture or dislocatio n. Vertebral body heights are preserved. Mild multilevel degenerative disc space narrowing and spond ylosis. Visualized ribs are unremarkable. IMPRESSION: No acute fracture or dislocation is seen in the thoracic spine. ICD 10 NO FRACTURE, INIT IAL EVALUATION
--- NOTE | 2019-06-15 09:27 | XR ---
EXAMINATION TYPE: XR ribs RT w pa chest xray DATE OF EXAM: 06/15/2019 COMPARISON: NONE HISTORY: Pain TECHNIQUE: Single view of the chest 4 views of the ribs are submitted. FINDINGS: The lungs are clear. No Evidence for pneumothorax. No evidence for focal contusion. Medi astinal structures are midline. Evidence of remote granulomatous disease. Evaluation of the ribs dem onstrates age-indeterminate fractures of right ribs 8 and 9 with a remote fracture right rib #10. IMPRESSION: 1. age-indeterminate fractures of right ribs 8 and 9 with a remote fracture right rib #10. 2. Right-sided pleural effusion
--- NOTE | 2019-06-15 09:27 | ED ---
Fall HPI - General Chief Complaint: Fall Stated Complaint: Back pain Time Seen by Provider: 06/15/19 08:32 Source: EMS Mode of arrival: EMS - History of Present Illness Initial Comments: 84-year-old male with history of peripheral neuropathy presenting to the emergency department for chief complaint of fall mid back pain. Patient states that approximately 2 days ago he fell when attempting to get up from a chair to his walker he states he fell backwards striking the right side of his mid back on the corner of a table. Patient denies any injury to the head or neck denies a low back pain. Patient states he has tenderness in the area where he struck his back and pain with deep inspiration. Patient denies any pain prior to the fall. Patient denies loss of consciousness denies chest pain source of breath or any abnormal symptoms prior to falling.Patient states he has a small tear near the area where he was struck in the nurses at the assisted care living applied a bandage. Patient unsure of his last tetanus vaccination. Patient states the soreness has increased over the past 2 days. Patient states her pain persists this morning he was sent to the emergency department for further evaluation. Patient denies any shortness of breath, loss of bowel bladder contr ol, urinary retention, new leg weakness or loss of sensation. Patient states that he also scrapped his left elbow but denies significant pain, limitations of ROM, swelling or redness. Remaining ROS (-). Upon arrival patient appears well there is no signs of acute distress. - Related Data Home Medications Medication Instructions Recorded Confirmed Ipratropium [place] [Atrovent Hfa] 2 puff INHALATION RT-QID 09/16/17 06/15/19 Umeclidinium [place] [Incruse 1 puff INHALATION RT-DAILY 09/16/17 06/15/19 Ellipta] metFORMIN HCL [Glucophage] 500 mg PO BID@0700,199909/16/17 06/15/19 Ferrous Gluconate 324 mg PO DAILY@1200 12/08/18 06/15/19 Metoprolol Succinate [Toprol XL] 75 mg PO DAILY@0700 12/08/18 06/15/19 Spironolactone 12.5 mg PO DAILY@0700 12/08/18 06/15/19 Albuterol Inhaler [Ventolin Hfa 2 puff INHALATION RT-Q4H PRN 06/15/19 06/15/19 Inhaler] Dulaglutide [Trulicity] 1.5 mg SQ FR 06/15/19 06/15/19 Furosemide [Lasix] 40 mg PO DAILY@0700 06/15/19 06/15/19 Levothyroxine Sodium [Synthroid] 112 mcg PO DAILY@0700 06/15/19 06/15/19 Previous Rx's Medication Instructions Recorded Budesonide-Formot 160-4.5 Mcg 2 puff INHALATION RT-BID #1 inhaler 10/27/16 [Symbicort 160-4.5 Mcg Inhaler] Allergies Allergy/AdvReac Type Severity Reaction Status Date / Time aspirin Allergy Rash/Hives Verified 06/15/19 10:53 Review of Systems ROS Statement: Those systems with pertinent positive or pertinent negative responses have been documented in the HPI. ROS Other: All systems not noted in ROS Statement are negative. Past Medical History Past Medical History: Atrial Fibrillation, Cancer, COPD, Diabetes Mellitus, GERD/Reflux, Hypertension, Liver Disease, Osteoarthritis (OA), Pneumonia, Prostate Disorder, Thyroid Disorder Additional Past Medical History / Comment(s): COPD, chronic atrial fibrillation, thyroid cancer with a previous thyroidectomy, hypothyroidism, skin cancers with removals, prostate cancer with radiation, lower GI bleed thought secondary to radiation proctitis, diverticular disease, chronic anemia, duodenal ulcer, ETOH, history of ETOH withdrawal/delirium tremors, R leg weakness, history of falls, chronic lower extremity edema, arthritis thoracic spine. History of Any Multi-Drug Resistant Organisms: None Reported Past Surgical History: Bowel Resection Additional Past Surgical History / Comment(s): thyroidectomy, colonoscopy/polypectomy, skin cancer removed, bilateral cataracts, bowel resection-d/t diverticulits, sigmoidoscopy Past Anesthesia/Blood Transfusion Reactions: No Reported Reaction Additional Past Anesthesia/Blood Transfusion Reaction / Comment(s): has ahd blood transfusions-no reaction Past Psychological History: Anxiety, Depression Smoking Status: Current every day smoker Past Alcohol Use History: Abuse, Daily Past Drug Use History: None Reported - Past Family History Father Family Medical History: Asthma, CVA/TIA Additional Family Medical History / Comment(s): pacemaker, smoker Mother Family Medical History: Chest Pain / Angina Additional Family Medical History / Comment(s): smoker General Exam - General Exam Comments Initial Comments: General: The patient is awake and alert, in no distress, and does not appear acutely ill. Eye: +3 mm pupils are equal, round and reactive to light, extra-ocular movements are intact. No nystagmus. There is normal conjunctiva bilaterally. No signs of icterus. Ears, nose, mouth and throat: There are moist mucous membranes and no oral lesions. No raccoon or Lu sign no scalp hematomas abrasions or lacerations Neck: The neck is supple, there is no tenderness or JVD. Cardiovascular: There is a regular rate and rhythm. No murmur, rub or gallop is appreciated. Respiratory: Lungs are clear to auscultation, respirations are non-labored, breath sounds are equal. No wheezes, stridor, rales, or rhonchi. Gastrointestinal: Soft, non-distended, non-tender abdomen without organomegaly noted. There is no rebound or guarding present. Large umbilical hernia, reducible, soft, nontender. Musculoskeletal: Inspection of the back reveals a right mid back skin tear, no redness. No large laceration. Patient very tender to palpation of the area. No midline tenderness to patient over the cervical thoracic or lumbar spine with fu ll range motion of the cervical spine. Normal ROM, no tenderness of the UE b and LE b/l. Strength 5/5 of the UE and LE b/l. Sensation intact of the UE and LE b/l. Radial and DP pulses equal bilaterally 2+. Neurological: A&O x 3. CN II-XII intact, There are no obvious motor or sensory deficits. Coordination appears grossly intact. Speech is normal. Skin: Skin is warm and dry and no rashes or lesions are noted. Psychiatric: Cooperative, appropriate mood & affect, normal judgment. Limitations: no limitations Course Vital Signs 06/15/19 06/15/19 06/15/19 08:38 08:39 11:57 Temperature 98.3 F 98.2 F 98 F Pulse Rate 91 101 H 105 H Respiratory 18 18 18 Rate Blood Pressure 105/85 105/85 111/76 O2 Sat by Pulse 93 L 96 100 Oximetry Medical Decision Making - Medical Decision Making 84yo male presenting to the emergency Department for chief complaint of fall right-sided mid back pain with skin tear. No significant increase from baseline shortness of breath. Denies chest pain. This revealed old heel rib fractures. There is evidence of increasing pleural effusion with in comparison with baseline pleural effusion. Troponin negative BNP increase from baseline. EKG revealed NS, read as atrial flutter but interpretted with attending. Patient hemodynamically stable. Will be admitted for further evaluation and treatment of enlarging pleural effusion compressive atelectasis. Pulm on consult. Discussed case with attenidng provider who is agreeable with admission and care plan. Patient agreeable to admission at this time. Ventricular after 11 bpm, QRS duration 94 ms, QT/QTC 384/552. - Lab Data Result diagrams: 06/15/19 10:10 06/15/19 10:10 Lab Results 06/15/19 06/15/19 06/15/19 Range/Units 10:10 10:10 10:10 WBC 6.2 (3.8-10.6) k/uL RBC 2.56 L (4.30-5.90) m/uL Hgb 9.9 L (13.0-17.5) gm/dL Hct 28.9 L (39.0-53.0) % MCV 112.8 H (80.0-100.0) fL MCH 38.5 H (25.0-35.0) pg MCHC 34.2 (31.0-37.0) g/dL RDW 15.3 (11.5-15.5) % Plt Count 297 (150-450) k/uL Neutrophils % 84 % Lymphocytes % 8 % Monocytes % 5 % Eosinophils % 1 % Basophils % 1 % Neutrophils # 5.2 (1.3-7.7) k/uL Lymphocytes # 0.5 L (1.0-4.8) k/uL Monocytes # 0.3 (0-1.0) k/uL Eosinophils # 0.1 (0-0.7) k/uL Basophils # 0.0 (0-0.2) k/uL Manual Slide Review Performed Poikilocytosis (manual Present Anisocytosis (manual) Present Macrocytosis Marked A Sodium 137 (137-145) mmol/L Potassium 4.4 (3.5-5.1) mmol/L Chloride 103 (98-107) mmol/L Carbon Dioxide 23 (22-30) mmol/L Anion Gap 11 mmol/L BUN 32 H (9-20) mg/dL Creatinine 1.12 (0.66-1.25) mg/dL Est GFR (CKD-EPI)AfAm 71 (>60 ml/min/1.73 sqM) Est GFR (CKD-EPI)NonAf 61 (>60 ml/min/1.73 sqM) Glucose 161 H (74-99) mg/dL Calcium 9.2 (8.4-10.2) mg/dL Total Bilirubin 0.8 (0.2-1.3) mg/dL AST 22 (17-59) U/L ALT 18 L (21-72) U/L Alkaline Phosphatase 114 (38-126) U/L Troponin I (0.000-0.034) ng/mL NT-Pro-B Natriuret Pep 6740 pg/mL Total Protein 7.2 (6.3-8.2) g/dL Albumin 3.9 (3.5-5.0) g/dL 06/15/19 Range/Units 10:10 WBC (3.8-10.6) k/uL RBC (4.30-5.90) m/uL Hgb (13.0-17.5) gm/dL Hct (39.0-53.0) % MCV (80.0-100.0) fL MCH (25.0-35.0) pg MCHC (31.0-37.0) g/dL RDW (11.5-15.5) % Plt Count (150-450) k/uL Neutrophils % % Lymphocytes % % Monocytes % % Eosinophils % % Basophils % % Neutrophils # (1.3-7.7) k/uL Lymphocytes # (1.0-4.8) k/uL Monocytes # (0-1.0) k/uL Eosinophils # (0-0.7) k/uL Basophils # (0-0.2) k/uL Manual Slide Review Poikilocytosis (manual Anisocytosis (manual) Macrocytosis Sodium (137-145) mmol/L Potassium (3.5-5.1) mmol/L Chloride (98-107) mmol/L Carbon Dioxide (22-30) mmol/L Anion Gap mmol/L BUN (9-20) mg/dL Creatinine (0.66-1.25) mg/dL Est GFR (CKD-EPI)AfAm (>60 ml/min/1.73 sqM) Est GFR (CKD-EPI)NonAf (>60 ml/min/1.73 sqM) Glucose (74-99) mg/dL Calcium (8.4-10.2) mg/dL Total Bilirubin (0.2-1.3) mg/dL AST (17-59) U/L ALT (21-72) U/L Alkaline Phosphatase (38-126) U/L Troponin I <0.012 (0.000-0.034) ng/mL NT-Pro-B Natriuret Pep pg/mL Total Protein (6.3-8.2) g/dL Albumin (3.5-5.0) g/dL Disposition Clinical Impression: Pleural effusion, Compressive atelectasis, Fall, Rib pain, Skin tear Disposition: ADMITTED IP TO THIS [facility] Condition: Stable Is patient prescribed a controlled substance at d/c from ED?: No Time of Disposition: Decision to Admit Reason: Admit from EC Decision Date: 06/15/19 Decision Time:
--- NOTE | 2019-06-15 10:33 | CT ---
EXAMINATION TYPE: CT chest wo con DATE OF EXAM: 06/15/2019 COMPARISON: Chest x-ray the same date HISTORY: Back pain after fall with known rib fractures. Surgical history of thyroidectomy and bowel r esection. CT DLP: 303 mGycm. Automated Exposure Control for Dose Reduction was Utilized. TECHNIQUE: CT scan of the thorax is performed without IV contrast. FINDINGS: LUNGS: There is a moderate to large right pleural effusion with associated right basilar airspace dis ease. High density in the right lower lung was not present on the prior exam however on the chest x-r ay of the same date no metallic density is seen and therefore this could represent interval developme nt of a dense granuloma. Granulomatous changes are seen throughout the mediastinum. Left lung demonst rates only multifocal subsegmental atelectasis. MEDIASTINUM: Extensive atherosclerosis of the thoracic aorta. And right main pulmonary artery is enla rged measuring 3.3 cm and left measures 2.9 cm, also enlarged. Global cardiomegaly is seen. Lack of I V contrast is noted to limit evaluation for mediastinal and especially hilar adenopathy. There are no definitive greater than 1 cm hilar or mediastinal lymph nodes. No pericardial effusion. OTHER: There are healed posterior fracture deformities of ribs 7, 8, 9, 10, and 11. Thyroid is surgic ally absent. Benign granulomatous changes of the spleen. Extensive atherosclerosis of the visualized abdominal aorta and its branches. Punctate granulomas of the liver. IMPRESSION: 1. Old healed fracture deformities of the posterior aspect of ribs 7 through 9. 2. Moderate to large right pleural effusion and associated compressive atelectasis. 3. Benign granulomatous changes of the mediastinum, liver and spleen and development of a dense proba ble benign calcification in the right lower lobe.
[2019-06-15 10:48] LABS: Albumin 3.9 g/dL (3.5-5.0); Calcium 9.2 mg/dL (8.4-10.2); Potassium 4.4 mmol/L (3.5-5.1); Total Bilirubin 0.8 mg/dL (0.2-1.3); Total Protein 7.2 g/dL (6.3-8.2)
[2019-06-15 10:49] LABS: Basophils % (A) 1 %; Eosinophils # (A) 0.1 k/uL (0-0.7); Eosinophils % (A) 1 %; HCT 28.9 % (39.0-53.0); HGB 9.9 gm/dL (13.0-17.5); Lymphocytes # (A) 0.5 k/uL (1.0-4.8); Lymphocytes % (A) 8 %; MCH 38.5 pg (25.0-35.0); MCHC 34.2 g/dL (31.0-37.0); MCV 112.8 fL (80.0-100.0); Macrocytosis Marked; Mean Platelet Volume 6.6; Monocytes # (A) 0.3 k/uL (0-1.0); Monocytes % (A) 5 %; Neutrophils # (A) 5.2 k/uL (1.3-7.7); Neutrophils % (A) 84 %; Platelet Count 297 k/uL (150-450); RBC 2.56 m/uL (4.30-5.90); RDW 15.3 % (11.5-15.5); WBC 6.2 k/uL (3.8-10.6)
[2019-06-15 11:10] LABS: Anisocytosis (M) Present; Poikilocytosis (M) Present
[2019-06-15] MEDS ORDERED: NALOXONE 0.4 MG/ML 1 ML VIAL IV PRN (11:23)
[2019-06-15] MEDS ORDERED: MORPHINE SULFATE 4 MG/ML SYRINGE IV PRN (11:23)
[2019-06-15] MEDS: SODIUM CHLORIDE 0.9% 1,000 ML IV SCH (12:18)
--- NOTE | 2019-06-15 12:35 | US ---
EXAMINATION TYPE: US chest DATE OF EXAM: 06/15/2019 COMPARISON: NONE CLINICAL HISTORY: for possible procedure if neede. TECHNIQUE: Targeted ultrasound of the posterior lower right hemithorax EXAM MEASUREMENTS: Right Pleural Effusion pocket size: 2.6 cm Right skin surface to fluid distance: 2.4 cm Right side marked for possible thoracentesis outside the dept. Pulmonologists are able to review the images in the patient?s EMR. IMPRESSIONS: Pleural effusion as noted.
[2019-06-15] MEDS ORDERED: ALBUTEROL NEBULIZED 2.5 MG/3 ML INHALATION PRN (13:09)
[2019-06-15] MEDS ORDERED: IPRATROPIUM-ALBUTEROL 3 ML NEB INHALATION PRN (14:46)
--- NOTE | 2019-06-15 14:46 | P.CNPUL ---
History of Present Illness Consult date: 06/15/19 Requesting physician: Ramez Redman Reason for consult: pleural effusion, abnormal CXR/CT Chief complaint: Right posterior chest pain History of present illness: This is a 84-year-old who is a resident at [facility], with past medical history of paroxysmal atrial fibrillation, COPD, diabetes mellitus type 2 with diabetic neuropathy, GERD/reflux, hypertension, osteoarthri tis, previous episode of pneumonia, October thyroidism, with history of thyroid cancer and thyroidectomy, prostate cancer treated with radiation, previous history of lower GI bleeding, chronic anemia, history of duodenal ulcer, previous history of EtOH with history of withdrawal/delirium tremens, who presented to the emergency department on 06/15/2019 after sustaining a fall 2 nights ago and striking his mid back on the corner of a table. Denied any injury to the head, denied any syncope, patient was apparently attempting to get up from a chair to his walker when she fell backwards. Patient has been having significant tenderness in the area and has been experiencing pain in his right posterior mid back area with deep inspiration and coughing. Denies any shortness of breath, seems fairly comfortable at rest, denied any fever or chills, denied any loss of bowel or bladder control, no lightheadedness or dizziness. Thoracic spine chest x-ray showed no acute fracture or dislocation. X-ray of the right side chest ribs showed old fractures of right ribs 8 through 9 with a remote fracture right rib 10. And right-sided pleural effusion. Chest CT without contrast showed old healed fracture deformities of the posterior aspect of ribs 7 through 9 and moderate right pleural effusion and associated compressive atelectasis, and benign granulomatous changes of the mediastinum liver and spleen and development of a dense probable benign calcification in the right lower lobe. Chest ultrasound revealed 2.6 cm pocket of pleural fluid on the right side. White blood cell count on the lab work was 6.2, hemoglobin is 9.9, electrolytes were within normal limits, B1 is 32 creatinine is 1.12. Troponin was negative 1, proBNP was 6740. Patient is seen in consultation for a small right-sided pleural effusion and right posterior chest wall pain due to history of recent fall. Review of Systems All systems: negative Constitutional: Denies chills, Denies fever Eyes: denies blurred vision, denies pain Ears, nose, mouth and throat: Denies headache, Denies sore throat Cardiovascular: Denies chest pain, Denies shortness of breath Respiratory: Denies cough Gastrointestinal: Denies abdominal pain, Denies diarrhea, Denies nausea, Denies vomiting Musculoskeletal: Denies myalgias Integumentary: Denies pruritus, Denies rash Neurological: Denies numbness, Denies weakness Psychiatric: Denies anxiety, Denies depression Endocrine: Denies fatigue, Denies weight change Past Medical History Past Medical History: Atrial Fibrillation, Cancer, COPD, Diabetes Mellitus, GERD/Reflux, Hypertension, Liver Disease, Osteoarthritis (OA), Pneumonia, Prostate Disorder, Thyroid Disorder Additional Past Medical History / Comment(s): COPD, chronic atrial fibrillation, thyroid cancer with a previous thyroidectomy, hypothyroidism, skin cancers with removals, prostate cancer with radiation, lower GI bleed thought secondary to radiation proctitis, diverticular disease, chronic anemia, duodenal ulcer, ETOH, history of ETOH withdrawal/delirium tremors, R leg weakness, history of falls, chronic lower extremity edema, arthritis thoracic spine. History of Any Multi-Drug Resistant Organisms: None Reported Past Surgical History: Bowel Resection Additional Past Surgical History / Comment(s): thyroidectomy, colonoscopy/polypectomy, skin cancer removed, bilateral cataracts, bowel resection-d/t diverticulits, sigmoidoscopy Past Anesthesia/Blood Transfusion Reactions: No Reported Reaction Additional Past Anesthesia/Blood Transfusion Reaction / Comment(s): has ahd blood transfusions-no reaction Past Psychological History: Anxiety, Depression Smoking Status: Current every day smoker Past Alcohol Use History: Abuse, Daily Past Drug Use History: None Reported - Past Family History Father Family Medical History: Asthma, CVA/TIA Additional Family Medical History / Comment(s): pacemaker, smoker Mother Family Medical History: Chest Pain / Angina Additional Family Medical History / Comment(s): smoker Medications and Allergies Home Medications Medication Instructions Recorded Confirmed Type Budesonide-Formot 160-4.5 Mcg 2 puff INHALATION RT-BID #1 inhaler 10/27/16 06/15/19 Rx [Symbicort 160-4.5 Mcg Inhaler] Ipratropium [place] [Atrovent Hfa] 2 puff INHALATION RT-QID 09/16/17 06/15/19 History Umeclidinium [place] [Incruse 1 puff INHALATION RT-DAILY 09/16/17 06/15/19 History Ellipta] metFORMIN HCL [Glucophage] 500 mg PO BID@0700,2000 09/16/17 06/15/19 History Ferrous Gluconate 324 mg PO DAILY@1200 12/08/18 06/15/19 History Metoprolol Succinate [Toprol XL] 75 mg PO DAILY@0700 12/08/18 06/15/19 History Spironolactone 12.5 mg PO DAILY@0700 12/08/18 06/15/19 History Albuterol Inhaler [Ventolin Hfa 2 puff INHALATION RT-Q4H PRN 06/15/19 06/15/19 History Inhaler] Dulaglutide [Trulicity] 1.5 mg SQ FR 06/15/19 06/15/19 History Furosemide [Lasix] 40 mg PO DAILY@0700 06/15/19 06/15/19 History Levothyroxine Sodium [Synthroid] 112 mcg PO DAILY@0700 06/15/19 06/15/19 History Allergies Allergy/AdvReac Type Severity Reaction Status Date / Time aspirin Allergy Rash/Hives Verified 06/15/19 10:53 Physical Exam Vitals: Vital Signs Temp Pulse Pulse Resp BP BP Pulse Ox 06/15/19 13:05 98.0 F 109 H 16 114/77 98 06/15/19 11:57 98 F 105 H 18 111/76 100 06/15/19 08:39 98.2 F 101 H 18 105/85 96 06/15/19 08:38 98.3 F 91 18 105/85 93 L Intake and Output 06/14/19 06/15/19 06/15/19 22:59 06:59 14:59 Other: Weight 61.235 kg GENERAL EXAM: Alert, 82-year-old white male, awake and alert, pleasant acute distress HEAD: Normocephalic/atraumatic. EYES: Normal reaction of pupils, equal size. Conjunctiva pink, sclera white. NOSE: Clear with pink turbinates. THROAT: No erythema or exudates. NECK: No masses, no JVD, no thyroid enlargement, no adenopathy. CHEST: No chest wall deformity. Symmetrical expansion. LUNGS: Equal air entry, diminished breath sounds over right lower lobe CVS: Irregular rate and rhythm, normal S1 and S2, no gallops, no murmurs, no rubs ABDOMEN: Soft, nontender. No hepatosplenomegaly, normal bowel sounds, no guarding or rigidity. EXTREMITIES: No clubbing, no cyanosis, 2+ pulses and upper and lower extremities. There is 2+ pitting bilateral lower leg edema MUSCULOSKELETAL: Muscle strength and tone normal. SPINE: No scoliosis or deformity SKIN: No rashes CENTRAL NERVOUS SYSTEM: Alert, oriented 3. No focal deficits, tone is normal in all 4 extremities. Results - Laboratory Findings CBC and BMP: 06/15/19 10:10 06/15/19 10:10 Abnormal lab findings: Abnormal Labs 06/15/19 06/15/19 10:10 10:10 RBC 2.56 L Hgb 9.9 L Hct 28.9 L MCV 112.8 H MCH 38.5 H Lymphocytes # 0.5 L Macrocytosis Marked A BUN 32 H Glucose 161 H ALT 18 L - Diagnostic Findings Chest x-ray: report reviewed, image reviewed CT scan - chest: report reviewed, image reviewed Assessment and Plan Plan: Assessment: #1. Right posterior chest pain related to history of recent fall and radiographic studies were negative for evidence of any new rib fractures, it did show old rib fractures #2. Small right-sided pleural effusion, ultrasound and the chest showing 2.6 cm pocket of fluid on the right side, CT of the chest was reviewed showing extensive atelectasis and moderate size pleural effusion #3. History of paroxysmal atrial fibrillation, currently in sinus rhythm not on any chronic anticoagulation #4. Chronic obstructive pulmonary disease, currently stable #5. GERD/reflux #6. Chronic anemia #7. History of previous GI bleeding #8. History of prostate cancer with radiation #9. Previous history of EtOH abuse, with history of EtOH withdrawal and delirium tremens #10. Diabetes mellitus with diabetic neuropathy #11. Previous history of pneumonia #12. History of duodenal ulcer Plan: Patient's breathing is stable, he denies any shortness of breath, his COPD seems to be stable, he is maintaining stable oxygenation on room air, no rhonchi, no wheezes, he is experiencing mild to moderate amount of pain with deep inspiration and coughing over his right posterior chest area he struck on the table in the time of this fall. No complaints of spatient is stable, x-rays of his thoracic ribs and CT of the chest reviewed, showing moderately sized pleural effusion on the right, and evidence of old fractures in the right side of his chest, ultrasound only showed 2.6 cm pocket of fluid on the right side. Clinically stable, no plans for thoracentesis at this time, provided incentive spirometer, continue with maintenance nebulized treatments and inhalers. Maintain pain control. I performed a history & physical examination of the patient and discussed their management with my nurse practitioner, Sujatha Barron. I reviewed the nurse practitioner's note and agree with the documented findings and plan of care. Lung sounds are positive for diminished breath sounds on right side . The findings and the impression was discussed with the patient. I attest to the documentation by the nurse practitioner. Time with Patient: Greater than 30
[2019-06-15 15:15] VITALS: BMI 21.3
[2019-06-15] MEDS ORDERED: NON FORMULARY DRUG (Ipratropium Bromide [Atrovent Hfa] 2 PUFF) INHALATION SCH (16:00)
[2019-06-15 17:39] LABS: Glucose,Whole Blood 210 mg/dL (75-99)
[2019-06-15] MEDS: INSULIN ASPART (NovoLOG) 100 UNIT/ML VIAL SQ SCH ×2 (17:42→20:50)
[2019-06-15] MEDS: metFORMIN 500 MG TAB PO SCH (19:58)
[2019-06-15] MEDS: SYMBICORT 160-4.5 MCG INHALER INHALATION SCH (20:16)
[2019-06-15 20:43] LABS: Glucose,Whole Blood 168 mg/dL (75-99)
--- NOTE | 2019-06-15 21:37 | P.HPIM ---
History of Present Illness H&P Date: 06/15/19 Chief Complaint: Back pain History of presenting complaint: This is a very pleasant 84-year-old patient of Dr. Gee. Chronic stable medical conditions include diabetes, GERD, hypertension, hypothyroid, diverticulosis, osteoarthritis, atrial fibrillation Candidate for anti coagulation because of bleeding. Also's had recurrent rectal bleeding because of radiation proctitis from PLUS COAGULATION. PATIENT ALSO HAS KNOWN RADIATION CYSTITIS AND DOES FOLLOW WITH DR. HEADLEY FROM UROLOGY. PATIENT ALSO HAS A SCOOTER THAT HE USES AT HOME. PATIENT HAS HELP AT HOME FROM VISITING NURSES. 2 nights ago while to get out of the scooter patient had a fall on the right side. Did find it difficult to get up. Still hurting. Decided to come in to the ER. Evidence of old fracture was found. Also significant large pleural effusion was present. Patient is a long-standing smoker. Has cough, shortness of breath and white sputum. Appetite is decreased. Has lost some weight. Over the period of time. Denies any fever and chills. 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 Lives alone. Has home health. Does use a scooter or wheelchair. Physical examination: VITAL SIGNS: 98.3, 91, 18, 105/85, 93% room air GENERAL: BMI 20.5, laying in bed. Anxious. EYES: Pupils equal. Conjunctiva normal. HEENT: External appearance of nose and ears normal, oral cavity grossly normal. NECK: JVD not raised; masses not palpable. HEART: First and second heart sounds are normal; no edema. LUNGS: Respiratory rate increased, decreased breath sounds some wheezing. ABDOMEN: Soft, nontender, liver spleen not palpable, no masses palpable. PSYCH: Alert and oriented x3; mood and affect anxiousl. NEUROLOGICAL: Cranial nerves grossly intact; no facial asymmetry, power and sensation grossly intact. LYMPHATICS: No lymph nodes palpable in the axilla and neck CHEST wall: Some tenderness on the right chest wall posteriorly INVESTIGATIONS, reviewed in the clinical context: White count 6.2 hemoglobin 9.9 potassium 4.4 creatinine 1.12 Thoracic spine [id number] for fracture, right-sided rib x-ray shows eighth ninth and 10th rib fracture. Right pleural effusion CT chest shows moderate to large right pleural effusion and compressive atelectasis Assessment: -Patient presented with right-sided chest wall pain after falling 2 nights ago. X-ray showing fracture of 7 through 10th rib fracture. -Large pleural effusion the duration of which is not known. Cannot state if this is the hemothorax. There is no bruising also on the chest. -Acute COPD exacerbation in a current smoker -Chronic nicotine dependence patient cigarette smoker -Essential hypertension -Diabetes mellitus type 2 on oral hypoglycemic -Chronic gait dysfunction uses a wheelchair -Persistent atrial fibrillation not a candidate for any anticoagulation -Chronic thoracic spine osteoarthritis -Hypothyroidism -GERD -Moderate to severe mitral regurgitation nonrheumatic -Severe tricuspid regurgitation nonrheumatic -Severe secondary pulmonary hypertension secondary to COPD Plan: -Patient be started on bronchodilators and steroids. Home medications resumed. Dr. Rowland from [place] was consulted. We'll also get a cardiothoracic opinion. Care was discussed with the patient question also.. Past Medical History Past Medical History: Atrial Fibrillation, Cancer, COPD, Diabetes Mellitus, GERD/Reflux, Hypertension, Liver Disease, Osteoarthritis (OA), Pneumonia, Prostate Disorder, Thyroid Disorder Additional Past Medical History / Comment(s): COPD, chronic atrial fibrillation, thyroid cancer with a previous thyroidectomy, hypothyroidism, skin cancers with removals, prostate cancer with radiation, lower GI bleed thought secondary to radiation proctitis, diverticular disease, chronic anemia, duodenal ulcer, ETOH, history of ETOH withdrawal/delirium tremors, R leg weakness, history of falls, chronic lower extremity edema, arthritis thoracic spine. History of Any Multi-Drug Resistant Organisms: None Reported Past Surgical History: Bowel Resection Additional Past Surgical History / Comment(s): thyroidectomy, colonoscopy/polypectomy, skin cancer removed, bilateral cataracts, bowel resection-d/t diverticulits, sigmoidoscopy Past Anesthesia/Blood Transfusion Reactions: No Reported Reaction Additional Past Anesthesia/Blood Transfusion Reaction / Comment(s): has ahd blood transfusions-no reaction Past Psychological History: Anxiety, Depression Smoking Status: Current every day smoker Past Alcohol Use History: Abuse, Daily Past Drug Use History: None Reported - Past Family History Father Family Medical History: Asthma, CVA/TIA Additional Family Medical History / Comment(s): pacemaker, smoker Mother Family Medical History: Chest Pain / Angina Additional Family Medical History / Comment(s): smoker Medications and Allergies Home Medications Medication Instructions Recorded Confirmed Type Budesonide-Formot 160-4.5 Mcg 2 puff INHALATION RT-BID #1 inhaler 10/27/16 06/15/19 Rx [Symbicort 160-4.5 Mcg Inhaler] Ipratropium [place] [Atrovent Hfa] 2 puff INHALATION RT-QID 09/16/17 06/15/19 History Umeclidinium [place] [Incruse 1 puff INHALATION RT-DAILY 09/16/17 06/15/19 History Ellipta] metFORMIN HCL [Glucophage] 500 mg PO BID@0700,199909/16/17 06/15/19 History Ferrous Gluconate 324 mg PO DAILY@1200 12/08/18 06/15/19 History Metoprolol Succinate [Toprol XL] 75 mg PO DAILY@0700 12/08/18 06/15/19 History Spironolactone 12.5 mg PO DAILY@0700 12/08/18 06/15/19 History Albuterol Inhaler [Ventolin Hfa 2 puff INHALATION RT-Q4H PRN 06/15/19 06/15/19 History Inhaler] Dulaglutide [Trulicity] 1.5 mg SQ FR 06/15/19 06/15/19 History Furosemide [Lasix] 40 mg PO DAILY@0700 06/15/19 06/15/19 History Levothyroxine Sodium [Synthroid] 112 mcg PO DAILY@0700 06/15/19 06/15/19 History Allergies Allergy/AdvReac Type Severity Reaction Status Date / Time aspirin Allergy Rash/Hives Verified 06/15/19 10:53 Physical Exam Vitals: Vital Signs Temp Pulse Pulse Resp BP BP Pulse Ox 06/15/19 19:25 98.7 F 113 H 16 114/77 96 06/15/19 15:00 98.2 F 113 H 17 97/65 98 06/15/19 13:05 98.0 F 109 H 16 114/77 98 06/15/19 11:57 98 F 105 H 18 111/76 100 06/15/19 08:39 98.2 F 101 H 18 105/85 96 06/15/19 08:38 98.3 F 91 18 105/85 93 L Intake and Output 06/15/19 06/15/19 06/15/19 06:59 14:59 22:59 Other: # Voids 3 Weight 61.235 kg Results CBC & Chem 7: 06/15/19 10:10 06/15/19 10:10 Labs: Abnormal Lab Results - Last 24 Hours (Table) 06/15/19 06/15/19 06/15/19 Range/Units 10:10 10:10 17:38 RBC 2.56 L (4.30-5.90) m/uL Hgb 9.9 L (13.0-17.5) gm/dL Hct 28.9 L (39.0-53.0) % MCV 112.8 H (80.0-100.0) fL MCH 38.5 H (25.0-35.0) pg Lymphocytes # 0.5 L (1.0-4.8) k/uL Macrocytosis Marked A BUN 32 H (9-20) mg/dL Glucose 161 H (74-99) mg/dL POC Glucose (mg/dL) 210 H (75-99) mg/dL ALT 18 L (21-72) U/L 06/15/19 Range/Units 20:41 RBC (4.30-5.90) m/uL Hgb (13.0-17.5) gm/dL Hct (39.0-53.0) % MCV (80.0-100.0) fL MCH (25.0-35.0) pg Lymphocytes # (1.0-4.8) k/uL Macrocytosis BUN (9-20) mg/dL Glucose (74-99) mg/dL POC Glucose (mg/dL) 168 H (75-99) mg/dL ALT (21-72) U/L
[2019-06-15] MEDS: NICOTINE 21MG/24HR PATCH TRANSDERM SCH (23:52)
[2019-06-16] MEDS: IPRATROPIUM-ALBUTEROL 3 ML NEB INHALATION SCH ×7 (00:28→23:18)
[2019-06-16] MEDS: SODIUM CHLORIDE 0.9% 1,000 ML IV SCH (01:40)
[2019-06-16] MEDS: LEVOTHYROXINE 112 MCG TAB PO SCH (06:21)
[2019-06-16] MEDS: FUROSEMIDE 40 MG TAB PO SCH (06:21)
[2019-06-16] MEDS: METOPROLOL SUCCINATE (ER) 25 MG TAB.ER.24H PO SCH (06:22)
[2019-06-16] MEDS: SPIRONOLACTONE 25 MG TAB PO SCH (06:22)
[2019-06-16] MEDS: metFORMIN 500 MG TAB PO SCH ×2 (06:22→19:23)
[2019-06-16 07:14] LABS: Glucose,Whole Blood 149 mg/dL (75-99)
[2019-06-16] MEDS ORDERED: IPRATROPIUM 0.5 MG/2.5 ML NEBU INHALATION SCH (08:00)
[2019-06-16] MEDS: INSULIN ASPART (NovoLOG) 100 UNIT/ML VIAL SQ SCH ×4 (08:08→20:41)
[2019-06-16] MEDS: SYMBICORT 160-4.5 MCG INHALER INHALATION SCH ×2 (08:43→20:54)
--- NOTE | 2019-06-16 10:27 | P.PN ---
Subjective Progress Note Date: 06/16/19 Principal diagnosis: Right posterior chest pain secondary to a fall. No new rib fractures on x-ray. Evidence of old rib fractures. This is a 84-year-old who is a resident at [facility], with past medical history of paroxysmal atrial fibrillation, COPD, diabetes mellitus type 2 with diabetic neuropathy, GERD/reflux, hypertension, osteoarthritis, previous episode of pneumonia, Rajwinder thyroidism, with history of thyroid cancer and thyroidectomy, prostate cancer treated with radiation, previous history of lower GI bleeding, chronic anemia, history of duodenal ulcer, previous history of EtOH with history of withdrawal/delirium tremens, who presented to the emergency department on 06/15/2019 after sustaining a fall 2 nights ago and striking his mid back on the corner of a table. Denied any injury to the head, denied any syncope, patient was apparently attempting to get up from a chair to his walker when she fell backwards. Patient has been having significant tenderness in the area and has been experiencing pain in his right posterior mid back area with deep inspiration and coughing. Denies any shortness of breath, seems fairly comfortable at rest, denied any fever or chills, denied any loss of bowel or bladder control, no lightheadedness or dizziness. Thoracic spine chest x-ray showed no acute fracture or dislocation. X-ray of the right side chest ribs showed old fractures of right ribs 8 through 9 with a remote fracture right rib 10. And right-sided pleural effusion. Chest CT without contrast showed old healed fracture deformities of the posterior aspect of ribs 7 through 9 and moderate right pleural effusion and associated c ompressive atelectasis, and benign granulomatous changes of the mediastinum liver and spleen and development of a dense probable benign calcification in the right lower lobe. Chest ultrasound revealed 2.6 cm pocket of pleural fluid on the right side. White blood cell count on the lab work was 6.2, hemoglobin is 9.9, electrolytes were within normal limits, B1 is 32 creatinine is 1.12. Troponin was negative 1, proBNP was 6740. Patient is seen in consultation for a small right-sided pleural effusion and right posterior chest wall pain due to history of recent fall. The patient is seen today 06/16/2019 in follow-up on the regular medical floor. He is currently awake and alert in no acute distress. Resting comfortably in bed. Maintaining O2 saturations in the high 90s on room air. He's been afebrile. Hemodynamically stable. He is continued on DuoNeb inhalations, Symbicort inhalations, oral diuretics. NicoDerm patch is in place. Ultrasound of the right chest revealed a pocket of only 2.6 cm. No plans for thoracentesis. Objective - Vital Signs Vital signs: Vital Signs Temp 98.5 F 06/16/19 07:00 Pulse 119 H 06/16/19 08:52 Resp 16 06/16/19 07:00 BP 98/65 06/16/19 07:00 Pulse Ox 99 06/16/19 07:00 Intake & Output 06/15/19 06/16/19 06/16/19 18:59 06:59 18:59 Intake Total 200 Balance 200 Weight 61.235 kg Intake: Intake, IV Titration 100 Amount Sodium Chloride 0.9% 1, 100 000 ml @ 20 mls/hr IV . Q24H NAIMA Rx#:[id number] Oral 100 Other: Voiding Method Urinal Urinal # Voids 3 1 - Exam GENERAL EXAM: Alert, pleasant 84-year-old male patient, awake and alert, no acute distress. On room air. HEAD: Normocephalic/atraumatic. EYES: Normal reaction of pupils, equal size. Conjunctiva pink, sclera white. NOSE: Clear with pink turbinates. THROAT: No erythema or exudates. NECK: No masses, no JVD, no thyroid enlargement, no adenopathy. CHEST: No chest wall deformity. Symmetrical expansion. LUNGS: Equal air entry, diminished breath sounds over right posterior base CVS: Irregular rate and rhythm, normal S1 and S2, no gallops, no murmurs, no rubs ABDOMEN: Soft, nontender. No hepatosplenomegaly, normal bowel sounds, no guarding or rigidity. EXTREMITIES: No clubbing, no cyanosis, 2+ pulses and upper and lower extremities. There is 2+ pitting bilateral lower leg edema MUSCULOSKELETAL: Muscle strength and tone normal. SPINE: No scoliosis or deformity SKIN: No rashes CENTRAL NERVOUS SYSTEM: Alert, oriented 3. No focal deficits, tone is normal in all 4 extremities. - Labs CBC & Chem 7: 06/15/19 10:10 06/15/19 10:10 Labs: Abnormal Lab Results - Last 24 Hours (Table) 06/15/19 06/15/19 06/15/19 Range/Units 10:10 10:10 17:38 RBC 2.56 L (4.30-5.90) m/uL Hgb 9.9 L (13.0-17.5) gm/dL Hct 28.9 L (39.0-53.0) % MCV 112.8 H (80.0-100.0) fL MCH 38.5 H (25.0-35.0) pg Lymphocytes # 0.5 L (1.0-4.8) k/uL Macrocytosis Marked A BUN 32 H (9-20) mg/dL Glucose 161 H (74-99) mg/dL POC Glucose (mg/dL) 210 H (75-99) mg/dL ALT 18 L (21-72) U/L 06/15/19 06/16/19 Range/Units 20:41 07:02 RBC (4.30-5.90) m/uL Hgb (13.0-17.5) gm/dL Hct (39.0-53.0) % MCV (80.0-100.0) fL MCH (25.0-35.0) pg Lymphocytes # (1.0-4.8) k/uL Macrocytosis BUN (9-20) mg/dL Glucose (74-99) mg/dL POC Glucose (mg/dL) 168 H 149 H (75-99) mg/dL ALT (21-72) U/L Assessment and Plan Assessment: #1. Right posterior chest pain related to history of recent fall and radiographic studies were negative for evidence of any new rib fractures, it did show old rib fractures #2. Small right-sided pleural effusion, ultrasound and the chest showing 2.6 cm pocket of fluid on the right side, CT of the chest was reviewed showing extensive atelectasis and moderate size pleural effusion #3. History of paroxysmal atrial fibrillation, currently in sinus rhythm not on any chronic anticoagulation #4. Chronic obstructive pulmonary disease, currently stable #5. GERD/reflux #6. Chronic anemia #7. History of previous GI bleeding #8. History of prostate cancer with radiation #9. Previous history of EtOH abuse, with history of EtOH withdrawal and delirium tremens #10. Diabetes mellitus with diabetic neuropathy #11. Previous history of pneumonia #12. History of duodenal ulcer Plan: The patient was seen and evaluated by Dr. Dr. Hook. He is currently stable from the pulmonary standpoint. On room air. No plans for thoracentesis. Continue bronchodilators. We'll see the patient on an as-needed basis. I, the cosigning physician, performed a history & physical examination of the patient. Lungs sounds diminished in the right posterior base. Maintaining good O2 saturations in the 90s on room air. I discussed the assessment and plan of care with my nurse practitioner, Radha Champion. I attest to the above note as dictated by her.
[2019-06-16 11:18] LABS: Glucose,Whole Blood 197 mg/dL (75-99)
--- NOTE | 2019-06-16 11:52 | P.GSCN ---
History of Present Illness Consult date: 06/16/19 Reason for Consult: Right pleural effusion Requesting physician: Ramez Redman History of present illness: This is an 84-year-old gentleman follows on an outpatient basis with Dr. Gee. He has a previous medical history of paroxysmal atrial fibrillation, COPD, diabetes, neuropathy, frequent falls, GERD, hypertension, osteoporosis, pneumonia, hypothyroidism with history of thyroid cancer status post thyroidectomy, prostate cancer, chronic anemia with history of lower GI bleeding, and EtOH history with DTs. He presented to [facility] emergency room from an assisted living facility 2 days status post fall with striking his mid right back on a table. He denied losing consciousness. He had a series of x-rays demonstrating old rib fractures on the right along with a right-sided pleural effusion. Computed tomography scan of the chest was also completed, again confirming old rib fractures and moderate right-sided pleural effusion. A chest ultrasound was completed demonstrating a 2.6 cm pleural fluid pocket on the right side. The patient was admitted for further evaluation and treatment. He was seen by pulmonology who did not feel thoracentesis was appropriate. Subsequently Dr. Guerra from cardiothoracic surgery was consulted for treatment recommendations. Review of Systems Review of systems was completed and was negative except as noted - Musculoskeletal Reports frequent falls, Reports low back pain Past Medical History Past Medical History: Atrial Fibrillation, Cancer, COPD, Diabetes Mellitus, GERD/Reflux, Hypertension, Liver Disease, Osteoarthritis (OA), Pneumonia, Prostate Disorder, Thyroid Disorder Additional Past Medical History / Comment(s): COPD, chronic atrial fibrillation, thyroid cancer with a previous thyroidectomy, hypothyroidism, skin cancers with removals, prostate cancer with radiation, lower GI bleed thought secondary to radiation proctitis, diverticular disease, chronic anemia, duodenal ulcer, ETOH, history of ETOH withdrawal/delirium tremors, R leg weakness, history of falls, chronic lower extremity edema, arthritis thoracic spine. History of Any Multi-Drug Resistant Organisms: None Reported Past Surgical History: Bowel Resection Additional Past Surgical History / Comment(s): thyroidectomy, colonoscopy/polypectomy, skin cancer removed, bilateral cataracts, bowel resection-d/t diverticulits, sigmoidoscopy Past Anesthesia/Blood Transfusion Reactions: No Reported Reaction Additional Past Anesthesia/Blood Transfusion Reaction / Comm: has ahd blood transfusions-no reaction Past Psychological History: Anxiety, Depression Smoking Status: Current every day smoker Past Alcohol Use History: Abuse, Daily Past Drug Use History: None Reported - Past Family History Father Family Medical History: Asthma, CVA/TIA Additional Family Medical History / Comment(s): pacemaker, smoker Mother Family Medical History: Chest Pain / Angina Additional Family Medical History / Comment(s): smoker Medications and Allergies Home Medications Medication Instructions Recorded Confirmed Type Budesonide-Formot 160-4.5 Mcg 2 puff INHALATION RT-BID #1 inhaler 10/27/16 06/15/19 Rx [Symbicort 160-4.5 Mcg Inhaler] Ipratropium [place] [Atrovent Hfa] 2 puff INHALATION RT-QID 09/16/17 06/15/19 History Umeclidinium [place] [Incruse 1 puff INHALATION RT-DAILY 09/16/17 06/15/19 History Ellipta] metFORMIN HCL [Glucophage] 500 mg PO BID@0700,199909/16/17 06/15/19 History Ferrous Gluconate 324 mg PO DAILY@1200 12/08/18 06/15/19 History Metoprolol Succinate [Toprol XL] 75 mg PO DAILY@0700 12/08/18 06/15/19 History Spironolactone 12.5 mg PO DAILY@0700 12/08/18 06/15/19 History Albuterol Inhaler [Ventolin Hfa 2 puff INHALATION RT-Q4H PRN 06/15/19 06/15/19 History Inhaler] Dulaglutide [Trulicity] 1.5 mg SQ FR 06/15/19 06/15/19 History Furosemide [Lasix] 40 mg PO DAILY@0700 06/15/19 06/15/19 History Levothyroxine Sodium [Synthroid] 112 mcg PO DAILY@0700 06/15/19 06/15/19 History Allergies Allergy/AdvReac Type Severity Reaction Status Date / Time aspirin Allergy Rash/Hives Verified 06/15/19 10:53 Surgical - Exam Vital Signs Temp Pulse Resp BP Pulse Ox 98.3 F 91 18 105/85 93 L 06/15/19 08:38 06/15/19 08:38 06/15/19 08:38 06/15/19 08:38 06/15/19 08:38 - General well developed, well nourished, no distress, moderate pain, chronically ill - Eyes PERRL, normal ocular movement - ENT decreased hearing - Neck no masses, no bruits, trachea midline - Respiratory Lungs sounds diminished bilaterally, right greater than left. Respirations even, nonlabored. Currently on room air with oxygen saturation 98%. Strong, productive cough. - Cardiovascular S1, S2 present. Irregular rate and rhythm, atrial fibrillation on telemetry. Palpable peripheral pulses bilaterally. Bilateral lower extremity edema present. No calf pain or tenderness noted. - Abdomen Abdomen: soft, non tender, bowel sounds - Genitourinary Deferred - Rectum Deferred - Integumentary no rash, no growths - Musculoskeletal normal posture - Psychiatric oriented to time, oriented to person, oriented to place, speech is normal Results - Labs 06/15/19 10:10 06/15/19 10:10 Abnormal Lab Results - Last 24 Hours (Table) 06/15/19 06/15/19 06/16/19 Range/Units 17:38 20:41 07:02 POC Glucose (mg/dL) 210 H 168 H 149 H (75-99) mg/dL 06/16/19 Range/Units 11:07 POC Glucose (mg/dL) 197 H (75-99) mg/dL - Imaging Chest x-ray: report reviewed, image reviewed CT scan - chest: report reviewed, image reviewed Assessment and Plan Assessment: 1. Right-sided pleural effusion 2. Paroxysmal atrial fibrillation on no anticoagulation 3. COPD 4. Diabetes 5. Neuropathy 6. Frequent falls 7. GERD 8. Hypertension 8. Osteoporosis 9. History of pneumonia 10. Hypothyroidism with history of thyroid cancer status post thyroidectomy 11. Prostate cancer 12. Chronic anemia with history of lower GI bleeding 13. EtOH history with DTs. Plan: The patient was seen and examined at bedside with Dr. Guerra. Chart/diagnostics were reviewed, including previous admissions. This patient appears to have a chronic moderate right-sided effusion, seen as far back as computed tomography scan from July 2017. The patient is in no distress, and has good oxygen saturation on room air. Our recommendation is for no surgical intervention. Patient's pain should be controlled. He should be encouraged to use incentive spirometer and increase activity as tolerated. Medical management per primary care service. No further recommendations. We will see this patient again on an as needed basis. Thank you Dr. Redman for this consult. Please call us with any further ques tions. Time with Patient: Greater than 30
[2019-06-16] MEDS: FERROUS SULFATE 325 MG TAB PO SCH (12:11)
[2019-06-16 17:08] LABS: Glucose,Whole Blood 207 mg/dL (75-99)
[2019-06-16] MEDS: NICOTINE 21MG/24HR PATCH TRANSDERM SCH (20:41)
[2019-06-16 20:45] LABS: Glucose,Whole Blood 186 mg/dL (75-99)
[2019-06-17] MEDS: IPRATROPIUM-ALBUTEROL 3 ML NEB INHALATION SCH ×3 (03:28→11:36)
[2019-06-17 07:15] LABS: Glucose,Whole Blood 182 mg/dL (75-99)
[2019-06-17] MEDS: INSULIN ASPART (NovoLOG) 100 UNIT/ML VIAL SQ SCH ×2 (07:18→12:29)
[2019-06-17] MEDS: FERROUS SULFATE 325 MG TAB PO SCH (07:37)
[2019-06-17] MEDS: FUROSEMIDE 40 MG TAB PO SCH (07:37)
[2019-06-17] MEDS: METOPROLOL SUCCINATE (ER) 25 MG TAB.ER.24H PO SCH (07:37)
[2019-06-17] MEDS: LEVOTHYROXINE 112 MCG TAB PO SCH (07:37)
[2019-06-17] MEDS: SPIRONOLACTONE 25 MG TAB PO SCH (07:37)
[2019-06-17] MEDS: metFORMIN 500 MG TAB PO SCH (07:37)
[2019-06-17] MEDS: SODIUM CHLORIDE 0.9% 1,000 ML IV SCH (07:39)
[2019-06-17] MEDS: SYMBICORT 160-4.5 MCG INHALER INHALATION SCH (08:16)
[2019-06-17 08:57] VITALS: BP 118/80; RESP 17; TEMP 98.2
[2019-06-17 11:56] VITALS: PULSE 100
== END 2019-06-17 12:53 | disposition home or self-care (01) | DRG 187 ==
LOC: EC 08:30 → 4SSUR 11:17
PROVIDERS: ADMIT Hospitalist; ATTEND Hospitalist
DX: J90 Pleural effusion, not elsewhere classified (principal); J98.11 Atelectasis; J44.1 Chronic obstructive pulmonary disease with (acute) exacerbation; N30.40 Irradiation cystitis without hematuria; E11.42 Type 2 diabetes mellitus with diabetic polyneuropathy; I27.29 Other secondary pulmonary hypertension; I48.0 Paroxysmal atrial fibrillation; I08.1 Rheumatic disorders of both mitral and tricuspid valves; D64.9 Anemia, unspecified; M54.9 Dorsalgia, unspecified; E89.0 Postprocedural hypothyroidism; F17.210 Nicotine dependence, cigarettes, uncomplicated; F32.9 Major depressive disorder, single episode, unspecified; F41.9 Anxiety disorder, unspecified; I10 Essential (primary) hypertension; K21.9 Gastro-esophageal reflux disease without esophagitis; K62.7 Radiation proctitis; M19.90 Unspecified osteoarthritis, unspecified site; M47.814 Spondylosis without myelopathy or radiculopathy, thoracic region; M81.0 Age-related osteoporosis without current pathological fracture; R29.6 Repeated falls; K57.90 Diverticulosis of intestine, part unspecified, without perforation or abscess without bleeding; R26.9 Unspecified abnormalities of gait and mobility; N42.9 Disorder of prostate, unspecified; Z79.51 Long term (current) use of inhaled steroids; Z79.84 Long term (current) use of oral hypoglycemic drugs; Z79.890 Hormone replacement therapy; Z79.899 Other long term (current) drug therapy; Z85.46 Personal history of malignant neoplasm of prostate; Z85.828 Personal history of other malignant neoplasm of skin; Z85.850 Personal history of malignant neoplasm of thyroid; Z87.01 Personal history of pneumonia (recurrent); Z87.11 Personal history of peptic ulcer disease; Z92.3 Personal history of irradiation; Z91.81 History of falling; Z90.49 Acquired absence of other specified parts of digestive tract; Z86.010 Personal history of colon polyps; Z88.6 Allergy status to analgesic agent; Z98.42 Cataract extraction status, left eye; Z98.41 Cataract extraction status, right eye; Z96.1 Presence of intraocular lens; Z82.5 Family history of asthma and other chronic lower respiratory diseases; Z82.3 Family history of stroke
CPT/HCPCS: 36415; 71250; 72072; 76604; 80053; 83880; 84484; 85025; 90471; 90715; 93005; 94640; 96372; 99285

== ENCOUNTER 2019-09-26 17:28 | Inpatient (IN) | payer MEDICARE, OTHER ==
[2019-09-26] MEDS ORDERED: SODIUM CHLORIDE 0.9% 1,000 ML IV STA ×3 (17:34→20:47)
[2019-09-26] MEDS ORDERED: IPRATROPIUM-ALBUTEROL 3 ML NEB INHALATION STA (17:34)
[2019-09-26] MEDS ORDERED: AZITHROMYCIN 500 MG in SODIUM CHLORIDE 0.9% 250 ML IVPB STA (17:35)
--- NOTE | 2019-09-26 17:37 | ED ---
SOB HPI - General Stated Complaint: Difficulty Breathing Time Seen by Provider: 09/26/19 17:31 Source: RN notes reviewed, old records reviewed Limitations: no limitations - History of Present Illness Initial Comments: This is a 34-year-old male DF for evaluation patient with us today for evaluation regards to shortness of breath patient known history of alcohol abuse no history of COPD severe shortness of breath with activity. No recent travel history no sick contacts. Patient usually refers coming into the ER. Patient has no current pain. Patient is very ornery and angry during history of present illness does not like to give history of present illness answer questions currently. MD Complaint: shortness of breath, cough -: days(s) Severity: moderate Severity scale (1-10): 4 Consistency: constant Improves With: nothing Worsens With: nothing Known History Of: COPD, congestive heart failure Context: recent URI, anxiety Associated Symptoms: denies other symptoms - Related Data Home Medications Medication Instructions Recorded Confirmed Ipratropium [place] [Atrovent Hfa] 2 puff INHALATION RT-QID 09/16/17 06/15/19 Umeclidinium [place] [Incruse 1 puff INHALATION RT-DAILY 09/16/17 06/15/19 Ellipta] metFORMIN HCL [Glucophage] 500 mg PO BID@0700,199909/16/17 06/15/19 Ferrous Gluconate 324 mg PO DAILY@1200 12/08/18 06/15/19 Metoprolol Succinate [Toprol XL] 75 mg PO DAILY@0700 12/08/18 06/15/19 Spironolactone 12.5 mg PO DAILY@0700 12/08/18 06/15/19 Albuterol Inhaler [Ventolin Hfa 2 puff INHALATION RT-Q4H PRN 06/15/19 06/15/19 Inhaler] Dulaglutide [Trulicity] 1.5 mg SQ FR 06/15/19 06/15/19 Furosemide [Lasix] 40 mg PO DAILY@0700 06/15/19 06/15/19 Levothyroxine Sodium [Synthroid] 112 mcg PO DAILY@0700 06/15/19 06/15/19 Previous Rx's Medication Instructions Recorded Budesonide-Formot 160-4.5 Mcg 2 puff INHALATION RT-BID #1 inhaler 10/27/16 [Symbicort 160-4.5 Mcg Inhaler] Allergies Allergy/AdvReac Type Severity Reaction Status Date / Time aspirin Allergy Rash/Hives Verified 06/15/19 10:53 Review of Systems ROS Statement: Those systems with pertinent positive or pertinent negative responses have been documented in the HPI. ROS Other: All systems not noted in ROS Statement are negative. Past Medical History Past Medical History: Atrial Fibrillation, Cancer, COPD, Diabetes Mellitus, GERD/Reflux, Hypertension, Liver Disease, Osteoarthritis (OA), Pneumonia, Prostate Disorder, Thyroid Disorder Additional Past Medical History / Comment(s): COPD, chronic atrial fibrillation, thyroid cancer with a previous thyroidectomy, hypothyroidism, skin cancers with removals, prostate cancer with radiation, lower GI bleed thought secondary to radiation proctitis, diverticular disease, chronic anemia, duodenal ulcer, ETOH, history of ETOH withdrawal/delirium tremors, R leg weakness, history of falls, chronic lower extremity edema, arthritis thoracic spine. History of Any Multi-Drug Resistant Organisms: None Reported Past Surgical History: Bowel Resection Additional Past Surgical History / Comment(s): thyroidectomy, colonoscopy/polypectomy, skin cancer removed, bilateral cataracts, bowel resection-d/t diverticulits, sigmoidoscopy Past Anesthesia/Blood Transfusion Reactions: No Reported Reaction Additional Past Anesthesia/Blood Transfusion Reaction / Comment(s): has ahd blood transfusions-no reaction Past Psychological History: Anxiety, Depression Smoking Status: Current every day smoker Past Alcohol Use History: Abuse, Daily Past Drug Use History: None Reported - Past Family History Father Family Medical History: Asthma, CVA/TIA Additional Family Medical History / Comment(s): pacemaker, smoker Mother Family Medical History: Chest Pain / Angina Additional Family Medical History / Comment(s): smoker General Exam General appearance: alert, in no apparent distress Head exam: Present: atraumatic, normocephalic, normal inspection Eye exam: Present: normal appearance, PERRL, EOMI. Absent: scleral icterus, conjunctival injection, periorbital swelling ENT exam: Present: normal exam, mucous membranes moist Neck exam: Present: normal inspection. Absent: tenderness, meningismus, lymphadenopathy Respiratory exam: Present: respiratory distress, wheezes, accessory muscle use, decreased breath sounds, prolonged expiratory. Absent: rales, rhonchi, stridor Cardiovascular Exam: Present: normal rhythm, tachycardia, normal heart sounds. Absent: systolic murmur, diastolic murmur, rubs, gallop, clicks GI/Abdominal exam: Present: soft, normal bowel sounds. Absent: distended, tenderness, guarding, rebound, rigid Extremities exam: Present: normal inspection, full ROM, normal capillary refill. Absent: tenderness, pedal edema, joint swelling, calf tenderness Back exam: Present: normal inspection Neurological exam: Present: alert, oriented X3, CN II-XII intact Psychiatric exam: Present: normal affect, normal mood Skin exam: Present: warm, dry, intact, normal color. Absent: rash Course Vital Signs 09/26/19 09/26/19 09/26/19 17:35 17:40 17:47 Temperature 100.2 F H Pulse Rate 110 H 109 H Respiratory 18 20 Rate Blood Pressure 118/62 O2 Sat by Pulse 95 Oximetry 09/26/19 09/26/19 09/26/19 18:06 19:14 19:59 Temperature 99.4 F Pulse Rate 108 H 96 106 H Respiratory 20 20 Rate Blood Pressure 102/58 84/54 O2 Sat by Pulse 95 97 Oximetry 09/26/19 20:42 Temperature Pulse Rate 106 H Respiratory 20 Rate Blood Pressure 100/59 O2 Sat by Pulse Oximetry - Reevaluation(s) Reevaluation #1: 09/26/19 19:25 Medical record is reviewed Reevaluation #2: 09/26/19 20:53 Patient feels better with hydration although still refusing to answer most questions - Consultations Consultation #1: Spoke with Dr. Redman was okay for admission Medical Decision Making - Medical Decision Making 84-year-old male DF for evaluation patient has a for evaluation of shortness of breath at this cough congestion fever with pneumonia. Patient be admitted for IV antibiotics, monitoring for alcohol withdrawal and IV hydration - Lab Data Result diagrams: 09/26/19 17:45 09/26/19 17:45 Lab Results 09/26/19 09/26/19 09/26/19 Range/Units 17:45 17:45 17:45 WBC 7.5 (3.8-10.6) k/uL RBC 3.10 L (4.30-5.90) m/uL Hgb 11.5 L (13.0-17.5) gm/dL Hct 34.1 L (39.0-53.0) % MCV 110.1 H (80.0-100.0) fL MCH 37.2 H (25.0-35.0) pg MCHC 33.8 (31.0-37.0) g/dL RDW 14.0 (11.5-15.5) % Plt Count 273 (150-450) k/uL Neutrophils % 87 % Lymphocytes % 5 % Monocytes % 5 % Eosinophils % 1 % Basophils % 0 % Neutrophils # 6.5 (1.3-7.7) k/uL Lymphocytes # 0.4 L (1.0-4.8) k/uL Monocytes # 0.4 (0-1.0) k/uL Eosinophils # 0.1 (0-0.7) k/uL Basophils # 0.0 (0-0.2) k/uL Macrocytosis Marked A PT 9.9 (9.0-12.0) sec INR 1.0 (<1.2) APTT 25.5 (22.0-30.0) sec Sodium 135 L (137-145) mmol/L Potassium 4.8 (3.5-5.1) mmol/L Chloride 96 L (98-107) mmol/L Carbon Dioxide 25 (22-30) mmol/L Anion Gap 14 mmol/L BUN 31 H (9-20) mg/dL Creatinine 1.42 H (0.66-1.25) mg/dL Est GFR (CKD-EPI)AfAm 53 (>60 ml/min/1.73 sqM) Est GFR (CKD-EPI)NonAf 46 (>60 ml/min/1.73 sqM) Glucose 146 H (74-99) mg/dL Plasma Lactic Acid Claus (0.7-2.0) mmol/L Calcium 9.1 (8.4-10.2) mg/dL Magnesium 1.6 (1.6-2.3) mg/dL Total Bilirubin 0.8 (0.2-1.3) mg/dL AST 32 (17-59) U/L ALT 11 (4-49) U/L Alkaline Phosphatase 107 (38-126) U/L Troponin I (0.000-0.034) ng/mL NT-Pro-B Natriuret Pep pg/mL Total Protein 7.1 (6.3-8.2) g/dL Albumin 4.1 (3.5-5.0) g/dL Serum Alcohol <10 mg/dL Influenza Type A RNA (Not Detectd) Influenza Type B (PCR) (Not Detectd) 09/26/19 09/26/19 09/26/19 Range/Units 17:45 17:45 17:45 WBC (3.8-10.6) k/uL RBC (4.30-5.90) m/uL Hgb (13.0-17.5) gm/dL Hct (39.0-53.0) % MCV (80.0-100.0) fL MCH (25.0-35.0) pg MCHC (31.0-37.0) g/dL RDW (11.5-15.5) % Plt Count (150-450) k/uL Neutrophils % % Lymphocytes % % Monocytes % % Eosinophils % % Basophils % % Neutrophils # (1.3-7.7) k/uL Lymphocytes # (1.0-4.8) k/uL Monocytes # (0-1.0) k/uL Eosinophils # (0-0.7) k/uL Basophils # (0-0.2) k/uL Macrocytosis PT (9.0-12.0) sec INR (<1.2) APTT (22.0-30.0) sec Sodium (137-145) mmol/L Potassium (3.5-5.1) mmol/L Chloride (98-107) mmol/L Carbon Dioxide (22-30) mmol/L Anion Gap mmol/L BUN (9-20) mg/dL Creatinine (0.66-1.25) mg/dL Est GFR (CKD-EPI)AfAm (>60 ml/min/1.73 sqM) Est GFR (CKD-EPI)NonAf (>60 ml/min/1.73 sqM) Glucose (74-99) mg/dL Plasma Lactic Acid Claus 2.0 (0.7-2.0) mmol/L Calcium (8.4-10.2) mg/dL Magnesium (1.6-2.3) mg/dL Total Bilirubin (0.2-1.3) mg/dL AST (17-59) U/L ALT (4-49) U/L Alkaline Phosphatase (38-126) U/L Troponin I <0.012 (0.000-0.034) ng/mL NT-Pro-B Natriuret Pep 5760 pg/mL Total Protein (6.3-8.2) g/dL Albumin (3.5-5.0) g/dL Serum Alcohol mg/dL Influenza Type A RNA (Not Detectd) Influenza Type B (PCR) (Not Detectd) 09/26/19 Range/Units 17:45 WBC (3.8-10.6) k/uL RBC (4.30-5.90) m/uL Hgb (13.0-17.5) gm/dL Hct (39.0-53.0) % MCV (80.0-100.0) fL MCH (25.0-35.0) pg MCHC (31.0-37.0) g/dL RDW (11.5-15.5) % Plt Count (150-450) k/uL Neutrophils % % Lymphocytes % % Monocytes % % Eosinophils % % Basophils % % Neutrophils # (1.3-7.7) k/uL Lymphocytes # (1.0-4.8) k/uL Monocytes # (0-1.0) k/uL Eosinophils # (0-0.7) k/uL Basophils # (0-0.2) k/uL Macrocytosis PT (9.0-12.0) sec INR (<1.2) APTT (22.0-30.0) sec Sodium (137-145) mmol/L Potassium (3.5-5.1) mmol/L Chloride (98-107) mmol/L Carbon Dioxide (22-30) mmol/L Anion Gap mmol/L BUN (9-20) mg/dL Creatinine (0.66-1.25) mg/dL Est GFR (CKD-EPI)AfAm (>60 ml/min/1.73 sqM) Est GFR (CKD-EPI)NonAf (>60 ml/min/1.73 sqM) Glucose (74-99) mg/dL Plasma Lactic Acid [place] (0.7-2.0) mmol/L Calcium (8.4-10.2) mg/dL Magnesium (1.6-2.3) mg/dL Total Bilirubin (0.2-1.3) mg/dL AST (17-59) U/L ALT (4-49) U/L Alkaline Phosphatase (38-126) U/L Troponin I (0.000-0.034) ng/mL NT-Pro-B Natriuret Pep pg/mL Total Protein (6.3-8.2) g/dL Albumin (3.5-5.0) g/dL Serum Alcohol mg/dL Influenza Type A RNA Not Detected (Not Detectd) Influenza Type B (PCR) Not Detected (Not Detectd) - EKG Data -: EKG Interpreted by Me (EKG junctional rhythm rate 110 QRS 88 QTc 527) - Radiology Data Radiology results: report reviewed (Chest x-rays positive for pneumonia), image reviewed Disposition Clinical Impression: EtOH dependence, COPD (chronic obstructive pulmonary disease), High risk for readmission, Community acquired pneumonia Disposition: ADMITTED IP TO THIS HOSP Condition: Fair Is patient prescribed a controlled substance at d/c from ED?: No Referrals: Jesse Gee MD [Primary Care Provider] - 1-2 days
[2019-09-26] MEDS ORDERED: IBUPROFEN 600 MG TAB PO STA (17:45)
[2019-09-26] MEDS ORDERED: ACETAMINOPHEN TAB 500 MG TAB PO STA (17:45)
[2019-09-26 18:17] LABS: ALT 11 U/L (4-49); AST 32 U/L (17-59); African American GFR (CKD) 53 (>60 ml/min/1.73 sqM); Albumin 4.1 g/dL (3.5-5.0); Alcohol <10 mg/dL; Alkaline Phosphatase 107 U/L (38-126); Anion Gap 14 mmol/L; Blood Urea Nitrogen 31 mg/dL (9-20); Calcium 9.1 mg/dL (8.4-10.2); Carbon Dioxide 25 mmol/L (22-30); Chloride 96 mmol/L (98-107); Glucose 146 mg/dL (74-99); Magnesium 1.6 mg/dL (1.6-2.3); Non-African American GFR(CKD) 46 (>60 ml/min/1.73 sqM); Potassium 4.8 mmol/L (3.5-5.1); Sodium 135 mmol/L (137-145); Total Bilirubin 0.8 mg/dL (0.2-1.3); Total Protein 7.1 g/dL (6.3-8.2)
[2019-09-26 18:18] LABS: Partial Thromboplastin Time 25.5 sec (22.0-30.0); Prothrombin Time 9.9 sec (9.0-12.0)
[2019-09-26 18:35] LABS: Basophils % (A) 0 %; Eosinophils # (A) 0.1 k/uL (0-0.7); Eosinophils % (A) 1 %; HCT 34.1 % (39.0-53.0); HGB 11.5 gm/dL (13.0-17.5); Lymphocytes # (A) 0.4 k/uL (1.0-4.8); Lymphocytes % (A) 5 %; MCH 37.2 pg (25.0-35.0); MCHC 33.8 g/dL (31.0-37.0); MCV 110.1 fL (80.0-100.0); Macrocytosis Marked; Mean Platelet Volume 8.3; Monocytes # (A) 0.4 k/uL (0-1.0); Monocytes % (A) 5 %; Neutrophils # (A) 6.5 k/uL (1.3-7.7); Neutrophils % (A) 87 %; Platelet Count 273 k/uL (150-450); WBC 7.5 k/uL (3.8-10.6)
--- NOTE | 2019-09-26 18:48 | XR ---
EXAMINATION TYPE: XR chest 2V DATE OF EXAM: 09/26/2019 COMPARISON: 08/14/2019 HISTORY: Difficulty breathing TECHNIQUE: FINDINGS: There is extensive airspace consolidation right lower lobe with pleural effusion. Heart jose alfredo ears slightly enlarged. Heart is shifted slightly to the right side. Left lung is clear of consolidat ion. There is some coarsening of interstitial left pulmonary markings. There are chest leads. There i s no obvious heart failure. IMPRESSION: There is pleural effusion and consolidation and atelectasis in the right lung slightly wo rse than last exam. Pulmonary vascularity increased slightly compared to last exam but no obvious hea rt failure.
[2019-09-26] MEDS ORDERED: SODIUM CHLORIDE 0.9% 500 ML 500 ML IV STA (20:47)
[2019-09-26] MEDS ORDERED: THIAMINE 100 MG/ML 2 ML VIAL IM STA (20:48)
[2019-09-26] MEDS ORDERED: PNEUMONIA PROTOCOL UTILIZED 1 EACH MISC PO PRN (20:48)
[2019-09-26] MEDS ORDERED: LORazepam 2 MG/ML INJ IV PRN ×3 (20:48)
[2019-09-26] MEDS: SODIUM CHLORIDE 0.9% 1,000 ML IV SCH (21:51)
[2019-09-27 06:43] LABS: Appearance,Urine Cloudy (Clear); Bacteria,Urine Rare /hpf; Bilirubin,Urine Negative (Negative); Blood,Urine Negative (Negative); Budding Yeast,Urine Rare /hpf; Color,Urine Yellow; Glucose,Urine (UA) Negative (Negative); Hyaline Casts,Urine 10 /lpf (0-2); Ketones,Urine Negative (Negative); Leukocyte Esterase,Urine Large (Negative); Mucus,Urine Rare /hpf; Nitrite,Urine Negative (Negative); PH, Urine 5.5 (5.0-8.0); Protein,Urine Trace (Negative); RBC,Urine 3 /hpf (0-5); Specific Gravity,Urine 1.014 (1.001-1.035); Squamous Epithelial Cell,Urine 1 /hpf (0-4); Urobilinogen,Urine <2.0 mg/dL (<2.0); WBC,Urine 95 /hpf (0-5)
[2019-09-27 07:08] LABS: Glucose,Whole Blood 130 mg/dL (75-99)
[2019-09-27] MEDS: ENOXAPARIN 40 MG/0.4 ML SYRINGE SQ SCH (08:26)
[2019-09-27] MEDS: THIAMINE 100 MG TAB PO SCH ×2 (08:26→17:13)
[2019-09-27] MEDS: SODIUM CHLORIDE 0.9% 1,000 ML IV SCH (08:29)
[2019-09-27] MEDS ORDERED: SYMBICORT 160-4.5 MCG INHALER INHALATION SCH (09:13)
[2019-09-27] MEDS ORDERED: POLYETHYLENE GLYCOL 3350 17 GM POWD.PACK PO PRN (09:13)
[2019-09-27 10:35] VITALS: BMI 21.2
[2019-09-27] MEDS: IPRATROPIUM-ALBUTEROL 3 ML NEB INHALATION SCH ×4 (10:56→21:33)
--- NOTE | 2019-09-27 11:56 | P.CNPUL ---
History of Present Illness Consult date: 09/27/19 Reason for consult: pleural effusion History of present illness: This is a pleasant 84-year-old male patient who came into the hospital because o f worsening shortness of breath and cough. He also had some increased chest congestion and he felt that he was feverish. There was no documented temperature than 100.2 at a time of admission. His chest x-ray from today showing a volume loss in addition to a large right-sided pleural effusion. On examination is marked diminished breath sounds on the right. There is an old chronic problem. I have drained this patient in the past back in 2018 on 2 separate occasions and the fluid was essentially change. The last CAT scan of the chest that was done on this patient on 06/15/2019, showed old healed fracture deformity in the posterior aspect of the seventh through ninth rib in addition to moderate-sized right-sided pleural effusion, mediastinal calcification, coronary calcification, and there was evidence of any also granulomatous disease. There was also granulomatous changes involving the spleen and the right lower lobe all indicating a previous granulomatous infection either an old histoplasma or old sarcoidosis versus latent TB. In any rate, the patient also multiple comorbidities. He has COPD, diabetes mellitus type 2 on diabetic neuropathy, hypertension, osteoarthritis, history of thyroid cancer post-thyroidectomy and he is hypothyroidism for now, history of prostate cancer treated with radiation therapy, chronic anemia, duodenal ulcer, history of alcoholism and history of previous GI bleeding. His influenza screen for now is negative. And the white count is normal. The last echocardiogram from 2018 showed an ejection fraction of 5055% and the patient had moderate aortic stenosis and severe mitral regurgitation. Right-sided pressures were 53 mmHg. Review of Systems CONSTITUTIONAL: Denies fever. Denies chills. Chronic weight loss and medical debility. EYES: Denies blurred vision. Denies vision changes. Denies eye pain. EARS, NOSE, MOUTH & THROAT: Denies headache. Denies sore throat. Denies ear pain. CARDIOVASCULAR: Denies chest pain. Describes increased shortness of breath and cough and congestion.. Denies orthopnea. Denies PND. Denies palpitations. RESPIRATORY: Admits to have limited cough and dyspnea and chest congestion and wheeze. GASTROINTESTINAL: Denies abdominal pain. Denies diarrhea. Denies constipation. Denies nausea. Denies vomiting. MUSCULOSKELETAL: right shoulder and arm pain. Chronic weakness of the RLE and history of falls INTEGUMENTARY: Denies pruitis. Denies rash. NEUROLOGIC: Denies numbness. Denies tingling. RLE weakness. Increased risk of falls, and there is some memory difficulties and possibly dementia. PSYCHIATRIC: Denies anxiety. Denies depression. ENDOCRINE: Denies fatigue. Denies weight change. Denies polydipsia. Denies polyurina. GENITOURINARY: Denies burning, hematuria or urgency with micturation. HEMATOLOGIC: Denies history of anemia. Denies bleeding. Past Medical History Past Medical History: Atrial Fibrillation, Cancer, COPD, Diabetes Mellitus, GERD/Reflux, Hypertension, Liver Disease, Neurologic Disorder, Osteoarthritis (OA), Pneumonia, Prostate Disorder, Thyroid Disorder Additional Past Medical History / Comment(s): latent TB, diabetic neuropathy, COPD, chronic atrial fibrillation, thyroid cancer with a previous thyroidectomy, hypothyroidism, skin cancers with removals, prostate cancer with radiation, lower GI bleed thought secondary to radiation proctitis, diverticular disease, chronic anemia, duodenal ulcer, ETOH, history of ETOH withdrawal/delirium tremors, R leg weakness, history of falls, chronic lower extremity edema, arthritis thoracic spine. History of Any Multi-Drug Resistant Organisms: None Reported Past Surgical History: Bowel Resection Additional Past Surgical History / Comment(s): thyroidectomy, colono scopy/polypectomy, skin cancer removed, bilateral cataracts, bowel resection-d/t diverticulits, sigmoidoscopy Past Anesthesia/Blood Transfusion Reactions: No Reported Reaction Additional Past Anesthesia/Blood Transfusion Reaction / Comment(s): has had blood transfusions-no reaction Past Psychological History: Anxiety, Depression Additional Psychological History / Comment(s): pt stated he lives at [facility],has motorized w/c and 2 -4 wheeled walkers. has home care but can't remember name of company.. 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 Smoking Status: Current every day smoker Past Alcohol Use History: Abuse, Daily Additional Past Alcohol Use History / Comment(s): started smoking in his mid 40's, 1ppd, pt stated he drinks 3 drinks per day Past Drug Use History: None Reported - Past Family History Father Family Medical History: Asthma, CVA/TIA Additional Family Medical History / Comment(s): pacemaker, smoker Mother Family Medical History: Chest Pain / Angina Additional Family Medical History / Comment(s): smoker Medications and Allergies Home Medications Medication Instructions Recorded Confirmed Type Ipratropium [place] [Atrovent Hfa] 2 puff INHALATION RT-QID 09/16/17 09/26/19 History Umeclidinium [place] [Incruse 1 puff INHALATION RT-DAILY@69909/16/17 09/26/19 History Ellipta] metFORMIN HCL [Glucophage] 500 mg PO BID@699,199909/16/17 09/26/19 History Ferrous Gluconate 324 mg PO DAILY@119912/08/18 09/26/19 History Metoprolol Succinate [Toprol XL] 75 mg PO DAILY@69912/08/18 09/26/19 History Spironolactone 12.5 mg PO DAILY@69912/08/18 09/26/19 History Albuterol Inhaler [Ventolin Hfa 2 puff INHALATION RT-Q4H PRN 06/15/19 09/26/19 History Inhaler] Dulaglutide [Trulicity] 1.5 mg SQ SA@79906/15/19 09/26/19 History Furosemide [Lasix] 40 mg PO DAILY@69906/15/19 09/26/19 History Levothyroxine Sodium [Synthroid] 112 mcg PO DAILY@69906/15/19 09/26/19 History Budesonide-Formot 160-4.5 Mcg 2 puff INHALATION RT-BID@699,199909/26/19 09/26/19 History [Symbicort 160-4.5 Mcg Inhaler] Cetirizine HCl 10 mg PO DAILY@69909/26/19 09/26/19 History Polyethylene Glycol 3350 [Miralax] 17 gm PO DAILY PRN 09/26/19 09/26/19 History Allergies Allergy/AdvReac Type Severity Reaction Status Date / Time aspirin Allergy Rash/Hives Verified 09/26/19 21:26 Physical Exam Vitals: Vital Signs Temp Pulse Pulse Resp BP BP Pulse Ox 09/27/19 11:25 96 09/27/19 11:11 100 09/27/19 07:00 98.0 F 105 H 16 98/66 100 09/27/19 04:00 18 09/27/19 02:50 98.3 F 105 H 18 91/63 99 03/05/20 00:00 18 09/26/19 22:21 20 09/26/19 22:15 98.2 F 104 H 19 95/58 100 09/26/19 20:42 106 H 20 100/59 09/26/19 19:59 99.4 F 106 H 20 84/54 97 09/26/19 19:14 96 20 102/58 95 09/26/19 18:06 108 H 09/26/19 17:47 109 H 09/26/19 17:40 20 09/26/19 17:35 100.2 F H 110 H 18 118/62 95 Intake and Output 09/26/19 09/27/19 09/27/19 22:59 06:59 14:59 Intake Total 296 Output Total 50 Balance 246 Intake: Oral 296 Output: Urine 50 Other: Voiding Method Urinal Urinal Urinal Diaper Diaper Diaper Incontinent Incontinent Incontinent # Voids 1 # Bowel Movements 1 Weight 63.503 kg 63.503 kg GENERAL EXAM: Alert, 84-year-old white male, somewhat a poor historian and looks quite debilitated and cachectic for now HEAD: Normocephalic/atraumatic. EYES: Normal reaction of pupils, equal size. Conjunctiva pink, sclera white. NOSE: Clear with pink turbinates. THROAT: No erythema or exudates. NECK: No masses, no JVD, no thyroid enlargement, no adenopathy. CHEST: No chest wall deformity. Symmetrical expansion. LUNGS: Marked diminished breath on the right lung base compared to the left along with some dullness to percussion. CVS: Irregular rate and rhythm, normal S1 and S2, no gallops, no murmurs, no rubs ABDOMEN: Soft, nontender. No hepatosplenomegaly, normal bowel sounds, no guarding or rigidity. EXTREMITIES: No clubbing, no cyanosis, 2+ pulses and upper and lower extremities. There is minimal edema in lower extremities bilaterally. MUSCULOSKELETAL: Muscle strength and tone normal. No open wounds or sores or ulceration. SPINE: No scoliosis or deformity SKIN: No rashes CENTRAL NERVOUS SYSTEM: Alert and oriented -3. No focal deficits, tone is normal in all 4 extremities. PSYCHIATRIC: Alert and oriented -3. Irritable Results - Laboratory Findings CBC and BMP: 09/26/19 17:45 09/26/19 17:45 ABG WBC 7.5 k/uL (3.8-10.6) 09/26/19 17:45 RBC 3.10 m/uL (4.30-5.90) L 09/26/19 17:45 Hgb 11.5 gm/dL (13.0-17.5) L 09/26/19 17:45 Hct 34.1 % (39.0-53.0) L 09/26/19 17:45 MCV 110.1 fL (80.0-100.0) H 09/26/19 17:45 MCH 37.2 pg (25.0-35.0) H 09/26/19 17:45 MCHC 33.8 g/dL (31.0-37.0) 09/26/19 17:45 RDW 14.0 % (11.5-15.5) 09/26/19 17:45 Plt Count 273 k/uL (150-450) 09/26/19 17:45 Neutrophils % 87 % 09/26/19 17:45 Lymphocytes % 5 % 09/26/19 17:45 Monocytes % 5 % 09/26/19 17:45 Eosinophils % 1 % 09/26/19 17:45 Basophils % 0 % 09/26/19 17:45 Neutrophils # 6.5 k/uL (1.3-7.7) 09/26/19 17:45 Lymphocytes # 0.4 k/uL (1.0-4.8) L 09/26/19 17:45 Monocytes # 0.4 k/uL (0-1.0) 09/26/19 17:45 Eosinophils # 0.1 k/uL (0-0.7) 09/26/19 17:45 Basophils # 0.0 k/uL (0-0.2) 09/26/19 17:45 Macrocytosis Marked A 09/26/19 17:45 PT 9.9 sec (9.0-12.0) 09/26/19 17:45 INR 1.0 (<1.2) 09/26/19 17:45 APTT 25.5 sec (22.0-30.0) 09/26/19 17:45 Sodium 135 mmol/L (137-145) L 09/26/19 17:45 Potassium 4.8 mmol/L (3.5-5.1) 09/26/19 17:45 Chloride 96 mmol/L (98-107) L 09/26/19 17:45 Carbon Dioxide 25 mmol/L (22-30) 09/26/19 17:45 Anion Gap 14 mmol/L 09/26/19 17:45 BUN 31 mg/dL (9-20) H 09/26/19 17:45 Creatinine 1.42 mg/dL (0.66-1.25) H 09/26/19 17:45 Est GFR (CKD-EPI)AfAm 53 (>60 ml/min/1.73 sqM) 09/26/19 17:45 Est GFR (CKD-EPI)NonAf 46 (>60 ml/min/1.73 sqM) 09/26/19 17:45 Glucose 146 mg/dL (74-99) H 09/26/19 17:45 POC Glucose (mg/dL) 130 mg/dL (75-99) H 09/27/19 07:07 POC Glu Dice Person ID Jenny Trujillo 09/27/19 07:07 Plasma Lactic Acid Claus 2.0 mmol/L (0.7-2.0) 09/26/19 17:45 Calcium 9.1 mg/dL (8.4-10.2) 09/26/19 17:45 Magnesium 1.6 mg/dL (1.6-2.3) 09/26/19 17:45 Total Bilirubin 0.8 mg/dL (0.2-1.3) 09/26/19 17:45 AST 32 U/L (17-59) 09/26/19 17:45 ALT 11 U/L (4-49) 09/26/19 17:45 Alkaline Phosphatase 107 U/L (38-126) 09/26/19 17:45 Troponin I <0.012 ng/mL (0.000-0.034) 09/26/19 17:45 NT-Pro-B Natriuret Pep 5760 pg/mL 09/26/19 17:45 Total Protein 7.1 g/dL (6.3-8.2) 09/26/19 17:45 Albumin 4.1 g/dL (3.5-5.0) 09/26/19 17:45 Urine Color Yellow 09/27/19 06:20 Urine Appearance Cloudy (Clear) 09/27/19 06:20 Urine pH 5.5 (5.0-8.0) 09/27/19 06:20 Ur Specific [place] 1.014 (1.001-1.035) 09/27/19 06:20 Urine Protein Trace (Negative) H 09/27/19 06:20 Urine Glucose (UA) Negative (Negative) 09/27/19 06:20 Urine Ketones Negative (Negative) 09/27/19 06:20 Urine Blood Negative (Negative) 09/27/19 06:20 Urine Nitrite Negative (Negative) 09/27/19 06:20 Urine Bilirubin Negative (Negative) 09/27/19 06:20 Urine Urobilinogen <2.0 mg/dL (<2.0) 09/27/19 06:20 Ur Leukocyte Esterase Large (Negative) H 09/27/19 06:20 Urine RBC 3 /hpf (0-5) 09/27/19 06:20 Urine WBC 95 /hpf (0-5) H 09/27/19 06:20 Ur Squamous Epith Cells 1 /hpf (0-4) 09/27/19 06:20 Urine Bacteria Rare /hpf (None) H 09/27/19 06:20 Hyaline Casts 10 /lpf (0-2) H 09/27/19 06:20 Urine Mucus Rare /hpf (None) H 09/27/19 06:20 Urine Yeast (Budding) Rare /hpf (None) H 09/27/19 06:20 PT/INR, D-dimer PT 9.9 sec (9.0-12.0) 09/26/19 17:45 INR 1.0 (<1.2) 09/26/19 17:45 Abnormal lab findings: Abnormal Labs 09/26/19 09/26/19 09/27/19 17:45 17:45 06:20 RBC 3.10 L Hgb 11.5 L Hct 34.1 L MCV 110.1 H MCH 37.2 H Lymphocytes # 0.4 L Macrocytosis Marked A Sodium 135 L Chloride 96 L BUN 31 H Creatinine 1.42 H Glucose 146 H POC Glucose (mg/dL) Urine Protein Trace H Ur Leukocyte Esterase Large H Urine WBC 95 H Urine Bacteria Rare H Hyaline Casts 10 H Urine Mucus Rare H Urine Yeast (Budding) Rare H 09/27/19 07:07 RBC Hgb Hct MCV MCH Lymphocytes # Macrocytosis Sodium Chloride BUN Creatinine Glucose POC Glucose (mg/dL) 130 H Urine Protein Ur Leukocyte Esterase Urine WBC Urine Bacteria Hyaline Casts Urine Mucus Urine Yeast (Budding) Assessment and Plan Plan: #1. Recurrent right-sided pleural effusion along with volume loss and previous thoracentesis is indicated a transudative pleural effusion with low LDH and protein. Previous CAT scan of the chest shows old granulomatous changes with calcifications in the lung, mediastinum and the spleen. Note that the patient has history of latent TB. He had a possibility skin tested age of 12. He is not sure if he hasn't received any prophylaxis with anti-TB antibiotics back then. In any rate, the previous pleural fluid was not checked for AFB or tuberculosis cultures. My overall suspicion for tuberculosis pleural effusion is low knowing that the fluid itself is a transudate. I'm going to reevaluate the pleural fluid again with another thoracentesis and check for AFB and tuberculosis culture with understanding that this is of a low yield. I think it's reasonable also to check ADA level. I believe that the pleural fluid is most likely consistent with CHF due to a transudative nature. #2. Dyspnea secondary to above #3. Chronic A. fib #4. Chronic obstructive pulmonary disease #5. History of thyroid cancer with thyroidectomy #6. Hypothyroidism #7. History of lower GI bleed secondary to radiation proctitis #8. Chronic anemia #9. Daily EtOH #10. Diabetes mellitus type 2 #11. Chronic nicotine dependence #12 latent TB at the age of 12 not sure if he has received any INH chemop rophylaxis #13 mediastinal calcification and splenic calcification indicated of an old granulomatous infection #14 moderate aortic stenosis and mitral regurgitation with secondary pulmonary hypertension. plan Repeat the pleural fluid evaluation with another thoracentesis Check pleural fluid AFB and cultures for TB and send pleural fluid ADA level Repeat echocardiogram my overall suspicion for a tuberculous effusion is low on this patient based on the above-mentioned information We'll continue to follow
--- NOTE | 2019-09-27 12:18 | P.HPIM ---
History of Present Illness H&P Date: 09/27/19 Chief Complaint: Short of breath History of presenting complaint: This is a very pleasant 84-year-old patient of Dr. Gee. Chronic stable medical conditions include diabetes, GERD, hypertension, hypothyroid, diverticulosis, osteoarthritis, atrial fibrillation, chronic right-sided pleural effusion has had thoracentesis 2. Has some chronic loculation. Not a Candidate for anticoagulation because of lower GI bleeding. Also's had recurrent rectal bleeding because of radiation proctitis and anticoagulation. Has known radiation cystitis and does follow with Dr. Guzman. Does use a scooter at baseline. Lives at [facility]. Has continued to smoke cigarettes and drinks 2 shots a day. Patient now presents with worsening shortness of breath some wheezing cough and Cordis large amount of phlegm or difficulties. Denies any fever and chills. Appetite is gone down. Feels weak tired rundown. Admitted for the same Review of systems: GEN.: Weak tired rundown EYES: None HEENT: Decreased hearing NECK: None RESPIRATORY: As above CARDIOVASCULAR: None GASTROINTESTINAL: None GENITOURINARY: None MUSCULOSKELETAL: Pain in the joints LYMPHATICS: None HEMATOLOGICAL: None PSYCHIATRY: Forgetful NEUROLOGICAL: Is uses a scooter Past medical history to include: Diabetes, GERD, hypertension, hypothyroid, diverticulosis, osteoarthritis, atrial fibrillation not a candidate for anticoagulation, radiation proctitis with recurrent rectal bleeding from argan plasma coagulation, radiation cystitis, chronic right pleural effusion with thoracentesis 2 and loculated effusions Social history: Has been smoking for many years. Lives at [facility]. Drinks 2 short of whiskey a day.. Has home health. Does use a scooter or wheelchair. Physical examination: VITAL SIGNS: 100.2, 110, 18, 118/62, 95% on 2 L upon presentation GENERAL: BMI 21.3, laying in bed tired EYES: Pupils equal. Conjunctiva pale HEENT: External appearance of nose and ears normal, oral cavity grossly normal. NECK: JVD not raised; masses not palpable. HEART: First and second heart sounds are normal; no edema. LUNGS: Respiratory rate increased, decreased breath sounds some wheezing. Some crackles ABDOMEN: Soft, nontender, liver spleen not palpable, no masses palpable. PSYCH: Awake able to answer simple questions. NEUROLOGICAL: Cranial nerves grossly intact; no facial asymmetry, power and sensation grossly intact. LYMPHATICS: No lymph nodes palpable in the axilla and neck INVESTIGATIONS, reviewed in the clinical context: White count 7.5 hemoglobin 11.5 potassium 4.8 bun 31 creatinine 1.42 EKG tracing personally reviewed by me-possible junctional rhythm Chest x-ray film personally reviewed by me-significant right-sided pleural effusion with possible infiltrate Previous testing Patient's labs from May 2019 showed a bundle 32 creatinine 1.12 Assessment: -Right-sided pneumonia suspect gram-negative organism, POA, POA -Acute on chronic right-sided pleural effusion with thoracentesis 2 in the past likely transudate with some loculated pleural effusion -Acute COPD exacerbation in a current smoker, POA -Chronic nicotine dependence patient cigarette smoker -Essential hypertension -Diabetes mellitus type 2 on oral hypoglycemic -Chronic gait dysfunction uses a wheelchair -Persistent atrial fibrillation not a candidate for any anticoagulation -Chronic thoracic spine osteoarthritis -Hypothyroidism -GERD -Moderate to severe mitral regurgitation nonrheumatic -Severe tricuspid regurgitation nonrheumatic -Severe secondary pulmonary hypertension secondary to COPD Plan: Discussed and Dr. Ortega from pulmonary. Patient should get some relief from thoracentesis on the right side. Patient is on IV ceftriaxone.. Will need at least 2 nights stay in the hospital. The patient rather upset about being in the hospital. Does not like being here. We will given a nicotine patch. Past Medical History Past Medical History: Atrial Fibrillation, Cancer, COPD, Diabetes Mellitus, GERD/Reflux, Hypertension, Liver Disease, Neurologic Disorder, Osteoarthritis (OA), Pneumonia, Prostate Disorder, Thyroid Disorder Additional Past Medical History / Comment(s): latent TB, diabetic neuropathy, COPD, chronic atrial fibrillation, thyroid cancer with a previous thyroidectomy, hypothyroidism, skin cancers with removals, prostate cancer with radiation, lower GI bleed thought secondary to radiation proctitis, diverticular disease, chronic anemia, duodenal ulcer, ETOH, history of ETOH withdrawal/delirium tremors, R leg weakness, history of falls, chronic lower extremity edema, arthritis thoracic spine. History of Any Multi-Drug Resistant Organisms: None Reported Past Surgical History: Bowel Resection Additional Past Surgical History / Comment(s): thyroidectomy, colonoscopy/polypectomy, skin cancer removed, bilateral cataracts, bowel resection-d/t diverticulits, sigmoidoscopy Past Anesthesia/Blood Transfusion Reactions: No Reported Reaction Additional Past Anesthesia/Blood Transfusion Reaction / Comment(s): has had blood transfusions-no reaction Past Psychological History: Anxiety, Depression Additional Psychological History / Comment(s): pt stated [facility],has motorized w/c and 2 -4 wheeled walkers. has home care but can't remember name of company.. 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 Smoking Status: Current every day smoker Past Alcohol Use History: Abuse, Daily Additional Past Alcohol Use History / Comment(s): started smoking in his mid 40's, 1ppd, pt stated he drinks 3 drinks per day Past Drug Use History: None Reported - Past Family History Father Family Medical History: Asthma, CVA/TIA Additional Family Medical History / Comment(s): pacemaker, smoker Mother Family Medical History: Chest Pain / Angina Additional Family Medical History / Comment(s): smoker Medications and Allergies Home Medications Medication Instructions Recorded Confirmed Type Ipratropium [place] [Atrovent Hfa] 2 puff INHALATION RT-QID 09/16/17 09/26/19 History Umeclidinium [place] [Incruse 1 puff INHALATION RT-DAILY@0709/16/17 09/26/19 History Ellipta] metFORMIN HCL [Glucophage] 500 mg PO BID@07,199909/16/17 09/26/19 History Ferrous Gluconate 324 mg PO DAILY@1200 12/08/18 09/26/19 History Metoprolol Succinate [Toprol XL] 75 mg PO DAILY@0700 12/08/18 09/26/19 History Spironolactone 12.5 mg PO DAILY@0712/08/18 09/26/19 History Albuterol Inhaler [Ventolin Hfa 2 puff INHALATION RT-Q4H PRN 06/15/19 09/26/19 History Inhaler] Dulaglutide [Trulicity] 1.5 mg SQ SA@79906/15/19 09/26/19 History Furosemide [Lasix] 40 mg PO DAILY@69906/15/19 09/26/19 History Levothyroxine Sodium [Synthroid] 112 mcg PO DAILY@0700 06/15/19 09/26/19 History Budesonide-Formot 160-4.5 Mcg 2 puff INHALATION RT-BID@699,199909/26/19 09/26/19 History [Symbicort 160-4.5 Mcg Inhaler] Cetirizine HCl 10 mg PO DAILY@0700 09/26/19 09/26/19 History Polyethylene Glycol 3350 [Miralax] 17 gm PO DAILY PRN 09/26/19 09/26/19 History Allergies Allergy/AdvReac Type Severity Reaction Status Date / Time aspirin Allergy Rash/Hives Verified 09/26/19 21:26 Physical Exam Vitals: Vital Signs Temp Pulse Pulse Resp BP BP Pulse Ox 09/27/19 07:00 98.0 F 105 H 16 98/66 100 09/27/19 04:00 18 09/27/19 02:50 98.3 F 105 H 18 91/63 99 09/27/19 00:00 18 09/26/19 22:21 20 09/26/19 22:15 98.2 F 104 H 19 95/58 100 09/26/19 20:42 106 H 20 100/59 09/26/19 19:59 99.4 F 106 H 20 84/54 97 09/26/19 19:14 96 20 102/58 95 09/26/19 18:06 108 H 09/26/19 17:47 109 H 09/26/19 17:40 20 09/26/19 17:35 100.2 F H 110 H 18 118/62 95 Intake and Output 09/26/19 09/27/19 09/27/19 22:59 06:59 14:59 Intake Total 296 Balance 296 Intake: Oral 296 Other: Voiding Method Urinal Urinal Urinal Diaper Diaper Diaper Incontinent Incontinent Incontinent # Voids 1 # Bowel Movements 1 Weight 63.503 kg Results CBC & Chem 7: 09/26/19 17:45 09/26/19 17:45 Labs: Abnormal Lab Results - Last 24 Hours (Table) 09/26/19 09/26/19 09/27/19 Range/Units 17:45 17:45 06: RBC 3.10 L (4.30-5.90) m/uL Hgb 11.5 L (13.0-17.5) gm/dL Hct 34.1 L (39.0-53.0) % MCV 110.1 H (80.0-100.0) fL MCH 37.2 H (25.0-35.0) pg Lymphocytes # 0.4 L (1.0-4.8) k/uL Macrocytosis Marked A Sodium 135 L (137-145) mmol/L Chloride 96 L (98-107) mmol/L BUN 31 H (9-20) mg/dL Creatinine 1.42 H (0.66-1.25) mg/dL Glucose 146 H (74-99) mg/dL POC Glucose (mg/dL) (75-99) mg/dL Urine Protein Trace H (Negative) Ur Leukocyte Esterase Large H (Negative) Urine WBC 95 H (0-5) /hpf Urine Bacteria Rare H (None) /hpf Hyaline Casts 10 H (0-2) /lpf Urine Mucus Rare H (None) /hpf Urine Yeast (Budding) Rare H (None) /hpf 09/27/19 Range/Units 07:07 RBC (4.30-5.90) m/uL Hgb (13.0-17.5) gm/dL Hct (39.0-53.0) % MCV (80.0-100.0) fL MCH (25.0-35.0) pg Lymphocytes # (1.0-4.8) k/uL Macrocytosis Sodium (137-145) mmol/L Chloride (98-107) mmol/L BUN (9-20) mg/dL Creatinine (0.66-1.25) mg/dL Glucose (74-99) mg/dL POC Glucose (mg/dL) 130 H (75-99) mg/dL Urine Protein (Negative) Ur Leukocyte Esterase (Negative) Urine WBC (0-5) /hpf Urine Bacteria (None) /hpf Hyaline Casts (0-2) /lpf Urine Mucus (None) /hpf Urine Yeast (Budding) (None) /hpf Thrombosis Risk Factor Assmnt - Choose All That Apply Each Factor Represents 1 point: Abnormal pulmonary function (COPD) Each Risk Factor Represents 2 Points: Patient confined to bed Each Risk Factor Represents 3 Points: Age 75 years or older Thrombosis Risk Factor Assessment Total Risk Factor Score: 6 Thrombosis Risk Factor Assessment Level: High Risk
[2019-09-27 12:21] LABS: Glucose,Whole Blood 139 mg/dL (75-99)
[2019-09-27] MEDS: FERROUS SULFATE 325 MG TAB PO SCH ×2 (12:30→12:32)
[2019-09-27] MEDS: LACTATED RINGERS 1,000 ML IV SCH (12:31)
--- NOTE | 2019-09-27 12:59 | XR ---
EXAMINATION TYPE: XR chest 2V DATE OF EXAM: 09/27/2019 COMPARISON: 09/26/2019 HISTORY: History of pneumonia. TECHNIQUE: Frontal and lateral views of the chest are obtained. FINDINGS: There is an improving small right pleural effusion with associated right basilar multifoca l airspace disease. Cardia mediastinal silhouette is enlarged. Left lung remains well aerated. Diffus e osseous demineralization is seen. IMPRESSION: Improving small right pleural effusion and right-sided airspace disease.
--- NOTE | 2019-09-27 13:27 | CT ---
EXAMINATION TYPE: CT chest wo con DATE OF EXAM: 09/27/2019 COMPARISON: 06/15/2019 HISTORY: right thoracentesis, recurrent pleural effusion CT DLP: 337.5 mGycm. Automated Exposure Control for Dose Reduction was Utilized. TECHNIQUE: CT scan of the thorax is performed without IV contrast. FINDINGS: LUNGS: There is interval marked reduction in amount pleural fluid on the right with a small right-letha ed pleural effusion noted. However, there is a persistent subsegmental areas of consolidation. No pne umothorax underlying emphysematous changes are noted. There is a small area of consolidation the left lower lobe with tiny pleural effusion. Consolidation likely related to compressive atelectasis. Susp ect a right lower lobe granuloma.. MEDIASTINUM: Lack of IV contrast is noted to limit evaluation for mediastinal and especially hilar ad enopathy. The heart demonstrates global cardiomegaly and dense three-vessel coronary artery disease. Calcification in the aortic valve noted. Atherosclerotic changes aorta but no evidence of aneurysm. N o sizable pleural effusions. Calcified mediastinal and hilar lymph nodes are seen. Assessment for melissa nopathy limited by lack of contrast. Numerous shotty lymph nodes are seen in the mediastinum with no lymph nodes measuring short axis greater than 1 cm OTHER: Hypertrophic and degenerative changes spine is noted. There is a trace amount of ascites. Nume deena splenic granuloma are seen and there is dense atherosclerotic change of the vasculature. Degener ative change of the spine. Nonspecific perinephric edema. There may be mild wall thickening and peric holecystic fluid correlate with ultrasound. There are bilateral previous rib fractures.. IMPRESSION: 1. Interval noticeable improvement in the amount of pleural fluid with a small persistent right-sided effusion and areas of consolidation which could represent compressive atelectasis. Correlate clinica lly to exclude pneumonia. 2. Tiny left effusion with suspected compressive atelectasis. 3. Nonspecific perinephric edema correlate with urinalysis for infection. 4. gallbladder wall slightly thickened and there is a suggestion of pericholecystic fluid correlate w ith ultrasound to assess for cholecystitis. 5. A tiny amount of ascites 6. Chronic granulomatous disease.
[2019-09-27] MEDS: FORMOTEROL FUMARATE 20 MCG/2 ML NEBU INHALATION SCH ×2 (14:20→21:33)
[2019-09-27 14:35] LABS: Appearance,BF Hazy; Color,BF Yellow; Nucleated Cells, Body Fluid 58 /uL; RBC, Body Fluid 36 /uL
[2019-09-27 14:39] LABS: Mononuclear WBC,Body Fluid 96 %; Polynuclear WBC,Body Fluid 4 %; Total Cells Counted,Body Fluid 100
[2019-09-27 16:44] LABS: Glucose,Whole Blood 215 mg/dL (75-99)
[2019-09-27] MEDS: AZITHROMYCIN 500 MG in SODIUM CHLORIDE 0.9% 250 ML IVPB SCH (17:13)
--- NOTE | 2019-09-27 18:01 | ECHOF ---
Referral Reason:shortness of breath MEASUREMENTS -------- HEIGHT: 172.7 cm WEIGHT: 63.5 kg BP: 98/66 RVIDd: 3.6 cm (< 3.3) IVSd: 1.2 cm (0.6 - 1.1) LVIDd: 4.5 cm (3.9 - 5.3) LVPWd: 1.7 cm (0.6 - 1.1) IVSs: 1.6 cm LVIDs: 3.4 cm LVPWs: 2.1 cm LAESV Index (A-L): 72.04 ml/m Ao Diam: 2.3 cm (2.0 - 3.7) AV Cusp: 0.8 cm (1.5 - 2.6) MV EXCURSION: 21.730 mm (> 18.000) MV EF SLOPE: 241 mm/s (70 - 150) EPSS: 0.8 cm AV maxP.46 mmHg AV meanP.44 mmHg RAP: 20.00 mmHg RVSP: 90.93 mmHg FINDINGS -------- Undetermined rhythm. This was a technically adequate study. The left ventricular size is normal. There is moderate concentric left ventricular hypertrophy. O verall left ventricular systolic function is mildly impaired with, an EF between 45 - 50 %. Increas ed Lap Grade II Diastolic Dysfunction. The right ventricle is mildly enlarged. LA is severely dilated >40 ml/m2 The right atrium is mildly enlarged. Interatrial and interventricular septum intact. There is no evidence of aortic regurgitation. There is moderate aortic stenosis present. Peak/brandon n gradient across the Aortic Valve is 40.46mmHg / 21.44mmHg. Severe mitral annular calcification present. Hxoflxhn-zl-dukqtd mitral regurgitation is present. Moderate to severe tricuspid regurgitation present. There is severe pulmonary hypertension. The r ight ventricular systolic pressure, as measured by Doppler, is 90.93mmHg. There is no pulmonic regurgitation present. The aortic root size is normal. The inferior vena cava is dilated with no significant inspiratory collapse which is consistent estima nicole right atrial pressure of >20 mmHg. There is no pericardial effusion. CONCLUSIONS -------- 1. Undetermined rhythm. 2. This was a technically adequate study. 3. The left ventricular size is normal. 4. There is moderate concentric left ventricular hypertrophy. 5. Overall left ventricular systolic function is mildly impaired with, an EF between 45 - 50 %. 6. Increased Lap Grade II Diastolic Dysfunction. 7. The right ventricle is mildly enlarged. 8. LA is severely dilated >40 ml/m2 9. The right atrium is mildly enlarged. 10. Interatrial and interventricular septum intact. 11. There is no evidence of aortic regurgitation. 12. There is moderate aortic stenosis present. 13. Peak/mean gradient across the Aortic Valve is 40.46mmHg / 21.44mmHg. 14. Severe mitral annular calcification present. 15. Vmxvqdhb-rx-cmevkw mitral regurgitation is present. 16. Moderate to severe tricuspid regurgitation present. 17. There is severe pulmonary hypertension. 18. The right ventricular systolic pressure, as measured by Doppler, is 90.93mmHg. 19. There is no pulmonic regurgitation present. 20. The aortic root size is normal. 21. The inferior vena cava is dilated with no significant inspiratory collapse which is consistent es timated right atrial pressure of >20 mmHg. 22. There is no pericardial effusion. EDGERMAN: Ann-Marie Patel RDCS
[2019-09-27] MEDS: metFORMIN 500 MG TAB PO SCH (19:56)
[2019-09-27 20:41] LABS: Glucose, BF Source Pleural Fluid; Glucose, Body Fluid 147 mg/dL; LDH, Body Fluid Source Pleural Fluid; Total Protein, Body Fluid 2600 mg/dL
--- NOTE | 2019-09-27 20:56 | PCN ---
PROCEDURE NOTE PREOPERATIVE DIAGNOSIS: Right pleural effusion. POSTOP DIAGNOSIS: Right sided pleural effusion. Indication Pleural effusion. A time-out was completed verifying correct patient, procedure, site, positioning , and implant (s) or special equipment if applicable. Ultrasound guidance was not used and appropriate fluid pocket was identified and marked. Patient was positioned, prepped and draped in usual sterile fashion. Lidocaine was used to anesthetize the area. A Thoracentesis catheter was introduced into the pleural space and fluid was removed. Blood loss was none. A chest x-ray was ordered to evaluate for pneumothorax. Total Fluid Removed: 1.3 L Color of Fluid: Dark yellowish pleural effusion. Fluid was sent for appropriate laboratory tests. Patient tolerated the procedure well and there were no complications. This procedure was done without ultrasound marking. Total amount of fluid removed was 1.3 L dark turbid yellowish pleural effusion. No bedside complications. No bleeding. No pneumothorax. The pleural fluid was sent for analysis. MMODL / IJN: [id number] /
[2019-09-27] MEDS: BUDESONIDE 1 MG/2 ML NEBU INHALATION SCH (21:33)
[2019-09-28] MEDS: IPRATROPIUM-ALBUTEROL 3 ML NEB INHALATION SCH ×6 (00:52→21:48)
[2019-09-28 07:02] LABS: Glucose,Whole Blood 207 mg/dL (75-99)
[2019-09-28 08:13] LABS: Calcium 8.2 mg/dL (8.4-10.2); Potassium 4.1 mmol/L (3.5-5.1)
[2019-09-28] MEDS: SPIRONOLACTONE 25 MG TAB PO SCH (08:30)
[2019-09-28] MEDS: THIAMINE 100 MG TAB PO SCH ×2 (08:30→16:52)
[2019-09-28] MEDS: LEVOTHYROXINE 112 MCG TAB PO SCH (08:30)
[2019-09-28] MEDS: metFORMIN 500 MG TAB PO SCH ×2 (08:31→21:26)
[2019-09-28] MEDS: ENOXAPARIN 40 MG/0.4 ML SYRINGE SQ SCH (08:31)
[2019-09-28] MEDS: LACTATED RINGERS 1,000 ML IV SCH (08:31)
[2019-09-28] MEDS: BUDESONIDE 1 MG/2 ML NEBU INHALATION SCH ×2 (08:50→21:48)
[2019-09-28] MEDS: FORMOTEROL FUMARATE 20 MCG/2 ML NEBU INHALATION SCH ×2 (08:50→21:48)
[2019-09-28] MEDS ORDERED: METOPROLOL TARTRATE 25 MG TAB PO STA (10:44)
[2019-09-28] MEDS: FERROUS SULFATE 325 MG TAB PO SCH (11:16)
[2019-09-28 12:10] LABS: Glucose,Whole Blood 167 mg/dL (75-99)
--- NOTE | 2019-09-28 12:22 | CDI ---
Documentation Clarification Form Date: 09/28/2019 12:06:33 PM From: Susan Petit CCS, CCDS Admit Date: 09/26/2019 08:52:00 PM Patient Name: Jose Chakraborty Visit Number: [id number] Discharge Date: ATTENTION: The Clinical Documentation Specialists (CDI) and [facility] Coding Staff appreciate your assistance in clarifying documentation. Please respond to the clarification below the line at the bottom and electronically sign. The CDI & [facility] Coding staff will review the response and follow-up if needed. Please note: Queries are made part of the Legal Health Record. If you have any questions, please contact the author of this message via ITS. Dr. Ramez Redman: A diagnosis of anemia lacks specificity to accurately reflect your patients severity of condition and clarification is needed. Per the 09/25 ED note: "Chronic anemia" is documented. Per the 09/26 History & Physical and the 09/26 Pulmonary Consult: "Chronic anemia" is also documented without further specificity. History/Risk Factors: DM II, GERD, Hypertension, Hypothyroid, Diverticulosis, Primary thoracic osteoarthritis, Persistent atrial fibrillation (not on anticoagulation due to previous GI bleed), Chronic right sided pleural effusion status post previous thoracentesis, Radiation proctitis & radiation cystitis, Smoker. Clinical indicators: Presented to the ED on 09/25 with SOB, decreased breath sounds & wheezing. Diagnosed with right sided pneumonia suspect gram-negative organism & acute COPD exacerbation. Hemoglobin 09/25: 11.4* Hematocrit 09/25: 34.1* Treatment: Blood & sputum cultures, Telemetry, oral nutrition supplement, IV fluid 1000 mls @ 100 mls/hr x2, IV fluid bolus 1,000 mls @ 999 mls/hr x2, IV Azithromycin, INH Albuterol, IV Rocephin, IM Vit B1. PO Feosol on 09/26 325 mg (daily). Home dose Ferrous Gluconate 324 mg po daily. In order to capture the severity of condition, please clarify the type of anemia and etiology if known: Chronic blood loss anemia, please specify cause if known: Iron deficiency anemia Anemia due to malignancy Nutritional anemia Anemia of chronic disease, please specify if known: Unable to determine Other, please specify (Last Revision: April 2017) Possibly anemia of chronic disease, exact cause unknown MTDD
--- NOTE | 2019-09-28 14:50 | P.PN ---
Subjective Progress Note Date: 09/28/19 This is a pleasant 84-year-old male patient who came into the hospital because of worsening shortness of breath and cough. He also had some increased chest congestion and he felt that he was feverish. There was no documented temperature than 100.2 at a time of admission. His chest x-ray from today showi ng a volume loss in addition to a large right-sided pleural effusion. On examination is marked diminished breath sounds on the right. There is an old chronic problem. I have drained this patient in the past back in 2018 on 2 separate occasions and the fluid was essentially change. The last CAT scan of the chest that was done on this patient on 06/15/2019, showed old healed fracture deformity in the posterior aspect of the seventh through ninth rib in addition to moderate-sized right-sided pleural effusion, mediastinal calcification, coronary calcification, and there was evidence of any also granulomatous disease. There was also granulomatous changes involving the spleen and the right lower lobe all indicating a previous granulomatous infection either an old histoplasma or old sarcoidosis versus latent TB. In any rate, the patient also multiple comorbidities. He has COPD, diabetes mellitus type 2 on diabetic neuropathy, hypertension, osteoarthritis, history of thyroid cancer post-thyroidectomy and he is hypothyroidism for now, history of prostate cancer treated with radiation therapy, chronic anemia, duodenal ulcer, history of alcoholism and history of previous GI bleeding. His influenza screen for now is negative. And the white count is normal. The last echocardiogram from 2017 showed an ejection fraction of 5055% and the patient had moderate aortic stenosis and severe mitral regurgitation. Right-sided pressures were 53 mmHg. On 09/28/2019 patient seen in follow-up on the general medical floor. Doing well, denies any shortness of breath, he is on 1-2 L of oxygen, his pulse ox is 99%, afebrile, hemodynamically stable. He is on a combination of empiric antibiotics , and a of Zithromax and Rocephin yesterday he underwent right-sided thoracentesis would removal of 1.3 L of pleural fluid which was sent for analysis that shows transudate of fluid. Pleural fluid cultures are still pending, preliminary Gram stain showed no organisms, cytology is pending, viral cultures are pending, pleural fluid ADA and AFB are pending. Clinically patient is comfortable, denies any complaints, no acute issues overnight, no hemoptysis, no shortness of breath, increase activity as tolerated, he is hoping to be able to go home tomorrow Objective - Vital Signs Vital signs: Vital Signs Temp 97.8 F 09/28/19 07:00 Pulse 102 H 09/28/19 09:12 Resp 18 09/28/19 07:00 BP 106/70 09/28/19 07:00 Pulse Ox 99 09/28/19 07:00 Intake & Output 09/27/19 09/28/19 09/28/19 18:59 06:59 18:59 Intake Total 532 500 Output Total 50 Balance 482 500 Weight 63.503 kg Intake: Intake, IV Titration 500 Amount Lactated Ringers 1,000 ml 450 @ 50 mls/hr IV .Q20H [facility] Rx#:[id number] cefTRIAXone 1 gm In 50 Sodium Chloride 0.9% 50 ml @ 100 mls/hr IVPB HS [facility] Rx#:[id number] Oral 532 Output: Urine 50 Other: Voiding Method Urinal Urinal Urinal Diaper Diaper Diaper Incontinent Incontinent Incontinent # Voids 2 1 - Exam GENERAL EXAM: Alert, fairly cooperative, 84-year-old white male, on 1-2 L of oxygen comfortable in no apparent distress. Skin is pale, patient is cachectic and debilitated HEAD: Normocephalic/atraumatic. EYES: Normal reaction of pupils, equal size. Conjunctiva pink, sclera white. NOSE: Clear with pink turbinates. THROAT: No erythema or exudates. NECK: No masses, no JVD, no thyroid enlargement, no adenopathy. CHEST: No chest wall deformity. Symmetrical expansion. LUNGS: Equal air entry with no crackles, wheeze, rhonchi or dullness. CVS: Regular rate and rhythm, normal S1 and S2, no gallops, no murmurs, no rubs ABDOMEN: Soft, nontender. No hepatosplenomegaly, normal bowel sounds, no guarding or rigidity. EXTREMITIES: No clubbing, no edema, no cyanosis, 2+ pulses and upper and lower extremities. MUSCULOSKELETAL: Muscle strength and tone normal. SPINE: No scoliosis or deformity SKIN: No rashes CENTRAL NERVOUS SYSTEM: Alert and oriented -3. No focal deficits, tone is normal in all 4 extremities. PSYCHIATRIC: Alert and oriented -3. Appropriate affect. Intact judgment and insight. - Labs CBC & Chem 7: 09/26/19 17:45 09/28/19 07:09 Labs: Abnormal Lab Results - Last 24 Hours (Table) 09/27/19 09/28/19 09/28/19 Range/Units 16:43 07:01 07:09 Chloride 109 H (98-107) mmol/L Carbon Dioxide 21 L (22-30) mmol/L BUN 26 H (9-20) mg/dL Glucose 148 H (74-99) mg/dL POC Glucose (mg/dL) 215 H 207 H (75-99) mg/dL Calcium 8.2 L (8.4-10.2) mg/dL 09/28/19 Range/Units 12:08 Chloride (98-107) mmol/L Carbon Dioxide (22-30) mmol/L BUN (9-20) mg/dL Glucose (74-99) mg/dL POC Glucose (mg/dL) 167 H (75-99) mg/dL Calcium (8.4-10.2) mg/dL Microbiology - Last 24 Hours (Table) 09/27/19 12:00 Gram Stain - Preliminary Pleural Fluid Body Fluid Culture - Preliminary 09/27/19 13:20 Gram Stain - Preliminary Sputum 09/27/19 12:00 Acid Fast Bacilli Smear - Final Pleural Fluid Acid Fast Bacilli Culture - Preliminary 09/26/19 17:45 Blood Culture - Preliminary Blood No Growth after 24 hours 09/27/19 12:00 Fungal Culture - Preliminary Pleural Fluid Assessment and Plan Plan: Assessment: #1. Recurrent right-sided pleural effusion along with volume loss and previous thoracentesis is indicated a transudative pleural effusion with low LDH and protein. Previous CAT scan of the chest shows old granulomatous changes with calcifications in the lung, mediastinum and the spleen. Note that the patient has history of latent TB. He had a possibility skin tested age of 12. He is not sure if he hasn't received any prophylaxis with anti-TB antibiotics back then. In any rate, the previous pleural fluid was not checked for AFB or tuberculosis cultures. My overall suspicion for tuberculosis pleural effusion is low knowing that the fluid itself is a transudate. I'm going to reevaluate the pleural fluid again with another thoracentesis and check for AFB and tuberc ulosis culture with understanding that this is of a low yield. I think it's reasonable also to check ADA level. The pleural fluid is transudate of in nature and consistent with CHF due to a transudative nature. #2. Dyspnea secondary to above #3. Chronic A. fib #4. Chronic obstructive pulmonary disease #5. History of thyroid cancer with thyroidectomy #6. Hypothyroidism #7. History of lower GI bleed secondary to radiation proctitis #8. Chronic anemia #9. Daily EtOH #10. Diabetes mellitus type 2 #11. 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 Plan: Pleural fluid analysis reveals transudate of fluid consistent with congestive heart failure, patient is awake and alert, he is in no acute distress, no complaints of shortness of breath or chest pain, no no rhonchi, no wheezing noted, he is calm and comfortable, without specific complaints, pleural fluid cultures reveal no growth so far, final cultures are pending, pleural fluid ADA and AFB, viral cultures are all pending for now. Clinically stable, no fever or chills. Anticipate discharge home in the next 24 hours, we'll need follow-up with Dr. Allen in the office in one to 2 weeks. Patient states. Has appointment with Dr. Allen on 10/16/2019 I performed a history & physical examination of the patient and discussed their management with my nurse practitioner, Sujatha Barron. I reviewed the nurse practitioner's note and agree with the documented findings and plan of care. Lung sounds are positive for diminished breath sounds at the bases The findings and the impression was discussed with the patient. I attest to the documen tation by the nurse practitioner. Time with Patient: Less than 30
[2019-09-28] MEDS: AZITHROMYCIN 500 MG in SODIUM CHLORIDE 0.9% 250 ML IVPB SCH (16:52)
[2019-09-28] MEDS: METOPROLOL TARTRATE 12.5 MG TAB PO SCH ×2 (16:52→21:27)
[2019-09-28 16:58] LABS: Glucose,Whole Blood 154 mg/dL (75-99)
--- NOTE | 2019-09-28 20:22 | P.PN ---
Progress Note - Text Progress Note Date: 09/28/19 Chief Complaint: Short of breath History of presenting complaint: This is a very pleasant 84-year-old patient of Dr. Gee. Chronic stable medical conditions include diabetes, GERD, hypertension, hypothyroid, diverticulosis, osteoarthritis, atrial fibrillation, chronic right-sided pleural effusion has had thoracentesis 2. Has some chronic loculation. Not a Candidate for anticoagulation because of lower GI bleeding. Also's had recurrent rectal bleeding because of radiation proctitis and anticoagulation. Has known radiation cystitis and does follow with Dr. Guzman. Does use a scooter at baseline. Lives at [facility]. Has continued to smoke cigarettes and drinks 2 shots a day. Patient now presents with worsening shortness of breath some wheezing cough and large amount of phlegm or difficulties. Denies any fever and chills. Appetite is gone down. Feels weak tired rundown. Admitted for the same. Admitted with a diagnosis of breath and pneumonia, acute on chronic right-sided pleural effusion, acute COPD exacerbation. 1.2 L of fluid was removed from the right side catherine colored, transudate Today-breathing much improved. Less cough. Appetite improving. Feels more peppy. Review of systems: Was done for constitutional, cardiovascular, GI, pulmonary. relevant finding as above Active Medications Albuterol/Ipratropium (Duoneb 0.5 Mg-3 Mg/3 Ml Soln) 3 ml INHALATION RT-Q4H [facility] Last Admin: 09/28/19 18:01 Dose: 3 ml Documented by: Budesonide (Pulmicort) 1 mg INHALATION RT-BID [facility] Last Admin: 09/28/19 08:50 Dose: 1 mg Documented by: Enoxaparin Sodium (Lovenox) 40 mg SQ DAILY [facility] Last Admin: 09/28/19 08:31 Dose: 40 mg Documented by: Ferrous Sulfate (Feosol) 325 mg PO DAILY@1200 [facility] Last Admin: 09/28/19 11:16 Dose: 325 mg Documented by: Formoterol Fumarate (Perforomist) 20 mcg INHALATION RT-BID [facility] Last Admin: 09/28/19 08:50 Dose: 20 mcg Documented by: Ceftriaxone Sodium 1 gm/ (Sodium Chloride) 50 mls @ 100 mls/hr IVPB [facility] Stop: 09/30/19 21:01 Last Admin: 09/27/19 19:56 Dose: 100 mls/hr Documented by: Azithromycin 500 mg/ Sodium (Chloride) 250 mls @ 250 mls/hr IVPB Q24H [facility] Last Admin: 09/28/19 16:52 Dose: 250 mls/hr Documented by: Lactated Ringer's (Lactated Ringers) 1,000 mls @ 50 mls/hr IV .Q20H [facility] Last Admin: 09/28/19 08:31 Dose: 50 mls/hr Documented by: Levothyroxine Sodium (Synthroid) 112 mcg PO DAILY@0700 [facility] Last Admin: 09/28/19 08:30 Dose: 112 mcg Documented by: Lorazepam (Ativan) 1 mg IV Q2HR PRN PRN Reason: CIWA 8 or 9 Lorazepam (Ativan) 1 mg IV Q1HR PRN PRN Reason: CIWA 10 to 15 Lorazepam (Ativan) 2 mg IV Q10M PRN PRN Reason: CIWA 16 or higher Stop: 09/28/19 20:50 Metformin HCl (Glucophage) 500 mg PO BID@0700,1999 [facility] Last Admin: 09/28/19 08:31 Dose: 500 mg Documented by: Metoprolol Tartrate (Lopressor) 12.5 mg PO TID [facility] Last Admin: 09/28/19 16:52 Dose: 12.5 mg Documented by: Miscellaneous Information (Pneumonia Protocol Utilized) 1 each PO ONCE PRN PRN Reason: Per Protocol Dulaglutide [ (Trulicity] 1.5 Mg) 1.5 mg SQ SA@0800 [facility] Polyethylene Glycol (Miralax) 17 gm PO DAILY PRN PRN Reason: Constipation Spironolactone (Aldactone) 12.5 mg PO DAILY@0700 [facility] Last Admin: 09/28/19 08:30 Dose: 12.5 mg Documented by: Thiamine HCl (Vitamin B-1) 100 mg PO BID-W/MEALS [facility] Last Admin: 09/28/19 16:52 Dose: 100 mg Documented by: Physical examination: VITAL SIGNS: 97.8, 18, 106/70, 99% on room air GENERAL: Propped up in bed, looking better. EYES: Pupils equal. Conjunctiva pale HEENT: External appearance of nose and ears normal, oral cavity grossly normal. NECK: JVD not raised; masses not palpable. HEART: First and second heart sounds are normal; no edema. LUNGS: Respiratory rate increased, decreased breath sounds less wheezing ABDOMEN: Soft, nontender, liver spleen not palpable, no masses palpable. PSYCH: Awake able to answer simple questions. INVESTIGATIONS, reviewed in the clinical context: Potassium 4.1 creatinine 1.04 Previous testing White count 7.5 hemoglobin 11.5 potassium 4.8 bun 31 creatinine 1.42 EKG tracing personally reviewed by me-possible junctional rhythm Chest x-ray film personally reviewed by me-significant right-sided pleural effusion with possible infiltrate Pleural fluid cultures pending Previous testing Patient's labs from May 2019 showed a bundle 32 creatinine 1.12 Assessment: -Right-sided pneumonia suspect gram-negative organism, POA, -Acute on chronic right-sided pleural effusion with thoracentesis 2 in the past likely transudate-1.2 L thoracentesis done yesterday. Again transudate -Acute COPD exacerbation in a current smoker, POA -Chronic nicotine dependence patient cigarette smoker -Essential hypertension -Diabetes mellitus type 2 on oral hypoglycemic -Chronic gait dysfunction uses a wheelchair -Persistent atrial fibrillation not a candidate for any anticoagulation -Chronic thoracic spine osteoarthritis -Hypothyroidism -GERD -Moderate to severe mitral regurgitation nonrheumatic -Severe tricuspid regurgitation nonrheumatic -Severe secondary pulmonary hypertension secondary to COPD Plan: Patient clinically doing better. Discussed with the patient. Cut to current medication due to plan. Hopefully can be discharged tomorrow.
[2019-09-28 20:41] LABS: Glucose,Whole Blood 211 mg/dL (75-99)
[2019-09-29] MEDS: IPRATROPIUM-ALBUTEROL 3 ML NEB INHALATION SCH ×6 (00:27→20:01)
[2019-09-29] MEDS: LACTATED RINGERS 1,000 ML IV SCH (05:43)
[2019-09-29 07:09] LABS: Glucose,Whole Blood 216 mg/dL (75-99)
[2019-09-29] MEDS ORDERED: Dulaglutide [Trulicity] 1.5 MG SQ SCH (08:00)
[2019-09-29] MEDS: SPIRONOLACTONE 25 MG TAB PO SCH (08:13)
[2019-09-29] MEDS: METOPROLOL TARTRATE 12.5 MG TAB PO SCH ×3 (08:14→20:08)
[2019-09-29] MEDS: ENOXAPARIN 40 MG/0.4 ML SYRINGE SQ SCH (08:15)
[2019-09-29] MEDS: metFORMIN 500 MG TAB PO SCH ×2 (08:15→20:08)
[2019-09-29] MEDS: THIAMINE 100 MG TAB PO SCH ×2 (08:15→17:31)
[2019-09-29] MEDS: LEVOTHYROXINE 112 MCG TAB PO SCH (08:15)
[2019-09-29] MEDS: BUDESONIDE 1 MG/2 ML NEBU INHALATION SCH ×2 (08:24→20:01)
[2019-09-29] MEDS: FORMOTEROL FUMARATE 20 MCG/2 ML NEBU INHALATION SCH ×2 (08:24→20:01)
[2019-09-29 12:05] LABS: Glucose,Whole Blood 154 mg/dL (75-99)
[2019-09-29] MEDS: FERROUS SULFATE 325 MG TAB PO SCH (12:44)
[2019-09-29 16:44] LABS: Glucose,Whole Blood 255 mg/dL (75-99)
--- NOTE | 2019-09-29 17:15 | P.PN ---
Progress Note - Text Progress Note Date: 09/29/19 Chief Complaint: Short of breath History of presenting complaint: This is a very pleasant 84-year-old patient of Dr. Gee. Chronic stable medical conditions include diabetes, GERD, hypertension, hypothyroid, diverticulosis, osteoarthritis, atrial fibrillation, chronic right-sided pleural effusion has had thoracentesis 2. Has some chronic loculation. Not a Candidate for anticoagulation because of lower GI bleeding. Also's had recurrent rectal bleeding because of radiation proctitis and anticoagulation. Has known radiation cystitis and does follow with Dr. Guzman. Does use a scooter at baseline. Lives at [facility]. Has continued to smoke cigarettes and drinks 2 shots a day. Patient now presents with worsening shortness of breath some wheezing cough and large amount of phlegm or difficulties. Denies any fever and chills. Appetite is gone down. Feels weak tired rundown. Admitted for the same. Admitted with a diagnosis of breath and pneumonia, acute on chronic right-sided pleural effusion, acute COPD exacerbation. 1.2 L of fluid was removed from the right side catherine colored, transudate Today-earlier patient had been very anxious and was given Ativan. Patient already sleepy and drowsy. Review of systems: Couldn't be done today Active Medications Albuterol/Ipratropium (Duoneb 0.5 Mg-3 Mg/3 Ml Soln) 3 ml INHALATION RT-Q4H [facility] Last Admin: 09/29/19 16:12 Dose: 3 ml Documented by: Budesonide (Pulmicort) 1 mg INHALATION RT-BID [facility] Last Admin: 09/29/19 08:24 Dose: 1 mg Documented by: Enoxaparin Sodium (Lovenox) 40 mg SQ DAILY [facility] Last Admin: 09/29/19 08:15 Dose: 40 mg Documented by: Ferrous Sulfate (Feosol) 325 mg PO DAILY@1200 [facility] Last Admin: 09/29/19 12:44 Dose: Not Given Documented by: Formoterol Fumarate (Perforomist) 20 mcg INHALATION RT-BID [facility] Last Admin: 09/29/19 08:24 Dose: 20 mcg Documented by: Ceftriaxone Sodium 1 gm/ (Sodium Chloride) 50 mls @ 100 mls/hr IVPB [facility] Stop: 09/30/19 21:01 Last Admin: 09/28/19 21:27 Dose: 100 mls/hr Documented by: Azithromycin 500 mg/ Sodium (Chloride) 250 mls @ 250 mls/hr IVPB Q24H [facility] Last Admin: 09/28/19 16:52 Dose: 250 mls/hr Documented by: Lactated Ringer's (Lactated Ringers) 1,000 mls @ 50 mls/hr IV .Q20H [facility] Last Admin: 09/29/19 05:43 Dose: 50 mls/hr Documented by: Levothyroxine Sodium (Synthroid) 112 mcg PO DAILY@0700 [facility] Last Admin: 09/29/19 08:15 Dose: 112 mcg Documented by: Lorazepam (Ativan) 1 mg IV Q2HR PRN PRN Reason: CIWA 8 or 9 Last Admin: 09/29/19 10:23 Dose: 1 mg Documented by: Lorazepam (Ativan) 1 mg IV Q1HR PRN PRN Reason: CIWA 10 to 15 Metformin HCl (Glucophage) 500 mg PO BID@699,1999 [facility] Last Admin: 09/29/19 08:15 Dose: 500 mg Documented by: Metoprolol Tartrate (Lopressor) 12.5 mg PO TID [facility] Last Admin: 09/29/19 16:00 Dose: 12.5 mg Documented by: Miscellaneous Information (Pneumonia Protocol Utilized) 1 each PO ONCE PRN PRN Reason: Per Protocol Dulaglutide [ (Trulicity] 1.5 Mg) 1.5 mg SQ SA@0800 [facility] Last Admin: 09/29/19 08:16 Dose: Not Given Documented by: Polyethylene Glycol (Miralax) 17 gm PO DAILY PRN PRN Reason: Constipation Spironolactone (Aldactone) 12.5 mg PO DAILY@0700 [facility] Last Admin: 09/29/19 08:13 Dose: 12.5 mg Documented by: Thiamine HCl (Vitamin B-1) 100 mg PO BID-W/MEALS [facility] Last Admin: 09/29/19 08:15 Dose: 100 mg Documented by: Physical examination: VITAL SIGNS: 98.8, 108, 16, 109/74, her percent on 2 L GENERAL: Sleepy, lethargic EYES: Pupils equal. Conjunctiva pale HEENT: External appearance of nose and ears normal, oral cavity grossly normal. NECK: JVD not raised; masses not palpable. HEART: First and second heart sounds are normal; no edema. LUNGS: Respiratory rate increased, decreased breath sounds less wheezing ABDOMEN: Soft, nontender, liver spleen not palpable, no masses palpable. PSYCH: Sleepy INVESTIGATIONS, reviewed in the clinical context: Potassium 4.1 creatinine 1.04 Previous testing White count 7.5 hemoglobin 11.5 potassium 4.8 bun 31 creatinine 1.42 EKG tracing personally reviewed by me-possible junctional rhythm Chest x-ray film personally reviewed by me-significant right-sided pleural effusion with possible infiltrate Pleural fluid cultures pending Previous testing Patient's labs from May 2019 showed a bundle 32 creatinine 1.12 Assessment: -Right-sided pneumonia suspect gram-negative organism, POA, -Acute on chronic right-sided pleural effusion with thoracentesis 2 in the past likely transudate-1.2 L thoracentesis done yesterday. Again transudate -Acute COPD exacerbation in a current smoker, POA -Chronic nicotine dependence patient cigarette smoker -Essential hypertension -Diabetes mellitus type 2 on oral hypoglycemic -Chronic gait dysfunction uses a wheelchair -Persistent atrial fibrillation not a candidate for any anticoagulation -Chronic thoracic spine osteoarthritis -Hypothyroidism -GERD -Moderate to severe mitral regurgitation nonrheumatic -Severe tricuspid regurgitation nonrheumatic -Severe secondary pulmonary hypertension secondary to COPD Plan: Patient of the sleepy from the Ativan he received earlier today. Total dose to hold off any going in the future. Patient should be treated for discharged tomorrow.
[2019-09-29 19:59] LABS: Glucose,Whole Blood 239 mg/dL (75-99)
[2019-09-30] MEDS: IPRATROPIUM-ALBUTEROL 3 ML NEB INHALATION SCH ×4 (00:13→11:42)
[2019-09-30] MEDS: LEVOTHYROXINE 112 MCG TAB PO SCH (05:16)
[2019-09-30 07:07] LABS: Glucose,Whole Blood 157 mg/dL (75-99)
[2019-09-30] MEDS: METOPROLOL TARTRATE 12.5 MG TAB PO SCH (08:45)
[2019-09-30] MEDS: SPIRONOLACTONE 25 MG TAB PO SCH (08:45)
[2019-09-30] MEDS: ENOXAPARIN 40 MG/0.4 ML SYRINGE SQ SCH (08:46)
[2019-09-30] MEDS: THIAMINE 100 MG TAB PO SCH (08:46)
[2019-09-30] MEDS: FORMOTEROL FUMARATE 20 MCG/2 ML NEBU INHALATION SCH (08:46)
[2019-09-30] MEDS: metFORMIN 500 MG TAB PO SCH (08:46)
[2019-09-30] MEDS: BUDESONIDE 1 MG/2 ML NEBU INHALATION SCH (08:46)
[2019-09-30 11:15] VITALS: BP 124/78; RESP 20; TEMP 97.8
[2019-09-30 11:53] VITALS: PULSE 108
--- NOTE | 2019-09-30 21:35 | P.DS ---
Providers Date of admission: 09/26/19 20:52 Expected date of discharge: 09/30/19 Attending physician: Ramez Redman Consults: 09/27/19 09:16 Consult Physician Routine Consulting Provider: Ean Hook Consult Reason/Comments: abnormal cxr Do you want consulting provider notified?: Yes Primary care physician: Jesse Gee [facility] Course: Chief Complaint: Short of breath History of presenting complaint: This is a very pleasant 84-year-old patient of Dr. Gee. Chronic stable medical conditions include diabetes, GERD, hypertension, hypothyroid, di verticulosis, osteoarthritis, atrial fibrillation, chronic right-sided pleural effusion has had thoracentesis 2. Has some chronic loculation. Not a Candidate for anticoagulation because of lower GI bleeding. Also's had recurrent rectal bleeding because of radiation proctitis and anticoagulation. Has known radiation cystitis and does follow with Dr. Guzman. Does use a scooter at baseline. Lives at [facility]. Has continued to smoke cigarettes and drinks 2 shots a day. Patient now presents with worsening shortness of breath some wheezing cough and large amount of phlegm or difficulties. Denies any fever and chills. Appetite is gone down. Feels weak tired rundown. Admitted for the same. Admitted with a diagnosis pneumonia, acute on chronic right-sided pleural effusion, acute COPD exacerbation. 1.2 L of fluid was removed from the right side catherine colored, transudate. Treated with DuoNeb, bronchodilators, IV ceftriaxone and Zithromax. Cultures came back negative. Today-Doing much better. Tolerating a diet. Ready go back to his assisted living. Hand Bender: Dr. Ortega from pulmonary Physical examination: VITAL SIGNS: 97.8, 110, 20, 08/17/1975, her percent room air GENERAL: Sitting up in a chair, comfortable EYES: Pupils equal. Conjunctiva pale HEENT: External appearance of nose and ears normal, oral cavity grossly normal. NECK: JVD not raised; masses not palpable. HEART: First and second heart sounds are normal; no edema. LUNGS: Respiratory rate increased, decreased breath sounds ABDOMEN: Soft, nontender, liver spleen not palpable, no masses palpable. PSYCH: Awake, answering questions INVESTIGATIONS, reviewed in the clinical context: Potassium 4.1 creatinine 1.04 Previous testing White count 7.5 hemoglobin 11.5 potassium 4.8 bun 31 creatinine 1.42 EKG tracing personally reviewed by me-possible junctional rhythm Chest x-ray film personally reviewed by me-significant right-sided pleural effusion with possible infiltrate Pleural fluid cultures some pending rest negative Previous testing Patient's labs from May 2019 showed a bundle 32 creatinine 1.12 Assessment: -Right-sided pneumonia suspect gram-negative organism, POA, -Acute on chronic right-sided pleural effusion with thoracentesis 2 in the past likely transudate-1.2 L thoracentesis done yesterday. Again transudate -Chronic right-sided pleural effusion -Acute COPD exacerbation in a current smoker, POA -Chronic nicotine dependence patient cigarette smoker -Essential hypertension -Diabetes mellitus type 2 on oral hypoglycemic -Chronic gait dysfunction uses a wheelchair -Persistent atrial fibrillation not a candidate for any anticoagulation -Chronic thoracic spine osteoarthritis -Hypothyroidism -GERD -Moderate to severe mitral regurgitation nonrheumatic -Severe tricuspid regurgitation nonrheumatic -Severe secondary pulmonary hypertension secondary to COPD Disposition: [facility] Patient Condition at Discharge: Stable Plan - Discharge Summary Discharge Rx Participant: No New Discharge Prescriptions: New Cefuroxime Axetil [Ceftin] 500 mg PO BID 5 Days #10 tab Continue metFORMIN HCL [Glucophage] 500 mg PO BID@0700,1999 Umeclidinium [place] [Incruse Ellipta] 1 puff INHALATION RT-DAILY@0700 Ipratropium [place] [Atrovent Hfa] 2 puff INHALATION RT-QID Spironolactone 12.5 mg PO DAILY@0700 Metoprolol Succinate [Toprol XL] 75 mg PO DAILY@0700 Ferrous Gluconate 324 mg PO DAILY@1200 Albuterol Inhaler [Ventolin Hfa Inhaler] 2 puff INHALATION RT-Q4H PRN PRN Reason: Shortness Of Breath Levothyroxine Sodium [Synthroid] 112 mcg PO DAILY@0700 Furosemide [Lasix] 40 mg PO DAILY@0700 Dulaglutide [Trulicity] 1.5 mg SQ SA@0800 Polyethylene Glycol 3350 [Miralax] 17 gm PO DAILY PRN PRN Reason: Constipation Budesonide-Formot 160-4.5 Mcg [Symbicort 160-4.5 Mcg Inhaler] 2 puff INHALATION RT-BID@0700,1999 Cetirizine HCl 10 mg PO DAILY@0700 Discharge Medication List Ipratropium [place] [Atrovent Hfa] 2 puff INHALATION RT-QID 09/16/17 [History] Umeclidinium [place] [Incruse Ellipta] 1 puff INHALATION RT-DAILY@69909/16/17 [History] metFORMIN HCL [Glucophage] 500 mg PO BID@699,199909/16/17 [History] Ferrous Gluconate 324 mg PO DAILY@1200 12/08/18 [History] Metoprolol Succinate [Toprol XL] 75 mg PO DAILY@69912/08/18 [History] Spironolactone 12.5 mg PO DAILY@69912/08/18 [History] Albuterol Inhaler [Ventolin Hfa Inhaler] 2 puff INHALATION RT-Q4H PRN 06/15/19 [History] Dulaglutide [Trulicity] 1.5 mg SQ SA@79906/15/19 [History] Furosemide [Lasix] 40 mg PO DAILY@69906/15/19 [History] Levothyroxine Sodium [Synthroid] 112 mcg PO DAILY@69906/15/19 [History] Budesonide-Formot 160-4.5 Mcg [Symbicort 160-4.5 Mcg Inhaler] 2 puff INHALATION RT-BID@699,199909/26/19 [History] Cetirizine HCl 10 mg PO DAILY@69909/26/19 [History] Polyethylene Glycol 3350 [Miralax] 17 gm PO DAILY PRN 09/26/19 [History] Cefuroxime Axetil [Ceftin] 500 mg PO BID 5 Days #10 tab 09/29/19 [Rx] Follow up Appointment(s)/Referral(s): Jesse Gee MD [Primary Care Provider] - 1-2 days Discharge Disposition: HOME SELF-CARE
--- NOTE | 2019-10-03 12:48 | CDI ---
Documentation Clarification Form Date: 10/03/19 From: Ngozi Beckett CCS Phone: If you have a question about this query, please contact Kateryna Mcneal, [employer] Consultant at [phone] between 8am and 5pm. Admit Date: 09/26/19 Discharge Date: 09/30/19 Patient Name: Jose Chakraborty Visit Number: [id number] ATTENTION: The Clinical Documentation Specialists (CDI) and [facility] Coding Staff appreciate your assistance in clarifying documentation. Please respond to the clarification below the line at the bottom and electronically sign. The CDI & [facility] Coding staff will review the response and follow-up if needed. Please note: Queries are made part of the Legal Health Record. If you have any questions, please contact the author of this message via ITS. Dear Dr. Redman, CHF is documented in the ED, PNs, Consult. History/Risk Factors: HTN, COPD, CAD, PHTN, Valve disease Clinical Indicators: Pleural effusion, SOB VS/Pulse OX: BP 102/58, RR 20, TN 108, O2 Sat 95 BNP: 5760 Echocardiogram Results: The left ventricular size is normal.There is moderate concentric left ventricular hypertrophy.Overall left ventricular systolic function is mildly impaired with, an EF between 45 - 50 %.Increased Lap Grade II Diastolic Dysfunction. Chest X Ray: There is pleural effusion and consolidation and atelectasis in the right lung slightly worse than last exam.Pulmonary vascularity increased slightly compared to last exam but no obvious heart failure. Treatment: Thoracentesis, Lasix 40 mg Tab PO daily In your professional opinion, can you please clarify the acuity and type of CHF if known? Systolic Heart Failure: Acute Chronic Acute on Chronic Diastolic Heart Failure: Acute Chronic Acute on Chronic Systolic & Diastolic Heart Failure: Acute Chronic Acute on Chronic Heart Failure Unable to Determine Other, please specify Acute on chronic congestive heart failure from systolic and diastolic dysfunction MTDD
== END 2019-09-30 12:38 | disposition home or self-care (01) | DRG 177 ==
LOC: EC 17:28 → 4SSUR 20:52
PROVIDERS: ADMIT Hospitalist; ATTEND Hospitalist
PROC: 0W993ZZ Drainage of Right Pleural Cavity, Percutaneous Approach (ICD-10-PCS; principal; 2019-09-27)
DX: J15.6 Pneumonia due to other Gram-negative bacteria (principal); I50.43 Acute on chronic combined systolic (congestive) and diastolic (congestive) heart failure; J44.1 Chronic obstructive pulmonary disease with (acute) exacerbation; J44.0 Chronic obstructive pulmonary disease with (acute) lower respiratory infection; I48.19 Other persistent atrial fibrillation; N30.40 Irradiation cystitis without hematuria; J90 Pleural effusion, not elsewhere classified; I27.29 Other secondary pulmonary hypertension; D63.8 Anemia in other chronic diseases classified elsewhere; E11.40 Type 2 diabetes mellitus with diabetic neuropathy, unspecified; I11.0 Hypertensive heart disease with heart failure; F41.9 Anxiety disorder, unspecified; K21.9 Gastro-esophageal reflux disease without esophagitis; F10.20 Alcohol dependence, uncomplicated; M47.814 Spondylosis without myelopathy or radiculopathy, thoracic region; K57.90 Diverticulosis of intestine, part unspecified, without perforation or abscess without bleeding; E89.0 Postprocedural hypothyroidism; F32.9 Major depressive disorder, single episode, unspecified; F17.210 Nicotine dependence, cigarettes, uncomplicated; R26.9 Unspecified abnormalities of gait and mobility; I34.0 Nonrheumatic mitral (valve) insufficiency; I36.1 Nonrheumatic tricuspid (valve) insufficiency; I25.10 Atherosclerotic heart disease of native coronary artery without angina pectoris; I35.0 Nonrheumatic aortic (valve) stenosis; Y90.0 Blood alcohol level of less than 20 mg/100 ml; Y84.2 Radiological procedure and radiotherapy as the cause of abnormal reaction of the patient, or of later complication, without mention of misadventure at the time of the procedure; Z71.3 Dietary counseling and surveillance; Z79.84 Long term (current) use of oral hypoglycemic drugs; Z79.899 Other long term (current) drug therapy; Z79.890 Hormone replacement therapy; Z79.51 Long term (current) use of inhaled steroids; Z87.01 Personal history of pneumonia (recurrent); Z91.81 History of falling; Z85.850 Personal history of malignant neoplasm of thyroid; Z85.828 Personal history of other malignant neoplasm of skin; Z85.46 Personal history of malignant neoplasm of prostate; Z87.19 Personal history of other diseases of the digestive system; Z98.890 Other specified postprocedural states; Z86.010 Personal history of colon polyps; Z98.42 Cataract extraction status, left eye; Z98.41 Cataract extraction status, right eye; Z90.49 Acquired absence of other specified parts of digestive tract; Z92.3 Personal history of irradiation; Z87.11 Personal history of peptic ulcer disease; Z87.81 Personal history of (healed) traumatic fracture; Z86.15 Personal history of latent tuberculosis infection; Z88.6 Allergy status to analgesic agent; Z82.5 Family history of asthma and other chronic lower respiratory diseases; Z82.3 Family history of stroke
CPT/HCPCS: 36415; 71046; 71250; 80048; 80053; 80320; 81001; 82945; 83605; 83615; 83735; 83880; 84157; 84311; 84484; 85025; 85610; 85730; 87040; 87070; 87102; 87116; 87205; 87206; 87252; 87496; 87498; 87502; 87529; 87634; 87798; 88108; 88305; 89050; 93005; 93306; 94640; 94760; 96361; 96365; 99285

== ENCOUNTER 2019-12-27 20:36 | Observation (INO) | payer MEDICARE, OTHER ==
[2019-12-27] MEDS ORDERED: ACETAMINOPHEN TAB 325 MG TAB PO STA (20:48)
[2019-12-27 21:19] LABS: Basophils % (A) 0 %; Eosinophils # (A) 0.1 k/uL (0-0.7); Eosinophils % (A) 2 %; HGB 11.5 gm/dL (13.0-17.5); Lymphocytes # (A) 0.4 k/uL (1.0-4.8); Lymphocytes % (A) 5 %; MCH 36.5 pg (25.0-35.0); MCHC 33.7 g/dL (31.0-37.0); MCV 108.5 fL (80.0-100.0); Macrocytosis Marked; Mean Platelet Volume 7.8; Monocytes # (A) 0.3 k/uL (0-1.0); Monocytes % (A) 4 %; Neutrophils # (A) 6.9 k/uL (1.3-7.7); Neutrophils % (A) 88 %; Platelet Count 309 k/uL (150-450); RBC 3.14 m/uL (4.30-5.90); RDW 14.4 % (11.5-15.5); WBC 7.8 k/uL (3.8-10.6)
--- NOTE | 2019-12-27 21:28 | XR ---
EXAMINATION: XR chest 2V DATE AND TIME: 12/27/2019 9:16 PM CLINICAL INDICATION: SOB; Fever TECHNIQUE: Departmental protocol COMPARISON: 09/27/2019 FINDINGS: The previously seen complex right pleural effusion is redemonstrated, with slight interval increase i n its volume since the prior study of 02/27/2020. Associated passive atelectasis of the right lower lob e and right middle lobe is redemonstrated. There is no pneumothorax. There is no left pleural effusion. The cardiac silhouette is mildly enlarged. The skeletal structures and soft tissues are negative for acute findings. IMPRESSION: Moderate right pleural effusion with passive atelectasis redemonstrated, slightly progressed the prio r study.
[2019-12-27 21:31] LABS: INR 0.9 (<1.2); Partial Thromboplastin Time 26.6 sec (22.0-30.0); Prothrombin Time 9.8 sec (9.0-12.0)
[2019-12-27 21:32] LABS: Albumin 3.4 g/dL (3.5-5.0); Calcium 8.7 mg/dL (8.4-10.2); Potassium 4.2 mmol/L (3.5-5.1); Total Bilirubin 0.8 mg/dL (0.2-1.3); Total Protein 6.5 g/dL (6.3-8.2)
[2019-12-27] MEDS: SODIUM CHLORIDE 0.9% 500 ML 500 ML IV SCH ×2 (21:45→21:46)
--- NOTE | 2019-12-27 21:54 | ED ---
SOB HPI - General Chief Complaint: Shortness of Breath Stated Complaint: SOB Time Seen by Provider: 12/27/19 20:37 Source: patient, EMS Mode of arrival: EMS Limitations: no limitations - History of Present Illness Initial Comments: Jose is an 84-year-old gentleman with extensive past medical history is brought to the ER today by ambulance for evaluation shortness breath and hypoxia. Patient lives in independent living facility. He reports a couple days of shortness of breath however today could not catch his breath felt heaviness in his chest, EMS arrived on scene and noted that he was hypoxic with oxygen saturation 80s he is given a breathing treatment and placed on oxygen via nasal cannula with improvement in his symptoms and oxygen saturation improvement in the mid 90s. Patient denies any exertional chest pain just reportedly felt tightness throughout his chest and inability to breathe. He denies any recent fevers chills nausea or vomiting. He does live in an assisted living and is uncertain if these had direct contact with anybody with COVID - Related Data Home Medications Medication Instructions Recorded Confirmed Ipratropium [place] [Atrovent Hfa] 2 puff INHALATION RT-QID 09/16/17 09/26/19 Umeclidinium [place] [Incruse 1 puff INHALATION RT-DAILY@69909/16/17 09/26/19 Ellipta] metFORMIN HCL [Glucophage] 500 mg PO BID@699,199909/16/17 09/26/19 Ferrous Gluconate 324 mg PO DAILY@1200 12/08/18 09/26/19 Metoprolol Succinate [Toprol XL] 75 mg PO DAILY@69912/08/18 09/26/19 Spironolactone 12.5 mg PO DAILY@69912/08/18 09/26/19 Albuterol Inhaler (Mhu) [Ventolin 2 puff INHALATION RT-Q4H PRN 06/15/19 09/26/19 Hfa Inhaler (Mhu)] Dulaglutide [Trulicity] 1.5 mg SQ SA@79906/15/19 09/26/19 Furosemide [Lasix] 40 mg PO DAILY@0706/15/19 09/26/19 Levothyroxine Sodium [Synthroid] 112 mcg PO DAILY@69906/15/19 09/26/19 Budesonide-Formot 160-4.5 Mcg 2 puff INHALATION RT-BID@07,199909/26/19 09/26/19 [Symbicort 160-4.5 Mcg Inhaler] Cetirizine HCl 10 mg PO DAILY@0700 09/26/19 09/26/19 Polyethylene Glycol 3350 [Miralax] 17 gm PO DAILY PRN 09/26/19 09/26/19 Previous Rx's Medication Instructions Recorded Cefuroxime Axetil [Ceftin] 500 mg PO BID 5 Days #10 tab 09/29/19 Allergies Allergy/AdvReac Type Severity Reaction Status Date / Time aspirin Allergy Rash/Hives Verified 12/27/19 20:44 Review of Systems ROS Statement: Those systems with pertinent positive or pertinent negative responses have been documented in the HPI. ROS Other: All systems not noted in ROS Statement are negative. Past Medical History Past Medical History: Atrial Fibrillation, Cancer, COPD, Diabetes Mellitus, GERD/Reflux, Hypertension, Liver Disease, Neurologic Disorder, Osteoarthritis (O A), Pneumonia, Prostate Disorder, Thyroid Disorder Additional Past Medical History / Comment(s): latent TB, diabetic neuropathy, COPD, chronic atrial fibrillation, thyroid cancer with a previous thyroidectomy, hypothyroidism, skin cancers with removals, prostate cancer with radiation, lower GI bleed thought secondary to radiation proctitis, diverticular disease, chronic anemia, duodenal ulcer, ETOH, history of ETOH withdrawal/delirium tremors, R leg weakness, history of falls, chronic lower extremity edema, arthritis thoracic spine. History of Any Multi-Drug Resistant Organisms: None Reported Past Surgical History: Bowel Resection Additional Past Surgical History / Comment(s): thyroidectomy, colonoscopy/polypectomy, skin cancer removed, bilateral cataracts, bowel resection-d/t diverticulits, sigmoidoscopy Past Anesthesia/Blood Transfusion Reactions: No Reported Reaction Additional Past Anesthesia/Blood Transfusion Reaction / Comment(s): has had blood transfusions-no reaction Past Psychological History: Anxiety, Depression Smoking Status: Current every day smoker Past Alcohol Use History: Abuse, Daily Past Drug Use History: None Reported - Past Family History Father Family Medical History: Asthma, CVA/TIA Additional Family Medical History / Comment(s): pacemaker, smoker Mother Family Medical History: Chest Pain / Angina Additional Family Medical History / Comment(s): smoker General Exam Limitations: no limitations Course Vital Signs 12/27/19 12/27/19 12/28/19 20:38 22:34 00:00 Temperature 99.4 F 98.1 F Pulse Rate 100 94 98 Respiratory 18 18 18 Rate Blood Pressure 102/62 99/61 98/61 O2 Sat by Pulse 98 97 97 Oximetry 12/28/19 12/28/19 02:08 03:06 Temperature 98 F Pulse Rate 102 H 106 H Respiratory 18 16 Rate Blood Pressure 109/80 95/53 O2 Sat by Pulse 98 99 Oximetry Medical Decision Making - Medical Decision Making Patient was seen and evaluated, history obtained from patient and EMS Patient lives in assisted living Possibe COVID exposures Labs unremarkable CXR with effusion and atelectasis, no obvious pneumonia Patient was hypoxic on arrival, required breathing treatment and supplemental oxygen Discussed options for patient placement including discharge home vs obs due to observed hypoxia. Patient concerned about safety of discharge home, will be placed in obs for possible pneumonia. - Lab Data Result diagrams: 12/27/19 20:56 12/27/19 20:56 Lab Results 12/27/19 12/27/19 12/27/19 Range/Units 20:56 20:56 20:56 WBC 7.8 (3.8-10.6) k/uL RBC 3.14 L (4.30-5.90) m/uL Hgb 11.5 L (13.0-17.5) gm/dL Hct 34.0 L (39.0-53.0) % MCV 108.5 H (80.0-100.0) fL MCH 36.5 H (25.0-35.0) pg MCHC 33.7 (31.0-37.0) g/dL RDW 14.4 (11.5-15.5) % Plt Count 309 (150-450) k/uL Neutrophils % 88 % Lymphocytes % 5 % Monocytes % 4 % Eosinophils % 2 % Basophils % 0 % Neutrophils # 6.9 (1.3-7.7) k/uL Lymphocytes # 0.4 L (1.0-4.8) k/uL Monocytes # 0.3 (0-1.0) k/uL Eosinophils # 0.1 (0-0.7) k/uL Basophils # 0.0 (0-0.2) k/uL Macrocytosis Marked A PT 9.8 (9.0-12.0) sec INR 0.9 (<1.2) APTT 26.6 (22.0-30.0) sec Sodium 133 L (137-145) mmol/L Potassium 4.2 (3.5-5.1) mmol/L Chloride 99 (98-107) mmol/L Carbon Dioxide 22 (22-30) mmol/L Anion Gap 12 mmol/L BUN 26 H (9-20) mg/dL Creatinine 1.18 (0.66-1.25) mg/dL Est GFR (CKD-EPI)AfAm 66 (>60 ml/min/1.73 sqM) Est GFR (CKD-EPI)NonAf 57 (>60 ml/min/1.73 sqM) Glucose 135 H (74-99) mg/dL Plasma Lactic Acid Claus (0.7-2.0) mmol/L Calcium 8.7 (8.4-10.2) mg/dL Total Bilirubin 0.8 (0.2-1.3) mg/dL AST 25 (17-59) U/L ALT 9 (4-49) U/L Alkaline Phosphatase 99 (38-126) U/L Troponin I (0.000-0.034) ng/mL Total Protein 6.5 (6.3-8.2) g/dL Albumin 3.4 L (3.5-5.0) g/dL 12/27/19 12/27/19 Range/Units 20:56 20:56 WBC (3.8-10.6) k/uL RBC (4.30-5.90) m/uL Hgb (13.0-17.5) gm/dL Hct (39.0-53.0) % MCV (80.0-100.0) fL MCH (25.0-35.0) pg MCHC (31.0-37.0) g/dL RDW (11.5-15.5) % Plt Count (150-450) k/uL Neutrophils % % Lymphocytes % % Monocytes % % Eosinophils % % Basophils % % Neutrophils # (1.3-7.7) k/uL Lymphocytes # (1.0-4.8) k/uL Monocytes # (0-1.0) k/uL Eosinophils # (0-0.7) k/uL Basophils # (0-0.2) k/uL Macrocytosis PT (9.0-12.0) sec INR (<1.2) APTT (22.0-30.0) sec Sodium (137-145) mmol/L Potassium (3.5-5.1) mmol/L Chloride (98-107) mmol/L Carbon Dioxide (22-30) mmol/L Anion Gap mmol/L BUN (9-20) mg/dL Creatinine (0.66-1.25) mg/dL Est GFR (CKD-EPI)AfAm (>60 ml/min/1.73 sqM) Est GFR (CKD-EPI)NonAf (>60 ml/min/1.73 sqM) Glucose (74-99) mg/dL Plasma Lactic Acid Claus 1.1 (0.7-2.0) mmol/L Calcium (8.4-10.2) mg/dL Total Bilirubin (0.2-1.3) mg/dL AST (17-59) U/L ALT (4-49) U/L Alkaline Phosphatase (38-126) U/L Troponin I <0.012 (0.000-0.034) ng/mL Total Protein (6.3-8.2) g/dL Albumin (3.5-5.0) g/dL - EKG Data -: EKG Interpreted by Co EKG Comments: EKG was obtained due to complaint of shortness of breath, EKG was obtained at 2046, rate is 108 rhythm appears to be an accelerated junctional rhythm versus a sinus rhythm with prolonged SD, P waves are not visible in every lead however, there is no ST elevations or depressions no evidence of acute ischemia or infarction. Disposition Clinical Impression: Diastolic CHF, acute on chronic, COPD (chronic obstructive pulmonary disease), Hypoxia Disposition: ADMITTED IP TO THIS [facility] Condition: Serious
[2019-12-28] MEDS ORDERED: PNEUMONIA PROTOCOL UTILIZED 1 EACH MISC PO PRN (01:43)
[2019-12-28] MEDS ORDERED: AZITHROMYCIN 500 MG in SODIUM CHLORIDE 0.9% 250 ML IVPB STA (01:43)
[2019-12-28] MEDS: SODIUM CHLORIDE 0.9% 1,000 ML IV SCH ×3 (01:57→21:49)
[2019-12-28] MEDS ORDERED: IPRATROPIUM-ALBUTEROL 3 ML NEB INHALATION PRN (05:12)
[2019-12-28] MEDS: IPRATROPIUM-ALBUTEROL 3 ML NEB INHALATION SCH ×6 (05:28→23:22)
[2019-12-28 07:22] LABS: Glucose,Whole Blood 177 mg/dL (75-99)
[2019-12-28 09:02] LABS: Appearance,Urine Cloudy (Clear); Bacteria,Urine Occasional /hpf; Bilirubin,Urine Negative (Negative); Blood,Urine Small (Negative); Color,Urine Yellow; Glucose,Urine (UA) Negative (Negative); Ketones,Urine Negative (Negative); Leukocyte Esterase,Urine Large (Negative); Nitrite,Urine Negative (Negative); Protein,Urine Trace (Negative); RBC,Urine 13 /hpf (0-5); Specific Gravity,Urine 1.014 (1.001-1.035); Squamous Epithelial Cell,Urine 2 /hpf (0-4); Urobilinogen,Urine <2.0 mg/dL (<2.0); WBC,Urine >182 /hpf (0-5)
[2019-12-28] MEDS ORDERED: POLYETHYLENE GLYCOL 3350 17 GM POWD.PACK PO PRN (11:07)
[2019-12-28] MEDS: SYMBICORT 160-4.5 MCG INHALER INHALATION SCH ×2 (11:17→19:08)
[2019-12-28] MEDS: LEVOTHYROXINE 112 MCG TAB PO SCH (11:35)
[2019-12-28] MEDS: SPIRONOLACTONE 25 MG TAB PO SCH (11:35)
[2019-12-28] MEDS: METOPROLOL SUCCINATE (ER) 25 MG TAB.ER.24H PO SCH (11:36)
[2019-12-28 11:48] LABS: Glucose,Whole Blood 186 mg/dL (75-99)
[2019-12-28] MEDS ORDERED: IPRATROPIUM 0.5 MG/2.5 ML NEBU INHALATION SCH (12:00)
--- NOTE | 2019-12-28 16:26 | P.HPIM ---
History of Present Illness H&P Date: 12/28/19 Chief Complaint: Short of breath Chief Complaint: Short of breath History of presenting complaint: This is a very pleasant 84-year-old patient of Dr. Gee. Chronic stable medical conditions include diabetes, GERD, hypertension, hypothyroid, divert iculosis, osteoarthritis, atrial fibrillation, chronic right-sided pleural effusion has had thoracentesis 2. Has some chronic loculation. Not a Candidate for anticoagulation because of lower GI bleeding. Also's had recurrent rectal bleeding because of radiation proctitis and anticoagulation. Has known radiation cystitis and does follow with Dr. Guzman. Does use a scooter at baseline. Lives at [facility]. Has been still smoking up to very recently. EMS was called out at patient became short of breath earlier today. Was, cough. Bringing up some sputum. Not sure about the color. Appetite is okay. Feels it tired and rundown. No fever no chills. EKG done by EMS showed sinus tachycardia. Review of systems: GEN.: Tired EYES: None HEENT: Decreased hearing NECK: None RESPIRATORY: As above CARDIOVASCULAR: None GASTROINTESTINAL: None GENITOURINARY: None MUSCULOSKELETAL: Pain in the joints LYMPHATICS: None HEMATOLOGICAL: None PSYCHIATRY: Forgetful NEUROLOGICAL: Is uses a scooter Past medical history to include: Diabetes, GERD, hypertension, hypothyroid, diverticulosis, osteoarthritis, atrial fibrillation not a candidate for anticoagulation, radiation proctitis with recurrent rectal bleeding from argan plasma coagulation, radiation cystitis, chronic right pleural effusion with thoracentesis 2 and loculated effusions Social history: smoking for many years. Lives at [facility]. Drinks 2 short of whiskey a day.. Has home health. Does use a scooter or wheelchair. Physical examination: VITAL SIGNS: 97.9, 106, 18, 108-74, 99% on room air GENERAL: BMI 19, laying in bed, tired EYES: Pupils equal. Conjunctiva pale HEENT: External appearance of nose and ears normal, oral cavity grossly normal. NECK: JVD not raised; masses not palpable. HEART: First and second heart sounds are normal; no edema. LUNGS: Respiratory rate increased, decreased breath sounds extremity wheezing ABDOMEN: Soft, nontender, liver spleen not palpable, no masses palpable. PSYCH: AAO 3, answering questions. NEUROLOGICAL: Cranial nerves grossly intact; no facial asymmetry, power and sensation grossly intact. LYMPHATICS: No lymph nodes palpable in the axilla and neck INVESTIGATIONS, reviewed in the clinical context: White count 7.8 hemoglobin 11.5 platelets 309 potassium 4.2 creatinine 1.18 UA positive for leukoesterase, WBC EKG tracing personally reviewed by roya baseline questionable junctional rhythm Chest x-ray film personally reviewed by wi-significant right-sided pleural effusion, with questionable infiltrate Assessment: -Acute COPD exacerbation in a current smoker, POA -Acute tracheobronchitis, POA - chronic right-sided pleural effusion with thoracentesis 2 in the past likely transudate with some loculated pleural effusion -Chronic nicotine dependence patient cigarette smoker -Essential hypertension -Diabetes mellitus type 2 on oral hypoglycemic -Chronic gait dysfunction uses a wheelchair -Persistent atrial fibrillation not a candidate for any anticoagulation -Chronic thoracic spine osteoarthritis -Hypothyroidism -GERD -Moderate to severe mitral regurgitation nonrheumatic -Severe tricuspid regurgitation nonrheumatic -Severe secondary pulmonary hypertension secondary to COPD Plan: Home medications resumed. Bronchodilators every 4 hours. Add IV Solu-Medrol. IV fluids. IV ceftriaxone. Add Mucinex. Nicotine patch. Care was discussed with the patient. Patient already started feeling better since presentation. Past Medical History Past Medical History: Atrial Fibrillation, Cancer, COPD, Diabetes Mellitus, GERD/Reflux, Hypertension, Liver Disease, Neurologic Disorder, Osteoarthritis ( OA), Pneumonia, Prostate Disorder, Thyroid Disorder Additional Past Medical History / Comment(s): latent TB, diabetic neuropathy, COPD, chronic atrial fibrillation, thyroid cancer with a previous thyroidectomy, hypothyroidism, skin cancers with removals, prostate cancer with radiation, lower GI bleed thought secondary to radiation proctitis, diverticular disease, chronic anemia, duodenal ulcer, ETOH, history of ETOH withdrawal/delirium tremors, Bilat leg weakness, history of falls, chronic lower extremity edema, arthritis thoracic spine. History of Any Multi-Drug Resistant Organisms: None Reported Past Surgical History: Bowel Resection Additional Past Surgical History / Comment(s): thyroidectomy, colonoscopy/polypectomy, skin cancer removed, bilateral cataracts, bowel resection-d/t diverticulits, sigmoidoscopy Past Anesthesia/Blood Transfusion Reactions: No Reported Reaction Additional Past Anesthesia/Blood Transfusion Reaction / Comment(s): has had blood transfusions-no reaction Past Psychological History: Anxiety, Depression Additional Psychological History / Comment(s): pt stated he lives at [facility],has motorized w/c and 2 -4 wheeled walkers. has home care but can't re member name of company.. 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 Smoking Status: Current every day smoker Past Alcohol Use History: Abuse, Daily Additional Past Alcohol Use History / Comment(s): started smoking in his mid 40's, 1ppd, pt stated he drinks 3 drinks per day, last drink was 2 days ago Past Drug Use History: None Reported - Past Family History Father Family Medical History: Asthma, CVA/TIA Additional Family Medical History / Comment(s): pacemaker, smoker Mother Family Medical History: Chest Pain / Angina Additional Family Medical History / Comment(s): smoker Medications and Allergies Home Medications Medication Instructions Recorded Confirmed Type Ipratropium [place] [Atrovent Hfa] 2 puff INHALATION RT-QID 09/16/17 12/28/19 History Umeclidinium [place] [Incruse 1 puff INHALATION RT-DAILY@0809/16/17 12/28/19 History Ellipta] metFORMIN HCL [Glucophage] 500 mg PO BID@799,199909/16/17 12/28/19 History Ferrous Gluconate 324 mg PO DAILY@79912/08/18 12/28/19 History Metoprolol Succinate [Toprol XL] 75 mg PO DAILY@79912/08/18 12/28/19 History Spironolactone 12.5 mg PO DAILY@0812/08/18 12/28/19 History Dulaglutide [Trulicity] 1.5 mg SQ SA@79906/15/19 12/28/19 History Furosemide [Lasix] 40 mg PO DAILY@79906/15/19 12/28/19 History Levothyroxine Sodium [Synthroid] 112 mcg PO DAILY@00 06/15/19 12/28/19 History Budesonide-Formot 160-4.5 Mcg 2 puff INHALATION RT-BID@799,199909/26/19 12/28/19 History [Symbicort 160-4.5 Mcg Inhaler] Cetirizine HCl 10 mg PO DAILY@0800 09/26/19 12/28/19 History Polyethylene Glycol 3350 [Miralax] 17 gm PO DAILY PRN 09/26/19 12/28/19 History Albuterol Inhaler [Ventolin Hfa 2 puff INHALATION RT-Q4H PRN 12/28/19 12/28/19 History Inhaler] Latanoprost/Pf [Latanoprost 0.005% 1 drop BOTH EYES HS 12/28/19 12/28/19 History Eye Drop] Allergies Allergy/AdvReac Type Severity Reaction Status Date / Time aspirin Allergy Rash/Hives Verified 12/28/19 09:55 Physical Exam Vitals: Vital Signs Temp Pulse Pulse Resp BP BP Pulse Ox 12/28/19 07:59 92 12/28/19 07:51 86 12/28/19 07:00 97.9 F 106 H 18 108/74 99 12/28/19 05:28 96 12/28/19 03:42 16 12/28/19 03:30 98.5 F 111 H 22 103/70 97 12/28/19 03:06 98 F 106 H 16 95/53 99 12/28/19 02:08 102 H 18 109/80 98 12/28/19 00:00 98.1 F 98 18 98/61 97 12/27/19 22:34 94 18 99/61 97 12/27/19 20:38 99.4 F 100 18 102/62 98 Intake and Output 12/27/19 12/28/19 12/28/19 22:59 06:59 14:59 Output Total 1 Balance -1 Output: Stool 1 Other: Voiding Method Urinal Urinal Diaper Diaper # Voids 2 1 # Bowel Movements 2 Weight 56.699 kg 56.699 kg Results CBC & Chem 7: 12/27/19 20:56 12/27/19 20:56 Labs: Abnormal Lab Results - Last 24 Hours (Table) 12/27/19 12/27/19 12/28/19 Range/Units 20:56 20:56 07:20 RBC 3.14 L (4.30-5.90) m/uL Hgb 11.5 L (13.0-17.5) gm/dL Hct 34.0 L (39.0-53.0) % MCV 108.5 H (80.0-100.0) fL MCH 36.5 H (25.0-35.0) pg Lymphocytes # 0.4 L (1.0-4.8) k/uL Macrocytosis Marked A Sodium 133 L (137-145) mmol/L BUN 26 H (9-20) mg/dL Glucose 135 H (74-99) mg/dL POC Glucose (mg/dL) 177 H (75-99) mg/dL Albumin 3.4 L (3.5-5.0) g/dL Urine Protein (Negative) Urine Blood (Negative) Ur Leukocyte Esterase (Negative) Urine RBC (0-5) /hpf Urine WBC (0-5) /hpf Urine WBC Clumps (None) /hpf Urine Bacteria (None) /hpf 12/28/19 Range/Units 08:30 RBC (4.30-5.90) m/uL Hgb (13.0-17.5) gm/dL Hct (39.0-53.0) % MCV (80.0-100.0) fL MCH (25.0-35.0) pg Lymphocytes # (1.0-4.8) k/uL Macrocytosis Sodium (137-145) mmol/L BUN (9-20) mg/dL Glucose (74-99) mg/dL POC Glucose (mg/dL) (75-99) mg/dL Albumin (3.5-5.0) g/dL Urine Protein Trace H (Negative) Urine Blood Small H (Negative) Ur Leukocyte Esterase Large H (Negative) Urine RBC 13 H (0-5) /hpf Urine WBC >182 H (0-5) /hpf Urine WBC Clumps Moderate H (None) /hpf Urine Bacteria Occasional H (None) /hpf Thrombosis Risk Factor Assmnt - Choose All That Apply Each Factor Represents 1 point: Abnormal pulmonary function (COPD), Serious lung disease incl. pneumonia (< 1month) Each Risk Factor Represents 3 Points: Age 75 years or older Thrombosis Risk Factor Assessment Total Risk Factor Score: 5 Thrombosis Risk Factor Assessment Level: High Risk
[2019-12-28] MEDS: guaiFENesin 600 MG TABLET.ER PO SCH ×2 (16:33→23:37)
[2019-12-28] MEDS: methylPREDNISolone SOD SUCCI 40 MG/ML 1 ML VIAL IV SCH ×2 (16:33→23:37)
[2019-12-28 17:05] LABS: Glucose,Whole Blood 182 mg/dL (75-99)
[2019-12-28] MEDS ORDERED: LATANOPROST 0.005% OPHTH DROPS 2.5 ML BTL BOTH EYES SCH (21:00)
[2019-12-28 21:05] LABS: Glucose,Whole Blood 334 mg/dL (75-99)
[2019-12-28] MEDS ORDERED: INSULIN ASPART (NovoLOG) 100 UNIT/ML VIAL SQ ONE (21:20)
[2019-12-28] MEDS: INSULIN ASPART (NovoLOG) 100 UNIT/ML VIAL SQ SCH (21:48)
[2019-12-28] MEDS: metFORMIN 500 MG TAB PO SCH (21:48)
[2019-12-29] MEDS: IPRATROPIUM-ALBUTEROL 3 ML NEB INHALATION SCH ×3 (03:02→11:34)
[2019-12-29 07:06] LABS: Glucose,Whole Blood 238 mg/dL (75-99)
[2019-12-29] MEDS ORDERED: FUROSEMIDE 40 MG TAB PO SCH (08:00)
[2019-12-29] MEDS: SYMBICORT 160-4.5 MCG INHALER INHALATION SCH (08:20)
[2019-12-29 08:44] VITALS: BP 115/70; RESP 18; TEMP 97.5
[2019-12-29] MEDS: METOPROLOL SUCCINATE (ER) 25 MG TAB.ER.24H PO SCH (09:00)
[2019-12-29] MEDS: guaiFENesin 600 MG TABLET.ER PO SCH (09:00)
[2019-12-29] MEDS: SPIRONOLACTONE 25 MG TAB PO SCH (09:00)
[2019-12-29] MEDS: LEVOTHYROXINE 112 MCG TAB PO SCH (09:00)
[2019-12-29] MEDS: metFORMIN 500 MG TAB PO SCH (09:01)
[2019-12-29] MEDS: INSULIN ASPART (NovoLOG) 100 UNIT/ML VIAL SQ SCH ×2 (09:02→12:34)
[2019-12-29] MEDS: SODIUM CHLORIDE 0.9% 1,000 ML IV SCH (09:02)
[2019-12-29] MEDS: methylPREDNISolone SOD SUCCI 40 MG/ML 1 ML VIAL IV SCH (09:02)
[2019-12-29 11:26] LABS: Glucose,Whole Blood 316 mg/dL (75-99)
[2019-12-29 11:36] VITALS: PULSE 80
--- NOTE | 2019-12-29 12:34 | P.CNPUL ---
History of Present Illness Consult date: 12/29/19 Reason for consult: dyspnea History of present illness: This is an 84-year-old male patient was well-known to me as the patient has chronic velamentous lung disease, latent TB and a chronic right-sided pleural effusion that was drained in the past and the fluid return agent airport to be transudate with a negative fluid cytology and microbiology addition to a negative fluid ADA analysis. This is an ongoing and recurrent right-sided pleural effusion. This is among various other comorbidities as stated including history of chronic atrial flutter for which the patient on no anticoagulants because of previous history of GI bleed, previous history of diabetes mellitus, hypertension, hypothyroidism, diverticulosis, osteoarthritis and acid reflux, history of present cancer treated with radiation therapy with subsequent The case of radiation proctitis. The patient has also had previous history of rectal bleeding related to prostatitis and he has not been a candidate for anticoagulation. The patient is coming in some worsening shortness of breath. He is currently feeling great. His pulse ox is 98% on room air oxygen. No significant cough sputum production chest that is so wheezing. I reviewed his chest x-ray and there is a chronic stable right-sided pleural effusion. He is currently on oral Lasix 40 mg by mouth daily. He is also on IV Solu-Medrol treating an acute COPD exacerbation. No fever. No chills. No night sweats. No calf pain or tenderness. [place] lives [place] a [place]. He is also moving around with the help of the scooter and he is quite limited in terms of his mobility. Noted the patient is also an alcohol drinker and he drinks approximately 3 drinks of whiskey on a daily basis. Review of Systems CONSTITUTIONAL: Denies fever. Denies chills. Chronic weight loss and medical debility. EYES: Denies blurred vision. Denies vision changes. Denies eye pain. EARS, NOSE, MOUTH & THROAT: Denies headache. Denies sore throat. Denies ear pain. CARDIOVASCULAR: Denies chest pain. Describes increased shortness of breath and cough and congestion.. Denies orthopnea. Denies PND. Denies palpitations. RESPIRATORY: Admits to have limited cough and dyspnea and chest congestion and wheeze. GASTROINTESTINAL: Denies abdominal pain. Denies diarrhea. Denies constipation. Denies nausea. Denies vomiting. MUSCULOSKELETAL: right shoulder and arm pain. Chronic weakness of the RLE and history of falls INTEGUMENTARY: Denies pruitis. Denies rash. NEUROLOGIC: Denies numbness. Denies tingling. RLE weakness. Increased risk of falls, and there is some memory difficulties and possibly dementia. PSYCHIATRIC: Denies anxiety. Denies depression. ENDOCRINE: Denies fatigue. Denies weight change. Denies polydipsia. Denies polyurina. GENITOURINARY: Denies burning, hematuria or urgency with micturation. HEMATOLOGIC: Denies history of anemia. Denies bleeding. Past Medical History Past Medical History: Atrial Fibrillation, Cancer, COPD, Diabetes Mellitus, GERD/Reflux, Hypertension, Liver Disease, Neurologic Disorder, Osteoarthritis (OA), Pneumonia, Prostate Disorder, Thyroid Disorder Additional Past Medical History / Comment(s): latent TB, diabetic neuropathy, COPD, chronic atrial fibrillation, thyroid cancer with a previous thyroidectomy, hypothyroidism, skin cancers with removals, prostate cancer with radiation, lower GI bleed thought secondary to radiation proctitis, diverticular disease, chronic anemia, duodenal ulcer, ETOH, history of ETOH withdrawal/delirium tremors, Bilat leg weakness, history of falls, chronic lower extremity edema, arthritis thoracic spine. History of Any Multi-Drug Resistant Organisms: None Reported Past Surgical History: Bowel Resection Additional Past Surgical History / Comment(s): thyroidectomy, colonoscopy/polypectomy, skin cancer removed, bilateral cataracts, bowel resection-d/t diverticulits, sigmoidoscopy Past Anesthesia/Blood Transfusion Reactions: No Reported Reaction Additional Past Anesthesia/Blood Transfusion Reaction / Comment(s): has had blood transfusions-no reaction Past Psychological History: Anxiety, Depression Additional Psychological History / Comment(s): pt stated he lives at [facility],has motorized w/c and 2 -4 wheeled walkers. has home care but can't remember name of company.. 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 Smoking Status: Current every day smoker Past Alcohol Use History: Abuse, Daily Additional Past Alcohol Use History / Comment(s): started smoking in his mid 40's, 1ppd, pt stated he drinks 3 drinks per day, last drink was 2 days ago Past Drug Use History: None Reported - Past Family History Father Family Medical History: Asthma, CVA/TIA Additional Family Medical History / Comment(s): pacemaker, smoker Mother Family Medical History: Chest Pain / Angina Additional Family Medical History / Comment(s): smoker Medications and Allergies Home Medications Medication Instructions Recorded Confirmed Type metFORMIN HCL [Glucophage] 500 mg PO BID@799,199909/16/17 12/28/19 History Ferrous Gluconate 324 mg PO DAILY@79912/08/18 12/28/19 History Metoprolol Succinate [Toprol XL] 75 mg PO DAILY@79912/08/18 12/28/19 History Spironolactone 12.5 mg PO DAILY@79912/08/18 12/28/19 History Dulaglutide [Trulicity] 1.5 mg SQ SA@79906/15/19 12/28/19 History Furosemide [Lasix] 40 mg PO DAILY@79906/15/19 12/28/19 History Levothyroxine Sodium [Synthroid] 112 mcg PO DAILY@79906/15/19 12/28/19 History Budesonide-Formot 160-4.5 Mcg 2 puff INHALATION RT-BID@799,199909/26/19 12/28/19 History [Symbicort 160-4.5 Mcg Inhaler] Polyethylene Glycol 3350 [Miralax] 17 gm PO DAILY PRN 09/26/19 12/28/19 History Latanoprost/Pf [Latanoprost 0.005% 1 drop BOTH EYES HS 12/28/19 12/28/19 History Eye Drop] Cefuroxime [place]et[place] [Ceftin] 500 mg PO BID #14 tab 12/29/19 Rx Ipratropium-Albuterol Nebulize 3 ml INHALATION TID #90 ml 12/29/19 Rx [Duoneb 0.5 mg-3 mg/3 ml Soln] predniSONE 0 mg PO DIRECTED #10 tab 12/29/19 Rx Allergies Allergy/AdvReac Type Severity Reaction Status Date / Time aspirin Allergy Rash/Hives Verified 12/28/19 09:55 Physical Exam Vitals: Vital Signs Temp Pulse Pulse Resp BP Pulse Ox 12/29/19 11:47 80 12/29/19 11:34 80 12/29/19 08:35 82 12/29/19 08:20 80 12/29/19 07:00 97.5 F L 112 H 18 115/70 99 12/29/19 04:06 20 12/29/19 02:30 97.6 F 113 H 20 100/67 99 12/28/19 23:32 88 18 12/28/19 23:24 88 12/28/19 19:54 98.5 F 112 H 18 111/76 98 12/28/19 19:20 88 12/28/19 19:09 84 12/28/19 15:45 84 12/28/19 15:33 80 12/28/19 15:00 98.6 F 112 H 18 108/65 99 Intake and Output 12/28/19 12/29/19 12/29/19 22:59 06:59 14:59 Intake Total 100 Balance 100 Intake: Oral 100 Other: Voiding Method Urinal Urinal Diaper Diaper # Voids 2 3 GENERAL EXAM: Alert, 84-year-old white male, somewhat a poor historian and looks quite debilitated and cachectic for now HEAD: Normocephalic/atraumatic. EYES: Normal reaction of pupils, equal size. Conjunctiva pink, sclera white. NOSE: Clear with pink turbinates. THROAT: No erythema or exudates. NECK: No masses, no JVD, no thyroid enlargement, no adenopathy. CHEST: No chest wall deformity. Symmetrical expansion. LUNGS: Marked diminished breath on the right lung base compared to the left along with some dullness to percussion. CVS: Irregular rate and rhythm, normal S1 and S2, no gallops, no murmurs, no rubs ABDOMEN: Soft, nontender. No hepatosplenomegaly, normal bowel sounds, no guarding or rigidity. EXTREMITIES: No clubbing, no cyanosis, 2+ pulses and upper and lower extremities. There is minimal edema in lower extremities bilaterally. MUSCULOSKELETAL: Muscle strength and tone normal. No open wounds or sores or ulceration. SPINE: No scoliosis or deformity SKIN: No rashes CENTRAL NERVOUS SYSTEM: Alert and oriented -3. No focal deficits, tone is normal in all 4 extremities. PSYCHIATRIC: Alert and oriented -3. Irritable Results - Laboratory Findings CBC and BMP: 12/27/19 20:56 12/27/19 20:56 PT/INR, D-dimer PT 9.8 sec (9.0-12.0) 12/27/19 20:56 INR 0.9 (<1.2) 12/27/19 20:56 Abnormal lab findings: Abnormal Labs 06/11/1112/27/19 12/28/19 20:56 20:56 07:20 RBC 3.14 L Hgb 11.5 L Hct 34.0 L MCV 108.5 H MCH 36.5 H Lymphocytes # 0.4 L Macrocytosis Marked A Sodium 133 L BUN 26 H Glucose 135 H POC Glucose (mg/dL) 177 H Albumin 3.4 L Urine Protein Urine Blood Ur Leukocyte Esterase Urine RBC Urine WBC Urine WBC Clumps Urine Bacteria 12/28/19 12/28/19 12/28/19 08:30 11:45 17:03 RBC Hgb Hct MCV MCH Lymphocytes # Macrocytosis Sodium BUN Glucose POC Glucose (mg/dL) 186 H 182 H Albumin Urine Protein Trace H Urine Blood Small H Ur Leukocyte Esterase Large H Urine RBC 13 H Urine WBC >182 H Urine WBC Clumps Moderate H Urine Bacteria Occasional H 12/28/19 12/29/19 12/29/19 20:51 07:03 11:24 RBC Hgb Hct MCV MCH Lymphocytes # Macrocytosis Sodium BUN Glucose POC Glucose (mg/dL) 334 H 238 H 316 H Albumin Urine Protein Urine Blood Ur Leukocyte Esterase Urine RBC Urine WBC Urine WBC Clumps Urine Bacteria - Diagnostic Findings Chest x-ray: image reviewed Assessment and Plan Plan: 1 COPD exacerbation with secondary shortness of breath, improving. Currently on room air oxygen 2 Recurrent right-sided pleural effusion along with volume loss and previous thoracentesis is indicated a transudative pleural effusion with low LDH and protein. The fluid ADA was also negative and the fluid cytology and microbiology has also been negative. Previous CAT scan of the chest shows old granulomatous changes with calcifications in the lung, mediastinum and the spleen. Note that the patient has history of latent TB. The fluid findings are stable for now 3 chronic dyspnea 4 chronic atrial fibrillation not a candidate for anticoagulation due to previous GI bleed 5 History of thyroid cancer with thyroidectomy 6. Hypothyroidism 7. History of lower GI bleed secondary to radiation proctitis 8. Chronic anemia 9. 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 15 history of alcoholism 16 history of prostate cancer treated by radiation therapy, complicated by development of proctitis 17 UTI, possibly related the Gram stain negative, currently on IV Rocephin Plan Agree on the current treatment No need for thoracentesis Will follow
--- NOTE | 2019-12-29 20:39 | P.DS ---
Providers Date of admission: 12/28/19 01:44 Expected date of discharge: 12/29/19 Attending physician: Ramez Redman Consults: 12/28/19 12:22 Consult Physician Routine Consulting Provider: Ellis Esteban Consult Reason/Comments: pl effusion Do you want consulting provider notified?: Yes Primary care physician: Jesse Gee [facility] Course: Chief Complaint: Short of breath History of presenting complaint: This is a very pleasant 84-year-old patient of Dr. Gee. Chronic stable medical conditions include diabetes, GERD, hypertension, hypothyroid, divert iculosis, osteoarthritis, atrial fibrillation, chronic right-sided pleural effusion has had thoracentesis 2. Has some chronic loculation. Not a Candidate for anticoagulation because of lower GI bleeding. Also's had recurrent rectal bleeding because of radiation proctitis and anticoagulation. Has known radiation cystitis and does follow with Dr. Guzman. Does use a scooter at baseline. Lives at [facility]. Has been still smoking up to very recently. EMS was called out at patient became short of breath earlier today. Was, cough. Bringing up some sputum. Not sure about the color. Appetite is okay. Feels it tired and rundown. No fever no chills. EKG done by EMS showed sinus tachycardia. Admitted with acute COPD exacerbation and acute tracheobronchitis. Responded well to bronchodilator steroids. IV ceftriaxone. Patient's right pleural effusion is chronic. Has had thoracentesis before. Not for any further intervention as per Dr. Ortega. Today-patient feeling well. Back to his baseline. He would like to go back to his place.. Discussed with him.. Consultation: Dr. Ortega-pulmonary Physical examination: VITAL SIGNS: 97.5, 112, 18, 115/70, 99% on room air GENERAL: Laying in bed, comfortable EYES: Pupils equal. Conjunctiva pale HEENT: External appearance of nose and ears normal, oral cavity grossly normal. NECK: JVD not raised; masses not palpable. HEART: First and second heart sounds are normal; no edema. LUNGS: Respiratory rate increased, decreased breath sounds ABDOMEN: Soft, nontender, liver spleen not palpable, no masses palpable. PSYCH: AAO 3, answering questions. INVESTIGATIONS, reviewed in the clinical context: White count 7.8 hemoglobin 11.5 platelets 309 potassium 4.2 creatinine 1.18 UA positive for leukoesterase, WBC EKG tracing personally reviewed by roya baseline questionable junctional rhythm Chest x-ray film personally reviewed by me-significant right-sided pleural effusion, with questionable infiltrate Assessment: -Acute COPD exacerbation in a current smoker, POA -Acute tracheobronchitis, POA - chronic right-sided pleural effusion with thoracentesis 2 in the past likely transudate with some loculated pleural effusion -Chronic nicotine dependence patient cigarette smoker -Essential hypertension -Diabetes mellitus type 2 on oral hypoglycemic -Chronic gait dysfunction uses a wheelchair -Persistent atrial fibrillation not a candidate for any anticoagulation -Chronic thoracic spine osteoarthritis -Hypothyroidism -GERD -Moderate to severe mitral regurgitation nonrheumatic -Severe tricuspid regurgitation nonrheumatic -Severe secondary pulmonary hypertension secondary to COPD Disposition: Home Patient Condition at Discharge: Stable Plan - Discharge Summary Discharge Rx Participant: No New Discharge Prescriptions: New Cefuroxime Axetil [Ceftin] 500 mg PO BID #14 tab Ipratropium-Albuterol Nebulize [Duoneb 0.5 mg-3 mg/3 ml Soln] 3 ml INHALATION TID #90 ml predniSONE 0 mg PO DIRECTED #10 tab Continue metFORMIN HCL [Glucophage] 500 mg PO BID@0800,2000 Spironolactone 12.5 mg PO DAILY@0800 Metoprolol Succinate [Toprol XL] 75 mg PO DAILY@0800 Ferrous Gluconate 324 mg PO DAILY@0800 Levothyroxine Sodium [Synthroid] 112 mcg PO DAILY@0800 Furosemide [Lasix] 40 mg PO DAILY@0800 Dulaglutide [Trulicity] 1.5 mg SQ SA@0800 Polyethylene Glycol 3350 [Miralax] 17 gm PO DAILY PRN PRN Reason: Constipation Budesonide-Formot 160-4.5 Mcg [Symbicort 160-4.5 Mcg Inhaler] 2 puff INHALATION RT-BID@0800,1999 Latanoprost/Pf [Latanoprost 0.005% Eye Drop] 1 drop BOTH EYES HS Discontinued Umeclidinium [place]ague [Incruse Ellipta] 1 puff INHALATION RT-DAILY@0800 Ipratropium [place] [Atrovent Hfa] 2 puff INHALATION RT-QID Cetirizine HCl 10 mg PO DAILY@0800 Albuterol Inhaler [Ventolin Hfa Inhaler] 2 puff INHALATION RT-Q4H PRN PRN Reason: Shortness Of Breath Discharge Medication List metFORMIN HCL [Glucophage] 500 mg PO BID@09/16/17 [History] Ferrous Gluconate 324 mg PO DAILY@79912/08/18 [History] Metoprolol Succinate [Toprol XL] 75 mg PO DAILY@79912/08/18 [History] Spironolactone 12.5 mg PO DAILY@79912/08/18 [History] Dulaglutide [Trulicity] 1.5 mg SQ SA@79906/15/19 [History] Furosemide [Lasix] 40 mg PO DAILY@79906/15/19 [History] Levothyroxine Sodium [Synthroid] 112 mcg PO DAILY@79906/15/19 [History] Budesonide-Formot 160-4.5 Mcg [Symbicort 160-4.5 Mcg Inhaler] 2 puff INHALATION RT-BID@799,199909/26/19 [History] Polyethylene Glycol 3350 [Miralax] 17 gm PO DAILY PRN 09/26/19 [History] Latanoprost/Pf [Latanoprost 0.005% Eye Drop] 1 drop BOTH EYES HS 12/28/19 [History] Cefuroxime Axetil [Ceftin] 500 mg PO BID #14 tab 12/29/19 [Rx] Ipratropium-Albuterol Nebulize [Duoneb 0.5 mg-3 mg/3 ml Soln] 3 ml INHALATION TID #90 ml 12/29/19 [Rx] predniSONE 0 mg PO DIRECTED #10 tab 12/29/19 [Rx] Follow up Appointment(s)/Referral(s): Ellis Esteban MD [STAFF PHYSICIAN] - 1 Week Jesse Gee MD [Primary Care Provider] - 1-2 days Patient Instructions/Handouts: Urinary Tract Infection in Men (DC) Activity/Diet/Wound Care/Special Instructions: [facility] Discharge Disposition: HOME SELF-CARE
[2019-12-29] MEDS ORDERED: INSULIN ASPART (NovoLOG) 100 UNIT/ML VIAL SQ SCH (21:30)
== END 2019-12-29 13:34 | disposition home or self-care (01) ==
LOC: EC 20:36 → 4SSUR 12-28 01:44
PROVIDERS: ADMIT Hospitalist; ATTEND Hospitalist
DX: J20.9 Acute bronchitis, unspecified (principal); J44.0 Chronic obstructive pulmonary disease with (acute) lower respiratory infection; J44.1 Chronic obstructive pulmonary disease with (acute) exacerbation; J90 Pleural effusion, not elsewhere classified; F17.210 Nicotine dependence, cigarettes, uncomplicated; I10 Essential (primary) hypertension; E11.40 Type 2 diabetes mellitus with diabetic neuropathy, unspecified; R26.9 Unspecified abnormalities of gait and mobility; I48.19 Other persistent atrial fibrillation; M47.894 Other spondylosis, thoracic region; E89.0 Postprocedural hypothyroidism; K21.9 Gastro-esophageal reflux disease without esophagitis; I08.1 Rheumatic disorders of both mitral and tricuspid valves; I27.23 Pulmonary hypertension due to lung diseases and hypoxia; K76.9 Liver disease, unspecified; R91.8 Other nonspecific abnormal finding of lung field; D64.89 Other specified anemias; F41.9 Anxiety disorder, unspecified; F32.9 Major depressive disorder, single episode, unspecified; N30.40 Irradiation cystitis without hematuria; Z03.818 Encounter for observation for suspected exposure to other biological agents ruled out; Z79.899 Other long term (current) drug therapy; Z79.84 Long term (current) use of oral hypoglycemic drugs; Z79.890 Hormone replacement therapy; Z79.51 Long term (current) use of inhaled steroids; Z88.6 Allergy status to analgesic agent; Z85.850 Personal history of malignant neoplasm of thyroid; Z86.69 Personal history of other diseases of the nervous system and sense organs; Z87.01 Personal history of pneumonia (recurrent); Z85.46 Personal history of malignant neoplasm of prostate; Z92.3 Personal history of irradiation; Z86.15 Personal history of latent tuberculosis infection; Z85.828 Personal history of other malignant neoplasm of skin; Z87.19 Personal history of other diseases of the digestive system; Z87.11 Personal history of peptic ulcer disease; Z91.81 History of falling; Z90.49 Acquired absence of other specified parts of digestive tract; Z98.890 Other specified postprocedural states; Z98.41 Cataract extraction status, right eye; Z98.42 Cataract extraction status, left eye; Z82.5 Family history of asthma and other chronic lower respiratory diseases; Z82.3 Family history of stroke; Z81.2 Family history of tobacco abuse and dependence; Z82.49 Family history of ischemic heart disease and other diseases of the circulatory system
CPT/HCPCS: 96376 ×2; 96361 ×3; 96365 ×2; 96366; 96375; 96367; 99285; 36415; 94640 ×4; 93005; 80053; 83605; 84484; 85025; 85610; 85730; 81001; 87040; 87070; 87086; 87205; 71046; G0378 ×2; U0003; J2920 ×2; J0456; J0696 ×2

== ENCOUNTER 2020-01-03 17:27 | Inpatient (IN) | payer MEDICARE, OTHER ==
[2020-01-03] MEDS ORDERED: SODIUM CHLORIDE 0.9% 1,000 ML IV STA (17:54)
--- NOTE | 2020-01-03 18:12 | ED ---
Fall HPI - General Chief Complaint: Fall Stated Complaint: fall, knee pain Time Seen by Provider: 01/03/20 17:31 Source: patient, EMS Mode of arrival: EMS - History of Present Illness Initial Comments: Patient is an 84-year-old male with a complex medical history presenting to the emergency department with a chief complaint of right knee pain. Patient states he currently lives in an assisted-living facility. Patient states she was attempting to transfer from his easy chair to his scooter. States he lost his balance as he was attempting to grab this during handle. States she fell and injured his right knee. Denies any head trauma. Denies any loss of consciousness. States he is not on any blood thinners. States she is not able to fully extend the right knee. States the incident occurred 2 hours prior to arrival. Patient brought to the ED via EMS. Facility staff contacted the EMS. Denies chest pain shortness of breath. - Related Data Home Medications Medication Instructions Recorded Confirmed metFORMIN HCL [Glucophage] 500 mg PO BID@09/16/17 12/28/19 Ferrous Gluconate 324 mg PO DAILY@79912/08/18 12/28/19 Metoprolol Succinate [Toprol XL] 75 mg PO DAILY@79912/08/18 12/28/19 Spironolactone 12.5 mg PO DAILY@79912/08/18 12/28/19 Dulaglutide [Trulicity] 1.5 mg SQ SA@79906/15/19 12/28/19 Furosemide [Lasix] 40 mg PO DAILY@79906/15/19 12/28/19 Levothyroxine Sodium [Synthroid] 112 mcg PO DAILY@79906/15/19 12/28/19 Budesonide-Formot 160-4.5 Mcg 2 puff INHALATION RT-BID@09/26/19 12/28/19 [Symbicort 160-4.5 Mcg Inhaler] Polyethylene Glycol 3350 [Miralax] 17 gm PO DAILY PRN 09/26/19 12/28/19 Latanoprost/Pf [Latanoprost 0.005% 1 drop BOTH EYES HS 12/28/19 12/28/19 Eye Drop] Previous Rx's Medication Instructions Recorded Cefuroxime Axetil [Ceftin] 500 mg PO BID #14 tab 12/29/19 Ipratropium-Albuterol Nebulize 3 ml INHALATION TID #90 ml 12/29/19 [Duoneb 0.5 mg-3 mg/3 ml Soln] predniSONE 0 mg PO DIRECTED #10 tab 12/29/19 Allergies Allergy/AdvReac Type Severity Reaction Status Date / Time aspirin Allergy Rash/Hives Verified 01/03/20 17:33 Review of Systems ROS Statement: Those systems with pertinent positive or pertinent negative responses have been documented in the HPI. ROS Other: All systems not noted in ROS Statement are negative. Past Medical History Past Medical History: Atrial Fibrillation, Cancer, COPD, Diabetes Mellitus, GERD/Reflux, Hypertension, Liver Disease, Neurologic Disorder, Osteoarthritis (OA), Pneumonia, Prostate Disorder, Thyroid Disorder Additional Past Medical History / Comment(s): latent TB, diabetic neuropathy, COPD, chronic atrial fibrillation, thyroid cancer with a previous thyroidectomy, hypothyroidism, skin cancers with removals, prostate cancer with radiation, lower GI bleed thought secondary to radiation proctitis, diverticular disease, chronic anemia, duodenal ulcer, ETOH, history of ETOH withdrawal/delirium tremors, Bilat leg weakness, history of falls, chronic lower extremity edema, arthritis thoracic spine. History of Any Multi-Drug Resistant Organisms: None Reported Past Surgical History: Bowel Resection Additional Past Surgical History / Comment(s): thyroidectomy, colonoscopy/polypectomy, skin cancer removed, bilateral cataracts, bowel resection-d/t diverticulits, sigmoidoscopy Past Anesthesia/Blood Transfusion Reactions: No Reported Reaction Additional Past Anesthesia/Blood Transfusion Reaction / Comment(s): has had blood transfusions-no reaction Past Psychological History: Anxiety, Depression Smoking Status: Current every day smoker Past Alcohol Use History: Abuse, Daily Past Drug Use History: None Reported - Past Family History Father Family Medical History: Asthma, CVA/TIA Additional Family Medical History / Comment(s): pacemaker, smoker Mother Family Medical History: Chest Pain / Angina Additional Family Medical History / Comment(s): smoker General Exam Limitations: no limitations General appearance: alert, in no apparent distress Head exam: Present: atraumatic, normocephalic, normal inspection Eye exam: Present: normal appearance, PERRL, EOMI, scleral icterus (mild) Pupils: Present: normal accommodation ENT exam: Present: normal exam, normal oropharynx, mucous membranes moist Neck exam: Present: normal inspection, full ROM Respiratory exam: Present: normal lung sounds bilaterally. Absent: wheezes (Mild wheezing bilaterally) Cardiovascular Exam: Present: regular rate, normal rhythm, normal heart sounds GI/Abdominal exam: Present: soft. Absent: distended, tenderness Extremities exam: Present: tenderness (Tenderness along the medial aspect of the right knee.), normal capillary refill, pedal edema (+1 bilateral lower extremity edema), other (+2 dorsalis pedis and posterior tibialis bilaterally.). Absent: normal inspection (Swelling noted on the right knee.), full ROM (Limited range of motion with extension.) Back exam: Present: normal inspection, full ROM Neurological exam: Present: alert, oriented X3 Psychiatric exam: Present: normal affect, normal mood Skin exam: Present: warm, dry, intact, normal color Course Vital Signs 01/03/20 01/03/20 01/03/20 17:28 18:46 19:27 Temperature 97.7 F Pulse Rate 128 H 126 H 114 H Respiratory 18 18 15 Rate Blood Pressure 90/70 98/81 110/81 O2 Sat by Pulse 97 98 97 Oximetry Medical Decision Making - Medical Decision Making Patient is a 4-year-old male presenting to emergency Department with chief complaint of a fall. On exam patient is not able to fully extend his right knee. X-ray of the right knee is unremarkable. No head trauma. Patient was offered head CT, he declined. CBC reveals mild anemia. A. fib with RVR on EKG. Patient will be admitted for further medical management. ortho consult. - Lab Data Result diagrams: 01/03/20 18:10 01/03/20 18:10 Lab Results 01/03/20 01/03/20 01/03/20 Range/Units 18:10 18:10 18:10 WBC 6.1 (3.8-10.6) k/uL RBC 3.12 L (4.30-5.90) m/uL Hgb 11.0 L (13.0-17.5) gm/dL Hct 35.2 L (39.0-53.0) % MCV 112.8 H (80.0-100.0) fL MCH 35.1 H (25.0-35.0) pg MCHC 31.1 (31.0-37.0) g/dL RDW 14.6 (11.5-15.5) % Plt Count 323 (150-450) k/uL Neutrophils % 88 % Lymphocytes % 6 % Monocytes % 4 % Eosinophils % 1 % Basophils % 0 % Neutrophils # 5.4 (1.3-7.7) k/uL Lymphocytes # 0.3 L (1.0-4.8) k/uL Monocytes # 0.3 (0-1.0) k/uL Eosinophils # 0.1 (0-0.7) k/uL Basophils # 0.0 (0-0.2) k/uL Macrocytosis Marked A PT 10.2 (9.0-12.0) sec INR 1.0 (<1.2) APTT 24.2 (22.0-30.0) sec Sodium 137 (137-145) mmol/L Potassium 4.8 (3.5-5.1) mmol/L Chloride 107 (98-107) mmol/L Carbon Dioxide 17 L (22-30) mmol/L Anion Gap 13 mmol/L BUN 31 H (9-20) mg/dL Creatinine 1.27 H (0.66-1.25) mg/dL Est GFR (CKD-EPI)AfAm 60 (>60 ml/min/1.73 sqM) Est GFR (CKD-EPI)NonAf 52 (>60 ml/min/1.73 sqM) Glucose 224 H (74-99) mg/dL Calcium 9.0 (8.4-10.2) mg/dL Total Bilirubin 0.5 (0.2-1.3) mg/dL AST 34 (17-59) U/L ALT 17 (4-49) U/L Alkaline Phosphatase 88 (38-126) U/L Total Protein 7.4 (6.3-8.2) g/dL Albumin 4.0 (3.5-5.0) g/dL - EKG Data EKG Comments: A. fib with rvr Ventricular rate 117, QRS 90, QTC 499 Disposition Clinical Impression: Atrial fibrillation with RVR, Right knee injury, Moderate sized pleural effusion, Fall Disposition: ADMITTED IP TO THIS [facility] Condition: Good Instructions (If sedation given, give patient instructions): Fall Prevention (ED) Additional Instructions: Patient will be admitted Is patient prescribed a controlled substance at d/c from ED?: No Referrals: Jesse Gee MD [Primary Care Provider] - 1-2 days Time of Disposition: 20:20
[2020-01-03 18:29] LABS: Basophils % (A) 0 %; Eosinophils # (A) 0.1 k/uL (0-0.7); Eosinophils % (A) 1 %; HCT 35.2 % (39.0-53.0); Lymphocytes # (A) 0.3 k/uL (1.0-4.8); Lymphocytes % (A) 6 %; MCH 35.1 pg (25.0-35.0); MCHC 31.1 g/dL (31.0-37.0); MCV 112.8 fL (80.0-100.0); Macrocytosis Marked; Mean Platelet Volume 8.3; Monocytes # (A) 0.3 k/uL (0-1.0); Monocytes % (A) 4 %; Neutrophils # (A) 5.4 k/uL (1.3-7.7); Neutrophils % (A) 88 %; Platelet Count 323 k/uL (150-450); RBC 3.12 m/uL (4.30-5.90); RDW 14.6 % (11.5-15.5); WBC 6.1 k/uL (3.8-10.6)
[2020-01-03 18:33] LABS: Potassium 4.8 mmol/L (3.5-5.1); Total Bilirubin 0.5 mg/dL (0.2-1.3); Total Protein 7.4 g/dL (6.3-8.2)
[2020-01-03 18:42] LABS: Partial Thromboplastin Time 24.2 sec (22.0-30.0); Prothrombin Time 10.2 sec (9.0-12.0)
--- NOTE | 2020-01-03 18:49 | XR ---
PROCEDURE: XR knee limited RT - 3V DATE AND TIME: 01/03/2020 6:40 PM CLINICAL INDICATION: PHH; Right knee pain, fall TECHNIQUE: Department protocol COMPARISON: 08/14/2017 FINDINGS: There is marked osteoporosis. In this setting is difficult to exclude nondisplaced fracture . However, there is no evidence of displaced fracture and no malalignment. The soft tissues are unrem arkable for acute findings, although prominent atherosclerotic calcifications are noted. IMPRESSION: No definite acute radiographic process.
[2020-01-03] MEDS ORDERED: MORPHINE SULFATE 2 MG/ML SYRINGE IVP STA (19:06)
--- NOTE | 2020-01-03 19:38 | XR ---
EXAMINATION: XR chest 2V DATE AND TIME: 01/03/2020 7:22 PM CLINICAL INDICATION: PHH; afib with rvr TECHNIQUE: Departmental protocol COMPARISON: 12/27/2019 FINDINGS: The previously seen complex right pleural effusion is redemonstrated, mildly increased. Ass ociated passive atelectasis of the right lower lobe and right middle lobe is redemonstrated. The left lung is clear and well expanded, and the left pleural space is negative. There is no pneumothorax. There is no left pleural effusion. The cardiac silhouette is mildly enlarged, unchanged. The skeletal structures and soft tissues are negative for acute findings. IMPRESSION: Moderate right pleural effusion, mildly increased since the prior study, with passive ate lectasis redemonstrated.
[2020-01-03] MEDS ORDERED: METOPROLOL TARTRATE 25 MG TAB PO STA (20:22)
[2020-01-03] MEDS ORDERED: NALOXONE 0.4 MG/ML 1 ML VIAL IV PRN (20:23)
[2020-01-03] MEDS: SODIUM CHLORIDE 0.9% 1,000 ML IV SCH (20:57)
[2020-01-03] MEDS ORDERED: POLYETHYLENE GLYCOL 3350 17 GM POWD.PACK PO PRN (21:21)
[2020-01-03] MEDS ORDERED: MELATONIN 3 MG TABLET PO PRN (21:22)
[2020-01-03] MEDS ORDERED: ONDANSETRON 4 MG/2 ML VIAL IVP PRN (21:22)
[2020-01-03] MEDS ORDERED: LACTULOSE 20 GM/30 ML CUP PO PRN (21:22)
[2020-01-03] MEDS ORDERED: MAGNESIUM HYDROXIDE 2,400 MG/10 ML CUP PO PRN (21:22)
[2020-01-03] MEDS ORDERED: MAG HYDROX/AL HYDROX/SIMETH 30 ML CUP PO PRN (21:22)
[2020-01-03] MEDS ORDERED: CALCIUM CARBONATE 500 MG CHEWABLE PO PRN (21:22)
[2020-01-03] MEDS: LATANOPROST 0.005% OPHTH DROPS 2.5 ML BTL BOTH EYES SCH (23:23)
[2020-01-04] MEDS: MORPHINE SULFATE 4 MG/ML SYRINGE IV PRN ×2 (00:58→20:35)
[2020-01-04 06:38] LABS: Glucose,Whole Blood 177 mg/dL (75-99)
[2020-01-04] MEDS: INSULIN ASPART (NovoLOG) 100 UNIT/ML VIAL SQ SCH ×4 (06:45→20:34)
[2020-01-04] MEDS: IPRATROPIUM-ALBUTEROL 3 ML NEB INHALATION SCH ×3 (07:42→19:12)
[2020-01-04] MEDS: SYMBICORT 160-4.5 MCG INHALER INHALATION SCH ×2 (08:40→19:12)
[2020-01-04] MEDS: metFORMIN 500 MG TAB PO SCH ×2 (09:32→20:34)
[2020-01-04] MEDS: METOPROLOL SUCCINATE (ER) 25 MG TAB.ER.24H PO SCH (09:32)
[2020-01-04] MEDS: SODIUM CHLORIDE 0.9% 1,000 ML IV SCH (09:33)
[2020-01-04] MEDS: CEFDINIR 300 MG CAP PO SCH ×2 (09:33→20:34)
[2020-01-04] MEDS: FUROSEMIDE 40 MG TAB PO SCH (09:33)
[2020-01-04] MEDS: SPIRONOLACTONE 25 MG TAB PO SCH (09:33)
[2020-01-04] MEDS: LEVOTHYROXINE 112 MCG TAB PO SCH (09:33)
[2020-01-04] MEDS: HYDROmorphone 0.5 MG/0.5 ML SYRINGE IVP PRN (09:41)
[2020-01-04 11:29] LABS: Glucose,Whole Blood 150 mg/dL (75-99)
--- NOTE | 2020-01-04 11:58 | P.CNOR ---
History of Present Illness - [facility] Consult date: 01/04/20 Consult reason: joint pain History of present illness: Patient is an 85-year-old male who was admitted to [facility] yesterday evening after sustaining an injury to his right knee. Beto hernandes was also noted to be in A. fib with aVR and possible pleural effusion. Apparently the patient lives in an assisted-living home, he was transferring from his scooter to his chair when his right knee gave out and he fell. His significant pain in the right knee and was unable to weight-bear. Upon arrival to the hospital, imaging and lab tests were done. Images of the right knee demonstrated no acute fractures or dislocations. Obvious osteoporotic changes along with arthritic changes. Patient denies any previous surgery involving the right knee or hip. He has no other orthopedic complaints this time. Currently he denies any chest pain, shortness of breath, fever or chills, nausea or vomiting. Review of Systems Constitutional: Reports as per [facility] Past Medical History Past Medical History: Atrial Fibrillation, Cancer, COPD, Diabetes Mellitus, GERD/Reflux, Hypertension, Liver Disease, Neurologic Disorder, Osteoarthritis (OA), Pneumonia, Prostate Disorder, Thyroid Disorder Additional Past Medical History / Comment(s): latent TB, diabetic neuropathy, COPD, chronic atrial fibrillation, thyroid cancer with a previous thyroidectomy, hypothyroidism, skin cancers with removals, prostate cancer with radiation, lower GI bleed thought secondary to radiation proctitis, diverticular disease, chronic anemia, duodenal ulcer, ETOH, history of ETOH withdrawal/delirium tremors, Bilat leg weakness, history of falls, chronic lower extremity edema, arthritis thoracic spine. History of Any Multi-Drug Resistant Organisms: None Reported Past Surgical History: Bowel Resection Additional Past Surgical History / Comment(s): thyroidectomy, colonoscopy/polypectomy, skin cancer removed, bilateral cataracts, bowel res ection-d/t diverticulits, sigmoidoscopy Past Anesthesia/Blood Transfusion Reactions: No Reported Reaction Additional Past Anesthesia/Blood Transfusion Reaction / Comm: has had blood transfusions-no reaction Past Psychological History: Anxiety, Depression Additional Psychological History / Comment(s): pt stated he lives at [facility],has motorized w/c and 2 -4 wheeled walkers. has home care but can't remember name of company.. 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 Smoking Status: Current some day smoker Past Alcohol Use History: Abuse, Daily Additional Past Alcohol Use History / Comment(s): started smoking in his mid 40's, 1ppd, pt stated he drinks 3 drinks per day, last drink was 2 days ago Past Drug Use History: None Reported - Past Family History Father Family Medical History: Asthma, CVA/TIA Additional Family Medical History / Comment(s): pacemaker, smoker Mother Family Medical History: Chest Pain / Angina Additional Family Medical History / Comment(s): smoker Medications and Allergies Home Medications Medication Instructions Recorded Confirmed Type metFORMIN HCL [Glucophage] 500 mg PO BID@08,199909/16/17 01/03/20 History Ferrous Gluconate 324 mg PO DAILY@79912/08/18 01/03/20 History Metoprolol Succinate [Toprol XL] 75 mg PO DAILY@79912/08/18 01/03/20 History Spironolactone 12.5 mg PO DAILY@79912/08/18 01/03/20 History Dulaglutide [Trulicity] 1.5 mg SQ SA@79906/15/19 01/03/20 History Furosemide [Lasix] 40 mg PO DAILY@79906/15/19 01/03/20 History Levothyroxine Sodium [Synthroid] 112 mcg PO DAILY@79906/15/19 01/03/20 History Budesonide-Formot 160-4.5 Mcg 2 puff INHALATION RT-BID@799,199909/26/19 01/03/20 History [Symbicort 160-4.5 Mcg Inhaler] Polyethylene Glycol 3350 [Miralax] 17 gm PO DAILY PRN 09/26/19 01/03/20 History Latanoprost/Pf [Latanoprost 0.005% 1 drop BOTH EYES HS 12/28/19 01/03/20 History Eye Drop] Cefuroxime Axetil [Ceftin] 500 mg PO BID #14 tab 12/29/19 01/03/20 Rx Ipratropium-Albuterol Nebulize 3 ml INHALATION RT-TID 01/03/20 01/03/20 History [Duoneb 0.5 mg-3 mg/3 ml Soln] Allergies Allergy/AdvReac Type Severity Reaction Status Date / Time aspirin Allergy Rash/Hives Verified 01/03/20 21:30 Physical Examination Right lower extremity: This note obvious open lesions or sores present on the extremity. There is multiple bruises throughout the lower extremity, the patient's skin is very thin. Mild effusion around the knee. Patient is tender with palpation mainly along the medial joint line. He does have difficult time fully extending the knee due to pain. Passively I'm able to flex past 90 and extend with about 10 of full extension lacking. There is no tenderness with palpation in the proximal femur along with the distal tibia and fibula. Foot and ankle exam is unremarkable. Sensory exam to light touch at the extremity is intact. His dorsalis pedis pulses 2+. The calf is soft, there is no tenderness with palpation. Results - Labs Labs: Abnormal Lab Results - Last 24 Hours (Table) 01/03/20 01/03/20 01/04/20 Range/Units 18:10 18:10 06:36 RBC 3.12 L (4.30-5.90) m/uL Hgb 11.0 L (13.0-17.5) gm/dL Hct 35.2 L (39.0-53.0) % MCV 112.8 H (80.0-100.0) fL MCH 35.1 H (25.0-35.0) pg Lymphocytes # 0.3 L (1.0-4.8) k/uL Macrocytosis Marked A Carbon Dioxide 17 L (22-30) mmol/L BUN 31 H (9-20) mg/dL Creatinine 1.27 H (0.66-1.25) mg/dL Glucose 224 H (74-99) mg/dL POC Glucose (mg/dL) 177 H (75-99) mg/dL 01/04/20 Range/Units 11:20 RBC (4.30-5.90) m/uL Hgb (13.0-17.5) gm/dL Hct (39.0-53.0) % MCV (80.0-100.0) fL MCH (25.0-35.0) pg Lymphocytes # (1.0-4.8) k/uL Macrocytosis Carbon Dioxide (22-30) mmol/L BUN (9-20) mg/dL Creatinine (0.66-1.25) mg/dL Glucose (74-99) mg/dL POC Glucose (mg/dL) 150 H (75-99) mg/dL H & H 01/03/20 Range/Units 18:10 Hgb 11.0 L (13.0-17.5) gm/dL Hct 35.2 L (39.0-53.0) % Coagulation 01/03/20 Range/Units 18:10 INR 1.0 (<1.2) Result Diagrams: 01/03/20 18:10 01/03/20 18:10 - Diagnostic results Knee x-ray: report reviewed, image reviewed (Images of the knee were reviewed. They demonstrate no acute fractures or dislocations. Obvious osteoporotic changes are noted along with joint space narrowing and osteophyte formation.) Assessment and Plan Assessment: Right knee pain Right knee effusion Right knee osteoarthritis with acute exacerbation Multiple medical comorbidities Plan: I was able to discuss the case, including the physical exam findings and imaging studies my attending Dr. Merida. Nor orthopedic surgical intervention rec ommended at this time I did discuss with the patient possibility of a intra-articular steroid injec tion and aspiration to help with his symptoms. Patient is in a grandson would like to proceed. Please see procedure note for further detail. Recommend ambulation with walker Physical therapy evaluation Other medical specialty recommendations
--- NOTE | 2020-01-04 14:51 | P.PCN ---
Date of Procedure: 01/04/20 Preoperative Diagnosis: Right knee pain, right knee effusion Postoperative Diagnosis: Right knee pain, right knee hemarthrosis Procedure(s) Performed: Right knee aspiration with intra-articular cortisone injection Anesthesia: regional Surgeon: Brice Le Estimated Blood Loss (ml): 0 Pathology: none sent Condition: stable Disposition: no change Indications for Procedure: Right knee pain, right knee effusion Description of Procedure: Risk and benefits of a aspiration with intra-articular cortisone injection were discussed with the patient at bedside, he is in agreement like to proceed. Patient was in the supine position, the knee was prepped with 1 ChloraPrep swab and one alcohol swabs. A 20-gauge needle was used to first inject 3 mL of 1% plain lidocaine be of the suprapatellar approach. I was unable to aspirate about 15 mL of blood from the right knee. After adequate aspiration, I did switch syringes and placed 1 mL of 1% plain lidocaine and 40 mg of Depo-Medrol into the knee. His bandages and applied. After reassessment of the knee, he continues to do demonstrate severe pain along the medial joint line and medial tibia with palpation. Range of motion he also is very painful.due to physical exam findings and the findings on the aspiration, a computed tomography scan of the right knee will be ordered for further evaluation.
--- NOTE | 2020-01-04 15:32 | XR ---
EXAMINATION TYPE: XR knee complete RT DATE OF EXAM: 01/04/2020 COMPARISON: 01/03/2020 HISTORY: 85-year-old male hemarthrosis, knee pain TECHNIQUE: 3 views FINDINGS: Marked disuse osteopenia. Marked muscle atrophy. Vascular calcifications are present. Anterior soft tissue swelling. A small knee joint effusion may be present. No sizable hemarthrosis or lipohemarthrosis seen. No acute fracture, subluxation, or dislocation seen. IMPRESSION: Anterior soft tissue swelling, marked osteopenia, muscle atrophy, and small joint effusion. Correlate as to etiology. No sizable hemarthrosis or lipohemarthrosis. MRI is persistent concern for hemarthro sis or occult injury.
[2020-01-04 16:31] LABS: Glucose,Whole Blood 136 mg/dL (75-99)
--- NOTE | 2020-01-04 16:37 | P.HPIM ---
History of Present Illness H&P Date: 01/04/20 Chief Complaint: Right knee pain History of presenting complaint: This is a very pleasant 85-year-old patient of Dr. Gee. Chronic stable medical conditions include diabetes, GERD, hypertension, hypothyroid, diverticulosis, osteoarthritis, atrial fibrillation, chronic right-sided pleural effusion has had thoracentesis 2. Has some chronic loculation. Not a Candidate for anticoagulation because of lower GI bleeding. Also's had recurrent rectal bleeding because of radiation proctitis and anticoagulation. Has known radiation cystitis and does follow with Dr. Guzman. Does use a scooter at baseline. Lives at [facility]. Has been still smoking up to very rece ntly. Patient was just in the hospital from December 27 through December 28 with a diagnosis of acute COPD exacerbation and tracheobronchitis. Patient normally uses a wheelchair. He was trying to transfer himself from his easy chair to the wheelchair. Lost his balance and fell down. Injuring his knee. Unable to get up. EMS was called out. Patient is having significant pain in the right knee not able to bend it. Admitted for the same. No fever no chills. Localized pain in the right knee. Review of systems: GEN.: Tired EYES: None HEENT: Decreased hearing NECK: None RESPIRATORY: Baseline some shortness of breath CARDIOVASCULAR: None GASTROINTESTINAL: None GENITOURINARY: None MUSCULOSKELETAL: Pain in the joints, especially right knee LYMPHATICS: None HEMATOLOGICAL: None PSYCHIATRY: Forgetful NEUROLOGICAL: uses a scooter Past medical history to include: Diabetes, GERD, hypertension, hypothyroid, diverticulosis, osteoarthritis, atrial fibrillation not a candidate for anticoagulation, radiation proctitis with recurrent rectal bleeding from argan plasma coagulation, radiation cystitis , chronic right pleural effusion with thoracentesis 2 and loculated effusions Social history: smoking for many years. Lives at [facility]. Drinks 2 short of whiskey a day.. Has home health. Does use a scooter or wheelchair. Physical examination: VITAL SIGNS: 97.7, 114, 15, 110/81, 97% room air GENERAL: Sitting up in bed, awake EYES: Pupils equal. Conjunctiva pale HEENT: External appearance of nose and ears normal, oral cavity grossly normal. NECK: JVD not raised; masses not palpable. HEART: First and second heart sounds are normal; no edema. LUNGS: Respiratory rate increased, decreased breath sounds extremity wheezing ABDOMEN: Soft, nontender, liver spleen not palpable, no masses palpable. PSYCH: AAO 3, answering questions. MUSCULOSKELETAL: Tenderness around the right knee with mild swelling. Not able to bend the knee. NEUROLOGICAL: Cranial nerves grossly intact; no facial asymmetry, power and sensation grossly intact. LYMPHATICS: No lymph nodes palpable in the axilla and neck INVESTIGATIONS, reviewed in the clinical context: White count 6.1 hemoglobin 11 platelets 08/27/2022 potassium 4.8 bun 31 creatinine 1.27 X-ray of the knee personally reviewed by me shows-osteopenia, evidence of OA, no obvious fracture. Report also reviewed. EKG tracing personally reviewed by me-atrial fibrillation with rate to 1 teens Chest x-ray film personally reviewed by me-chronic right pleural effusion with atelectasis Assessment: -This is a patient who fell on his right knee unable to get up. Unable to bend the knee. Localized pain with some swelling. Patient has underlying osteoarthritis osteopenia and this possible he could have a miniscule tear. May be secondary joint effusion. -COPD exacerbation in a current smoker - chronic right-sided pleural effusion with thoracentesis 2 in the past likely transudate with some loculated pleural effusion -Chronic nicotine dependence patient cigarette smoker -Essential hypertension -Diabetes mellitus type 2 on oral hypoglycemic -Chronic gait dysfunction uses a wheelchair -Persistent atrial fibrillation not a candidate for any anticoagulation -Chronic thoracic spine osteoarthritis -Hypothyroidism -GERD -Moderate to severe mitral regurgitation nonrheumatic -Severe tricuspid regurgitation nonrheumatic -Severe secondary pulmonary hypertension secondary to COPD Plan: Orthopedics Dr. Starks was consulted. The plan is for a steroid injection. We'll give patient topical Voltaren gel. PTOT to see the patient. Because of pain. Not really able to participate in any therapy-because of pain. Other medications be resumed. Follow with orthopedics... Past Medical History Past Medical History: Atrial Fibrillation, Cancer, COPD, Diabetes Mellitus, GERD/Reflux, Hypertension, Liver Disease, Neurologic Disorder, Osteoarthritis (OA), Pneumonia, Prostate Disorder, Thyroid Disorder Additional Past Medical History / Comment(s): latent TB, diabetic neuropathy, COPD, chronic atrial fibrillation, thyroid cancer with a previous thyroidectomy, hypothyroidism, skin cancers with removals, prostate cancer with radiation, lower GI bleed thought secondary to radiation proctitis, diverticular disease, chronic anemia, duodenal ulcer, ETOH, history of ETOH withdrawal/delirium tremors, Bilat leg weakness, history of falls, chronic lower extremity edema, arthritis thoracic spine. History of Any Multi-Drug Resistant Organisms: None Reported Past Surgical History: Bowel Resection Additional Past Surgical History / Comment(s): thyroidectomy, colonoscopy/polypectomy, skin cancer removed, bilateral cataracts, bowel resection-d/t diverticulits, sigmoidoscopy Past Anesthesia/Blood Transfusion Reactions: No Reported Reaction Additional Past Anesthesia/Blood Transfusion Reaction / Comment(s): has had blood transfusions-no reaction Past Psychological History: Anxiety, Depression Additional Psychological History / Comment(s): pt stated he lives at [facility],has motorized w/c and 2 -4 wheeled walkers. has home care but can't remember name of company.. 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 Smoking Status: Current some day smoker Past Alcohol Use History: Abuse, Daily Additional Past Alcohol Use History / Comment(s): started smoking in his mid 40's, 1ppd, pt stated he drinks 3 drinks per day, last drink was 2 days ago Past Drug Use History: None Reported - Past Family History Father Family Medical History: Asthma, CVA/TIA Additional Family Medical History / Comment(s): pacemaker, smoker Mother Family Medical History: Chest Pain / Angina Additional Family Medical History / Comment(s): smoker Medications and Allergies Home Medications Medication Instructions Recorded Confirmed Type metFORMIN HCL [Glucophage] 500 mg PO BID@0800,199909/16/17 01/03/20 History Ferrous Gluconate 324 mg PO DAILY@79912/08/18 01/03/20 History Metoprolol Succinate [Toprol XL] 75 mg PO DAILY@79912/08/18 01/03/20 History Spironolactone 12.5 mg PO DAILY@79912/08/18 01/03/20 History Dulaglutide [Trulicity] 1.5 mg SQ SA@79906/15/19 01/03/20 History Furosemide [Lasix] 40 mg PO DAILY@79906/15/19 01/03/20 History Levothyroxine Sodium [Synthroid] 112 mcg PO DAILY@79906/15/19 01/03/20 History Budesonide-Formot 160-4.5 Mcg 2 puff INHALATION RT-BID@00,199909/26/19 01/03/20 History [Symbicort 160-4.5 Mcg Inhaler] Polyethylene Glycol 3350 [Miralax] 17 gm PO DAILY PRN 09/26/19 01/03/20 History Latanoprost/Pf [Latanoprost 0.005% 1 drop BOTH EYES HS 12/28/19 01/03/20 History Eye Drop] Cefuroxime Axetil [Ceftin] 500 mg PO BID #14 tab 12/29/19 01/03/20 Rx Ipratropium-Albuterol Nebulize 3 ml INHALATION RT-TID 01/03/20 01/03/20 History [Duoneb 0.5 mg-3 mg/3 ml Soln] Allergies Allergy/AdvReac Type Severity Reaction Status Date / Time aspirin Allergy Rash/Hives Verified 01/03/20 21:30 Physical Exam Vitals: Vital Signs Temp Pulse Pulse Resp BP BP Pulse Ox 01/04/20 07:51 100 01/04/20 07:46 96 01/04/20 03:05 97.7 F 93 16 94/70 96 01/03/20 23:14 18 01/03/20 22:40 97.5 F L 114 H 18 104/78 94 L 01/03/20 22:22 102 H 18 99/77 96 01/03/20 20:58 113 H 19 105/77 94 L 01/03/20 20:43 107 H 20 109/85 97 01/03/20 19:27 114 H 15 110/81 97 01/03/20 18:46 126 H 18 98/81 98 01/03/20 17:28 97.7 F 128 H 18 90/70 97 Intake and Output 01/03/20 01/04/20 01/04/20 22:59 06:59 14:59 Intake Total 1000 Balance 1000 Intake: Amount of Fluid Infused ( 1000 ml) Other: Weight 61.235 kg 68.5 kg Results CBC & Chem 7: 01/03/20 18:10 01/03/20 18:10 Labs: Abnormal Lab Results - Last 24 Hours (Table) 01/03/20 01/03/20 01/04/20 Range/Units 18:10 18:10 06:36 RBC 3.12 L (4.30-5.90) m/uL Hgb 11.0 L (13.0-17.5) gm/dL Hct 35.2 L (39.0-53.0) % MCV 112.8 H (80.0-100.0) fL MCH 35.1 H (25.0-35.0) pg Lymphocytes # 0.3 L (1.0-4.8) k/uL Macrocytosis Marked A Carbon Dioxide 17 L (22-30) mmol/L BUN 31 H (9-20) mg/dL Creatinine 1.27 H (0.66-1.25) mg/dL Glucose 224 H (74-99) mg/dL POC Glucose (mg/dL) 177 H (75-99) mg/dL Thrombosis Risk Factor Assmnt - Choose All That Apply Any of the Below Risk Factors Present?: Yes Each Factor Represents 1 point: Abnormal pulmonary function (COPD), Medical pt on bed rest, Serious lung disease incl. pneumonia (< 1month), Swollen legs (current) Each Risk Factor Represents 3 Points: Age 75 years or older Other congenital or acquired thrombophilia - If yes, enter type in comment: No Thrombosis Risk Factor Assessment Total Risk Factor Score: 7 Thrombosis Risk Factor Assessment Level: High Risk
--- NOTE | 2020-01-04 16:53 | CT ---
EXAMINATION TYPE: CT knee RT wo con DATE OF EXAM: 01/04/2020 COMPARISON: None HISTORY: right knee pain CT DLP: 144.4 mGycm Automated exposure control for dose reduction was used. Images were obtained from the lower femur to the proximal tibia without contrast. There is general osteopenia. I see no displaced fracture. The patella is intact. There is some athero sclerotic vascular calcification. There is very small knee joint effusion with a few air bubbles in t he joint fluid. Correlation with any history of needle aspiration needed. I see no focal bone destruc tion to suggest a neoplastic process. There is no evidence of a soft tissue mass. IMPRESSION: Small joint effusion with air bubbles that should be correlated with the surgical history. No fractur e seen. Moderate osteopenia.
[2020-01-04] MEDS: DICLOFENAC SODIUM GEL 100 GM TUBE TOPICAL SCH ×3 (18:49→20:35)
[2020-01-04 20:07] LABS: Glucose,Whole Blood 219 mg/dL (75-99)
[2020-01-04] MEDS: LATANOPROST 0.005% OPHTH DROPS 2.5 ML BTL BOTH EYES SCH (20:34)
[2020-01-05 06:12] LABS: Glucose,Whole Blood 105 mg/dL (75-99)
[2020-01-05] MEDS: SODIUM CHLORIDE 0.9% 1,000 ML IV SCH ×2 (06:23→16:10)
[2020-01-05] MEDS: INSULIN ASPART (NovoLOG) 100 UNIT/ML VIAL SQ SCH ×4 (06:24→21:12)
[2020-01-05] MEDS: SYMBICORT 160-4.5 MCG INHALER INHALATION SCH ×2 (08:05→21:16)
[2020-01-05] MEDS: IPRATROPIUM-ALBUTEROL 3 ML NEB INHALATION SCH ×3 (08:05→21:15)
[2020-01-05] MEDS: metFORMIN 500 MG TAB PO SCH ×2 (09:06→19:36)
[2020-01-05] MEDS: SPIRONOLACTONE 25 MG TAB PO SCH (09:06)
[2020-01-05] MEDS: METOPROLOL SUCCINATE (ER) 25 MG TAB.ER.24H PO SCH (09:06)
[2020-01-05] MEDS: LEVOTHYROXINE 112 MCG TAB PO SCH (09:07)
[2020-01-05] MEDS: FUROSEMIDE 40 MG TAB PO SCH (09:07)
[2020-01-05] MEDS: CEFDINIR 300 MG CAP PO SCH ×2 (09:07→21:09)
[2020-01-05] MEDS: DICLOFENAC SODIUM GEL 100 GM TUBE TOPICAL SCH ×4 (09:10→21:10)
[2020-01-05 12:27] LABS: Glucose,Whole Blood 130 mg/dL (75-99)
--- NOTE | 2020-01-05 16:45 | P.PN ---
Progress Note - Text Progress Note Date: 01/05/20 Chief Complaint: Right knee pain History of presenting complaint: This is a very pleasant 85-year-old patient of Dr. Gee. Chronic stable medical conditions include diabetes, GERD, hypertension, hypothyroid, diverticulosis, osteoarthritis, atrial fibrillation, chronic right-sided pleural effusion has had thoracentesis 2. Has some chronic loculation. Not a Candidate for anticoagulation because of lower GI bleeding. Also's had recurrent rectal bleeding because of radiation proctitis and anticoagulation. Has known radiation cystitis and does follow with Dr. Guzman. Does use a scooter at baseline. Lives at [facility]. Has been still smoking up to very recently. Patient was just in the hospital from December 27 through December 28 with a diagnosis of acute COPD exacerbation and tracheobronchitis. Patient normally uses a wheelchair. He was trying to transfer himself from his easy chair to the wheelchair. Lost his balance and fell down. Injuring his knee. Unable to get up. EMS was called out. Patient is having significant pain in the right knee not able to bend it. Admitted for the same. No fever no chills. Localized pain in the right knee. admitted with severe pain in the right knee. Patient felt to have hemarthrosis and about 15 mL of fluid was drained. Also steroid injection. Was done. Today-this is still having pain in the right knee. Otherwise comfortable. Being followed by orthopedics. Review of systems: Was done for constitutional, cardiovascular, GI, pulmonary. relevant finding as above Active Medications Acetaminophen (Tylenol Tab) 650 mg PO Q6HR PRN PRN Reason: Mild Pain or Fever > 100.5 Al Hydroxide/Mg Hydroxide (Maalox) 15 ml PO Q6HR PRN PRN Reason: Indigestion Albuterol/Ipratropium (Duoneb 0.5 Mg-3 Mg/3 Ml Soln) 3 ml INHALATION RT-TID [facility] Last Admin: 01/05/20 11:30 Dose: 3 ml Documented by: Alprazolam (Xanax) 0.25 mg PO Q6HR PRN PRN Reason: Anxiety Budesonide/Formoterol Fumarate (Symbicort 160-4.5 Mcg Inhaler) 2 puff INHALATION RT-BID@0800,1999 [facility] Last Admin: 01/05/20 08:05 Dose: 2 puff Documented by: Calcium Carbonate/Glycine (Tums) 1,000 mg PO Q4HR PRN PRN Reason: Dyspepsia Cefdinir (Omnicef) 300 mg PO BID [facility] Last Admin: 01/05/20 09:07 Dose: 300 mg Documented by: Diclofenac Sodium (Voltaren Gel) 4 gm TOPICAL QID [facility] Last Admin: 01/05/20 14:30 Dose: Not Given Documented by: Furosemide (Lasix) 40 mg PO DAILY@0800 [facility] Last Admin: 01/05/20 09:07 Dose: 40 mg Documented by: Hydromorphone HCl (Dilaudid) 0.5 mg IVP Q3HR PRN PRN Reason: Moderate Pain Last Admin: 01/04/20 09:41 Dose: 0.5 mg Documented by: Sodium Chloride (Saline 0.9%) 1,000 mls @ 75 mls/hr IV .[id number] [facility] Last Admin: 01/05/20 16:10 Dose: Not Given Documented by: Insulin Aspart (Novolog) 0 unit SQ [facility]; Protocol Last Admin: 01/05/20 12:37 Dose: Not Given Documented by: Lactulose (Cephulac) 20 gm PO DAILY PRN PRN Reason: Constipation Latanoprost (Xalatan 0.005%) 1 drops BOTH EYES [facility] Last Admin: 01/04/20 20:34 Dose: 1 drops Documented by: Levothyroxine Sodium (Synthroid) 112 mcg PO DAILY@0800 [facility] Last Admin: 01/05/20 09:07 Dose: 112 mcg Documented by: Magnesium Hydroxide (Milk Of Magnesia) 2,400 mg PO DAILY PRN PRN Reason: Constipation Melatonin (Melatonin) 3 mg PO HS PRN PRN Reason: Insomnia Metformin HCl (Glucophage) 500 mg PO BID@0800,2000 [facility] Last Admin: 01/05/20 09:06 Dose: 500 mg Documented by: Metoprolol Succinate (Toprol Xl) 75 mg PO DAILY@0800 [facility] Last Admin: 01/05/20 09:06 Dose: 75 mg Documented by: Morphine Sulfate (Morphine Sulfate (Inj)) 4 mg IV Q4HR PRN PRN Reason: Severe Pain Last Admin: 01/04/20 20:35 Dose: 4 mg Documented by: Naloxone HCl (Narcan) 0.2 mg IV Q2M PRN PRN Reason: Opioid Reversal Ondansetron HCl (Zofran) 4 mg IVP Q8HR PRN PRN Reason: Nausea And Vomiting Polyethylene Glycol (Miralax) 17 gm PO DAILY PRN PRN Reason: Constipation Spironolactone (Aldactone) 12.5 mg PO DAILY@0800 [facility] Last Admin: 01/05/20 09:06 Dose: 12.5 mg Documented by: Physical examination: VITAL SIGNS: 98, 102, 16, 94/63, 99% room air GENERAL: Sitting up in bed, awake EYES: Pupils equal. Conjunctiva pale HEENT: External appearance of nose and ears normal, oral cavity grossly normal. NECK: JVD not raised; masses not palpable. HEART: First and second heart sounds are normal; no edema. LUNGS: Respiratory rate increased, decreased breath sounds extremity wheezing ABDOMEN: Soft, nontender, liver spleen not palpable, no masses palpable. PSYCH: AAO 3, answering questions. MUSCULOSKELETAL: Tenderness around the right knee with mild swelling. Not able to bend the knee. INVESTIGATIONS, reviewed in the clinical context: White count 6.1 hemoglobin 11 platelets 08/27/2022 potassium 4.8 bun 31 creatinine 1.27 X-ray of the knee personally reviewed by me shows-osteopenia, evidence of OA, no obvious fracture. Report also reviewed. EKG tracing personally reviewed by me-atrial fibrillation with rate to 1 teens Chest x-ray film personally reviewed by me-chronic right pleural effusion with atelectasis Assessment: -This is a patient who fell on his right knee unable to get up. Unable to bend the knee. Localized pain with some swelling. Patient has underlying osteoarth ritis osteopenia and resultant hemarthrosis.. -COPD in a current smoker - chronic right-sided pleural effusion with thoracentesis 2 in the past likely transudate with some loculated pleural effusion -Chronic nicotine dependence patient cigarette smoker -Essential hypertension -Diabetes mellitus type 2 on oral hypoglycemic -Chronic gait dysfunction uses a wheelchair -Persistent atrial fibrillation not a candidate for any anticoagulation -Chronic thoracic spine osteoarthritis -Hypothyroidism -GERD -Moderate to severe mitral regurgitation nonrheumatic -Severe tricuspid regurgitation nonrheumatic -Severe secondary pulmonary hypertension secondary to COPD Plan: -we will get a strap for the right knee for some stability. Had a steroid injection done yesterday. Also given Voltaren gel. Other medications to continue.
[2020-01-05 17:56] LABS: Glucose,Whole Blood 190 mg/dL (75-99)
[2020-01-05 20:24] LABS: Glucose,Whole Blood 103 mg/dL (75-99)
[2020-01-05] MEDS: LATANOPROST 0.005% OPHTH DROPS 2.5 ML BTL BOTH EYES SCH (21:11)
[2020-01-06 04:06] LABS: Glucose,Whole Blood 157 mg/dL (75-99)
[2020-01-06] MEDS: SODIUM CHLORIDE 0.9% 1,000 ML IV SCH ×2 (04:30→18:42)
[2020-01-06 04:49] LABS: Albumin 3.3 g/dL (3.5-5.0); Calcium 8.6 mg/dL (8.4-10.2); Potassium 5.5 mmol/L (3.5-5.1); Total Bilirubin 0.7 mg/dL (0.2-1.3); Total Protein 6.4 g/dL (6.3-8.2)
[2020-01-06 05:31] LABS: Basophils % (A) 0 %; Eosinophils % (A) 0 %; HCT 35.1 % (39.0-53.0); HGB 10.9 gm/dL (13.0-17.5); Hypochromasia Marked; Lymphocytes # (A) 0.5 k/uL (1.0-4.8); Lymphocytes % (A) 5 %; MCH 37.3 pg (25.0-35.0); Macrocytosis Marked; Monocytes # (A) 0.3 k/uL (0-1.0); Monocytes % (A) 3 %; Neutrophils # (A) 8.9 k/uL (1.3-7.7); Neutrophils % (A) 91 %; Platelet Count 310 k/uL (150-450); RBC 2.92 m/uL (4.30-5.90); RDW 14.7 % (11.5-15.5); WBC 9.8 k/uL (3.8-10.6)
[2020-01-06 05:38] LABS: MCV 120.3 fL (80.0-100.0)
[2020-01-06 06:19] LABS: Anisocytosis (M) Present; Large Platelets Present; Polychromasia Present
[2020-01-06 06:22] LABS: Poikilocytosis (M) Present
[2020-01-06 07:19] LABS: Glucose,Whole Blood 166 mg/dL (75-99)
[2020-01-06] MEDS: IPRATROPIUM-ALBUTEROL 3 ML NEB INHALATION SCH ×5 (07:45→23:15)
[2020-01-06] MEDS: SYMBICORT 160-4.5 MCG INHALER INHALATION SCH (07:45)
[2020-01-06] MEDS: INSULIN ASPART (NovoLOG) 100 UNIT/ML VIAL SQ SCH ×4 (08:03→21:11)
[2020-01-06] MEDS: ACETAMINOPHEN TAB 325 MG TAB PO PRN (08:10)
[2020-01-06] MEDS: CEFDINIR 300 MG CAP PO SCH ×2 (08:11→21:12)
[2020-01-06] MEDS: SPIRONOLACTONE 25 MG TAB PO SCH (08:11)
[2020-01-06] MEDS: FUROSEMIDE 40 MG TAB PO SCH (08:11)
[2020-01-06] MEDS: METOPROLOL SUCCINATE (ER) 25 MG TAB.ER.24H PO SCH (08:11)
[2020-01-06] MEDS: metFORMIN 500 MG TAB PO SCH ×2 (08:11→19:38)
[2020-01-06] MEDS: DICLOFENAC SODIUM GEL 100 GM TUBE TOPICAL SCH ×4 (08:12→21:43)
[2020-01-06] MEDS: LEVOTHYROXINE 112 MCG TAB PO SCH (08:26)
[2020-01-06 11:20] LABS: Glucose,Whole Blood 205 mg/dL (75-99)
--- NOTE | 2020-01-06 11:57 | P.PN ---
Subjective Progress Note Date: 01/06/20 Principal diagnosis: Right knee pain, right knee osteoarthritis exacerbation, status post aspiration with intra-articular cortisone injection Patient evaluated today at bedside, he is resting in his hospital bed. His range of motion is improved with regards to knee. He continues to demonstrate tenderness along the medial joint line. He notes minimal improvement so far with steroid injection. Objective - Vital Signs Vital signs: Vital Signs Temp 96.7 F L 01/06/20 11:32 Pulse 103 H 01/06/20 11:32 Resp 18 01/06/20 11:32 BP 89/61 01/06/20 11:32 Pulse Ox 98 01/06/20 11:32 Intake & Output 01/05/20 01/06/20 01/06/20 18:59 06:59 18:59 Intake Total 600 Balance 600 Intake: Intake, IV Titration 600 Amount Sodium Chloride 0.9% 1, 600 000 ml @ 75 mls/hr IV . [id number] [facility] Rx#:[id number] Other: Voiding Method Diaper Diaper # Voids 1 1 - Exam Right lower extremity: no obvious effusion present. Patient is able to flex his knee past 90 no discomfort, he lacks about 10 of full extension. He's tender along the medial joint line. Calf is soft, no tenderness with palpation. Skin is warm to touch, sensory exam to light touch is intact throughout the extremity. - Labs CBC & Chem 7: 01/06/20 04:20 01/06/20 04:20 Labs: Abnormal Lab Results - Last 24 Hours (Table) 01/05/20 01/05/20 01/05/20 Range/Units 12:26 17:55 20:22 RBC (4.30-5.90) m/uL Hgb (13.0-17.5) gm/dL Hct (39.0-53.0) % MCV (80.0-100.0) fL MCH (25.0-35.0) pg Neutrophils # (1.3-7.7) k/uL Lymphocytes # (1.0-4.8) k/uL Macrocytosis Potassium (3.5-5.1) mmol/L Chloride (98-107) mmol/L Carbon Dioxide (22-30) mmol/L BUN (9-20) mg/dL Creatinine (0.66-1.25) mg/dL Glucose (74-99) mg/dL POC Glucose (mg/dL) 130 H 190 H 103 H (75-99) mg/dL Albumin (3.5-5.0) g/dL 01/06/20 01/06/20 01/06/20 Range/Units 04:04 04:20 04:20 RBC 2.92 L (4.30-5.90) m/uL Hgb 10.9 L (13.0-17.5) gm/dL Hct 35.1 L (39.0-53.0) % MCV 120.3 H D (80.0-100.0) fL MCH 37.3 H (25.0-35.0) pg Neutrophils # 8.9 H (1.3-7.7) k/uL Lymphocytes # 0.5 L (1.0-4.8) k/uL Macrocytosis Marked A Potassium 5.5 H (3.5-5.1) mmol/L Chloride 112 H (98-107) mmol/L Carbon Dioxide 10 L (22-30) mmol/L BUN 41 H (9-20) mg/dL Creatinine 1.69 H (0.66-1.25) mg/dL Glucose 160 H (74-99) mg/dL POC Glucose (mg/dL) 157 H (75-99) mg/dL Albumin 3.3 L (3.5-5.0) g/dL 01/06/20 01/06/20 Range/Units 07:17 11:18 RBC (4.30-5.90) m/uL Hgb (13.0-17.5) gm/dL Hct (39.0-53.0) % MCV (80.0-100.0) fL MCH (25.0-35.0) pg Neutrophils # (1.3-7.7) k/uL Lymphocytes # (1.0-4.8) k/uL Macrocytosis Potassium (3.5-5.1) mmol/L Chloride (98-107) mmol/L Carbon Dioxide (22-30) mmol/L BUN (9-20) mg/dL Creatinine (0.66-1.25) mg/dL Glucose (74-99) mg/dL POC Glucose (mg/dL) 166 H 205 H (75-99) mg/dL Albumin (3.5-5.0) g/dL Assessment and Plan Assessment: Right knee pain Right knee osteoarthritis with acute exacerbation Multiple medical comorbidities Plan: Continue symptomatic treatment at this time Recommend ambulation with walker Physical therapy evaluation Other medical specialty recommendations We'll be available for any further questions regarding this patient Time with Patient: Less than 30
[2020-01-06 15:27] VITALS: BMI 22.9
[2020-01-06 16:56] LABS: Glucose,Whole Blood 87 mg/dL (75-99)
--- NOTE | 2020-01-06 17:59 | P.PN ---
Progress Note - Text Progress Note Date: 01/06/20 Chief Complaint: Right knee pain History of presenting complaint: This is a very pleasant 85-year-old patient of Dr. Gee. Chronic stable medical conditions include diabetes, GERD, hypertension, hypothyroid, diverticulosis, osteoarthritis, atrial fibrillation, chronic right-sided pleural effusion has had thoracentesis 2. Has some chronic loculation. Not a Candidate for anticoagulation because of lower GI bleeding. Also's had recurrent rectal bleeding because of radiation proctitis and anticoagulation. Has known radiation cystitis and does follow with Dr. Guzman. Does use a scooter at baseline. Lives at [facility]. Has been still smoking up to very recently. Patient was just in the hospital from December 27 through December 28 with a diagnosis of acute COPD exacerbation and tracheobronchitis. Patient normally uses a wheelchair. He was trying to transfer himself from his easy chair to the wheelchair. Lost his balance and fell down. Injuring his knee. Unable to get up. EMS was called out. Patient is having significant pain in the right knee not able to bend it. Admitted for the same. No fever no chills. Localized pain in the right knee. admitted with severe pain in the right knee. Patient felt to have hemarthrosis and about 15 mL of fluid was drained. Also steroid injection. Was done. Today-right knee pain is better. He is able to extend it slowly. Did tolerate some diet. Some shortness of breath. Review of systems: Was done for constitutional, cardiovascular, GI, pulmonary. relevant finding as above Active Medications Acetaminophen (Tylenol Tab) 650 mg PO Q6HR PRN PRN Reason: Mild Pain or Fever > 100.5 Last Admin: 01/06/20 08:10 Dose: 650 mg Documented by: Al Hydroxide/Mg Hydroxide (Maalox) 15 ml PO Q6HR PRN PRN Reason: Indigestion Albuterol/Ipratropium (Duoneb 0.5 Mg-3 Mg/3 Ml Soln) 3 ml INHALATION RT-TID [facility] Last Admin: 01/06/20 12:49 Dose: 3 ml Documented by: Alprazolam (Xanax) 0.25 mg PO Q6HR PRN PRN Reason: Anxiety Budesonide/Formoterol Fumarate (Symbicort 160-4.5 Mcg Inhaler) 2 puff INHALATION RT-BID@ [facility] Last Admin: 01/06/20 07:45 Dose: Not Given Documented by: Calcium Carbonate/Glycine (Tums) 1,000 mg PO Q4HR PRN PRN Reason: Dyspepsia Cefdinir (Omnicef) 300 mg PO BID [facility] Last Admin: 01/06/20 08:11 Dose: 300 mg Documented by: Diclofenac Sodium (Voltaren Gel) 4 gm TOPICAL QID [facility] Last Admin: 01/06/20 15:19 Dose: Not Given Documented by: Furosemide (Lasix) 40 mg PO DAILY@0800 [facility] Last Admin: 01/06/20 08:11 Dose: 40 mg Documented by: Hydromorphone HCl (Dilaudid) 0.5 mg IVP Q3HR PRN PRN Reason: Moderate Pain Last Admin: 01/04/20 09:41 Dose: 0.5 mg Documented by: Sodium Chloride (Saline 0.9%) 1,000 mls @ 75 mls/hr IV .[id number] [facility] Last Admin: 01/06/20 04:30 Dose: 75 mls/hr Documented by: Insulin Aspart (Novolog) [address] [facility]; Protocol Last Admin: 01/06/20 17:19 Dose: Not Given Documented by: Lactulose (Cephulac) 20 gm PO DAILY PRN PRN Reason: Constipation Latanoprost (Xalatan 0.005%) 1 drops [facility] Last Admin: 01/05/20 21:11 Dose: 1 drops Documented by: Levothyroxine Sodium (Synthroid) 112 mcg PO DAILY@0800 [facility] Last Admin: 01/06/20 08:26 Dose: Not Given Documented by: Magnesium Hydroxide (Milk Of Magnesia) 2,400 mg PO DAILY PRN PRN Reason: Constipation Melatonin (Melatonin) 3 mg PO HS PRN PRN Reason: Insomnia Metformin HCl (Glucophage) 500 mg PO BID@ [facility] Last Admin: 01/06/20 08:11 Dose: 500 mg Documented by: Metoprolol Succinate (Toprol Xl) 75 mg PO DAILY@0800 [facility] Last Admin: 01/06/20 08:11 Dose: 75 mg Documented by: Morphine Sulfate (Morphine Sulfate (Inj)) 4 mg IV Q4HR PRN PRN Reason: Severe Pain Last Admin: 01/04/20 20:35 Dose: 4 mg Documented by: Naloxone HCl (Narcan) 0.2 mg IV Q2M PRN PRN Reason: Opioid Reversal Ondansetron HCl (Zofran) 4 mg IVP Q8HR PRN PRN Reason: Nausea And Vomiting Polyethylene Glycol (Miralax) 17 gm PO DAILY PRN PRN Reason: Constipation Spironolactone (Aldactone) 12.5 mg PO DAILY@0800 [facility] Last Admin: 01/06/20 08:11 Dose: 12.5 mg Documented by: Physical examination: VITAL SIGNS: 97.4, 98, 18, 99/62, 97% on 2 L GENERAL: Sitting up in bed, awake EYES: Pupils equal. Conjunctiva pale HEENT: External appearance of nose and ears normal, oral cavity grossly normal. NECK: JVD not raised; masses not palpable. HEART: First and second heart sounds are normal; no edema. LUNGS: Respiratory rate increased, decreased breath sounds extremity wheezing ABDOMEN: Soft, nontender, liver spleen not palpable, no masses palpable. PSYCH: AAO 3, answering questions. MUSCULOSKELETAL: Tenderness around the right knee with mild swelling. Able to slowly extend the knee today. INVESTIGATIONS, reviewed in the clinical context: White count 9.8 hemoglobin 10.9 potassium 5.5 bun 41 creatinine 1.69 Previous testing White count 6.1 hemoglobin 11 platelets 08/27/2022 potassium 4.8 bun 31 creatinine 1.27 X-ray of the knee personally reviewed by me shows-osteopenia, evidence of OA, no obvious fracture. Report also reviewed. EKG tracing personally reviewed by me-atrial fibrillation with rate to 1 teens Chest x-ray film personally reviewed by me-chronic right pleural effusion with atelectasis Assessment: -This is a patient who fell on his right knee unable to get up. Unable to bend the knee. Localized pain with some swelling. Patient has underlying osteoarthritis osteopenia and resultant hemarthrosis..-Status post some evacuation and steroid injection -COPD in a current smoker - chronic right-sided pleural effusion with thoracentesis 2 in the past likely transudate with some loculated pleural effusion -Chronic nicotine dependence patient cigarette smoker -Essential hypertension -Diabetes mellitus type 2 on oral hypoglycemic -Chronic gait dysfunction uses a wheelchair -Persistent atrial fibrillation not a candidate for any anticoagulation -Chronic thoracic spine osteoarthritis -Hypothyroidism -GERD -Moderate to severe mitral regurgitation nonrheumatic -Severe tricuspid regurgitation nonrheumatic -Severe secondary pulmonary hypertension secondary to COPD Plan: -Patient is able to extend his knee slowly. Was still has some pain. Discussed with the patient to passively increased to range of motion of his right knee. PTOT of the case. DC IV fluids. Give Kayexalate. 4 hyperkalemia.
[2020-01-06] MEDS ORDERED: SODIUM POLYSTYRENE SULFONATE 15 GM/60 ML BOTTLE PO STA (18:00)
[2020-01-06] MEDS: BUDESONIDE 1 MG/2 ML NEBU INHALATION SCH (19:42)
[2020-01-06] MEDS: FORMOTEROL FUMARATE 20 MCG/2 ML NEBU INHALATION SCH (19:43)
[2020-01-06 20:25] LABS: Glucose,Whole Blood 171 mg/dL (75-99)
[2020-01-06] MEDS: LATANOPROST 0.005% OPHTH DROPS 2.5 ML BTL BOTH EYES SCH (21:44)
[2020-01-07] MEDS: IPRATROPIUM-ALBUTEROL 3 ML NEB INHALATION SCH ×5 (04:00→19:13)
[2020-01-07] MEDS: FORMOTEROL FUMARATE 20 MCG/2 ML NEBU INHALATION SCH ×2 (07:03→19:13)
[2020-01-07] MEDS: BUDESONIDE 1 MG/2 ML NEBU INHALATION SCH ×2 (07:03→19:13)
[2020-01-07 07:17] LABS: Glucose,Whole Blood 89 mg/dL (75-99)
[2020-01-07] MEDS: INSULIN ASPART (NovoLOG) 100 UNIT/ML VIAL SQ SCH ×4 (07:37→20:46)
[2020-01-07] MEDS: LEVOTHYROXINE 112 MCG TAB PO SCH (07:48)
[2020-01-07] MEDS: METOPROLOL SUCCINATE (ER) 25 MG TAB.ER.24H PO SCH (07:48)
[2020-01-07] MEDS: metFORMIN 500 MG TAB PO SCH (07:48)
[2020-01-07] MEDS: FUROSEMIDE 40 MG TAB PO SCH (07:48)
[2020-01-07] MEDS: CEFDINIR 300 MG CAP PO SCH ×2 (07:48→20:45)
[2020-01-07] MEDS: DICLOFENAC SODIUM GEL 100 GM TUBE TOPICAL SCH ×4 (07:51→20:46)
--- NOTE | 2020-01-07 08:03 | XR ---
EXAMINATION TYPE: XR chest 2V DATE OF EXAM: 01/07/2020 COMPARISON: 01/03/2020 HISTORY: 85-year-old male COPD TECHNIQUE: Frontal and lateral views FINDINGS: Heart mildly enlarged. Continued moderate right pleural effusion and trace left pleural effusion. Iam e lobulated contours to the effusion on the right. IMPRESSION: Continued moderate right pleural effusion with adjacent atelectasis and/or consolidation. Similar to slightly increased. Continued mild cardiomegaly.
[2020-01-07 08:08] LABS: Calcium 8.3 mg/dL (8.4-10.2); Potassium 4.3 mmol/L (3.5-5.1)
--- NOTE | 2020-01-07 09:45 | P.PN ---
Subjective On-call hospitalist covering for Dr. Redman From records This is a very pleasant 85-year-old patient of Dr. Gee. Chronic stable medical conditions include diabetes, GERD, hypertension, hypothyroid, diverticulosis, osteoarthritis, atrial fibrillation, chronic right-sided pleural effusion has had thoracentesis 2. Has some chronic loculation. Not a Candidate for anticoagulation because of lower GI bleeding. Also's had recurrent rectal bleeding because of radiation proctitis and anticoagulation. Has known radiation cystitis and does follow with Dr. Guzman. Does use a scooter at baseline. Lives at [facility]. Has been still smoking up to very recently. Patient was just in the hospital from December 27 through December 28 with a diagnosis of acute COPD exacerbation and tracheobronchitis. Patient normally uses a wheelchair. He was trying to transfer himself from his easy chair to the wheelchair. Lost his balance and fell down. Injuring his knee. Unable to get up. EMS was called out. Patient is having significant pain in the right knee not able to bend it. Admitted for the same. No fever no chills. Localized pain in the right knee. admitted with severe pain in the right knee. Patient felt to have hemarthrosis and about 15 mL of fluid was drained. Also steroid injection. Was done. 01/07/2020 This is a pleasant 85 years old male who presents with fall from his wheelchair and found to have hemarthrosis of his right knee status post respiration and intra-articular steroid injection by orthopedic team. His right knee is not swollen today however still painful as per patient especially on the lateral side about 10/10 however patient lying comfortable in bed does not look in distress. This is a patient is not feeling well and he complains from orthopnea. He has chronic history of right pleural effusion, chest x-ray from today it looks the same with slight worsening, all A service has been consulted. Also his creatinine went up to 2.1 today, his blood pressure is only low side, we worked his metoprolol from 75 down to 25 mg daily, also hold metformin. Patient currently is not on IV fluids however he is on Omnicef 300 mg twice daily. Also he is on oral Lasix 40 mg daily. Review of systems CONSTITUTIONAL: No fever, no malaise, no fatigue. HEENT: No recent visual problems or hearing problems. Denied any sore throat. CARDIOVASCULAR: no palpitations, no syncope. PULMONARY:no cough, no hemoptysis. GASTROINTESTINAL: No diarrhea, no nausea, no vomiting, no abdominal pain. Normoactive bowel sounds. NEUROLOGICAL: No headaches, no weakness, no numbness. HEMATOLOGICAL: Denies any bleeding or petechiae. GENITOURINARY: Denies any burning micturition, frequency, or urgency. ENDOCRINE: Denies any polyuria or polydipsia. Active Medications Generic Name Dose Route Start Last Admin Trade Name Freq PRN Reason Stop Dose Admin Acetaminophen 650 mg 01/03/20 21:22 01/06/20 08:10 Tylenol Tab PO 650 mg Q6HR PRN Administration Mild Pain or Fever > 100.5 Al Hydroxide/Mg Hydroxide 15 ml 01/03/20 21:22 Maalox PO Q6HR PRN Indigestion Albuterol/Ipratropium 3 ml 01/06/20 18:02 01/07/20 07:03 Duoneb 0.5 Mg-3 Mg/3 Ml Soln INHALATION 3 ml RT-Q4H [facility] Administration Alprazolam 0.25 mg 01/03/20 20:23 Xanax PO Q6HR PRN Anxiety Budesonide 1 mg 01/06/20 20:00 01/07/20 07:03 Pulmicort INHALATION 1 mg RT-BID [facility] Administration Calcium Carbonate/Glycine 1,000 mg 01/03/20 21:22 Tums PO Q4HR PRN Dyspepsia Cefdinir 300 mg 01/04/20 09:00 01/07/20 07:48 Omnicef PO 300 mg BID [facility] Administration Diclofenac Sodium 4 gm 01/04/20 13:30 01/07/20 07:51 Voltaren Gel TOPICAL 4 gm QID [facility] Administration Formoterol Fumarate 20 mcg 01/06/20 20:00 01/07/20 07:03 Perforomist INHALATION 20 mcg RT-BID [facility] Administration Furosemide 40 mg 01/04/20 08:00 01/07/20 07:48 Lasix PO 40 mg DAILY@0800 [facility] Administration Hydromorphone HCl 0.5 mg 01/03/20 20:23 01/04/20 09:41 Dilaudid IVP 0.5 mg Q3HR PRN Administration Moderate Pain Insulin Aspart 0 unit 01/04/20 07:30 01/07/20 07:37 Novolog SQ Not Given ACHS [facility] Protocol Lactulose 20 gm 01/03/20 21:22 Cephulac PO DAILY PRN Constipation Latanoprost 1 drops 01/03/20 21:30 01/06/20 21:44 Xalatan 0.005% BOTH EYES 1 drops HS [facility] Administration Levothyroxine Sodium 112 mcg 01/04/20 08:00 01/07/20 07:48 Synthroid PO 112 mcg DAILY@0800 [facility] Administration Magnesium Hydroxide 2,400 mg 01/03/20 21:22 Milk Of Magnesia PO DAILY PRN Constipation Melatonin 3 mg 01/03/20 21:22 Melatonin PO HS PRN Insomnia Metoprolol Succinate 25 mg 01/08/20 08:00 Toprol Xl PO DAILY@0800 [facility] Morphine Sulfate 4 mg 01/03/20 20:23 01/04/20 20:35 Morphine Sulfate (Inj) IV 4 mg Q4HR PRN Administration Severe Pain Naloxone HCl 0.2 mg 01/03/20 20:23 Narcan IV Q2M PRN Opioid Reversal Ondansetron HCl 4 mg 01/03/20 21:22 Zofran IVP Q8HR PRN Nausea And Vomiting Polyethylene Glycol 17 gm 01/03/20 21:21 Miralax PO DAILY PRN Constipation Objective - Vital Signs Vital signs: Vital Signs Temp 97.7 F 01/07/20 05:43 Pulse 103 H 01/07/20 07:42 Resp 12 01/07/20 05:43 BP 106/71 01/07/20 07:42 Pulse Ox 96 01/07/20 05:43 Intake & Output 01/06/20 01/07/20 01/07/20 18:59 06:59 18:59 Intake Total 760 620 Balance 760 620 Weight 68.5 kg Intake: Intake, IV Titration 600 Amount Sodium Chloride 0.9% 1, 600 000 ml @ 75 mls/hr IV . [id number] [facility] Rx#:[id number] Oral 160 620 Other: Voiding Method Diaper Diaper # Voids 2 1 - Exam -GENERAL: The patient is alert and oriented x3, not in any acute distress. Thin built and generalized weakness HEENT: Pupils are round and equally reacting to light. EOMI. No scleral icterus. No conjunctival pallor. Normocephalic, atraumatic. No pharyngeal erythema. No thyromegaly. CARDIOVASCULAR: S1 and S2 present. No murmurs, rubs, or gallops. -PULMONARY: Chest is clear to auscultation, no wheezing or crackles. Right basal crepitation ABDOMEN: Soft, nontender, nondistended, normoactive bowel sounds. No palpable organomegaly. -MUSCULOSKELETAL: No joint swelling or deformity. Limited movement of the right knee due to pain, no swelling EXTREMITIES: No cyanosis, clubbing, or pedal edema. NEUROLOGICAL: Gross neurological examination did not reveal any focal deficits. SKIN: No rashes. no petechiae. - Labs CBC & Chem 7: 01/06/20 04:20 01/07/20 06:47 Labs: Abnormal Lab Results - Last 24 Hours (Table) 01/06/20 01/06/20 01/07/20 Range/Units 11:18 20:24 06:47 Chloride 113 H (98-107) mmol/L Carbon Dioxide 18 L (22-30) mmol/L BUN 48 H (9-20) mg/dL Creatinine 2.12 H (0.66-1.25) mg/dL POC Glucose (mg/dL) 205 H 171 H (75-99) mg/dL Calcium 8.3 L (8.4-10.2) mg/dL Assessment and Plan Assessment: -Right knee hemarthrosis secondary to fall status post aspiration and steroid injection -Chronic right pleural effusion with slight worsening and orthopnea -Acute kidney injury -Low normal blood pressure -Fall -Generalized weakness -COPD in a current smoker -chronic right-sided pleural effusion with thoracentesis 2 in the past likely transudate with some loculated pleural effusion -Chronic nicotine dependence patient cigarette smoker -Essential hypertension -Diabetes mellitus type 2 on oral hypoglycemic -Chronic gait dysfunction uses a wheelchair -Persistent atrial fibrillation not a candidate for any anticoagulation -Chronic thoracic spine osteoarthritis -Hypothyroidism -GERD -Moderate to severe mitral regurgitation nonrheumatic -Severe tricuspid regurgitation nonrheumatic -Severe secondary pulmonary hypertension secondary to COPD Plan: This is a pleasant 85 years old male who presents with right knee hemarthrosis status post respiration. Also consult pulmonary for his chronic right pleural effusion. Kidney function is worse., Blood pressure medication, hold metformin and consult nephrology Labs and medication were reviewed.. Continue same treatment. Continue with symptomatic treatment. Resume home medication. Monitor lytes and vitals. DVT and GI prophylaxis. Further recommendations of the clinical course of the patient DVT prophylaxis: Subcutaneous heparin GI Prophylaxis: Pepcid PT/OT: Subacute rehab, social media marketing manager consulted
--- NOTE | 2020-01-07 10:05 | CDI ---
Documentation Clarification Form Date: 01/07/2020 09:57:57 AM From: Nicki Ramires RN, CCDS Admit Date: 01/05/2020 08:29:00 AM Patient Name: Jose Chakraborty Visit Number: [id number] ATTENTION: The Clinical Documentation Specialists (CDI) and [facility] Coding Staff appreciate your assistance in clarifying documentation. Please respond to the clarification below the line at the bottom and electronically sign. The CDI & [facility] Coding staff will review the response and follow-up if needed. Please note: Queries are made part of the Legal Health Record. If you have any questions, please contact the author of this message via ITS. Dr. Tapia Chronic anemia is documented in the PMH and requires further specificity. History/Risk Factors: Chronic anemia, DM, COPD, Chronic Atrial Fib, hx of prostate and thyroid CA, duodenal ulcer, ETOH Clinical indicators: Hemoglobin: /10.9 Hematocrit: 35.2/35.1 Treatment: Labs AM Daily for monitoring 01/02 IVF Bolus 1 L 0.9% NS In order to capture the severity of condition, please clarify the type of anemia and etiology if known. Chronic blood loss anemia Iron deficiency anemia Drug induced anemia Anemia due to malignancy Nutritional anemia Anemia of chronic disease Unable to determine Other, please specify (Last Form Revision: September 2019) Unable to determine MTDD
[2020-01-07 12:24] LABS: Glucose,Whole Blood 191 mg/dL (75-99)
[2020-01-07] MEDS: ACETAMINOPHEN TAB 325 MG TAB PO PRN (12:31)
[2020-01-07] MEDS: FAMOTIDINE 20 MG/2 ML VIAL IV SCH (12:32)
--- NOTE | 2020-01-07 16:23 | US ---
EXAMINATION TYPE: US kidneys/renal and bladder DATE OF EXAM: 01/07/2020 COMPARISON: Correlation CT 02/01/2018 CLINICAL HISTORY: 85-year-old male Renal failure, exam done portable. TECHNIQUE: Multiple sonographic images of the kidneys and bladder are obtained. FINDINGS: EXAM MEASUREMENTS: Right Kidney: 9.7 x 5.2 x 4.5 cm Left Kidney: 9.4 x 4.7 x 5.2 cm No hydronephrosis on either side. Right Kidney: cortical thinning Left Kidney: cortical thinning, 1.6cm cyst Bladder: thickened wall, 4.1cm pedunculated outpouching along the right posterior wall with some depe ndent debris within Bilateral Jets seen: yes Fluid seen in RUQ and LUQ Right pleural effusion Thickened gallbladder wall seen IMPRESSION: 1. No hydronephrosis. Changes of chronic medical renal disease. 2. Mild ascites fluid. Right pleural effusion partially visualized. Correlate for possible etiology i ncluding fluid overload state. 3. Gallbladder wall thickening is nonspecific. In the absence of pain, this could be secondary to flu id overload state. Follow-up as clinically indicated. 4. Pedunculated outpouching on the right posterior bladder wall contains some debris. Findings compat ible with a large bladder wall diverticulum as seen on the CT of 02/01/2018.
[2020-01-07 17:23] LABS: Glucose,Whole Blood 236 mg/dL (75-99)
--- NOTE | 2020-01-07 18:39 | CONS ---
CONSULTATION PULMONARY/CRITICAL CARE CONSULTATION: DATE OF CONSULTATION: Consultation dated January 07, 2020 HISTORY OF PRESENT ILLNESS: This is an 85-year-old male that we were asked to see because of nocturnal desaturation. He apparently was admitted back on January 02 to the hospital having fallen and injuring his right knee. He apparently denied any head trauma at that time, or loss of consciousness. Anyway, the patient is here for that reason. When we walked into the room, he denies being short of breath or having any chest pain. He only complains about his right knee. Apparently throughout the night, his saturations dropped and nasal O2 was placed. His chest x-ray does show a loculated right-sided pleural effusion, which is about the same as it was before. Apparently, we have done thoracentesis on him in the past. Anyway, again, he is not complaining of any respiratory issues at this time. CURRENT MEDICATIONS: Reviewed. He is on metformin, iron, metoprolol, Aldactone, Trulicity, Lasix, levothyroxine, Symbicort, polyethylene glycol/MiraLAX, eye drops, DuoNeb, Ceftin, and prednisone. ALLERGIES: ASPIRIN. PAST MEDICAL HISTORY: Includes atrial fibrillation, COPD, diabetes, GERD, hypertension, osteoarthritis, pneumonia, hypothyroidism, diabetic neuropathy, thyroid cancer, and previous thyroidectomy, skin cancer, prostate cancer with previous radiation treatment, lower gastrointestinal bleed, radiation proctitis, diverticular disease, chronic anemia, duodenal ulcer, history of alcohol abuse with alcohol withdrawal syndrome and delirium tremens, and arthritis. SURGICAL HISTORY: Includes bowel resection, thyroidectomy, colonoscopy, polypectomy, skin cancer removal, bilateral cataract surgery, bowel resection, and sigmoidoscopy. SOCIAL HISTORY: Positive for current everyday tobacco use. He does have a history of alcohol abuse in the past and denies any illicit drug use. FAMILY HISTORY: Apparently positive for father with asthma, CVA, pacemaker insertion, and mother with chest pain and angina. Both apparently were smokers. REVIEW OF SYSTEMS: CONSTITUTIONAL negative. NEUROLOGIC negative. HEENT negative. CARDIOVASCULAR negative. PULMONARY negative. GI negative. negative. RHEUMATOLOGIC: Right knee pain. IMMUNOLOGIC negative. ENDOCRINOLOGIC negative. DERMATOLOGIC negative. PHYSICAL EXAMINATION: VITAL SIGNS: Vital signs are reviewed. His vital signs are stable including a normal temperature, heart rate 88, respiratory rate 18, blood pressure 100/58. His saturations on a couple L are all in the high mid to high 90s. I see 1 saturation yesterday at 11:56 am on room air to be 82%. GENERAL: Appears in no acute distress. HEENT: Examination is grossly unremarkable. NECK: Supple. Full range of motion. CARDIOVASCULAR: Examination reveals regular rhythm and rate. Heart sounds are distant. LUNGS: A few scattered basilar crackles. Breath sounds are diminished at the right base. ABDOMEN: Soft. EXTREMITIES are intact. No edema. SKIN: Without rash. Multiple areas of ecchymoses. NEUROLOGIC: Examination is brief but nonfocal. LABS: Reviewed. From January 06, sodium 141, potassium 4.3, chloride 113, CO2 is 30, anion gap is 10, BUN and creatinine were 48 and 2.12. No CBC from today. From yesterday, white count 9.8, hemoglobin 10.9, hematocrit 35.1, platelet count is 210,000. X-RAY: Chest x-ray from the day of admission shows a moderately sized right-sided pleural effusion with some loculations. Repeat chest x-ray from today shows a similar pattern of moderate right-sided pleural effusion. Medications are reviewed. Microbiology is negative or pending. ASSESSMENT: 1. Right knee injury/pain secondary to a fall. 2. Atrial fibrillation with RVR. 3. Stable right-sided pleural effusion. 4. Atrial fibrillation. 5. History of prostate cancer, status post external beam radiation. 6. History of skin cancer. 7. Chronic obstructive pulmonary disease. 8. Diabetes mellitus with diabetic neuropathy. 9. Gastroesophageal reflux disease. 10.History of benign essential hypertension. 11.History of gastrointestinal bleed. 12.Radiation proctitis. 13.History of diverticular disease. 14.History of chronic alcohol abuse with alcohol withdrawal syndrome. PLAN: Currently, the patient is doing reasonably well. He does not complain of being short of breath. At this point, we will not do anything about the right pleural effusion. If it becomes a problem, would consider thoracentesis. Would recommend diuresis at this time. No additional recommendations are made. MMODL / IJN: [id number] /
[2020-01-07] MEDS: MIDODRINE 5 MG TAB PO SCH (19:27)
--- NOTE | 2020-01-07 20:03 | CONS ---
CONSULTATION REASON FOR CONSULT: Renal failure. HISTORY OF PRESENT ILLNESS: Patient is an 85-year-old male who was admitted to the hospital on January 02 with complaints of shortness of breath. He is complaining of pain in his right knee in. He was admitted to the hospital status post fall and he developed hemarthrosis of his right knee which is status post aspiration and right intraarticular steroid injection. On admission, patient's serum creatinine was 1.27 mg/dL. It has gone up to 2.1 now. Review of previous labs shows creatinine of 1.18 on 12/27/2019. Since admission, patient's blood pressure has been on the lower side with systolic 87-90 mmHg. The patient is maintained on Omnicef. He is also on Lasix 40 mg p.o. daily. I do not see any ROSALINDA inhibitors or angiotensin receptor blockers or nonsteroidal anti-inflammatory agents on board at this time. The patient did have a knee CT done on January 03 however, that was without contrast. He is currently voiding through a diaper. PAST MEDICAL HISTORY: Significant for hypertension, hypothyroidism, type 2 diabetes, chronic atrial fibrillation, history of pleural effusion, status post thoracentesis, history of latent TB, COPD, thyroid cancer with previous thyroidectomy, multiple skin cancers, history of prostatic cancer status post radiation therapy, osteoarthritis, previous history of EtOH abuse. PAST SURGICAL HISTORY: Thyroidectomy, colonoscopy, polypectomy, bowel resection for diverticulitis, cataract surgery, multiple skin cancer removal. SOCIAL HISTORY IS: Positive for smoking as well as history of EtOH use which is ongoing and current. CURRENT MEDICATIONS: At home prior to admission included metformin, iron, metoprolol, Trulicity, spironolactone, Lasix, Synthroid, MiraLAX, Ceftin. ALLERGIES: INCLUDE ASPIRIN WHICH CAUSES RASH AND HIVES. REVIEW OF SYSTEMS: As per HPI. Other systems negative. PHYSICAL EXAMINATION: Patient is currently complaining of pain in his right leg. He is mild distress, not in any acute distress. He is not short of breath. Blood pressure was 87/63, heart rate 106 per minute. He is afebrile. Examination of the heart S1, S2. Examination of the lungs, bilateral breath sounds are heard. Abdomen is soft, nontender. Examination lower extremities shows swelling right knee. Trace edema noted. The patient is moving his extremities. LABS: From today show sodium 141, potassium 4.3, chloride 113, CO2 is 18, BUN 48, creatinine 2.1. Chest x-ray shows pleural effusions. ASSESSMENT: 1. Acute kidney injury mostly ischemic acute tubular necrosis. Rule out urine retention. Check postvoid residual. I will add midodrine as blood pressure remains low. Patient is not on any nephrotoxic medications. He is maintained on low-dose Lasix which we can continue given the ongoing pleural effusions noted on the chest x-ray. Agree with discontinuation of Glucophage. I will also order urinalysis and ultrasound of the kidneys. 2. Right knee hemarthrosis, status post fall, status post aspiration and intra- articular steroids. 3. Chronic right pleural effusion. 4. Chronic atrial fibrillation. 5. History of thyroid cancer status post surgery, maintained on supplementation. 6. Severe pulmonary hypertension associated with chronic obstructive pulmonary disease. Echocardiogram in September of 2019 shows ejection fraction 45-50 percent. 7. Severely dilated left atrium. PLAN: Add midodrine. Check random cortisol level. Check urinalysis. Check postvoid residual. May continue with current dose of Lasix. Continue off metformin. Repeat labs in a.m. Encourage increased p.o. intake. If the patient is not eating, I will add IV fluids. However, I am reluctant to add IV fluids at this point. No nephrotoxic agents on board at this time. Thank you for this consultation. Will continue to follow the patient with you during his hospitalization. SON / WILBUR: [id number] /
[2020-01-07 20:20] LABS: Glucose,Whole Blood 322 mg/dL (75-99)
[2020-01-07] MEDS: HEPARIN SODIUM,PORCINE 5,000 UNIT/ML 1 ML VIAL SQ SCH (20:45)
[2020-01-07] MEDS: LATANOPROST 0.005% OPHTH DROPS 2.5 ML BTL BOTH EYES SCH (20:47)
[2020-01-07] MEDS ORDERED: FAMOTIDINE 20 MG/2 ML VIAL IV SCH (21:00)
[2020-01-08] MEDS: IPRATROPIUM-ALBUTEROL 3 ML NEB INHALATION SCH ×6 (00:24→19:57)
[2020-01-08] MEDS: HYDROmorphone 0.5 MG/0.5 ML SYRINGE IVP PRN (01:38)
[2020-01-08] MEDS: ALPRAZolam 0.25 MG TAB PO PRN (03:27)
[2020-01-08] MEDS: ACETAMINOPHEN TAB 325 MG TAB PO PRN (03:27)
[2020-01-08] MEDS: BUDESONIDE 1 MG/2 ML NEBU INHALATION SCH ×2 (07:00→19:57)
[2020-01-08] MEDS: FORMOTEROL FUMARATE 20 MCG/2 ML NEBU INHALATION SCH ×2 (07:00→19:57)
[2020-01-08 07:19] LABS: Calcium 8.2 mg/dL (8.4-10.2); Potassium 4.4 mmol/L (3.5-5.1)
[2020-01-08 07:20] LABS: Glucose,Whole Blood 149 mg/dL (75-99)
[2020-01-08 07:58] LABS: Basophils % (A) 0 %; Eosinophils # (A) 0.1 k/uL (0-0.7); Eosinophils % (A) 1 %; HCT 34.2 % (39.0-53.0); Hypochromasia Moderate; Lymphocytes # (A) 0.5 k/uL (1.0-4.8); Lymphocytes % (A) 5 %; MCH 37.6 pg (25.0-35.0); MCHC 32.2 g/dL (31.0-37.0); MCV 116.9 fL (80.0-100.0); Macrocytosis Marked; Mean Platelet Volume 9.8; Monocytes # (A) 0.3 k/uL (0-1.0); Monocytes % (A) 3 %; Neutrophils # (A) 8.8 k/uL (1.3-7.7); Neutrophils % (A) 90 %; Platelet Count 236 k/uL (150-450); RBC 2.93 m/uL (4.30-5.90); WBC 9.7 k/uL (3.8-10.6)
[2020-01-08] MEDS: CEFDINIR 300 MG CAP PO SCH ×2 (10:59→20:17)
[2020-01-08] MEDS: METOPROLOL SUCCINATE (ER) 25 MG TAB.ER.24H PO SCH (10:59)
[2020-01-08] MEDS: FAMOTIDINE 20 MG/2 ML VIAL IV SCH (10:59)
[2020-01-08] MEDS: INSULIN ASPART (NovoLOG) 100 UNIT/ML VIAL SQ SCH ×4 (11:00→21:01)
[2020-01-08] MEDS: HEPARIN SODIUM,PORCINE 5,000 UNIT/ML 1 ML VIAL SQ SCH ×2 (11:00→20:17)
[2020-01-08] MEDS: MIDODRINE 5 MG TAB PO SCH ×3 (11:01→18:29)
[2020-01-08] MEDS: FUROSEMIDE 40 MG TAB PO SCH (11:02)
[2020-01-08] MEDS: LEVOTHYROXINE 112 MCG TAB PO SCH (11:09)
[2020-01-08] MEDS: DICLOFENAC SODIUM GEL 100 GM TUBE TOPICAL SCH ×4 (11:09→21:02)
--- NOTE | 2020-01-08 11:26 | P.PN ---
Subjective On-call hospitalist covering for Dr. Redman From records This is a very pleasant 85-year-old patient of Dr. Gee. Chronic stable medical conditions include diabetes, GERD, hypertension, hypothyroid, diverticulosis, osteoarthritis, atrial fibrillation, chronic right-sided pleural effusion has had thoracentesis 2. Has some chronic loculation. Not a Candidate for anticoagulation because of lower GI bleeding. Also's had recurrent rectal bleeding because of radiation proctitis and anticoagulation. Has known radiation cystitis and does follow with Dr. Guzman. Does use a scooter at baseline. Lives at [facility]. Has been still smoking up to very recently. Patient was just in the hospital from December 27 through December 28 with a diagnosis of acute COPD exacerbation and tracheobronchitis. Patient normally uses a wheelchair. He was trying to transfer himself from his easy chair to the wheelchair. Lost his balance and fell down. Injuring his knee. Unable to get up. EMS was called out. Patient is having significant pain in the right knee not able to bend it. Admitted for the same. No fever no chills. Localized pain in the right knee. admitted with severe pain in the right knee. Patient felt to have hemarthrosis and about 15 mL of fluid was drained. Also steroid injection. Was done. 01/07/2020 This is a pleasant 85 years old male who presents with fall from his wheelchair and found to have hemarthrosis of his right knee status post respiration and intra-articular steroid injection by orthopedic team. His right knee is not swollen today however still painful as per patient especially on the lateral side about 10/10 however patient lying comfortable in bed does not look in distress. This is a patient is not feeling well and he complains from orthopnea. He has chronic history of right pleural effusion, chest x-ray from today it looks the same with slight worsening, all A service has been consulted. Also his creatinine went up to 2.1 today, his blood pressure is only low side, we worked his metoprolol from 75 down to 25 mg daily, also hold metformin. Patient currently is not on IV fluids however he is on Omnicef 300 mg twice daily. Also he is on oral Lasix 40 mg daily. 01/08/2020 Patient is fully awake and oriented, slightly dyspneic this morning with no wheezing. His Lasix was stopped so because of worsening creatinine from 2.1 up to 2.3, recommended by nephrology team. His midodrine was increased to 10 mg , photographs of flaps looks stable, blood pressure is slightly better today 103/64. Patient is afebrile [place] was admitted instead of IV pain medication. He remains on cefdinir Review of systems CONSTITUTIONAL: No fever, no malaise, no fatigue. HEENT: No recent visual problems or hearing problems. Denied any sore throat. CARDIOVASCULAR: no palpitations, no syncope. PULMONARY:no cough, no hemoptysis. GASTROINTESTINAL: No diarrhea, no nausea, no vomiting, no abdominal pain. Normoactive bowel sounds. NEUROLOGICAL: No headaches, no weakness, no numbness. HEMATOLOGICAL: Denies any bleeding or petechiae. GENITOURINARY: Denies any burning micturition, frequency, or urgency. ENDOCRINE: Denies any polyuria or polydipsia. Active Medications Generic Name Dose Route Start Last Admin Trade Name Freq PRN Reason Stop Dose Admin Acetaminophen 650 mg 01/03/20 21:22 01/08/20 03:27 Tylenol Tab PO 650 mg Q6HR PRN Administration Mild Pain or Fever > 100.5 Hydrocodone Bitart/Acetaminophen 1 each 01/08/20 11:20 [place] 5-325 PO Q6HR PRN Pain Al Hydroxide/Mg Hydroxide 15 ml 01/03/20 21:22 Maalox PO Q6HR PRN Indigestion Albuterol/Ipratropium 3 ml 01/06/20 18:02 01/08/20 10:54 Duoneb 0.5 Mg-3 Mg/3 Ml Soln INHALATION 3 ml RT-Q4H NAIMA Administration Alprazolam 0.25 mg 01/03/20 20:23 01/08/20 03:27 Xanax PO 0.25 mg Q6HR PRN Administration Anxiety Budesonide 1 mg 01/06/20 20:00 01/08/20 07:00 Pulmicort INHALATION 1 mg RT-BID NAIMA Administration Calcium Carbonate/Glycine 1,000 mg 01/03/20 21:22 Tums PO Q4HR PRN Dyspepsia Cefdinir 300 mg 01/04/20 09:00 01/08/20 10:59 Omnicef PO 300 mg BID NAIMA Administration Diclofenac Sodium 4 gm 01/04/20 13:30 01/08/20 11:09 Voltaren Gel TOPICAL 4 gm QID [facility] Administration Famotidine 20 mg 01/07/20 12:00 01/08/20 10:59 Pepcid IV 20 mg DAILY [facility] Administration Formoterol Fumarate 20 mcg 01/06/20 20:00 01/08/20 07:00 Perforomist INHALATION 20 mcg RT-BID [facility] Administration Furosemide 40 mg 01/04/20 08:00 01/08/20 11:02 Lasix PO Not Given DAILY@0800 [facility] Heparin Sodium (Porcine) 5,000 unit 01/07/20 21:00 01/08/20 11:00 Heparin SQ 5,000 unit Q12HR [facility] Administration Hydromorphone HCl 0.5 mg 01/03/20 20:23 01/08/20 01:38 Dilaudid IVP 0.5 mg Q3HR PRN Administration Moderate Pain IF NPO Insulin Aspart 0 unit 01/04/20 07:30 01/08/20 11:00 Novolog SQ 1 unit ACHS [facility] Administration Protocol Lactulose 20 gm 01/03/20 21:22 Cephulac PO DAILY PRN Constipation Latanoprost 1 drops 01/03/20 21:30 01/07/20 20:47 Xalatan 0.005% BOTH EYES 1 drops HS [facility] Administration Levothyroxine Sodium 112 mcg 01/04/20 08:00 01/08/20 11:09 Synthroid PO 112 mcg DAILY@0800 [facility] Administration Magnesium Hydroxide 2,400 mg 01/03/20 21:22 Milk Of Magnesia PO DAILY PRN Constipation Melatonin 3 mg 01/03/20 21:22 Melatonin PO HS PRN Insomnia Metoprolol Succinate 25 mg 01/08/20 08:00 01/08/20 10:59 Toprol Xl PO 25 mg DAILY@0800 [facility] Administration Midodrine 10 mg 01/08/20 12:30 01/08/20 11:01 Proamatine PO 10 mg AC-TID [facility] Administration Morphine Sulfate 4 mg 01/03/20 20:23 01/04/20 20:35 Morphine Sulfate (Inj) IV 4 mg Q4HR PRN Administration Severe Pain Naloxone HCl 0.2 mg 01/03/20 20:23 Narcan IV Q2M PRN Opioid Reversal Ondansetron HCl 4 mg 01/03/20 21:22 Zofran IVP Q8HR PRN Nausea And Vomiting Polyethylene Glycol 17 gm 01/03/20 21:21 Miralax PO DAILY PRN Constipation Objective - Vital Signs Vital signs: Vital Signs Temp 97.8 F 01/08/20 07:38 Pulse 70 01/08/20 11:07 Resp 17 01/08/20 07:38 BP 103/64 01/08/20 07:38 Pulse Ox 99 01/08/20 07:38 Intake & Output 01/07/20 01/08/20 01/08/20 18:59 06:59 18:59 Intake Total 1680 540 Output Total 115 Balance 1565 540 Intake: Oral 1680 540 Output: Post Void Residual 115 Other: Voiding Method Diaper Diaper # Voids 2 2 - Exam -GENERAL: The patient is alert and oriented x3, not in any acute distress. Thin built and generalized weakness HEENT: Pupils are round and equally reacting to light. EOMI. No scleral icterus. No conjunctival pallor. Normocephalic, atraumatic. No pharyngeal erythema. No thyromegaly. CARDIOVASCULAR: S1 and S2 present. No murmurs, rubs, or gallops. -PULMONARY: Chest is clear to auscultation, no wheezing or crackles. Right basal crepitation ABDOMEN: Soft, nontender, nondistended, normoactive bowel sounds. No palpable organomegaly. -MUSCULOSKELETAL: No joint swelling or deformity. Limited movement of the right knee due to pain, no swelling EXTREMITIES: No cyanosis, clubbing, or pedal edema. NEUROLOGICAL: Gross neurological examination did not reveal any focal deficits. SKIN: No rashes. no petechiae. - Labs CBC & Chem 7: 01/08/20 06:42 01/08/20 06:42 Labs: Abnormal Lab Results - Last 24 Hours (Table) 01/07/20 01/07/20 01/07/20 Range/Units 12:06 17:22 20:13 RBC (4.30-5.90) m/uL Hgb (13.0-17.5) gm/dL Hct (39.0-53.0) % MCV (80.0-100.0) fL MCH (25.0-35.0) pg Neutrophils # (1.3-7.7) k/uL Lymphocytes # (1.0-4.8) k/uL Macrocytosis Chloride (98-107) mmol/L Carbon Dioxide (22-30) mmol/L BUN (9-20) mg/dL Creatinine (0.66-1.25) mg/dL Glucose (74-99) mg/dL POC Glucose (mg/dL) 191 H 236 H 322 H (75-99) mg/dL Calcium (8.4-10.2) mg/dL 01/08/20 01/08/20 01/08/20 Range/Units 06:42 06:42 07:15 RBC 2.93 L (4.30-5.90) m/uL Hgb 11.0 L (13.0-17.5) gm/dL Hct 34.2 L (39.0-53.0) % MCV 116.9 H (80.0-100.0) fL MCH 37.6 H (25.0-35.0) pg Neutrophils # 8.8 H (1.3-7.7) k/uL Lymphocytes # 0.5 L (1.0-4.8) k/uL Macrocytosis Marked A Chloride 113 H (98-107) mmol/L Carbon Dioxide 19 L (22-30) mmol/L BUN 53 H (9-20) mg/dL Creatinine 2.32 H (0.66-1.25) mg/dL Glucose 149 H (74-99) mg/dL POC Glucose (mg/dL) 149 H (75-99) mg/dL Calcium 8.2 L (8.4-10.2) mg/dL Assessment and Plan Assessment: -Right knee hemarthrosis secondary to fall status post aspiration and steroid injection -Chronic right pleural effusion with slight worsening and orthopnea -Acute kidney injury -Low normal blood pressure -Fall -Generalized weakness -COPD in a current smoker -chronic right-sided pleural effusion with thoracentesis 2 in the past likely transudate with some loculated pleural effusion -Chronic nicotine dependence patient cigarette smoker -Essential hypertension -Diabetes mellitus type 2 on oral hypoglycemic -Chronic gait dysfunction uses a wheelchair -Persistent atrial fibrillation not a candidate for any anticoagulation -Chronic thoracic spine osteoarthritis -Hypothyroidism -GERD -Moderate to severe mitral regurgitation nonrheumatic -Severe tricuspid regurgitation nonrheumatic -Severe secondary pulmonary hypertension secondary to COPD Plan: This is a pleasant 85 years old male who presents with right knee hemarthrosis status post respiration. Also consult pulmonary for his chronic right pleural effusion. Kidney function is worse., Blood pressure medication, hold metformin and consult nephrology Labs and medication were reviewed.. Continue same treatment. Continue with symptomatic treatment. Resume home medication. Monitor lytes and vitals. DVT and GI prophylaxis. Further recommendations of the clinical course of the patient DVT prophylaxis: Subcutaneous heparin GI Prophylaxis: Pepcid PT/OT: Subacute rehab, medical social consultant consulted
[2020-01-08 11:57] LABS: Glucose,Whole Blood 293 mg/dL (75-99)
--- NOTE | 2020-01-08 12:09 | P.PN ---
Subjective Progress Note Date: 01/08/20 Principal diagnosis: Stable right-sided pleural effusion, A. fib with RVR On 01/08/2020 patient seen in follow-up on medical surgical floor. He states his breathing is comfortable, improved from yesterday, although yesterday he denied any shortness of breath, currently on 2 L of oxygen with pulse ox of 99%, afebrile, hemodynamically stable, denies any chest pain, no cough or congestion. Remains on maintenance dose of oral Lasix, and 40 mg daily. 2 days labs show worsening of renal function, with BUN at 53 and creatinine of 2.32, nephrology is following. Denies any nausea vomiting or diarrhea. He is tolerating oral intake, no leukocytosis, no fever or chills. His midodrine was increased to 10 mg. No altered mentation, patient is answering questions appropriately, he is receiving oral medications for his knee pain. Objective - Vital Signs Vital signs: Vital Signs Temp 97.8 F 01/08/20 07:38 Pulse 70 01/08/20 11:07 Resp 17 01/08/20 07:38 BP 103/64 01/08/20 07:38 Pulse Ox 99 01/08/20 07:38 Intake & Output 01/07/20 01/08/20 01/08/20 18:59 06:59 18:59 Intake Total 1680 540 Output Total 115 Balance 1565 540 Intake: Oral 1680 540 Output: Post Void Residual 115 Other: Voiding Method Diaper Diaper Diaper # Voids 2 2 - Exam GENERAL EXAM: Alert, very pleasant, 85-year-old white male, on 2 L oxygen comfortable in no apparent distress. HEAD: Normocephalic/atraumatic. EYES: Normal reaction of pupils, equal size. Conjunctiva pink, sclera white. NOSE: Clear with pink turbinates. THROAT: No erythema or exudates. NECK: No masses, no JVD, no thyroid enlargement, no adenopathy. CHEST: No chest wall deformity. Symmetrical expansion. LUNGS: Equal air entry with no crackles, wheeze, rhonchi or dullness. CVS: Regular rate and rhythm, normal S1 and S2, no gallops, no murmurs, no rubs ABDOMEN: Soft, nontender. No hepatosplenomegaly, normal bowel sounds, no guarding or rigidity. EXTREMITIES: No clubbing, no edema, no cyanosis, 2+ pulses and upper and lower extremities. MUSCULOSKELETAL: Muscle strength and tone normal. SPINE: No scoliosis or deformity SKIN: No rashes CENTRAL NERVOUS SYSTEM: Alert and oriented -3. No focal deficits, tone is normal in all 4 extremities. PSYCHIATRIC: Alert and oriented -3. Appropriate affect. Intact judgment and insight. - Labs CBC & Chem 7: 01/08/20 06:42 01/08/20 06:42 Labs: Abnormal Lab Results - Last 24 Hours (Table) 01/07/20 01/07/20 01/07/20 Range/Units 12:06 17:22 20:13 RBC (4.30-5.90) m/uL Hgb (13.0-17.5) gm/dL Hct (39.0-53.0) % MCV (80.0-100.0) fL MCH (25.0-35.0) pg Neutrophils # (1.3-7.7) k/uL Lymphocytes # (1.0-4.8) k/uL Macrocytosis Chloride (98-107) mmol/L Carbon Dioxide (22-30) mmol/L BUN (9-20) mg/dL Creatinine (0.66-1.25) mg/dL Glucose (74-99) mg/dL POC Glucose (mg/dL) 191 H 236 H 322 H (75-99) mg/dL Calcium (8.4-10.2) mg/dL 01/08/20 01/08/20 01/08/20 Range/Units 06:42 06:42 07:15 RBC 2.93 L (4.30-5.90) m/uL Hgb 11.0 L (13.0-17.5) gm/dL Hct 34.2 L (39.0-53.0) % MCV 116.9 H (80.0-100.0) fL MCH 37.6 H (25.0-35.0) pg Neutrophils # 8.8 H (1.3-7.7) k/uL Lymphocytes # 0.5 L (1.0-4.8) k/uL Macrocytosis Marked A Chloride 113 H (98-107) mmol/L Carbon Dioxide 19 L (22-30) mmol/L BUN 53 H (9-20) mg/dL Creatinine 2.32 H (0.66-1.25) mg/dL Glucose 149 H (74-99) mg/dL POC Glucose (mg/dL) 149 H (75-99) mg/dL Calcium 8.2 L (8.4-10.2) mg/dL 01/08/20 Range/Units 11:48 RBC (4.30-5.90) m/uL Hgb (13.0-17.5) gm/dL Hct (39.0-53.0) % MCV (80.0-100.0) fL MCH (25.0-35.0) pg Neutrophils # (1.3-7.7) k/uL Lymphocytes # (1.0-4.8) k/uL Macrocytosis Chloride (98-107) mmol/L Carbon Dioxide (22-30) mmol/L BUN (9-20) mg/dL Creatinine (0.66-1.25) mg/dL Glucose (74-99) mg/dL POC Glucose (mg/dL) 293 H (75-99) mg/dL Calcium (8.4-10.2) mg/dL Assessment and Plan Plan: Assessment: #1. Right knee injury/pain secondary to a fall #2. A. fib with RVR #3. Stable right-sided pleural effusion #4. History of atrial fibrillation not on chronic anticoagulation #5. History of prostate cancer status post external beam radiation #6. History of skin cancer #7. History of COPD #8. Diabetes mellitus with diabetic neuropathy #9. GERD/reflux #10. History of benign essential hypertension #11. History of GI bleeding #12. Radiation proctitis #13. History of diverticular disease #14. 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 Acute kidney injury related to ATN, nephrology is following #16. History of thyroid cancer status post resection maintained on supple mentation #17. Severe pulmonary hypertension and mild LV impairment with EF of 45-50% Plan: Continue current medical treatment, patient denies any worsening dyspnea, he is maintaining stable saturations on 2 L, nephrology is following regarding worsening kidney function, and patient continues on once daily maintenance dose of Lasix. No nausea vomiting or diarrhea, he is tolerating oral intake. No plans for thoracentesis, right-sided pleural effusion is chronic in nature, and is unchanged, we'll repeat chest x-ray tomorrow. Continue monitoring for worsening dyspnea. We'll continue to follow I performed a history & physical examination of the patient and discussed their management with my nurse practitioner, Sujatha Barron. I reviewed the nurse practitioner's note and agree with the documented findings and plan of care. Lung sounds are positive for diminished breath sounds at the bases throughout the lung graham. The findings and the impression was discussed with the patient. I attest to the documentation by the nurse practitioner. Time with Patient: Less than 30
[2020-01-08] MEDS: HYDROcodone/APAP 5-325MG 1 EACH TAB PO PRN (13:12)
--- NOTE | 2020-01-08 14:31 | PN ---
PROGRESS NOTE Patient is seen for followup for acute kidney injury. He was started on midodrine yesterday for ongoing hypotension, blood pressure still remains low. Patient has been incontinent; however, post voidal bladder scan was noted to have only about 115 mL of urine. Serum creatinine is at 2.3 today from 2.1 yesterday. However, patient has been voiding. PHYSICAL EXAMINATION: Today blood pressure was 105/59, heart rate 106 per minute, he is afebrile. Examination of the heart S1, S2. Examination of the lungs, decreased breath sounds at bases. Abdomen is soft, nontender. Examination of lower extremities shows swollen right knee. C [employer] exam cannot be assessed in detail. LABS: Show sodium 143, potassium 4.4, chloride 113, CO2 is 19, BUN 53, serum creatinine 2.32, hemoglobin 11.0 g/dL. ASSESSMENT: 1. Acute kidney injury, acute tubular necrosis, nonoliguric secondary to hypotension. Serum creatinine is a little bit higher from yesterday. However, patient remains nonoliguric. I will increase the midodrine and hold off on the Lasix for now. 2. Status post fall and right knee hemarthrosis, status post aspiration and intra- articular steroids. 3. Chronic right pleural effusion. 4. Chronic atrial fibrillation. 5. History of thyroid cancer status post surgery, maintained on supplementation. 6. Severe pulmonary hypertension associated with chronic obstructive pulmonary disease. 7. Cardiomyopathy, ejection fraction 45% to 50% in September of 2019 with severely dilated left atrium. PLAN: Increase midodrine. Hold off on Lasix. Repeat chest x-ray in a.m. MMSILVERL / IJN: [id number] /
[2020-01-08 17:21] LABS: Glucose,Whole Blood 87 mg/dL (75-99)
[2020-01-08] MEDS: LATANOPROST 0.005% OPHTH DROPS 2.5 ML BTL BOTH EYES SCH (20:18)
[2020-01-08 20:59] LABS: Glucose,Whole Blood 124 mg/dL (75-99)
[2020-01-09] MEDS: HYDROcodone/APAP 5-325MG 1 EACH TAB PO PRN (00:26)
[2020-01-09] MEDS: IPRATROPIUM-ALBUTEROL 3 ML NEB INHALATION SCH ×7 (01:21→23:26)
[2020-01-09 06:58] LABS: Glucose,Whole Blood 153 mg/dL (75-99)
[2020-01-09] MEDS: FORMOTEROL FUMARATE 20 MCG/2 ML NEBU INHALATION SCH ×2 (07:01→19:37)
[2020-01-09] MEDS: BUDESONIDE 1 MG/2 ML NEBU INHALATION SCH ×2 (07:01→19:37)
--- NOTE | 2020-01-09 07:44 | XR ---
EXAMINATION TYPE: XR chest 2V DATE OF EXAM: 01/09/2020 COMPARISON: Chest x-ray January 07, 2020. Chest CT September 27, 2019 HISTORY: Pleural effusion. TECHNIQUE: Frontal and lateral views of the chest are obtained. FINDINGS: Persistent cardiomegaly with atherosclerotic aorta. Persistent moderate right pleural effus ion and associated right lung atelectasis and/or infiltrate. Small to tiny left pleural effusion slig htly larger versus prior seen best on lateral view. Osseous structures remain demineralized. IMPRESSION: Persistent cardiomegaly and stable size moderate right pleural effusion with associated right basilar atelectasis and/or infiltrate. Small to tiny left pleural effusion noted increased in size from prior.
[2020-01-09 08:24] LABS: Calcium 8.3 mg/dL (8.4-10.2); Potassium 4.3 mmol/L (3.5-5.1)
--- NOTE | 2020-01-09 08:25 | P.PN ---
Subjective On-call hospitalist covering for Dr. Redman From records This is a very pleasant 85-year-old patient of Dr. Gee. Chronic stable medical conditions include diabetes, GERD, hypertension, hypothyroid, diverticulosis, osteoarthritis, atrial fibrillation, chronic right-sided pleural effusion has had thoracentesis 2. Has some chronic loculation. Not a Candidate for anticoagulation because of lower GI bleeding. Also's had recurrent rectal bleeding because of radiation proctitis and anticoagulation. Has known radiation cystitis and does follow with Dr. Guzman. Does use a scooter at baseline. Lives at [facility]. Has been still smoking up to very recently. Patient was just in the hospital from December 27 through December 28 with a diagnosis of acute COPD exacerbation and tracheobronchitis. Patient normally uses a wheelchair. He was trying to transfer himself from his easy chair to the wheelchair. Lost his balance and fell down. Injuring his knee. Unable to get up. EMS was called out. Patient is having significant pain in the right knee not able to bend it. Admitted for the same. No fever no chills. Localized pain in the right knee. admitted with severe pain in the right knee. Patient felt to have hemarthrosis and about 15 mL of fluid was drained. Also steroid injection. Was done. 01/07/2020 This is a pleasant 85 years old male who presents with fall from his wheelchair and found to have hemarthrosis of his right knee status post respiration and intra-articular steroid injection by orthopedic team. His right knee is not swollen today however still painful as per patient especially on the lateral side about 10/10 however patient lying comfortable in bed does not look in distress. This is a patient is not feeling well and he complains from orthopnea. He has chronic history of right pleural effusion, chest x-ray from today it looks the same with slight worsening, all A service has been consulted. Also his creatinine went up to 2.1 today, his blood pressure is only low side, we worked his metoprolol from 75 down to 25 mg daily, also hold metformin. Patient currently is not on IV fluids however he is on Omnicef 300 mg twice daily. Also he is on oral Lasix 40 mg daily. 01/08/2020 Patient is fully awake and oriented, slightly dyspneic this morning with no wheezing. His Lasix was stopped so because of worsening creatinine from 2.1 up to 2.3, recommended by nephrology team. His midodrine was increased to 10 mg , photographs of flaps looks stable, blood pressure is slightly better today 103/64. Patient is afebrile [place] was admitted instead of IV pain medication. He remains on cefdinir 12/09/2019 Patient is awake and alert, is complaining of from some pain in his right knee which is ongoing but no swelling or tenderness or redness. His breathing quietly with no chest pain or dyspnea. No coughing. Generally feels better.creatinine was trending up yesterday to 2.3, Lasix was stopped, creatinine from today's is still pending and we will follow up the level.his blood pressure is better today 113/81 after holding Lasix and increasing medial drain to 10 mg, also metoprolol lower from 75 to 25 mg daily Patient is tested for appropriate request of ECF, for rehab Objective - Vital Signs Vital signs: Vital Signs Temp 97.5 F L 01/09/20 05:00 Pulse 92 01/09/20 07:24 Resp 20 01/09/20 05:00 BP 113/81 01/09/20 05:00 Pulse Ox 100 01/09/20 05:00 Intake & Output 01/08/20 01/09/20 01/09/20 18:59 06:59 18:59 Intake Total 580 550 Balance 580 550 Intake: Oral 580 550 Other: Voiding Method Diaper Diaper # Voids 2 2 1 - Exam -GENERAL: The patient is alert and oriented x3, not in any acute distress. Thin built and generalized weakness HEENT: Pupils are round and equally reacting to light. EOMI. No scleral icterus. No conjunctival pallor. Normocephalic, atraumatic. No pharyngeal erythema. No thyromegaly. CARDIOVASCULAR: S1 and S2 present. No murmurs, rubs, or gallops. -PULMONARY: Chest is clear to auscultation, no wheezing or crackles. Right basal crepitation ABDOMEN: Soft, nontender, nondistended, normoactive bowel sounds. No palpable organomegaly. -MUSCULOSKELETAL: No joint swelling or deformity. Limited movement of the right knee due to pain, no swelling EXTREMITIES: No cyanosis, clubbing, or pedal edema. NEUROLOGICAL: Gross neurological examination did not reveal any focal deficits. SKIN: No rashes. no petechiae. - Labs CBC & Chem 7: 01/08/20 06:42 01/08/20 06:42 Labs: Abnormal Lab Results - Last 24 Hours (Table) 01/08/20 01/08/20 01/09/20 Range/Units 11:48 20:53 06:53 POC Glucose (mg/dL) 293 H 124 H 153 H (75-99) mg/dL Assessment and Plan Assessment: -Right knee hemarthrosis secondary to fall status post aspiration and steroid injection -Chronic right pleural effusion with slight worsening and orthopnea -Acute kidney injury -Low normal blood pressure -Fall -Generalized weakness -COPD in a current smoker -chronic right-sided pleural effusion with thoracentesis 2 in the past likely transudate with some loculated pleural effusion -Chronic nicotine dependence patient cigarette smoker -Essential hypertension -Diabetes mellitus type 2 on oral hypoglycemic -Chronic gait dysfunction uses a wheelchair -Persistent atrial fibrillation not a candidate for any anticoagulation -Chronic thoracic spine osteoarthritis -Hypothyroidism -GERD -Moderate to severe mitral regurgitation nonrheumatic -Severe tricuspid regurgitation nonrheumatic -Severe secondary pulmonary hypertension secondary to COPD Plan: This is a pleasant 85 years old male who presents with right knee hemarthrosis status post respiration. Also consult pulmonary for his chronic right pleural effusion. Kidney function is worse., Blood pressure medication, hold metformin and consult nephrology Labs and medication were reviewed.. Continue same treatment. Continue with symptomatic treatment. Resume home medication. Monitor lytes and vitals. DVT and GI prophylaxis. Further recommendations of the clinical course of the patient DVT prophylaxis: Subcutaneous heparin GI Prophylaxis: Pepcid PT/OT: Subacute rehab, community mental health social worker consulted
[2020-01-09] MEDS: INSULIN ASPART (NovoLOG) 100 UNIT/ML VIAL SQ SCH ×4 (09:13→21:28)
[2020-01-09] MEDS: HEPARIN SODIUM,PORCINE 5,000 UNIT/ML 1 ML VIAL SQ SCH ×2 (09:14→21:28)
[2020-01-09] MEDS: FAMOTIDINE 20 MG/2 ML VIAL IV SCH (09:14)
[2020-01-09] MEDS: MIDODRINE 5 MG TAB PO SCH ×3 (09:14→17:16)
[2020-01-09] MEDS: CEFDINIR 300 MG CAP PO SCH (09:15)
[2020-01-09] MEDS: LEVOTHYROXINE 112 MCG TAB PO SCH (09:15)
[2020-01-09] MEDS: DICLOFENAC SODIUM GEL 100 GM TUBE TOPICAL SCH ×4 (09:15→21:29)
[2020-01-09] MEDS: METOPROLOL SUCCINATE (ER) 25 MG TAB.ER.24H PO SCH (09:15)
--- NOTE | 2020-01-09 10:06 | P.PN ---
Subjective Progress Note Date: 01/09/20 Principal diagnosis: Stable right-sided pleural effusion, A. fib with RVR On 01/08/2020 patient seen in follow-up on medical surgical floor. He states his breathing is comfortable, improved from yesterday, although yesterday he denied any shortness of breath, currently on 2 L of oxygen with pulse ox of 99%, afebrile, hemodynamically stable, denies any chest pain, no cough or congestion. Remains on maintenance dose of oral Lasix, and 40 mg daily. 2 days labs show worsening of renal function, with BUN at 53 and creatinine of 2.32, nephrology is following. Denies any nausea vomiting or diarrhea. He is tolerating oral intake, no leukocytosis, no fever or chills. His midodrine was increased to 10 mg. No altered mentation, patient is answering questions appropriately, he is receiving oral medications for his knee pain. On 01/09/2020 patient seen in follow-up on the general medical floor. Follow-up chest x-ray was reviewed today with Dr. Hook, showing stable moderate right pleural effusion with associated right basilar atelectasis. Small to tiny left pleural effusion noted slightly increased in size from prior. Patient denies any shortness of breath, room air pulse ox of 100%, hemodynamically patient is stable, no fever or chills, lung sounds reveal diminished breath sounds at the right base, no couplets of chest pain, no cough or congestion. Renal profile continues to rise, with a BUN up to 54 and creatinine up to 2.51, nephrology is following. CO2 17, patient is being started on bicarbonate drip. Remains on midodrine 10 mg 3 times daily, did have some low blood pressures with systolic in the 80s yesterday, improved on today's vital signs, this morning blood pressure is 113/81. No nausea vomiting or diarrhea. Abdomen is distended and firm, but nontender, KUB of the abdomen is pending. Objective - Vital Signs Vital signs: Vital Signs Temp 97.5 F L 01/09/20 05:00 Pulse 92 01/09/20 07:24 Resp 20 01/09/20 05:00 BP 113/81 01/09/20 05:00 Pulse Ox 100 01/09/20 05:00 Intake & Output 01/08/20 01/09/20 01/09/20 18:59 06:59 18:59 Intake Total 580 550 Balance 580 550 Intake: Oral 580 550 Other: Voiding Method Diaper Diaper # Voids 2 2 1 - Exam GENERAL EXAM: Alert, very pleasant, 85-year-old white male, on room air pulse ox 100% HEAD: Normocephalic/atraumatic. EYES: Normal reaction of pupils, equal size. Conjunctiva pink, sclera white. NOSE: Clear with pink turbinates. THROAT: No erythema or exudates. NECK: No masses, no JVD, no thyroid enlargement, no adenopathy. CHEST: No chest wall deformity. Symmetrical expansion. LUNGS: Equal air entry with no crackles, wheeze, rhonchi or dullness. CVS: Regular rate and rhythm, normal S1 and S2, no gallops, no murmurs, no rubs ABDOMEN: Soft, nontender. No hepatosplenomegaly, normal bowel sounds, no guarding or rigidity. EXTREMITIES: No clubbing, no edema, no cyanosis, 2+ pulses and upper and lower extremities. MUSCULOSKELETAL: Muscle strength and tone normal. SPINE: No scoliosis or deformity SKIN: No rashes CENTRAL NERVOUS SYSTEM: Alert and oriented -3. No focal deficits, tone is normal in all 4 extremities. PSYCHIATRIC: Alert and oriented -3. Appropriate affect. Intact judgment and insight. - Labs CBC & Chem 7: 01/08/20 06:42 01/09/20 07:09 Labs: Abnormal Lab Results - Last 24 Hours (Table) 01/08/20 01/08/20 01/09/20 Range/Units 11:48 20:53 06:53 Chloride (98-107) mmol/L Carbon Dioxide (22-30) mmol/L BUN (9-20) mg/dL Creatinine (0.66-1.25) mg/dL Glucose (74-99) mg/dL POC Glucose (mg/dL) 293 H 124 H 153 H (75-99) mg/dL Calcium (8.4-10.2) mg/dL 01/09/20 Range/Units 07:09 Chloride 113 H (98-107) mmol/L Carbon Dioxide 17 L (22-30) mmol/L BUN 54 H (9-20) mg/dL Creatinine 2.51 H (0.66-1.25) mg/dL Glucose 129 H (74-99) mg/dL POC Glucose (mg/dL) (75-99) mg/dL Calcium 8.3 L (8.4-10.2) mg/dL Assessment and Plan Plan: Assessment: #1. Right knee injury/pain secondary to a fall #2. A. fib with RVR #3. Stable right-sided pleural effusion #4. History of atrial fibrillation not on chronic anticoagulation #5. History of prostate cancer status post external beam radiation #6. History of skin cancer #7. History of COPD #8. Diabetes mellitus with diabetic neuropathy #9. GERD/reflux #10. History of benign essential hypertension #11. History of GI bleeding #12. Radiation proctitis #13. History of diverticular disease #14. 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 Acute kidney injury related to ATN, nephrology is following #16. History of thyroid cancer status post resection maintained on supplementation #17. Severe pulmonary hypertension and mild LV impairment with EF of 45-50% Plan: Today's follow-up chest x-ray has been reviewed showing right-sided pleural effusion stable in size, no worsening dyspnea, patient is on room air, no plans for thoracentesis at this time. No complaints of chest pain, no fever or chills I performed a history & physical examination of the patient and discussed their management with my nurse practitioner, Sujatha Barron. I reviewed the nurse practitioner's note and agree with the documented findings and plan of care. Lung sounds are positive for diminished breath sounds at the bases throughout the lung graham. The findings and the impression was discussed with the patient. I attest to the documentation by the nurse practitioner. Time with Patient: Less than 30
--- NOTE | 2020-01-09 10:27 | XR ---
EXAMINATION TYPE: XR KUB DATE OF EXAM: 01/09/2020 Comparison: 09/06/2015 Clinical History: 85-year-old male abdominal distention Findings: Unable to exclude right basilar opacity. Final imaging for assessment of free air. No dilated small b owel. Mildly air distended left-sided colon measuring up to 6.3 cm. Moderate stool in the right abdom en. Brachytherapy seeds within the prostate gland. Coils from previous abdominal wall mesh repair. Impression: 1. Mild distention of the descending colon up to 6.3 cm could be transient or could represent a regio nal ileus. 2. Nonobstructive bowel gas pattern. 3. Supine imaging limited for assessment of free air. 4. Right basilar pleural effusion with atelectasis and/or consolidation.
[2020-01-09] MEDS: DEXTROSE 5% IN WATER 1,000 ML with SODIUM BICARB (1 MEQ/ML) 150 ML IV SCH (11:08)
[2020-01-09 11:39] LABS: Glucose,Whole Blood 298 mg/dL (75-99)
--- NOTE | 2020-01-09 14:14 | PN ---
PROGRESS NOTE Patient is seen for followup for acute kidney injury. Patient had been quite hypotensive and his serum creatinine has been slowly increasing, although he continues to have urine output but he is incontinent. There was no evidence of urine retention. Midodrine was started and his systolic blood pressure has currently improved. There are no nephrotoxic agents on board. Lasix was held yesterday. PHYSICAL EXAMINATION: On examination today, blood pressure was 113/66, heart rate 60 per minute, he is afebrile. Examination shows no evidence of edema of lower extremities. [employer] exam is grossly intact. Patient does not appear to be hypervolemic. LABS: Show sodium 142, potassium 4.3, chloride 113, CO2 is 17, BUN 54, serum creatinine 2.5. ASSESSMENT: 1. Acute kidney injury secondary to hypotension hypoperfusion currently nonoliguric with improved hemodynamics while on midodrine. I will add gentle IV hydration. Continue to hold off on the Lasix for now. No evidence of obstruction on the ultrasound. 2. Right knee hemarthrosis, status post arthrocentesis and intra-articular steroids. 3. Metabolic acidosis, non gap secondary to renal failure. 4. Generalized weakness. 5. Moderate to severe mitral regurgitation and severe tricuspid regurgitation. 6. Severe secondary pulmonary hypertension from COPD. PLAN: Add gentle IV hydration in the form of IV bicarb. Continue with the midodrine. Repeat labs in a.m. MMSILVERL / SKYEN: [id number] /
[2020-01-09 17:17] LABS: Glucose,Whole Blood 167 mg/dL (75-99)
[2020-01-09 21:25] LABS: Glucose,Whole Blood 139 mg/dL (75-99)
[2020-01-09] MEDS: LATANOPROST 0.005% OPHTH DROPS 2.5 ML BTL BOTH EYES SCH (21:28)
[2020-01-10] MEDS: IPRATROPIUM-ALBUTEROL 3 ML NEB INHALATION SCH ×5 (05:06→19:41)
[2020-01-10 06:50] LABS: Glucose,Whole Blood 180 mg/dL (75-99)
[2020-01-10] MEDS: FORMOTEROL FUMARATE 20 MCG/2 ML NEBU INHALATION SCH ×2 (07:02→19:41)
[2020-01-10] MEDS: BUDESONIDE 1 MG/2 ML NEBU INHALATION SCH ×2 (07:03→19:41)
[2020-01-10 07:43] LABS: Calcium 8.3 mg/dL (8.4-10.2); Potassium 4.2 mmol/L (3.5-5.1)
[2020-01-10] MEDS ORDERED: CEFDINIR 300 MG CAP PO SCH (09:00)
--- NOTE | 2020-01-10 09:10 | P.PN ---
Subjective On-call hospitalist covering for Dr. Redman From records This is a very pleasant 85-year-old patient of Dr. Gee. Chronic stable medical conditions include diabetes, GERD, hypertension, hypothyroid, diverticulosis, osteoarthritis, atrial fibrillation, chronic right-sided pleural effusion has had thoracentesis 2. Has some chronic loculation. Not a Candidate for anticoagulation because of lower GI bleeding. Also's had recurrent rectal bleeding because of radiation proctitis and anticoagulation. Has known radiation cystitis and does follow with Dr. Guzman. Does use a scooter at baseline. Lives at [facility]. Has been still smoking up to very recently. Patient was just in the hospital from December 27 through December 28 with a diagnosis of acute COPD exacerbation and tracheobronchitis. Patient normally uses a wheelchair. He was trying to transfer himself from his easy chair to the wheelchair. Lost his balance and fell down. Injuring his knee. Unable to get up. EMS was called out. Patient is having significant pain in the right knee not able to bend it. Admitted for the same. No fever no chills. Localized pain in the right knee. admitted with severe pain in the right knee. Patient felt to have hemarthrosis and about 15 mL of fluid was drained. Also steroid injection. Was done. 01/07/2020 This is a pleasant 85 years old male who presents with fall from his wheelchair and found to have hemarthrosis of his right knee status post respiration and intra-articular steroid injection by orthopedic team. His right knee is not swollen today however still painful as per patient especially on the lateral side about 10/10 however patient lying comfortable in bed does not look in distress. This is a patient is not feeling well and he complains from orthopnea. He has chronic history of right pleural effusion, chest x-ray from today it looks the same with slight worsening, all A service has been consulted. Also his creatinine went up to 2.1 today, his blood pressure is only low side, we worked his metoprolol from 75 down to 25 mg daily, also hold metformin. Patient currently is not on IV fluids however he is on Omnicef 300 mg twice daily. Also he is on oral Lasix 40 mg daily. 01/08/2020 Patient is fully awake and oriented, slightly dyspneic this morning with no wheezing. His Lasix was stopped so because of worsening creatinine from 2.1 up to 2.3, recommended by nephrology team. His midodrine was increased to 10 mg , photographs of flaps looks stable, blood pressure is slightly better today 103/64. Patient is afebrile [place] was admitted instead of IV pain medication. He remains on cefdinir 12/09/2019 Patient is awake and alert, is complaining of from some pain in his right knee which is ongoing but no swelling or tenderness or redness. His breathing quietly with no chest pain or dyspnea. No coughing. Generally feels better.creatinine was trending up yesterday to 2.3, Lasix was stopped, creatinine from today's is still pending and we will follow up the level.his blood pressure is better today 113/81 after holding Lasix and increasing medial drain to 10 mg, also metoprolol lower from 75 to 25 mg daily Patient is tested for appropriate request of ECF, for rehab 12/10/2019 Patient is awake and alert but he is lethargic. He has no chest pain or dyspnea he did not complain from abdominal pain. His knee pain is better. His creatinine is improving today down to 2.4 from 2.5, he remains on bicarb drip and nephrology on the case. His abdomen distended with no significant tenderness or rebound tenderness, we'll do CT of the abdomen without contrast. Patient does not have bowel movement but also has not eaten well. We stopped the antibiotics have called the test is came back negative and detected been are as patient is afebrile with no leukocytosis. He remains on midodrine 10 mg, metoprolol 25 mg. Metformin is on hold Lasix is on hold. Discussed the case with the staff and nephrology team. CONSTITUTIONAL: No fever, no malaise. HEENT: No recent visual problems or hearing problems. Denied any sore throat. CARDIOVASCULAR: No orthopnea, PND, no palpitations, no syncope. PULMONARY: No shortness of breath, no cough, no hemoptysis. NEUROLOGICAL: No headaches, no weakness, no numbness. GENITOURINARY: Denies any burning micturition, frequency, or urgency. Active Medications Generic Name Dose Route Start Last Admin Trade Name Freq PRN Reason Stop Dose Admin Acetaminophen 650 mg 01/03/20 21:22 01/08/20 03:27 Tylenol Tab PO 650 mg Q6HR PRN Administration Mild Pain or Fever > 100.5 Hydrocodone Bitart/Acetaminophen 1 each 01/08/20 11:20 01/09/20 00:26 [place] 5-325 PO 1 each Q6HR PRN Administration MODERATE Pain IF TAKING PO MED Al Hydroxide/Mg Hydroxide 15 ml 01/03/20 21:22 Maalox PO Q6HR PRN Indigestion Albuterol/Ipratropium 3 ml 01/06/20 18:02 01/10/20 07:03 Duoneb 0.5 Mg-3 Mg/3 Ml Soln INHALATION 3 ml RT-Q4H NAIMA Administration Alprazolam 0.25 mg 01/03/20 20:23 01/08/20 03:27 Xanax PO 0.25 mg Q6HR PRN Administration Anxiety Budesonide 1 mg 01/06/20 20:00 01/10/20 07:03 Pulmicort INHALATION 1 mg RT-BID NAIMA Administration Calcium Carbonate/Glycine 1,000 mg 01/03/20 21:22 Tums PO Q4HR PRN Dyspepsia Diclofenac Sodium 4 gm 01/04/20 13:30 01/09/20 21:29 Voltaren Gel TOPICAL 4 gm QID NAIMA Administration Famotidine 20 mg 01/07/20 12:00 01/09/20 09:14 Pepcid IV 20 mg DAILY NAIMA Administration Formoterol Fumarate 20 mcg 01/06/20 20:00 01/10/20 07:02 Perforomist INHALATION 20 mcg RT-BID NAIMA Administration Heparin Sodium (Porcine) 5,000 unit 01/07/20 21:00 01/09/20 21:28 Heparin SQ 5,000 unit Q12HR NAIMA Administration Hydromorphone HCl 0.5 mg 01/03/20 20:23 01/08/20 01:38 Dilaudid IVP 0.5 mg Q3HR PRN Administration Moderate Pain IF NPO Sodium Bicarbonate 150 ml/ 1,150 mls @ 50 mls/hr 01/09/20 10:00 01/09/20 11:08 Dextrose/Water IV 50 mls/hr .Q23H NAIMA Administration Insulin Aspart 0 unit 01/04/20 07:30 01/09/20 21:28 Novolog SQ 1 unit ACHS NAIMA Administration Protocol Iopamidol 30 ml 01/10/20 08:34 Isovue-300 (For Oral Use) PO 01/11/20 08:[address] Scan Lactulose 20 gm 01/03/20 21:22 Cephulac PO DAILY PRN Constipation Latanoprost 1 drops 01/03/20 21:30 01/09/20 21:28 Xalatan 0.005% BOTH EYES 1 drops HS NAIMA Administration Levothyroxine Sodium 112 mcg 01/04/20 08:00 01/09/20 09:15 Synthroid PO 112 mcg DAILY@0800 [facility] Administration Magnesium Hydroxide 2,400 mg 01/03/20 21:22 Milk Of Magnesia PO DAILY PRN Constipation Melatonin 3 mg 01/03/20 21:22 Melatonin PO HS PRN Insomnia Metoprolol Succinate 25 mg 01/08/20 08:00 01/09/20 09:15 Toprol Xl PO 25 mg DAILY@0800 [facility] Administration Midodrine 10 mg 01/08/20 12:30 01/09/20 17:16 Proamatine PO 10 mg AC-TID [facility] Administration Morphine Sulfate 4 mg 01/03/20 20:23 01/04/20 20:35 Morphine Sulfate (Inj) IV 4 mg Q4HR PRN Administration Severe Pain Naloxone HCl 0.2 mg 01/03/20 20:23 Narcan IV Q2M PRN Opioid Reversal Ondansetron HCl 4 mg 01/03/20 21:22 Zofran IVP Q8HR PRN Nausea And Vomiting Polyethylene Glycol 17 gm 01/03/20 21:21 Miralax PO DAILY PRN Constipation Objective - Vital Signs Vital signs: Vital Signs Temp 97.7 F 01/10/20 05:00 Pulse 98 01/10/20 07:27 Resp 14 01/10/20 05:00 BP 100/67 01/10/20 05:00 Pulse Ox 98 01/10/20 07:04 Intake & Output 01/09/20 01/10/20 01/10/20 18:59 06:59 18:59 Other: Voiding Method Diaper Diaper # Voids 1 2 - Exam -GENERAL: The patient is alert and oriented x2-3, lethargic and slow. not in any acute distress. Thin built and generalized weakness HEENT: Pupils are round and equally reacting to light. EOMI. No scleral icterus. No conjunctival pallor. Normocephalic, atraumatic. No pharyngeal erythema. No thyromegaly. CARDIOVASCULAR: S1 and S2 present. No murmurs, rubs, or gallops. -PULMONARY: Chest is clear to auscultation, no wheezing or crackles. Right basal crepitation ABDOMEN: Soft, nontender, nondistended, normoactive bowel sounds. No palpable organomegaly. -MUSCULOSKELETAL: No joint swelling or deformity. Limited movement of the right knee due to pain, no swelling EXTREMITIES: No cyanosis, clubbing, or pedal edema. NEUROLOGICAL: Gross neurological examination did not reveal any focal deficits. SKIN: No rashes. no petechiae. - Labs CBC & Chem 7: 01/08/20 06:42 01/10/20 07:13 Labs: Abnormal Lab Results - Last 24 Hours (Table) 01/09/20 01/09/20 01/09/20 Range/Units 11:19 17:12 21:23 Chloride (98-107) mmol/L Carbon Dioxide (22-30) mmol/L BUN (9-20) mg/dL Creatinine (0.66-1.25) mg/dL Glucose (74-99) mg/dL POC Glucose (mg/dL) 298 H 167 H 139 H (75-99) mg/dL Calcium (8.4-10.2) mg/dL 01/10/20 01/10/20 Range/Units 06:49 07:13 Chloride 112 H (98-107) mmol/L Carbon Dioxide 20 L (22-30) mmol/L BUN 57 H (9-20) mg/dL Creatinine 2.48 H (0.66-1.25) mg/dL Glucose 152 H (74-99) mg/dL POC Glucose (mg/dL) 180 H (75-99) mg/dL Calcium 8.3 L (8.4-10.2) mg/dL Assessment and Plan Assessment: -Right knee hemarthrosis secondary to fall status post aspiration and steroid injection -Chronic right pleural effusion with slight worsening and orthopnea -Acute kidney injury -Low normal blood pressure -Fall -Metabolic encephalopathy secondary to above -Generalized weakness -COPD in a current smoker -chronic right-sided pleural effusion with thoracentesis 2 in the past likely transudate with some loculated pleural effusion -Chronic nicotine dependence patient cigarette smoker -Essential hypertension -Diabetes mellitus type 2 on oral hypoglycemic -Chronic gait dysfunction uses a wheelchair -Persistent atrial fibrillation not a candidate for any anticoagulation -Chronic thoracic spine osteoarthritis -Hypothyroidism -GERD -Moderate to severe mitral regurgitation nonrheumatic -Severe tricuspid regurgitation nonrheumatic -Severe secondary pulmonary hypertension secondary to COPD Plan: This is a pleasant 85 years old male who presents with right knee hemarthrosis status post respiration. Pulmonary nephrology on the case. Continue with bicarb drip, continue with medial drain, continue with low dose of metoprolol. Continue with holding metformin and Lasix. Check CT of the abdomen and pelvis without contrast. Labs and medication were reviewed.. Continue same treatment. Continue with symptomatic treatment. Resume home medication. Monitor lytes and vitals. DVT and GI prophylaxis. Further recommendations of the clinical course of the patient DVT prophylaxis: Subcutaneous heparin GI Prophylaxis: Pepcid PT/OT: Subacute rehab Prognosis is guarded
[2020-01-10] MEDS: IOPAMIDOL CONTRAST (ORAL USE) VIAL PO PRN ×2 (10:01→10:34)
[2020-01-10] MEDS: HEPARIN SODIUM,PORCINE 5,000 UNIT/ML 1 ML VIAL SQ SCH ×2 (10:02→20:06)
[2020-01-10] MEDS: FAMOTIDINE 20 MG/2 ML VIAL IV SCH (10:02)
[2020-01-10] MEDS: LEVOTHYROXINE 112 MCG TAB PO SCH (10:03)
[2020-01-10] MEDS: MIDODRINE 5 MG TAB PO SCH ×3 (10:03→18:03)
[2020-01-10] MEDS: METOPROLOL SUCCINATE (ER) 25 MG TAB.ER.24H PO SCH (10:03)
[2020-01-10] MEDS: DICLOFENAC SODIUM GEL 100 GM TUBE TOPICAL SCH ×4 (10:04→20:15)
[2020-01-10] MEDS: INSULIN ASPART (NovoLOG) 100 UNIT/ML VIAL SQ SCH ×4 (10:09→20:15)
--- NOTE | 2020-01-10 10:47 | P.PN ---
Subjective Progress Note Date: 01/10/20 Principal diagnosis: Stable right-sided pleural effusion, A. fib with RVR On 01/08/2020 patient seen in follow-up on medical surgical floor. He states his breathing is comfortable, improved from yesterday, although yesterday he denied any shortness of breath, currently on 2 L of oxygen with pulse ox of 99%, afebrile, hemodynamically stable, denies any chest pain, no cough or congestion. Remains on maintenance dose of oral Lasix, and 40 mg daily. 2 days labs show worsening of renal function, with BUN at 53 and creatinine of 2.32, nephrology is following. Denies any nausea vomiting or diarrhea. He is tolerating oral intake, no leukocytosis, no fever or chills. His midodrine was increased to 10 mg. No altered mentation, patient is answering questions appropriately, he is receiving oral medications for his knee pain. On 01/09/2020 patient seen in follow-up on the general medical floor. Follow-up chest x-ray was reviewed today with Dr. Hook, showing stable moderate right pleural effusion with associated right basilar atelectasis. Small to tiny left pleural effusion noted slightly increased in size from prior. Patient denies any shortness of breath, room air pulse ox of 100%, hemodynamically patient is stable, no fever or chills, lung sounds reveal diminished breath sounds at the right base, no couplets of chest pain, no cough or congestion. Renal profile continues to rise, with a BUN up to 54 and creatinine up to 2.51, nephrology is following. CO2 17, patient is being started on bicarbonate drip. Remains on midodrine 10 mg 3 times daily, did have some low blood pressures with systolic in the 80s yesterday, improved on today's vital signs, this morning blood pressure is 113/81. No nausea vomiting or diarrhea. Abdomen is distended and firm, but nontender, KUB of the abdomen is pending. On 01/10/2020 patient seen in follow-up on the general medical floor, his abdomen is still sore on today's exam, but distended, and tympanic, but bowel sounds are present, and patient states he has been passing gas, no nausea or vomiting, he is tolerating oral diet. KUB of the abdomen showed mild distention of the descending colon up to 6.3 cm that could represent a regional ileus, nonobstructive bowel gas pattern, and right basilar pleural effusion with atelectasis. A pulmonary perspective his breathing is stable, no worsening dyspnea, he does remain on oxygen on 2 L, the pulse ox of 98%, no cough, no wheezing, lung sounds are diminished at the bases. Yesterday the chest x-ray showed stable in appearance right sided pleural effusion and we did not recommend a thoracentesis at this time. Today's labs have been reviewed, renal profile is relatively stable, with BUN of 57, and creatinine of 2.48, CO2 is 20, patient remains on bicarbonate infusion at [address] abdomen abdomen is pending. Nephrology is following Objective - Vital Signs Vital signs: Vital Signs Temp 97.7 F 01/10/20 05:00 Pulse 98 01/10/20 07:27 Resp 14 01/10/20 05:00 BP 100/67 01/10/20 05:00 Pulse Ox 98 01/10/20 07:04 Intake & Output 01/09/20 01/10/20 01/10/20 18:59 06:59 18:59 Other: Voiding Method Diaper Diaper # Voids 1 2 - Exam GENERAL EXAM: Alert, very pleasant, 85-year-old white male, on 2 L of oxygen pulse ox of 100% HEAD: Normocephalic/atraumatic. EYES: Normal reaction of pupils, equal size. Conjunctiva pink, sclera white. NOSE: Clear with pink turbinates. THROAT: No erythema or exudates. NECK: No masses, no JVD, no thyroid enlargement, no adenopathy. CHEST: No chest wall deformity. Symmetrical expansion. LUNGS: Equal air entry with no crackles, wheeze, rhonchi or dullness. CVS: Regular rate and rhythm, normal S1 and S2, no gallops, no murmurs, no rubs ABDOMEN: Soft, nontender. No hepatosplenomegaly, normal bowel sounds, no guarding or rigidity. EXTREMITIES: No clubbing, no edema, no cyanosis, 2+ pulses and upper and lower extremities. MUSCULOSKELETAL: Muscle strength and tone normal. SPINE: No scoliosis or deformity SKIN: No rashes CENTRAL NERVOUS SYSTEM: Alert and oriented -3. No focal deficits, tone is normal in all 4 extremities. PSYCHIATRIC: Alert and oriented -3. Appropriate affect. Intact judgment and insight. - Labs CBC & Chem 7: 01/08/20 06:42 01/10/20 07:13 Labs: Abnormal Lab Results - Last 24 Hours (Table) 01/09/20 01/09/20 01/09/20 Range/Units 11:19 17:12 21:23 Chloride (98-107) mmol/L Carbon Dioxide (22-30) mmol/L BUN (9-20) mg/dL Creatinine (0.66-1.25) mg/dL Glucose (74-99) mg/dL POC Glucose (mg/dL) 298 H 167 H 139 H (75-99) mg/dL Calcium (8.4-10.2) mg/dL 01/10/20 01/10/20 Range/Units 06:49 07:13 Chloride 112 H (98-107) mmol/L Carbon Dioxide 20 L (22-30) mmol/L BUN 57 H (9-20) mg/dL Creatinine 2.48 H (0.66-1.25) mg/dL Glucose 152 H (74-99) mg/dL POC Glucose (mg/dL) 180 H (75-99) mg/dL Calcium 8.3 L (8.4-10.2) mg/dL Assessment and Plan Plan: Assessment: #1. Right knee injury/pain secondary to a fall #2. A. fib with RVR #3. Stable right-sided pleural effusion #4. History of atrial fibrillation not on chronic anticoagulation #5. History of prostate cancer status post external beam radiation #6. History of skin cancer #7. History of COPD #8. Diabetes mellitus with diabetic neuropathy #9. GERD/reflux #10. History of benign essential hypertension #11. History of GI bleeding #12. Radiation proctitis #13. History of diverticular disease #14. 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 Acute kidney injury related to ATN, nephrology is following #16. History of thyroid cancer status post resection maintained on supplementation #17. Severe pulmonary hypertension and mild LV impairment with EF of 45-50% #18. Abdominal distention and pain, and KUB of the abdomen showing a nonobstructive gas pattern with mild distention of the descending colon, possible regional ileus Plan: No worsening dyspnea, patient is on supplemental oxygen, continue stable O2 saturations, vital signs are stable, CT of the abdomen is pending for continued abdominal distention and pain, KUB of the abdomen did not show obstructive gas pattern. No nausea vomiting and diarrhea, from pulmonary perspective no plans for thoracentesis at this time, we will continue to monitor the patient for any worsening dyspnea I performed a history & physical examination of the patient and discussed their management with my nurse practitioner, Sujatha Barron. I reviewed the nurse practitioner's note and agree with the documented findings and plan of care. Lung sounds are positive for diminished breath sounds at the bases throughout the lung graham. The findings and the impression was discussed with the patient. I attest to the documentation by the nurse practitioner. Time with Patient: Less than 30
[2020-01-10 11:47] LABS: Glucose,Whole Blood 237 mg/dL (75-99)
--- NOTE | 2020-01-10 12:39 | CT ---
EXAMINATION TYPE: CT abdomen pelvis wo con DATE OF EXAM: 01/10/2020 COMPARISON: CT chest 09/27/2019, CT pelvis 02/01/2013 HISTORY: 85-year-old male with pain, rule out ileus CT DLP: 452.8 mGycm. Automated exposure control for dose reduction was used. TECHNIQUE: Contiguous axial scanning of the abdomen and pelvis without IV contrast. Coronal and sagit dion reconstructions performed. FINDINGS: Heart upper limits of normal in size. Extensive three-vessel coronary artery calcifications are prese nt. Moderate atherosclerotic calcifications throughout the aorta. Calcified subcarinal right hilar ly mph nodes compatible with prior granulomatous disease. Moderate to large right pleural effusion with adjacent volume loss and consolidation. Some of these a reas have a masslike configuration, increased from 06/15/2019, measuring up to 5.3 cm posteriorly, ax ial image 8, and 3.8 cm anteriorly, axial image 12. Rounded atelectasis is suspected. Small left pleural effusion. There is confluent subcutaneous anasarca. Anasarca change within the intra-abdominal fat as well. Noncontrast appearance of the liver, gallbladder, adrenal glands, kidneys, and atrophic pancreas show no gross abnormality. Multiple calcified granulomas of the spleen with a hilar splenule. Ventral abdominal wall mesh repair. Moderate to severe atherosclerotic calcifications throughout. Tor tuous abdominal aorta. Ectatic right and left common iliac arteries measuring up to 1.7 and 1.6 cm, r espectively. Small bowel loops measure up to 2.1 cm. Oral contrast progressed to the ileum but not yet into the co rich. No dilated small bowel or free air. There is moderate stool burden with scattered colonic divert iculosis. No definite pericolonic inflammatory change. Bladder is distended with stable right posterolateral pedunculated bladder wall diverticulum measurin g 4.5 cm. Mild circumferential bladder wall thickening. Prior resection and reanastomosis along the d istal sigmoid. Presacral edema. Mild circumferential rectal wall thickening, rectum distended up to 5 .4 cm wide. Multiple pelvic phleboliths. Brachytherapy seeds embedded in the prostate gland. Bones: Osteopenia. Degenerative change of the hips. IMPRESSION: 1. Severe generalized anasarca change. Moderate to large right and small left pleural effusions. Cor relate for fluid overload state. 2. Masslike areas of volume loss and consolidation at the right base, suspect areas of rounded atele ctasis. Follow-up contrast enhanced CT chest in 4-6 weeks following successful treatment. 3. Generalized colonic diverticulosis. No definite acute diverticulitis. No specific CT findings of bowel obstruction or ileus. 4. Mild circumferential rectal wall thickening could relate to fluid overload changes. Correlate to exclude a nonspecific distal colitis. 5. Mild circumferential bladder wall thickening could reflect posttreatment change, cystitis, or chr onic bladder wall hypertrophy. Stable 5.4 cm bladder wall diverticulum projecting towards the right.
--- NOTE | 2020-01-10 15:03 | PN ---
PROGRESS NOTE Patient is seen for followup for acute kidney injury. Currently patient is maintained on IV fluids. He was started on bicarb drip yesterday. His renal function seems to have improved. Serum creatinine is down to 2.48 from 2.5 yesterday. Patient has had good urine output. He is currently awake. Mentation seems to have improved. PHYSICAL EXAMINATION: On examination today, blood pressure was 109/68, heart rate 110 per minute, he is afebrile. Examination of the heart S1, S2. Examination of the lungs, bilateral breath sounds are heard. Abdomen is soft, nontender. Examination of the lower extremities shows no significant edema. [employer] exam shows patient is moving all 4 extremities. LABS: Show sodium 142, potassium 4.2, chloride 112, CO2 is 20, BUN 57, serum creatinine 2.48. ASSESSMENT: 1. Acute kidney injury ATN associated with hypotension, hypoperfusion currently somewhat improved. Continue with the gentle IV hydration. 2. Metabolic acidosis, improved with IV bicarb. 3. Hypotension, maintained on midodrine, cortisol was not low. 4. Abdominal distention, status post CT of the abdomen, the report is currently pending. 5. The right knee hemarthrosis, status post aspiration and intra-articular steroids. 6. From pulmonary hypertension secondary to COPD. 7. Moderate to severe mitral regurgitation and severe tricuspid regurg. PLAN: Continue with IV bicarb. Continue with midodrine repeat labs in a.m. Continue to avoid nephrotoxic agents. Follow up on results of the CT of the abdomen. MMODL / IJN: [id number] /
[2020-01-10] MEDS: ALPRAZolam 0.25 MG TAB PO PRN (15:34)
[2020-01-10 17:07] LABS: Glucose,Whole Blood 100 mg/dL (75-99)
[2020-01-10] MEDS: DEXTROSE 5% IN WATER 1,000 ML with SODIUM BICARB (1 MEQ/ML) 150 ML IV SCH (17:18)
[2020-01-10] MEDS: LATANOPROST 0.005% OPHTH DROPS 2.5 ML BTL BOTH EYES SCH (20:06)
[2020-01-10 20:13] LABS: Glucose,Whole Blood 179 mg/dL (75-99)
[2020-01-11] MEDS: IPRATROPIUM-ALBUTEROL 3 ML NEB INHALATION SCH ×6 (00:58→19:18)
[2020-01-11 06:15] LABS: Appearance,Urine Turbid (Clear); Bilirubin,Urine Negative (Negative); Blood,Urine Moderate (Negative); Color,Urine Yellow; Glucose,Urine (UA) Negative (Negative); Hyaline Casts,Urine 25 /lpf (0-2); Hyphae Yeast, Urine Occasional /hpf; Ketones,Urine Negative (Negative); Leukocyte Esterase,Urine Large (Negative); Mucus,Urine Rare /hpf; Nitrite,Urine Negative (Negative); PH, Urine 5.5 (5.0-8.0); Protein,Urine 2+ (Negative); RBC,Urine 67 /hpf (0-5); Specific Gravity,Urine 1.015 (1.001-1.035); Urobilinogen,Urine <2.0 mg/dL (<2.0); WBC,Urine >182 /hpf (0-5)
[2020-01-11 06:56] LABS: Basophils % (A) 0 %; Eosinophils # (A) 0.1 k/uL (0-0.7); Eosinophils % (A) 1 %; HCT 34.6 % (39.0-53.0); HGB 11.1 gm/dL (13.0-17.5); Hypochromasia Marked; Lymphocytes # (A) 0.6 k/uL (1.0-4.8); Lymphocytes % (A) 9 %; MCH 37.5 pg (25.0-35.0); MCV 117.3 fL (80.0-100.0); Macrocytosis Marked; Mean Platelet Volume 8.9; Monocytes # (A) 0.3 k/uL (0-1.0); Monocytes % (A) 4 %; Neutrophils % (A) 84 %; Platelet Count 235 k/uL (150-450); RBC 2.95 m/uL (4.30-5.90); RDW 15.5 % (11.5-15.5); WBC 7.1 k/uL (3.8-10.6)
[2020-01-11 07:04] LABS: Calcium 8.4 mg/dL (8.4-10.2); Magnesium 2.1 mg/dL (1.6-2.3); Potassium 5.1 mmol/L (3.5-5.1)
[2020-01-11 07:04] LABS: Glucose,Whole Blood 138 mg/dL (75-99)
[2020-01-11] MEDS: FORMOTEROL FUMARATE 20 MCG/2 ML NEBU INHALATION SCH ×2 (07:35→19:18)
[2020-01-11] MEDS: BUDESONIDE 1 MG/2 ML NEBU INHALATION SCH ×2 (07:36→19:19)
--- NOTE | 2020-01-11 07:55 | US ---
EXAMINATION TYPE: US chest DATE OF EXAM: 01/11/2020 COMPARISON: CXR CLINICAL HISTORY: Markings for thoracentesis by pulmonary staff. Effusion TECHNIQUE: Targeted ultrasound of the posterior lower bilateral hemithoraces EXAM MEASUREMENTS: Right Pleural Effusion pocket size: 13.8 cm Right skin surface to fluid distance: 4.0 cm Right side marked for possible thoracentesis outside the dept. Left side NOT marked for possible thoracentesis outside the dept. Pulmonologists are able to review the images in the patient?s EMR. IMPRESSIONS: 1. Bilateral pleural effusions more sizable on the right.
--- NOTE | 2020-01-11 10:11 | P.PN ---
Subjective On-call hospitalist covering for Dr. Redman From records This is a very pleasant 85-year-old patient of Dr. Gee. Chronic stable medical conditions include diabetes, GERD, hypertension, hypothyroid, diverticulosis, osteoarthritis, atrial fibrillation, chronic right-sided pleural effusion has had thoracentesis 2. Has some chronic loculation. Not a Candidate for anticoagulation because of lower GI bleeding. Also's had recurrent rectal bleeding because of radiation proctitis and anticoagulation. Has known radiation cystitis and does follow with Dr. Guzman. Does use a scooter at baseline. Lives at [facility]. Has been still smoking up to very recently. Patient was just in the hospital from December 27 through December 28 with a diagnosis of acute COPD exacerbation and tracheobronchitis. Patient normally uses a wheelchair. He was trying to transfer himself from his easy chair to the wheelchair. Lost his balance and fell down. Injuring his knee. Unable to get up. EMS was called out. Patient is having significant pain in the right knee not able to bend it. Admitted for the same. No fever no chills. Localized pain in the right knee. admitted with severe pain in the right knee. Patient felt to have hemarthrosis and about 15 mL of fluid was drained. Also steroid injection. Was done. 01/07/2020 This is a pleasant 85 years old male who presents with fall from his wheelchair and found to have hemarthrosis of his right knee status post respiration and intra-articular steroid injection by orthopedic team. His right knee is not swollen today however still painful as per patient especially on the lateral side about 10/10 however patient lying comfortable in bed does not look in distress. This is a patient is not feeling well and he complains from orthopnea. He has chronic history of right pleural effusion, chest x-ray from today it looks the same with slight worsening, all A service has been consulted. Also his creatinine went up to 2.1 today, his blood pressure is only low side, we worked his metoprolol from 75 down to 25 mg daily, also hold metformin. Patient currently is not on IV fluids however he is on Omnicef 300 mg twice daily. Also he is on oral Lasix 40 mg daily. 01/08/2020 Patient is fully awake and oriented, slightly dyspneic this morning with no wheezing. His Lasix was stopped so because of worsening creatinine from 2.1 up to 2.3, recommended by nephrology team. His midodrine was increased to 10 mg , photographs of flaps looks stable, blood pressure is slightly better today 103/64. Patient is afebrile [place] was admitted instead of IV pain medication. He remains on cefdinir 12/09/2019 Patient is awake and alert, is complaining of from some pain in his right knee which is ongoing but no swelling or tenderness or redness. His breathing quietly with no chest pain or dyspnea. No coughing. Generally feels better.creatinine was trending up yesterday to 2.3, Lasix was stopped, creatinine from today's is still pending and we will follow up the level.his blood pressure is better today 113/81 after holding Lasix and increasing medial drain to 10 mg, also metoprolol lower from 75 to 25 mg daily Patient is tested for appropriate request of ECF, for rehab 12/10/2019 Patient is awake and alert but he is lethargic. He has no chest pain or dyspnea he did not complain from abdominal pain. His knee pain is better. His creatinine is improving today down to 2.4 from 2.5, he remains on bicarb drip and nephrology on the case. His abdomen distended with no significant tenderness or rebound tenderness, we'll do CT of the abdomen without contrast. Patient does not have bowel movement but also has not eaten well. We stopped the antibiotics have called the test is came back negative and detected been are as patient is afebrile with no leukocytosis. He remains on midodrine 10 mg, metoprolol 25 mg. Metformin is on hold Lasix is on hold. Discussed the case with the staff and nephrology team. 12/11/2019 Patient will confused today. CAT scan of the abdomen done yesterday was showing masslike consolidation which is increasing in size thought to be atelectasis, with moderate to large right pleural effusion, also has anasarca. No dilated bowel or air-fluid level there is mild rectal wall thickening and distended to 5.4 cm and there was possible of cystitis with bladder wall thickening. Urine culture is highly suspicious of abnormality and infection, urine culture has been sent and patient was started on Zosyn. Patient has no diarrhea. Bladder scan was ordered. Is slightly tachycardic. Blood pressure 108/73. creatinine stable at 2.5, rest of cbc and bmp is unremarkable, no leukocytosis with wbc of 7.1k. Patient is currently is on bicarb drip, we will discuss with nephrology team about the fluid management Review of system: Patient could not provide information Active Medications Generic Name Dose Route Start Last Admin Trade Name Freq PRN Reason Stop Dose Admin Acetaminophen 650 mg 01/03/20 21:22 01/08/20 03:27 Tylenol Tab PO 650 mg Q6HR PRN Administration Mild Pain or Fever > 100.5 Hydrocodone Bitart/Acetaminophen 1 each 01/08/20 11:20 01/09/20 00:26 [place] 5-325 PO 1 each Q6HR PRN Administration MODERATE Pain IF TAKING PO MED Al Hydroxide/Mg Hydroxide 15 ml 01/03/20 21:22 Maalox PO Q6HR PRN Indigestion Albuterol/Ipratropium 3 ml 01/06/20 18:02 01/11/20 07:35 Duoneb 0.5 Mg-3 Mg/3 Ml Soln INHALATION 3 ml RT-Q4H NAIMA Administration Alprazolam 0.25 mg 01/03/20 20:23 01/10/20 15:34 Xanax PO 0.25 mg Q6HR PRN Administration Anxiety Budesonide 1 mg 01/06/20 20:00 01/11/20 07:36 Pulmicort INHALATION 1 mg RT-BID NAIMA Administration Calcium Carbonate/Glycine 1,000 mg 01/03/20 21:22 Tums PO Q4HR PRN Dyspepsia Diclofenac Sodium 4 gm 01/04/20 13:30 01/10/20 20:15 Voltaren Gel TOPICAL 4 gm QID NAIMA Administration Famotidine 20 mg 01/07/20 12:00 01/10/20 10:02 Pepcid IV 20 mg DAILY NAIMA Administration Formoterol Fumarate 20 mcg 01/06/20 20:00 01/11/20 07:35 Perforomist INHALATION 20 mcg RT-BID NAIMA Administration Heparin Sodium (Porcine) 5,000 unit 01/07/20 21:00 01/10/20 20:06 Heparin SQ 5,000 unit Q12HR NAIMA Administration Hydromorphone HCl 0.5 mg 01/03/20 20:23 01/08/20 01:38 Dilaudid IVP 0.5 mg Q3HR PRN Administration Moderate Pain IF NPO Sodium Bicarbonate 150 ml/ 1,150 mls @ 50 mls/hr 01/09/20 10:00 01/10/20 17:18 Dextrose/Water IV Not Given .Q23H [facility] Piperacillin Sod/Tazobactam 100 mls @ 25 mls/hr 01/11/20 10:00 Sod 3.375 gm/ Sodium Chloride IVPB Q8H [facility] Insulin Aspart 0 unit 01/04/20 07:30 01/10/20 20:15 Novolog SQ 2 unit ACHS [facility] Administration Protocol Lactulose 20 gm 01/03/20 21:22 Cephulac PO DAILY PRN Constipation Latanoprost 1 drops 01/03/20 21:30 01/10/20 20:06 Xalatan 0.005% BOTH EYES 1 drops HS [facility] Administration Levothyroxine Sodium 112 mcg 01/04/20 08:00 01/10/20 10:03 Synthroid PO 112 mcg DAILY@0800 [facility] Administration Magnesium Hydroxide 2,400 mg 01/03/20 21:22 Milk Of Magnesia PO DAILY PRN Constipation Melatonin 3 mg 01/03/20 21:22 Melatonin PO HS PRN Insomnia Metoprolol Succinate 25 mg 01/08/20 08:00 01/10/20 10:03 Toprol Xl PO 25 mg DAILY@0800 [facility] Administration Midodrine 10 mg 01/08/20 12:30 01/10/20 18:03 Proamatine PO 10 mg AC-TID [facility] Administration Morphine Sulfate 4 mg 01/03/20 20:23 01/04/20 20:35 Morphine Sulfate (Inj) IV 4 mg Q4HR PRN Administration Severe Pain Naloxone HCl 0.2 mg 01/03/20 20:23 Narcan IV Q2M PRN Opioid Reversal Ondansetron HCl 4 mg 01/03/20 21:22 Zofran IVP Q8HR PRN Nausea And Vomiting Polyethylene Glycol 17 gm 01/03/20 21:21 Miralax PO DAILY PRN Constipation Objective - Vital Signs Vital signs: Vital Signs Temp 97.6 F 01/11/20 05:55 Pulse 105 H 01/11/20 08:00 Resp 12 01/11/20 05:55 BP 108/73 01/11/20 05:55 Pulse Ox 100 01/11/20 05:55 Intake & Output 01/10/20 01/11/20 01/11/20 18:59 06:59 18:59 Output Total 700 Balance -700 Weight 68.5 kg Output: Urine 350 Post Void Residual 350 Other: Voiding Method Diaper Diaper # Voids 3 3 # Bowel Movements 0 - Exam -GENERAL: The patient is confused and slow. not in any acute distress. Thin built and generalized weakness HEENT: Pupils are round and equally reacting to light. EOMI. No scleral icterus. No conjunctival pallor. Normocephalic, atraumatic. No pharyngeal erythema. No thyromegaly. CARDIOVASCULAR: S1 and S2 present. No murmurs, rubs, or gallops. -PULMONARY: Chest is clear to auscultation, no wheezing or crackles. Right basal crepitation ABDOMEN: Soft, nontender, nondistended, normoactive bowel sounds. No palpable organomegaly. -MUSCULOSKELETAL: No joint swelling or deformity. Limited movement of the right knee due to pain, no swelling EXTREMITIES: No cyanosis, clubbing, or pedal edema. NEUROLOGICAL: Gross neurological examination did not reveal any focal deficits. SKIN: No rashes. no petechiae. - Labs CBC & Chem 7: 01/11/20 06:31 01/11/20 06:31 Labs: Abnormal Lab Results - Last 24 Hours (Table) 01/10/20 01/10/20 01/10/20 Range/Units 11:45 17:05 20:11 RBC (4.30-5.90) m/uL Hgb (13.0-17.5) gm/dL Hct (39.0-53.0) % MCV (80.0-100.0) fL MCH (25.0-35.0) pg Lymphocytes # (1.0-4.8) k/uL Macrocytosis Chloride (98-107) mmol/L BUN (9-20) mg/dL Creatinine (0.66-1.25) mg/dL Glucose (74-99) mg/dL POC Glucose (mg/dL) 237 H 100 H 179 H (75-99) mg/dL Urine Protein (Negative) Urine Blood (Negative) Ur Leukocyte Esterase (Negative) Urine RBC (0-5) /hpf Urine WBC (0-5) /hpf Urine WBC Clumps (None) /hpf Hyaline Casts (0-2) /lpf Urine Mucus (None) /hpf 01/11/20 01/11/20 01/11/20 Range/Units 05:55 06:31 06:31 RBC 2.95 L (4.30-5.90) m/uL Hgb 11.1 L (13.0-17.5) gm/dL Hct 34.6 L (39.0-53.0) % MCV 117.3 H (80.0-100.0) fL MCH 37.5 H (25.0-35.0) pg Lymphocytes # 0.6 L (1.0-4.8) k/uL Macrocytosis Marked A Chloride 112 H (98-107) mmol/L BUN 62 H (9-20) mg/dL Creatinine 2.53 H (0.66-1.25) mg/dL Glucose 127 H (74-99) mg/dL POC Glucose (mg/dL) (75-99) mg/dL Urine Protein 2+ H (Negative) Urine Blood Moderate H (Negative) Ur Leukocyte Esterase Large H (Negative) Urine RBC 67 H (0-5) /hpf Urine WBC >182 H (0-5) /hpf Urine WBC Clumps Many H (None) /hpf Hyaline Casts 25 H (0-2) /lpf Urine Mucus Rare H (None) /hpf 01/11/20 Range/Units 07:03 RBC (4.30-5.90) m/uL Hgb (13.0-17.5) gm/dL Hct (39.0-53.0) % MCV (80.0-100.0) fL MCH (25.0-35.0) pg Lymphocytes # (1.0-4.8) k/uL Macrocytosis Chloride (98-107) mmol/L BUN (9-20) mg/dL Creatinine (0.66-1.25) mg/dL Glucose (74-99) mg/dL POC Glucose (mg/dL) 138 H (75-99) mg/dL Urine Protein (Negative) Urine Blood (Negative) Ur Leukocyte Esterase (Negative) Urine RBC (0-5) /hpf Urine WBC (0-5) /hpf Urine WBC Clumps (None) /hpf Hyaline Casts (0-2) /lpf Urine Mucus (None) /hpf Assessment and Plan Assessment: -Worsening Chronic right pleural effusion with slight worsening and orthopnea. CAT scan showing masslike atelectasis. Ultrasound showing bilateral pleural effusion more on the right -Acute K date UTI -Right knee hemarthrosis secondary to fall status post aspiration and steroid injection -Acute kidney injury -Low normal blood pressure -Fall -Metabolic encephalopathy secondary to above -Generalized weakness -COPD in a current smoker -chronic right-sided pleural effusion with thoracentesis 2 in the past likely transudate with some loculated pleural effusion -Chronic nicotine dependence patient cigarette smoker -Essential hypertension -Diabetes mellitus type 2 on oral hypoglycemic -Chronic gait dysfunction uses a wheelchair -Persistent atrial fibrillation not a candidate for any anticoagulation -Chronic thoracic spine osteoarthritis -Hypothyroidism -GERD -Moderate to severe mitral regurgitation nonrheumatic -Severe tricuspid regurgitation nonrheumatic -Severe secondary pulmonary hypertension secondary to COPD Plan: This is a pleasant 85 years old male who presents with right knee hemarthrosis status post respiration. Pulmonary nephrology on the case. Continue with bicarb drip, continue with medial drain, continue with low dose of metoprolol. Continue with holding metformin and Lasix. Start Zosyn follow-up urine culture. Labs and medication were reviewed.. Continue same treatment. Continue with symptomatic treatment. Resume home medication. Monitor lytes and vitals. DVT and GI prophylaxis. Further recommendations of the clinical course of the patient DVT prophylaxis: Subcutaneous heparin GI Prophylaxis: Pepcid PT/OT: Subacute rehab Prognosis is guarded
[2020-01-11] MEDS: INSULIN ASPART (NovoLOG) 100 UNIT/ML VIAL SQ SCH ×4 (10:52→20:17)
[2020-01-11] MEDS: FAMOTIDINE 20 MG/2 ML VIAL IV SCH (10:56)
[2020-01-11] MEDS: HEPARIN SODIUM,PORCINE 5,000 UNIT/ML 1 ML VIAL SQ SCH ×2 (10:56→20:17)
[2020-01-11] MEDS: MIDODRINE 5 MG TAB PO SCH ×3 (10:57→17:53)
[2020-01-11] MEDS: PIPERACILLIN-TAZOBACTAM 3.375 GM in SODIUM CHLORIDE 0.9% 100 ML IVPB SCH ×2 (10:57→17:52)
[2020-01-11] MEDS: METOPROLOL SUCCINATE (ER) 25 MG TAB.ER.24H PO SCH (10:57)
[2020-01-11] MEDS: LEVOTHYROXINE 112 MCG TAB PO SCH (10:58)
[2020-01-11] MEDS: DICLOFENAC SODIUM GEL 100 GM TUBE TOPICAL SCH ×4 (10:58→23:01)
[2020-01-11 11:14] LABS: Glucose,Whole Blood 252 mg/dL (75-99)
--- NOTE | 2020-01-11 11:15 | XR ---
EXAMINATION TYPE: XR chest 1V DATE OF EXAM: 01/11/2020 COMPARISON: 01/09/2020 INDICATION: Postthoracentesis TECHNIQUE: Single frontal view of the chest is obtained. FINDINGS: The heart size is mildly prominent. The pulmonary vasculature is normal. There is a small right pleural effusion. No pneumothorax is evident. Some mild densities at the left costophrenic angle. IMPRESSION: 1. No pneumothorax postthoracentesis
--- NOTE | 2020-01-11 11:52 | P.PN ---
Subjective Progress Note Date: 01/11/20 Principal diagnosis: Right-sided pleural effusion, A. fib with RVR Patient is seen today 01/11/2020 in follow-up on the regular medical floor. He is currently awake and alert in no acute distress. He is maintaining O2 saturations up to 100% on 3 L/m per nasal cannula. He's been afebrile. Urine culture pending. White count 7.1. Hemoglobin 11.1. Sodium 142. Potassium 5.1 . Creatinine 2.53. He is currently on Zosyn and bronchodilators. Ultrasound of the chest reveals a 13.8 cm right pleural effusion. He did undergo a right- sided thoracentesis today with 1.2 L of straw-colored fluid removed. Fluid analysis and cytology pending. Chest x-ray revealed no pneumothorax post thoracentesis. Objective - Vital Signs Vital signs: Vital Signs Temp 97.6 F 01/11/20 05:55 Pulse 106 H 01/11/20 11:25 Resp 12 01/11/20 05:55 BP 108/73 01/11/20 05:55 Pulse Ox 100 01/11/20 05:55 Intake & Output 01/10/20 01/11/20 01/11/20 18:59 06:59 18:59 Output Total 700 Balance -700 Weight 68.5 kg Output: Urine 350 Post Void Residual 350 Other: Voiding Method Diaper Diaper # Voids 3 3 # Bowel Movements 0 - Exam GENERAL EXAM: Alert, frail, cachectic, 85-year-old male patient, on 3 L of oxygen pulse ox of 100% HEAD: Normocephalic/atraumatic. EYES: Normal reaction of pupils, equal size. Conjunctiva pink, sclera white. NOSE: Clear with pink turbinates. THROAT: No erythema or exudates. NECK: No masses, no JVD, no thyroid enlargement, no adenopathy. CHEST: No chest wall deformity. Symmetrical expansion. LUNGS: Equal air entry with crackles, diminished in the right lung base CVS: Regular rate and rhythm, normal S1 and S2, no gallops, no murmurs, no rubs ABDOMEN: Soft, nontender. No hepatosplenomegaly, normal bowel sounds, no guarding or rigidity. EXTREMITIES: No clubbing, no edema, no cyanosis, 2+ pulses and upper and lower extremities. MUSCULOSKELETAL: Muscle strength and tone normal. SPINE: Kyphoscoliosis SKIN: No rashes CENTRAL NERVOUS SYSTEM: No focal deficits, tone is normal in all 4 extremities. PSYCHIATRIC: Alert and oriented -3. Appropriate affect. Intact judgment and insight. - Labs CBC & Chem 7: 01/11/20 06:31 01/11/20 06:31 Labs: Abnormal Lab Results - Last 24 Hours (Table) 01/10/20 01/10/20 01/10/20 Range/Units 11:45 17:05 20:11 RBC (4.30-5.90) m/uL Hgb (13.0-17.5) gm/dL Hct (39.0-53.0) % MCV (80.0-100.0) fL MCH (25.0-35.0) pg Lymphocytes # (1.0-4.8) k/uL Macrocytosis Chloride (98-107) mmol/L BUN (9-20) mg/dL Creatinine (0.66-1.25) mg/dL Glucose (74-99) mg/dL POC Glucose (mg/dL) 237 H 100 H 179 H (75-99) mg/dL Urine Protein (Negative) Urine Blood (Negative) Ur Leukocyte Esterase (Negative) Urine RBC (0-5) /hpf Urine WBC (0-5) /hpf Urine WBC Clumps (None) /hpf Hyaline Casts (0-2) /lpf Urine Mucus (None) /hpf 01/11/20 01/11/20 01/11/20 Range/Units 05:55 06:31 06:31 RBC 2.95 L (4.30-5.90) m/uL Hgb 11.1 L (13.0-17.5) gm/dL Hct 34.6 L (39.0-53.0) % MCV 117.3 H (80.0-100.0) fL MCH 37.5 H (25.0-35.0) pg Lymphocytes # 0.6 L (1.0-4.8) k/uL Macrocytosis Marked A Chloride 112 H (98-107) mmol/L BUN 62 H (9-20) mg/dL Creatinine 2.53 H (0.66-1.25) mg/dL Glucose 127 H (74-99) mg/dL POC Glucose (mg/dL) (75-99) mg/dL Urine Protein 2+ H (Negative) Urine Blood Moderate H (Negative) Ur Leukocyte Esterase Large H (Negative) Urine RBC 67 H (0-5) /hpf Urine WBC >182 H (0-5) /hpf Urine WBC Clumps Many H (None) /hpf Hyaline Casts 25 H (0-2) /lpf Urine Mucus Rare H (None) /hpf 01/11/20 01/11/20 Range/Units 07:03 11:13 RBC (4.30-5.90) m/uL Hgb (13.0-17.5) gm/dL Hct (39.0-53.0) % MCV (80.0-100.0) fL MCH (25.0-35.0) pg Lymphocytes # (1.0-4.8) k/uL Macrocytosis Chloride (98-107) mmol/L BUN (9-20) mg/dL Creatinine (0.66-1.25) mg/dL Glucose (74-99) mg/dL POC Glucose (mg/dL) 138 H 252 H (75-99) mg/dL Urine Protein (Negative) Urine Blood (Negative) Ur Leukocyte Esterase (Negative) Urine RBC (0-5) /hpf Urine WBC (0-5) /hpf Urine WBC Clumps (None) /hpf Hyaline Casts (0-2) /lpf Urine Mucus (None) /hpf Microbiology - Last 24 Hours (Table) 01/11/20 05:55 Urine Culture - Preliminary Urine,Catheterized Assessment and Plan Assessment: #1. Right knee injury/pain secondary to a fall #2. A. fib with RVR #3. Right-sided pleural effusion, status post thoracentesis with 1.2 L straw-colored fluid removed on 01/11/2020 #4. History of atrial fibrillation not on chronic anticoagulation #5. History of prostate cancer status post external beam radiation #6. History of skin cancer #7. History of COPD #8. Diabetes mellitus with diabetic neuropathy #9. GERD/reflux #10. History of benign essential hypertension #11. History of GI bleeding #12. Radiation proctitis #13. History of diverticular disease #14. 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 Acute kidney injury related to ATN, nephrology is following #16. History of thyroid cancer status post resection maintained on supplementation #17. Severe pulmonary hypertension and mild LV impairment with EF of 45-50% #18. Abdominal distention and pain, and KUB of the abdomen showing a nonobstructive gas pattern with mild distention of the descending colon, possible regional ileus Plan: The patient was seen and evaluated by Dr. Hook He did go ahead and perform a right-sided thoracentesis 1200 mL of straw-colored fluid removed, analysis and cytology pending Titrate down the FiO2 as tolerated Follow up chest x-ray shows improvement and no pneumothorax Increase his activity as tolerated We'll continue to follow I, the cosigning physician, performed a history & physical examination of the patient. Lungs sounds with crackles, diminished in the right lung base. Maintaining good O2 saturations in the 90s on 3 L/m per nasal cannula. I discussed the assessment and plan of care with my nurse practitioner, Radha Champion. I attest to the above note as dictated by her.
[2020-01-11] MEDS: DEXTROSE 5% IN WATER 1,000 ML with SODIUM BICARB (1 MEQ/ML) 150 ML IV SCH (14:29)
[2020-01-11 16:44] LABS: Appearance,BF Clear; Color,BF Yellow; Nucleated Cells, Body Fluid 28 /uL; RBC, Body Fluid 140 /uL
[2020-01-11 16:57] LABS: Mononuclear WBC,Body Fluid 92 %; Polynuclear WBC,Body Fluid 8 %; Total Cells Counted,Body Fluid 100
--- NOTE | 2020-01-11 17:01 | PN ---
PROGRESS NOTE Patient is seen for followup for acute kidney injury. He was admitted to the hospital status post fall with right knee hemarthrosis. Renal function had improved slightly with creatinine going down to 2.4 from 2.5 mg/dL. However, today his creatinine is back up to 2.5 and initial creatinine was as low as 1.27. There is no urine retention on a previous postvoid scan. Blood pressure had been on the lower side. Patient is currently maintained on midodrine. Currently, his systolic pressure has been staying above 100 mmHg. PHYSICAL EXAMINATION: On examination today, patient is lying in bed, he is comfortable, not in any acute distress. Blood pressure is 108/73, heart rate of 106 per minute, patient is afebrile. Examination of the heart S1, S2. Examination of the lungs, bilateral breath sounds are heard. Abdomen is soft, nontender. Examination of the lower extremities shows no significant edema. Right knee is swollen but improved. LABS: Show sodium 142, potassium 5.1, chloride 112, CO2 is 22, BUN 62, creatinine 2.53. UA shows more than 182 WBCs. Hemoglobin was 11.1 g/dL. ASSESSMENT: 1. Acute kidney injury, appears to be mostly acute tubular necrosis, associated with hypotension, hypoperfusion, although renal function is not improving significantly with holding diuretics and improved systolic and blood pressures and patient is also maintained on IV fluids. His repeat postvoid residual was slightly on the higher side. At 350 we will continue to monitor for urine retention. 2. Metabolic acidosis secondary to renal failure, maintained on bicarb drip. 3. Abdominal distention, status post CT of the abdomen which shows thickening of the urinary bladder with chronic wall hypertrophy and masslike effect on the right lung base. PLAN: Continue with the bicarb drip. Monitor for urine retention closely. I will check urine for eosinophiles as there is no growth on the urine cultures so far. Patient could have steroid pyuria. MMODL / IJN: [id number] /
[2020-01-11 17:13] LABS: Glucose,Whole Blood 273 mg/dL (75-99)
--- NOTE | 2020-01-11 17:14 | PCN ---
PROCEDURE NOTE PROCEDURE: Right-sided thoracentesis. PREOPERATIVE DIAGNOSIS: Right pleural effusion. POSTOPERATIVE DIAGNOSIS: Right pleural effusion. There was informed consent. A time-out was completed verifying correct patient, procedure, site, positioning , and implant (s) or special equipment if applicable. Ultrasound guidance was/was not used and appropriate fluid pocket was identified and marked. Patient was positioned, prepped and draped in usual sterile fashion. Lidocaine was used to anesthetize the area. A Thoracentesis catheter was introduced into the pleural space and fluid was removed. Blood loss was none. A chest x-ray was ordered after the procedure to make sure there was no pneumothorax. Total Fluid Removed: 1200 mL Color of Fluid: Yellow Fluid was sent for analysis including chemistry, cytology and microbiology. Patient tolerated the procedure well and there were no immediate complications. The right posterior chest was marked by ultrasound. The patient tolerated the procedure well. OPERATORS: Dr. Hook and Dr. Champion. Again, 1200 mL of yellow fluid removed. MMODL / IJN: [id number] /
[2020-01-11] MEDS: LATANOPROST 0.005% OPHTH DROPS 2.5 ML BTL BOTH EYES SCH (20:16)
[2020-01-11 20:36] LABS: Glucose,Whole Blood 207 mg/dL (75-99)
[2020-01-12] MEDS: IPRATROPIUM-ALBUTEROL 3 ML NEB INHALATION SCH ×5 (01:16→19:24)
[2020-01-12] MEDS: PIPERACILLIN-TAZOBACTAM 3.375 GM in SODIUM CHLORIDE 0.9% 100 ML IVPB SCH ×3 (01:51→18:40)
[2020-01-12 04:58] LABS: Glucose, BF Source Pleural Fluid; Glucose, Body Fluid 140 mg/dL; LDH, Body Fluid Source Pleural Fluid
[2020-01-12] MEDS: DEXTROSE 5% IN WATER 1,000 ML with SODIUM BICARB (1 MEQ/ML) 150 ML IV SCH (05:54)
[2020-01-12 06:48] LABS: Glucose,Whole Blood 240 mg/dL (75-99)
[2020-01-12] MEDS: FORMOTEROL FUMARATE 20 MCG/2 ML NEBU INHALATION SCH ×2 (07:46→19:22)
[2020-01-12] MEDS: BUDESONIDE 1 MG/2 ML NEBU INHALATION SCH ×2 (07:46→19:23)
[2020-01-12 07:49] LABS: Basophils % (A) 0 %; Eosinophils # (A) 0.1 k/uL (0-0.7); Eosinophils % (A) 1 %; HCT 33.2 % (39.0-53.0); HGB 10.3 gm/dL (13.0-17.5); Hypochromasia Moderate; Lymphocytes # (A) 0.7 k/uL (1.0-4.8); Lymphocytes % (A) 9 %; MCH 35.9 pg (25.0-35.0); MCV 115.8 fL (80.0-100.0); Macrocytosis Marked; Mean Platelet Volume 9.2; Monocytes # (A) 0.3 k/uL (0-1.0); Monocytes % (A) 5 %; Neutrophils # (A) 5.9 k/uL (1.3-7.7); Neutrophils % (A) 84 %; Platelet Count 204 k/uL (150-450); RBC 2.87 m/uL (4.30-5.90); RDW 15.7 % (11.5-15.5)
[2020-01-12 08:03] LABS: Calcium 8.5 mg/dL (8.4-10.2); Potassium 4.7 mmol/L (3.5-5.1)
[2020-01-12] MEDS: FAMOTIDINE 20 MG/2 ML VIAL IV SCH (09:56)
[2020-01-12] MEDS: HEPARIN SODIUM,PORCINE 5,000 UNIT/ML 1 ML VIAL SQ SCH ×2 (09:56→20:14)
[2020-01-12] MEDS: INSULIN ASPART (NovoLOG) 100 UNIT/ML VIAL SQ SCH ×4 (09:56→20:14)
[2020-01-12] MEDS: LEVOTHYROXINE 112 MCG TAB PO SCH (09:57)
[2020-01-12] MEDS: METOPROLOL SUCCINATE (ER) 25 MG TAB.ER.24H PO SCH (09:57)
[2020-01-12] MEDS: DICLOFENAC SODIUM GEL 100 GM TUBE TOPICAL SCH ×4 (09:58→20:15)
[2020-01-12] MEDS: MIDODRINE 5 MG TAB PO SCH ×3 (09:59→18:39)
[2020-01-12 11:14] LABS: Glucose,Whole Blood 302 mg/dL (75-99)
--- NOTE | 2020-01-12 13:12 | PN ---
PROGRESS NOTE PULMONARY/CRITICAL CARE PROGRESS NOTE: DATE OF SERVICE: 01/12/2020 This is an 85-year-old gentleman with a history of multiple medical problems including right knee injury, atrial fibrillation with RVR, right-sided pleural effusion, status post thoracentesis with 1.2 L removed yesterday, atrial fibrillation, prostate cancer, skin cancer, COPD, diabetes, GERD, among other medical issues. Anyway, the patient is doing about the same. States today that he wants to go home. Not a particularly good historian. Not very talkative. Very withdrawn. The patient did have a right-sided thoracentesis yesterday and 1.2 L of fluid was removed from the right pleural space and sent to the laboratory for analysis. PHYSICAL EXAMINATION: VITAL SIGNS: Current vital signs are reviewed. His temperature is 97.6, heart rate 100, respiratory rate 22, blood pressure 93/40, mean 57, 3L saturation is 100%. Appears in no acute distress. HEENT: Examination is grossly unremarkable. He is wearing nasal cannula. NECK: Supple. Full range of motion. CARDIOVASCULAR: Examination reveals regular rhythm and rate. Heart rate about 100 beats per minute. S1, S2 normal. There is no S3, S4, or murmur. LUNGS: Reveal diminished breath sounds at the right lung base. A few scattered crackles. No rhonchi. No wheezes. Left lung sounds are mostly clear. ABDOMEN: Soft. Bowel sounds are noted. EXTREMITIES are intact. No significant edema. SKIN: Without rash. NEUROLOGIC: Examination is difficult to assess. He does move all 4 extremities. White count 7, hemoglobin 10.3, hematocrit 33.2, platelet count normal. Sodium and potassium normal. Chloride 108, CO2 23, anion gap 9. BUN and creatinine were 61 and 2.47. Microbiology is negative for all pleural fluid analysis at this time. Based on pleural fluid analysis, the pleural fluid appears to be a transudate. ASSESSMENT: 1. Right knee injury,/pain secondary to a fall. 2. Atrial fibrillation with rapid ventricular response. 3. Right-sided pleural effusion, January 11, 2020, with 1.2 L of transudative fluid removed. 4. History of atrial fibrillation. 5. History of prostate cancer, status post external beam radiation. 6. History of skin cancer. 7. Chronic obstructive pulmonary disease. 8. Diabetes with diabetic neuropathy. 9. Gastroesophageal reflux disease. 10.Benign essential hypertension. 11.Radiation proctitis. 12.History of diverticular disease. 13.History of chronic alcohol abuse with alcohol withdrawal syndrome. 14.Acute kidney injury related to acute tubular necrosis. 15.History of thyroid cancer, status post resection. 16.Severe pulmonary hypertension. 17.Abdominal distention secondary to regional ileus. PLAN: The patient did have a right-sided thoracentesis. It appears to be a transudate. The LDH and protein were both low. We will reduce the FiO2 as tolerated. The patient should be evaluated for discharge relatively soon. I do not know if he is going home or going to a rehab facility. He appears to be awfully weak. In addition, his whole demeanor just in one day has changed. Yesterday, he was much more cheerful and today, he seems very sad and he just wants to "go home". MMODL / SKYEN: [id number] /
--- NOTE | 2020-01-12 16:41 | PN ---
PROGRESS NOTE Patient is seen for followup for acute kidney injury. The patient's renal function has been stable with creatinine staying at 2.4-2.5 mg/dL. Initial creatinine was 1.27. He is maintained on IV fluids but there has not been any further improvement in his renal function. There is no evidence of urine retention, however, postvoid residual was slightly on the higher side yesterday at 350 mL. Ultrasound does not show any hydronephrosis and UA shows underlying urinary tract infection. Patient is comfortable. He denies any significant complaints except for pain in his leg. PHYSICAL EXAMINATION: On examination, blood pressure was 93/40, heart rate 108 per minute, he is afebrile. Examination of the heart S1, S2. Examination of the lungs, bilateral breath sounds are heard. Decreased breath sounds at bases. Abdomen is soft, distended, nontender. Examination of lower extremities shows no evidence of edema. SCIENCE INTERPRETER exam grossly intact. LAB: Show sodium 140, potassium 4.7, chloride 108, BUN 61, creatinine 2.47, magnesium 2.0, hemoglobin 10.3 g/dL. ASSESSMENT: 1. Acute kidney injury, most likely acute tubular necrosis, nonoliguric. Rule out urine retention. Repeat a postvoid residual. There is no evidence of obstruction on ultrasound. Urine eosinophiles were negative. I will order baseline serologies as well. No nephrotoxic agents on board. Currently patient is maintained on IV bicarb, which I will continue at the current rate. 2. Status post fall and right knee hemarthrosis. 3. Abdominal distention with CT scan showing no acute process. Thickening of the rectal wall was noted and colonic diverticulosis. 4. Metabolic acidosis associated with renal failure, currently maintained on IV bicarb. PLAN: Check baseline serologies. Continue with the IV bicarb for now. Repeat labs in a.m. MMODL / IJN: [id number] /
[2020-01-12 17:07] LABS: Glucose,Whole Blood 264 mg/dL (75-99)
[2020-01-12 20:04] LABS: Glucose,Whole Blood 427 mg/dL (75-99)
[2020-01-12] MEDS: LATANOPROST 0.005% OPHTH DROPS 2.5 ML BTL BOTH EYES SCH (20:14)
--- NOTE | 2020-01-12 21:44 | PN ---
PROGRESS NOTE DATE OF SERVICE: 01/12/2020 I am covering for Dr. Redman. This 85-year-old gentleman was admitted with multiple medical problems, had rt pleural effusion. The patient underwent a right thoracocentesis today. Patient still has less shortness of breath. The patient also has significant gait dysfunction and knee problems also. The most recent chest x-ray personally evaluated by me showed some significant pleural effusion on the rt side. There is no history of fever, rigors or chills. The patient is mildly confused. CURRENT MEDICATIONS: Reviewed and include: 1. Tylenol p.r.n. 2. [place] 5 mg q.6h p.r.n. 3. Maalox. 4. DuoNeb q.i.d. and p.r.n. 5. Xanax 0.5 q.h.s. 6. Pulmicort. 7. Tums. 8. Voltaren. 9. Pepcid. 10.Heparin. 11.Dilaudid. 12.Cephulac. 13.Synthroid. 14.Melatonin. 15.Toprol. 16.ProAmatine. 17.Zofran. PHYSICAL EXAM: Patient is alert, oriented x3. The pulse is 134, blood pressure 111/80, respiration 18, temperature 97 degrees, pulse ox 99% on room air. HEENT: Oral mucosa moist. NECK is no jugular venous distention. No carotid bruit. No lymph node enlargement. CARDIOVASCULAR systems: S1, S2 muffled. RESPIRATION: Breath sounds diminished in the bases. A few scattered rhonchi and crackles. ABDOMEN: Soft, obese, nontender. LEGS: No edema. No swelling. NERVOUS SYSTEM: Diffusely weak. LABS: WBC 7, hemoglobin is 10.3, creatinine is 2.47. Glucose 240. ASSESSMENT: 1. Shortness of breath secondary to pleural effusion rt. 2. Status post right pleural effusion, thoracocentesis. 3. CT scan showing masslike atelectasis. 4. Acute kidney injury with acute renal failure with chronic kidney disease, stage III baseline. 5. Acute urinary tract infection present on admission. 6. Acute right knee hemarthrosis. 7. Fall and gait dysfunction. 8. Metabolic encephalopathy secondary to above acute change in mental status. 9. Generalized weakness. 10.Chronic obstructive pulmonary disease. 11.Chronic right-sided pleural effusion. 12.History of nicotine dependence. 13.Hypertension. 14.Diabetes mellitus type 2. 15.History of gait dysfunction. 16.Persistent atrial fibrillation. 17.Chronic thoracic point degenerative joint disease. 18.Hypothyroidism. 19.Gastroesophageal reflux disease. 20.History of mitral regurgitation. 21.Severe tricuspid regurgitation. 22.History of pulmonary hypertension secondary to chronic obstructive pulmonary disease. RECOMMENDATIONS AND DISCUSSION: I recommend to continue current management. Symptomatic treatment. Pleural effusion tapped on the rt side. PT/OT evaluation, possible ECF rehab. Reconcile the home medications. Otherwise continue to monitor. The creatinine has slightly improved. Guarded prognosis. Further recommendations to follow. MMODL / IJN: [id number] / MTDLibrado
[2020-01-13] MEDS: PIPERACILLIN-TAZOBACTAM 3.375 GM in SODIUM CHLORIDE 0.9% 100 ML IVPB SCH ×3 (01:56→17:39)
[2020-01-13] MEDS: DEXTROSE 5% IN WATER 1,000 ML with SODIUM BICARB (1 MEQ/ML) 150 ML IV SCH (01:58)
[2020-01-13 07:05] LABS: Glucose,Whole Blood 190 mg/dL (75-99)
[2020-01-13] MEDS: IPRATROPIUM-ALBUTEROL 3 ML NEB INHALATION SCH ×5 (07:18→20:02)
[2020-01-13] MEDS: BUDESONIDE 1 MG/2 ML NEBU INHALATION SCH ×2 (07:18→20:02)
[2020-01-13] MEDS: FORMOTEROL FUMARATE 20 MCG/2 ML NEBU INHALATION SCH ×2 (07:18→20:02)
[2020-01-13 07:19] LABS: Basophils % (A) 0 %; Eosinophils # (A) 0.1 k/uL (0-0.7); Eosinophils % (A) 1 %; HCT 32.1 % (39.0-53.0); Hypochromasia Moderate; Lymphocytes # (A) 0.4 k/uL (1.0-4.8); Lymphocytes % (A) 6 %; MCV 116.1 fL (80.0-100.0); Macrocytosis Marked; Mean Platelet Volume 9.6; Monocytes # (A) 0.4 k/uL (0-1.0); Monocytes % (A) 5 %; Neutrophils # (A) 5.9 k/uL (1.3-7.7); Neutrophils % (A) 85 %; Platelet Count 196 k/uL (150-450); RBC 2.76 m/uL (4.30-5.90); RDW 15.9 % (11.5-15.5)
[2020-01-13 07:37] LABS: Calcium 8.6 mg/dL (8.4-10.2); Potassium 4.9 mmol/L (3.5-5.1)
[2020-01-13] MEDS: MIDODRINE 5 MG TAB PO SCH ×3 (08:30→18:42)
[2020-01-13] MEDS: METOPROLOL SUCCINATE (ER) 25 MG TAB.ER.24H PO SCH (08:30)
[2020-01-13] MEDS: LEVOTHYROXINE 112 MCG TAB PO SCH (08:30)
[2020-01-13] MEDS: INSULIN ASPART (NovoLOG) 100 UNIT/ML VIAL SQ SCH ×4 (08:30→20:16)
[2020-01-13] MEDS: FAMOTIDINE 20 MG/2 ML VIAL IV SCH (08:31)
[2020-01-13] MEDS: HEPARIN SODIUM,PORCINE 5,000 UNIT/ML 1 ML VIAL SQ SCH ×2 (08:31→20:16)
[2020-01-13] MEDS: DICLOFENAC SODIUM GEL 100 GM TUBE TOPICAL SCH ×4 (08:32→20:18)
[2020-01-13] MEDS: ALPRAZolam 0.25 MG TAB PO PRN (08:38)
[2020-01-13 12:15] LABS: Glucose,Whole Blood 65 mg/dL (75-99)
--- NOTE | 2020-01-13 13:27 | CT ---
EXAMINATION TYPE: CT brain wo con DATE OF EXAM: 01/13/2020 COMPARISON: Previous study dated 08/14/2017. HISTORY: altered mental status CT DLP: 865.3 mGycm Automated exposure control for dose reduction was used. FINDINGS: There are generalized changes of sulcal prominence and ventriculomegaly, compatible with atrophic regina nge. There is diffuse periventricular white matter lucency in keeping with chronic white matter ische jameel change. There are vascular calcifications present. There is no acute focal lesion, mass effect or midline shift identified. There is no evidence of intracranial blood. Visualized portions of the paranasal sinuses and mastoids are clear. The bony calvarium is intact. IMPRESSION: 1. NO ACUTE INTRACRANIAL ABNORMALITY. 2. ATROPHY. 3. CHRONIC WHITE MATTER ISCHEMIC CHANGE.
[2020-01-13] MEDS: IPRATROPIUM-ALBUTEROL 3 ML NEB INHALATION PRN (15:45)
--- NOTE | 2020-01-13 16:15 | PN ---
PROGRESS NOTE Patient is seen for followup for acute kidney injury. He was admitted to the hospital with a history of fall and right knee hemarthrosis. His serum creatinine has been elevated at about 2.5 mg/dL which was an increase from admission creatinine of 1.27. The patient had been hypotensive for which he was started on midodrine. Renal function improved slightly to creatinine of about 2.4, however, today it is back up to 2.6. The patient remains on IV fluids, mainly on bicarb drip at about 50 mL an hour. Currently he has a sitter at bedside. The patient has been confused and has been pulling at his IVs and he has pulled out his Hearn catheter as well. He has not been eating much. PHYSICAL EXAMINATION: On examination, blood pressure 97/59, heart rate 82 per minute, he is afebrile. Examination of the heart S1, S2. Examination of the lungs, bilateral breath sounds are heard. Abdomen is soft, nontender. Examination of lower extremities shows no significant edema. 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 LABS: Show sodium 141, potassium 4.9, chloride 108, CO2 is 23. BUN 60, creatinine 2.62, hemoglobin 10.0 g/dL. ASSESSMENT: 1. Acute kidney injury secondary to hypotension hypoperfusion, currently maintained on midodrine. Multiple postvoid residuals have been below 400. The patient has no evidence of hydronephrosis on the ultrasound. He is not on any nephrotoxic medications. He is maintained on gentle IV hydration, although he is not eating or drinking much. I will increase the IV fluids to about 70 mL an hour. 2. Metabolic acidosis, maintained on IV bicarb, now improved. 3. Status post fall and right knee hemarthrosis. 4. Right knee hemarthrosis status post intra-articular steroid injection and arthrocentesis. PLAN: Increase IV fluids and continue to encourage increased oral intake. Repeat labs in a.m. MMODL / IJN: [id number] /
[2020-01-13 16:55] LABS: Bacteria,Urine Occasional /hpf; Budding Yeast,Urine Many /hpf; RBC,Urine 28 /hpf (0-5); WBC,Urine >182 /hpf (0-5)
[2020-01-13 16:58] LABS: Appearance,Urine Cloudy (Clear); Bilirubin,Urine Negative (Negative); Blood,Urine Large (Negative); Color,Urine Yellow; Glucose,Urine (UA) Negative (Negative); Ketones,Urine Negative (Negative); Leukocyte Esterase,Urine Large (Negative); Nitrite,Urine Negative (Negative); Protein,Urine 2+ (Negative); Specific Gravity,Urine 1.015 (1.001-1.035); Urobilinogen,Urine <2.0 mg/dL (<2.0)
[2020-01-13 17:26] LABS: Glucose,Whole Blood 131 mg/dL (75-99)
[2020-01-13] MEDS: LACTATED RINGERS 1,000 ML IV SCH (17:42)
[2020-01-13 20:04] LABS: Glucose,Whole Blood 162 mg/dL (75-99)
[2020-01-13] MEDS: LATANOPROST 0.005% OPHTH DROPS 2.5 ML BTL BOTH EYES SCH (20:17)
--- NOTE | 2020-01-14 01:02 | PN ---
PROGRESS NOTE DATE OF SERVICE: 01/13/2020 I am covering for Dr. Redman. This 85-year-old gentleman who was admitted with multiple medical problems and right pleural effusion. The patient continues to be confused. The patient also had thoracocentesis. The patient also had a CT scan of the brain which was reviewed personally by me today showed no acute stroke but significant atrophy suggestive of possible dementia. PT, OT is also evaluating the patient closely for possible ECF rehab. PAST MEDICAL HISTORY: Reviewed. REVIEW OF SYSTEMS: Could not be taken, the patient is confused. CURRENT MEDICATIONS: Current medications are reviewed and include: 1. Tylenol p.r.n. 2. [place] 5 mg. 3. Maalox. 4. DuoNeb q.i.d. and p.r.n. 5. Xanax. 6. Pulmicort. 7. Tums. 8. Voltaren. 9. Pepcid. 10.Folic acid. 11.Heparin. 12.Dilaudid. 13.Xalatan. 14.Cephulac. 15.Synthroid. 16.Milk of magnesia. 17.Toprol. 18.ProAmatine. 19.Morphine sulfate. 20.Narcan. 21.MiraLAX. 22.Vitamin B1. PHYSICAL EXAMINATION: Patient is stuporous. Pulse is 107 blood pressure 97/59, respiration 20, temperature 96.3, pulse ox 98% on 3 L. HEENT: Conjunctivae normal. NECK: No jugular venous distention. CARDIOVASCULAR: S1, S2 muffled. RESPIRATORY: Breath sounds diminished at the bases. A few rhonchi and crackles. ABDOMEN: Soft and nontender. LEGS: No edema, no swelling. NERVOUS SYSTEM: Diffusely weak. LABS: WBC 7, hemoglobin 10, MCV 116. Sodium 141, potassium 4.9, creatinine is 2.62. ASSESSMENT: 1. Shortness of breath secondary to pleural effusion, right. 2. Status post right pleural effusion, thoracocentesis. 3. Change in mental status, metabolic encephalopathy, acute, multifactorial. 4. 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. 5. CT scan of the chest showing masslike atelectasis. 6. Acute kidney injury with acute renal failure with acute tubular necrosis. 7. Chronic kidney disease stage 3 baseline. 8. Acute urinary tract infection, present on admission. 9. Acute right knee hemarthrosis. 10.Fall and gait dysfunction. 11.Metabolic encephalopathy secondary to above and change in mental status. 12.Generalized weakness. 13.Chronic obstructive pulmonary disease. 14.Chronic right-sided pleural effusion. 15.History of nicotine dependence. 16.Hypertension. 17.Diabetes mellitus type 2. 18.History of gait dysfunction. 19.Persistent atrial fibrillation. 20.Chronic degenerative joint disease. 21.Hypothyroidism. 22.Gastroesophageal reflux disease. 23.History of mitral regurgitation. 24.Severe tricuspid regurgitation. 25.History of pulmonary hypertension secondary to chronic obstructive pulmonary disease. 26.NO CODE NO CPR NO VENT. RECOMMENDATIONS AND DISCUSSION: This 85-year-old gentleman who presented with multiple complex medical issues, we will monitor the patient closely. Continue the current medications, continue symptomatic treatment. Monitor creatinine. Monitor abnormal labs closely. Avoid nephrotoxic medications. Nephrology is following the patient closely. I had a detailed discussion with daughter at the bedside, who is from [place]. We will continue the empiric antibiotics. PT, OT evaluation and possible ECF rehab currently. The daughter will also talk with case management and social welfare clerk regarding the further plans also. Once again the prognosis guarded. Further recommendations to follow. MMODL / IJN: [id number] /
[2020-01-14] MEDS: PIPERACILLIN-TAZOBACTAM 3.375 GM in SODIUM CHLORIDE 0.9% 100 ML IVPB SCH ×3 (01:45→20:37)
[2020-01-14 07:01] LABS: Glucose,Whole Blood 183 mg/dL (75-99)
[2020-01-14] MEDS: BUDESONIDE 1 MG/2 ML NEBU INHALATION SCH ×2 (07:13→19:53)
[2020-01-14] MEDS: IPRATROPIUM-ALBUTEROL 3 ML NEB INHALATION SCH ×4 (07:13→19:53)
[2020-01-14] MEDS: FORMOTEROL FUMARATE 20 MCG/2 ML NEBU INHALATION SCH ×2 (07:13→19:53)
[2020-01-14] MEDS: DICLOFENAC SODIUM GEL 100 GM TUBE TOPICAL SCH ×4 (09:13→22:17)
[2020-01-14] MEDS: INSULIN ASPART (NovoLOG) 100 UNIT/ML VIAL SQ SCH ×4 (09:15→20:35)
[2020-01-14] MEDS: METOPROLOL SUCCINATE (ER) 25 MG TAB.ER.24H PO SCH (09:16)
[2020-01-14] MEDS: THIAMINE 100 MG TAB PO SCH (09:17)
[2020-01-14] MEDS: HEPARIN SODIUM,PORCINE 5,000 UNIT/ML 1 ML VIAL SQ SCH ×2 (09:17→20:35)
[2020-01-14] MEDS: FAMOTIDINE 20 MG/2 ML VIAL IV SCH (09:17)
[2020-01-14] MEDS: MULTIVITAMINS, THERA 1 EACH TAB PO SCH (09:17)
[2020-01-14] MEDS: MIDODRINE 5 MG TAB PO SCH ×3 (09:18→17:20)
[2020-01-14] MEDS: LEVOTHYROXINE 112 MCG TAB PO SCH (09:18)
--- NOTE | 2020-01-14 09:23 | P.PN ---
Subjective Patient is seen in follow-up for acute kidney injury. Resting in bed. Not a reliable historian. Blood pressure remains on the lower side. Maintained on IV fluids. Nonoliguric. Vital signs are stable. Blood pressure on the lower side. General: The patient appeared well nourished and normally developed. HEENT: Head exam is unremarkable. Neck is without jugular venous distension. LUNGS: Breath sounds decreased. HEART: Rate and Rhythm are regular. ABDOMEN: soft, nontender. EXTREMITITES: No edema. Objective - Vital Signs Vital signs: Vital Signs Temp 97.3 F L 01/14/20 05:49 Pulse 104 H 01/14/20 07:44 Resp 18 01/14/20 05:49 BP 107/71 01/14/20 05:49 Pulse Ox 98 01/14/20 05:49 Intake & Output 01/13/20 01/14/20 01/14/20 18:59 06:59 18:59 Intake Total 240 600 Output Total 650 925 Balance -410 -325 Intake: Intake, IV Titration 600 Amount Lactated Ringers 1,000 ml 600 @ 75 mls/hr IV .[id number] [facility] Rx#:[id number] Oral 240 Output: Urine 650 925 Uretheral (Hearn) 300 Other: Voiding Method Diaper Diaper # Voids 3 # Bowel Movements 1 - Labs CBC & Chem 7: 01/13/20 06:41 01/13/20 06:41 Labs: Abnormal Lab Results - Last 24 Hours (Table) 01/13/20 01/13/20 01/13/20 Range/Units 12:14 16:30 17:24 POC Glucose (mg/dL) 65 L 131 H (75-99) mg/dL Urine Protein 2+ H (Negative) Urine RBC 28 H (0-5) /hpf Urine WBC >182 H (0-5) /hpf Urine WBC Clumps Many H (None) /hpf Urine Bacteria Occasional H (None) /hpf Urine Yeast (Budding) Many H (None) /hpf 01/13/20 01/14/20 Range/Units 19:57 07:00 POC Glucose (mg/dL) 162 H 183 H (75-99) mg/dL Urine Protein (Negative) Urine RBC (0-5) /hpf Urine WBC (0-5) /hpf Urine WBC Clumps (None) /hpf Urine Bacteria (None) /hpf Urine Yeast (Budding) (None) /hpf Microbiology - Last 24 Hours (Table) 01/11/20 11:30 Gram Stain - Preliminary Pleural Fluid Body Fluid Culture - Preliminary Assessment and Plan Plan: assessment: 1. Acute kidney injury secondary to ATN secondary to hypotension. Creatinine 2.62 as of yesterday. No hydronephrosis and kidney ultrasound. Currently has Hearn catheter. Nonoliguric. 2. Right knee hemarthrosis status post arthrocentesis. 3. Hypotension maintained on midodrine. 4. Metabolic acidosis status post IV bicarb. Better. 5. Right pleural effusion status post thoracentesis with 1.2 L drained. 6. Chronic systolic CHF with ejection fraction of 45-50% with diastolic dysfunction, moderate to severe mitral and tricuspid regurgitation. 7. Severe pulmonary hypertension. Plan: Check a.m. cortisol level. Decrease rate of IV fluids. Encouraged oral intake. Continue to monitor renal function and urine output. Morning labs pending.
[2020-01-14 11:19] LABS: Glucose,Whole Blood 333 mg/dL (75-99)
[2020-01-14 11:52] LABS: Calcium 8.4 mg/dL (8.4-10.2); Potassium 5.1 mmol/L (3.5-5.1)
[2020-01-14 11:53] LABS: Anisocytosis Slight; Basophils % (A) 0 %; Eosinophils % (A) 1 %; HGB 10.1 gm/dL (13.0-17.5); Hypochromasia Marked; Lymphocytes # (A) 0.4 k/uL (1.0-4.8); Lymphocytes % (A) 5 %; MCH 37.6 pg (25.0-35.0); MCHC 30.6 g/dL (31.0-37.0); Macrocytosis Marked; Mean Platelet Volume 9.7; Monocytes # (A) 0.4 k/uL (0-1.0); Monocytes % (A) 5 %; Neutrophils # (A) 7.3 k/uL (1.3-7.7); Neutrophils % (A) 88 %; Platelet Count 196 k/uL (150-450); RBC 2.68 m/uL (4.30-5.90); WBC 8.4 k/uL (3.8-10.6)
[2020-01-14] MEDS: FOLIC ACID 1 MG TAB PO SCH (12:27)
[2020-01-14] MEDS: SODIUM BICARBONATE TAB 650 MG TAB PO SCH ×2 (12:52→20:35)
--- NOTE | 2020-01-14 13:52 | P.PN ---
Subjective Progress Note Date: 01/14/20 Principal diagnosis: Stable right-sided pleural effusion, A. fib with RVR On 01/08/2020 patient seen in follow-up on medical surgical floor. He states his breathing is comfortable, improved from yesterday, although yesterday he denied any shortness of breath, currently on 2 L of oxygen with pulse ox of 99%, afebrile, hemodynamically stable, denies any chest pain, no cough or congestion. Remains on maintenance dose of oral Lasix, and 40 mg daily. 2 days labs show worsening of renal function, with BUN at 53 and creatinine of 2.32, nephrology is following. Denies any nausea vomiting or diarrhea. He is tolerating oral intake, no leukocytosis, no fever or chills. His midodrine was increased to 10 mg. No altered mentation, patient is answering questions appropriately, he is receiving oral medications for his knee pain. On 01/09/2020 patient seen in follow-up on the general medical floor. Follow-up chest x-ray was reviewed today with Dr. Hook, showing stable moderate right pleural effusion with associated right basilar atelectasis. Small to tiny left pleural effusion noted slightly increased in size from prior. Patient denies any shortness of breath, room air pulse ox of 100%, hemodynamically patient is stable, no fever or chills, lung sounds reveal diminished breath sounds at the right base, no couplets of chest pain, no cough or congestion. Renal profile continues to rise, with a BUN up to 54 and creatinine up to 2.51, nephrology is following. CO2 17, patient is being started on bicarbonate drip. Remains on midodrine 10 mg 3 times daily, did have some low blood pressures with systolic in the 80s yesterday, improved on today's vital signs, this morning blood pressure is 113/81. No nausea vomiting or diarrhea. Abdomen is distended and firm, but nontender, KUB of the abdomen is pending. On 01/10/2020 patient seen in follow-up on the general medical floor, his abdomen is still sore on today's exam, but distended, and tympanic, but bowel sounds are present, and patient states he has been passing gas, no nausea or vomiting, he is tolerating oral diet. KUB of the abdomen showed mild distention of the descending colon up to 6.3 cm that could represent a regional ileus, nonobstructive bowel gas pattern, and right basilar pleural effusion with atelectasis. A pulmonary perspective his breathing is stable, no worsening dyspnea, he does remain on oxygen on 2 L, the pulse ox of 98%, no cough, no wheezing, lung sounds are diminished at the bases. Yesterday the chest x-ray showed stable in appearance right sided pleural effusion and we did not recommend a thoracentesis at this time. Today's labs have been reviewed, renal profile is relatively stable, with BUN of 57, and creatinine of 2.48, CO2 is 20, patient remains on bicarbonate infusion at [address] abdomen abdomen is pending. Nephrology is following On 01/14/2020 patient seen in follow-up on the general medical floor. Appears weak, but no acute distress, remains on 3 L of oxygen and the pulse ox 100%, he is afebrile, slightly tachycardic with a heart rate in the 108-114 BPM range, blood pressure is 100/69, lung sounds reveal diminished breath sounds at the bases, patient is status post right-sided thoracentesis with removal of 1.2 L of yellow pleural fluid, cytology is still pending, pleural fluid cultures pending, preliminary Gram stain showed no organisms. Pleural fluid analysis shows transudative fluid. She remains on Zosyn for empiric antibiotic coverage. No fever or chills, no cough or congestion. Today's labs have been reviewed showin g normal white blood cell count of 8.4, hemoglobin is 10.1, slightly improved renal profile with BUN of 61 and creatinine of 2.32. Objective - Vital Signs Vital signs: Vital Signs Temp 98.7 F 01/14/20 12:25 Pulse 114 H 01/14/20 12:25 Resp 20 01/14/20 12:25 BP 100/69 01/14/20 12:25 Pulse Ox 100 01/14/20 12:25 Intake & Output 01/13/20 01/14/20 01/14/20 18:59 06:59 18:59 Intake Total 240 600 900 Output Total 650 925 Balance -410 -325 900 Weight 68.5 kg Intake: Intake, IV Titration 600 400 Amount Lactated Ringers 1,000 ml 600 400 @ 50 mls/hr IV .Q20H [facility] Rx#:[id number] Oral 240 500 Output: Urine 650 925 Uretheral (Hearn) 300 Other: Voiding Method Diaper Diaper Diaper Indwelling Catheter # Voids 3 # Bowel Movements 1 1 - Exam GENERAL EXAM: Alert, very pleasant, 85-year-old white male, on 3 L of oxygen pulse ox of 100% HEAD: Normocephalic/atraumatic. EYES: Normal reaction of pupils, equal size. Conjunctiva pink, sclera white. NOSE: Clear with pink turbinates. THROAT: No erythema or exudates. NECK: No masses, no JVD, no thyroid enlargement, no adenopathy. CHEST: No chest wall deformity. Symmetrical expansion. LUNGS: Equal air entry with no crackles, wheeze, rhonchi or dullness. CVS: Regular rate and rhythm, normal S1 and S2, no gallops, no murmurs, no rubs ABDOMEN: Soft, nontender. No hepatosplenomegaly, normal bowel sounds, no guarding or rigidity. EXTREMITIES: No clubbing, no edema, no cyanosis, 2+ pulses and upper and lower extremities. MUSCULOSKELETAL: Muscle strength and tone normal. SPINE: No scoliosis or deformity SKIN: No rashes CENTRAL NERVOUS SYSTEM: Alert and oriented -3. No focal deficits, tone is normal in all 4 extremities. PSYCHIATRIC: Alert and oriented -3. Appropriate affect. Intact judgment and insight. - Labs CBC & Chem 7: 01/14/20 11:02 01/14/20 11:02 Labs: Abnormal Lab Results - Last 24 Hours (Table) 01/13/20 01/13/20 01/13/20 Range/Units 16:30 17:24 19:57 RBC (4.30-5.90) m/uL Hgb (13.0-17.5) gm/dL Hct (39.0-53.0) % MCV (80.0-100.0) fL MCH (25.0-35.0) pg MCHC (31.0-37.0) g/dL RDW (11.5-15.5) % Lymphocytes # (1.0-4.8) k/uL Macrocytosis Chloride (98-107) mmol/L Carbon Dioxide (22-30) mmol/L BUN (9-20) mg/dL Creatinine (0.66-1.25) mg/dL Glucose (74-99) mg/dL POC Glucose (mg/dL) 131 H 162 H (75-99) mg/dL Urine Protein 2+ H (Negative) Urine RBC 28 H (0-5) /hpf Urine WBC >182 H (0-5) /hpf Urine WBC Clumps Many H (None) /hpf Urine Bacteria Occasional H (None) /hpf Urine Yeast (Budding) Many H (None) /hpf 01/14/20 01/14/20 01/14/20 Range/Units 07:00 11:02 11:02 RBC 2.68 L (4.30-5.90) m/uL Hgb 10.1 L (13.0-17.5) gm/dL Hct 33.0 L (39.0-53.0) % MCV 123.0 H D (80.0-100.0) fL MCH 37.6 H (25.0-35.0) pg MCHC 30.6 L (31.0-37.0) g/dL RDW 16.0 H (11.5-15.5) % Lymphocytes # 0.4 L (1.0-4.8) k/uL Macrocytosis Marked A Chloride 110 H (98-107) mmol/L Carbon Dioxide 19 L (22-30) mmol/L BUN 61 H (9-20) mg/dL Creatinine 2.32 H (0.66-1.25) mg/dL Glucose 263 H (74-99) mg/dL POC Glucose (mg/dL) 183 H (75-99) mg/dL Urine Protein (Negative) Urine RBC (0-5) /hpf Urine WBC (0-5) /hpf Urine WBC Clumps (None) /hpf Urine Bacteria (None) /hpf Urine Yeast (Budding) (None) /hpf 01/14/20 Range/Units 11:17 RBC (4.30-5.90) m/uL Hgb (13.0-17.5) gm/dL Hct (39.0-53.0) % MCV (80.0-100.0) fL MCH (25.0-35.0) pg MCHC (31.0-37.0) g/dL RDW (11.5-15.5) % Lymphocytes # (1.0-4.8) k/uL Macrocytosis Chloride (98-107) mmol/L Carbon Dioxide (22-30) mmol/L BUN (9-20) mg/dL Creatinine (0.66-1.25) mg/dL Glucose (74-99) mg/dL POC Glucose (mg/dL) 333 H (75-99) mg/dL Urine Protein (Negative) Urine RBC (0-5) /hpf Urine WBC (0-5) /hpf Urine WBC Clumps (None) /hpf Urine Bacteria (None) /hpf Urine Yeast (Budding) (None) /hpf Microbiology - Last 24 Hours (Table) 01/11/20 11:30 Gram Stain - Preliminary Pleural Fluid Body Fluid Culture - Preliminary Assessment and Plan Plan: Assessment: #1. Recurrent right-sided pleural effusion, status post right-sided thoracen tesis on 01/11/2020 would removal of 1.2 L of yellow pleural fluid which is transudative in nature, cytology pending, Gram stain shows no growth #2. Right knee injury/pain secondary to a fall #3. A. fib with RVR #4. History of atrial fibrillation not on chronic anticoagulation #5. History of prostate cancer status post external beam radiation #6. History of skin cancer #7. History of COPD #8. Diabetes mellitus with diabetic neuropathy #9. GERD/reflux #10. History of benign essential hypertension #11. History of GI bleeding #12. Radiation proctitis #13. History of diverticular disease #14. 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 Acute kidney injury related to ATN, nephrology is following #16. History of thyroid cancer status post resection maintained on supplementation #17. Severe pulmonary hypertension and mild LV impairment with EF of 45-50% #18. Abdominal distention and pain, and KUB of the abdomen showing a nonobstruc tive gas pattern with mild distention of the descending colon, possible regional ileus Plan: Awaiting results of the pleural fluid cytology, continue current medical treatment, continue Pulmicort, Perforomist, DuoNeb. Pleural fluid analysis showed transudative fluid, culture is negative thus far. No fever or chills. Patient is extremely weak, unable to ambulate. Will likely need placement into ECF for rehab after discharge. We will continue to follow I performed a history & physical examination of the patient and discussed their management with my nurse practitioner, Sujatha Barron. I reviewed the nurse practitioner's note and agree with the documented findings and plan of care. Lynne ng sounds are positive for diminished breath sounds at the bases throughout the lung graham. The findings and the impression was discussed with the patient. I attest to the documentation by the nurse practitioner. Time with Patient: Less than 30
--- NOTE | 2020-01-14 15:12 | P.PN ---
Subjective Progress Note Date: 01/14/20 Principal diagnosis: This is an 85-year-old male who was recently admitted with multiple medical problems along with right pleural effusion and is being closely monitored. Patient is status post thoracentesis of the right and current cultures and pathology are pending at this time. Approximately 1.2 L were drained from the right pleural effusion. Pulmonary is following closely. Case management and social work also following and working on possible ECF once stabilized and d ischarged for continued PT/OT therapy. Patient continues to be quite weak and confused at this time. Patient is a little more alert with daughter at the bedside. Patient is afebrile. Review of systems: Unable to obtain as patient continues to be confused Active Medications Acetaminophen (Tylenol Tab) 650 mg PO Q6HR PRN PRN Reason: Mild Pain or Fever > 100.5 Last Admin: 01/08/20 03:27 Dose: 650 mg Documented by: Hydrocodone Bitart/Acetaminophen (Pitman 5-325) 1 each PO Q6HR PRN PRN Reason: MODERATE Pain IF TAKING PO MED Last Admin: 01/09/20 00:26 Dose: 1 each Documented by: Al Hydroxide/Mg Hydroxide (Maalox) 15 ml PO Q6HR PRN PRN Reason: Indigestion Albuterol/Ipratropium (Duoneb 0.5 Mg-3 Mg/3 Ml Soln) 3 ml INHALATION RT-QID PRN PRN Reason: Shortness Of Breath Or Wheezing Albuterol/Ipratropium (Duoneb 0.5 Mg-3 Mg/3 Ml Soln) 3 ml INHALATION RT-QID [facility] Last Admin: 01/14/20 14:54 Dose: 3 ml Documented by: Alprazolam (Xanax) 0.25 mg PO Q6HR PRN PRN Reason: Anxiety Last Admin: 01/13/20 08:38 Dose: 0.25 mg Documented by: Budesonide (Pulmicort) 1 mg INHALATION RT-BID [facility] Last Admin: 01/14/20 07:13 Dose: 1 mg Documented by: Calcium Carbonate/Glycine (Tums) 1,000 mg PO Q4HR PRN PRN Reason: Dyspepsia Diclofenac Sodium (Voltaren Gel) 4 gm TOPICAL QID [facility] Last Admin: 01/14/20 12:33 Dose: 4 gm Documented by: Famotidine (Pepcid) 20 mg IV DAILY [facility] Last Admin: 01/14/20 09:17 Dose: 20 mg Documented by: Folic Acid (Folic Acid) 1 mg PO DAILY@1200 [facility] Last Admin: 01/14/20 12:27 Dose: 1 mg Documented by: Formoterol Fumarate (Perforomist) 20 mcg INHALATION RT-BID [facility] Last Admin: 01/14/20 07:13 Dose: 20 mcg Documented by: Heparin Sodium (Porcine) (Heparin) 5,000 unit SQ Q12HR [facility] Last Admin: 01/14/20 09:17 Dose: 5,000 unit Documented by: Hydromorphone HCl (Dilaudid) 0.5 mg IVP Q3HR PRN PRN Reason: Moderate Pain IF NPO Last Admin: 01/08/20 01:38 Dose: 0.5 mg Documented by: Piperacillin Sod/Tazobactam (Sod 3.375 gm/ Sodium Chloride) 100 mls @ 25 mls/hr IVPB Q8H [facility] Last Admin: 01/14/20 09:15 Dose: 25 mls/hr Documented by: Lactated Ringer's (Lactated Ringers) 1,000 mls @ 50 mls/hr IV .Q20H [facility] Last Admin: 01/13/20 17:42 Dose: 75 mls/hr Documented by: Insulin Aspart (Novolog) 0 unit SQ ACHS [facility]; Protocol Last Admin: 01/14/20 12:27 Dose: 6 unit Documented by: Lactulose (Cephulac) 20 gm PO DAILY PRN PRN Reason: Constipation Latanoprost (Xalatan 0.005%) 1 drops [facility] Last Admin: 01/13/20 20:17 Dose: 1 drops Documented by: Levothyroxine Sodium (Synthroid) 112 mcg PO DAILY@0800 [facility] Last Admin: 01/14/20 09:18 Dose: 112 mcg Documented by: Magnesium Hydroxide (Milk Of Magnesia) 2,400 mg PO DAILY PRN PRN Reason: Constipation Melatonin (Melatonin) 3 mg PO HS PRN PRN Reason: Insomnia Metoprolol Succinate (Toprol Xl) 25 mg PO DAILY@0800 [facility] Last Admin: 01/14/20 09:16 Dose: 25 mg Documented by: Midodrine (Proamatine) 10 mg PO AC-TID [facility] Last Admin: 01/14/20 12:27 Dose: 10 mg Documented by: Morphine Sulfate (Morphine Sulfate (Inj)) 4 mg IV Q4HR PRN PRN Reason: Severe Pain Last Admin: 01/04/20 20:35 Dose: 4 mg Documented by: Multivitamins (Theragran) 1 each PO DAILY@1200 [facility] Last Admin: 01/14/20 09:17 Dose: 1 each Documented by: Naloxone HCl (Narcan) 0.2 mg IV Q2M PRN PRN Reason: Opioid Reversal Dulaglutide [ (Trulicity] 1.5 Mg) 1.5 mg SQ SA@0800 [facility] Ondansetron HCl (Zofran) 4 mg IVP Q8HR PRN PRN Reason: Nausea And Vomiting Polyethylene Glycol (Miralax) 17 gm PO DAILY PRN PRN Reason: Constipation Sodium Bicarbonate (Sodium Bicarbonate Tab) 650 mg PO BID [facility] Last Admin: 01/14/20 12:52 Dose: 650 mg Documented by: Thiamine HCl (Vitamin B-1) 100 mg PO DAILY@1200 [facility] Last Admin: 01/14/20 09:17 Dose: 100 mg Documented by: Objective - Vital Signs Vital signs: Vital Signs Temp 98.7 F 01/14/20 12:25 Pulse 112 H 01/14/20 14:54 Resp 20 01/14/20 12:25 BP 100/69 01/14/20 12:25 Pulse Ox 100 01/14/20 12:25 Intake & Output 01/13/20 01/14/20 01/14/20 18:59 06:59 18:59 Intake Total 240 600 900 Output Total 650 925 Balance -410 -325 900 Weight 68.5 kg Intake: Intake, IV Titration 600 400 Amount Lactated Ringers 1,000 ml 600 400 @ 50 mls/hr IV .Q20H [facility] Rx#:[id number] Oral 240 500 Output: Urine 650 925 Uretheral (Hearn) 300 Other: Voiding Method Diaper Diaper Diaper Indwelling Catheter # Voids 3 # Bowel Movements 1 1 - Exam Gen: This is a 85-year-old male lying in bed, awake, alert and oriented 1. Confused. Temp is 98.7F, pulse is 114, respirations are 20, blood pressure is 100/69, oxygen saturation is 100% on 3 L via nasal cannula. HEENT: Head is atraumatic, normocephalic. Pupils equal, round. Sclerae is anicteric. NECK: Supple. No JVD. No lymphadenopathy. No thyromegaly. LUNGS: Diminished breath sounds at the bases with a few scattered rhonchi noted. Right more so than the left. No intercostal retractions. HEART: S1, S2 are full. ABDOMEN: Soft. Bowel sounds are present. No masses. No tenderness. EXTREMITIES: No pedal edema. No calf tenderness. NEUROLOGICAL: Patient is awake, alert and oriented x1. Diffusely weak - Labs CBC & Chem 7: 01/14/20 11:02 01/14/20 11:02 Labs: Abnormal Lab Results - Last 24 Hours (Table) 01/13/20 01/13/20 01/13/20 Range/Units 16:30 17:24 19:57 RBC (4.30-5.90) m/uL Hgb (13.0-17.5) gm/dL Hct (39.0-53.0) % MCV (80.0-100.0) fL MCH (25.0-35.0) pg MCHC (31.0-37.0) g/dL RDW (11.5-15.5) % Lymphocytes # (1.0-4.8) k/uL Macrocytosis Chloride (98-107) mmol/L Carbon Dioxide (22-30) mmol/L BUN (9-20) mg/dL Creatinine (0.66-1.25) mg/dL Glucose (74-99) mg/dL POC Glucose (mg/dL) 131 H 162 H (75-99) mg/dL Urine Protein 2+ H (Negative) Urine RBC 28 H (0-5) /hpf Urine WBC >182 H (0-5) /hpf Urine WBC Clumps Many H (None) /hpf Urine Bacteria Occasional H (None) /hpf Urine Yeast (Budding) Many H (None) /hpf 01/14/20 01/14/20 01/14/20 Range/Units 07:00 11:02 11:02 RBC 2.68 L (4.30-5.90) m/uL Hgb 10.1 L (13.0-17.5) gm/dL Hct 33.0 L (39.0-53.0) % MCV 123.0 H D (80.0-100.0) fL MCH 37.6 H (25.0-35.0) pg MCHC 30.6 L (31.0-37.0) g/dL RDW 16.0 H (11.5-15.5) % Lymphocytes # 0.4 L (1.0-4.8) k/uL Macrocytosis Marked A Chloride 110 H (98-107) mmol/L Carbon Dioxide 19 L (22-30) mmol/L BUN 61 H (9-20) mg/dL Creatinine 2.32 H (0.66-1.25) mg/dL Glucose 263 H (74-99) mg/dL POC Glucose (mg/dL) 183 H (75-99) mg/dL Urine Protein (Negative) Urine RBC (0-5) /hpf Urine WBC (0-5) /hpf Urine WBC Clumps (None) /hpf Urine Bacteria (None) /hpf Urine Yeast (Budding) (None) /hpf 01/14/20 Range/Units 11:17 RBC (4.30-5.90) m/uL Hgb (13.0-17.5) gm/dL Hct (39.0-53.0) % MCV (80.0-100.0) fL MCH (25.0-35.0) pg MCHC (31.0-37.0) g/dL RDW (11.5-15.5) % Lymphocytes # (1.0-4.8) k/uL Macrocytosis Chloride (98-107) mmol/L Carbon Dioxide (22-30) mmol/L BUN (9-20) mg/dL Creatinine (0.66-1.25) mg/dL Glucose (74-99) mg/dL POC Glucose (mg/dL) 333 H (75-99) mg/dL Urine Protein (Negative) Urine RBC (0-5) /hpf Urine WBC (0-5) /hpf Urine WBC Clumps (None) /hpf Urine Bacteria (None) /hpf Urine Yeast (Budding) (None) /hpf Microbiology - Last 24 Hours (Table) 01/11/20 11:30 Gram Stain - Preliminary Pleural Fluid Body Fluid Culture - Preliminary Assessment and Plan Assessment: Shortness of breath secondary to pleural effusion, right Status post right pleural effusion, thoracentesis Change in mental status, metabolic encephalopathy, acute, multifactorial 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 Computed tomography scan of the chest showing masslike atelectasis Acute kidney injury with acute renal failure with acute tubular necrosis Chronic kidney disease stage III baseline Acute urinary tract infection, present on admission Acute right knee hemarthrosis Falling gait dysfunction Metabolic encephalopathy secondary to above and change in mental status Generalized weakness Chronic obstructive pulmonary disease Chronic right-sided pleural effusion History of nicotine dependence Hypertension Diabetes mellitus type 2 History of gait dysfunction Persistent atrial fibrillation Chronic degenerative joint disease Hypothyroidism Gastroesophageal reflux disease History of mitral regurgitation Severe tricuspid regurgitation History of pulmonary hypertension secondary to chronic obstructive pulmonary disease No code, no CPR, no vent Recommendations and discussion: Recommend continue current medications, management, and symptomatic treatment. Multiple medical consultations following. Patient currently remains on IV antibiotics and will continue at this time. PT/OT to continue following this patient will likely need ECF rehab once stabilized and discharged. Case management and social work following for possible placement in discharge planning needs. Due to multiple complex medical issues, prognosis is extremely guarded. Further recommendations to follow.
[2020-01-14 17:13] LABS: Glucose,Whole Blood 225 mg/dL (75-99)
[2020-01-14 19:59] LABS: Glucose,Whole Blood 222 mg/dL (75-99)
[2020-01-14] MEDS: risperiDONE 0.25 MG TAB PO SCH (20:35)
[2020-01-14] MEDS: LACTATED RINGERS 1,000 ML IV SCH ×2 (20:37→20:59)
[2020-01-14] MEDS: LATANOPROST 0.005% OPHTH DROPS 2.5 ML BTL BOTH EYES SCH (21:10)
[2020-01-15] MEDS: PIPERACILLIN-TAZOBACTAM 3.375 GM in SODIUM CHLORIDE 0.9% 100 ML IVPB SCH ×3 (02:50→18:12)
[2020-01-15] MEDS: FORMOTEROL FUMARATE 20 MCG/2 ML NEBU INHALATION SCH ×2 (07:08→19:11)
[2020-01-15] MEDS: BUDESONIDE 1 MG/2 ML NEBU INHALATION SCH ×2 (07:08→18:49)
[2020-01-15] MEDS: IPRATROPIUM-ALBUTEROL 3 ML NEB INHALATION SCH ×4 (07:08→18:49)
[2020-01-15 07:18] LABS: Glucose,Whole Blood 167 mg/dL (75-99)
[2020-01-15 07:59] LABS: Calcium 8.8 mg/dL (8.4-10.2); Magnesium 2.1 mg/dL (1.6-2.3); Potassium 4.9 mmol/L (3.5-5.1)
[2020-01-15 08:08] LABS: Basophils % (A) 0 %; Eosinophils # (A) 0.1 k/uL (0-0.7); Eosinophils % (A) 1 %; HCT 32.4 % (39.0-53.0); HGB 10.3 gm/dL (13.0-17.5); Hypochromasia Marked; Lymphocytes # (A) 0.6 k/uL (1.0-4.8); Lymphocytes % (A) 9 %; MCH 37.2 pg (25.0-35.0); MCHC 31.8 g/dL (31.0-37.0); Macrocytosis Marked; Mean Platelet Volume 10.4; Monocytes # (A) 0.4 k/uL (0-1.0); Monocytes % (A) 6 %; Neutrophils # (A) 5.3 k/uL (1.3-7.7); Neutrophils % (A) 82 %; Platelet Count 177 k/uL (150-450); RBC 2.77 m/uL (4.30-5.90); RDW 15.7 % (11.5-15.5); WBC 6.4 k/uL (3.8-10.6)
[2020-01-15] MEDS: SODIUM BICARBONATE TAB 650 MG TAB PO SCH ×2 (08:23→21:01)
[2020-01-15] MEDS: LEVOTHYROXINE 112 MCG TAB PO SCH (08:23)
[2020-01-15] MEDS: HEPARIN SODIUM,PORCINE 5,000 UNIT/ML 1 ML VIAL SQ SCH ×2 (08:23→21:00)
[2020-01-15] MEDS: INSULIN ASPART (NovoLOG) 100 UNIT/ML VIAL SQ SCH ×4 (08:23→21:00)
[2020-01-15] MEDS: METOPROLOL SUCCINATE (ER) 25 MG TAB.ER.24H PO SCH (08:23)
[2020-01-15] MEDS: MIDODRINE 5 MG TAB PO SCH ×3 (08:23→18:14)
--- NOTE | 2020-01-15 08:44 | P.PN ---
Subjective Patient is seen in follow-up for acute kidney injury. Resting in bed. Not a reliable historian. Blood pressure stable. Maintained on IV fluids. Has a Hearn catheter. Vital signs are stable. General: The patient appeared well nourished and normally developed. HEENT: Head exam is unremarkable. Neck is without jugular venous distension. LUNGS: Breath sounds decreased. HEART: Rate and Rhythm are regular. ABDOMEN: soft, nontender. EXTREMITITES: No edema. Objective - Vital Signs Vital signs: Vital Signs Temp 97.3 F L 01/15/20 04:57 Pulse 112 H 01/15/20 07:37 Resp 20 01/15/20 04:57 BP 86/58 01/15/20 04:57 Pulse Ox 100 01/15/20 04:57 Intake & Output 01/14/20 01/15/20 01/15/20 18:59 06:59 18:59 Intake Total 900 1060 Output Total 200 200 Balance 700 860 Weight 68.5 kg Intake: Intake, IV Titration 400 700 Amount Lactated Ringers 1,000 ml 400 500 @ 50 mls/hr IV .Q20H [facility] Rx#:[id number] Piperacillin-Tazobactam 3 200 .375 gm In Sodium Chloride 0.9% 100 ml @ 25 mls/hr IVPB Q8H [facility] Rx#: [id number] Oral 500 360 Output: Urine 200 200 Uretheral (Hearn) 200 Other: Voiding Method Diaper Diaper Indwelling Catheter Indwelling Catheter # Bowel Movements 1 - Labs CBC & Chem 7: 01/15/20 07:06 01/15/20 07:06 Labs: Abnormal Lab Results - Last 24 Hours (Table) 01/14/20 01/14/20 01/14/20 Range/Units 11:02 11:02 11:17 RBC 2.68 L (4.30-5.90) m/uL Hgb 10.1 L (13.0-17.5) gm/dL Hct 33.0 L (39.0-53.0) % MCV 123.0 H D (80.0-100.0) fL MCH 37.6 H (25.0-35.0) pg MCHC 30.6 L (31.0-37.0) g/dL RDW 16.0 H (11.5-15.5) % Lymphocytes # 0.4 L (1.0-4.8) k/uL Macrocytosis Marked A Chloride 110 H (98-107) mmol/L Carbon Dioxide 19 L (22-30) mmol/L BUN 61 H (9-20) mg/dL Creatinine 2.32 H (0.66-1.25) mg/dL Glucose 263 H (74-99) mg/dL POC Glucose (mg/dL) 333 H (75-99) mg/dL 01/14/20 01/14/20 01/15/20 Range/Units 17:11 19:57 07:06 RBC 2.77 L (4.30-5.90) m/uL Hgb 10.3 L (13.0-17.5) gm/dL Hct 32.4 L (39.0-53.0) % MCV 117.0 H D (80.0-100.0) fL MCH 37.2 H (25.0-35.0) pg MCHC (31.0-37.0) g/dL RDW 15.7 H (11.5-15.5) % Lymphocytes # 0.6 L (1.0-4.8) k/uL Macrocytosis Marked A Chloride (98-107) mmol/L Carbon Dioxide (22-30) mmol/L BUN (9-20) mg/dL Creatinine (0.66-1.25) mg/dL Glucose (74-99) mg/dL POC Glucose (mg/dL) 225 H 222 H (75-99) mg/dL 01/15/20 01/15/20 Range/Units 07:06 07:17 RBC (4.30-5.90) m/uL Hgb (13.0-17.5) gm/dL Hct (39.0-53.0) % MCV (80.0-100.0) fL MCH (25.0-35.0) pg MCHC (31.0-37.0) g/dL RDW (11.5-15.5) % Lymphocytes # (1.0-4.8) k/uL Macrocytosis Chloride 108 H (98-107) mmol/L Carbon Dioxide (22-30) mmol/L BUN 61 H (9-20) mg/dL Creatinine 2.46 H (0.66-1.25) mg/dL Glucose 145 H (74-99) mg/dL POC Glucose (mg/dL) 167 H (75-99) mg/dL Microbiology - Last 24 Hours (Table) 01/14/20 12:30 Urine Culture - Preliminary Urine,Catheterized 01/11/20 11:30 Gram Stain - Preliminary Pleural Fluid Body Fluid Culture - Preliminary Assessment and Plan Plan: assessment: 1. Acute kidney injury secondary to ATN secondary to hypotension. Creatinine fairly stable at 2.46 today. No hydronephrosis and kidney ultrasound. Currently has Hearn catheter. Urine eosinophils negative. 2. Right knee hemarthrosis status post arthrocentesis. 3. Hypotension maintained on midodrine. 4. Metabolic acidosis status post IV bicarb. Better. Maintained on oral sodium bicarbonate. 5. Right pleural effusion status post thoracentesis with 1.2 L drained. 6. Chronic systolic CHF with ejection fraction of 45-50% with diastolic dysfunction, moderate to severe mitral and tricuspid regurgitation. 7. Severe pulmonary hypertension. Plan: Follow-up cortisol level. Maintain gentle IV fluids. Encouraged oral intake. Continue to monitor renal function and urine output. Check chest x-ray.
[2020-01-15] MEDS: DICLOFENAC SODIUM GEL 100 GM TUBE TOPICAL SCH ×4 (09:13→21:01)
[2020-01-15] MEDS: FAMOTIDINE 20 MG/2 ML VIAL IV SCH (09:14)
--- NOTE | 2020-01-15 09:15 | XR ---
EXAMINATION TYPE: XR chest 1V DATE OF EXAM: 01/15/2020 CLINICAL HISTORY: Difficulty breathing progress study. TECHNIQUE: Single AP portable upright view of the chest is obtained. COMPARISON: Chest x-ray from 4 days earlier FINDINGS: Persistent cardiomegaly with atherosclerotic and ectatic thoracic aorta causing slight tra cheal deviation to the right. Central vascular congestion with persistent small to moderate-sized rig ht pleural effusion and tiny left pleural effusion. Associated right mid to lower lung acute atelecta sis and/or infiltrate. Osseous structures are demineralized. IMPRESSION: Overall stable findings, cardiomegaly with central vascular congestion and small to mod erate size right pleural effusion with tiny left pleural effusion with right mid to lower lung acute atelectasis and/or infiltrate are all redemonstrated.
--- NOTE | 2020-01-15 11:22 | P.PN ---
Subjective Progress Note Date: 01/15/20 Principal diagnosis: Stable right-sided pleural effusion, A. fib with RVR On 01/08/2020 patient seen in follow-up on medical surgical floor. He states his breathing is comfortable, improved from yesterday, although yesterday he denied any shortness of breath, currently on 2 L of oxygen with pulse ox of 99%, afebrile, hemodynamically stable, denies any chest pain, no cough or congestion. Remains on maintenance dose of oral Lasix, and 40 mg daily. 2 days labs show worsening of renal function, with BUN at 53 and creatinine of 2.32, nephrology is following. Denies any nausea vomiting or diarrhea. He is tolerating oral intake, no leukocytosis, no fever or chills. His midodrine was increased to 10 mg. No altered mentation, patient is answering questions appropriately, he is receiving oral medications for his knee pain. On 01/09/2020 patient seen in follow-up on the general medical floor. Follow-up chest x-ray was reviewed today with Dr. Hook, showing stable moderate right pleural effusion with associated right basilar atelectasis. Small to tiny left pleural effusion noted slightly increased in size from prior. Patient denies any shortness of breath, room air pulse ox of 100%, hemodynamically patient is stable, no fever or chills, lung sounds reveal diminished breath sounds at the right base, no couplets of chest pain, no cough or congestion. Renal profile continues to rise, with a BUN up to 54 and creatinine up to 2.51, nephrology is following. CO2 17, patient is being started on bicarbonate drip. Remains on midodrine 10 mg 3 times daily, did have some low blood pressures with systolic in the 80s yesterday, improved on today's vital signs, this morning blood pressure is 113/81. No nausea vomiting or diarrhea. Abdomen is distended and firm, but nontender, KUB of the abdomen is pending. On 01/10/2020 patient seen in follow-up on the general medical floor, his abdomen is still sore on today's exam, but distended, and tympanic, but bowel sounds are present, and patient states he has been passing gas, no nausea or vomiting, he is tolerating oral diet. KUB of the abdomen showed mild distention of the descending colon up to 6.3 cm that could represent a regional ileus, nonobstructive bowel gas pattern, and right basilar pleural effusion with atelectasis. A pulmonary perspective his breathing is stable, no worsening dyspnea, he does remain on oxygen on 2 L, the pulse ox of 98%, no cough, no wheezing, lung sounds are diminished at the bases. Yesterday the chest x-ray showed stable in appearance right sided pleural effusion and we did not recommend a thoracentesis at this time. Today's labs have been reviewed, renal profile is relatively stable, with BUN of 57, and creatinine of 2.48, CO2 is 20, patient remains on bicarbonate infusion at [address] abdomen abdomen is pending. Nephrology is following On 01/14/2020 patient seen in follow-up on the general medical floor. Appears weak, but no acute distress, remains on 3 L of oxygen and the pulse ox 100%, he is afebrile, slightly tachycardic with a heart rate in the 108-114 BPM range, blood pressure is 100/69, lung sounds reveal diminished breath sounds at the bases, patient is status post right-sided thoracentesis with removal of 1.2 L of yellow pleural fluid, cytology is still pending, pleural fluid cultures pending, preliminary Gram stain showed no organisms. Pleural fluid analysis shows transudative fluid. She remains on Zosyn for empiric antibiotic coverage. No fever or chills, no cough or congestion. Today's labs have been reviewed showin g normal white blood cell count of 8.4, hemoglobin is 10.1, slightly improved renal profile with BUN of 61 and creatinine of 2.32. On 01/15/2020 patient seen in follow-up on a general medical floor, he appears lethargic, but arousable, he is very weak, quite pale, looks very fatigued, he states his breathing is more labored today, repeat chest x-ray today was reviewed overall showing stable findings with cardiomegaly with central vascular congestion and small to moderate size right pleural effusion with tiny left pleural effusion. His cytology of the pleural fluid is still pending at this t livia, he was transudative in nature. He remains on 3 L of oxygen, the pulse ox of 100%, blood pressure is in the lower side, this morning was 86/58, he is slightly tachycardic, afebrile. Pleural fluid cultures have shown no growth. Remains on breathing treatments, lung sounds reveal diminished breath sounds at the bases with some crackles, remains on IV Solu-Medrol, midodrine for hypotension, nephrology is following, and today's labs show slightly worsened renal function. Objective - Vital Signs Vital signs: Vital Signs Temp 97.3 F L 01/15/20 04:57 Pulse 108 H 01/15/20 11:02 Resp 20 01/15/20 04:57 BP 86/58 01/15/20 04:57 Pulse Ox 100 01/15/20 04:57 Intake & Output 01/14/20 01/15/20 01/15/20 18:59 06:59 18:59 Intake Total 900 1060 Output Total 200 200 Balance 700 860 Weight 68.5 kg Intake: Intake, IV Titration 400 700 Amount Lactated Ringers 1,000 ml 400 500 @ 50 mls/hr IV .Q20H [facility] Rx#:[id number] Piperacillin-Tazobactam 3 200 .375 gm In Sodium Chloride 0.9% 100 ml @ 25 mls/hr IVPB Q8H [facility] Rx#: [id number] Oral 500 360 Output: Urine 200 200 Uretheral (Hearn) 200 Other: Voiding Method Diaper Diaper Indwelling Catheter Indwelling Catheter # Bowel Movements 1 - Exam GENERAL EXAM: Very weak, lethargic, pale looking 85-year-old white male, on 3 L of oxygen pulse ox of 100% HEAD: Normocephalic/atraumatic. EYES: Normal reaction of pupils, equal size. Conjunctiva pink, sclera white. NOSE: Clear with pink turbinates. THROAT: No erythema or exudates. NECK: No masses, no JVD, no thyroid enlargement, no adenopathy. CHEST: No chest wall deformity. Symmetrical expansion. LUNGS: Equal air entry with no crackles, wheeze, rhonchi or dullness. CVS: Regular rate and rhythm, normal S1 and S2, no gallops, no murmurs, no rubs ABDOMEN: Soft, nontender. No hepatosplenomegaly, normal bowel sounds, no guarding or rigidity. EXTREMITIES: No clubbing, no edema, no cyanosis, 2+ pulses and upper and lower extremities. MUSCULOSKELETAL: Muscle strength and tone normal. SPINE: No scoliosis or deformity SKIN: No rashes CENTRAL NERVOUS SYSTEM: Fatigue, lethargic, but arousable. No focal deficits, tone is normal in all 4 extremities. - Labs CBC & Chem 7: 01/15/20 07:06 01/15/20 07:06 Labs: Abnormal Lab Results - Last 24 Hours (Table) 01/14/20 01/14/20 01/14/20 Range/Units 11:02 11:02 11:17 RBC 2.68 L (4.30-5.90) m/uL Hgb 10.1 L (13.0-17.5) gm/dL Hct 33.0 L (39.0-53.0) % MCV 123.0 H D (80.0-100.0) fL MCH 37.6 H (25.0-35.0) pg MCHC 30.6 L (31.0-37.0) g/dL RDW 16.0 H (11.5-15.5) % Lymphocytes # 0.4 L (1.0-4.8) k/uL Macrocytosis Marked A Chloride 110 H (98-107) mmol/L Carbon Dioxide 19 L (22-30) mmol/L BUN 61 H (9-20) mg/dL Creatinine 2.32 H (0.66-1.25) mg/dL Glucose 263 H (74-99) mg/dL POC Glucose (mg/dL) 333 H (75-99) mg/dL 01/14/20 01/14/20 01/15/20 Range/Units 17:11 19:57 07:06 RBC 2.77 L (4.30-5.90) m/uL Hgb 10.3 L (13.0-17.5) gm/dL Hct 32.4 L (39.0-53.0) % MCV 117.0 H D (80.0-100.0) fL MCH 37.2 H (25.0-35.0) pg MCHC (31.0-37.0) g/dL RDW 15.7 H (11.5-15.5) % Lymphocytes # 0.6 L (1.0-4.8) k/uL Macrocytosis Marked A Chloride (98-107) mmol/L Carbon Dioxide (22-30) mmol/L BUN (9-20) mg/dL Creatinine (0.66-1.25) mg/dL Glucose (74-99) mg/dL POC Glucose (mg/dL) 225 H 222 H (75-99) mg/dL 01/15/20 01/15/20 Range/Units 07:06 07:17 RBC (4.30-5.90) m/uL Hgb (13.0-17.5) gm/dL Hct (39.0-53.0) % MCV (80.0-100.0) fL MCH (25.0-35.0) pg MCHC (31.0-37.0) g/dL RDW (11.5-15.5) % Lymphocytes # (1.0-4.8) k/uL Macrocytosis Chloride 108 H (98-107) mmol/L Carbon Dioxide (22-30) mmol/L BUN 61 H (9-20) mg/dL Creatinine 2.46 H (0.66-1.25) mg/dL Glucose 145 H (74-99) mg/dL POC Glucose (mg/dL) 167 H (75-99) mg/dL Microbiology - Last 24 Hours (Table) 01/14/20 12:30 Urine Culture - Preliminary Urine,Catheterized 01/11/20 11:30 Gram Stain - Preliminary Pleural Fluid Body Fluid Culture - Preliminary Assessment and Plan Plan: Assessment: #1. Recurrent right-sided pleural effusion, status post right-sided thoracentesis on 01/11/2020 would removal of 1.2 L of yellow pleural fluid which is transudative in nature, cytology pending, Gram stain shows no growth #2. Right knee injury/pain secondary to a fall #3. A. fib with RVR #4. History of atrial fibrillation not on chronic anticoagulation #5. History of prostate cancer status post external beam radiation #6. History of skin cancer #7. History of COPD #8. Diabetes mellitus with diabetic neuropathy #9. GERD/reflux #10. History of benign essential hypertension #11. History of GI bleeding #12. Radiation proctitis #13. History of diverticular disease #14. 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 Acute kidney injury related to ATN, nephrology is following #16. History of thyroid cancer status post resection maintained on sup plementation #17. Severe pulmonary hypertension and mild LV impairment with EF of 45-50% #18. Abdominal distention and pain, and KUB of the abdomen showing a nonobstructive gas pattern with mild distention of the descending colon, possible regional ileus Plan: Today's chest x-ray has been reviewed showing stable findings with the central pulmonary congestion, and moderate size right pleural effusion, that we just strained on 01/11/2020. Cytology still pending, fluid was transudative. Ov erall patient's condition continues to deteriorate, patient is lethargic, sleepy most the time, very weak, he is unable to ambulate. Renal function is slightly worse today, nephrology is following, diuretics remain on hold. Continue current medical treatment, from pulmonary perspective we recommend palliative care and hospice. We'll continue supportive treatment for now. Prognosis is guarded I performed a history & physical examination of the patient and discussed their management with my nurse practitioner, Sujatha Barron. I reviewed the nurse practitioner's note and agree with the documented findings and plan of care. Lung sounds are positive for diminished breath sounds at the bases throughout the lung graham. The findings and the impression was discussed with the patient. I attest to the documentation by the nurse practitioner. Time with Patient: Less than 30
--- NOTE | 2020-01-15 11:46 | XR ---
EXAMINATION TYPE: XR chest 1V portable DATE OF EXAM: 01/15/2020 CLINICAL HISTORY: Difficulty breathing progress study. TECHNIQUE: Single AP portable upright view of the chest is obtained. COMPARISON: Chest x-ray from earlier today and older studies. CT chest September 27, 2019. FINDINGS: Background underlying emphysematous change redemonstrated. Persistent cardiomegaly with ath erosclerotic and ectatic thoracic aorta causing slight tracheal deviation to the right. Persistent Ce ntral vascular congestion with small to moderate-sized right pleural effusion and Associated right mid to lower lung acute atelectasis and/or infiltrate. Osseous structures remain demineralized. Left lung is clear. IMPRESSION: Overall stable findings, chronic emphysematous change and cardiomegaly with small to mo derate size right pleural effusion and associated right mid to basilar acute atelectasis and/or infil trate are redemonstrated.
[2020-01-15 11:50] LABS: Glucose,Whole Blood 328 mg/dL (75-99)
[2020-01-15 12:05] VITALS: TEMP 97.4
[2020-01-15] MEDS: THIAMINE 100 MG TAB PO SCH (12:58)
[2020-01-15] MEDS: FOLIC ACID 1 MG TAB PO SCH (12:59)
[2020-01-15] MEDS: methylPREDNISolone SOD SUCCI 40 MG/ML 1 ML VIAL IV SCH ×2 (12:59→18:12)
[2020-01-15] MEDS: MULTIVITAMINS, THERA 1 EACH TAB PO SCH (12:59)
--- NOTE | 2020-01-15 14:29 | P.PN ---
Subjective Progress Note Date: 01/15/20 Principal diagnosis: This is an 85-year-old male who was recently admitted with multiple medical problems along with right pleural effusion and is being closely monitored. Patient is status post thoracentesis of the right and current cultures and pathology are pending at this time. Approximately 1.2 L were drained from the right pleural effusion. Pulmonary is following closely. Case management and social work also following and working on possible ECF once stabilized and d ischarged for continued PT/OT therapy. Patient continues to be quite weak and confused at this time. Patient is a little more alert with daughter at the bedside. Patient is afebrile. Review of systems: Unable to obtain as patient continues to be confused 01/15/2020 Patient is seen and evaluated in follow-up today and states he feels slightly more short of breath. Patient is maintained on DuoNeb treatments and will add Solu-Medrol and a chest x-ray. Chest x-ray shows overall stable findings with chronic emphysematous change in cardiomegaly with small to moderate size right pleural effusion and associated right mid to basilar acute atelectasis and/or infiltrate redemonstrated. Patient is status post thoracentesis a few days ago. Cytology is still pending at this time. Pulmonary following. Patient is currently maintained on IV antibiotics and will continue at this time. PT/OT fo llowing the patient as patient continues to be quite weak and lethargic and will require rehab once stabilized and discharged. Case management and social work following for placement at [facility]. Creatinine is also slightly worse at 2.46 today. Nephrology following. IV fluids have been discontinued. Will continue to monitor closely. Review of systems: Constitutional: No reports of fevers or chills Cardiovascular: No reports of chest pain or palpitations Respiratory: Reports shortness of breath GI: Reports decreased appetite with no reports of nausea or vomiting : No reports of urinary retention or dysuria, has indwelling Hearn catheter Neurovascular: Reports weakness Active Medications Acetaminophen (Tylenol Tab) 650 mg PO Q6HR PRN PRN Reason: Mild Pain or Fever > 100.5 Last Admin: 01/08/20 03:27 Dose: 650 mg Documented by: Hydrocodone Bitart/Acetaminophen ([facility] 5-325) 1 each PO Q6HR PRN PRN Reason: MODERATE Pain IF TAKING PO MED Last Admin: 01/09/20 00:26 Dose: 1 each Documented by: Al Hydroxide/Mg Hydroxide (Maalox) 15 ml PO Q6HR PRN PRN Reason: Indigestion Albuterol/Ipratropium (Duoneb 0.5 Mg-3 Mg/3 Ml Soln) 3 ml INHALATION RT-QID PRN PRN Reason: Shortness Of Breath Or Wheezing Albuterol/Ipratropium (Duoneb 0.5 Mg-3 Mg/3 Ml Soln) 3 ml INHALATION RT-QID [facility] Last Admin: 01/15/20 10:52 Dose: 3 ml Documented by: Alprazolam (Xanax) 0.25 mg PO Q6HR PRN PRN Reason: Anxiety Last Admin: 01/13/20 08:38 Dose: 0.25 mg Documented by: Budesonide (Pulmicort) 1 mg INHALATION RT-BID [facility] Last Admin: 01/15/20 07:08 Dose: 1 mg Documented by: Budesonide (Pulmicort) 1 mg INHALATION RT-BID [facility] Calcium Carbonate/Glycine (Tums) 1,000 mg PO Q4HR PRN PRN Reason: Dyspepsia Diclofenac Sodium (Voltaren Gel) 4 gm TOPICAL QID [facility] Last Admin: 01/15/20 13:01 Dose: 4 gm Documented by: Famotidine (Pepcid) 20 mg IV DAILY [facility] Last Admin: 01/15/20 09:14 Dose: 20 mg Documented by: Folic Acid (Folic Acid) 1 mg PO DAILY@1200 [facility] Last Admin: 01/15/20 12:59 Dose: 1 mg Documented by: Formoterol Fumarate (Perforomist) 20 mcg INHALATION RT-BID [facility] Last Admin: 01/15/20 07:08 Dose: 20 mcg Documented by: Heparin Sodium (Porcine) (Heparin) 5,000 unit SQ Q12HR [facility] Last Admin: 01/15/20 08:23 Dose: 5,000 unit Documented by: Hydromorphone HCl (Dilaudid) 0.5 mg IVP Q3HR PRN PRN Reason: Moderate Pain IF NPO Last Admin: 01/08/20 01:38 Dose: 0.5 mg Documented by: Piperacillin Sod/Tazobactam (Sod 3.375 gm/ Sodium Chloride) 100 mls @ 25 mls/hr IVPB Q8H [facility] Last Admin: 01/15/20 09:14 Dose: 25 mls/hr Documented by: Insulin Aspart (Novolog) 0 unit SQ [facility]; Protocol Last Admin: 01/15/20 13:00 Dose: 6 unit Documented by: Lactulose (Cephulac) 20 gm PO DAILY PRN PRN Reason: Constipation Latanoprost (Xalatan 0.005%) 1 drops [facility]OTH [facility] Last Admin: 01/14/20 21:10 Dose: 1 drops Documented by: Levothyroxine Sodium (Synthroid) 112 mcg PO DAILY@0800 [facility] Last Admin: 01/15/20 08:23 Dose: 112 mcg Documented by: Magnesium Hydroxide (Milk Of Magnesia) 2,400 mg PO DAILY PRN PRN Reason: Constipation Melatonin (Melatonin) 3 mg PO HS PRN PRN Reason: Insomnia Methylprednisolone Sodium Succinate (Solu-Medrol) 40 mg IV Q6HR [facility] Last Admin: 01/15/20 12:59 Dose: 40 mg Documented by: Metoprolol Succinate (Toprol Xl) 25 mg PO DAILY@0800 [facility] Last Admin: 01/15/20 08:23 Dose: 25 mg Documented by: Midodrine (Proamatine) 10 mg PO AC-TID [facility] Last Admin: 01/15/20 12:59 Dose: 10 mg Documented by: Morphine Sulfate (Morphine Sulfate (Inj)) 4 mg IV Q4HR PRN PRN Reason: Severe Pain Last Admin: 01/04/20 20:35 Dose: 4 mg Documented by: Multivitamins (Theragran) 1 each PO DAILY@1200 [facility] Last Admin: 01/15/20 12:59 Dose: 1 each Documented by: Naloxone HCl (Narcan) 0.2 mg IV Q2M PRN PRN Reason: Opioid Reversal Dulaglutide [ (Trulicity] 1.5 Mg) 1.5 mg SQ SA@0800 [facility] Ondansetron HCl (Zofran) 4 mg IVP Q8HR PRN PRN Reason: Nausea And Vomiting Polyethylene Glycol (Miralax) 17 gm PO DAILY PRN PRN Reason: Constipation Risperidone (Risperdal) 0.125 mg PO [facility] Last Admin: 01/14/20 20:35 Dose: 0.125 mg Documented by: Sodium Bicarbonate (Sodium Bicarbonate Tab) 650 mg PO BID [facility] Last Admin: 06/23/20 08:23 Dose: 650 mg Documented by: Thiamine HCl (Vitamin B-1) 100 mg PO DAILY@1200 [facility] Last Admin: 01/15/20 12:58 Dose: 100 mg Documented by: Objective - Vital Signs Vital signs: Vital Signs Temp 97.4 F L 01/15/20 12:04 Pulse 111 H 01/15/20 12:04 Resp 18 01/15/20 12:04 BP 107/79 01/15/20 12:04 Pulse Ox 100 01/15/20 12:04 Intake & Output 01/14/20 01/15/20 01/15/20 18:59 06:59 18:59 Intake Total 900 1060 Output Total 200 200 Balance 700 860 Weight 68.5 kg Intake: Intake, IV Titration 400 700 Amount Lactated Ringers 1,000 ml 400 500 @ 50 mls/hr IV .Q20H [facility] Rx#:[id number] Piperacillin-Tazobactam 3 200 .375 gm In Sodium Chloride 0.9% 100 ml @ 25 mls/hr IVPB Q8H [facility] Rx#: [id number] Oral 500 360 Output: Urine 200 200 Uretheral (Hearn) 200 Other: Voiding Method Diaper Diaper Indwelling Catheter Indwelling Catheter Indwelling Catheter # Bowel Movements 1 - Exam Gen: This is a 85-year-old male lying in bed, awake, alert and oriented 1. Confused slightly more alert today. Temp is 97.4F, pulse is 111, respirations are 18, blood pressure is 107/79, oxygen saturation is 100% on 3 L via nasal cannula. HEENT: Head is atraumatic, normocephalic. Pupils equal, round. Sclerae is anic teric. NECK: Supple. No JVD. No lymphadenopathy. No thyromegaly. LUNGS: Diminished breath sounds at the bases with a few scattered rhonchi and crackles noted. Right more so than the left. No intercostal retractions. HEART: S1, S2 are full. ABDOMEN: Soft. Bowel sounds are present. No masses. No tenderness. EXTREMITIES: No pedal edema. No calf tenderness. NEUROLOGICAL: Patient is awake, alert and oriented x1. Diffusely weak - Labs CBC & Chem 7: 01/15/20 07:06 01/15/20 07:06 Labs: Abnormal Lab Results - Last 24 Hours (Table) 01/14/20 01/14/2001/14/20 Range/Units 17:11 19:57 07:06 RBC 2.77 L (4.30-5.90) m/uL Hgb 10.3 L (13.0-17.5) gm/dL Hct 32.4 L (39.0-53.0) % MCV 117.0 H D (80.0-100.0) fL MCH 37.2 H (25.0-35.0) pg RDW 15.7 H (11.5-15.5) % Lymphocytes # 0.6 L (1.0-4.8) k/uL Macrocytosis Marked A Chloride (98-107) mmol/L BUN (9-20) mg/dL Creatinine (0.66-1.25) mg/dL Glucose (74-99) mg/dL POC Glucose (mg/dL) 225 H 222 H (75-99) mg/dL 01/15/20 01/15/20 01/15/20 Range/Units 07:06 07:17 11:48 RBC (4.30-5.90) m/uL Hgb (13.0-17.5) gm/dL Hct (39.0-53.0) % MCV (80.0-100.0) fL MCH (25.0-35.0) pg RDW (11.5-15.5) % Lymphocytes # (1.0-4.8) k/uL Macrocytosis Chloride 108 H (98-107) mmol/L BUN 61 H (9-20) mg/dL Creatinine 2.46 H (0.66-1.25) mg/dL Glucose 145 H (74-99) mg/dL POC Glucose (mg/dL) 167 H 328 H (75-99) mg/dL Microbiology - Last 24 Hours (Table) 01/14/20 12:30 Urine Culture - Preliminary Urine,Catheterized 01/11/20 11:30 Gram Stain - Preliminary Pleural Fluid Body Fluid Culture - Preliminary Assessment and Plan Assessment: Shortness of breath secondary to pleural effusion, right Chronic obstructive pulmonary disease, acute exacerbation Status post right pleural effusion, thoracentesis Change in mental status, metabolic encephalopathy, acute, multifactorial 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 Computed tomography scan of the chest showing masslike atelectasis Acute kidney injury with acute renal failure with acute tubular necrosis Chronic kidney disease stage III baseline Acute urinary tract infection, present on admission Acute right knee hemarthrosis Falling gait dysfunction Metabolic encephalopathy secondary to above and change in mental status Generalized weakness Chronic right-sided pleural effusion History of nicotine dependence Hypertension Diabetes mellitus type 2 History of gait dysfunction Persistent atrial fibrillation Chronic degenerative joint disease Hypothyroidism Gastroesophageal reflux disease History of mitral regurgitation Severe tricuspid regurgitation History of pulmonary hypertension secondary to chronic obstructive pulmonary disease No code, no CPR, no vent Recommendations and discussion: Recommend continue current medications, management, and symptomatic treatment. Multiple medical consultations following. Patient currently remains on IV antibiotics and will continue at this time. Chest x-ray repeated which shows stable emphysematous findings and redemonstrated [id number] size right pleural effusion and associated right mid to basilar acute atelectasis and/or infiltrate. Patient will continue with DuoNeb's and IV steroids have been added along with Pulmicort. IV fluids have been discontinued. PT/OT to continue following this patient will likely need ECF rehab once stabilized and discharged. Case management and social work following for possible placement in discharge planning needs. Due to multiple complex medical issues, prognosis is extremely guarded. Further recommendations to follow.
[2020-01-15 17:07] LABS: Glucose,Whole Blood 302 mg/dL (75-99)
[2020-01-15] MEDS ORDERED: BUDESONIDE 1 MG/2 ML NEBU INHALATION SCH (20:00)
[2020-01-15 20:19] LABS: Glucose,Whole Blood 338 mg/dL (75-99)
[2020-01-15] MEDS: LATANOPROST 0.005% OPHTH DROPS 2.5 ML BTL BOTH EYES SCH (21:00)
[2020-01-15] MEDS: risperiDONE 0.25 MG TAB PO SCH (21:01)
[2020-01-16] MEDS: methylPREDNISolone SOD SUCCI 40 MG/ML 1 ML VIAL IV SCH ×2 (00:06→05:42)
[2020-01-16] MEDS: PIPERACILLIN-TAZOBACTAM 3.375 GM in SODIUM CHLORIDE 0.9% 100 ML IVPB SCH ×2 (01:41→07:16)
[2020-01-16] MEDS: IPRATROPIUM-ALBUTEROL 3 ML NEB INHALATION PRN (04:08)
[2020-01-16 05:42] VITALS: BP 116/82
[2020-01-16 07:00] LABS: Glucose,Whole Blood 203 mg/dL (75-99)
[2020-01-16] MEDS: SODIUM BICARBONATE TAB 650 MG TAB PO SCH (07:14)
[2020-01-16] MEDS: MULTIVITAMINS, THERA 1 EACH TAB PO SCH (07:14)
[2020-01-16] MEDS: THIAMINE 100 MG TAB PO SCH (07:14)
[2020-01-16] MEDS: FOLIC ACID 1 MG TAB PO SCH (07:14)
[2020-01-16] MEDS: METOPROLOL SUCCINATE (ER) 25 MG TAB.ER.24H PO SCH (07:14)
[2020-01-16] MEDS: INSULIN ASPART (NovoLOG) 100 UNIT/ML VIAL SQ SCH ×2 (07:15→11:52)
[2020-01-16] MEDS: HEPARIN SODIUM,PORCINE 5,000 UNIT/ML 1 ML VIAL SQ SCH (07:15)
[2020-01-16] MEDS: FAMOTIDINE 20 MG/2 ML VIAL IV SCH (07:16)
[2020-01-16] MEDS: DICLOFENAC SODIUM GEL 100 GM TUBE TOPICAL SCH ×2 (07:23→11:53)
[2020-01-16] MEDS: LEVOTHYROXINE 112 MCG TAB PO SCH (07:28)
[2020-01-16] MEDS: MIDODRINE 5 MG TAB PO SCH ×2 (07:28→11:52)
[2020-01-16 07:49] LABS: Magnesium 2.1 mg/dL (1.6-2.3); Potassium 5.6 mmol/L (3.5-5.1)
[2020-01-16 08:20] LABS: Anisocytosis Slight; Basophils % (A) 0 %; Eosinophils % (A) 0 %; HCT 35.7 % (39.0-53.0); HGB 11.1 gm/dL (13.0-17.5); Hypochromasia Marked; Lymphocytes # (A) 0.3 k/uL (1.0-4.8); Lymphocytes % (A) 3 %; MCH 37.9 pg (25.0-35.0); MCHC 31.2 g/dL (31.0-37.0); MCV 121.6 fL (80.0-100.0); Macrocytosis Marked; Mean Platelet Volume 10.4; Monocytes # (A) 0.2 k/uL (0-1.0); Monocytes % (A) 2 %; Neutrophils # (A) 8.7 k/uL (1.3-7.7); Neutrophils % (A) 94 %; Platelet Count 209 k/uL (150-450); RBC 2.93 m/uL (4.30-5.90); RDW 16.2 % (11.5-15.5); WBC 9.3 k/uL (3.8-10.6)
[2020-01-16] MEDS: FORMOTEROL FUMARATE 20 MCG/2 ML NEBU INHALATION SCH (08:42)
[2020-01-16] MEDS: IPRATROPIUM-ALBUTEROL 3 ML NEB INHALATION SCH ×3 (08:42→15:38)
[2020-01-16] MEDS: BUDESONIDE 1 MG/2 ML NEBU INHALATION SCH (08:43)
[2020-01-16] MEDS ORDERED: AMOXIC-POT CLAV 875-125MG 1 EACH TAB PO SCH (09:00)
[2020-01-16] MEDS ORDERED: predniSONE 20 MG TAB PO SCH (09:00)
[2020-01-16] MEDS ORDERED: FAMOTIDINE 20 MG TAB PO SCH (09:00)
[2020-01-16 09:48] LABS: Crenated RBC Present; Poikilocytosis (M) Present; Polychromasia Present
[2020-01-16] MEDS ORDERED: SODIUM POLYSTYRENE SULFONATE 15 GM/60 ML BOTTLE PO STA (09:56)
[2020-01-16 11:34] LABS: Glucose,Whole Blood 404 mg/dL (75-99)
[2020-01-16] MEDS: ALPRAZolam 0.25 MG TAB PO PRN (11:52)
--- NOTE | 2020-01-16 13:03 | P.DS ---
Providers Date of admission: 01/05/20 08:29 Expected date of discharge: 01/16/20 Attending physician: Ramez Redman Consults: 01/03/20 20:23 Consult Physician Stat Consulting Provider: Gilberto Merida Consult Reason/Comments: Right knee injury Do you want consulting provider notified?: Yes 01/06/20 11:22 Consult Physician Routine Consulting Provider: Ellis Esteban Consult Reason/Comments: decrease PO during the night into the 80's -family request, known to the gr Do you want consulting provider notified?: Yes 01/07/20 08:52 Consult Physician Routine Consulting Provider: Declan Yusuf Consult Reason/Comments: [place] Do you want consulting provider notified?: Yes Primary care physician: Jesse Gee Hospital Course: Final diagnosis Shortness of breath secondary to pleural effusion, right Chronic obstructive pulmonary disease, acute exacerbation Status post right pleural effusion, thoracentesis Change in mental status, metabolic encephalopathy, acute, multifactorial 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 Computed tomography scan of the chest showing masslike atelectasis Acute kidney injury with acute renal failure with acute tubular necrosis Chronic kidney disease stage III baseline Acute urinary tract infection, present on admission Acute right knee hemarthrosis Falling gait dysfunction Metabolic encephalopathy secondary to above and change in mental status Generalized weakness Chronic right-sided pleural effusion History of nicotine dependence Hypertension Diabetes mellitus type 2 History of gait dysfunction Persistent atrial fibrillation Chronic degenerative joint disease Hypothyroidism Gastroesophageal reflux disease History of mitral regurgitation Severe tricuspid regurgitation History of pulmonary hypertension secondary to chronic obstructive pulmonary disease No code, no CPR, no vent Discharge disposition Patient is being discharged in a stable condition with guarded prognosis to [facility] for continued PT/OT therapy. Patient will continue with oral antibiotics in the form of Augmentin twice daily for the next 7 days and then may discontinue. Patient will also continue with breathing treatments and a prednisone taper upon discharge. Patient will follow-up with Dr. Hook as well as nephrology in the outpatient setting. Total time taken is greater than 35 minutes. History of present illness This is a 85-year-old male who was recently admitted with multiple medical problems along with right pleural effusion and was being closely monitored. Patient was seen and evaluated by pulmonary recently underwent thoracentesis of the right pleural effusion with approximately 1.2 L removed. Pathology was sent although is pending at this time. Patient will continue on breathing treatments, oral antibiotics in the form of Augmentin for 1 week, and a prednisone taper. Patient continues to be quite weak and lethargic and will need continued PT/OT therapy. Family members to discuss palliative versus hospice in the outpatient setting. Patient will be going to [facility] on the [place] for continued PT/OT therapy. Scripts were provided for repeat labs in a few d ays to monitor kidney functions. Patient continues to be confused. Currently no reports of chest pain, worsening shortness of breath, or palpitations. Patient is afebrile. No reports of nausea or vomiting and patient is tolerating diet. Patient to continue monitoring blood sugars before meals at bedtime and treat accordingly with sliding scale. Patient will continue on a prednisone taper along with breathing treatments in the outpatient setting. Patient will be discharged to [facility] today. Extremely Guarded prognosis. On exam vital signs are stable. Temp is 97.4F, pulse is 105, respirations are 16, blood pressure is 116/82, oxygen saturation is 100% on 2 L via nasal cannula. Cardio S1, S2 are muffled. Respiratory system shows diminished breath sounds at the bases with a few scattered rhonchi noted. Abdomen is soft and nontender. Nervous system shows mild diffuse weakness. Please refer to medication reconciliation sheet for a list of medications. Patient Condition at Discharge: Good Plan - Discharge Summary Discharge Rx Participant: No New Discharge Prescriptions: New Amoxic-Pot Clav 875-125Mg [Augmentin 875-125] 1 each PO Q12HR 7 Days #14 tab Lactulose [Cephulac] 20 gm PO DAILY PRN ml PRN Reason: Constipation Ipratropium-Albuterol Nebulize [Duoneb 0.5 mg-3 mg/3 ml Soln] 3 ml INHALATION RT-QID ml Ipratropium-Albuterol Nebulize [Duoneb 0.5 mg-3 mg/3 ml Soln] 3 ml INHALATION RT-QID PRN ml PRN Reason: Shortness Of Breath Or Wheezing Folic Acid 1 mg PO DAILY@1200 tab Mag Hydrox/Al Hydrox/Simeth [Maalox] 15 ml PO Q6HR PRN ml PRN Reason: Indigestion Melatonin 3 mg PO HS PRN tablet PRN Reason: Insomnia Magnesium Hydroxide [Milk of Magnesia Concentrate] 2,400 mg PO DAILY PRN ml PRN Reason: Constipation Multivitamins, Thera [Multivitamin (formulary)] 1 each PO DAILY@1200 tab HYDROcodone/APAP 5-325MG [Crocker 5-325] 1 each PO Q6HR PRN #10 tab PRN Reason: MODERATE Pain IF TAKING PO MED INSULIN ASPART (NovoLOG) [NovoLOG (formulary)] 0 unit SQ ACHS vial Famotidine [Pepcid] 20 mg PO DAILY tab predniSONE 10 mg PO DIRECTED #30 tab Midodrine [ProAmatine] 10 mg PO AC-TID tab Budesonide [Pulmicort] 1 mg INHALATION RT-BID ml risperiDONE [RisperDAL] 0.125 mg PO HS #4 tab Sodium Bicarbonate Tab 650 mg PO BID tab Metoprolol Succinate (ER) [Toprol XL] 25 mg PO DAILY@0800 tab.er.24h Calcium Carbonate [Tums] 1,000 mg PO Q4HR PRN chew PRN Reason: Dyspepsia Acetaminophen Tab [Tylenol] 650 mg PO Q6HR PRN tab PRN Reason: Mild Pain Or Fever > 100.5 Thiamine [Vitamin B-1] 100 mg PO DAILY@1200 tab Diclofenac Sodium Gel [Voltaren Gel] 4 gm TOPICAL QID tube ALPRAZolam [Xanax] 0.25 mg PO Q6HR PRN #4 tab PRN Reason: Anxiety Continue Ferrous Gluconate 324 mg PO DAILY@0800 Levothyroxine Sodium [Synthroid] 112 mcg PO DAILY@0800 Dulaglutide [Trulicity] 1.5 mg SQ SA@0800 Polyethylene Glycol 3350 [Miralax] 17 gm PO DAILY PRN PRN Reason: Constipation Budesonide-Formot 160-4.5 Mcg [Symbicort 160-4.5 Mcg Inhaler] 2 puff INHALATION RT-BID@0800,1999 Latanoprost/Pf [Latanoprost 0.005% Eye Drop] 1 drop BOTH EYES HS Cefuroxime Axetil [Ceftin] 500 mg PO BID #14 tab Discontinued metFORMIN HCL [Glucophage] 500 mg PO BID@0800,1999 Spironolactone 12.5 mg PO DAILY@0800 Metoprolol Succinate [Toprol XL] 75 mg PO DAILY@0800 Furosemide [Lasix] 40 mg PO DAILY@0800 Ipratropium-Albuterol Nebulize [Duoneb 0.5 mg-3 mg/3 ml Soln] 3 ml INHALATION RT-TID Discharge Medication List Ferrous Gluconate 324 mg PO DAILY@0812/08/18 [History] Dulaglutide [Trulicity] 1.5 mg SQ SA@0806/15/19 [History] Levothyroxine Sodium [Synthroid] 112 mcg PO DAILY@0806/15/19 [History] Budesonide-Formot 160-4.5 Mcg [Symbicort 160-4.5 Mcg Inhaler] 2 puff INHALATION RT-BID@08,199909/26/19 [History] Polyethylene Glycol 3350 [Miralax] 17 gm PO DAILY PRN 09/26/19 [History] Latanoprost/Pf [Latanoprost 0.005% Eye Drop] 1 drop BOTH EYES HS 12/28/19 [History] Cefuroxime Axetil [Ceftin] 500 mg PO BID #14 tab 12/29/19 [Rx] ALPRAZolam [Xanax] 0.25 mg PO Q6HR PRN #4 tab 01/16/20 [Rx] Acetaminophen Tab [Tylenol] 650 mg PO Q6HR PRN tab 01/16/20 [Rx] Amoxic-Pot Clav 875-125Mg [Augmentin 875-125] 1 each PO Q12HR 7 Days #14 tab 01/16/20 [Rx] Budesonide [Pulmicort] 1 mg INHALATION RT-BID ml 01/16/20 [Rx] Calcium Carbonate [Tums] 1,000 mg PO Q4HR PRN chew 01/16/20 [Rx] Diclofenac Sodium Gel [Voltaren Gel] 4 gm TOPICAL QID tube 01/16/20 [Rx] Famotidine [Pepcid] 20 mg PO DAILY tab 01/16/20 [Rx] Folic Acid 1 mg PO DAILY@1200 tab 01/16/20 [Rx] HYDROcodone/APAP 5-325MG [Crocker 5-325] 1 each PO Q6HR PRN #10 tab 01/16/20 [Rx] INSULIN ASPART (NovoLOG) [NovoLOG (formulary)] 0 unit SQ ACHS vial 01/16/20 [Rx] Ipratropium-Albuterol Nebulize [Duoneb 0.5 mg-3 mg/3 ml Soln] 3 ml INHALATION RT-QID ml 01/16/20 [Rx] Ipratropium-Albuterol Nebulize [Duoneb 0.5 mg-3 mg/3 ml Soln] 3 ml INHALATION RT-QID PRN ml 01/16/20 [Rx] Lactulose [Cephulac] 20 gm PO DAILY PRN ml 01/16/20 [Rx] Mag Hydrox/Al Hydrox/Simeth [Maalox] 15 ml PO Q6HR PRN ml 01/16/20 [Rx] Magnesium Hydroxide [Milk of Magnesia Concentrate] 2,400 mg PO DAILY PRN ml 01/16/20 [Rx] Melatonin 3 mg PO HS PRN tablet 01/16/20 [Rx] Metoprolol Succinate (ER) [Toprol XL] 25 mg PO DAILY@0800 tab.er.24h 01/16/20 [Rx] Midodrine [ProAmatine] 10 mg PO AC-TID tab 01/16/20 [Rx] Multivitamins, Thera [Multivitamin (formulary)] 1 each PO DAILY@1200 tab 01/16/20 [Rx] Sodium Bicarbonate Tab 650 mg PO BID tab 01/16/20 [Rx] Thiamine [Vitamin B-1] 100 mg PO DAILY@1200 tab 01/16/20 [Rx] predniSONE 10 mg PO DIRECTED #30 tab 01/16/20 [Rx] risperiDONE [RisperDAL] 0.125 mg PO HS #4 tab 01/16/20 [Rx] Follow up Appointment(s)/Referral(s): Geri Hilliard MD [STAFF PHYSICIAN] - 01/24/20 11:00 am ([employer]) Jesse Gee MD [Primary Care Provider] - 01/18/20 11:45 am Ean Hook DO [Doctor of Osteopathic Medicine] - 02/06/20 2:00 pm (Nut Roaster Helper) Ambulatory/Diagnostic Orders: Basic Metabolic Panel [LAB.AMB] Time Frame: 2 Days, Location: None Selected Patient Instructions/Handouts: Fall Prevention (ED) Activity/Diet/Wound Care/Special Instructions: Patient is going to [facility] on the [employer] Activity as tolerated Continue antibiotics for 7 days then may discontinue Continue current diet Repeat labs in 2-3 days Continue to monitor blood sugars before meals at bedtime and treat accordingly with sliding scale Home [facility] - [facility] [phone] Discharge Disposition: TRANSFER TO SNF/ECF
[2020-01-16 15:40] VITALS: RESP 20
[2020-01-16 15:45] VITALS: PULSE 111
--- NOTE | 2020-01-16 18:19 | P.PN ---
Subjective Patient is seen in follow-up for acute kidney injury. Resting in bed. Not a reliable historian. Blood pressure stable. Has a Hearn catheter. Urine output 1 L so far today. Vital signs are stable. General: The patient appeared well nourished and normally developed. HEENT: Head exam is unremarkable. Neck is without jugular venous distension. LUNGS: Breath sounds decreased. HEART: Rate and Rhythm are regular. ABDOMEN: soft, nontender. EXTREMITITES: No edema. Objective - Vital Signs Vital signs: Vital Signs Temp 97.4 F L 01/15/20 20:15 Pulse 111 H 01/16/20 15:44 Resp 20 01/16/20 15:44 BP 116/82 01/16/20 05:10 Pulse Ox 100 01/16/20 05:10 Intake & Output 01/15/20 01/16/20 01/16/20 18:59 06:59 18:59 Intake Total 500 Output Total 700 300 Balance 500 -700 -300 Intake: Intake, IV Titration 150 Amount Lactated Ringers 1,000 ml 150 @ 50 mls/hr IV .Q20H [facility] Rx#:[id number] Oral 350 Output: Urine 700 300 Other: Voiding Method Indwelling Catheter Indwelling Catheter Indwelling Catheter # Voids 0 # Bowel Movements 1 - Labs CBC & Chem 7: 01/16/20 06:39 01/16/20 06:39 Labs: Abnormal Lab Results - Last 24 Hours (Table) 01/15/20 01/16/20 01/16/20 Range/Units 20:16 06:39 06:39 RBC 2.93 L (4.30-5.90) m/uL Hgb 11.1 L (13.0-17.5) gm/dL Hct 35.7 L (39.0-53.0) % MCV 121.6 H (80.0-100.0) fL MCH 37.9 H (25.0-35.0) pg RDW 16.2 H (11.5-15.5) % Neutrophils # 8.7 H (1.3-7.7) k/uL Lymphocytes # 0.3 L (1.0-4.8) k/uL Macrocytosis Marked A Potassium 5.6 H (3.5-5.1) mmol/L Carbon Dioxide 21 L (22-30) mmol/L BUN 67 H (9-20) mg/dL Creatinine 2.32 H (0.66-1.25) mg/dL Glucose 182 H (74-99) mg/dL POC Glucose (mg/dL) 338 H (75-99) mg/dL 01/16/20 01/16/20 Range/Units 06:58 11:27 RBC (4.30-5.90) m/uL Hgb (13.0-17.5) gm/dL Hct (39.0-53.0) % MCV (80.0-100.0) fL MCH (25.0-35.0) pg RDW (11.5-15.5) % Neutrophils # (1.3-7.7) k/uL Lymphocytes # (1.0-4.8) k/uL Macrocytosis Potassium (3.5-5.1) mmol/L Carbon Dioxide (22-30) mmol/L BUN (9-20) mg/dL Creatinine (0.66-1.25) mg/dL Glucose (74-99) mg/dL POC Glucose (mg/dL) 203 H 404 H (75-99) mg/dL Microbiology - Last 24 Hours (Table) 01/14/20 12:30 Urine Culture - Preliminary Urine,Catheterized Yeast species 01/11/20 11:30 Gram Stain - Final Pleural Fluid Body Fluid Culture - Final Assessment and Plan Plan: assessment: 1. Acute kidney injury secondary to ATN secondary to hypotension. Renal function stable the last few days. Creatinine 2.32 today. No hydronephrosis and kidney ultrasound. Currently has Hearn catheter. Urine eosinophils negativ e. 2. Right knee hemarthrosis status post arthrocentesis. 3. Hypotension maintained on midodrine. Cortisol level normal. 4. Metabolic acidosis status post IV bicarb. Maintained on oral sodium bi carbonate. 5. Right pleural effusion status post thoracentesis with 1.2 L drained. 6. Chronic systolic CHF with ejection fraction of 45-50% with diastolic dysfunction, moderate to severe mitral and tricuspid regurgitation. 7. Severe pulmonary hypertension. 8. Mild hyperkalemia secondary to acute kidney injury and metabolic acidosis. Plan: Patient has been discharged to rehab facility. Patient received a dose of Kayexalate prior to discharge. Repeat BMP in 1-2 days postdischarge. Follow up outpatient in 1-2 weeks.
[2020-01-19] MEDS ORDERED: Dulaglutide [Trulicity] 1.5 MG SQ SCH (08:00)
== END 2020-01-16 16:22 | DRG 553 ==
LOC: EC 17:27 → 3SCARD 21:05 → OBSVTOIN 01-05 08:29 → 5NMEDONC 01-05 16:25
PROVIDERS: ADMIT Hospitalist; ATTEND Hospitalist
PROC: 0S9C3ZZ Drainage of Right Knee Joint, Percutaneous Approach (ICD-10-PCS; principal; 2020-01-04)
PROC: 3E0U33Z Introduction of Anti-inflammatory into Joints, Percutaneous Approach (ICD-10-PCS; 2020-01-04)
PROC: 3E0U3BZ Introduction of Anesthetic Agent into Joints, Percutaneous Approach (ICD-10-PCS; 2020-01-04)
PROC: 0W993ZZ Drainage of Right Pleural Cavity, Percutaneous Approach (ICD-10-PCS; 2020-01-11)
DX: M25.061 Hemarthrosis, right knee (principal); N17.0 Acute kidney failure with tubular necrosis; G93.41 Metabolic encephalopathy; J90 Pleural effusion, not elsewhere classified; I13.0 Hypertensive heart and chronic kidney disease with heart failure and stage 1 through stage 4 chronic kidney disease, or unspecified chronic kidney disease; E87.2 Acidosis; I42.9 Cardiomyopathy, unspecified; J44.1 Chronic obstructive pulmonary disease with (acute) exacerbation; I50.22 Chronic systolic (congestive) heart failure; I48.19 Other persistent atrial fibrillation; K56.7 Ileus, unspecified; J98.11 Atelectasis; N39.0 Urinary tract infection, site not specified; I27.29 Other secondary pulmonary hypertension; D63.1 Anemia in chronic kidney disease; Z11.59 Encounter for screening for other viral diseases; N18.3 Chronic kidney disease, stage 3 (moderate); E11.40 Type 2 diabetes mellitus with diabetic neuropathy, unspecified; E11.22 Type 2 diabetes mellitus with diabetic chronic kidney disease; I95.9 Hypotension, unspecified; Z66 Do not resuscitate; F10.20 Alcohol dependence, uncomplicated; G31.9 Degenerative disease of nervous system, unspecified; F03.90 Unspecified dementia, unspecified severity, without behavioral disturbance, psychotic disturbance, mood disturbance, and anxiety; E89.0 Postprocedural hypothyroidism; M47.814 Spondylosis without myelopathy or radiculopathy, thoracic region; K57.30 Diverticulosis of large intestine without perforation or abscess without bleeding; F17.210 Nicotine dependence, cigarettes, uncomplicated; K21.9 Gastro-esophageal reflux disease without esophagitis; F41.9 Anxiety disorder, unspecified; F32.9 Major depressive disorder, single episode, unspecified; M81.0 Age-related osteoporosis without current pathological fracture; M25.461 Effusion, right knee; I08.1 Rheumatic disorders of both mitral and tricuspid valves; E87.5 Hyperkalemia; R32 Unspecified urinary incontinence; R26.9 Unspecified abnormalities of gait and mobility; G47.00 Insomnia, unspecified; K76.9 Liver disease, unspecified; W05.0XXA Fall from non-moving wheelchair, initial encounter; Z71.3 Dietary counseling and surveillance; Z79.899 Other long term (current) drug therapy; Z79.890 Hormone replacement therapy; Z79.51 Long term (current) use of inhaled steroids; Z79.84 Long term (current) use of oral hypoglycemic drugs; Z92.3 Personal history of irradiation; Z87.11 Personal history of peptic ulcer disease; Z85.828 Personal history of other malignant neoplasm of skin; Z85.850 Personal history of malignant neoplasm of thyroid; Z86.15 Personal history of latent tuberculosis infection; Z85.46 Personal history of malignant neoplasm of prostate; Z87.01 Personal history of pneumonia (recurrent); Z87.19 Personal history of other diseases of the digestive system; Z91.81 History of falling; Z98.42 Cataract extraction status, left eye; Z98.41 Cataract extraction status, right eye; Z90.49 Acquired absence of other specified parts of digestive tract; Z98.890 Other specified postprocedural states; Z88.6 Allergy status to analgesic agent; Z82.5 Family history of asthma and other chronic lower respiratory diseases; Z82.3 Family history of stroke
CPT/HCPCS: 36415; 70450; 71045; 71046; 74018; 74176; 76604; 76770; 80048; 80053; 81001; 82533; 82945; 83615; 83735; 84145; 84157; 85025; 85610; 85730; 87070; 87086; 87102; 87116; 87205; 87206; 87252; 87496; 87498; 87502; 87529; 87634; 87798; 88108; 88305; 89050; 93005; 94640; 94760; 96361; 96374; 99285

== ENCOUNTER 2020-01-17 12:18 | Inpatient (IN) | payer MEDICARE, OTHER ==
--- NOTE | 2020-01-17 12:33 | ED ---
General Adult HPI - General Stated complaint: Blood in cath Time Seen by Provider: 01/17/20 12:21 Source: EMS Mode of arrival: EMS Limitations: altered mental status - History of Present Illness Initial comments: Dictation was produced using [employer] dictation software. please excuse any grammatical, word or spelling errors. This patient was cared for during a federal and state declared state of emergency secondary to Covid 19 Chief Complaint: 85-year-old gentleman transferred via EMS from [facility] on the [facility] facility for hematuria History of Present Illness: Is 85-year-old gentleman. He has multiple comorbidities. Patient has had a Hearn catheter has been placed since his previous hospital admission. Attempt was made by [facility] staff to remove the Hearn. Upon deflating the balloon it was of note that patient had large amounts of hematuria. This measured that patient's hematuria was approximately 300-400 mL and volume. Balloon was reinflated by [facility] staff and patient was brought to the emergency department. Patient is a poor historian. Discharge summary from January 15 was reviewed. Patient was admitted for pleural effusion. He was seen by pulmonology and thoracentesis was performed with removal of approximately 1 L. Patient was also found to have acute kidney injury. He was found to be significantly weak and was transferred to [facility] for continued physical therapy and occupational therapy. The ROS documented in this emergency department record has been reviewed and confirmed by me. Those systems with pertinent positive or negative responses have been documented in the HPI. All other systems are other negative and/or noncontributory. PHYSICAL EXAM: General Impression: Alert and oriented x2/4, wheezing HEENT: Normocephalic atraumatic, extra-ocular movements intact, pupils equal and reactive to light bilaterally, mucous membranes moist. Cardiovascular: Heart regular rate and rhythm Chest: Able to complete 2-3 word sentences, diffuse wheezing Abdomen: Suprapubic fullness Musculoskeletal: Pulses present and equal in all extremities, no peripheral edema Motor: Moves all extremity is grossly Neurological: CN II-XII grossly intact, confused Skin: Diffuse ecchymoses to the extremities : Hearn catheter in place. Collin blood in the reservoir. Edematous penis ED course: 85-year-old male presents via EMS. Vital signs upon arrival shows heart rate of 101, temperature 97.3, rest of vital signs within acceptable limits. It's my understanding the patient was brought here to the emergency department for hematuria. However at bedside patient is confused and having audible wheezing. Discharge summary dated from yesterday was reviewed. Chart shows that patient was evaluated by multiple specialists. He was admitted for multiple medical problems had right pleural effusion that underwent thoracentes is with removal of approximately 1.2 L. Patient was also found to have respiratory disease as being treated with Augmentin and continue breathing treatments. It is my impression from reviewing discharge summary that patient is debilitated and would likely benefit from hospice setting. According to chart from [facility] patient is still a full code. Patient's medications were reviewed. He is on antibiotics and respiratory medications.Hearn was manipulated along with nurse. There appeared to be several blood clots noted in the Hearn tubing. Point of care bedside ultrasound showed that there was debris in the bladder. Patient had his Hearn replaced with three-way irrigation. Bladder continually irrigated. Laboratory evaluation obtained. Labs appear to be stable for patient. Coag panel is unremarkable. Metabolic panel shows H of 7.29 with a bicarb 21. Patient is a mild gap no acidosis. Acute kidney injury with creatinine of 2.35. Patient's renal markers appear to be stable from when he was discharge. Prematurity peptide elevated at 44,000. Urinalysis shows greater than 182 red blood cells and white blood cells. Patient given breathing treatment. Patient does appear slightly improved after intervention. Patient be admitted for observation. Discussed patient case with Dr. Kinney was went except patient's care. At this point will continue patient's current treatment from the rehab facility. EKG interpretation: Ventricular rate 90, H fibrillation, QRS 96, QTC 477. No OK prolongation, no QTC prolongation, no ST or T-wave changes noted. EKG compared to and 06/13/2020 showing no changes. Overall, this EKG is unremarkable - Related Data Home Medications Medication Instructions Recorded Confirmed Ferrous Gluconate 324 mg PO DAILY@0800 12/08/18 01/17/20 Levothyroxine Sodium [Synthroid] 112 mcg PO DAILY@0606/15/19 01/17/20 Budesonide-Formot 160-4.5 Mcg 2 puff INHALATION RT-BID 09/26/19 01/17/20 [Symbicort 160-4.5 Mcg Inhaler] Polyethylene Glycol 3350 [Miralax] 17 gm PO DAILY PRN 09/26/19 01/17/20 Latanoprost/Pf [Latanoprost 0.005% 1 drop BOTH EYES HS 12/28/19 01/17/20 Eye Drop] Amoxic-Pot Clav 875-125Mg 1 tab PO Q12HR 01/17/20 01/17/20 [Augmentin 875-125] Folic Acid 1 mg PO DAILY 01/17/20 01/17/20 HYDROcodone/APAP 5-325MG [Apison 1 tab PO Q6HR PRN 01/17/20 01/17/20 5-325] INSULIN ASPART (NovoLOG) [NovoLOG See Protocol SQ ACHS 01/17/20 01/17/20 (formulary)] Metoprolol Succinate (ER) [Toprol 25 mg PO DAILY 01/17/20 01/17/20 XL] Midodrine HCl [ProAmatine] 10 mg PO AC-TID 01/17/20 01/17/20 Multivitamins, Thera [Multivitamin 1 tab PO DAILY 01/17/20 01/17/20 (formulary)] Thiamine [Vitamin B-1] 100 mg PO DAILY 01/17/20 01/17/20 predniSONE See Taper PO DIRECTED 01/17/20 01/17/20 risperiDONE [RisperDAL] 0.125 mg PO DIRECTED 01/17/20 01/17/20 Previous Rx's Medication Instructions Recorded ALPRAZolam [Xanax] 0.25 mg PO Q6HR PRN #4 tab 01/16/20 Acetaminophen Tab [Tylenol] 650 mg PO Q6HR PRN tab 01/16/20 Budesonide [Pulmicort] 1 mg INHALATION RT-BID ml 01/16/20 Calcium Carbonate [Tums] 1,000 mg PO Q4HR PRN chew 01/16/20 Famotidine [Pepcid] 20 mg PO DAILY tab 01/16/20 Ipratropium-Albuterol Nebulize 3 ml INHALATION RT-QID ml 01/16/20 [Duoneb 0.5 mg-3 mg/3 ml Soln] Ipratropium-Albuterol Nebulize 3 ml INHALATION RT-QID PRN ml 01/16/20 [Duoneb 0.5 mg-3 mg/3 ml Soln] Mag Hydrox/Al Hydrox/Simeth 15 ml PO Q6HR PRN ml 01/16/20 [Maalox] Magnesium Hydroxide [Milk of 2,400 mg PO DAILY PRN ml 01/16/20 Magnesia Concentrate] Melatonin 3 mg PO HS PRN tablet 01/16/20 Sodium Bicarbonate Tab 650 mg PO BID tab 01/16/20 Allergies Allergy/AdvReac Type Severity Reaction Status Date / Time aspirin Allergy Rash/Hives Verified 01/17/20 13:20 Review of Systems ROS Statement: Those systems with pertinent positive or pertinent negative responses have been documented in the HPI. ROS Other: All systems not noted in ROS Statement are negative. Past Medical History Past Medical History: Atrial Fibrillation, Cancer, COPD, Diabetes Mellitus, GERD/Reflux, Hypertension, Liver Disease, Neurologic Disorder, Osteoarthritis (OA), Pneumonia, Prostate Disorder, Thyroid Disorder Additional Past Medical History / Comment(s): latent TB, diabetic neuropathy, COPD, chronic atrial fibrillation, thyroid cancer with a previous thyroidectomy, hypothyroidism, skin cancers with removals, prostate cancer with radiation, lower GI bleed thought secondary to radiation proctitis, diverticular disease, chronic anemia, duodenal ulcer, ETOH, history of ETOH withdrawal/delirium tremors, Bilat leg weakness, history of falls, chronic lower extremity edema, arthritis thoracic spine. History of Any Multi-Drug Resistant Organisms: None Reported Past Surgical History: Bowel Resection Additional Past Surgical History / Comment(s): thyroidectomy, col onoscopy/polypectomy, skin cancer removed, bilateral cataracts, bowel resection- d/t diverticulits, sigmoidoscopy Past Anesthesia/Blood Transfusion Reactions: No Reported Reaction Additional Past Anesthesia/Blood Transfusion Reaction / Comment(s): has had blood transfusions-no reaction Past Psychological History: Anxiety, Depression Smoking Status: Current some day smoker Past Alcohol Use History: Abuse, Daily Past Drug Use History: None Reported - Past Family History Father Family Medical History: Asthma, CVA/TIA Additional Family Medical History / Comment(s): pacemaker, smoker Mother Family Medical History: Chest Pain / Angina Additional Family Medical History / Comment(s): smoker General Exam Limitations: altered mental status Course Vital Signs 01/17/20 01/17/20 01/17/20 12:24 13:06 13:18 Temperature 97.3 F L Pulse Rate 101 H 82 100 Respiratory 18 Rate Blood Pressure 115/87 O2 Sat by Pulse 100 Oximetry 01/17/20 01/17/2020 13:26 14:48 15:00 Temperature Pulse Rate 68 111 H 108 H Respiratory 20 18 Rate Blood Pressure 110/99 113/61 O2 Sat by Pulse 100 Oximetry Medical Decision Making - Lab Data Result diagrams: 01/17/20 12:50 01/17/20 12:52 Lab Results 01/17/20 01/17/20 01/17/20 Range/Units 12:41 12:50 12:52 WBC 12.0 H (3.8-10.6) k/uL RBC 2.93 L (4.30-5.90) m/uL Hgb 10.7 L (13.0-17.5) gm/dL Hct 34.1 L (39.0-53.0) % MCV 116.5 H D (80.0-100.0) fL MCH 36.4 H (25.0-35.0) pg MCHC 31.2 (31.0-37.0) g/dL RDW 16.3 H (11.5-15.5) % Plt Count 256 (150-450) k/uL Neutrophils % 91 % Lymphocytes % 3 % Monocytes % 4 % Eosinophils % 1 % Basophils % 0 % Neutrophils # 10.9 H (1.3-7.7) k/uL Lymphocytes # 0.4 L (1.0-4.8) k/uL Monocytes # 0.5 (0-1.0) k/uL Eosinophils # 0.1 (0-0.7) k/uL Basophils # 0.0 (0-0.2) k/uL Hypochromasia Marked Anisocytosis Slight Macrocytosis Marked A PT 11.7 (9.0-12.0) sec INR 1.2 H (<1.2) APTT 26.2 (22.0-30.0) sec VBG pH 7.29 L (7.31-7.41) VBG pCO2 46 (37-51) mmHg VBG HCO3 21 L (24-28) mmol/L Sodium (137-145) mmol/L Potassium (3.5-5.1) mmol/L Chloride (98-107) mmol/L Carbon Dioxide (22-30) mmol/L Anion Gap mmol/L BUN (9-20) mg/dL Creatinine (0.66-1.25) mg/dL Est GFR (CKD-EPI)AfAm (>60 ml/min/1.73 sqM) Est GFR (CKD-EPI)NonAf (>60 ml/min/1.73 sqM) Glucose (74-99) mg/dL Calcium (8.4-10.2) mg/dL NT-Pro-B Natriuret Pep pg/mL Urine Color Urine Appearance (Clear) Urine pH (5.0-8.0) Ur Specific [place] (1.001-1.035) Urine Protein (Negative) Urine Glucose (UA) (Negative) Urine Ketones (Negative) Urine Blood (Negative) Urine Nitrite (Negative) Urine Bilirubin (Negative) Urine Urobilinogen (<2.0) mg/dL Ur Leukocyte Esterase (Negative) Urine RBC (0-5) /hpf Urine WBC (0-5) /hpf Urine WBC Clumps (None) /hpf Ur Squamous Epith Cells (0-4) /hpf Urine Bacteria (None) /hpf Urine Yeast (Budding) (None) /hpf Blood Type Blood Type Recheck Bld Type Recheck Status Antibody Screen Spec Expiration Date 01/17/20 01/17/20 01/17/20 Range/Units 12:52 12:52 12:52 WBC (3.8-10.6) k/uL RBC (4.30-5.90) m/uL Hgb (13.0-17.5) gm/dL Hct (39.0-53.0) % MCV (80.0-100.0) fL MCH (25.0-35.0) pg MCHC (31.0-37.0) g/dL RDW (11.5-15.5) % Plt Count (150-450) k/uL Neutrophils % % Lymphocytes % % Monocytes % % Eosinophils % % Basophils % % Neutrophils # (1.3-7.7) k/uL Lymphocytes # (1.0-4.8) k/uL Monocytes # (0-1.0) k/uL Eosinophils # (0-0.7) k/uL Basophils # (0-0.2) k/uL Hypochromasia Anisocytosis Macrocytosis PT (9.0-12.0) sec INR (<1.2) APTT (22.0-30.0) sec VBG pH (7.31-7.41) VBG pCO2 (37-51) mmHg VBG HCO3 (24-28) mmol/L Sodium 142 (137-145) mmol/L Potassium 5.4 H (3.5-5.1) mmol/L Chloride 107 (98-107) mmol/L Carbon Dioxide 22 (22-30) mmol/L Anion Gap 13 mmol/L BUN 79 H (9-20) mg/dL Creatinine 2.35 H (0.66-1.25) mg/dL Est GFR (CKD-EPI)AfAm 29 (>60 ml/min/1.73 sqM) Est GFR (CKD-EPI)NonAf 25 (>60 ml/min/1.73 sqM) Glucose 195 H (74-99) mg/dL Calcium 9.1 (8.4-10.2) mg/dL NT-Pro-B Natriuret Pep 60101 pg/mL Urine Color Urine Appearance (Clear) Urine pH (5.0-8.0) Ur Specific [place] (1.001-1.035) Urine Protein (Negative) Urine Glucose (UA) (Negative) Urine Ketones (Negative) Urine Blood (Negative) Urine Nitrite (Negative) Urine Bilirubin (Negative) Urine Urobilinogen (<2.0) mg/dL Ur Leukocyte Esterase (Negative) Urine RBC (0-5) /hpf Urine WBC (0-5) /hpf Urine WBC Clumps (None) /hpf Ur Squamous Epith Cells (0-4) /hpf Urine Bacteria (None) /hpf Urine Yeast (Budding) (None) /hpf Blood Type A Positive Blood Type Recheck A Pos Bld Type Recheck Status No Antibody Screen NEGATIVE Spec Expiration Date 01/20/2020 - 235101/17/20 Range/Units 15:08 WBC (3.8-10.6) k/uL RBC (4.30-5.90) m/uL Hgb (13.0-17.5) gm/dL Hct (39.0-53.0) % MCV (80.0-100.0) fL MCH (25.0-35.0) pg MCHC (31.0-37.0) g/dL RDW (11.5-15.5) % Plt Count (150-450) k/uL Neutrophils % % Lymphocytes % % Monocytes % % Eosinophils % % Basophils % % Neutrophils # (1.3-7.7) k/uL Lymphocytes # (1.0-4.8) k/uL Monocytes # (0-1.0) k/uL Eosinophils # (0-0.7) k/uL Basophils # (0-0.2) k/uL Hypochromasia Anisocytosis Macrocytosis PT (9.0-12.0) sec INR (<1.2) APTT (22.0-30.0) sec VBG pH (7.31-7.41) VBG pCO2 (37-51) mmHg VBG HCO3 (24-28) mmol/L Sodium (137-145) mmol/L Potassium (3.5-5.1) mmol/L Chloride (98-107) mmol/L Carbon Dioxide (22-30) mmol/L Anion Gap mmol/L BUN (9-20) mg/dL Creatinine (0.66-1.25) mg/dL Est GFR (CKD-EPI)AfAm (>60 ml/min/1.73 sqM) Est GFR (CKD-EPI)NonAf (>60 ml/min/1.73 sqM) Glucose (74-99) mg/dL Calcium (8.4-10.2) mg/dL NT-Pro-B Natriuret Pep pg/mL Urine Color Yellow Urine Appearance Cloudy (Clear) Urine pH 5.5 (5.0-8.0) Ur Specific [place] 1.016 (1.001-1.035) Urine Protein 1+ H (Negative) Urine Glucose (UA) Negative (Negative) Urine Ketones Negative (Negative) Urine Blood Large H (Negative) Urine Nitrite Negative (Negative) Urine Bilirubin Negative (Negative) Urine Urobilinogen <2.0 (<2.0) mg/dL Ur Leukocyte Esterase Large H (Negative) Urine RBC >182 H (0-5) /hpf Urine WBC >182 H (0-5) /hpf Urine WBC Clumps Few H (None) /hpf Ur Squamous Epith Cells <1 (0-4) /hpf Urine Bacteria Rare H (None) /hpf Urine Yeast (Budding) Many H (None) /hpf Blood Type Blood Type Recheck Bld Type Recheck Status Antibody Screen Spec Expiration Date Disposition Clinical Impression: Hematuria Disposition: ADMITTED IP TO THIS [facility] Condition: Fair Referrals: Yogi Bronson MD [Primary Care Provider] - 1-2 days Decision Time: 16:21
[2020-01-17] MEDS ORDERED: ALBUTEROL NEBULIZED 2.5 MG/3 ML INHALATION STA (12:39)
[2020-01-17] MEDS ORDERED: IPRATROPIUM 0.5 MG/2.5 ML NEBU INHALATION STA (12:39)
[2020-01-17 13:03] LABS: Anisocytosis Slight; Basophils % (A) 0 %; Eosinophils # (A) 0.1 k/uL (0-0.7); Eosinophils % (A) 1 %; HCT 34.1 % (39.0-53.0); HGB 10.7 gm/dL (13.0-17.5); Hypochromasia Marked; Lymphocytes # (A) 0.4 k/uL (1.0-4.8); Lymphocytes % (A) 3 %; MCH 36.4 pg (25.0-35.0); MCHC 31.2 g/dL (31.0-37.0); Macrocytosis Marked; Mean Platelet Volume 9.8; Monocytes # (A) 0.5 k/uL (0-1.0); Monocytes % (A) 4 %; Neutrophils # (A) 10.9 k/uL (1.3-7.7); Neutrophils % (A) 91 %; Platelet Count 256 k/uL (150-450); RBC 2.93 m/uL (4.30-5.90); RDW 16.3 % (11.5-15.5)
[2020-01-17 13:12] LABS: INR 1.2 (<1.2); Partial Thromboplastin Time 26.2 sec (22.0-30.0); Prothrombin Time 11.7 sec (9.0-12.0)
[2020-01-17 13:13] LABS: MCV 116.5 fL (80.0-100.0)
[2020-01-17 13:18] LABS: Calcium 9.1 mg/dL (8.4-10.2); Potassium 5.4 mmol/L (3.5-5.1)
[2020-01-17 13:25] LABS: VBG PH 7.29 (7.31-7.41)
[2020-01-17] MEDS ORDERED: SODIUM CHLORIDE 0.9% IRRIG 1,000 ML BTL IRRIGATION ONE (14:16)
[2020-01-17] MEDS ORDERED: SODIUM CHLORIDE 0.9% IRRIGATIO 3,000 ML IRRIGATION ONE (14:17)
[2020-01-17] MEDS ORDERED: LIDOCAINE URO-JET JELLY 2% 5 ML KIT URETHRAL ONE (14:43)
--- NOTE | 2020-01-17 15:09 | CT ---
EXAMINATION TYPE: CT brain wo con DATE OF EXAM: 01/17/2020 HISTORY: Altered mental status changes CT DLP: 1150.4 mGycm. Automated Exposure Control for Dose Reduction was Utilized. TECHNIQUE: CT scan of the head is performed without contrast. COMPARISON: CT brain 4 days ago. FINDINGS: There is no acute intracranial hemorrhage or midline shift identified. There is diffuse v entricular and sulcal prominence consistent with diffuse age-related cerebral atrophy. There is low- attenuation in the periventricular white matter consistent with chronic small vessel ischemic change. Some patchy opacification favoring mucosal thickening posterior right ethmoid and posterior aspect l eft sphenoid sinus are redemonstrated without change. Vascular calcification in the distal internal c arotid arteries bilaterally is again seen. IMPRESSION: No acute intracranial hemorrhage or midline shift. There is persistent mild to moderate diffuse cerebral atrophy and moderate to severe chronic small vessel ischemic change redemonstrated. No significant change from prior.
[2020-01-17] MEDS: SODIUM CHLORIDE 0.9% IRRIGATIO 3,000 ML IRRIGATION SCH (15:15)
[2020-01-17 15:27] LABS: Appearance,Urine Cloudy (Clear); Bacteria,Urine Rare /hpf; Bilirubin,Urine Negative (Negative); Blood,Urine Large (Negative); Budding Yeast,Urine Many /hpf; Color,Urine Yellow; Glucose,Urine (UA) Negative (Negative); Ketones,Urine Negative (Negative); Leukocyte Esterase,Urine Large (Negative); Nitrite,Urine Negative (Negative); PH, Urine 5.5 (5.0-8.0); Protein,Urine 1+ (Negative); RBC,Urine >182 /hpf (0-5); Specific Gravity,Urine 1.016 (1.001-1.035); Squamous Epithelial Cell,Urine <1 /hpf (0-4); Urobilinogen,Urine <2.0 mg/dL (<2.0); WBC,Urine >182 /hpf (0-5)
--- NOTE | 2020-01-17 16:17 | XR ---
EXAMINATION TYPE: XR chest 1V DATE OF EXAM: 01/17/2020 COMPARISON: Chest x-ray 2 days ago. HISTORY: Wheeze. TECHNIQUE: Single AP portable frontal upright view of the chest is obtained. FINDINGS: The osseous structures remain demineralized. There is persistent cardiomegaly and atherosc lerotic thoracic aorta. Background chronic parenchymal change with small to moderate size right pleur al effusion and associated right mid to basilar acute atelectasis and/or infiltrate remains present. Left lung remain clear. Right paratracheal focal calcified structure corresponding to subclavian hima ry is redemonstrated. IMPRESSION: Overall stable findings, mild underlying emphysematous change and cardiomegaly with sma ll to moderate-sized right pleural effusion and associated right mid to basilar acute atelectasis and /or infiltrate are all redemonstrated.
[2020-01-17] MEDS ORDERED: ACETAMINOPHEN TAB 325 MG TAB PO PRN ×2 (16:21→16:22)
[2020-01-17] MEDS ORDERED: NALOXONE 0.4 MG/ML 1 ML VIAL IV PRN (16:21)
[2020-01-17] MEDS ORDERED: IPRATROPIUM-ALBUTEROL 3 ML NEB INHALATION PRN (16:22)
[2020-01-17] MEDS ORDERED: MAG HYDROX/AL HYDROX/SIMETH 30 ML CUP PO PRN (16:22)
[2020-01-17] MEDS ORDERED: MAGNESIUM HYDROXIDE 2,400 MG/10 ML CUP PO PRN (16:22)
[2020-01-17] MEDS ORDERED: CALCIUM CARBONATE 500 MG CHEWABLE PO PRN (16:22)
[2020-01-17] MEDS ORDERED: POLYETHYLENE GLYCOL 3350 17 GM POWD.PACK PO PRN (16:22)
[2020-01-17] MEDS ORDERED: HEPARIN SODIUM,PORCINE 5,000 UNIT/ML 1 ML VIAL SQ SCH (21:00)
[2020-01-17] MEDS: PANTOPRAZOLE 40 MG/10 ML VIAL IVP SCH (22:02)
[2020-01-17] MEDS: ALPRAZolam 0.25 MG TAB PO PRN (22:02)
[2020-01-17] MEDS: AMOXIC-POT CLAV 875-125MG 1 EACH TAB PO SCH (22:02)
[2020-01-17] MEDS: SODIUM CHLORIDE 0.9% 1,000 ML IV SCH (22:02)
[2020-01-17] MEDS: IPRATROPIUM-ALBUTEROL 3 ML NEB INHALATION SCH (22:31)
[2020-01-17] MEDS: BUDESONIDE 1 MG/2 ML NEBU INHALATION SCH (22:31)
[2020-01-17] MEDS: SYMBICORT 160-4.5 MCG INHALER INHALATION SCH (22:33)
--- NOTE | 2020-01-17 23:10 | HP ---
HISTORY AND PHYSICAL DATE OF SERVICE: 01/17/2020 CHIEF COMPLAINTS: Change in mental status as well as hematuria and shortness of breath. HISTORY OF PRESENT ILLNESS: This 85-year-old gentleman with a past medical history of multiple medical problems was recently admitted to [facility] with complaints of features of right knee hematoma. The patient had multiple medical issues, including COPD and pleural effusion, which was tapped. The patient also had a change in mental status. The patient improved significantly. Patient went home. Patient apparently had [facility] Hearn [facility] but subsequently, upon, the patient had a large amount of hematuria, approximately 300 to 400 mL, and the balloon was reinflated. The patient was brought to the emergency room and admitted for further evaluation and treatment. The patient continues to be confused. He has shortness of breath, also. The patient was admitted for further evaluation and treatment. A CT brain was repeated which showed no acute intracranial findings, but persistent atrophy was noted. Chest x- ray was personally reviewed by me and it showed overall stable findings and cardiomegaly. The patient is confused, unable to give a coherent history. Most of the history is taken from my discussion with staff, review of the chart as well as discussion with the ER physician. PAST MEDICAL HISTORY: History of recent pleural effusion, history atrial fibrillation, COPD, diabetes mellitus, history of GERD, hypertension, liver disease, history of DJD, history of pneumonia, history of latent TB, diabetic neuropathy. MEDICATIONS: 1. Risperdal. 2. Xanax. 3. Polyethylene glycol. 4. Hydrocodone. 5. Tums. 6. Tylenol. 7. Melatonin. 8. Magnesium. 9. Hydroxide. 10.DuoNeb q.i.d. and p.r.n. 11.Midodrine. 12.Symbicort 160/4.5 b.i.d. 13.Sodium bicarb. 14.Pulmicort. 15.Augmentin b.i.d. 16.Vitamin B1 (thiamine). 17.Prednisone. 18.Toprol. 19.Levothyroxine. 20.Latanoprost. 21.Folic acid. 22.Iron sulfate. 23.Pepcid. ALLERGIES: ASPIRIN. FAMILY HISTORY: History of asthma, CVA, TIA, pacemaker in the family. SOCIAL HISTORY: Per chart, history of smoking, history of alcohol intake. REVIEW OF SYSTEMS: Review of systems could not be taken because of the patient's change in mental status. PHYSICAL EXAMINATION: Patient is conscious, confused. Pulse is 111, blood pressure 110/99, respiration 20, temperature 97.3, pulse ox 100% on 4 L. HEENT: Conjunctivae normal. NECK: No jugular venous distention. CARDIOVASCULAR SYSTEM: S1, S2 muffled. RESPIRATORY SYSTEM: Breath sounds diminished at the bases. A few scattered rhonchi and crackles. Expiratory wheezing also present. ABDOMEN: Soft, non-tender. No mass palpable. LEGS: No edema. No swelling. NERVOUS SYSTEM: Higher functions as mentioned earlier. Moves all 4 limbs. No focal motor or sensory deficit. LYMPHATICS: No lymph node palpable in neck, axillae or groin. SKIN: No ulcer, rash, bleeding. JOINTS: No active deforming arthropathy. LABS: WBC 12, hemoglobin 10.7, MCV 116.5. INR is 1.2. Sodium 142, potassium 5.4. Creatinine is 2.35. UA noted. ASSESSMENT: 1. Hematuria for evaluation. 2. Status post removal of the Hearn catheter, the re-insertion. 3. History of recent right pleural effusion and thoracocentesis. 4. Chronic obstructive pulmonary disease, acute exacerbation. 5. Change in mental status, metabolic encephalopathy, acute on chronic. 6. History of recent right pleural effusion and tapping. 7. 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. 8. CT scan of the chest showed masslike atelectasis. 9. Kidney failure, chronic kidney disease, stage 3, with history of recent acute tubular necrosis and acute renal failure. 10.History of right knee hemarthrosis recently. 11.History of falls and gait dysfunction. 12.Metabolic encephalopathy secondary to above. 13.Generalized weakness. 14.Chronic right-sided pleural effusion. 15.History of nicotine dependence. 16.Hypertension. 17.Diabetes mellitus, type 2. 18.History of gait dysfunction. 19.Persistent atrial fibrillation. 20.Chronic degenerative joint disease. 21.Hypothyroidism. 22.Gastroesophageal reflux disease. 23.History of mitral regurgitation. 24.Severe tricuspid regurgitation. 25.History of pulmonary hypertension secondary to chronic obstructive pulmonary disease. 26.NO CODE, NO CPR, NO VENT. RECOMMENDATIONS AND DISCUSSION: I recommend to continue current medications, continue with the monitoring, symptomatic treatment. Otherwise at this time I recommend resuming the home medications, bronchodilators. Urology consultation for hematuria. I will recommend IV steroids. Guarded prognosis. Further recommendations to follow. MMODL / IJN: [id number] / [id number]
[2020-01-17] MEDS ORDERED: SODIUM CHLORIDE 0.9% IRRIGATION PRN (23:50)
[2020-01-18] MEDS ORDERED: SODIUM CHLORIDE 0.9% IRRIGATIO 3,000 ML IRRIGATION PRN (00:32)
[2020-01-18] MEDS: risperiDONE 0.25 MG TAB PO SCH ×2 (00:46→20:12)
[2020-01-18] MEDS: SODIUM BICARBONATE TAB 650 MG TAB PO SCH ×3 (00:47→20:13)
[2020-01-18] MEDS: LATANOPROST 0.005% OPHTH DROPS 2.5 ML BTL BOTH EYES SCH ×2 (00:48→20:14)
[2020-01-18] MEDS: SODIUM CHLORIDE 0.9% IRRIGATIO 3,000 ML IRRIGATION SCH (00:52)
[2020-01-18] MEDS: SODIUM CHLORIDE 0.9% 1,000 ML IV SCH (01:47)
[2020-01-18] MEDS: ALPRAZolam 0.25 MG TAB PO PRN ×3 (04:07→20:24)
[2020-01-18] MEDS: LEVOTHYROXINE 112 MCG TAB PO SCH (04:07)
[2020-01-18] MEDS: SYMBICORT 160-4.5 MCG INHALER INHALATION SCH ×2 (08:11→20:33)
[2020-01-18] MEDS: BUDESONIDE 1 MG/2 ML NEBU INHALATION SCH ×2 (08:11→20:32)
[2020-01-18] MEDS: IPRATROPIUM-ALBUTEROL 3 ML NEB INHALATION SCH ×4 (08:11→20:32)
[2020-01-18] MEDS: MIDODRINE 5 MG TAB PO SCH ×3 (08:50→16:37)
[2020-01-18] MEDS: AMOXIC-POT CLAV 875-125MG 1 EACH TAB PO SCH ×2 (08:50→20:14)
[2020-01-18] MEDS: FERROUS SULFATE 325 MG TAB PO SCH (08:50)
[2020-01-18] MEDS: FOLIC ACID 1 MG TAB PO SCH (08:52)
[2020-01-18] MEDS: THIAMINE 100 MG TAB PO SCH (08:52)
[2020-01-18] MEDS: METOPROLOL SUCCINATE (ER) 25 MG TAB.ER.24H PO SCH (08:52)
[2020-01-18] MEDS: PANTOPRAZOLE 40 MG/10 ML VIAL IVP SCH (08:52)
[2020-01-18] MEDS: FAMOTIDINE 20 MG TAB PO SCH (08:52)
[2020-01-18] MEDS: MULTIVITAMINS, THERA 1 EACH TAB PO SCH (08:52)
[2020-01-18 11:51] LABS: Anisocytosis Slight; Basophils % (A) 0 %; Eosinophils % (A) 0 %; HCT 31.4 % (39.0-53.0); Hypochromasia Moderate; Lymphocytes # (A) 0.4 k/uL (1.0-4.8); Lymphocytes % (A) 4 %; MCH 37.5 pg (25.0-35.0); Macrocytosis Marked; Mean Platelet Volume 10.2; Monocytes # (A) 0.6 k/uL (0-1.0); Monocytes % (A) 5 %; Neutrophils # (A) 9.8 k/uL (1.3-7.7); Neutrophils % (A) 90 %; Platelet Count 201 k/uL (150-450); RBC 2.68 m/uL (4.30-5.90); RDW 16.5 % (11.5-15.5)
[2020-01-18 12:27] LABS: Polychromasia Present
[2020-01-18 12:45] LABS: Calcium 8.7 mg/dL (8.4-10.2)
[2020-01-18 12:49] LABS: Potassium 5.5 mmol/L (3.5-5.1)
--- NOTE | 2020-01-18 15:39 | P.GSCN ---
History of Present Illness Consult date: 01/18/20 Reason for Consult: Gross hematuria History of present illness: The patient is an 85-year-old male admitted through the emergency room last nig for evaluation of gross hematuria and impaired consciousness. He had been treated at this hospital earlier in the week and was discharged to the [facility] for rehab. A Hearn catheter was inserted on 01/13 prior to his discharge and at that time he apparently had a postvoid residual of 300 mL. Urine draining from the catheter was clear up until sometime yesterday when the catheter was removed for a voiding trial at the snf. The patient reportedly drained a large amount of blood through the urethra after the balloon was deflated and the catheter was removed. The patient was taken to the emergency room where an 18-[place] three-way catheter was inserted. A small amount of blood clots was irrigated from the catheter but since that time the urine has remained much clearer. At the present time the urine is free of any gross hematuria and continuous bladder irrigation is no longer necessary. The patient has a history of [place] 4+5 = 9 prostate cancer which was present in 12 of 12 biopsies in 2014. At that time his PSA was only 10.9. He was treated with a combination of androgen deprivation therapy and external beam radiation therapy and his PSA has remained undetectable since then. Unfortunately he has problems with radiation proctitis and cystitis and has had intermittent rectal bleeding and gross hematuria. He also has had episodes of urgency and urge incontinence. He was treated due to acute epididymitis and a scrotal abscess by Dr. Prado in late 2017. unfortunately the patient is obtunded and confused at the present time. He is unable to give any meaningful history. His history is from a review of our office records, review of the hospital records and a conversation with the patient's daughter. Review of Systems ROS unobtainable: due to mental status - Constitutional Reports chills, Denies fever Past Medical History Past Medical History: Atrial Fibrillation, Cancer, COPD, Diabetes Mellitus, GERD/Reflux, Hypertension, Liver Disease, Neurologic Disorder, Osteoarthritis (OA), Pneumonia, Prostate Disorder, Thyroid Disorder Additional Past Medical History / Comment(s): latent TB, diabetic neuropathy, COPD, chronic atrial fibrillation, thyroid cancer with a previous thyroidectomy, hypothyroidism, skin cancers with removals, prostate cancer with radiation, lower GI bleed thought secondary to radiation proctitis, diverticular disease, chronic anemia, duodenal ulcer, ETOH, history of ETOH withdrawal/delirium tremors, Bilat leg weakness, history of falls, chronic lower extremity edema, arthritis thoracic spine. History of Any Multi-Drug Resistant Organisms: None Reported Past Surgical History: Bowel Resection Additional Past Surgical History / Comment(s): thyroidectomy, colonoscopy/polypectomy, skin cancer removed, bilateral cataracts, bowel resection-d/t diverticulits, sigmoidoscopy Past Anesthesia/Blood Transfusion Reactions: No Reported Reaction Additional Past Anesthesia/Blood Transfusion Reaction / Comm: has had blood transfusions-no reaction Past Psychological History: Anxiety, Depression Additional Psychological History / Comment(s): pt stated he lives at [facility],has motorized w/c and 2 -4 wheeled walkers. has home care but can't remember name of company.. 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 Smoking Status: Current some day smoker Past Alcohol Use History: Abuse, Daily Additional Past Alcohol Use History / Comment(s): started smoking in his mid 40's, 1ppd, pt stated he drinks 3 drinks per day, last drink was 2 days ago Past Drug Use History: None Reported - Past Family History Father Family Medical History: Asthma, CVA/TIA Additional Family Medical History / Comment(s): pacemaker, smoker Mother Family Medical History: Chest Pain / Angina Additional Family Medical History / Comment(s): smoker Medications and Allergies Home Medications Medication Instructions Recorded Confirmed Type Ferrous Gluconate 324 mg PO DAILY@0800 12/08/18 01/17/20 History Levothyroxine Sodium [Synthroid] 112 mcg PO DAILY@0600 06/15/19 01/17/20 History Budesonide-Formot 160-4.5 Mcg 2 puff INHALATION RT-BID 09/26/19 01/17/20 History [Symbicort 160-4.5 Mcg Inhaler] Polyethylene Glycol 3350 [Miralax] 17 gm PO DAILY PRN 09/26/19 01/17/20 History Latanoprost/Pf [Latanoprost 0.005% 1 drop BOTH EYES HS 12/28/19 01/17/20 History Eye Drop] ALPRAZolam [Xanax] 0.25 mg PO Q6HR PRN #4 tab 01/16/20 01/17/20 Rx Acetaminophen Tab [Tylenol] 650 mg PO Q6HR PRN tab 01/16/20 01/17/20 Rx Budesonide [Pulmicort] 1 mg INHALATION RT-BID ml 01/16/20 01/17/20 Rx Calcium Carbonate [Tums] 1,000 mg PO Q4HR PRN chew 01/16/20 01/17/20 Rx Famotidine [Pepcid] 20 mg PO DAILY tab 01/16/20 01/17/20 Rx Ipratropium-Albuterol Nebulize 3 ml INHALATION RT-QID ml 01/16/20 01/17/20 Rx [Duoneb 0.5 mg-3 mg/3 ml Soln] Ipratropium-Albuterol Nebulize 3 ml INHALATION RT-QID PRN ml 01/16/20 01/17/20 Rx [Duoneb 0.5 mg-3 mg/3 ml Soln] Mag Hydrox/Al Hydrox/Simeth 15 ml PO Q6HR PRN ml 01/16/20 01/17/20 Rx [Maalox] Magnesium Hydroxide [Milk of 2,400 mg PO DAILY PRN ml 01/16/20 01/17/20 Rx Magnesia Concentrate] Melatonin 3 mg PO HS PRN tablet 01/16/20 01/17/20 Rx Sodium Bicarbonate Tab 650 mg PO BID tab 01/16/20 01/17/20 Rx Amoxic-Pot Clav 875-125Mg 1 tab PO Q12HR 01/17/20 01/17/20 History [Augmentin 875-125] Folic Acid 1 mg PO DAILY 01/17/20 01/17/20 History HYDROcodone/APAP 5-325MG [[place] 1 tab PO Q6HR PRN 01/17/20 01/17/20 History 5-325] INSULIN ASPART (NovoLOG) [NovoLOG See Protocol SQ ACHS 01/17/20 01/17/20 History (formulary)] Metoprolol Succinate (ER) [Toprol 25 mg PO DAILY 01/17/20 01/17/20 History XL] Midodrine HCl [ProAmatine] 10 mg PO AC-TID 01/17/20 01/17/20 History Multivitamins, Thera [Multivitamin 1 tab PO DAILY 01/17/20 01/17/20 History (formulary)] Thiamine [Vitamin B-1] 100 mg PO DAILY 01/17/20 01/17/20 History predniSONE See Taper PO DIRECTED 01/17/20 01/17/20 History risperiDONE [RisperDAL] 0.125 mg PO DIRECTED 01/17/20 01/17/20 History Allergies Allergy/AdvReac Type Severity Reaction Status Date / Time aspirin Allergy Rash/Hives Verified 01/17/20 13:20 Surgical - Exam Vital Signs Temp Pulse Resp BP Pulse Ox 97.3 F L 101 H 18 115/87 100 01/17/20 12:24 01/17/20 12:24 01/17/20 12:24 01/17/20 12:24 01/17/20 12:24 - General well developed, well nourished, obese - Respiratory normal respiratory effort - Abdomen Abdomen: soft, no masses, distended Hernia: none - Genitourinary normal penis with no external lesions, testicles non-tender Results - Labs 01/18/20 11:10 01/18/20 11:10 Abnormal Lab Results - Last 24 Hours (Table) 01/18/20 01/18/20 Range/Units 11:10 11:10 WBC 11.0 H (3.8-10.6) k/uL RBC 2.68 L (4.30-5.90) m/uL Hgb 10.0 L (13.0-17.5) gm/dL Hct 31.4 L (39.0-53.0) % MCV 117.0 H (80.0-100.0) fL MCH 37.5 H (25.0-35.0) pg RDW 16.5 H (11.5-15.5) % Neutrophils # 9.8 H (1.3-7.7) k/uL Lymphocytes # 0.4 L (1.0-4.8) k/uL Macrocytosis Marked A Potassium 5.5 H (3.5-5.1) mmol/L Chloride 110 H (98-107) mmol/L Carbon Dioxide 20 L (22-30) mmol/L BUN 83 H (9-20) mg/dL Creatinine 2.28 H (0.66-1.25) mg/dL Glucose 254 H (74-99) mg/dL Diabetes panel 01/18/20 Range/Units 11:10 Sodium 141 (137-145) mmol/L Potassium 5.5 H (3.5-5.1) mmol/L Chloride 110 H (98-107) mmol/L Carbon Dioxide 20 L (22-30) mmol/L BUN 83 H (9-20) mg/dL Creatinine 2.28 H (0.66-1.25) mg/dL Glucose 254 H (74-99) mg/dL Calcium 8.7 (8.4-10.2) mg/dL Calcium panel 01/18/20 Range/Units 11:10 Calcium 8.7 (8.4-10.2) mg/dL Pituitary panel 01/18/20 Range/Units 11:10 Sodium 141 (137-145) mmol/L Potassium 5.5 H (3.5-5.1) mmol/L Chloride 110 H (98-107) mmol/L Carbon Dioxide 20 L (22-30) mmol/L BUN 83 H (9-20) mg/dL Creatinine 2.28 H (0.66-1.25) mg/dL Glucose 254 H (74-99) mg/dL Calcium 8.7 (8.4-10.2) mg/dL Adrenal panel 01/18/20 Range/Units 11:10 Sodium 141 (137-145) mmol/L Potassium 5.5 H (3.5-5.1) mmol/L Chloride 110 H (98-107) mmol/L Carbon Dioxide 20 L (22-30) mmol/L BUN 83 H (9-20) mg/dL Creatinine 2.28 H (0.66-1.25) mg/dL Glucose 254 H (74-99) mg/dL Calcium 8.7 (8.4-10.2) mg/dL Assessment and Plan (1) Hematuria Narrative/Plan: The source of the patient's gross hematuria is not clear. The hematuria occurred immediately after deflation of the catheter balloon and it is possible this was related to direct trauma to the prostate if the balloon was not com pletely deflated. Although the patient has a history of irradiation cystitis his gross hematuria cleared within a short period of time and so irradiation cystitis with hematuria is much less likely the cause. The patient's catheter will be left in place for 24-48 hours. He will be given a voiding trial prior to being transferred back to the snf. At least at this time I do not feel that cystoscopy is necessary for further evaluation, especially in view of the patient's impaired mentation. Dr. Prado may elect to do this sometime later this summer however. Current Visit: Yes Status: Acute Code(s): R31.9 - HEMATURIA, UNSPECIFIED SNOMED Code(s): 42420965
[2020-01-18] MEDS: MELATONIN 3 MG TABLET PO PRN (20:24)
[2020-01-18] MEDS ORDERED: SODIUM POLYSTYRENE SULFONATE 15 GM/60 ML BOTTLE PO STA (20:29)
--- NOTE | 2020-01-18 22:34 | PN ---
PROGRESS NOTE DATE OF SERVICE: 01/18/2020 This 85-year-old gentleman who was admitted with multiple complex medical issues recently was sent to [facility]. The patient apparently had a Hearn catheter which was removed, resulting in significant hematuria. The patient was admitted for further evaluation. The patient is short of breath. The patient is confused. Urology has evaluated the patient and recommended a catheter to be placed at least for 24-48 hours and a voiding trial prior to transfer back to the longterm. Cystoscopy is not necessary at this time. Past medical history reviewed. Review of systems could not be taken; the patient is confused. CURRENT MEDICATIONS: Reviewed. They include Tylenol, [place] 5 mg, Maalox, DuoNeb, Xanax, Augmentin, Pulmicort, Symbicort, Tums, Pepcid, iron sulfate, folic acid, Xalatan, Synthroid, milk of magnesia, melatonin, Toprol, ProAmatine, multivitamins, MiraLAX, Risperdal, vitamin B1. Doses are reviewed. PHYSICAL EXAMINATION: Patient is conscious but confused. Pulse 100, blood pressure 108/77, respiration 17, temperature 97.6, pulse ox 100% on 4 L. HEENT: Conjunctivae normal. NECK: No jugular venous distention. CARDIOVASCULAR SYSTEM: S1, S2 muffled. RESPIRATORY SYSTEM: Breath sounds diminished at the bases. A few scattered rhonchi. ABDOMEN: Soft, non-tender. LEGS: No edema. No swelling. NERVOUS SYSTEM: Diffusely weak. LABS: WBC 11, hemoglobin 10, MCV 117. Sodium 141, potassium 5.5. UA noted. ASSESSMENT: 1. Hematuria, possibly secondary to trauma, for evaluation. 2. Status post removal of Hearn catheter and reinsertion. 3. History of recent right pleural effusion and thoracocentesis. 4. Chronic obstructive pulmonary disease, acute exacerbation. 5. Change in mental status, metabolic encephalopathy, acute on chronic. 6. History of recent right pleural effusion tapping. 7. Possible underlying dementia and cerebral atrophy. 8. CT scan of the chest showing masslike atelectasis. 9. Kidney failure, chronic kidney disease, stage 3, with history of recent acute tubular necrosis and acute renal failure. 10.History of right knee hemarthrosis recently. 11.History of falls and gait dysfunction. 12.Metabolic encephalopathy secondary to above. 13.Generalized weakness. 14.Chronic right-sided pleural effusion. 15.History of nicotine dependence. 16.Hypertension. 17.Diabetes mellitus, type 2. 18.History of gait dysfunction. 19.Persistent atrial fibrillation. 20.Chronic degenerative joint disease. 21.Hypothyroid. 22.Gastroesophageal reflux disease. 23.History of mitral regurgitation. 24.History of severe tricuspid regurgitation. 25.History of pulmonary hypertension secondary to chronic obstructive pulmonary disease. 26.NO CODE, NO CPR, NO VENT. RECOMMENDATIONS AND DISCUSSION: I recommend to continue current medications, continue with the monitoring, symptomatic treatment. Urology input appreciated. We will continue to monitor. Voiding trial prior to discharge. Monitor creatinine closely. Creatinine is stable at 2.8. The patient also has some mild hyperkalemia. I would recommend a course of Kayexalate and continue to monitor. Prognosis guarded. Discussed with the daughter at the bedside. Further recommendations to follow. MMSILVERL / SKYEN: [id number] /
[2020-01-19] MEDS: HYDROcodone/APAP 5-325MG 1 EACH TAB PO PRN ×2 (00:01→20:01)
[2020-01-19] MEDS: SODIUM CHLORIDE 0.9% IRRIGATIO 3,000 ML IRRIGATION SCH ×3 (01:33→12:34)
[2020-01-19] MEDS: LEVOTHYROXINE 112 MCG TAB PO SCH (05:11)
[2020-01-19] MEDS: ALPRAZolam 0.25 MG TAB PO PRN ×3 (06:19→20:00)
[2020-01-19] MEDS: FOLIC ACID 1 MG TAB PO SCH (07:04)
[2020-01-19] MEDS: MIDODRINE 5 MG TAB PO SCH ×3 (07:04→17:01)
[2020-01-19] MEDS: FERROUS SULFATE 325 MG TAB PO SCH (07:04)
[2020-01-19] MEDS: PANTOPRAZOLE 40 MG/10 ML VIAL IVP SCH (07:04)
[2020-01-19] MEDS: MULTIVITAMINS, THERA 1 EACH TAB PO SCH (07:04)
[2020-01-19] MEDS: SODIUM BICARBONATE TAB 650 MG TAB PO SCH ×2 (07:05→20:00)
[2020-01-19] MEDS: METOPROLOL SUCCINATE (ER) 25 MG TAB.ER.24H PO SCH (07:05)
[2020-01-19] MEDS: FAMOTIDINE 20 MG TAB PO SCH (07:05)
[2020-01-19] MEDS: AMOXIC-POT CLAV 875-125MG 1 EACH TAB PO SCH ×2 (07:07→20:00)
[2020-01-19] MEDS: THIAMINE 100 MG TAB PO SCH (07:11)
[2020-01-19] MEDS: IPRATROPIUM-ALBUTEROL 3 ML NEB INHALATION SCH ×4 (09:00→20:12)
[2020-01-19] MEDS: BUDESONIDE 1 MG/2 ML NEBU INHALATION SCH ×2 (09:00→20:12)
[2020-01-19] MEDS: SYMBICORT 160-4.5 MCG INHALER INHALATION SCH ×2 (09:06→20:12)
[2020-01-19 09:42] LABS: Anisocytosis Slight; Basophils % (A) 0 %; Eosinophils # (A) 0.1 k/uL (0-0.7); Eosinophils % (A) 1 %; HGB 9.7 gm/dL (13.0-17.5); Hypochromasia Marked; Lymphocytes # (A) 0.4 k/uL (1.0-4.8); Lymphocytes % (A) 4 %; MCH 37.4 pg (25.0-35.0); MCHC 31.2 g/dL (31.0-37.0); MCV 119.9 fL (80.0-100.0); Macrocytosis Marked; Mean Platelet Volume 9.8; Monocytes # (A) 0.6 k/uL (0-1.0); Monocytes % (A) 6 %; Neutrophils # (A) 9.5 k/uL (1.3-7.7); Neutrophils % (A) 89 %; Platelet Count 176 k/uL (150-450); RBC 2.59 m/uL (4.30-5.90); RDW 16.4 % (11.5-15.5); WBC 10.7 k/uL (3.8-10.6)
[2020-01-19 09:58] LABS: Calcium 8.5 mg/dL (8.4-10.2); Potassium 4.6 mmol/L (3.5-5.1)
--- NOTE | 2020-01-19 09:58 | P.PN ---
Progress Note - Text Progress Note Date: 01/19/20 The patient is afebrile and normotensive. Unfortunately he remains obtunded and is unable to answer any questions this morning. Urine draining from his catheter is clear. Hemoglobin is stable at 9.7. It would be reasonable to give the patient a voiding trial prior to being transferred back to a rehab facility. Unfortunately in view of the patient's current state of awareness this cannot be done. If the patient is improved then a voiding trial may be possible tomorrow.
[2020-01-19] MEDS: SODIUM CHLORIDE 0.9% 1,000 ML IV SCH (15:58)
[2020-01-19] MEDS: risperiDONE 0.25 MG TAB PO SCH (20:00)
--- NOTE | 2020-01-19 20:56 | PN ---
PROGRESS NOTE DATE OF SERVICE: 01/19/2020 This 85-year-old gentleman admitted with multiple medical problems including hematuria also confused at this time. The patient also had some shortness of breath. The patient had recent Hearn catheter withdrawn with some hematuria. Urology following the patient closely. Medication has been stopped. Voiding trial is being suggested. The patient closely monitored. PAST MEDICAL HISTORY: Reviewed. Review of systems could not be taken because the patient is conscious but confused. CURRENT MEDICATIONS: Tylenol p.r.n., [place] 5 mg, Maalox, DuoNeb, Xanax, Augmentin, Pulmicort, Pepcid, iron sulfate, folic acid, Xalatan, Synthroid, milk of magnesia, melatonin, Toprol XL, multivitamins Narcan and thiamine. PHYSICAL EXAM: Patient is conscious but confused. Pulse 98. Blood pressure 107/73, respiration 16, temperature 96.5, pulse ox 94% on 2 L. HEENT: Conjunctivae normal. NECK: No JVD. CARDIOVASCULAR: S1, S2 muffled. RESPIRATORY: Breath sounds diminished in the bases. Bilateral scattered rhonchi and crackles. ABDOMEN: Soft, nontender. LEGS no edema. No swelling. NERVOUS SYSTEM: Higher functions as mentioned earlier. Moves all 4 limbs. No focal motor or sensory deficits. LYMPHATICS: No lymph nodes palpable in the neck, axillae or groin. LABS: WBC 10.2, hemoglobin 10.6, sodium 142, potassium 4.6, creatinine is 2.43. UA noted. The cultures are negative. ASSESSMENT: 1. Hematuria, possibly secondary to trauma for evaluation. 2. Status post Hearn catheter reinsertion. 3. History of recent right pleural effusion, thoracocentesis. 4. Chronic obstructive pulmonary disease acute exacerbation. 5. Change in mental status, metabolic encephalopathy, acute on chronic. 6. History of recent right pleural effusion tapping. 7. Possible underlying dementia. 8. Cerebral atrophy. 9. CT scan of the chest showing masslike atelectasis. 10.Chronic kidney stage 3 with history of recent acute tubular necrosis, acute renal failure. 11.History of right knee hemarthrosis recently. 12.History of falls and gait dysfunction. 13.Metabolic encephalopathy secondary to above. 14.Generalized weakness. 15.Chronic right -sided pleural effusion. 16.History of nicotine dependence. 17.Hypertension. 18.Diabetes mellitus type 2. 19.History of gait dysfunction. 20.Persistent atrial fibrillation. 21.Chronic degenerative joint disease. 22.Hypothyroidism. 23.Gastroesophageal reflux disease. 24.History of mitral regurgitation. 26.Patient has history of pulmonary hypertension secondary to chronic obstructive pulmonary disease. 27.NO CODE, NO CPR, NO VENT. RECOMMENDATIONS AND DISCUSSION: In this 85-year-old gentleman who presented with multiple complex medical issues, we will monitor the patient closely, continue the current medications, management and the symptomatic treatment. Continue bronchodilators. Continue the rest of medication. Continue with antibiotics. Prognosis guarded because of multiple complex medical issues. Discussed with daughter at the bedside. Urology recommendations. Further recommendations to follow. MMSILVERL / IJN: [id number] / MTDD
[2020-01-19] MEDS: LATANOPROST 0.005% OPHTH DROPS 2.5 ML BTL BOTH EYES SCH (22:03)
[2020-01-20] MEDS: SODIUM CHLORIDE 0.9% IRRIGATIO 3,000 ML IRRIGATION SCH (02:02)
[2020-01-20] MEDS: ALPRAZolam 0.25 MG TAB PO PRN ×3 (05:23→22:14)
[2020-01-20] MEDS: LEVOTHYROXINE 112 MCG TAB PO SCH (05:23)
[2020-01-20] MEDS: PANTOPRAZOLE 40 MG/10 ML VIAL IVP SCH (07:28)
[2020-01-20] MEDS: FERROUS SULFATE 325 MG TAB PO SCH (07:29)
[2020-01-20] MEDS: FOLIC ACID 1 MG TAB PO SCH (07:29)
[2020-01-20] MEDS: METOPROLOL SUCCINATE (ER) 25 MG TAB.ER.24H PO SCH (07:29)
[2020-01-20] MEDS: FAMOTIDINE 20 MG TAB PO SCH (07:29)
[2020-01-20] MEDS: MIDODRINE 5 MG TAB PO SCH ×3 (07:29→16:44)
[2020-01-20] MEDS: MULTIVITAMINS, THERA 1 EACH TAB PO SCH (07:29)
[2020-01-20] MEDS: THIAMINE 100 MG TAB PO SCH (07:29)
[2020-01-20] MEDS: SODIUM BICARBONATE TAB 650 MG TAB PO SCH ×2 (07:29→22:14)
[2020-01-20] MEDS: AMOXIC-POT CLAV 875-125MG 1 EACH TAB PO SCH ×2 (07:30→22:15)
[2020-01-20] MEDS: BUDESONIDE 1 MG/2 ML NEBU INHALATION SCH ×2 (07:59→20:56)
[2020-01-20] MEDS: IPRATROPIUM-ALBUTEROL 3 ML NEB INHALATION SCH ×4 (07:59→20:56)
[2020-01-20] MEDS: SYMBICORT 160-4.5 MCG INHALER INHALATION SCH ×2 (07:59→20:56)
[2020-01-20 09:02] LABS: Calcium 8.5 mg/dL (8.4-10.2); Potassium 4.5 mmol/L (3.5-5.1)
[2020-01-20 09:22] LABS: Anisocytosis Slight; HCT 33.7 % (39.0-53.0); HGB 10.3 gm/dL (13.0-17.5); Hypochromasia Marked; MCH 36.7 pg (25.0-35.0); MCHC 30.7 g/dL (31.0-37.0); MCV 119.5 fL (80.0-100.0); Macrocytosis Marked; Mean Platelet Volume 10.4; Platelet Count 168 k/uL (150-450); RBC 2.82 m/uL (4.30-5.90); RDW 16.5 % (11.5-15.5); WBC 9.6 k/uL (3.8-10.6)
[2020-01-20 10:53] LABS: Lymphocytes # (M) 0.29 k/uL (1.0-4.8); Monocytes # (M) 0.19 k/uL (0-1.0); Neutrophils # (M) 9.12 k/uL (1.3-7.7); Neutrophils % (M) 95 %; Nucleated Red Blood Cells 0 /100 WBC (0-0); Total Cells Counted 100
[2020-01-20] MEDS: SODIUM CHLORIDE 0.9% 1,000 ML IV SCH (16:43)
[2020-01-20] MEDS: HYDROcodone/APAP 5-325MG 1 EACH TAB PO PRN (22:14)
[2020-01-20] MEDS: risperiDONE 0.25 MG TAB PO SCH (22:14)
[2020-01-20] MEDS: LATANOPROST 0.005% OPHTH DROPS 2.5 ML BTL BOTH EYES SCH (22:15)
--- NOTE | 2020-01-20 23:55 | PN ---
PROGRESS NOTE DATE OF SERVICE: 01/20/2020 This 85-year-old gentleman who was admitted with multiple medical problems including hematuria. He continues to be confused. The patient on multiple medications and the patient had a new catheter replaced. Irrigation has been stopped. Hemoglobin is at 10.3 multiple. The creatinine is 2.3. UA noted and cultures are not available. PAST MEDICAL HISTORY: Reviewed. REVIEW OF SYSTEMS: Review of system could not be taken, the patient is confused and stuporous. CURRENT MEDICATIONS: The current medications are reviewed and include: 1. Tylenol p.r.n. 2. [place] 5 mg q.6 p.r.n. 3. Maalox. 4. DuoNeb q.i.d. and p.r.n. 5. Xanax 0.25 q.6. 6. Augmentin b.i.d. 7. Pulmicort 1 mg b.i.d. 8. Symbicort 160/4.5 two puffs b.i.d. 10.Pepcid. 11.Iron sulfate. 12.Folic acid. 13.Xalatan. 14.Synthroid. 15.Mild of magnesia. 16.Melatonin. 17.Toprol-XL. 18.ProAmatine. 19.Multivitamins. 20.Narcan. 21.Protonix. 22.MiraLAX. 23.Risperdal. 24.Vitamin B1. PHYSICAL EXAMINATION: The patient is stuporous. Pulse is 100, blood pressure is 111/68, respiration 17, temperature 98 degrees, pulse ox 99% on 4 L. HEENT: Conjunctivae normal. NECK: No jugular venous distention. CARDIOVASCULAR: S1, S2 muffled. RESPIRATORY: Breath sounds diminished at the bases. Bilateral scattered rhonchi and crackles. ABDOMEN: Soft, nontender. No mass palpable. LEGS: No edema, no swelling. NERVOUS SYSTEM: Diffusely weak. LABS: WBC 9.6, hemoglobin 10.3, and creatinine is 2.31. ASSESSMENT: 1. Hematuria, possibly secondary to trauma for evaluation. 2. Status post Hearn catheter reinsertion. 3. History of recent right pleural effusion, thoracocentesis. 4. History of chronic obstructive pulmonary disease acute exacerbation. 5. Change in mental status, metabolic encephalopathy, acute on chronic. 6. History of recent right pleural effusion tapping. 7. Possible underlying dementia. 8. Cerebral atrophy. 9. CT scan of the chest showing masslike atelectasis previously. 10.Chronic kidney disease stage 3 with history of recent acute tubular necrosis, acute renal failure. 11.History of right knee hemarthrosis recently. 12.History of fall and gait dysfunction. 13.Metabolic encephalopathy secondary to above. 14.Generalized weakness. 15.Chronic right-sided pleural effusion. 16.History of nicotine dependence. 17.Hypertension. 18.History of diabetes mellitus type 2. 19.History of gait dysfunction. 20.Persistent atrial fibrillation. 21.Chronic degenerative joint disease. 22.Hypothyroidism. 23.Gastroesophageal reflux disease. 24.History of mitral regurgitation. 25.History of pulmonary hypertension secondary to chronic obstructive pulmonary disease. 26.NO CODE, NO CPR, NO VENT. RECOMMENDATIONS AND DISCUSSION: I recommend to continue current medications. Continue symptomatic treatment. Otherwise, repeat labs. Continue with cautious hydration. Otherwise guarded prognosis because of multiple complex medical issues. Further recommendations to follow. MMSILVERL / SKYEN: [id number] / MTDD
[2020-01-21] MEDS: ALPRAZolam 0.25 MG TAB PO PRN ×3 (03:33→22:56)
[2020-01-21] MEDS: MELATONIN 3 MG TABLET PO PRN (03:33)
[2020-01-21] MEDS: HYDROcodone/APAP 5-325MG 1 EACH TAB PO PRN ×2 (03:33→23:00)
[2020-01-21] MEDS: LEVOTHYROXINE 112 MCG TAB PO SCH (05:44)
[2020-01-21] MEDS: SODIUM CHLORIDE 0.9% IRRIGATIO 3,000 ML IRRIGATION SCH (05:46)
[2020-01-21] MEDS: MIDODRINE 5 MG TAB PO SCH ×3 (08:04→22:57)
[2020-01-21] MEDS: FERROUS SULFATE 325 MG TAB PO SCH (08:08)
[2020-01-21] MEDS: THIAMINE 100 MG TAB PO SCH (08:08)
[2020-01-21] MEDS: FAMOTIDINE 20 MG TAB PO SCH (08:08)
[2020-01-21] MEDS: METOPROLOL SUCCINATE (ER) 25 MG TAB.ER.24H PO SCH (08:08)
[2020-01-21] MEDS: FOLIC ACID 1 MG TAB PO SCH (08:09)
[2020-01-21] MEDS: MULTIVITAMINS, THERA 1 EACH TAB PO SCH (08:09)
[2020-01-21] MEDS: PANTOPRAZOLE 40 MG/10 ML VIAL IVP SCH (08:09)
[2020-01-21] MEDS: AMOXIC-POT CLAV 875-125MG 1 EACH TAB PO SCH (08:09)
[2020-01-21] MEDS: SODIUM BICARBONATE TAB 650 MG TAB PO SCH ×2 (08:09→22:56)
[2020-01-21] MEDS: IPRATROPIUM-ALBUTEROL 3 ML NEB INHALATION SCH ×5 (08:54→20:56)
[2020-01-21] MEDS: BUDESONIDE 1 MG/2 ML NEBU INHALATION SCH ×2 (08:54→20:55)
[2020-01-21] MEDS: SYMBICORT 160-4.5 MCG INHALER INHALATION SCH ×2 (08:55→21:03)
--- NOTE | 2020-01-21 20:31 | P.PN ---
Progress Note - Text Progress Note Date: 01/21/20 History of presenting complaint: This is a very pleasant 85-year-old patient of Dr. Gee. Chronic stable medical conditions include diabetes, GERD, hypertension, hypothyroid, diverticulosis, osteoarthritis, atrial fibrillation, chronic right-sided pleural effusion has had thoracentesis 2. Has some chronic loculation. Not a Candidate for anticoagulation because of lower GI bleeding. Also's had recurrent rectal bleeding because of radiation proctitis and anticoagulation. Has known radiation cystitis and does follow with Dr. Guzman. Does use a scooter at baseline. Lives at [facility]. Has been still smoking up to very recently. Patient normally uses a wheelchair. admitted on January 03 through January 15 with severe pain in the right knee. Patient felt to have hemarthrosis and about 15 mL of fluid was drained. Also steroid injection. Was done. Discharged to [facility] on January 15. Patient now returned the following day to the ER with change in mental status as well as hematuria. Today-. Remains to be delirious. Tired. Has a [place] catheter. Urine is clear. Did eat some breakfast and some lunch. With assistance Review of systems: Attempted for constitutional, cardiovascular, GI, pulmonary. relevant finding as above Active Medications Acetaminophen (Tylenol Tab) 650 mg PO Q6HR PRN PRN Reason: Mild Pain or Fever > 100.5 Hydrocodone Bitart/Acetaminophen ([place] 5-325) 1 each PO Q6HR PRN PRN Reason: MODERATE Pain IF TAKING PO MED Last Admin: 01/21/20 03:33 Dose: 1 each Documented by: Al Hydroxide/Mg Hydroxide (Maalox) 15 ml PO Q6HR PRN PRN Reason: Indigestion Albuterol/Ipratropium (Duoneb 0.5 Mg-3 Mg/3 Ml Soln) 3 ml INHALATION RT-QID PRN PRN Reason: Shortness Of Breath Or Wheezing Albuterol/Ipratropium (Duoneb 0.5 Mg-3 Mg/3 Ml Soln) 3 ml INHALATION RT-QID [facility] Last Admin: 01/21/20 16:42 Dose: 3 ml Documented by: Alprazolam (Xanax) 0.25 mg PO Q6HR PRN PRN Reason: Anxiety Last Admin: 01/21/20 12:27 Dose: 0.25 mg Documented by: Amoxicillin/Clavulanate Potassium (Augmentin 500-125 Mg) 1 each PO Q12HR [facility] Stop: 01/23/20 09:01 Budesonide (Pulmicort) 1 mg INHALATION RT-BID [facility] Last Admin: 01/21/20 08:54 Dose: 1 mg Documented by: Budesonide/Formoterol Fumarate (Symbicort 160-4.5 Mcg Inhaler) 2 puff INHALATION RT-BID [facility] Last Admin: 01/21/20 08:55 Dose: Not Given Documented by: Calcium Carbonate/Glycine (Tums) 1,000 mg PO Q4HR PRN PRN Reason: Dyspepsia Ferrous Sulfate (Feosol) 325 mg PO DAILY@0800 [facility] Last Admin: 01/21/20 08:08 Dose: 325 mg Documented by: Folic Acid (Folic Acid) 1 mg PO DAILY [facility] Last Admin: 01/21/20 08:09 Dose: 1 mg Documented by: Sodium Chloride (Saline 0.9%) 1,000 mls @ 50 mls/hr IV .Q20H [facility] Last Admin: 01/20/20 16:43 Dose: Not Given Documented by: Sodium Chloride (Saline 0.9% Irrigation) 3,000 mls @ 0 mls/hr IRRIGATION CONTINUOUS [facility]; Protocol Last Admin: 01/21/20 05:46 Dose: Not Given Documented by: Sodium Chloride (Saline 0.9% Irrigation) 3,000 mls @ 3,000 mls/hr IRRIGATION Q1H PRN PRN Reason: . Latanoprost (Xalatan 0.005%) 1 drops BOTH EYES [facility] Last Admin: 01/20/20 22:15 Dose: 1 drops Documented by: Levothyroxine Sodium (Synthroid) 112 mcg PO DAILY@0600 [facility] Last Admin: 01/21/20 05:44 Dose: 112 mcg Documented by: Magnesium Hydroxide (Milk Of Magnesia) 2,400 mg PO DAILY PRN PRN Reason: Constipation Melatonin (Melatonin) 3 mg PO HS PRN PRN Reason: Insomnia Last Admin: 01/21/20 03:33 Dose: 3 mg Documented by: Metoprolol Succinate (Toprol Xl) 25 mg PO DAILY [facility] Last Admin: 01/21/20 08:08 Dose: 25 mg Documented by: Midodrine (Proamatine) 10 mg PO AC-TID [facility] Last Admin: 01/21/20 11:59 Dose: Not Given Documented by: Multivitamins (Theragran) 1 each PO DAILY [facility] Last Admin: 01/21/20 08:09 Dose: 1 each Documented by: Naloxone HCl (Narcan) 0.2 mg IV Q2M PRN PRN Reason: Opioid Reversal Pantoprazole Sodium (Protonix) 40 mg IVP DAILY [facility] Last Admin: 01/21/20 08:09 Dose: 40 mg Documented by: Polyethylene Glycol (Miralax) 17 gm PO DAILY PRN PRN Reason: Constipation Sodium Bicarbonate (Sodium Bicarbonate Tab) 650 mg PO BID [facility] Last Admin: 01/21/20 08:09 Dose: 650 mg Documented by: Thiamine HCl (Vitamin B-1) 100 mg PO DAILY [facility] Last Admin: 01/21/20 08:08 Dose: 100 mg Documented by: Physical examination: VITAL SIGNS: Afebrile, 117, 20, 149/90, 99% on 4 L GENERAL: Laying in bed, tired, but delirious EYES: Pupils equal. Conjunctiva pale HEENT: External appearance of nose and ears normal, oral cavity grossly normal. NECK: JVD not raised; masses not palpable. HEART: First and second heart sounds are normal; no edema. LUNGS: Respiratory rate increased, decreased breath sounds extremity wheezing ABDOMEN: Soft, nontender, liver spleen not palpable, no masses palpable. PSYCH: Rather delirious May answer occasional question. MUSCULOSKELETAL: Evidence of OA INVESTIGATIONS, reviewed in the clinical context: White count 9.6 hemoglobin 10.3 potassium 4.5 bun 80 creatine 2.31 Assessment: -Severe hematuria in a patient with known radiation cystitis. Now clearing up. Options are rather limited. POA -Acute COPD exacerbations in a current smoker, POA -Acute delirium from above, slow to respond - chronic right-sided pleural effusion with thoracentesis 2 in the past likely transudate with some loculated pleural effusion -Chronic nicotine dependence patient cigarette smoker -Essential hypertension -Diabetes mellitus type 2 on oral hypoglycemic -Chronic gait dysfunction uses a wheelchair -Persistent atrial fibrillation not a candidate for any anticoagulation -Chronic thoracic spine osteoarthritis -Hypothyroidism -GERD -Moderate to severe mitral regurgitation nonrheumatic -Severe tricuspid regurgitation nonrheumatic -Severe secondary pulmonary hypertension secondary to COPD -Acute kidney injury patient's creatinine was 1.18 on December 26. Possibly ATN -No code Plan: -Continue with nebulized bronchodilators. Continue with inhaled steroids. DC Symbicort as patient will not be ordered coordinated the same. Increase IV fluids. Prognosis guarded.
[2020-01-21] MEDS ORDERED: FLUCONAZOLE 150 MG TAB PO STA (20:33)
[2020-01-21] MEDS: FORMOTEROL FUMARATE 20 MCG/2 ML NEBU INHALATION SCH (20:59)
[2020-01-21] MEDS ORDERED: AMOXIC-POT CLAV 500-125 MG 1 EACH TAB PO SCH (21:00)
[2020-01-21] MEDS: LATANOPROST 0.005% OPHTH DROPS 2.5 ML BTL BOTH EYES SCH (23:18)
[2020-01-21] MEDS: SODIUM CHLORIDE 0.9% 1,000 ML IV SCH (23:20)
[2020-01-22] MEDS: SODIUM CHLORIDE 0.9% IRRIGATIO 3,000 ML IRRIGATION SCH (00:54)
[2020-01-22] MEDS: HYDROcodone/APAP 5-325MG 1 EACH TAB PO PRN ×2 (06:11→22:05)
[2020-01-22] MEDS: SODIUM CHLORIDE 0.9% 1,000 ML IV SCH ×3 (06:11→23:31)
[2020-01-22] MEDS: LEVOTHYROXINE 112 MCG TAB PO SCH (06:11)
[2020-01-22] MEDS: METOPROLOL SUCCINATE (ER) 25 MG TAB.ER.24H PO SCH (07:34)
[2020-01-22] MEDS: PANTOPRAZOLE 40 MG/10 ML VIAL IVP SCH (07:34)
[2020-01-22] MEDS: FOLIC ACID 1 MG TAB PO SCH (07:34)
[2020-01-22] MEDS: MULTIVITAMINS, THERA 1 EACH TAB PO SCH (07:34)
[2020-01-22] MEDS: MIDODRINE 5 MG TAB PO SCH ×3 (07:34→16:33)
[2020-01-22] MEDS: FERROUS SULFATE 325 MG TAB PO SCH (07:34)
[2020-01-22] MEDS: SODIUM BICARBONATE TAB 650 MG TAB PO SCH ×2 (07:34→22:05)
[2020-01-22] MEDS: THIAMINE 100 MG TAB PO SCH (07:34)
[2020-01-22] MEDS: FORMOTEROL FUMARATE 20 MCG/2 ML NEBU INHALATION SCH ×2 (08:53→19:44)
[2020-01-22] MEDS: IPRATROPIUM-ALBUTEROL 3 ML NEB INHALATION SCH ×4 (08:53→19:34)
[2020-01-22] MEDS: BUDESONIDE 1 MG/2 ML NEBU INHALATION SCH ×2 (08:53→19:34)
[2020-01-22 11:34] LABS: Potassium 3.2 mmol/L (3.5-5.1)
[2020-01-22 11:41] LABS: Calcium 5.7 mg/dL (8.4-10.2)
[2020-01-22] MEDS ORDERED: CALCIUM GLUCONATE 1 GM in SODIUM CHLORIDE 0.9% 100 ML IVPB ONE (13:00)
--- NOTE | 2020-01-22 21:55 | P.PN ---
Progress Note - Text Progress Note Date: 01/22/20 History of presenting complaint: This is a very pleasant 85-year-old patient of Dr. Gee. Chronic stable medical conditions include diabetes, GERD, hypertension, hypothyroid, diverticulosis, osteoarthritis, atrial fibrillation, chronic right-sided pleural effusion has had thoracentesis 2. Has some chronic loculation. Not a Candidate for anticoagulation because of lower GI bleeding. Also's had recurrent rectal bleeding because of radiation proctitis and anticoagulation. Has known radiation cystitis and does follow with Dr. Guzman. Does use a scooter at baseline. Lives at [facility]. Has been still smoking up to very recently. Patient normally uses a wheelchair. admitted on January 03 through January 15 with severe pain in the right knee. Patient felt to have hemarthrosis and about 15 mL of fluid was drained. Also steroid injection. Was done. Discharged to [facility] on January 15. Patient now returned the following day to the ER with change in mental status as well as hematuria. Today-. Continues to be delirious. Been eating. Confused. Review of systems: Attempted for constitutional, cardiovascular, GI, pulmonary. relevant finding as above Active Medications Acetaminophen (Tylenol Tab) 650 mg PO Q6HR PRN PRN Reason: Mild Pain or Fever > 100.5 Hydrocodone Bitart/Acetaminophen ([place] 5-325) 1 each PO Q6HR PRN PRN Reason: MODERATE Pain IF TAKING PO MED Last Admin: 01/22/20 06:11 Dose: 1 each Documented by: Al Hydroxide/Mg Hydroxide (Maalox) 15 ml PO Q6HR PRN PRN Reason: Indigestion Albuterol/Ipratropium (Duoneb 0.5 Mg-3 Mg/3 Ml Soln) 3 ml INHALATION RT-QID PRN PRN Reason: Shortness Of Breath Or Wheezing Albuterol/Ipratropium (Duoneb 0.5 Mg-3 Mg/3 Ml Soln) 3 ml INHALATION RT-QID [facility] Last Admin: 01/22/20 19:34 Dose: 3 ml Documented by: Alprazolam (Xanax) 0.25 mg PO Q6HR PRN PRN Reason: Anxiety Last Admin: 01/21/20 22:56 Dose: 0.25 mg Documented by: Budesonide (Pulmicort) 1 mg INHALATION RT-BID [facility] Last Admin: 01/22/20 19:34 Dose: 1 mg Documented by: Calcium Carbonate/Glycine (Tums) 1,000 mg PO Q4HR PRN PRN Reason: Dyspepsia Ferrous Sulfate (Feosol) 325 mg PO DAILY@0800 [facility] Last Admin: 01/22/20 07:34 Dose: 325 mg Documented by: Folic Acid (Folic Acid) 1 mg PO DAILY [facility] Last Admin: 01/22/20 07:34 Dose: 1 mg Documented by: Formoterol Fumarate (Perforomist) 20 mcg INHALATION RT-BID [facility] Last Admin: 01/22/20 19:44 Dose: 20 mcg Documented by: Sodium Chloride (Saline 0.9% Irrigation) 3,000 mls @ 0 mls/hr IRRIGATION CONTINUOUS [facility]; Protocol Last Admin: 01/22/20 00:54 Dose: Not Given Documented by: Sodium Chloride (Saline 0.9% Irrigation) 3,000 mls @ 3,000 mls/hr IRRIGATION Q1H PRN PRN Reason: . Sodium Chloride (Saline 0.9%) 1,000 mls @ 130 mls/hr IV .Q7H42M [facility] Last Admin: 01/22/20 18:07 Dose: 130 mls/hr Documented by: Latanoprost (Xalatan 0.005%) 1 drops B[facility] EYES [facility] Last Admin: 01/21/20 23:18 Dose: 1 drops Documented by: Levothyroxine Sodium (Synthroid) 112 mcg PO DAILY@0600 [facility] Last Admin: 01/22/20 06:11 Dose: 112 mcg Documented by: Magnesium Hydroxide (Milk Of Magnesia) 2,400 mg PO DAILY PRN PRN Reason: Constipation Melatonin (Melatonin) 3 mg PO HS PRN PRN Reason: Insomnia Last Admin: 01/21/20 03:33 Dose: 3 mg Documented by: Metoprolol Succinate (Toprol Xl) 25 mg PO DAILY [facility] Last Admin: 01/22/20 07:34 Dose: 25 mg Documented by: Midodrine (Proamatine) 10 mg PO AC-TID [facility] Last Admin: 01/22/20 16:33 Dose: Not Given Documented by: Multivitamins (Theragran) 1 each PO DAILY [facility] Last Admin: 01/22/20 07:34 Dose: 1 each Documented by: Naloxone HCl (Narcan) 0.2 mg IV Q2M PRN PRN Reason: Opioid Reversal Pantoprazole Sodium (Protonix) 40 mg IVP DAILY [facility] Last Admin: 01/22/20 07:34 Dose: 40 mg Documented by: Polyethylene Glycol (Miralax) 17 gm PO DAILY PRN PRN Reason: Constipation Sodium Bicarbonate (Sodium Bicarbonate Tab) 650 mg PO BID [facility] Last Admin: 01/22/20 07:34 Dose: 650 mg Documented by: Thiamine HCl (Vitamin B-1) 100 mg PO DAILY [facility] Last Admin: 01/22/20 07:34 Dose: 100 mg Documented by: Physical examination: VITAL SIGNS: 98.4, 100, 20, 130 27,91%on4L GENERAL: Laying in bed, tired, but delirious EYES: Pupils equal. Conjunctiva pale HEENT: External appearance of nose and ears normal, oral cavity grossly normal. NECK: JVD not raised; masses not palpable. HEART: First and second heart sounds are normal; no edema. LUNGS: Respiratory rate increased, decreased breath sounds extremity wheezing ABDOMEN: Soft, nontender, liver spleen not palpable, no masses palpable. PSYCH: Rather delirious May answer occasional question. MUSCULOSKELETAL: Evidence of OA INVESTIGATIONS, reviewed in the clinical context: Potassium 3.2 bicarb 16 bun 54 creatinine 1.4 to Assessment: -Severe hematuria in a patient with known radiation cystitis. Improved. POA -Acute COPD exacerbations in a current smoker, POA, improving -Acute delirium from above, slow to respond - chronic right-sided pleural effusion with thoracentesis 2 in the past likely transudate with some loculated pleural effusion -Chronic nicotine dependence patient cigarette smoker -Essential hypertension -Diabetes mellitus type 2 on oral hypoglycemic -Chronic gait dysfunction uses a wheelchair -Persistent atrial fibrillation not a candidate for any anticoagulation -Chronic thoracic spine osteoarthritis -Hypothyroidism -GERD -Moderate to severe mitral regurgitation nonrheumatic -Severe tricuspid regurgitation nonrheumatic -Severe secondary pulmonary hypertension secondary to COPD -Acute kidney injury patient's creatinine was 1.18 on December 26. Possibly ATN -No code Plan: -Continue with nebulized bronchodilators., inhaled steroids. IV fluids. Prognosis guarded. Repeat labs in the morning. Add sodium bicarbonate to IV fluids. Change fluids to D5 0.45.
[2020-01-22] MEDS: ALPRAZolam 0.25 MG TAB PO PRN (22:05)
[2020-01-22] MEDS: LATANOPROST 0.005% OPHTH DROPS 2.5 ML BTL BOTH EYES SCH (22:05)
[2020-01-23] MEDS: DEXTROSE 5%-0.45% NACL 1,000 ML with SODIUM BICARB (1 MEQ/ML) 50 ML IV SCH ×4 (00:01→12:30)
[2020-01-23] MEDS: SODIUM CHLORIDE 0.9% IRRIGATIO 3,000 ML IRRIGATION SCH (02:05)
[2020-01-23] MEDS: ALPRAZolam 0.25 MG TAB PO PRN (04:06)
[2020-01-23] MEDS: HYDROcodone/APAP 5-325MG 1 EACH TAB PO PRN ×2 (04:06→22:21)
[2020-01-23] MEDS: LEVOTHYROXINE 112 MCG TAB PO SCH (06:07)
[2020-01-23] MEDS: PANTOPRAZOLE 40 MG/10 ML VIAL IVP SCH (07:47)
[2020-01-23] MEDS: FOLIC ACID 1 MG TAB PO SCH (07:48)
[2020-01-23] MEDS: THIAMINE 100 MG TAB PO SCH (07:48)
[2020-01-23] MEDS: MULTIVITAMINS, THERA 1 EACH TAB PO SCH (07:48)
[2020-01-23] MEDS: METOPROLOL SUCCINATE (ER) 25 MG TAB.ER.24H PO SCH (07:48)
[2020-01-23] MEDS: MIDODRINE 5 MG TAB PO SCH ×3 (07:48→17:11)
[2020-01-23] MEDS: FERROUS SULFATE 325 MG TAB PO SCH (07:48)
[2020-01-23] MEDS: SODIUM BICARBONATE TAB 650 MG TAB PO SCH (07:48)
[2020-01-23] MEDS: IPRATROPIUM-ALBUTEROL 3 ML NEB INHALATION SCH ×5 (08:02→20:01)
[2020-01-23] MEDS: FORMOTEROL FUMARATE 20 MCG/2 ML NEBU INHALATION SCH ×2 (08:03→19:39)
[2020-01-23] MEDS: BUDESONIDE 1 MG/2 ML NEBU INHALATION SCH ×3 (08:03→19:44)
[2020-01-23 09:26] LABS: Anisocytosis Slight; Basophils % (A) 0 %; Eosinophils # (A) 0.1 k/uL (0-0.7); Eosinophils % (A) 2 %; HCT 33.4 % (39.0-53.0); HGB 10.3 gm/dL (13.0-17.5); Hypochromasia Marked; Lymphocytes # (A) 0.4 k/uL (1.0-4.8); Lymphocytes % (A) 5 %; MCH 37.4 pg (25.0-35.0); MCHC 30.9 g/dL (31.0-37.0); Macrocytosis Marked; Monocytes # (A) 0.3 k/uL (0-1.0); Monocytes % (A) 4 %; Neutrophils # (A) 7.2 k/uL (1.3-7.7); Neutrophils % (A) 89 %; Platelet Count 134 k/uL (150-450); Poikilocytosis Slight; RBC 2.77 m/uL (4.30-5.90); RDW 16.5 % (11.5-15.5); WBC 8.1 k/uL (3.8-10.6)
[2020-01-23 09:28] LABS: MCV 120.8 fL (80.0-100.0)
[2020-01-23 09:43] LABS: Calcium 8.5 mg/dL (8.4-10.2); Potassium 4.4 mmol/L (3.5-5.1)
--- NOTE | 2020-01-23 19:52 | P.PN ---
Progress Note - Text Progress Note Date: 01/23/20 History of presenting complaint: This is a very pleasant 85-year-old patient of Dr. Gee. Chronic stable medical conditions include diabetes, GERD, hypertension, hypothyroid, diverticulosis, osteoarthritis, atrial fibrillation, chronic right-sided pleural effusion has had thoracentesis 2. Has some chronic loculation. Not a Candidate for anticoagulation because of lower GI bleeding. Also's had recurrent rectal bleeding because of radiation proctitis and anticoagulation. Has known radiation cystitis and does follow with Dr. Guzman. Does use a scooter at baseline. Lives at [facility]. Has been still smoking up to very recently. Patient normally uses a wheelchair. admitted on January 03 through January 15 with severe pain in the right knee. Patient felt to have hemarthrosis and about 15 mL of fluid was drained. Also steroid injection. Was done. Discharged to [facility] on January 15. Patient now returned the following day to the ER with change in mental status as well as hematuria. Today-. Patient condition retired lethargic delirious. Barely eating. Not really answering questions. Review of systems: Attempted for constitutional, cardiovascular, GI, pulmonary. relevant finding as above Active Medications Acetaminophen (Tylenol Tab) 650 mg PO Q6HR PRN PRN Reason: Mild Pain or Fever > 100.5 Hydrocodone Bitart/Acetaminophen ([place] 5-325) 1 each PO Q6HR PRN PRN Reason: MODERATE Pain IF TAKING PO MED Last Admin: 01/23/20 04:06 Dose: 1 each Documented by: Al Hydroxide/Mg Hydroxide (Maalox) 15 ml PO Q6HR PRN PRN Reason: Indigestion Albuterol/Ipratropium (Duoneb 0.5 Mg-3 Mg/3 Ml Soln) 3 ml INHALATION RT-QID PRN PRN Reason: Shortness Of Breath Or Wheezing Albuterol/Ipratropium (Duoneb 0.5 Mg-3 Mg/3 Ml Soln) 3 ml INHALATION RT-QID [facility] Last Admin: 01/23/20 16:17 Dose: 3 ml Documented by: Alprazolam (Xanax) 0.25 mg PO Q6HR PRN PRN Reason: Anxiety Last Admin: 01/23/20 04:06 Dose: 0.25 mg Documented by: Budesonide (Pulmicort) 1 mg INHALATION RT-BID [facility] Last Admin: 01/23/20 19:44 Dose: Not Given Documented by: Calcium Carbonate/Glycine (Tums) 1,000 mg PO Q4HR PRN PRN Reason: Dyspepsia Ferrous Sulfate (Feosol) 325 mg PO DAILY@0800 [facility] Last Admin: 01/23/20 07:48 Dose: 325 mg Documented by: Folic Acid (Folic Acid) 1 mg PO DAILY [facility] Last Admin: 01/23/20 07:48 Dose: 1 mg Documented by: Formoterol Fumarate (Perforomist) 20 mcg INHALATION RT-BID [facility] Last Admin: 01/23/20 19:39 Dose: 20 mcg Documented by: Sodium Chloride (Saline 0.9% Irrigation) 3,000 mls @ 0 mls/hr IRRIGATION CONTINUOUS [facility]; Protocol Last Admin: 01/23/20 02:05 Dose: Not Given Documented by: Sodium Chloride (Saline 0.9% Irrigation) 3,000 mls @ 3,000 mls/hr IRRIGATION Q1H PRN PRN Reason: . Sodium Bicarbonate 50 ml/ (Dextrose/Sodium Chloride) 1,050 mls @ 75 mls/hr IV .Q14H [facility] Last Admin: 01/23/20 12:30 Dose: 75 mls/hr Documented by: Latanoprost (Xalatan 0.005%) 1 drops BOTH EYES [facility] Last Admin: 01/22/20 22:05 Dose: 1 drops Documented by: Levothyroxine Sodium (Synthroid) 112 mcg PO DAILY@0600 [facility] Last Admin: 01/23/20 06:07 Dose: 112 mcg Documented by: Magnesium Hydroxide (Milk Of Magnesia) 2,400 mg PO DAILY PRN PRN Reason: Constipation Melatonin (Melatonin) 3 mg PO HS PRN PRN Reason: Insomnia Last Admin: 01/21/20 03:33 Dose: 3 mg Documented by: Metoprolol Succinate (Toprol Xl) 25 mg PO DAILY [facility] Last Admin: 01/23/20 07:48 Dose: 25 mg Documented by: Midodrine (Proamatine) 10 mg PO AC-TID [facility] Last Admin: 01/23/20 17:11 Dose: Not Given Documented by: Multivitamins (Theragran) 1 each PO DAILY [facility] Last Admin: 01/23/20 07:48 Dose: 1 each Documented by: Naloxone HCl (Narcan) 0.2 mg IV Q2M PRN PRN Reason: Opioid Reversal Pantoprazole Sodium (Protonix) 40 mg IVP DAILY [facility] Last Admin: 01/23/20 07:47 Dose: 40 mg Documented by: Polyethylene Glycol (Miralax) 17 gm PO DAILY PRN PRN Reason: Constipation Sodium Bicarbonate (Sodium Bicarbonate Tab) 650 mg PO BID [facility] Last Admin: 01/23/20 07:48 Dose: 650 mg Documented by: Thiamine HCl (Vitamin B-1) 100 mg PO DAILY [facility] Last Admin: 01/23/20 07:48 Dose: 100 mg Documented by: Physical examination: VITAL SIGNS: 96.9, 103, 16, 96/66, 100% on 4 L GENERAL: Laying in bed, tired, but delirious EYES: Pupils equal. Conjunctiva pale HEENT: External appearance of nose and ears normal, oral cavity dry mucous membranes NECK: JVD not raised; masses not palpable. HEART: First and second heart sounds are normal; no edema. LUNGS: Respiratory rate increased, decreased breath sounds-wheezing ABDOMEN: Soft, nontender, liver spleen not palpable, no masses palpable. PSYCH: Delirious, confused MUSCULOSKELETAL: Evidence of OA INVESTIGATIONS, reviewed in the clinical context: White count 8.1 hemoglobin 10.3 potassium 4.4 sodium 147 bun 67 creatinine 1.99 Assessment: -Severe hematuria in a patient with known radiation cystitis. Improved. POA -Acute COPD exacerbations in a current smoker, POA, improving -Acute delirium from above,-not improving - chronic right-sided pleural effusion with thoracentesis 2 in the past likely transudate with some loculated pleural effusion -Chronic nicotine dependence patient cigarette smoker -Essential hypertension -Diabetes mellitus type 2 on oral hypoglycemic -Chronic gait dysfunction uses a wheelchair -Persistent atrial fibrillation not a candidate for any anticoagulation -Chronic thoracic spine osteoarthritis -Hypothyroidism -GERD -Moderate to severe mitral regurgitation nonrheumatic -Severe tricuspid regurgitation nonrheumatic -Severe secondary pulmonary hypertension secondary to COPD -Acute kidney injury patient's creatinine was 1.18 on December 26. Possibly ATN -No code Plan: Continue current medication treatment plan including bronchodilators, steroids, IV fluids. Prognosis is not good. Advanced care planning: Spoke to patient's daughter Batsheva Salas over the phone. She lives in [place]. Admitted very lengthy discussion with her. She was here last Tuesday visit to the patient. She has a good grasp of the patient now doing well. She does understand that probably stenosis end-of-life. After lengthy discussion she decided to proceed with hospice. Patient lives at [facility] reports that clot except the patient. She will look into hospice house in [place] and discuss with them about discharge diet. Patient is a no code. Other nonessential medications will all be scaled back. balancing machine set up worker will be involved. Looking at possible discharged tomorrow. Total time spent for a ACP was about 25 minutes
[2020-01-23] MEDS: LATANOPROST 0.005% OPHTH DROPS 2.5 ML BTL BOTH EYES SCH (22:22)
[2020-01-24] MEDS: SODIUM CHLORIDE 0.9% IRRIGATIO 3,000 ML IRRIGATION SCH (00:40)
[2020-01-24] MEDS: DEXTROSE 5%-0.45% NACL 1,000 ML with SODIUM BICARB (1 MEQ/ML) 50 ML IV SCH ×2 (02:31)
[2020-01-24] MEDS: ALPRAZolam 0.25 MG TAB PO PRN (04:16)
[2020-01-24] MEDS: HYDROcodone/APAP 5-325MG 1 EACH TAB PO PRN (06:00)
[2020-01-24] MEDS: LEVOTHYROXINE 112 MCG TAB PO SCH (06:00)
[2020-01-24] MEDS: FORMOTEROL FUMARATE 20 MCG/2 ML NEBU INHALATION SCH (08:04)
[2020-01-24] MEDS: BUDESONIDE 1 MG/2 ML NEBU INHALATION SCH (08:04)
[2020-01-24] MEDS: IPRATROPIUM-ALBUTEROL 3 ML NEB INHALATION SCH ×2 (08:05→12:12)
[2020-01-24 08:10] VITALS: BP 88/59; TEMP 97.9
[2020-01-24 08:17] VITALS: PULSE 100
[2020-01-24] MEDS: MIDODRINE 5 MG TAB PO SCH (08:57)
[2020-01-24] MEDS: METOPROLOL SUCCINATE (ER) 25 MG TAB.ER.24H PO SCH (08:58)
[2020-01-24] MEDS: PANTOPRAZOLE 40 MG/10 ML VIAL IVP SCH (08:59)
[2020-01-24 10:53] VITALS: BMI 24.9
[2020-01-24 11:24] VITALS: RESP 12
--- NOTE | 2020-01-24 23:08 | P.DS ---
Providers Date of admission: 01/17/20 16:21 Expected date of discharge: 01/24/20 Attending physician: Ramez Redman Consults: 01/17/20 16:25 Consult Physician Routine Consulting Provider: Anton Guzman Consult Reason/Comments: hematuria Do you want consulting provider notified?: Yes Primary care physician: [facility] Course: History of presenting complaint: This is a very pleasant 85-year-old patient of Dr. Gee. Chronic stable medical conditions include diabetes, GERD, hypertension, hypothyroid, diverticulosis, osteoarthritis, atrial fibrillation, chronic right-sided pleural effusion has had thoracentesis 2. Has some chronic loculation. Not a Candidate for anticoagulation because of lower GI bleeding. Also's had recurrent rectal bleeding because of radiation proctitis and anticoagulation. Has known radiation cystitis and does follow with Dr. Guzman. Does use a scooter at baseline. Lives at [facility]. Has been still smoking up to very recently. Patient normally uses a wheelchair. admitted on January 03 through January 15 with severe pain in the right knee. Patient felt to have hemarthrosis and about 15 mL of fluid was drained. Also steroid injection. Was done. Discharged to [facility] on January 15. Patient now returned the following day to the ER with change in mental status as well as hematuria. Patient continued to deteriorate. Spoke to patient daughter at length. Agree to proceed with hospice. Today-. Continues to deteriorate. Less responsive. Paperwork done. Patient admitted to the hospice house. Daughter is coming in from [place] this afternoon. Consultation: Dr. Guzman from urology Physical examination: VITAL SIGNS: 97.9, 89, 17, 80-59, 92% 4 L GENERAL: Laying in bed, lethargic EYES: Pupils equal. Conjunctiva pale HEENT: External appearance of nose and ears normal, oral cavity dry mucous membranes HEART: First and second heart sounds are normal; no edema. LUNGS: Respiratory rate increased, decreased breath sounds-wheezing ABDOMEN: Soft, nontender, liver spleen not palpable, no masses palpable. PSYCH: Delirious, INVESTIGATIONS, reviewed in the clinical context: White count 8.1 hemoglobin 10.3 potassium 4.4 sodium 147 bun 67 creatinine 1.99 Assessment: -Severe hematuria in a patient with known radiation cystitis. Improved. POA -Acute COPD exacerbations in a current smoker, POA, improving -Acute delirium from above,-not improving - chronic right-sided pleural effusion with thoracentesis 2 in the past likely transudate with some loculated pleural effusion -Chronic nicotine dependence patient cigarette smoker -Essential hypertension -Diabetes mellitus type 2 on oral hypoglycemic -Chronic gait dysfunction uses a wheelchair -Persistent atrial fibrillation not a candidate for any anticoagulation -Chronic thoracic spine osteoarthritis -Hypothyroidism -GERD -Moderate to severe mitral regurgitation nonrheumatic -Severe tricuspid regurgitation nonrheumatic -Severe secondary pulmonary hypertension secondary to COPD -Acute kidney injury patient's creatinine was 1.18 on December 26. Possibly ATN -No code Reason for hospice: End-stage COPD Disposition: Hospice [facility] Patient Condition at Discharge: Poor Plan - Discharge Summary New Discharge Prescriptions: Continue Levothyroxine Sodium [Synthroid] 112 mcg PO DAILY@0600 Polyethylene Glycol 3350 [Miralax] 17 gm PO DAILY PRN PRN Reason: Constipation Latanoprost/Pf [Latanoprost 0.005% Eye Drop] 1 drop BOTH EYES HS Ipratropium-Albuterol Nebulize [Duoneb 0.5 mg-3 mg/3 ml Soln] 3 ml INHALATION RT-QID ml Ipratropium-Albuterol Nebulize [Duoneb 0.5 mg-3 mg/3 ml Soln] 3 ml INHALATION RT-QID PRN ml PRN Reason: Shortness Of Breath Or Wheezing Mag Hydrox/Al Hydrox/Simeth [Maalox] 15 ml PO Q6HR PRN ml PRN Reason: Indigestion Melatonin 3 mg PO HS PRN tablet PRN Reason: Insomnia Magnesium Hydroxide [Milk of Magnesia Concentrate] 2,400 mg PO DAILY PRN ml PRN Reason: Constipation Famotidine [Pepcid] 20 mg PO DAILY tab ALPRAZolam [Xanax] 0.25 mg PO Q6HR PRN #4 tab PRN Reason: Anxiety Metoprolol Succinate (ER) [Toprol XL] 25 mg PO DAILY HYDROcodone/APAP 5-325MG [[place] 5-325] 1 tab PO Q6HR PRN PRN Reason: MODERATE Pain IF TAKING PO MED Discontinued Ferrous Gluconate 324 mg PO DAILY@0800 Budesonide-Formot 160-4.5 Mcg [Symbicort 160-4.5 Mcg Inhaler] 2 puff INHALATION RT-BID Budesonide [Pulmicort] 1 mg INHALATION RT-BID ml Sodium Bicarbonate Tab 650 mg PO BID tab Calcium Carbonate [Tums] 1,000 mg PO Q4HR PRN chew PRN Reason: Dyspepsia Acetaminophen Tab [Tylenol] 650 mg PO Q6HR PRN tab PRN Reason: Mild Pain Or Fever > 100.5 Amoxic-Pot Clav 875-125Mg [Augmentin 875-125] 1 tab PO Q12HR risperiDONE [RisperDAL] 0.125 mg PO DIRECTED Thiamine [Vitamin B-1] 100 mg PO DAILY Multivitamins, Thera [Multivitamin (formulary)] 1 tab PO DAILY predniSONE See Taper PO DIRECTED Folic Acid 1 mg PO DAILY Midodrine HCl [ProAmatine] 10 mg PO AC-TID INSULIN ASPART (NovoLOG) [NovoLOG (formulary)] See Protocol SQ ACHS Discharge Medication List Levothyroxine Sodium [Synthroid] 112 mcg PO DAILY@0600 06/15/19 [History] Polyethylene Glycol 3350 [Miralax] 17 gm PO DAILY PRN 09/26/19 [History] Latanoprost/Pf [Latanoprost 0.005% Eye Drop] 1 drop BOTH EYES HS 12/28/19 [History] ALPRAZolam [Xanax] 0.25 mg PO Q6HR PRN #4 tab 01/16/20 [Rx] Famotidine [Pepcid] 20 mg PO DAILY tab 01/16/20 [Rx] Ipratropium-Albuterol Nebulize [Duoneb 0.5 mg-3 mg/3 ml Soln] 3 ml INHALATION RT-QID ml 01/16/20 [Rx] Ipratropium-Albuterol Nebulize [Duoneb 0.5 mg-3 mg/3 ml Soln] 3 ml INHALATION RT-QID PRN ml 01/16/20 [Rx] Mag Hydrox/Al Hydrox/Simeth [Maalox] 15 ml PO Q6HR PRN ml 01/16/20 [Rx] Magnesium Hydroxide [Milk of Magnesia Concentrate] 2,400 mg PO DAILY PRN ml 01/16/20 [Rx] Melatonin 3 mg PO HS PRN tablet 01/16/20 [Rx] HYDROcodone/APAP 5-325MG [[place] 5-325] 1 tab PO Q6HR PRN 01/17/20 [History] Metoprolol Succinate (ER) [Toprol XL] 25 mg PO DAILY 01/17/20 [History] Follow up Appointment(s)/Referral(s): Yogi Bronson MD [Primary Care Provider] - As Needed [facility] Visiting Nurse, [NON-STAFF] - As Needed ([facility]) Discharge Disposition: DISCH TO HOSPICE MED FACILTY
== END 2020-01-24 16:50 | disposition hospice, home (50) | DRG 698 ==
LOC: EC 12:18 → 4SSUR 16:21
PROVIDERS: ADMIT Hospitalist; ATTEND Hospitalist
DX: N30.41 Irradiation cystitis with hematuria (principal); G93.41 Metabolic encephalopathy; N17.9 Acute kidney failure, unspecified; I48.19 Other persistent atrial fibrillation; J44.1 Chronic obstructive pulmonary disease with (acute) exacerbation; J90 Pleural effusion, not elsewhere classified; J98.11 Atelectasis; I27.23 Pulmonary hypertension due to lung diseases and hypoxia; G31.9 Degenerative disease of nervous system, unspecified; E11.22 Type 2 diabetes mellitus with diabetic chronic kidney disease; D64.9 Anemia, unspecified; E11.40 Type 2 diabetes mellitus with diabetic neuropathy, unspecified; N18.3 Chronic kidney disease, stage 3 (moderate); F02.80 Dementia in other diseases classified elsewhere, unspecified severity, without behavioral disturbance, psychotic disturbance, mood disturbance, and anxiety; Z79.4 Long term (current) use of insulin; I08.1 Rheumatic disorders of both mitral and tricuspid valves; I12.9 Hypertensive chronic kidney disease with stage 1 through stage 4 chronic kidney disease, or unspecified chronic kidney disease; K62.7 Radiation proctitis; E87.5 Hyperkalemia; Z66 Do not resuscitate; Z51.5 Encounter for palliative care; N39.41 Urge incontinence; N48.89 Other specified disorders of penis; M47.814 Spondylosis without myelopathy or radiculopathy, thoracic region; E89.0 Postprocedural hypothyroidism; K21.9 Gastro-esophageal reflux disease without esophagitis; F41.9 Anxiety disorder, unspecified; K57.90 Diverticulosis of intestine, part unspecified, without perforation or abscess without bleeding; M19.90 Unspecified osteoarthritis, unspecified site; F10.10 Alcohol abuse, uncomplicated; F17.210 Nicotine dependence, cigarettes, uncomplicated; K76.9 Liver disease, unspecified; R53.81 Other malaise; Z79.51 Long term (current) use of inhaled steroids; R26.9 Unspecified abnormalities of gait and mobility; Z79.890 Hormone replacement therapy; Z79.899 Other long term (current) drug therapy; Z91.81 History of falling; Z87.01 Personal history of pneumonia (recurrent); Z86.15 Personal history of latent tuberculosis infection; Z85.850 Personal history of malignant neoplasm of thyroid; Z85.828 Personal history of other malignant neoplasm of skin; Z87.11 Personal history of peptic ulcer disease; Z85.46 Personal history of malignant neoplasm of prostate; Z92.3 Personal history of irradiation; Z87.438 Personal history of other diseases of male genital organs; Z87.19 Personal history of other diseases of the digestive system; Z90.49 Acquired absence of other specified parts of digestive tract; Z95.0 Presence of cardiac pacemaker; Z98.890 Other specified postprocedural states; Z98.42 Cataract extraction status, left eye; Z98.41 Cataract extraction status, right eye; Z88.6 Allergy status to analgesic agent; Y84.2 Radiological procedure and radiotherapy as the cause of abnormal reaction of the patient, or of later complication, without mention of misadventure at the time of the procedure; Z82.5 Family history of asthma and other chronic lower respiratory diseases; Z82.3 Family history of stroke; Z81.2 Family history of tobacco abuse and dependence; Z82.49 Family history of ischemic heart disease and other diseases of the circulatory system
CPT/HCPCS: 36415; 51702; 70450; 71045; 80048; 81001; 82803; 83880; 85025; 85610; 85730; 86850; 86900; 86901; 87040; 87086; 93005; 94640; 96374; 99285